=== PATIENT | male | born 1940 | race Caucasian/White ===

== ENCOUNTER 2017-01-03 10:41 | Emergency (ER) | payer MEDICARE, OTHER ==
[~2017-01-03] VITALS: Ht 182.9 cm; Wt 104.3 kg
[~2017-01-03 10:41] MED LIST: ASP81TEC PO; CHLO25TA14 PO; CITA-105 PO; HYDR-3456 PO; HYDR-3583 PO; LEVO500T69 PO; LORA0.5T PO; METR500T PO; NAPR-243 PO; NFPRILOC40 PO; OMEP20CA12 PO; OXYC-12 PO; POTA10CA43 PO; PRD10T PO; TRIA1TAB2 PO
--- NOTE | 2017-01-03 11:17 | ED Upper Extremity ---
General Stated Complaint: R SHOULDER PAIN - FALL Source: patient Exam Limitations: no limitations History of Present Illness Time seen by provider: 11:16 Initial Comments To ER with right shoulder pain after he fell landing directly on the right shoulder this morning at 6 a.m. Complaints of inability to abduct his arm at the shoulder. He is, however, able to move his shoulder. Denies hitting his head or neck pain. Denies any other pain or injury. History of rotator cuff repair bilaterally. Onset: just prior to arrival Severity: moderate (I) Pain/Injury Location: right shoulder Modifying Factors: Worse With Movement Allergies and Home Medications Allergies Coded Allergies: ibuprofen (Verified Allergy, Intermediate, HEART FLUTTERS, 05/26/07) Home Medications Hydrocodone/Acetaminophen 1 Each Tablet, 1-2 TAB PO Q4-6HR PRN for PAIN, #30 FOR PAIN Prescribed by: RHONDA LINN on 10/10/14 6966 Lorazepam 0.5 Mg Tablet, 0.5 MG PO Q8H PRN, (Reported) prn anxiety Tramadol HCl 50 Mg Tablet, 50 MG PO Q6H PRN for NAUSEA/VOMITING-1ST LINE, #20 Prescribed by: EDIS DUBON on 01/03/17 1158 Constitutional: see HPI EENTM: see HPI Respiratory: no symptoms reported Cardiovascular: no symptoms reported Genitourinary: no symptoms reported Musculoskeletal: see HPI Skin: no symptoms reported Psychiatric/Neurological: No Symptoms Reported Past Zjrguiz-Vlliya-Qnvikf Hx Patient Social History Recent Foreign Travel: No Contact w/Someone Who Travel: No Immunizations Up To Date Tetanus Booster (TDap): More than 5yrs Date of Pneumonia Vaccine: Mar 12, 2009 Date of Influenza Vaccine: Feb 13, 2014 Surgeries Surgeries: Appendectomy, Gallbladder, Joint Replacement, Orthopedic Cardiovascular Cardiac Disorders: Hypertension Reproductive System Hx Reproductive Disorders: No Sexually Transmitted Disease: No Psychosocial Behavioral Health Disorders: Anxiety, Depression Physical Exam Vital Signs Vital Sign - Last 12Hours 01/03/17 11:11 Temp 97.6 Pulse 76 Resp 18 B/P (MAP) 133/66 Pulse Ox 98 O2 Delivery Room Air Capillary Refill : General Appearance: WD/WN, no apparent distress HEENT: PERRL/EOMI, normal ENT inspection Neck: non-tender, full range of motion Respiratory: normal breath sounds, no respiratory distress, no accessory muscle use Gastrointestinal: normal bowel sounds, non tender, soft Shoulder: normal inspection, limited ROM, pain, No soft tissue tenderness, No swelling Elbow/Forearm: normal inspection, non-tender Wrist: Yes normal inspection, Yes non-tender Hand: normal inspection, non-tender Neurologic/Psychiatric: alert, normal mood/affect, oriented x 3 Skin: normal color, warm/dry Progress/Results/Core Measures Results/Orders My Orders Orders - EDIS DUBON APRN Shoulder, Right, 3 Views (01/03/17 11:15) Ct Extremity Upper Right Wo (01/03/17 11:27) Chest Pa/Lat (2 View) (01/03/17 11:27) Vital Signs/I&O Vital Sign - Last 12Hours 01/03/17 11:11 Temp 97.6 Pulse 76 Resp 18 B/P (MAP) 133/66 Pulse Ox 98 O2 Delivery Room Air Diagnostic Imaging Diagonstic Imaging: Xray Comments NAME: MATEUSMILLY Gonzales [facility] REC#: [id number] PT STATUS: REG ER : 1940 PHYSICIAN: EDIS DUBON APRN ADMIT DATE: 01/03/17/ER Draft Date of Exam:01/03/17 CHEST PA/LAT (2 VIEW) INDICATION: Right-sided pain 2 views of the chest shows cardiomegaly with normal vascularity. The lungs are clear. There is no effusion or pneumothorax. There are changes of several prior kyphoplasties in the thoracolumbar spine. No acute bony abnormality is seen. IMPRESSION: There is cardiomegaly with no failure. The chest is similar to a prior study from 10/10/2014. Dictated on workstation # [id number] Dict: 01/03/17 1138 Trans: 01/03/17 1144 [facility] [id number] Interpreted by: ARCADIO AGUIRRE MD Electronically signed by: NAME: MATEUSMILLY Janet [facility] REC#: [id number] PT STATUS: REG ER : 1940 PHYSICIAN: EDIS DUBON APRN ADMIT DATE: 01/03/17/ER Draft Date of Exam:01/03/17 CT EXTREMITY UPPER RIGHT WO PROCEDURE: CT right upper extremity without contrast. TECHNIQUE: Multiple contiguous axial images were obtained through the right upper extremity without the use of intravenous contrast. Sagittal and coronal reformations were then performed. INDICATION: Right shoulder pain. Fall. COMPARISON: Right shoulder radiographs 01/03/2017. FINDINGS: Mildly displaced fracture involving the base of the coracoid process. This appears to extend into the most superior aspect of the glenoid fossa. Moderate degenerative changes in the right glenohumeral and acromioclavicular joints. Suture anchor in the right humeral head. No other fractures are identified. The visualized soft tissues are unremarkable. IMPRESSION: Mildly displaced right scapular fracture through the base of the coracoid process. The fracture line appears to involve the most superior aspect of the glenoid fossa. No other acute CT findings in the right shoulder. Dictated on workstation # [id number] Dict: 01/03/17 1150 Trans: 01/03/17 1156 [facility] [id number] Interpreted by: BO WHEATLEY MD Electronically signed by: Departure Impression Impression: Primary Impression: Scapula fracture Disposition: 01 HOME, SELF-CARE Condition: Stable Departure-Patient Inst. Decision time for Depature: 11:56 Referrals: DA TRUONG MD (PCP/Family) Primary Care Physician SHANTANU CHACON JONATHAN MD IPSEN,PERI ALMAGUER,ZACKERY LAWS MD,SHEA ASCENCIO MD Patient Instructions: How to Use a Shoulder Sling Add. Discharge Instructions: 1. You have a nondisplaced fracture of your shoulder blade. He should wear a sling for the next 4-6 weeks and follow-up with orthopedics for further recommendations. I've listed local orthopedic surgeons for you, but he may use whoever he would like. These typically do not require surgery. Scripts Tramadol HCl (Ultram) 50 Mg Tablet 50 MG PO Q6H Y for NAUSEA/VOMITING-1ST LINE, #20 TAB Prov: EDIS DUBON APRN 01/03/17 Copy Copies To 1: SHEA GREENE MD, PETER J APRN Jan 03, 2017 11:17
--- NOTE | 2017-01-03 11:33 | Diagnostic Imaging Report ---
INDICATION: Fall, right shoulder pain 3 views of the right shoulder shows no fracture, dislocation or other acute bony abnormality. [place] screw is seen in the humeral head from prior surgery. IMPRESSION: No acute abnormality is seen. Dictated by: Dictated on workstation # [id number]
--- NOTE | 2017-01-03 11:44 | Diagnostic Imaging Report ---
INDICATION: Right-sided pain 2 views of the chest shows cardiomegaly with normal vascularity. The lungs are clear. There is no effusion or pneumothorax. There are changes of several prior kyphoplasties in the thoracolumbar spine. No acute bony abnormality is seen. IMPRESSION: There is cardiomegaly with no failure. The chest is similar to a prior study from 10/10/2014. Dictated by: Dictated on workstation # [id number]
--- NOTE | 2017-01-03 11:56 | Diagnostic Imaging Report ---
PROCEDURE: CT right upper extremity without contrast. TECHNIQUE: Multiple contiguous axial images were obtained through the right upper extremity without the use of intravenous contrast. Sagittal and coronal reformations were then performed. INDICATION: Right shoulder pain. Fall. COMPARISON: Right shoulder radiographs 01/03/2017. FINDINGS: Mildly displaced fracture involving the base of the coracoid process. This appears to extend into the most superior aspect of the glenoid fossa. Moderate degenerative changes in the right glenohumeral and acromioclavicular joints. Suture anchor in the right humeral head. No other fractures are identified. The visualized soft tissues are unremarkable. IMPRESSION: Mildly displaced right scapular fracture through the base of the coracoid process. The fracture line appears to involve the most superior aspect of the glenoid fossa. No other acute CT findings in the right shoulder. Dictated by: Dictated on workstation # [id number]
[2017-01-03] MEDS ORDERED: TRAM-42 PO (11:58)
[2017-01-03 12:28] VITALS: BP 133/66
== END 2017-01-03 12:29 | disposition home or self-care (01) ==
LOC: EDUNIT# 10:41 → ER 10:42
DX: S42.131A Displaced fracture of coracoid process, right shoulder, initial encounter for closed fracture (principal); I10 Essential (primary) hypertension; F41.9 Anxiety disorder, unspecified; F32.9 Major depressive disorder, single episode, unspecified; Z90.49 Acquired absence of other specified parts of digestive tract; W18.30XA Fall on same level, unspecified, initial encounter
CPT/HCPCS: 71020; 73030; 73200; 99282

== ENCOUNTER 2019-01-29 14:44 | Emergency (ER) | payer MEDICARE, OTHER | END 2019-01-29 16:02 | disposition home or self-care (01) | LOC: ER 14:44 ==

== ENCOUNTER → 2019-05-20 | Outpatient (CLI) | payer MEDICARE, OTHER ==
[~2019-05-20] MED LIST changes: +AZIT250T12 PO; +IBUP-1773 PO; +LOSA100T57 PO; +TRAM-42 PO; +VENL150C98 PO
== END ==
LOC: CARD 11:43
PROVIDERS: ATTEND Internal Medicine Cardiovascular Disease
DX: I08.0 Rheumatic disorders of both mitral and aortic valves (principal); I11.0 Hypertensive heart disease with heart failure; I50.9 Heart failure, unspecified; E66.9 Obesity, unspecified; R60.9 Edema, unspecified
CPT/HCPCS: 93306

== ENCOUNTER 2020-08-13 02:12 | Inpatient (IN) | payer MEDICARE ==
[~2020-08-13] VITALS: Ht 177 cm; Wt 100.5 kg
[2020-08-13] MEDS ORDERED: AMIODARONE (BOLUS) 150 MG/3 ML IV ONE (02:18)
[2020-08-13] MEDS ORDERED: AMIODARONE 450 MG/9 ML (CORDARONE) VIAL IV ONE (02:18)
[2020-08-13] MEDS ORDERED: NS (IVPB) 250 ML ONE (02:22)
[2020-08-13] MEDS ORDERED: AMIODARONE INJECTION 450 MG in D5W IV SOLUTION (EXCEL) 250 ML IV SCH (02:30)
[2020-08-13] MEDS ORDERED: AMIODARONE INJECTION 150 MG in D5W 100 ML IVPB 100 ML IV ONE (02:30)
[2020-08-13] MEDS ORDERED: NS IV 1000 ML 1,000 ML IV SCH ×2 (02:30→12:30)
[2020-08-13 02:35] LABS: BASOPHILS # (AUTO) 0.1 10^3/uL (0.0-0.1); BASOPHILS % (AUTO) 1 % (0-10); EOSINOPHILS # (AUTO) 0.1 10^3/uL (0.0-0.3); EOSINOPHILS % (AUTO) 1 % (0-10); HEMATOCRIT 39 % (40-54); HEMOGLOBIN 12.6 g/dL (13.3-17.7); LYMPHOCYTES # (AUTO) 1.5 10^3/uL (1.0-4.0); LYMPHOCYTES % (AUTO) 9 % (12-44); MEAN CORPUSCULAR HEMOGLOBIN 28 pg (25-34); MEAN CORPUSCULAR HGB CONC 32 g/dL (32-36); MEAN CORPUSCULAR VOLUME 89 fL (80-99); MEAN PLATELET VOLUME 11.7 fL (9.0-12.2); MONOCYTES # (AUTO) 1.3 10^3/uL (0.0-1.0); MONOCYTES % (AUTO) 8 % (0-12); NEUTROPHILS # (AUTO) 13.5 10^3/uL (1.8-7.8); NEUTROPHILS % (AUTO) 81 % (42-75); PLATELET COUNT 229 10^3/uL (130-400); WHITE BLOOD COUNT 16.6 10^3/uL (4.3-11.0)
[2020-08-13 02:41] LABS: INR 1.1 (0.8-1.4); PROTHROMBIN TIME PATIENT 14.4 SEC (12.2-14.7)
[2020-08-13 02:42] LABS: BILIRUBIN,URINE NEGATIVE (NEGATIVE); CLARITY,URINE CLEAR; COLOR,URINE YELLOW; GLUCOSE, URINE (UA) NEGATIVE (NEGATIVE); KETONES,URINE NEGATIVE (NEGATIVE); LEUKOCYTE ESTERASE ,URINE NEGATIVE (NEGATIVE); NITRITE,URINE NEGATIVE (NEGATIVE); PH,URINE 5.5 (5-9); PROTEIN,URINE 1+ (NEGATIVE)
--- NOTE | 2020-08-13 02:45 | ED General ---
General Chief Complaint: General Problems/Pain Stated Complaint: DIZZINESS / FALL Nursing Triage Note: brought in by [facility] c/o multiple falls, generalized weakness, near syncope. Nursing Sepsis Screen: No Definite Risk Source of Information: Patient, EMS, Old Records History of Present Illness Date Seen by Provider: Aug 13, 2020 Time Seen by Provider: 02:13 Initial Comments PT ARRIVES VIA EMS FROM HOME PT HAS BEEN DIZZY AND WEAK ALL DAY TODAY--SINCE THURSDAY MORNING 08/12/20 EVERY TIME HE STANDS UP, HE NEARLY PASSES OUT. PT STATES HE FEELS FINE LAYING DOWN PT HAS FALLEN TWICE TODAY BECAUSE OF THIS PT DENIES ACTUALLY PASSING OUT PT DENIES HITTING HIS HEAD AT ANY TIME PT REPORTEDLY FALLS AT LEAST ONCE A WEEK. PT FELL EARLIER TODAY IN THE BATHROOM AND EMS WAS CALLED. PT HAD THESE COMPLAINTS, AND COMPLAINED OF RIGHT SHOULDER PAIN PT REFUSED CARE AT THAT TIME PT CALLED EMS AGAIN THIS EVENING AFTER ANOTHER FALL IN THE HALLWAY HE HAS SOME BRUISING TO LEFT FOREARM AND SMALL SKIN TEARS TO LEFT FOREARM HE DENIES ANY OTHER PAIN OR INJURIES FROM THESE FALLS NO CHEST PAIN NO PALPITATIONS NO SHORTNESS OF BREATH NO NAUSEA/VOMITING OR DIARRHEA NO COUGH OR URI SYMPTOMS NO FEVER/SWEATS/CHILLS WAS INCONTINENT OF URINE EARLIER--STATES HE WAS TOO WEAK AND DIZZY TO MAKE IT TO THE BATHROOM IN TIME. NO HEADACHE NO VISION CHANGES NO PARESTHESIAS OR MOTOR DEFICITS NO NECK OR BACK PAIN PT COMPLAINS OF RIGHT SHOULDER PAIN WITH DEEP BREATHING HE ALSO COMPLAINS OF RLQ PAIN WITH DEEP BREATHING--STATES HE HAS A HERNIA IN THIS AREA. IT DOES NOT HURT HIM ANY OTHER TIME. STATES HE HAD A "GOOD BREAKFAST" THEN HAS NOT FELT LIKE EATING FOR THE REST OF THE DAY PT STATES IS CURRENTLY IN THE HOSPITAL FOR "SHINGLES AND A MILD HEART ATTACK" PT HAS HAD BOTH COVID-19 VACCINES PT DENIES ANY HISTORY OF CARDIAC PROBLEMS PCP: DR. TRUONG Allergies and Home Medications Allergies Coded Allergies: No Known Drug Allergies (Unverified , 01/29/19) Home Medications Azithromycin 250 Mg Tablet, 250 MG PO UD TAKE 2 TABLETS ON DAY ONE THEN TAKE 1 TABLET DAILY FOR FOUR MORE DAYS Prescribed by: YENNI MULLINS on 01/29/19 4179 Ibuprofen 600 Mg Tablet, 600 MG PO Q6H PRN for PAIN-MILD, (Reported) Losartan Potassium 100 Mg Tablet, 100 MG PO DAILY, (Reported) Patient Home Medication List Home Medication List Reviewed: Yes Review of Systems Review of Systems Constitutional: No chills, No diaphoresis; dizziness; No fever; weakness EENTM: no symptoms reported Respiratory: no symptoms reported; No cough, No short of breath Cardiovascular: no symptoms reported, see HPI; No chest pain Gastrointestinal: see HPI; No diarrhea; loss of appetite; No nausea, No vomit ing Genitourinary: see HPI Musculoskeletal: see HPI Skin: see HPI Psychiatric/Neurological: Denies Headache, Denies Numbness, Denies Paresthesia, Denies Seizure, Denies Tingling, Denies Weakness Past Luknrhf-Inxdfn-Yqgzey Hx Past Med/Social Hx: Reviewed and Corrections made Patient Social History Alcohol Use: Denies Use Drug of Choice: DENIES Smoking Status: Former Smoker Type Used: Cigarettes Former Smoker, Quit: Jan 31, 1985 Recent Infectious Disease Expo: No Recent Hopitalizations: No Immunizations Up To Date Tetanus Booster (TDap): More than 5yrs Date of Pneumonia Vaccine: Mar 12, 2009 Date of Influenza Vaccine: Feb 13, 2014 Seasonal Allergies Seasonal Allergies: No Past Medical History Surgeries: Yes (BILAT RCR, HAND SURG, L TKR, THORACENTESIS;COLONOSCOPIES/POLYPECTOMY) Appendectomy, Gallbladder, Joint Replacement, Orthopedic Respiratory: Yes Pneumonia Cardiac: Yes ( ) Chronic Edema/Swelling, High Cholesterol, Hypertension, Rheumatic Fever Neurological: No Reproductive Disorders: No Sexually Transmitted Disease: No Genitourinary: Yes ("KIDNEY PROBLEMS" ) Gastrointestinal: Yes Gastroesophageal Reflux, Polyps Musculoskeletal: Yes (ROTATOR CUFF REPAIR, LEFT TOTAL KNEE REPLACEMENT, HAND SURGERY) Arthritis Endocrine: Yes (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) Lupus HEENT: No Cancer: No Psychosocial: Yes Anxiety, Depression Integumentary: Yes (CUTANEOUS LUPUS, 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) Blood Disorders: No Family Medical History SOCIAL HISTORY: -ETOH--HISTORY OF USE/ABUSE -DRUGS-DENIES USE -SMOKED 1 PPD X 30 YEARS, QUIT SEVERAL YEARS AGO PAST SURGICAL HISTORY: -BILATERAL ROTATOR CUFF REPAIR -HAND SURGERY -LEFT TOTAL KNEE REPLACEMENT -LEFT THORACENTESIS 10/2012 FOR PLEURAL EFFUSION -APPENDECTOMY -CHOLECYSTECTOMY ( GANGRENOUS GALLBLADDER) -COLONOSCOPY WITH POLYPECTOMY 2013 -BILATERAL CATARACT SURGERY Physical Exam Vital Signs Vital Signs - First Documented 08/13/20 08/13/20 02:13 02:35 Temp 36.0 Pulse 92 Resp 24 B/P (MAP) 104/63 (77) Pulse Ox 91 O2 Delivery Room Air O2 Flow Rate 2.00 Capillary Refill : Less Than 3 Seconds Height, Weight, BMI Height: 6'0" Weight: 230lbs. oz. 104.071523ut; 29.00 BMI Method:Stated General Appearance: No Apparent Distress, WD/WN, Obese HEENT: PERRL/EOMI Neck: Full Range of Motion, Non Tender Respiratory: Decreased Breath Sounds (IN BASES), Other (MILDLY DYSPNEIC--PT STATES HE DOES NOT FEEL SHORT OF BREATH) Cardiovascular: No JVD, No Murmur, Other (INTERMITENT V-TACH, WITH REGULAR RHYTHM IN BETWEEN RUNS OF V-TACH) Gastrointestinal: Soft Extremity: Pedal Edema (+ 1 EDEMA OF RIGHT LEG/ANKLE/FOOT, NO SIGNIFICANT EDEMA TO LEFT LEG. ) Neurologic/Psychiatric: Alert, Oriented x3, No Motor/Sensory Deficits, Other (FLAT AFFECT. ) Skin: Normal Color, Warm/Dry, Ecchymosis (TO LEFT ARM WITH A FEW SUPERFICIAL SKIN TEARS) Progress/Results/Core Measures Suspected Sepsis Recent Fever Within 48 Hours: No Infection Criteria Present: None New/Unexplained Altered Menta: No Sepsis Screen: No Definite Risk SIRS Temperature: Pulse: 92 Respiratory Rate: 24 Laboratory Tests 08/13/20 02:15: White Blood Count 16.6H Blood Pressure 104 /63 Mean: 77 Laboratory Tests 08/13/20 02:15: Creatinine 1.53H, INR Comment 1.1, Platelet Count 229, Total Bilirubin 0.7 Results/Orders Lab Results Laboratory Tests Test 08/13/20 02:15 08/13/20 02:30 Range/Units White Blood Count 16.6 H 4.3-11.0 10^3/uL Red Blood Count 4.43 4.30-5.52 10^6/uL Hemoglobin 12.6 L 13.3-17.7 g/dL Hematocrit 39 L 40-54 % Mean Corpuscular Volume 89 80-99 fL Mean Corpuscular Hemoglobin 28 25-34 pg Mean Corpuscular Hemoglobin Concent 32 32-36 g/dL Red Cell Distribution Width 13.8 10.0-14.5 % Platelet Count 229 130-400 10^3/uL Mean Platelet Volume 11.7 9.0-12.2 fL Immature Granulocyte % (Auto) 1 % Neutrophils (%) (Auto) 81 H 42-75 % Lymphocytes (%) (Auto) 9 L 12-44 % Monocytes (%) (Auto) 8 0-12 % Eosinophils (%) (Auto) 1 0-10 % Basophils (%) (Auto) 1 0-10 % Neutrophils # (Auto) 13.5 H 1.8-7.8 10^3/uL Lymphocytes # (Auto) 1.5 1.0-4.0 10^3/uL Monocytes # (Auto) 1.3 H 0.0-1.0 10^3/uL Eosinophils # (Auto) 0.1 0.0-0.3 10^3/uL Basophils # (Auto) 0.1 0.0-0.1 10^3/uL Immature Granulocyte # (Auto) 0.1 0.0-0.1 10^3/uL Neutrophils % (Manual) 81 % Lymphocytes % (Manual) 11 % Monocytes % (Manual) 4 % Band Neutrophils 4 % Blood Morphology Comment NORMAL Prothrombin Time 14.4 12.2-14.7 SEC INR Comment 1.1 0.8-1.4 Activated Partial Thromboplast Time 33 24-35 SEC D-Dimer 2.57 H 0.00-0.49 UG/ML Sodium Level 139 135-145 MMOL/L Potassium Level 3.6 3.6-5.0 MMOL/L Chloride Level 102 98-107 MMOL/L Carbon Dioxide Level 19 L 21-32 MMOL/L Anion Gap 18 H 5-14 MMOL/L Blood Urea Nitrogen 16 7-18 MG/DL Creatinine 1.53 H 0.60-1.30 MG/DL Estimat Glomerular Filtration Rate 44 BUN/Creatinine Ratio 10 Glucose Level 215 H 70-105 MG/DL Calcium Level 9.2 8.5-10.1 MG/DL Corrected Calcium 9.6 8.5-10.1 MG/DL Magnesium Level 3.0 H 1.6-2.4 MG/DL Total Bilirubin 0.7 0.1-1.0 MG/DL Aspartate Amino Transf (AST/SGOT) 20 5-34 U/L Alanine Aminotransferase (ALT/SGPT) 23 0-55 U/L Alkaline Phosphatase 60 40-136 U/L Total Creatine Kinase 62 30-200 U/L Creatine Kinase MB 1.6 <6.6 NG/ML Myoglobin 160.3 H 10.0-92.0 NG/ML Troponin I 0.037 H <0.028 NG/ML B-Type Natriuretic Peptide 106.7 H <100.0 PG/ML Total Protein 6.8 6.4-8.2 GM/DL Albumin 3.5 3.2-4.5 GM/DL Procalcitonin 0.16 H <0.10 NG/ML Urine Color YELLOW Urine Clarity CLEAR Urine pH 5.5 5-9 Urine Specific [place] >=1.030 1.016-1.022 Urine Protein 1+ H NEGATIVE Urine Glucose (UA) NEGATIVE NEGATIVE Urine Ketones NEGATIVE NEGATIVE Urine Nitrite NEGATIVE NEGATIVE Urine Bilirubin NEGATIVE NEGATIVE Urine Urobilinogen 0.2 < = 1.0 MG/DL Urine Leukocyte Esterase NEGATIVE NEGATIVE Urine RBC (Auto) NEGATIVE NEGATIVE Urine RBC NONE /HPF Urine WBC NONE /HPF Urine Squamous Epithelial Cells RARE /HPF Urine Crystals NONE /LPF Urine Bacteria NEGATIVE /HPF Urine Casts NONE /LPF Urine Mucus NEGATIVE /LPF Urine Culture Indicated NO My Orders Orders - RHONDA LINN DO Ed Iv/Invasive Line Start (08/13/20 02:24) Ekg Tracing (08/13/20 02:24) Catheter(Urinary) Insert & Ass 03,15 (08/13/20 02:24) O2 (08/13/20 02:24) Monitor-Rhythm Ecg Trace Only (08/13/20 02:24) Ct Head Wo-R/O Stroke (08/13/20 02:24) Chest 1 View, Ap/Pa Only (08/13/20 02:24) BNP (08/13/20 02:24) Cbc With Automated Diff (08/13/20 02:24) Comprehensive Metabolic Panel (08/13/20 02:24) Creatine Kinase (08/13/20 02:24) Creatine Kinase Mb (08/13/20 02:24) Magnesium (08/13/20 02:24) Protime With Inr (08/13/20 02:24) Partial Thromboplastin Time (08/13/20 02:24) Ua Culture If Indicated (08/13/20 02:24) Myoglobin Serum (08/13/20 02:24) Troponin I (08/13/20 02:24) Ed Iv/Invasive Line Start (08/13/20 02:24) Ns Iv 1000 Ml (Sodium Chloride 0.9%) (08/13/20 02:30) Ekg Tracing (08/13/20 02:24) Ekg Tracing (08/13/20 02:24) Amiodarone Injection (Cordarone Injectio (08/13/20 02:30) Amiodarone Injection (Cordarone Injectio (08/13/20 02:30) Amiodarone For Bolus (Cordarone Bolus) (08/13/20 02:18) Amiodarone Injection (Cordarone Injectio (08/13/20 02:18) Ns (Ivpb) (Sodium Chloride 0.9%) (08/13/20 02:22) Manual Differential (08/13/20 02:15) Medications Given in ED Current Medications Medications Dose Ordered Sig/Gaby Route Start Time Stop Time Status Last Admin Dose Admin Amiodarone HCl 150 mg STK-MED ONCE IV 08/13/20 02:18 08/13/20 02:26 DC 08/13/20 02:37 150 MG Amiodarone HCl 150 mg/Dextrose 103 ml @ 600 mls/hr ONCE ONCE IV 08/13/20 02:30 08/13/20 02:40 DC 08/13/20 02:39 600 MLS/HR Vital Signs/I&O 08/13/20 08/13/20 08/13/20 02:13 02:35 02:37 Temp 36.0 Pulse 92 92 Resp 24 B/P (MAP) 104/63 (77) 104/63 Pulse Ox 91 93 O2 Delivery Room Air Nasal Cannula O2 Flow Rate 2.00 Capillary Refill : Less Than 3 Seconds Blood Pressure Mean: 77 Progress Note : Progress Note PT IN V-TACH ON ARRIVAL, PT IS UNAWARE OF IRREGULAR HEART BEAT AND STATES HE FEELS FINE LONG HE IS LAYING DOWN PT IS HAVING FREQUENT RUNS OF V-TACH, WITH NORMAL SINUS RHYTHM IN BETWEEN GIVEN AMIODARONE BOLUS AND STARTED ON AMIODARONE DRIP, WITH RESOLUTION OF V-TACH AFTER RECEIVING HEAD CT REPORT, GAVE PT DOSE OF LOVENOX WILL OBTAIN ULTRASOUND, ECHOCARDIOGRAM AND V/Q SCAN IN AM--GFR 44 AT THIS TIME, BELOW RECOMMENDED LEVEL FOR IV CONTRAST. O2 SATS 92-93% ON ROOM AIR, PLACED ON O2 AT 2L/NC AND O2 SATS UP TO 97% BP STABLE THROUGHOUT ER STAY PT HAD NO COMPLAINTS DURING ER STAY ECG Initial ECG Impression Date: Aug 13, 2020 Initial ECG Impression Time: 02:18 Initial ECG Rate: 128 Initial ECG Rhythm: V.Tach Initial ECG Comparisson: Changed EKG : EKG Time: 02:18 Rate: 118 Rhythm: V.Tach Comment EKG #3 AT 0220, RATE 101, SINUS ARRHYTHMIA Diagnostic Imaging Comments CXR--CHRONIC LUNG CHANGES, NO CHANGE FROM PREVIOUS, PENDING RADIOLOGIST REVIEW XRAYS RIGHT SHOULDER--NO ACUTE PROCESS, CHRONIC CHANGES, PENDING RADIOLOGIST REVIEW CT HEAD--NO ACUTE INFARCT, HEMORRHAGE OR EDEMA. PER RADIOLOGIST VIA PHONE AT [phone], AND VIA FAX AT [phone] Critical Care Note Critical Care Total Time (minutes) 30 Departure Communication (Admissions) 0220--SPOKE WITH DR. GARCIA, [employer]SEM[employer]. HE ADVISES AMIODARONE BOLUS AND DRIP. 032--SPOKE WITH DR. LANCASTER, ACCEPTS PT FOR ADMIT 033--SPOKE WITH E-ICU PHYSICIAN AND REPORT GIVEN. Impression Primary Impression: Ventricular tachycardia Additional Impressions: Elevated troponin Leg edema Renal insufficiency Hyperglycemia Frequent falls Disposition: ADMITTED INPATIENT Condition: Stable Admissions Decision to Admit Reason: Admit from ER (General) Decision to Admit/Date: Aug 13, 2020 Time/Decision to Admit Time: 03:30 Departure-Patient Inst. Referrals: DA TRUONG MD (PCP/Family) Primary Care Physician RHONDA LINN DO Aug 13, 2020 02:45
[2020-08-13 02:46] LABS: ALBUMIN 3.5 GM/DL (3.2-4.5); BILIRUBIN,TOTAL 0.7 MG/DL (0.1-1.0); CALCIUM 9.2 MG/DL (8.5-10.1); CREATININE SERUM 1.53 MG/DL (0.60-1.30); POTASSIUM 3.6 MMOL/L (3.6-5.0); TOTAL PROTEIN 6.8 GM/DL (6.4-8.2)
[2020-08-13 02:53] LABS: CREATINE KINASE MB 1.6 NG/ML (<6.6)
[2020-08-13 02:57] LABS: BACTERIA,URINE NEGATIVE /HPF; SQUAMOUS EPITHELIAL CELL,UR RARE /HPF
[2020-08-13 03:07] LABS: BAND NEUTROPHILS 4 %; LYMPHOCYTES % (MANUAL) 11 %; MONOCYTES % (MANUAL) 4 %; NEUTROPHILS % (MANUAL) 81 %; RBC MORPH NORMAL
[2020-08-13] MEDS ORDERED: ENOXAPARIN 100 MG/1 ML (LOVENOX) SYR SC ONE (04:00)
[2020-08-13 04:10] VITALS: BP 100/33
[2020-08-13] MEDS ORDERED: CATHETER FLUSH 10 ML SYR IV PRN (05:00)
[2020-08-13] MEDS ORDERED: LACTATED RINGERS 1,000 ML IV ONE (05:22)
--- NOTE | 2020-08-13 05:24 | Pulmonary Consultation ---
History of Present Illness History of Present Illness Date Seen by Provider: Aug 13, 2020 Time Seen by Provider: 05:19 Date of Admission Allergies and Home Medications Allergies Coded Allergies: No Known Drug Allergies (Unverified , 01/29/19) Home Medications Azithromycin 250 Mg Tablet, 250 MG PO UD TAKE 2 TABLETS ON DAY ONE THEN TAKE 1 TABLET DAILY FOR FOUR MORE DAYS Prescribed by: YENNI MULLINS on 01/29/19 1539 Ibuprofen 600 Mg Tablet, 600 MG PO Q6H PRN for PAIN-MILD, (Reported) Losartan Potassium 100 Mg Tablet, 100 MG PO DAILY, (Reported) Past Uqbmtym-Hlruoj-Bywdxj Hx Past Med/Social Hx: Reviewed and Corrections made Patient Social History Alcohol Use: Denies Use Drug of Choice: DENIES Smoking Status: Former Smoker Type Used: Cigarettes Former Smoker, Quit: Jan 31, 1985 Recent Infectious Disease Expo: No Recent Hopitalizations: No Have you traveled recently?: No Immunizations Up To Date Tetanus Booster (TDap): More than 5yrs Date of Pneumonia Vaccine: Mar 12, 2009 Date of Influenza Vaccine: Mar 11, 2020 Seasonal Allergies Seasonal Allergies: No Past Medical History Surgeries: Yes (BILAT RCR, HAND SURG, L TKR, THORACENTESIS;COLONOSCOPIES/POLYPECTOMY) Appendectomy, Gallbladder, Joint Replacement, Orthopedic Respiratory: Yes Pneumonia Cardiac: Yes (CHF) Chronic Edema/Swelling, High Cholesterol, Hypertension Neurological: No Reproductive Disorders: No Sexually Transmitted Disease: No Genitourinary: No Gastrointestinal: Yes Gastroesophageal Reflux, Polyps Musculoskeletal: Yes (ROTATOR CUFF REPAIR, LEFT TOTAL KNEE REPLACEMENT, HAND SURGERY) Arthritis Endocrine: Yes (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 oz. 104.262174ys; 29.04 BMI Method:Stated Exam Exam Vital Signs Date Time Temp Pulse Resp B/P (MAP) Pulse Ox O2 Delivery O2 Flow Rate FiO2 08/13/20 04:52 97 Nasal Cannula 2.00 08/13/20 04:41 36.4 80 18 107/66 (80) 97 Nasal Cannula 2.00 08/13/20 04:10 36.6 79 18 100/33 98 Nasal Cannula 2.00 08/13/20 02:37 92 104/63 08/13/20 02:35 93 Nasal Cannula 2.00 08/13/20 02:13 36.0 92 24 104/63 (77) 91 Room Air I & O 08/13/20 07:00 Intake Total 1103 ml Balance 1103 ml Height & Weight Height: 6'0" Weight: 230lbs. oz. 104.083905tn; 29.04 BMI Method:Stated General Appearance: No Apparent Distress, WD/WN, Obese HEENT: PERRL/EOMI Neck: Full Range of Motion, Non Tender Respiratory: Decreased Breath Sounds (IN BASES), Other (MILDLY DYSPNEIC--PT STATES HE DOES NOT FEEL SHORT OF BREATH) Cardiovascular: No JVD, No Murmur, Other (INTERMITENT V-TACH, WITH REGULAR RHYTHM IN BETWEEN RUNS OF V-TACH) Capillary Refill: Less Than 3 Seconds Extremity: Pedal Edema (+ 1 EDEMA OF RIGHT LEG/ANKLE/FOOT, NO SIGNIFICANT EDEMA TO LEFT LEG. ) Neurologic/Psychiatric: Alert, Oriented x3, No Motor/Sensory Deficits, Other (FLAT AFFECT. ) Results Lab Laboratory Tests 08/13/20 02:15 Assessment/Plan Assessment/Plan Vtach upon arrival -Ammio gtt -Cardiology following -Echo pending -Start Lr at 100ml/hr Leukocytosis -Check Ornelas cultures -Check PCT Afib -Lovenox S/p fall -Head CT negative Acute renal failure -Monitor PT IN V-TACH ON ARRIVAL, PT IS UNAWARE OF IRREGULAR HEART BEAT AND STATES HE FEELS FINE LONG HE IS LAYING DOWN PT IS HAVING FREQUENT RUNS OF V-TACH, WITH NORMAL SINUS RHYTHM IN BETWEEN SHELBI GABRIEL DO Aug 13, 2020 05:23
[2020-08-13] MEDS ORDERED: LACTATED RINGERS 1,000 ML IV SCH (05:30)
[2020-08-13] MEDS: CATHETER FLUSH 10 ML SYR IV SCH ×3 (05:30→23:09)
--- NOTE | 2020-08-13 07:33 | Diagnostic Imaging Report ---
PROCEDURE: CT head wo r/o stroke. TECHNIQUE: Multiple contiguous axial images were obtained through the brain without the use of intravenous contrast. Auto Exposure Controls were utilized during the CT exam to meet ALARA standards for radiation dose reduction. INDICATION: Dizziness and fall COMPARISON: 10/10/2014 Ventricles and sulci are diffusely prominent. There has been mild overall worsening of low-density throughout the cerebral white matter however no hemorrhage is identified and there is no evidence of geographic low density to indicate territorial infarct. There is atherosclerotic calcification within distal internal carotid and vertebral arteries. Calvarium is intact. Mucous retention cyst or polyps are present in the left maxillary sinus. IMPRESSION: Mild worsening of probable chronic microvascular ischemia however no acute intracranial abnormality is identified. Dictated by: Dictated on workstation # [id number]
--- NOTE | 2020-08-13 07:37 | Diagnostic Imaging Report ---
Indication: Fall and dizziness AP view of the chest is obtained with comparison made to study of 01/29/2019. There is suboptimal inspiration. Heart size and pulmonary vascularity are at the upper limits of normal. There does appear to be atelectasis and/or pneumonitis in the right base. No pneumothorax is seen. IMPRESSION: Borderline cardiomegaly with right basilar atelectasis and/or pneumonitis. There has been minimal interval change. Dictated by: Dictated on workstation # [id number]
--- NOTE | 2020-08-13 07:39 | Diagnostic Imaging Report ---
INDICATION: Right shoulder pain AP and oblique views of the right shoulder reveal previous surgical findings with anchor in the humeral head. No acute fracture or malalignment is seen. IMPRESSION: No evidence of acute abnormality. Dictated by: Dictated on workstation # [id number]
[2020-08-13] MEDS: AMIODARONE 450 MG/250 ML D5W EXCEL IV SCH ×2 (10:35)
[2020-08-13] MEDS ORDERED: LIDOCAINE 1% INJ 20 ML 20 ML VIAL ONE (10:45)
[2020-08-13] MEDS ORDERED: HEParin (CATH LAB) 2,000 ML IV ONE (10:45)
[2020-08-13] MEDS ORDERED: fentaNYL INJ 100 MCG/2 ML AMP ONE (11:29)
[2020-08-13] MEDS ORDERED: MIDAZOLAM 5 MG/5 ML (VERSED) VIAL ONE (11:29)
[2020-08-13] MEDS ORDERED: NS IV 1000 ML 1,000 ML ONE (11:54)
--- NOTE | 2020-08-13 12:08 | Consultation-Cardiology ---
HPI-Cardiology Cardiology Consultation Date of Consultation 08/13/20 Date of Admission Time Seen by Provider: 12:02 Indication: Ventricular tachycardia HPI 80 years old gentleman with no significant past history, came into the emergency room noted to have dizziness and lightheadedness, has been having multiple falls, was noted to have ventricular tachycardia. Denied any chest pain. No shortness of breath, started on amiodarone drip. On my evaluation was feeling better. Home Medications & Allergies Allergies: Coded Allergies: No Known Drug Allergies (Unverified , 01/29/19) Home Medication List Reviewed: Yes [id number] Hx Patient Social History Marital Status: Recreational Drug Use: No Drug of Choice: DENIES Smoking Status: Former Smoker Type Used: Cigarettes Recent Hopitalizations: No Have you traveled recently?: No Immunizations Up To Date Tetanus Booster (TDap): More than 5yrs Date of Pneumonia Vaccine: Mar 12, 2009 Date of Influenza Vaccine: Mar 11, 2020 Past Medical History Noncontributory Family Medical History Family Medical Hx Noncontributory Review of Systems-General Review of Systems Constitutional: No chills, No diaphoresis; dizziness; No fever; weakness EENTM: no symptoms reported Respiratory: no symptoms reported; No cough, No short of breath Cardiovascular: see HPI; No chest pain; other (Dizziness and near syncope) Gastrointestinal: see HPI; No diarrhea; loss of appetite; No nausea, No vomiting Genitourinary: see HPI Musculoskeletal: see HPI Skin: see HPI Psychiatric/Neurological: Denies Headache, Denies Numbness, Denies Paresthesia, Denies Seizure, Denies Tingling, Denies Weakness Reviewed Test Results Reviewed Test Results Lab Laboratory Tests Test 08/13/20 02:15 08/13/20 02:30 08/13/20 06:00 08/13/20 08:05 Range/Units White Blood Count 16.6 H 4.3-11.0 10^3/uL Red Blood Count 4.43 4.30-5.52 10^6/uL Hemoglobin 12.6 L 13.3-17.7 g/dL Hematocrit 39 L 40-54 % Mean Corpuscular Volume 89 80-99 fL Mean Corpuscular Hemoglobin 28 25-34 pg Mean Corpuscular Hemoglobin Concent 32 32-36 g/dL Red Cell Distribution Width 13.8 10.0-14.5 % Platelet Count 229 130-400 10^3/uL Mean Platelet Volume 11.7 9.0-12.2 fL Immature Granulocyte % (Auto) 1 % Neutrophils (%) (Auto) 81 H 42-75 % Lymphocytes (%) (Auto) 9 L 12-44 % Monocytes (%) (Auto) 8 0-12 % Eosinophils (%) (Auto) 1 0-10 % Basophils (%) (Auto) 1 0-10 % Neutrophils # (Auto) 13.5 H 1.8-7.8 10^3/uL Lymphocytes # (Auto) 1.5 1.0-4.0 10^3/uL Monocytes # (Auto) 1.3 H 0.0-1.0 10^3/uL Eosinophils # (Auto) 0.1 0.0-0.3 10^3/uL Basophils # (Auto) 0.1 0.0-0.1 10^3/uL Immature Granulocyte # (Auto) 0.1 0.0-0.1 10^3/uL Neutrophils % (Manual) 81 % Lymphocytes % (Manual) 11 % Monocytes % (Manual) 4 % Band Neutrophils 4 % Blood Morphology Comment NORMAL Prothrombin Time 14.4 12.2-14.7 SEC INR Comment 1.1 0.8-1.4 Activated Partial Thromboplast Time 33 24-35 SEC D-Dimer 2.57 H 0.00-0.49 UG/ML Sodium Level 139 135-145 MMOL/L Potassium Level 3.6 3.6-5.0 MMOL/L Chloride Level 102 98-107 MMOL/L Carbon Dioxide Level 19 L 21-32 MMOL/L Anion Gap 18 H 5-14 MMOL/L Blood Urea Nitrogen 16 7-18 MG/DL Creatinine 1.53 H 0.60-1.30 MG/DL Estimat Glomerular Filtration Rate 44 BUN/Creatinine Ratio 10 Glucose Level 215 H 70-105 MG/DL Calcium Level 9.2 8.5-10.1 MG/DL Corrected Calcium 9.6 8.5-10.1 MG/DL Magnesium Level 3.0 H 1.6-2.4 MG/DL Total Bilirubin 0.7 0.1-1.0 MG/DL Aspartate Amino Transf (AST/SGOT) 20 5-34 U/L Alanine Aminotransferase (ALT/SGPT) 23 0-55 U/L Alkaline Phosphatase 60 40-136 U/L Total Creatine Kinase 62 30-200 U/L Creatine Kinase MB 1.6 <6.6 NG/ML Myoglobin 160.3 H 10.0-92.0 NG/ML Troponin I 0.037 H <0.028 NG/ML B-Type Natriuretic Peptide 106.7 H <100.0 PG/ML Total Protein 6.8 6.4-8.2 GM/DL Albumin 3.5 3.2-4.5 GM/DL Procalcitonin 0.16 H <0.10 NG/ML Urine Color YELLOW Urine Clarity CLEAR Urine pH 5.5 5-9 Urine Specific Chavies >=1.030 1.016-1.022 Urine Protein 1+ H NEGATIVE Urine Glucose (UA) NEGATIVE NEGATIVE Urine Ketones NEGATIVE NEGATIVE Urine Nitrite NEGATIVE NEGATIVE Urine Bilirubin NEGATIVE NEGATIVE Urine Urobilinogen 0.2 < = 1.0 MG/DL Urine Leukocyte Esterase NEGATIVE NEGATIVE Urine RBC (Auto) NEGATIVE NEGATIVE Urine RBC NONE /HPF Urine WBC NONE /HPF Urine Squamous Epithelial Cells RARE /HPF Urine Crystals NONE /LPF Urine Bacteria NEGATIVE /HPF Urine Casts NONE /LPF Urine Mucus NEGATIVE /LPF Urine Culture Indicated NO Lactic Acid Level 2.09 *H 1.88 0.50-2.00 MMOL/L Test 08/13/20 11:35 Range/Units Glucometer 124 H 70-110 MG/DL Physical Exam Physical Exam Vital Signs Vital Signs - First Documented 08/13/20 08/13/20 02:13 02:35 Temp 36.0 Pulse 92 Resp 24 B/P (MAP) 104/63 (77) Pulse Ox 91 O2 Delivery Room Air O2 Flow Rate 2.00 Capillary Refill : Less Than 3 Seconds Height, Weight, BMI Height: 6'0" Weight: 230lbs. oz. 104.076586pq; 29.04 BMI Method:Stated General Appearance: No Apparent Distress, WD/WN, Obese Eyes: Bilateral Eye Normal Inspection, Bilateral Eye PERRL, Bilateral Eye EOMI HEENT: PERRL/EOMI Neck: Full Range of Motion, Non Tender Respiratory: Chest Non Tender, Lungs Clear, Decreased Breath Sounds (IN BASES), Other (MILDLY DYSPNEIC--PT STATES HE DOES NOT FEEL SHORT OF BREATH) Cardiovascular: Regular Rate, Rhythm, No JVD, No Murmur Gastrointestinal: Soft Back: Normal Inspection, No CVA Tenderness, No Vertebral Tenderness Extremity: Pedal Edema (+ 1 EDEMA OF RIGHT LEG/ANKLE/FOOT, NO SIGNIFICANT EDEMA TO LEFT LEG. ) Neurologic/Psychiatric: Alert, Oriented x3, No Motor/Sensory Deficits, Other (FLAT AFFECT. ) Skin: Normal Color, Warm/Dry, Ecchymosis (TO LEFT ARM WITH A FEW SUPERFICIAL SKIN TEARS) Lymphatic: No Adenopathy A/P-Cardiology Admission Diagnosis Wide-complex tachycardia Dizziness and lightheadedness Hypertension Assessment/Plan Wide-complex tachycardia, multiple episodes, frequent PVCs, symptomatic. Started on amiodarone drip. I am planning to proceed with left heart catheterization possible PTCA. Dizziness and lightheadedness, near syncope secondary to tachycardia. Feeling better at this time Hypertension, monitor blood pressure Echocardiogram showed normal LV size and function, EF 60%, moderate mitral regurgitation, mild tricuspid regurgitation. Left atrial dilatation 5.1 cm. TERESA HU MD Aug 13, 2020 12:07
--- NOTE | 2020-08-13 12:09 | Cardiac Procedure Note-CS/ASA ---
Pre-Procedure Note Pre-Op Procedure Note H&P Reviewed The H&P was reviewed, patient examined and no changes noted. Date H&P Reviewed: Aug 13, 2020 Time H&P Reviewed: 12:09 Conscious Sedation Pre-Proced Time 12:09 ASA Score 3 For ASA 3 and 4: Consider anesthesia and medical clearance. Also, for patients with a history of failed moderate sedation consider anesthesia. Airway Lungs Heart ASA score ASA 1: a normal healthy patient ASA 2: a patient with a mild systemic disease (mid diabetes, controlled hypertension, obesity x ASA 3: a patient with a severe systemic disease that limits activity (angina, COPD, prior Myocardial infarction) ASA 4: a patient with an incapacitating disease that is a constant threat to life (CHF, renal failure) ASA 5: a moribund patient not expected to survive 24 hrs. (ruptured aneurysm) ASA 6: a declared brain- patient whose organs are being harvested. For emergent operations, add the letter E after the classification Mallampati Classification Grade 3 Sedation Plan Analgesia, Amnesia, Plan communicated to team members, Discussed options with patient/fam, Discussed risks with patient/fam The patient is an appropriate candidate to undergo the planned procedure, sedation, and anesthesia. The patient immediately re-assessed prior to indication. TERESA HU MD Aug 13, 2020 12:09
--- NOTE | 2020-08-13 12:36 | Cardiac Cath Report ---
Cardiac Cath Report Physician (s)/Dermatology Teacher (s) Physician TERESA HU MD Pre-Procedure Diagnosis Pre-Procedure Diagnosis: Wide-complex tachycardia Post-Procedure Note Procedure Start Date: Aug 13, 2020 Name of Procedure: Coronary angiogram Aortic arch angiogram Findings/Procedure Note PROCEDURE NOTE: 80 years old gentleman admitted with dizziness, noted to have intermittent wide- complex tachycardia, symptomatic. I decided to proceed with cardiac catheterization. After explaining the procedure to the patient, all pros and cons were explained, all questions were answered. The patient signed the consent and then he was placed on the cardiac catheterization laboratory. Groin was prepped SL fashion local anesthesia was used. Sheath placed in the right femoral artery. Karen right and left catheter were used to access the coronary system. Pigtail was used, I was unable to cross over to the left ventricular cavity, I evaluated the pressure in the aorta rather than performed aortic arch angiogram At the end of the procedure the sheath was removed. Closure device was used FINDINGS: Hemodynamics LV no LV pressure available Aorta 91/52 mean of 56 ANATOMY: Left Main is free of obstructive disease Left Anterior Descending is heavily calcified artery, 50% stenosis at the distal LAD nonobstructive disease Left Circumflex is heavily calcified artery with mild to moderate disease nonobstructive disease Right Coronory Artery is calcified artery with mild to moderate disease nonobstructive disease Aorta evaluation done with aortic arch angiogram showing hypertensive changes, no dissection or aneurysm, normal origin of the innominate artery left carotid and left subclavian arteries CONCLUSION: 1. Heavily calcified arteries, mild to moderate disease nonobstructive disease 2. Hypertensive changes in the thoracic aorta, no dissection or aneurysm DISCUSSION AND RECOMMENDATION: Continue to maximize medical therapy. Patient is starting on oral anti coagulation Anesthesia Type: Conscious Sedation Estimated blood loss (mL): 25 ml Contrast Amount: 55 ml Total Radiation Dose: 764 mGy Post-Procedure Diagnosis Post-operative diagnosis: Wide-complex tachycardia Paroxysmal atrial fibrillation Hypertension Dizziness and near syncope TERESA HU MD Aug 13, 2020 12:35
[2020-08-13] MEDS: NS IV 1000 ML 1,000 ML IV SCH (12:38)
--- NOTE | 2020-08-13 12:38 | Diagnostic Imaging Report ---
PROCEDURE: US Venous Lower Ext Mykel. TECHNIQUE: Multiple real-time grayscale images were obtained over the lower extremities in various projections, bilaterally. Additional duplex Doppler and color Doppler images were also obtained. INDICATION: Lower extremity swelling. FINDINGS: There is no evidence of right or left large marjorie-DVT. Both lower extremity deep venous systems demonstrate normal compressibility with normal response to augmentation and Valsalva. No fluid collection or mass is detected. IMPRESSION: No evidence of right or left lower extremity DVT. Dictated by: Dictated on workstation # [id number]
[2020-08-13] MEDS ORDERED: PATIENT MAY USE OWN MEDS, ALL PO SCH (12:45)
--- NOTE | 2020-08-13 13:02 | History & Physical-Hospitalist ---
ELEONORA CEBALLOS MED STUDENT 08/13/20 1301: History of Present Illness HPI/Chief Complaint Mr. Lutz is an 80 year old man seen today due to ventricular tachycardia with elevated troponins. He reports having dizziness and several falls last night, the first occurring at 12:30 am, where he fell forward. He did not hit his head, only reports pain in his arms following this fall. He fell again twice around 1:20 am, but was caught each time and denies any injury with these. He describes feeling dizzy and having tunnel vision before falling, but never lost consciousness, and denies having any confusion. However, his daughter who was with him today reports he was confused for about a minute following each fall. Otherwise, his only complaint is of recent R shoulder pain he associates with strain getting out of bed and with going to [facility] to visit his , which is new but began prior to falls. He has chronic problems with that shoulder. Denies any fevers/chills, numbness, weakness, vision changes or other sensory changes, CP/SOB, palpitations, cough, abdominal pain, n/v, diarrhea, constipation, urinary retention, dysuria. Source: patient, family Exam Limitations: no limitations Date Seen 08/13/20 Time Seen by a Provider: 08:30 Attending Physician Becca Reyes MD PCP Alvaro Lebron MD Referring Physician Date of Admission Aug 13, 2020 at 03:30 Home Medications & Allergies Home Medications Reviewed patient Home Medication Reconciliation performed by pharmacy medication reconciliations electrocardiograph technician and/or nursing. Patients Allergies have been reviewed. Allergies Allergies Coded Allergies No Known Drug Allergies (Unverified01/29/19) Patient Social History Marrital Status: Tobacco Use?: No Smoking Status: Former Smoker (1 to 3 ppd for 30 years, quit 40 years ago) Pt stated abuse/neglect: No Immunizations Up To Date Influenza Vaccine Up-to-Date: Yes; Up-to-Date Date of Pneumonia Vaccine: Mar 12, 2009 Current Status Do you have an Advance Directi: No Communicates: Verbally Primary Language: Haitian Family Medical History Family Hx: SOCIAL HISTORY: -ETOH--HISTORY OF USE/ABUSE -DRUGS-DENIES USE -SMOKED 1 PPD X 30 YEARS, QUIT SEVERAL YEARS AGO PAST SURGICAL HISTORY: -BILATERAL ROTATOR CUFF REPAIR -HAND SURGERY -LEFT TOTAL KNEE REPLACEMENT -LEFT THORACENTESIS 10/2012 FOR PLEURAL EFFUSION -APPENDECTOMY -CHOLECYSTECTOMY ( GANGRENOUS GALLBLADDER) -COLONOSCOPY WITH POLYPECTOMY 2013 -BILATERAL CATARACT SURGERY Review of Systems Constitutional: No chills, No diaphoresis; dizziness; No fever, No weakness EENTM: No hearing loss, No blurred vision, No double vision, No vision loss Respiratory: No cough, No dyspnea on exertion, No short of breath Cardiovascular: No chest pain, No edema, No palpitations, No syncope (denies loss of consciousness) Gastrointestinal: No abdominal pain, No constipation, No diarrhea, No melena, No nausea, No vomiting Genitourinary: No dysuria, No frequency, No hematuria, No hesitancy Musculoskeletal: joint pain (R shoulder), muscle stiffness (R shoulder) Psychiatric/Neurological: Denies Headache, Denies Numbness, Denies Tingling, Denies Weakness Physical Exam Physical Exam Vital Signs Vital Signs - First Documented 08/13/20 08/13/20 02:13 02:35 Temp 36.0 Pulse 92 Resp 24 B/P (MAP) 104/63 (77) Pulse Ox 91 O2 Delivery Room Air O2 Flow Rate 2.00 Capillary Refill : Less Than 3 Seconds Height, Weight, BMI Height: 6'0" Weight: 230lbs. oz. 104.048282ur; 29.04 BMI Method:Stated General Appearance: No Apparent Distress, Obese Eyes: Bilateral Eye Normal Inspection, Bilateral Eye PERRL, Bilateral Eye EOMI HEENT: PERRL/EOMI; No Scleral Icterus (L), No Scleral Icterus (R) Neck: Normal Inspection, Non Tender, Supple Respiratory: Chest Non Tender, Lungs Clear, Normal Breath Sounds, No Accessory Muscle Use, No Respiratory Distress Cardiovascular: Regular Rate, Rhythm (very distant heart sounds), No Edema, No Murmur, Normal Peripheral Pulses Gastrointestinal: Normal Bowel Sounds, No Organomegaly, Non Tender, Soft Extremity: Normal Capillary Refill, Normal Inspection, Non Tender, No Calf Tenderness Neurologic/Psychiatric: Alert, Oriented x3, Normal Mood/Affect Skin: Normal Color, Warm/Dry, Ecchymosis (bilateral forearms) Results Results/Procedures Labs Laboratory Tests 08/13/20 02:15 Patient resulted labs reviewed. Assessment/Plan Assessment and Plan Ventricular tachycardia w/ positive troponins * Converted from vtach with amiodarone drip * Echocardiogram shows normal LV size and function, EF 60%, moderate mitral regurgitation, mild tricuspid regurgitation. Left atrial dilatation 5.1 cm. * Cardic catheterization, to evaluate for IL as cause of vtach, shows heavily calcified arteries, mild to moderate nonobstructive disease, as well as h ypertensive changes in the thoracic aorta, no dissection or aneurysm Dizziness/falls * Most likely due to Vtach * CT head negative for any acute intracranial abnormality * LE venous doppler negative or any thrombus * CXR shows borderline cardiomegaly with right basilar atelectasis and/or pneumonitis. 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 He was admitted to the ICU on amiodarone. He was seen by cardiology who is recommending a cardiac cath. Underlying rhythm revealed atrial fibrillation and he is on Eliquis for anticoagulation. Diagnosis/Problems Diagnosis/Problems (1) Ventricular tachycardia Status: Acute (2) Leg edema Status: Acute (3) Elevated troponin Status: Acute (4) Frequent falls Status: Acute (5) Renal insufficiency Status: Acute (6) Lupus Status: Chronic (7) Hypertension Status: Acute Supervisory-Addendum Brief Verification & Attestation Participated in pt care: history, MDM, physical Personally performed: exam, history, MDM, supervision of care Care discussed with: Medical Student Procedures: n/a Results interpretation: Verified all documentation Verification and Attestation of Medical Student E/M Service A medical student performed and documented this service in my presence. I reviewed and verified all information documented by the medical student and made modifications to such information, when appropriate. I personally performed the physical exam and medical decision making. Mandi Clemons, Aug 13, 2020,14:01 ELEONORA CEBALLOS MED STUDENT Aug 13, 2020 13:01 MANDI CLEMONS MD Aug 13, 2020 14:02
[2020-08-13] MEDS ORDERED: ENOXAPARIN 100 MG/1 ML (LOVENOX) SYR SC SCH (18:00)
[2020-08-13] MEDS: AMIODARONE 200 MG (CORDARONE) TAB PO SCH (21:21)
[2020-08-13] MEDS: APIXABAN 5 MG (ELIQUIS) TABLET PO SCH (21:21)
[2020-08-14] MEDS: NS IV 1000 ML 1,000 ML IV SCH ×3 (01:38→18:22)
[2020-08-14] MEDS: AMIODARONE 450 MG/250 ML D5W EXCEL IV SCH ×2 (02:39)
--- NOTE | 2020-08-14 03:04 | Pulmonary Progress Note ---
RAMONE CHRISTOPHER MED STUDENT 08/14/20 0304: Subjective Date Seen by a Provider: Aug 14, 2020 Time Seen by a Provider: 02:50 Subjective/Events-last exam Pt has no complaints. Was put on 2 L NC, but denies SOB. Not on home O2. Left heart cath yesterday by Dr. Frost showed hypertensive changes to the aorta and mild to moderate nonobstructive disease. Venous doppler yesterday showed no evidence of DVT. PCT elevated at 0.16. Creatinine improved at 1.11. Review of Systems General: No Chills, No Night Sweats, No Fatigue, No Malaise, No Appetite Pulmonary: No Dyspnea, No Cough, No Pleuritic Chest Pain, No Other Cardiovascular: No: Chest Pain, Palpitations, Orthopnea, Paroxysmal Noc. Dyspnea, Edema, Lt Headedness Sepsis Event Evaluation Height, Weight, BMI Height: 6'0" Weight: 230lbs. oz. 104.419066pe; 29.04 BMI Method:Stated Focused Exam Lactate Level 08/13/20 06:00: Lactic Acid Level 2.09*H 08/13/20 08:05: Lactic Acid Level 1.88 Exam Exam Vital Signs Date Time Temp Pulse Resp B/P (MAP) Pulse Ox O2 Delivery O2 Flow Rate FiO2 08/14/20 02:31 Nasal Cannula 2.00 08/14/20 00:00 90 21 121/66 (81) 90 Room Air 08/14/20 00:00 94 Room Air 08/14/20 00:00 36.7 08/13/20 23:30 83 17 129/72 (90) 90 Room Air 08/13/20 23:00 82 15 144/91 (102) 90 Room Air 08/13/20 22:00 91 110/64 (71) 93 Room Air 08/13/20 21:00 79 14 105/59 (77) 89 Room Air 08/13/20 20:30 80 31 108/59 (76) 89 Room Air 08/13/20 20:00 36.4 08/13/20 20:00 94 Room Air 08/13/20 20:00 93 25 94/68 (77) 90 Room Air 08/13/20 19:30 113 147/94 (124) Room Air 08/13/20 19:23 95 16 82/71 (78) 92 Room Air 08/13/20 19:00 121 08/13/20 18:00 86 25 139/84 (102) 90 Room Air 08/13/20 17:00 87 20 144/73 (96) 91 Room Air 08/13/20 16:15 37.2 08/13/20 16:12 94 Room Air 08/13/20 16:00 78 17 106/66 (79) 91 Room Air 08/13/20 15:00 79 21 142/82 (102) 95 Room Air 08/13/20 14:00 72 55 126/74 (91) 95 Room Air 08/13/20 13:00 71 62 119/76 (90) 96 Room Air 08/13/20 12:51 80 08/13/20 12:00 74 24 91 Room Air 08/13/20 11:45 95 Room Air 08/13/20 11:30 37.4 08/13/20 11:00 76 25 119/73 (88) 92 Room Air 08/13/20 10:00 73 26 129/71 (90) 92 Room Air 08/13/20 09:00 75 24 135/79 (97) 92 Room Air 08/13/20 08:00 80 15 117/87 (97) 94 Room Air 08/13/20 07:51 37.4 08/13/20 07:45 95 Room Air 08/13/20 07:00 78 14 119/77 (91) 92 Room Air 08/13/20 06:41 79 08/13/20 06:00 86 31 113/76 (88) 94 Room Air 08/13/20 05:42 Room Air 08/13/20 05:00 75 28 101/66 (78) 89 Nasal Cannula 2.00 08/13/20 04:52 97 Nasal Cannula 2.00 08/13/20 04:41 36.4 80 18 107/66 (80) 97 Nasal Cannula 2.00 08/13/20 04:22 90 08/13/20 04:10 36.6 79 18 100/33 98 Nasal Cannula 2.00 I & O 08/14/20 07:00 Intake Total 620 ml Output Total 775 ml Balance -155 ml Height & Weight Height: 6'0" Weight: 230lbs. oz. 104.001902ky; 29.04 BMI Method:Stated General Appearance: No Apparent Distress, Obese HEENT: PERRL/EOMI; No Scleral Icterus (L), No Scleral Icterus (R) Neck: Normal Inspection, Non Tender, Supple Respiratory: Chest Non Tender, Lungs Clear, Normal Breath Sounds, No Accessory Muscle Use, No Respiratory Distress Cardiovascular: Regular Rate, Rhythm (very distant heart sounds), No Edema, No Murmur, Normal Peripheral Pulses Capillary Refill: Less Than 3 Seconds Extremity: Normal Capillary Refill, Normal Inspection, No Calf Tenderness, No Pedal Edema Neurologic/Psychiatric: Alert, Oriented x3, Normal Mood/Affect Skin: Normal Color, Warm/Dry, Ecchymosis (bilateral forearms) Lymphatic: No Adenopathy Results Lab Laboratory Tests 08/13/20 02:15 Assessment/Plan Assessment/Plan Vtach upon arrival -[facility] gtt -Cardiology following -Echo yesterday showed EF 55-65%, grade 1 diastolic dysfunction, moderate mitral regurgitation, mild aortic regurgitation -negative BLE venous doppler -NS at 100ml/hr Leukocytosis -CXR shows right basilar atelectasis/pneumonitis -Check Ornelas cultures -PCT elevated Afib -Lovenox changed to Eliquis [address] Frost S/p fall -Head CT negative Acute renal failure -Creatinine improving -continue to monitor SHELBI GABRIEL DO 08/14/20 0437: Assessment/Plan Assessment/Plan Vtach upon arrival -[facility] gtt -Cardiology following -Echo yesterday showed EF 55-65%, grade 1 diastolic dysfunction, moderate mitral regurgitation, mild aortic regurgitation -negative BLE venous doppler -NS at 100ml/hr Leukocytosis- improving -Start Rocephin -CXR shows right basilar atelectasis/pneumonitis -Check Ornelas cultures -PCT elevated Afib -Eliquis S/p fall -Head CT negative Acute renal failure -Creatinine improving -continue to monitor RAMONE CHRISTOPHER MED STUDENT Aug 14, 2020 03:04 SHELBI GABRIEL DO Aug 14, 2020 04:37
[2020-08-14 03:23] LABS: BASOPHILS # (AUTO) 0.1 10^3/uL (0.0-0.1); BASOPHILS % (AUTO) 0 % (0-10); EOSINOPHILS # (AUTO) 0.1 10^3/uL (0.0-0.3); EOSINOPHILS % (AUTO) 1 % (0-10); HEMATOCRIT 31 % (40-54); LYMPHOCYTES # (AUTO) 1.1 10^3/uL (1.0-4.0); LYMPHOCYTES % (AUTO) 9 % (12-44); MEAN CORPUSCULAR HEMOGLOBIN 29 pg (25-34); MEAN CORPUSCULAR HGB CONC 33 g/dL (32-36); MEAN CORPUSCULAR VOLUME 90 fL (80-99); MEAN PLATELET VOLUME 12.2 fL (9.0-12.2); MONOCYTES # (AUTO) 1.4 10^3/uL (0.0-1.0); MONOCYTES % (AUTO) 11 % (0-12); NEUTROPHILS # (AUTO) 9.6 10^3/uL (1.8-7.8); NEUTROPHILS % (AUTO) 79 % (42-75); PLATELET COUNT 179 10^3/uL (130-400); WHITE BLOOD COUNT 12.2 10^3/uL (4.3-11.0)
[2020-08-14 03:38] LABS: ALBUMIN 3.3 GM/DL (3.2-4.5); CHLORIDE 103 MMOL/L (98-107); POTASSIUM 3.6 MMOL/L (3.6-5.0); SODIUM 136 MMOL/L (135-145)
[2020-08-14 03:39] LABS: CALCIUM 8.3 MG/DL (8.5-10.1)
[2020-08-14 03:40] LABS: GLUCOSE 129 MG/DL (70-105); TOTAL PROTEIN 6.2 GM/DL (6.4-8.2)
[2020-08-14 03:41] LABS: CARBON DIOXIDE 21 MMOL/L (21-32)
[2020-08-14 03:42] LABS: BILIRUBIN,TOTAL 0.9 MG/DL (0.1-1.0)
[2020-08-14 03:43] LABS: PHOSPHORUS 2.5 MG/DL (2.3-4.7)
[2020-08-14 03:44] LABS: ALKALINE PHOSPHATASE 40 U/L (40-136); CREATININE SERUM 1.11 MG/DL (0.60-1.30); GFR ESTIMATED > 60
[2020-08-14 03:45] LABS: BUN/CREATININE RATIO 14
[2020-08-14 03:46] LABS: MAGNESIUM 1.9 MG/DL (1.6-2.4)
[2020-08-14 03:47] LABS: ALANINE AMINOTRANSFERASE 18 U/L (0-55)
[2020-08-14] MEDS: cefTRIAXone FOR IV USE 1,000 MG in WATER (STERILE) FOR INJECTION 10 ML IV SCH (05:19)
[2020-08-14] MEDS: CATHETER FLUSH 10 ML SYR IV SCH ×3 (05:20→20:44)
[2020-08-14 06:12] LABS: TRIGLYCERIDES 84 MG/DL (<150); VLDL CHOLESTEROL 17 MG/DL (5-40)
[2020-08-14 06:17] LABS: CHOLESTEROL 100 MG/DL (< 200); HDL CHOLESTEROL 38 MG/DL (40-60)
[2020-08-14] MEDS ORDERED: POTASSIUM PHOSPHATE INJ 30 MM in NS (IVPB) 250 ML IV ONE (08:00)
--- NOTE | 2020-08-14 08:18 | Diagnostic Imaging Report ---
INDICATION: Ventricular tachycardia, elevated troponin. TECHNIQUE: Single view chest 3:55 AM. CORRELATION STUDY: 08/13/2020 FINDINGS: Heart size remains enlarged. Slightly more prominent. Vasculature is also increased with what appears to be pulmonary vascular congestion and perihilar edema. Mildly prominent interstitial markings. Left lung base largely obscured by the cardiac enlargement. IMPRESSION: 1. Cardiac enlargement along with pulmonary vascular congestion likely perihilar edema, adversely changed from prior. Dictated by: Dictated on workstation # [id number]
[2020-08-14] MEDS: APIXABAN 5 MG (ELIQUIS) TABLET PO SCH ×2 (08:39→20:42)
[2020-08-14] MEDS: DOCUSATE SODIUM 100 MG (COLACE) CAP PO SCH ×2 (08:39→20:42)
[2020-08-14] MEDS: AMIODARONE 200 MG (CORDARONE) TAB PO SCH ×2 (08:39→20:43)
--- NOTE | 2020-08-14 08:43 | Cardiology Progress Note ---
Subjective Date Seen by Provider: Aug 14, 2020 Time Seen by Provider: 08:41 Subjective/Events-last exam Patient was seen at bedside, laying down comfortably, denied any pain, feeling better Review of Systems General: No Chills, No Night Sweats; Fatigue, Malaise; No Appetite, No Other HEENT: No Head Aches, No Visual Changes, No Eye Pain, No Ear Pain, No Dysphasia, No Sinus Congestion, No Post Nasal Drip, No Sore Throat, No Other Pulmonary: No Dyspnea, No Cough, No Pleuritic Chest Pain, No Other Cardiovascular: Lt Headedness; No: Chest Pain, Palpitations, Orthopnea, Paroxysmal Noc. Dyspnea, Edema Focused Exam Lactate Level 08/13/20 06:00: Lactic Acid Level 2.09*H 08/13/20 08:05: Lactic Acid Level 1.88 Objective-Cardiology Exam Last Set of Vital Signs Vital Signs 08/14/20 08/14/20 08/14/20 08/14/20 05:00 06:00 07:45 08:38 Temp 36.5 Pulse 46 Resp 32 B/P (MAP) 155/98 (117) Pulse Ox 92 O2 Delivery Room Air O2 Flow Rate 2.00 Capillary Refill : Less Than 3 Seconds I&O Intake and Output 08/14/20 00:00 Intake Total 1723 ml Output Total 825 ml Balance 898 ml Intake Oral 370 ml IV Total 1353 ml Output Urine Total 825 ml # Bowel Movements 1 Daily Weight Change Unsure General: Alert, Oriented X3, Cooperative HEENT: Atraumatic, PERRLA Neck: Supple, No JVD, No Thyromegaly Lungs: Clear to Auscultation, Normal Air Movement Heart: Regular Rate, Normal S1, Normal S2, No Murmurs Abdomen: Normal Bowel Sounds, Soft, No Tenderness, No Hepatosplenomegaly, No Masses Extremities: No Clubbing, No Cyanosis, No Edema, Normal Pulses, No Tenderness/Swelling Skin: No Rashes, No Breakdown, No Significant Lesion Neuro: Normal Gait, Normal Speech, Strength at 5/5 X4 Ext, Normal Tone, Sensation Intact Psych/Mental Status: Mental Status NL, Mood NL Results Lab Laboratory Tests 08/14/20 02:58 A/P-Cardiology Admission Diagnosis Wide-complex tachycardia Dizziness and lightheadedness Hypertension Assessment/Plan Wide-complex tachycardia, multiple episodes, frequent PVCs, symptomatic. most probably paroxysmal atrial fibrillation with aberrant conduction, started on amiodarone, switching to oral amiodarone and will transfer to medical floor Mild elevation in troponin level, cardiac catheterization was carried out on August 13, 2020 showing heavily calcified coronary system with mild to moderate disease nonobstructive disease Dizziness and lightheadedness, near syncope secondary to tachycardia. Feeling better at this time Hypertension, monitor blood pressure Echocardiogram showed normal LV size and function, EF 60%, moderate mitral regurgitation, mild tricuspid regurgitation. Left atrial dilatation 5.1 cm. Generalized weakness, orthostatic dizziness and lightheadedness, unsteady gait, starting PT OT, family inquiring about acute rehab TERESA HU MD Aug 14, 2020 08:43
--- NOTE | 2020-08-14 11:06 | Physical Therapy Evaluation ---
PT Evaluation-General Medical Diagnosis Admission Date Aug 13, 2020 at 03:30 Medical Diagnosis: ventricular tachycardia/elevated troponin Onset Date: Aug 13, 2020 Therapy Diagnosis Therapy Diagnosis: generalized weakness/debility Height/Weight Height (Feet): 6 Height (Inches): 0 Weight (Pounds): 230 Precautions Precautions/Isolations: Fall Prevention, Standard Precautions Referral Physician: Margot Reason for Referral: Evaluation/Treatment Medical History Pertinent Medical History: HTN, Renal Insufficiency Current History EMS secondary to multiple falls secondary to dizziness and weakness Reviewed History: Yes Social History Home: Single Level Current Living Status: Spouse Entry Into Home: Level Entry Prior Prior Level of Function SCALE: Activities may be completed with or without assistive devices. 7-Uvmhlorxmq-tgficzm completes the activity by him/herself with no assistance from a helper. 5-Set-up or Clean-up Assistance-helper sets up or cleans up; patient completes activity. [place] assists only prior to or following the activity. 4-Supervision or Touching Assistance-helper provides verbal cues and/or touching/steadying and/or contact guard assistance as patient completes activity. Assistance may be provided throughout the activity or intermittently. 3-Partial/Moderate Assistance-helper does LESS THAN HALF the effort. [place] lifts, holds or supports trunk or limbs, but provides less than half the effort. 2-Substantial/Maximal Assistance-helper does MORE THAN HALF the effort. [place] lifts or holds trunk or limbs and provides more than half the effort. 3-Weulnkjwt-ftymuh does ALL the effort. Patient does none of the effort to complete the activity. Or, the assistance of 2 or more helpers is required for the patient to complete the activity. If activity was not attempted, code reason: 7-Patient Refused. 9-Not Applicable-not attempted and the patient did not perform the activity before the current illness, exacerbation or injury. 10-Not Attempted due to Environmental Limitations-(lack of equipment, weather restraints, etc.). 88-Not Attempted due to Medical Conditions or Safety Concerns. Bed Mobility: 5 Transfers (B,C,W/C): 5 Gait: 5 Stairs: 9 Indoor Mobility (Ambulation): Independent Stairs: Not Applicalbe Prior Devices Use: Walker PT Evaluation-Current Subjective Patient agrees to PT. Objective Patient Orientation: Person, Time, Situation Attachments: Bojor[place] Catheter, IV ROM/Strength ROM Lower Extremities bilateral LE WFL Strength Lower Extremities 3+/5 grossly bilateral LE all planes Integumentary/Posture Integumentary refer to nursing notes Bowel Incontinence: No Bladder Incontinence: No Posture slight kyphosis Neuromuscular (Tone, Coordination, Reflexes) diminished coordination secondary to weakness/deconditioned state Sensory Vision: Functional Hearing: Impaired Transfers Roll Left to Right (QC): 3 Lying to Sitting/Side of Bed(Q: 3 Sit to Stand (QC): 3 Chair/Epx-vv-Wxwwt Xfer(QC): 3 Toilet Transfer (QC): 3 Gait Does the Patient Walk?: Yes Mode of Locomotion: Walk Anticipated Mode of Locomotion: Walk Walk 10 feet (QC): 3 Walk 50 ft with 2 Turns(QC): 3 Walk 150 ft (QC): 88 Walking 10ft/uneven surface-QC: 88 Distance: 125' Gait Assistive Device: FWW Comments/Gait Description NBOS with shuffle gait sequence Balance Sitting Static: Fair Sitting Dynamic: Fair Standing Static: Fair Standing Dynamic: Fair Picking up an Object (QC): 88 Assessment/Needs 80 y.o. male, will benefit from skilled PT to address functional strength and mobility to improve current LOF to safely return to home at maximum LOF. Rehab Potential: Fair PT Gray Mixing Operator Goals Gray Mixing Operator Goals PT Gray Mixing Operator Goals Time Frame: Sep 01, 2020 Roll Left & Right (QC): 5 Sit to Lying (QC): 5 Lying-Sitting on Side/Bed(QC): 5 Sit to Stand (QC): 5 Chair/Wkp-qz-Adzkg Xfer(QC): 5 Toilet Transfer (QC): 5 Car Transfer (QC): 5 Does the Patient Walk: Yes Walk 10 feet (QC): 5 Walk 50ft with 2 Turns (QC): 5 Walk 150 ft (QC): 5 Walking 10ft on Uneven Surface: 5 1 Step (curb) (QC): 5 PT Plan Problem List Problem List: Activity Tolerance, Functional Strength, Safety, Balance, Gait, Transfer, Bed Mobility Treatment/Plan Treatment Plan: Continue Plan of Care Treatment Plan: Bed Mobility, Education, Functional Activity Sallie, Functional Strength, Gait, Safety, Therapeutic Exercise, Transfers Treatment Duration: Sep 01, 2020 Frequency: 6 times per week Estimated Hrs Per Day: .5 hour per day Patient and/or Family Agrees t: Yes Time/GCodes Time In: 1025 Time Out: 1037 Total Billed Treatment Time: 12 Total Billed Treatment 1 visit EVModC 12 min SABINA YU PT Aug 14, 2020 11:06
--- NOTE | 2020-08-14 12:51 | Progress Note - Hospitalist ---
ELEONORA CEBALLOS MED STUDENT 08/14/20 1251: Subjective HPI/CC On Admission Date Seen by Provider: Aug 14, 2020 Time Seen by Provider: 09:00 Mr. Ltuz is an 80 year old man seen today due to ventricular tachycardia with elevated troponins. He reports having dizziness and several falls last night, the first occurring at 12:30 am, where he fell forward. He did not hit his head, only reports pain in his arms following this fall. He fell again twice around 1:20 am, but was caught each time and denies any injury with these. He describes feeling dizzy and having tunnel vision before falling, but never lost consciousness, and denies having any confusion. However, his daughter who was with him today reports he was confused for about a minute following each fall. Otherwise, his only complaint is of recent R shoulder pain he associates with strain getting out of bed and with going to [facility] to visit his , which is new but began prior to falls. He has chronic problems with that shoulder. Denies any fevers/chills, numbness, weakness, vision changes or other sensory changes, CP/SOB, palpitations, cough, abdominal pain, n/v, diarrhea, constipation, urinary retention, dysuria. Subjective/Events-last exam Mr. Lutz reports feeling improved today, he has had no recurrence of his dizziness or syncope. He has no complaints when seen this morning. Denies having any fevers/chills, CP/SOB, cough, numbness/weakness, abdominal pain, n/v. Review of Systems General: No Chills, No Night Sweats, No Fatigue HEENT: No Head Aches, No Visual Changes Pulmonary: No Dyspnea, No Cough Cardiovascular: No: Chest Pain, Palpitations, Edema, Lt Headedness Gastrointestinal: No: Nausea, Vomiting, Abdominal Pain, Diarrhea, Constipation Genitourinary: No Dysuria, No Frequency, No Retention Neurological: No: Weakness, Numbness, Confusion Focused Exam Lactate Level 08/13/20 06:00: Lactic Acid Level 2.09*H 08/13/20 08:05: Lactic Acid Level 1.88 Objective Exam Vital Signs Vital Signs Date Time Temp Pulse Resp B/P (MAP) Pulse Ox O2 Delivery O2 Flow Rate FiO2 08/14/20 11:40 36.5 08/14/20 11:00 76 42 152/91 (111) 93 Room Air 08/14/20 08:00 2.00 Capillary Refill : Less Than 3 Seconds General Appearance: No Apparent Distress, Obese HEENT: PERRL/EOMI; No Pale Conjunctivae (L), No Pale Conjunctivae (R), No Scleral Icterus (L), No Scleral Icterus (R) Neck: Normal Inspection, Non Tender, Supple Respiratory: Lungs Clear, Normal Breath Sounds, No Accessory Muscle Use, No Respiratory Distress Cardiovascular: Regular Rate, Rhythm (very distant heart sounds), No Edema, No Murmur, Normal Peripheral Pulses Gastrointestinal: Normal Bowel Sounds, No Organomegaly, Non Tender, Soft Extremity: Normal Capillary Refill, Normal Inspection, Non Tender, No Calf Tenderness, No Pedal Edema Neurologic/Psychiatric: Alert, Oriented x3, Normal Mood/Affect Skin: Normal Color, Warm/Dry Results/Procedures Lab Laboratory Tests 08/14/20 02:58 Patient resulted labs reviewed. Assessment/Plan Assessment and Plan Assess & Plan/Chief Complaint Ventricular tachycardia w/ positive troponins * Converted from vtach with amiodarone drip, now on amiodarone 400 mg po bid * Cardic catheterization, to evaluate for [place] as cause of vtach, shows heavily calcified arteries, mild to moderate nonobstructive disease, as well as hypertensive changes in the thoracic aorta, no dissection or aneurysm * Echo yesterday showed EF 55-65%, grade 1 diastolic dysfunction, moderate mitral regurgitation, mild aortic regurgitation Atrial fibrillation * on eliquis 5 mg bid Dizziness/falls * Consult PT/OT * Most likely due to Vtach * CT head negative for any acute intracranial abnormality * LE venous doppler negative or any thrombus * CXR shows borderline cardiomegaly with right basilar atelectasis and/or pneumonitis. 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 No intervention done. Started on Rocephin by Dr Van due to leukocytosis. Pt and family requesting IRU eval to nurse. When I was at bedside patient and family visibly upset as they were discussing patient's current status which is apparently quite grave. Offered them time to continue their discussions and alerted the meals on wheels driver to check on them. Supervisory-Addendum Brief Verification & Attestation Participated in pt care: history, MDM, physical Personally performed: exam, history, MDM, supervision of care Care discussed with: Medical Student Procedures: n/a Results interpretation: Verified all documentation Verification and Attestation of Medical Student E/M Service A medical student performed and documented this service in my presence. I reviewed and verified all information documented by the medical student and made modifications to such information, when appropriate. I personally performed the physical exam and medical decision making. Mandi Clemons, Aug 14, 2020,13:58 ELEONORA CEBALLOS MED STUDENT Aug 14, 2020 12:51 MANDI CLEMONS MD Aug 14, 2020 14:15
--- NOTE | 2020-08-14 13:53 | Occupational Therapy Eval ---
OT Evaluation-General/PLF Medical Diagnosis Admission Date Aug 13, 2020 at 03:30 Medical Diagnosis: ventricular tachycardia/elevated troponin Onset Date: Aug 13, 2020 Therapy Diagnosis Therapy Diagnosis: Weakness, Decreased ADL skills Height/Weight Height (Inches): 0 Weight (Pounds): 230 Precautions Precautions/Isolations: Fall Prevention, Standard Precautions Weight Bear Status Weight Bearing Restriction: Weight Bearing/Tolerated Referral Physician: Margot Referral Reason: Activity Tolerance, Self Care, Evaluation/Treatment, Strengthening/ROM Medical History Pertinent Medical History: HTN, Renal Insufficiency Additional Medical History Bilateral RCR, Hand surgery, Left TKR, Bilateral cataract surgery Current History Daughter in room and reports that pt. has been having multiple falls. She states that his feet seem to get caught up underneath him. Reviewed History: Yes Social History Home: Single Level Current Living Status: Spouse Entry Into Home: Level Entry Steps Inside Home: 2 (With railings. Family planes to make these steps into ramp situation.) ADL-Prior Level of Function SCALE: Activities may be completed with or without assistive devices. 5-Btrikxumtj-ieqsdtn completes the activity by him/herself with no assistance from a helper. 5-Set-up or Clean-up Assistance-helper sets up or cleans up; patient completes activity. Lane assists only prior to or following the activity. 4-Supervision or Touching Assistance-helper provides verbal cues and/or touching/steadying and/or contact guard assistance as patient completes activity. Assistance may be provided throughout the activity or intermittently. 3-Partial/Moderate Assistance-helper does LESS THAN HALF the effort. Lane lifts, holds or supports trunk or limbs, but provides less than half the effort. 2-Substantial/Maximal Assistance-helper does MORE THAN HALF the effort. Lane lifts or holds trunk or limbs and provides more than half the effort. 0-Porgmfiio-hjnqxt does ALL the effort. Patient does none of the effort to comp lete the activity. Or, the assistance of 2 or more helpers is required for the patient to complete the activity. If activity was not attempted, code reason: 7-Patient Refused. 9-Not Applicable-not attempted and the patient did not perform the activity before the current illness, exacerbation or injury. 10-Not Attempted due to Environmental Limitations-(lack of equipment, weather restraints, etc.). 88-Not Attempted due to Medical Conditions or Safety Concerns. ADL PLOF Comments Pt. verbalizes that until recently, he was able to bathe/dress himself. He drives "sometimes." Pt's spouse is currently ill and in hospital, and daughter reports that she really was the caregiver for this pt. prior to her illness. Pt's daughter states that her and her sister have been actively taking care of their father at home recently due to falling, and visiting their mother in the hospital. Self Care: Unknown Functional Cognition: Unknown DME/Equipment: Bath Chair, Shower DME/Equipment Comments Pt. has a 4 wheeled walker, and lift chair. OT Current Status Subjective No pain reported at this time. OT asks about pt's right shoulder, but he states that he isn't having pain in it when he isn't moving it. Otherwise it is sore if he strains it. Appearance Pt. up in reclining chair. Daughter present in room. Mental Status/Objective Patient Orientation: Person Attachments: Bojorquez Catheter, IV Current Upper Extremity ROM Pt. is able to flex bilateral shoulders to approximately 60 degrees actively. Upper Extremity Strength 2+/5 proximally 3/5 distally ADL-Treatment Eating (QC): 5 (Per pt. and daughter) On/Off Footwear (QC): 2 Toileting Hygiene (QC): 1 (Pt. has catheter. Pt. also reports that he has been constipated and can't tell if he has to have a BM.) Other Treatments Pt. up in chair. Daughter in room and reports that her mother is also in hospital. Her mother would assist pt. as needed, and since she has been ill, pt. has been falling more frequently. Daughter reports that pt. has a walker and cane, but never takes his walker anywhere with him, and refuses half the time to use his cane as well. She states that he has been unstable on his feet. Pt. has lift chair in living room at home and has been using that for sit- stand. At time of evaluation, pt. required mod/max assist for sit-stand from chair. He is able to stand with min assist at first to gain his balance at walker, but then is able to stand with CGA. Pt. stands approximately 2 minutes. Sits back down and attempts to bend over and doff slipper socks. Pt. unable to do so. Pt. and daughter educated in purpose of OT goals, and daughter reports that she would like her father to gain strength before being discharged home. All needs are met in room, and pt's feet are elevated. Education OT Patient Education: Correct positioning, Modified ADL techniques, Progress toward Goal/Update tx plan, Purpose of tx/functional activities, Reviewed precautions, Rehab process, Transfer techniques Teaching Recipient: Patient Teaching Methods: Demonstration, Discussion Response to Teaching: Verbalize Understanding, Return Demonstration OT Short Term Goals Short Term Goals Time Frame: Aug 21, 2020 Eatin Oral hygiene: 4 Toileting hygiene: 3 Shower/bathe self: 3 Upper body dressin Lower body dressin Putting on/taking off footwear: 3 OT Usp Goals Bander And Cellophaner Machine Goals Time Frame: Sep 04, 2020 Eating (QC): 6 Oral Hygiene (QC): 5 Toileting Hygiene (QC): 5 Shower/Bathe Self (QC): 4 Upper Body Dressing (QC): 5 Lower Body Dressing (QC): 4 On/Off Footwear (QC): 5 Additional Goals: 1-Demonstrate ADL Tasks, 2-Verbalize Understanding, 3- ImproveStrength/Sallie 1=Demonstrate adherence to instructed precautions during ADL tasks. 2=Patient will verbalize/demonstrate understanding of assistive devices/modifications for ADL. 3=Patient will improve strength/tolerance for activity to enable patient to perform ADL's. OT Education/Plan Problem List/Assessment Assessment: Decreased Activ Tolerance, Decreased UE Strength, Dependent Transfers, Impaired Funct Balance, Impaired I ADL's, Impaired Self-Care Skills, Restricted Funct UE ROM Discharge Recommendations Plan/Recommendations: Continue POC Therapy Discharge Recommendati: Post Acute OT Comment Equipment needs and discharge location to be determined. Treatment Plan/Plan of Care Treatment,Training & Education: Yes Patient would benefit from OT for education, treatment and training to promote independence in ADL's, mobility, safety and/or upper extremity function for ADL's. Plan of Care: ADL Retraining, Functional Mobility, UE Funct Exercise/Act Treatment Duration: Aug 28, 2020 Frequency: 5 times per week Estimated Hrs Per Day: .5 hour per day Agreement: Yes Rehab Potential: Fair Time/GCodes Start Time: 09:30 Stop Time: 10:00 Total Time Billed (hr/min): 30 Billed Treatment Time 1, EVH x 15minutes, FA x 15minutes TASH PASCUAL OT Aug 14, 2020 13:52
[2020-08-14] MEDS ORDERED: BUME0.5T5 PO (15:14)
[2020-08-14] MEDS ORDERED: HYDR200T46 PO (15:14)
[2020-08-14] MEDS ORDERED: ACET-2267 PO (15:14)
[2020-08-14] MEDS ORDERED: TMSL.4C PO (15:14)
[2020-08-14] MEDS ORDERED: LOSA50TA63 PO (15:14)
[2020-08-14] MEDS ORDERED: LATA2.5D19 OU (15:14)
[2020-08-14] MEDS ORDERED: TAMSULOSIN 0.4 MG (FLOMAX) CAP PO SCH (21:00)
[2020-08-14] MEDS ORDERED: LATANOPROST 0.005% (XALATAN) OPHTH SOLN 2.5 ML OU SCH (21:00)
[2020-08-15] MEDS ORDERED: ACETAMINOPHEN 325 MG TABLET ONE (00:33)
[2020-08-15] MEDS: ACETAMINOPHEN 325 MG TABLET PO PRN ×2 (00:50→08:05)
[2020-08-15 03:33] LABS: BASOPHILS # (AUTO) 0.1 10^3/uL (0.0-0.1); BASOPHILS % (AUTO) 1 % (0-10); EOSINOPHILS # (AUTO) 0.2 10^3/uL (0.0-0.3); EOSINOPHILS % (AUTO) 2 % (0-10); HEMATOCRIT 29 % (40-54); HEMOGLOBIN 9.4 g/dL (13.3-17.7); LYMPHOCYTES # (AUTO) 1.2 10^3/uL (1.0-4.0); LYMPHOCYTES % (AUTO) 12 % (12-44); MEAN CORPUSCULAR HEMOGLOBIN 29 pg (25-34); MEAN CORPUSCULAR HGB CONC 32 g/dL (32-36); MEAN CORPUSCULAR VOLUME 91 fL (80-99); MONOCYTES # (AUTO) 1.2 10^3/uL (0.0-1.0); MONOCYTES % (AUTO) 11 % (0-12); NEUTROPHILS # (AUTO) 7.7 10^3/uL (1.8-7.8); NEUTROPHILS % (AUTO) 75 % (42-75); PLATELET COUNT 171 10^3/uL (130-400); WHITE BLOOD COUNT 10.2 10^3/uL (4.3-11.0)
[2020-08-15 03:47] LABS: CHLORIDE 105 MMOL/L (98-107); POTASSIUM 3.7 MMOL/L (3.6-5.0); SODIUM 139 MMOL/L (135-145)
[2020-08-15 03:49] LABS: CALCIUM 7.9 MG/DL (8.5-10.1); GLUCOSE 107 MG/DL (70-105)
[2020-08-15 03:51] LABS: CARBON DIOXIDE 22 MMOL/L (21-32)
[2020-08-15 03:53] LABS: GFR ESTIMATED > 60; PHOSPHORUS 2.6 MG/DL (2.3-4.7)
[2020-08-15 03:54] LABS: BUN/CREATININE RATIO 18
[2020-08-15] MEDS: NS IV 1000 ML 1,000 ML IV SCH (04:13)
--- NOTE | 2020-08-15 04:22 | Pulmonary Progress Note ---
Subjective Time Seen by a Provider: 04:21 Subjective/Events-last exam Pt is doing better. Sepsis Event Evaluation Height, Weight, BMI Height: '0" Weight: 230lbs. oz. 104.639004cd; 29.04 BMI Method:Stated Focused Exam Lactate Level 08/13/20 06:00: Lactic Acid Level 2.09*H 08/13/20 08:05: Lactic Acid Level 1.88 Exam Exam Vital Signs Date Time Temp Pulse Resp B/P (MAP) Pulse Ox O2 Delivery O2 Flow Rate FiO2 08/15/20 01:00 73 08/15/20 00:00 87 20 150/75 (100) 93 Room Air 08/14/20 23:59 95 Room Air 08/14/20 21:00 83 20 139/95 (110) 95 Room Air 08/14/20 20:11 37.1 80 22 156/89 (111) 90 Room Air 08/14/20 20:00 95 Room Air 08/14/20 19:00 86 08/14/20 16:04 95 Room Air 08/14/20 15:51 37.2 08/14/20 14:00 75 22 151/91 (111) 93 Room Air 08/14/20 13:00 81 135/79 (97) 95 Room Air 08/14/20 12:32 75 08/14/20 12:00 83 24 160/102 (121) 92 Room Air 08/14/20 11:40 36.5 08/14/20 11:28 91 Room Air 08/14/20 11:00 76 42 152/91 (111) 93 Room Air 08/14/20 10:00 68 30 137/76 (96) 93 Room Air 08/14/20 09:00 66 36 134/68 (90) 88 Room Air 08/14/20 08:54 2 Nasal Cannula 08/14/20 08:38 92 Room Air 08/14/20 08:15 92 Room Air 08/14/20 08:00 71 33 141/84 (103) Nasal Cannula 2.00 08/14/20 07:45 36.5 08/14/20 07:00 61 27 143/72 (95) Nasal Cannula 2.00 08/14/20 06:25 65 08/14/20 06:00 46 155/98 (117) 93 Nasal Cannula 2.00 08/14/20 05:00 70 32 123/71 (91) 96 Nasal Cannula 2.00 08/14/20 04:33 37.2 08/14/20 04:30 94 Room Air I & O 08/15/20 07:00 Intake Total 1300 ml Output Total 925 ml Balance 375 ml Height & Weight Height: '0" Weight: 230lbs. oz. 104.660276xh; 29.04 BMI Method:Stated General Appearance: No Apparent Distress, Obese HEENT: PERRL/EOMI; No Pale Conjunctivae (L), No Pale Conjunctivae (R), No Scleral Icterus (L), No Scleral Icterus (R) Neck: Normal Inspection, Non Tender, Supple Respiratory: Lungs Clear, Normal Breath Sounds, No Accessory Muscle Use, No Respiratory Distress Cardiovascular: Regular Rate, Rhythm (very distant heart sounds), No Edema, No Murmur, Normal Peripheral Pulses Capillary Refill: Less Than 3 Seconds Extremity: Normal Capillary Refill, Normal Inspection, Non Tender, No Calf Tenderness, No Pedal Edema Neurologic/Psychiatric: Alert, Oriented x3, Normal Mood/Affect Skin: Normal Color, Warm/Dry Lymphatic: No Adenopathy Results Lab Laboratory Tests 08/14/20 02:58 08/15/20 03:08 Assessment/Plan Assessment/Plan Vtach upon arrival -[facility] -- off -Cardiology following -Echo yesterday showed EF 55-65%, grade 1 diastolic dysfunction, moderate mitral regurgitation, mild aortic regurgitation -negative BLE venous doppler Pulmonary edema -give Lasix x 1 -NS at 100ml/hr -- D/c Leukocytosis -CXR shows right basilar atelectasis/pneumonitis -Check Ornelas cultures -PCT elevated -Continue Rocephin Afib -Lovenox changed to Eliquis [address] Frost S/p fall -Head CT negative Acute renal failure -Creatinine improving -continue to monitor SHELBI GABRIEL DO Aug 15, 2020 04:22
[2020-08-15] MEDS ORDERED: FUROSEMIDE 40 MG/4 ML INJ (LASIX) IVP ONE (04:30)
[2020-08-15] MEDS ORDERED: IBUPROFEN TABLET 200 MG TAB PO PRN (04:30)
[2020-08-15] MEDS ORDERED: cefTRIAXone 1,000 MG IV (ROCEPHIN) VIAL ONE (04:45)
[2020-08-15] MEDS ORDERED: WATER (STERILE) FOR INJECTION 10 ML ONE (04:46)
[2020-08-15] MEDS: CATHETER FLUSH 10 ML SYR IV SCH (05:02)
[2020-08-15] MEDS: cefTRIAXone FOR IV USE 1,000 MG in WATER (STERILE) FOR INJECTION 10 ML IV SCH (05:02)
[2020-08-15] MEDS ORDERED: VENlafaxine XR 75 MG (EFFEXOR XR) CAP PO SCH (07:00)
--- NOTE | 2020-08-15 07:41 | Diagnostic Imaging Report ---
INDICATION: Right knee pain and swelling after fall. Time of exam: 6:22 AM Two views of the right knee demonstrate medial and patellofemoral compartmental degenerative change with joint space narrowing and marginal spurring. Lateral compartments maintained but there does appear to be some chondrocalcinosis of the lateral compartment. No fracture or dislocation is seen but there does appear to be a moderate sized joint effusion. IMPRESSION: Degenerative change and moderate joint effusion. Dictated by: Dictated on workstation # [id number]
[2020-08-15] MEDS ORDERED: KCL 20 MEQ TAB (K-DUR) PO ONE (08:00)
[2020-08-15] MEDS: DOCUSATE SODIUM 100 MG (COLACE) CAP PO SCH (08:05)
[2020-08-15] MEDS: APIXABAN 5 MG (ELIQUIS) TABLET PO SCH (08:06)
[2020-08-15] MEDS: AMIODARONE 200 MG (CORDARONE) TAB PO SCH (08:06)
--- NOTE | 2020-08-15 08:23 | Diagnostic Imaging Report ---
Indication: Tachycardia, elevated troponin Compared with study one day prior. Enlargement of the cardiac silhouette redemonstrated. Vascular distention and perihilar infiltrates or edema redemonstrated. Body habitus and portable technique limit detail. No obvious change from priors. Impression: There is no substantial change in enlargement of the heart, vascular congestion and probable perihilar edema versus infiltrate asymmetric greater left. Dictated by: Dictated on workstation # [id number]
--- NOTE | 2020-08-15 08:49 | Cardiology Progress Note ---
Subjective Date Seen by Provider: Aug 15, 2020 Time Seen by Provider: 08:47 Subjective/Events-last exam Patient sitting up in chair, denies any chest pain or dyspnea. Denies any further dizziness Review of Systems General: No Chills, No Night Sweats; Fatigue, Malaise; No Appetite, No Other HEENT: No Head Aches, No Visual Changes, No Eye Pain, No Ear Pain, No Dysphasi a, No Sinus Congestion, No Post Nasal Drip, No Sore Throat, No Other Pulmonary: No Dyspnea, No Cough, No Pleuritic Chest Pain, No Other Cardiovascular: No: Chest Pain, Palpitations, Orthopnea, Paroxysmal Noc. Dyspnea, Edema, Lt Headedness, Other Focused Exam Lactate Level 08/13/20 06:00: Lactic Acid Level 2.09*H 08/13/20 08:05: Lactic Acid Level 1.88 Objective-Cardiology Exam Last Set of Vital Signs Vital Signs 08/14/20 08/15/20 08/15/20 08:00 07:34 08:16 Temp 37.2 Pulse 78 Resp 20 B/P (MAP) 137/83 (101) Pulse Ox 95 O2 Delivery Room Air O2 Flow Rate 2.00 Capillary Refill : Less Than 3 Seconds I&O Intake and Output 08/15/20 00:00 Intake Total 1350 ml Output Total 1300 ml Balance 50 ml Intake Oral 1090 ml IV Total 260 ml Output Urine Total 1300 ml General: Alert, Oriented X3, Cooperative HEENT: Atraumatic, PERRLA Neck: Supple, No JVD, No Thyromegaly Lungs: Clear to Auscultation, Normal Air Movement Heart: Regular Rate, Normal S1, Normal S2, No Murmurs Abdomen: Normal Bowel Sounds, Soft, No Tenderness, No Hepatosplenomegaly, No Masses Extremities: No Clubbing, No Cyanosis, No Edema, Normal Pulses, No Tenderness/Swelling Skin: No Rashes, No Breakdown, No Significant Lesion Neuro: Normal Gait, Normal Speech, Strength at 5/5 X4 Ext, Normal Tone, Sensation Intact Psych/Mental Status: Mental Status NL, Mood NL Results Lab Laboratory Tests 08/15/20 03:08 A/P-Cardiology Admission Diagnosis Wide-complex tachycardia Dizziness and lightheadedness Hypertension Assessment/Plan Wide-complex tachycardia, multiple episodes, frequent PVCs, symptomatic. most probably paroxysmal atrial fibrillation with aberrant conduction, started on amiodarone, Eliquis. Telemetry showing SR with PVCs, continue to monitor Mild elevation in troponin level, cardiac catheterization was carried out on August 13, 2020 showing heavily calcified coronary system with mild to moderate disease nonobstructive disease Dizziness and lightheadedness, near syncope secondary to tachycardia. Feeling better at this time Hypertension, controlled, continue to monitor blood pressure Echocardiogram showed normal LV size and function, EF 60%, moderate mitral regurgitation, mild tricuspid regurgitation. Left atrial dilatation 5.1 cm. Generalized weakness, orthostatic dizziness and lightheadedness, unsteady gait, starting PT OT, probable transfer to rehab today Patient was seen and evaluated with Petra, examination performed, management plan was discussed, agree with the current scribed note, I made few changes to the note using Italic font Patient was comfortable, no new changes Okay for transfer to telemetry PETRA GOMEZ Aug 15, 2020 08:49 TERESA HU MD Aug 15, 2020 16:12
[2020-08-15] MEDS ORDERED: BUMETANIDE 1 MG (BUMEX) TAB PO SCH (09:00)
[2020-08-15] MEDS ORDERED: NON-FORMULARY MEDICATION 1 EA EA (Bumetanide 0.5 MG) PO SCH (09:00)
[2020-08-15] MEDS ORDERED: NON-FORMULARY MEDICATION 1 EA EA (Venlafaxine HCl (Venlafaxine HCl ER) 300 MG) PO SCH (09:00)
--- NOTE | 2020-08-15 10:29 | Physician Query Clarification ---
Physician Query-General Query to Physician: The medical record reflects the following clinical evidence: Clinical Indicators: CXR shows right basilar atelectasis/pneumonitis, procalcitonin elevated, WBC 16.6 Risk Factor(s): Advanced age, Pulmonary edema, Atelectasis Treatment: 1 g Ceftriaxone Daily, Daily Chest Xray, Pulmonary Consult 1. Pneumonia, Present on admission in the setting of pulmonary edema and atelectasis being treated with Ceftriaxone 2. Other explanation of clinical findings 3. Unable to determine (no explanation for clinical findings) Please clarify and document your clinical opinion in the progress notes and discharge summary including the definitive and/or presumptive diagnosis, (suspected or probable), related to the above clinical findings. Please include clinical findings supporting your diagnosis. Anika Williamson [phone] [email or web address] PHYSICIAN RESPONSE: Based on the clinical findings in the record, please respond to the query above on this document as an addendum. Physician Response: Physician Response 2. Patient just had atelectasis. If you have questions please contact: Basket Weaver: Ext: Thank you for your time and cooperation. Clinical Bellman/Basket Weaver This is a permanent part of the medical record ANIKA WILLIAMSON Aug 15, 2020 10:29 MANDI GUPTA MD Aug 15, 2020 15:20
--- NOTE | 2020-08-15 11:11 | Physician Query Clarification ---
Physician Query-General Query to Physician: The medical record reflects the following clinical scenario: The patient, in the setting of History/Risk factors Advance age, [place] Clinical Findings: Admission Cr 1.53 improved to 1.00, Treatment: 1L NS Fluid bolus, Daily lab monitoring, I and O Question: Do you agree with the impression of Acute Kidney Injury per Dr. Mary Van? If you agree, please document in Progress Notes or Discharge Summary. 1. Yes; will document Acute Kidney Injury Present on admission in the Progress Notes 2. No; will continue current documentation in the Progress Notes 3. Other; will document explanation of clinical findings 4. Clinically undetermined; no explanation for clinical findings Please clarify and document your clinical opinion in the Progress Notes and Discharge Summary including the definitive and/or presumptive diagnosis, (suspected or probable), related to the above clinical findings. Please include clinical findings supporting your diagnosis. In responding to this query, please exercise your independent professional judgment. The purpose of this communication is to more accurately reflect the complexity of your patients condition. The fact that a question is asked does not imply that any particular answer is desired or expected. Please remember a lack of response to the above will prompt a phone page by CDI/coding staff Thank you for timely response to this clarification. Anika Hoskins [phone] PHYSICIAN RESPONSE: Based on the clinical findings in the record, please respond to the query above on this document as an addendum. Physician Response: Physician Response 2 If you have questions please contact: Monogram And Letter Paster: Ext: Thank you for your time and cooperation. Clinical Environmental Technician/Monogram And Letter Paster This is a permanent part of the medical record ANIKA HOSKINS Aug 15, 2020 11:11 MANDI GUPTA MD Aug 15, 2020 15:22
--- NOTE | 2020-08-15 11:25 | Discharge Summary ---
ELEONORA CEBALLOS MED STUDENT 08/15/20 1125: Diagnosis/Chief Complaint Date of Admission Aug 13, 2020 at 03:30 Date of Discharge Discharge Date: Aug 15, 2020 Admission Diagnosis V-tach Primary Care Alvaro Lebron MD Discharge Diagnosis (1) Ventricular tachycardia Status: Acute (2) Leg edema Status: Acute (3) Elevated troponin Status: Acute (4) Frequent falls Status: Acute (5) Renal insufficiency Status: Acute (6) Lupus Status: Chronic (7) Hypertension Status: Acute Discharge Summary Discharge Physical Exam Allergies: Coded Allergies: No Known Drug Allergies (Unverified , 01/29/19) Vitals & I&Os Vital Signs Date Time Temp Pulse Resp B/P (MAP) Pulse Ox O2 Delivery O2 Flow Rate FiO2 08/15/20 08:16 95 Room Air 08/15/20 07:34 37.2 78 20 137/83 (101) 08/14/20 08:00 2.00 General Appearance: No Apparent Distress, Obese HEENT: PERRL/EOMI; No Pale Conjunctivae (L), No Pale Conjunctivae (R), No Scleral Icterus (L), No Scleral Icterus (R) Respiratory: Chest Non Tender, Lungs Clear, Normal Breath Sounds, No Accessory Muscle Use, No Respiratory Distress Cardiovascular: No Edema, No Murmur, Normal Peripheral Pulses, Irregularly Irregular Gastrointestinal: Normal Bowel Sounds, No Organomegaly, Non Tender, Soft Extremity: Normal Capillary Refill, Normal Range of Motion, Non Tender, No Calf Tenderness, No Pedal Edema Skin: Normal Color, Warm/Dry Neurologic/Psychiatric: Alert, Oriented x3, Normal Mood/Affect Hospital Course Mr. Lutz is an 80 year old man admitted on 08/13 due to ventricular tachycardia with elevated troponins. In the print line operator of 08/13 he had several episodes of dizziness and falls, and was brought to [facility] ED where he was found to be in ventricular tachycardia. He was given an amiodarone bolus and started on an amiodarone drip, with resolution of v-tach. He had a CT head which was negative for any acute intracranial abnormality and a LE venous doppler negative for any thrombus. Left heart cath also done on 08/13 which showed hypertensive changes to the aorta and mild to moderate nonobstructive disease. On 08/14 he was again note dto have tachycardia, cardiology identified as paroxysmal atrial fibrillation w ith aberrant conduction, and his amiodarone was switched to PO. He was also started on rocephin due to leukocytosis. On 08/15 his CXR was indicative of pulmonary edema, so his IV fluids were stopped and he was placed on lasix. He has had no recurrence of v-tach or dizziness/falls since his admission, and will be discharged to inpatient rehab today. Labs (last 24 hrs) Laboratory Tests 08/15/20 03:08: White Blood Count 10.2, Red Blood Count 3.22L, Hemoglobin 9.4L, Hematocrit 29L, Mean Corpuscular Volume 91, Mean Corpuscular Hemoglobin 29, Mean Corpuscular Hemoglobin Concent 32, Red Cell Distribution Width 14.3, Platelet Count 171, Mean Platelet Volume 12.0, Immature Granulocyte % (Auto) 0, Neutrophils (%) (Auto) 75, Lymphocytes (%) (Auto) 12, Monocytes (%) (Auto) 11, Eosinophils (%) (Auto) 2, Basophils (%) (Auto) 1, Neutrophils # (Auto) 7.7, Lymphocytes # (Auto) 1.2, Monocytes # (Auto) 1.2H, Eosinophils # (Auto) 0.2, Basophils # (Auto) 0.1, Immature Granulocyte # (Auto) 0.0, Sodium Level 139, Potassium Level 3.7, Chloride Level 105, Carbon Dioxide Level 22, Anion Gap 12, Blood Urea Nitrogen 18, Creatinine 1.00, Estimat Glomerular Filtration Rate > 60, BUN/Creatinine Ratio 18, Glucose Level 107H, Calcium Level 7.9L, Phosphorus Level 2.6, Magnes ium Level 2.0 Microbiology 08/13/20 Blood Culture - Preliminary, Resulted No growth 08/13/20 MRSA Screen - Final, Complete MRSA not isolated Patient resulted labs reviewed. Discharge Home Medications: Active Scripts Active Reported Tylenol Extra Strength (Acetaminophen) 500 Mg Tablet 500-1,000 Mg PO Q8H PRN Xalatan (Latanoprost) 2.5 Ml Drops 1 Drop OU HS Bumetanide 0.5 Mg Tablet 0.5 Mg PO DAILY Hydroxychloroquine Sulfate 200 Mg Tablet 200 Mg PO DAILY Flomax (Tamsulosin HCl) 0.4 Mg Cap 0.4 Mg PO HS Losartan Potassium 50 Mg Tablet 50 Mg PO DAILY Venlafaxine HCl ER (Venlafaxine HCl) 150 Mg Cap.er.24h 300 Mg PO DAILY TAKES 2 (150MG) CAPS Instructions to patient/family Please see electronic discharge instructions given to patient. MANDI CLEMONS MD 08/17/20 1327: Discharge Summary Procedures/Consulations Cardiology- Dr Margot Munoz- Dr Van Discharge Physical Exam Allergies: Coded Allergies: No Known Drug Allergies (Unverified , 01/29/19) Discussion & Recommendations Discharge Planning: >30 minutes discharge planning Supervisory-Addendum Brief Verification & Attestation Participated in pt care: history, MDM, physical Personally performed: exam, history, MDM, supervision of care Care discussed with: Medical Student Procedures: n/a Results interpretation: Verified all documentation Verification and Attestation of Medical Student E/M Service A medical student performed and documented this service in my presence. I reviewed and verified all information documented by the medical student and made modifications to such information, when appropriate. I personally performed the physical exam and medical decision making. Mandi Clemons, Aug 17, 2020,13:27 ELEONORA CEBALLOS MED STUDENT Aug 15, 2020 11:25 MANDI CLEMONS MD Aug 17, 2020 13:27
--- NOTE | 2020-08-15 11:59 | Consultation - Ortho ---
Consult - Ortho Subjective Date of Exam 08/15/20 Chief Complaint Right knee pain and swelling HPI/Events since last exam Mr. Lutz is an 80-year-old white male has been having problems with his right knee for years. He has had multiple injections in the past by L[facility] Morales at Dr. Morrison's office. He thinks last injections were 6 to 7 months ago. He was told if the injections did not help that they may try what sounds like viscosupplementation injections. He does not think he has ever had those type of injections.He states he falls frequently and that is probably why his knee is bothering him now. He states yesterday he walked pretty good but today his knee is bothering him more. He has had a left total knee arthroplasty by Dr. Alvarez in [place] approximately 15 years ago. He states the Dr. Morrison has done surgery on both of his shouldersIn the past Medical, Surgical History Reviewed and no additions or changes Social History Reviewed and no additions or changes Family History Reviewed and no additions or changes Review of Systems Reviewed and no additions or changes Allergies: Coded Allergies: No Known Drug Allergies (Unverified , 01/29/19) Home Meds Reported Medications Acetaminophen (Tylenol Extra Strength) 500 Mg Tablet, 500-1000 MG PO Q8H PRN for PAIN-MILD (1-4), TAB 08/14/20 Latanoprost (Xalatan) 2.5 Ml Drops, 1 DROP OU HS, DROPS 08/14/20 Bumetanide (Bumetanide) 0.5 Mg Tablet, 0.5 MG PO DAILY, TAB 08/14/20 Hydroxychloroquine Sulfate (Hydroxychloroquine Sulfate) 200 Mg Tablet, 200 MG PO DAILY, TAB 08/14/20 Tamsulosin HCl (Flomax) 0.4 Mg Cap, 0.4 MG PO HS, CAP 08/14/20 Losartan Potassium (Losartan Potassium) 50 Mg Tablet, 50 MG PO DAILY, TAB 08/14/20 Venlafaxine HCl (Venlafaxine HCl ER) 150 Mg Cap.er.24h, 300 MG PO DAILY, CAP TAKES 2 (150MG) CAPS 01/29/19 Discontinued Reported Medications Ibuprofen (Ibuprofen) 600 Mg Tablet, 600 MG PO Q6H PRN for PAIN-MILD, TAB 01/29/19 Losartan Potassium (Losartan Potassium) 100 Mg Tablet, 100 MG PO DAILY, TAB 01/29/19 Discontinued Scripts Azithromycin (Azithromycin) 250 Mg Tablet, 250 MG PO UD, #6 TAB TAKE 2 TABLETS ON DAY ONE THEN TAKE 1 TABLET DAILY FOR FOUR MORE DAYS Prov:YENNI FLOYD MD 01/29/19 Objective Exam Constitutional: [] HEENT: [] Neck: [] Cardiovascular: [] Respiratory: [] Gastrointestinal: [] Genitourinary: [] Skin: [] Back/Spine: [] Extremities: [Right lower extremityno pain with range of motion of the right hip. Negative straight leg raise. He lacks about 5 degrees of full extension the right knee and I can flex him up to about 75 degrees with increasing pain. He has medial and lateral joint line pain as well as patellofemoral pain. No instability on varus or valgus stress. Fabiano's is negative. Anterior and posterior drawer is negative at 70. Unable to perform Bienvenido's or pivot shift. No calf tenderness and negative Homans. No pain with range of motion of the ankle. No skin changes are noted.] Neurologic: [] Psychiatric: [] Hematologic/lymphatic/immunologic: [] Vital Signs Vital Signs Date Time Temp Pulse Resp B/P (MAP) Pulse Ox O2 Delivery O2 Flow Rate FiO2 08/15/20 08:16 95 Room Air 08/15/20 07:34 37.2 78 20 137/83 (101) 95 Room Air 08/15/20 06:21 80 08/15/20 04:00 80 17 139/99 (112) 94 Room Air 08/15/20 01:00 73 08/15/20 00:00 87 20 150/75 (100) 93 Room Air 08/14/20 23:59 95 Room Air 08/14/20 21:00 83 20 139/95 (110) 95 Room Air 08/14/20 20:11 37.1 80 22 156/89 (111) 90 Room Air 08/14/20 20:00 95 Room Air 08/14/20 19:00 86 08/14/20 16:04 95 Room Air 08/14/20 15:51 37.2 08/14/20 14:00 75 22 151/91 (111) 93 Room Air 08/14/20 13:00 81 135/79 (97) 95 Room Air 08/14/20 12:32 75 08/14/20 12:00 83 24 160/102 (121) 92 Room Air I & O 08/15/20 07:00 Intake Total 1400 ml Output Total 1425 ml Balance -25 ml Lab Results Laboratory Tests 08/15/20 03:08: White Blood Count 10.2, Red Blood Count 3.22L, Hemoglobin 9.4L, Hematocrit 29L, Mean Corpuscular Volume 91, Mean Corpuscular Hemoglobin 29, Mean Corpuscular Hemoglobin Concent 32, Red Cell Distribution Width 14.3, Platelet Count 171, Mean Platelet Volume 12.0, Immature Granulocyte % (Auto) 0, Neutrophils (%) (Auto) 75, Lymphocytes (%) (Auto) 12, Monocytes (%) (Auto) 11, Eosinophils (%) (Auto) 2, Basophils (%) (Auto) 1, Neutrophils # (Auto) 7.7, Lymphocytes # (Auto) 1.2, Monocytes # (Auto) 1.2H, Eosinophils # (Auto) 0.2, Basophils # (Auto) 0.1, Immature Granulocyte # (Auto) 0.0, Sodium Level 139, Potassium Level 3.7, Chloride Level 105, Carbon Dioxide Level 22, Anion Gap 12, Blood Urea Nitrogen 18, Creatinine 1.00, Estimat Glomerular Filtration Rate > 60, BUN/Creatinine Ratio 18, Glucose Level 107H, Calcium Level 7.9L, Phosphorus Level 2.6, Magnesium Level 2.0 Microbiology 08/13/20 Blood Culture - Preliminary, Resulted No growth 08/13/20 MRSA Screen - Final, Complete MRSA not isolated Imaging X-rays from 08/15 shows significant joint space narrowing medially with femoral and tibial spurring. The lateral compartment is fairly well-maintained with chondrocalcinosis and femoral and tibial spurring. These are nonweightbearing views. Patellofemoral joint on the lateral view shows significant spurring. No patellofemoral views were obtained. No evidence of fracture. Assessment and Plan Assessment Pain and swelling right knee secondary to osteoarthritis Problem List Osteoarthritis right knee Plan The above was discussed with the patient.He has a longstanding history of osteoarthritis of the right knee. He has had a previous total knee on the left. He thinks his last injection was done by Lb Morales 6 to 7 months ago.I told him I could reinject his knee but considering he is being treated for atelectasis/Pneumonitis with Rocephin, I would probably hold off for now until may be next week to let him fully recover from this.I explained to him that cortisone injections can decrease the body's ability toFight off infections. If he is doing well next week he can go ahead and have a knee injection. He is fine with that.In the meantime continue Ice. He can ambulate with a walker weightbearing as tolerated. Final Diagonsis Osteoarthritis right knee Level of the visit: Level 3 MILEY JOHNSON MD Aug 15, 2020 11:59
[2020-08-15] MEDS ORDERED: HYDROXYCHLOROQUINE 200 MG (PLAQUENIL) TAB PO SCH (12:00)
--- NOTE | 2020-08-17 08:56 | Physician Query Clarification ---
PQ-CHF Specificity Admission Date: Aug 13, 2020 at 03:30 Discharge Date: Aug 15, 2020 at 11:00 Dr. Frost, The medical record reflects the following clinical scenario: History/Risk Factors: V Tach, PAF, HTN w/CHF Clinical Findings: BNP 106.7, Procalcitonin 0.16, EF 55-65 grade 1 diastolic dysfunction Treatment: Bumex Question: Can you further specify the acuity &/or type of CHF per the clinical indicators above? Please document a response in the Progress Notes or Discharge Summary. 1. Acuity: Acute, Chronic or Acute on Chronic 2. Type: Systolic, Diastolic or Systolic & Diastolic 3. Unspecified: CHF cannot be further specified regarding type or acuity 4. Other, with explanation of clinical findings 5. Clinically undetermined, no explanation for clinical findings PHYSICIAN RESPONSE Acuity: Acute Type: Diastolic Please remember a lack of response to the above will prompt a phone page by CDI/Coding staff. In responding to this query, please exercise your independent professional judgment. The purpose of this communication is to more accurately reflect the complexity of your patients condition. The fact that a question is asked does not imply that any particular answer is desired or expected. Thank you for your timely response to this clarification. Requestors name: [email or web address] THIS PHYSICIAN QUERY FORM IS A PERMANENT PART OF THE MEDICAL RECORD KASSIDY PEREIRA Aug 17, 2020 08:56 TERESA FROST MD Aug 17, 2020 15:46
--- NOTE | 2020-08-17 08:59 | Physician Query Clarification ---
PQ-Further Specificity Admission/Discharge Admission Date: Aug 13, 2020 at 03:30 Discharge Date: Aug 15, 2020 at 11:00 Dr. Frost, The medical record reflects the following clinical scenario: History/Risk Factors: V Tach, elevated troponin, PAF, CAD, HTN w/CHF Clinical Findings: Troponin 0.037 Treatment: Aminodarone Question: Can you further specify the elevated troponin per the clinical indicators above? Please document a response in the Progress Notes or Discharge Summary. 1. TN type 2 2. elevated troponin not further specified 3. Other, with explanation of the clinical findings. 4. Clinically undetermined, no explanation for the clinical findings. PHYSICIAN RESPONSE Can you specify per above: 1 Please remember a lack of response to the above will prompt a phone page by CDI/Coding staff. In responding to this query, please exercise your independent professional judgment. The purpose of this communication is to more accurately reflect the complexity of your patients condition. The fact that a question is asked does not imply that any particular answer is desired or expected. Thank you for your timely response to this clarification. Requestors name: [email or web address] THIS PHYSICIAN QUERY FORM IS A PERMANENT PART OF THE MEDICAL RECORD KASSIDY PEREIRA Aug 17, 2020 08:59 TERESA FROST MD Aug 17, 2020 15:47
== END 2020-08-15 11:00 | DRG 280 ==
LOC: EDUNIT# 02:12 → ER 02:14 → ICU 03:30 → CSD 08-14 17:26
PROVIDERS: ADMIT Internal Medicine; ATTEND Internal Medicine
PROC: B2111ZZ Fluoroscopy of Multiple Coronary Arteries using Low Osmolar Contrast (ICD-10-PCS; principal; 2020-08-13)
PROC: B3101ZZ Fluoroscopy of Thoracic Aorta using Low Osmolar Contrast (ICD-10-PCS; 2020-08-13)
DX: I47.2 Ventricular tachycardia (principal); I50.31 Acute diastolic (congestive) heart failure; I21.A1 Myocardial infarction type 2; J98.11 Atelectasis; I48.0 Paroxysmal atrial fibrillation; I25.10 Atherosclerotic heart disease of native coronary artery without angina pectoris; Z91.81 History of falling; N28.9 Disorder of kidney and ureter, unspecified; I11.0 Hypertensive heart disease with heart failure; R73.9 Hyperglycemia, unspecified; K21.9 Gastro-esophageal reflux disease without esophagitis; E78.00 Pure hypercholesterolemia, unspecified; I49.3 Ventricular premature depolarization; I08.1 Rheumatic disorders of both mitral and tricuspid valves; M17.11 Unilateral primary osteoarthritis, right knee; L93.0 Discoid lupus erythematosus; F41.9 Anxiety disorder, unspecified; F32.9 Major depressive disorder, single episode, unspecified; M25.511 Pain in right shoulder; H40.9 Unspecified glaucoma; Z87.01 Personal history of pneumonia (recurrent); Z87.891 Personal history of nicotine dependence; Z96.652 Presence of left artificial knee joint; Z79.2 Long term (current) use of antibiotics
CPT/HCPCS: 36221; 36415; 51702; 70450; 71045; 73030; 73560; 80048; 80053; 80061; 81000; 82550; 82553; 82962; 83605; 83735; 83874; 83880; 84100; 84145; 84484; 85007; 85025; 85027; 85379; 85610; 85730; 87040; 87081; 93005; 93041; 93306; 93454; 93970; 96361; 96365; 96366; 96372

== ENCOUNTER 2020-08-15 10:45 | Inpatient (IN) | payer MEDICARE ==
[~2020-08-15] VITALS: Ht 177 cm; Wt 106.8 kg
[~2020-08-15 10:45] MED LIST changes: +ACET-2267 PO; +ACETAMINOPHEN 325 MG TABLET PO PRN; +ALPRAZolam 0.25 MG (XANAX) TAB PO PRN; +BISACODYL 10 MG SUPP (DULCOLAX) PR PRN; +BUME0.5T5 PO; +CALCIUM CARBONATE 500 MG (TUMS) TAB.CHEW PO PRN; +DOCUSATE SODIUM 100 MG (COLACE) CAP PO PRN; +FLEET ENEMA ADULT 1 EA BTL PR PRN; +HYDR200T46 PO; +LACTULOSE SYRUP 10GM/15ML (ENULOSE) 30ML UDC PO PRN; +LATA2.5D19 OU; +LOPERAMIDE 2 MG (IMODIUM) TABLET PO PRN; +LOSA50TA63 PO; +ONDANSETRON 4 MG (ZOFRAN) ORAL DISSOLVE TAB PO PRN; +TMSL.4C PO; +diphenhydrAMINE 25 MG TAB (BENADRYL) PO PRN; +guaiFENesin/CODEINE (ROBITUSSIN AC) 10ML UDC PO PRN
[2020-08-15] MEDS: SENNA W/DOCUSATE (SENOKOT S) TABLET PO SCH ×2 (11:52→20:13)
[2020-08-15] MEDS: DOCUSATE SODIUM 100 MG (COLACE) CAP PO SCH ×3 (11:52→20:42)
[2020-08-15] MEDS: polyethylene glycoL POWDER 17 GM (MIRALAX) PACK PO SCH ×2 (11:52→20:13)
--- NOTE | 2020-08-15 12:01 | Physical Therapy Evaluation ---
PT Evaluation-General Medical Diagnosis Admission Date Aug 15, 2020 at 10:45 Medical Diagnosis: Ventricular Tachycardia Onset Date: Aug 13, 2020 Therapy Diagnosis Therapy Diagnosis: Debility, weakness Height/Weight Height (Inches): 0 Weight (Pounds): 230 Precautions Precautions/Isolations: Fall Prevention, Standard Precautions Referral Physician: Yari Self DO Reason for Referral: Evaluation/Treatment Medical History Pertinent Medical History: HTN, Renal Insufficiency Reviewed History: Yes Social History Home: Single Level Current Living Status: Significant Other Entry Into Home: Level Entry PT Steps Inside Home: 2 (with railing) Prior Prior Level of Function SCALE: Activities may be completed with or without assistive devices. 5-Ctedgdxtxi-hspmjhv completes the activity by him/herself with no assistance from a helper. 5-Set-up or Clean-up Assistance-helper sets up or cleans up; patient completes activity. [place] assists only prior to or following the activity. 4-Supervision or Touching Assistance-helper provides verbal cues and/or touching/steadying and/or contact guard assistance as patient completes activity. Assistance may be provided throughout the activity or intermittently. 3-Partial/Moderate Assistance-helper does LESS THAN HALF the effort. [place] lifts, holds or supports trunk or limbs, but provides less than half the effort. 2-Substantial/Maximal Assistance-helper does MORE THAN HALF the effort. [place] lifts or holds trunk or limbs and provides more than half the effort. 3-Fajfjdxzp-phyuqg does ALL the effort. Patient does none of the effort to complete the activity. Or, the assistance of 2 or more helpers is required for the patient to complete the activity. If activity was not attempted, code reason: 7-Patient Refused. 9-Not Applicable-not attempted and the patient did not perform the activity before the current illness, exacerbation or injury. 10-Not Attempted due to Environmental Limitations-(lack of equipment, weather restraints, etc.). 88-Not Attempted due to Medical Conditions or Safety Concerns. Bed Mobility: 6 Transfers (B,C,W/C): 6 Gait: 6 Stairs: 6 Indoor Mobility (Ambulation): Independent Stairs: Independent Prior Devices Use: None Patient was independent with ambulation before, but has hx of several falls. Patient lives with spouse who is primary caregiver. Daughter reports patient has 2 stairs within the home that patient navigates and puts 100% of body weight t hrough UE's when descending, a major concern for her daughter. Patient has 4WW and cane at home, but refuses to use any assistive device consistently. Bathroom is w/c accessible. PT Evaluation-Current Subjective Patient seated upright in chair pre tx. Patient reports 4/10 pain in knee, that increases to 6/10 when bearing weight. Patient consents to tx . Pt/Family Goals Return home with PLOF Objective Patient Orientation: Person, Place, Time, Normal For Age ROM/Strength ROM Lower Extremities WFL Strength Lower Extremities L LE: (Hip flexion 4-/5) WNL otherwise, R LE: (hip/knee not tested secondary to booker complaints, DF WNL) Integumentary/Posture Posture moderate kyphosis Sensory Vision: Functional Hearing: Functional Sensation Right Lower Extremit: Intact Sensation Left Lower Extremity: Intact Transfers Roll Left & Right (QC): 3 (mod) Sit to Lying (QC): 3 (min) Lying to Sitting/Side of Bed(Q: 3 (min) Sit to Stand (QC): 3 (mod) Chair/Xwp-tk-Ghmjt Xfer(QC): 3 (mod) Toilet Transfer (QC): 3 (mod) Car Transfer (QC): 3 (mod) Mod assist with most activity secondary to subjective reports of 4-6/10 R knee pain. Patient needs cues for hand placement and safety during transfers, often will not turn completely to sit or "plops" down when sitting. Gait Does the Patient Walk?: Yes Mode of Locomotion: Walk Walk 10 feet (QC): 88 Walk 50 ft with 2 Turns(QC): 88 Walk 150 ft (QC): 88 Walking 10ft/uneven surface-QC: 88 Distance: 5' Gait Assistive Device: FWW Comments/Gait Description Patient demonstrates antalgic gait pattern, uses small step lengths, and requires Mod Assist. Patient reports 6/10 pain in R knee when he bears weight. Wheelchair Training Does the Pt Use a Wheelchair?: Yes Distance: 50' Wheel 50 ft with 2 turns (QC): 4 Wheel 150 ft (QC): 88 Type of Wheelchair: Manual CGA. Patient needed some assistance with turning w/c. Was able to maneuver chair at a very slow pace using UE's. Stairs 1 Step (curb) (QC): 88 4 Steps (QC): 88 12 Steps (QC): 88 Balance Sitting Static: Good Sitting Dynamic: Good Standing Static: Poor Standing Dynamic: Poor Picking up an Object (QC): 88 Treatment Co-treated with OT for 25 minutes due to patient decreased balance, fall risk, knee pain, and decreased overall functional mobility. PT focused on transfers, and functional bed mobility, while OT focused on w/c manipulation with UE's and energy conservation. After OT co-treated, patient performed seated and supine ther ex, including ankle pumps, quad sets, hip raises, LAQs, and heel slides on bilateral LE's as tolerated seconary to R knee pain complaints, 15 reps each. Assessment/Needs Patient will benefit from interventions to improve functional endurance, transfer techniques, and gait training with assistive device to promote optimal patient safety with return home. Rehab Potential: Fair PT Short Term Goals Short Term Goals Time Frame: Aug 22, 2020 Roll Left & Right: 4 (SBA) Sit to lyin (SBA) Lying to sitting on side of be: 4 (SBA) Sit to stand: 4 (SBA) Chair/vyf-ej-ymzld transfer: 4 (SBA) Toilet transfer: 4 (SBA) Car transfer: 4 (SBA) Walk 10 feet: 4 (CGA) Walk 50 feet with two turns: 4 (CGA) Walk 150 feet: 4 (CGA) Walking 10ft on uneven surface: 3 (min) 1 step (curb): 3 (min) Does pt use a wc or scooter: Yes Wheel 50ft w/2 turns: 4 (SBA) Wheel 150 feet: 4 (SBA) Type: Manual PT Field Applications Specialist Goals Field Applications Specialist Goals PT Field Applications Specialist Goals Time Frame: Sep 05, 2020 Roll Left & Right (QC): 5 Sit to Lying (QC): 5 Lying-Sitting on Side/Bed(QC): 5 Sit to Stand (QC): 5 Chair/Nwe-ai-Tpnzx Xfer(QC): 5 Toilet Transfer (QC): 5 Car Transfer (QC): 5 Does the Patient Walk: Yes Walk 10 feet (QC): 5 Walk 50ft with 2 Turns (QC): 5 Walk 150 ft (QC): 5 Walking 10ft on Uneven Surface: 5 1 Step (curb) (QC): 5 4 Steps (QC): 5 12 Steps (QC): 9 Picking up an Object (QC): 5 Does the Pt use WC or Scooter?: No Wheel 50 feet with 2 turns (QC: 5 Type: Manual Wheel 150 feet: 5 Type: Manual PT Plan Problem List Problem List: Activity Tolerance, Functional Strength, Safety, Balance, Gait, Transfer, Bed Mobility, ROM Treatment/Plan Treatment Plan: Continue Plan of Care Treatment Plan: Bed Mobility, Education, Functional Activity Sallie, Functional Strength, Group Therapy, Gait, Safety, Therapeutic Exercise, Transfers Treatment Duration: Sep 05, 2020 Frequency: At least 5 of 7 days/Wk (IRF) Estimated Hrs Per Day: 1.5 hours per day Patient and/or Family Agrees t: Yes Safety Risks/Education Patient Education: Gait Training, Transfer Techniques, Correct Positioning, W/C Management, Safety Issues Teaching Recipient: Patient Teaching Methods: Demonstration, Discussion Response to Teaching: Verbalize Understanding, Return Demonstration Discharge Recommendations Plan Plan to improve patient functional strength and endurance by improving bed mobility, gait, transfers to promote optimal safety for patient with return home. Time/GCodes Time In: 1045 Time Out: 1200 Total Billed Treatment Time: 65 Total Billed Treatment 1 visit: EVM: 10' EX x1: 20' FA x2: 35' PT eval from [id number], OT eval from [id number], co-treat from [id number], PT tx from [id number] JIMENEZ HOBSON PT Aug 15, 2020 12:01
[2020-08-15 12:06] VITALS: BP 142/67
[2020-08-15] MEDS ORDERED: cefTRIAXone FOR IV USE 1,000 MG in WATER (STERILE) FOR INJECTION 10 ML IV SCH (12:15)
[2020-08-15] MEDS ORDERED: PATIENT MAY USE OWN MEDS, ALL PO SCH (12:15)
[2020-08-15] MEDS ORDERED: ACETAMINOPHEN 325 MG TABLET PO PRN (12:15)
--- NOTE | 2020-08-15 12:17 | PM&R Post Admission Assessment ---
PM&R HP Date of Visit: Aug 15, 2020 Time of Visit: 12:20 History of Present Illness CC: Recovery from cardiac dysfunction with multiple recent falls HPI: This is an 80yoWM clinic Pt of Dr. Lebron who presented to inpatient rehab in need of strengthening after he was admitted for what was assumed to be a v entricular tachycardia episode with elevated troponin but upon more close assessment by cardiology, he was found to have AFIB. He was placed on Eliquis and is in need of strengthening with PT and OT. His is in the hospital in ICU because of pneumonia. He reports right knee pain and has had multiple falls at home, and Dr. oDe will come by and see him. Knee X-rays have been o btained. He has had knee injections before. He will finish up on his antibiotic and his WBC is much improved from 10 to 12. Med-surg summary: CC: Dizzy with frequent falls and h/o HTN, hypercholesterolemia, discoid lupus, degenerative joint disease and rheumatic fever Mr. Lutz is an 80yoWM clinic pt of Dr. Lebron with a history of HTN, hypercholesterolemia, degenerative joint disease, and discoid lupus who presented to [facility] ED via EMS on 08/13/20 after about 24 hours of dizziness causing multiple falls. He was found to be in VTach at a rate of 118 and given an Amiodarone bolus and drip which resolved rhythm. Due to his fall, the R shoulder was x-rayed with no acute abnormalities and a head CT was done which was negative. He had a mildly elevated troponin (0.037), creatinine of 1.53, and b/l leg edema which warranted b/l venous doppler U/S demonstrating no evidence of DVT. He was admitted for a cardiology workup which consisted of an echo (normal EF at 60%, L atrial dilatation, moderate mitral regurgitation and mild tricuspid regurgitation) and a heart cath that showed heavily calcified arteries but no significant obstruction. Following workup cardiology believes Mr. Lutz suffers from wide-complex tachycardia with frequent and symptomatic PVCs and an underlying paroxysmal atrial fibrillation with aberrant conduction. He is stable and will be maintained on Amiodarone and Eliquis. During his stay he also received 1g of ceftriaxone [leukocytosis (16.6) and CXR showing R basilar atelectasis/pneumonitis], as well as a dose of Lasix after subsequent imaging showed pulmonary edema. Patient has a history of left total knee replacement and regular right knee injections, so Dr. Doe was consulted regarding R knee pain and plans to do steroid injection next week after pneumonitis is resolved. Patient will have close follow-up and be transferred to rehab today (08/15/20) with the goal of overall strengthening and balance improvement. He is familiar with [facility] rehab as he recently visited his who was a patient there. Unfortunately, she was transferred to [facility] ICU after complications arose and this is where she currently remains with guarded prognosis. Patient's family is closely involved and supportive, frequently at bedside for both parents. JAVAD GONZALEZ MED STUDENT Aug 15, 2020 12:23 Past Tyvyysi-Ylaoqa-Uabcaw Hx Past Med/Social Hx: Reviewed Nursing Past Med/Soc Hx, Reviewed and Corrections made Patient Social History Marrital Status: Employed/Student: retired Alcohol Use: Denies Use Recreational Drug Use: No Drug of Choice: DENIES Smoking Status: Unknown if Ever Smoked Former Smoker, Quit: Jan 31, 1985 Type Used: Cigarettes Recent Hopitalizations: No Immunizations Up To Date Tetanus Booster (TDap): More than 5yrs Date of Pneumonia Vaccine: Mar 12, 2009 Date of Influenza Vaccine: Feb 09, 2020 Seasonal Allergies Seasonal Allergies: No Past Medical History Surgeries: Appendectomy, Gallbladder, Joint Replacement, Orthopedic Cardiac: Atrial Fibrillation (08/14/20), Chronic Edema/Swelling, High Cholesterol, Hypertension, Rheumatic Fever Reproductive: No Sexually Transmitted Disease: No Genitourinary: Benign Prostatic Hyperpl, Bladder Infection, Renal Failure Gastrointestinal: Gastroesophageal Reflux, Polyps Musculoskeletal: Arthritis Endocrine: Lupus Psychosocial: Anxiety, Depression History of Blood Disorders: No Family History SOCIAL HISTORY: -ETOH--HISTORY OF USE/ABUSE -DRUGS-DENIES USE -SMOKED 1 PPD X 30 YEARS, QUIT SEVERAL YEARS AGO PAST SURGICAL HISTORY: -BILATERAL ROTATOR CUFF REPAIR -HAND SURGERY -LEFT TOTAL KNEE REPLACEMENT -LEFT THORACENTESIS 10/2012 FOR PLEURAL EFFUSION -APPENDECTOMY -CHOLECYSTECTOMY ( GANGRENOUS GALLBLADDER) -COLONOSCOPY WITH POLYPECTOMY 2013 -BILATERAL CATARACT SURGERY Prior Level of Function Bed Mobility: 6 Transfers: 6 Gait: 6 Stairs: 6 Indoor Mobility (Ambulation): Independent Stairs: Independent Prior Devices Use: None PM&R Allergy/Meds/Data Review Allergies Coded Allergies: No Known Drug Allergies (Unverified , 01/29/19) Home Medications Scheduled Bumetanide (Bumetanide), 0.5 MG PO DAILY, (Reported) Hydroxychloroquine Sulfate (Hydroxychloroquine Sulfate), 200 MG PO DAILY, (Reported) Latanoprost (Xalatan), 1 DROP OU HS, (Reported) Losartan Potassium (Losartan Potassium), 50 MG PO DAILY, (Reported) Tamsulosin HCl (Flomax), 0.4 MG PO HS, (Reported) Venlafaxine HCl (Venlafaxine HCl ER), 300 MG PO DAILY, (Reported) Scheduled PRN Acetaminophen (Tylenol Extra Strength), 500-1,000 MG PO Q8H PRN for PAIN-MILD (1-4), (Reported) Discontinued Medications Azithromycin (Azithromycin), 250 MG PO UD Discontinued Reason: Duplicate Order Ibuprofen (Ibuprofen), 600 MG PO Q6H PRN for PAIN-MILD, (Reported) Discontinued Reason: No Longer Taking Losartan Potassium (Losartan Potassium), 100 MG PO DAILY, (Reported) Discontinued Reason: No Longer Taking Current Medications Current Medications REVIEWED Review of Systems Constitutional: see HPI, malaise, weakness EENTM: no symptoms reported Respiratory: dyspnea on exertion Cardiovascular: no symptoms reported Gastrointestinal: no symptoms reported Genitourinary: no symptoms reported Skin: no symptoms reported Psychiatric/Neurological: No Symptoms Reported All Other Systems Reviewed Negative Unless Noted: Yes Physical Exam Physical Exam Vital Signs Vital Signs - First Documented 08/15/20 12:06 Temp 36.2 Pulse 79 Resp 18 B/P (MAP) 142/67 (92) Pulse Ox 91 O2 Delivery Room Air Capillary Refill : Height, Weight, BMI Height: '0" Weight: 230lbs. oz. [id number]; 29.04 BMI Method:Stated General Appearance: No Apparent Distress, WD/WN, Chronically ill, Obese Eyes: Bilateral Eye Normal Inspection, Bilateral Eye PERRL HEENT: PERRL/EOMI, Normal ENT Inspection, Pharynx Normal Neck: Full Range of Motion, Normal Inspection, Non Tender, Supple, Carotid Bruit Respiratory: Chest Non Tender, Lungs Clear, No Accessory Muscle Use, No Respiratory Distress, Decreased Breath Sounds Cardiovascular: Regular Rate, Rhythm, No Edema, No Gallop, No JVD, No Murmur, Normal Peripheral Pulses Gastrointestinal: Normal Bowel Sounds, No Organomegaly, No Pulsatile Mass, Non Tender, Soft Back: Normal Inspection, No CVA Tenderness, No Vertebral Tenderness Extremity: Normal Capillary Refill, Normal Inspection, Normal Range of Motion, Non Tender, No Calf Tenderness, No Pedal Edema Neurologic/Psychiatric: Alert, Oriented x3, Abnormal Gait, Depressed Affect, Motor Weakness (generalized) Skin: Normal Color, Warm/Dry Lymphatic: No Adenopathy PM&R Medical Assessment & Plan REHAB/MEDICAL ASSESSMENT AND PLAN: REHAB IMPAIRMENT GROUP: Debility ETIOLOGIC DIAGNOSIS: Debility The comorbidities that impact the patients function and/or functional outcome by: Advanced age, new onset AF, Urinary retention, angst over 's critical illness REHAB PLAN: The patient is being admitted to our comprehensive inpatient rehabilitation facility and can tolerate the intensity of service consisting of at least: 180 minutes of therapy a day, 5 out of 7 days a week Rehab treatment will consist of: PT OT will focus on regaining function and ambulation and independence of ADL's and fall risk prevention The patient/family has a good understanding of our discharge process and will benefit from an interdisciplinary inpatient rehabilitation program. The patient has potential to make improvement and is in need of at least two of the following multidisciplinary therapies including but not limited to physical, occupational, speech, and prosthetics and orthotics. Additionally the patient will need services from respiratory, nutritional services, wound care, psychology, etc. (Customize this to each patient). Given the patients complex condition and risk of further medical complications, rehabilitation services cannot be safely or effectively provided at a lower level of care such as a long-term facility. BARRIERS TO DISCHARGE: Advanced age ESTIMATED LOS: 10 days DISPOSITION: Home RELEVANT CHANGES SINCE PREADMISSION SCREENING: I have compared the patients medical and functional status at the time of the preadmission screening and there are: no changes PROGNOSIS: Good REHABILITATION GOALS: 1. PT OT will focus on regaining function and ambulation and independence of ADL's and fall risk prevention All the above goals were reviewed with the patient and he/she is in agreement. By signing this document, I acknowledge that I have personally performed a full physical examination on this patient within 24 hours of admission to this inpatient rehabilitation facility and have determined the patient to be able to tolerate the above course of treatment at an intensive level for a reasonable period of time. I will be completing a detailed individualized Plan of Care for this patient by day #4 of the patients stay based upon the Preadmission Screen, the Post-Admission Evaluation, and the therapy evaluations. Admission Dx/Comorbidities: (1) Ventricular arrhythmia ICD Codes: I49.9 - Cardiac arrhythmia, unspecified (2) Pneumonitis ICD Codes: J18.9 - Pneumonia, unspecified organism (3) Knee pain, right ICD Codes: M25.561 - Pain in right knee (4) Atrial fibrillation ICD Codes: I48.91 - Unspecified atrial fibrillation (5) Falls frequently ICD Codes: R29.6 - Repeated falls (6) Urinary retention ICD Codes: R33.9 - Retention of urine, unspecified (7) Lupus Status: Chronic ICD Codes: M32.9 - Systemic lupus erythematosus, unspecified (8) Hypertension Status: Acute ICD Codes: I10 - Essential (primary) hypertension (9) Leg edema Status: Acute ICD Codes: R60.0 - Localized edema (10) Renal insufficiency Status: Acute ICD Codes: N28.9 - Disorder of kidney and ureter, unspecified Assessment/Plan Assessment and Plan Assess & Plan/Chief Complaint Assessment: Ventricular arrhythmia A fib new onset OAC new HTN Lupus Obesity Urinary retention since dc DC Pneumonitis CRI Plan: Monitor closely Cardiology appreciated Monitor creat Urinary retention management ELDA LUNA DO Aug 15, 2020 12:17
--- NOTE | 2020-08-15 12:23 | Progress Note ---
JAVAD GONZALEZ MED STUDENT 08/15/20 1223: Progress Note CC: Dizzy with frequent falls and h/o HTN, hypercholesterolemia, discoid lupus, degenerative joint disease and rheumatic fever Mr. Lutz is an 80yoWM clinic pt of Dr. Lebron with a history of HTN, hypercholesterolemia, degenerative joint disease, and discoid lupus who presented to [facility] ED via EMS on 08/13/20 after about 24 hours of dizziness causing multiple falls. He was found to be in VTach at a rate of 118 and given an Amiodarone bolus and drip which resolved rhythm. Due to his fall, the R shoulder was x-rayed with no acute abnormalities and a head CT was done which was negative. He had a mildly elevated troponin (0.037), creatinine of 1.53, and b/l leg edema which warranted b/l venous doppler U/S demonstrating no evidence of DVT. He was admitted for a cardiology workup which consisted of an echo (normal EF at 60%, L atrial dilatation, moderate mitral regurgitation and mild tricuspid regurgitation) and a heart cath that showed heavily calcified arteries but no significant obstruction. Following workup cardiology believes Mr. Lutz suffers from wide-complex tachycardia with frequent and symptomatic PVCs and an underlying paroxysmal atrial fibrillation with aberrant conduction. He is stable and will be maintained on Amiodarone and Eliquis. During his stay he also received 1g of ceftriaxone [leukocytosis (16.6) and CXR showing R basilar atelectasis/pneumonitis], as well as a dose of Lasix after subsequent imaging showed pulmonary edema. Patient has a history of left total knee replacement and regular right knee injections, so Dr. Doe was consulted regarding R knee pain and plans to do steroid injection next week after pneumonitis is resolved. Patient will have close follow-up and be transferred to rehab today (08/15/20) with the goal of overall strengthening and balance improvement. He is familiar with [facility] rehab as he recently visited his who was a patient there. Unfortunately, she was transferred to [facility] ICU after complications arose and this is where she currently remains with guarded prognosis. Patient's family is closely involved and supportive, frequently at bedside for both parents. YARI LUNA DO 08/15/202006: Supervisory-Addendum Brief Verification & Attestation Participated in pt care: history, MDM, physical Personally performed: exam, history, MDM, supervision of care Care discussed with: Medical Student Procedures: n/a Results interpretation: Verified all documentation Verification and Attestation of Medical Student E/M Service A medical student performed and documented this service in my presence. I reviewed and verified all information documented by the medical student and made modifications to such information, when appropriate. I personally performed the physical exam and medical decision making. Yari Luna, Aug 15, 2020,20:07 JAVAD GONZALEZ MED STUDENT Aug 15, 2020 12:23 YARI LUNA DO Aug 15, 2020 20:07
[2020-08-15] MEDS: CATHETER FLUSH 10 ML SYR IV SCH ×2 (14:18→20:36)
--- NOTE | 2020-08-15 14:24 | Occupational Therapy Eval ---
OT Evaluation-General/PLF Medical Diagnosis Admission Date Aug 15, 2020 at 10:45 Medical Diagnosis: Ventricular Tachycardia Onset Date: Aug 13, 2020 Therapy Diagnosis Therapy Diagnosis: Debility Height/Weight Height (Inches): 0 Weight (Pounds): 230 Precautions Precautions/Isolations: Fall Prevention, Standard Precautions Weight Bear Status Weight Bearing Restriction: Weight Bearing/Tolerated Referral Physician: Dr. Self Referral Reason: Activity Tolerance, Self Care, Evaluation/Treatment, Strengthening/ROM Medical History Pertinent Medical History: HTN, Renal Insufficiency Additional Medical History Bilateral Cataract surgery, Bilateral carpal tunnel surgery, bilateral rotator cuff repair. Current History Pt. has been having multiple falls recently. Daughter reports that his legs seem to "get caught up underneath him." Reviewed History: Yes Social History Home: Single Level Current Living Status: Spouse Entry Into Home: Level Entry Steps Inside Home: 2 (with railing) ADL-Prior Level of Function SCALE: Activities may be completed with or without assistive devices. 7-Wzbihwjrrb-jdhgjxc completes the activity by him/herself with no assistance from a helper. 5-Set-up or Clean-up Assistance-helper sets up or cleans up; patient completes activity. [place] assists only prior to or following the activity. 4-Supervision or Touching Assistance-helper provides verbal cues and/or touching/steadying and/or contact guard assistance as patient completes activity. Assistance may be provided throughout the activity or intermittently. 3-Partial/Moderate Assistance-helper does LESS THAN HALF the effort. [place] lifts, holds or supports trunk or limbs, but provides less than half the effort. 2-Substantial/Maximal Assistance-helper does MORE THAN HALF the effort. [place] lifts or holds trunk or limbs and provides more than half the effort. 1-Ooyaytepz-gihfdf does ALL the effort. Patient does none of the effort to complete the activity. Or, the assistance of 2 or more helpers is required for the patient to complete the activity. If activity was not attempted, code reason: 7-Patient Refused. 9-Not Applicable-not attempted and the patient did not perform the activity before the current illness, exacerbation or injury. 10-Not Attempted due to Environmental Limitations-(lack of equipment, weather restraints, etc.). 88-Not Attempted due to Medical Conditions or Safety Concerns. ADL PLOF Comments Pt. and daughter report pt. was independent with bathing/dressing, but did not often use his walker or cane in the home. Pt's spouse was more of a caregiver to him, assisting him as needed, but she is currently in the hospital as well. Pt. has been having multiple falls at home. Self Care: Unknown Functional Cognition: Independent DME/Equipment: Bath Chair, Shower DME/Equipment Comments Pt. has lift chair, walker, cane OT Current Status Subjective Daughter verbalizes that pt's right shoulder has been hurting, but pt. states that it does not. Pt. does report that his right knee has been sore. He has been using ice this date and pain meds as needed. Mental Status/Objective Patient Orientation: Person, Place Attachments: IV Current Hand Dominance: Right Upper Extremity ROM Pt. is able to flex right shoulder to approximately 90 degrees, but indicates that it is functional. He has increased difficulty flexing left shoulder, and states that he has had difficulty since his rotator cuff surgery. ADL-Treatment Eating (QC): 4 (Per pt.) Oral Hygiene (QC): 7 ("I will do it tomorrow.") Shower/Bathe Self (QC): 2 (Overall, pt. requires max assist to shower. He requires assistance with rear tanisha area, bilateral LE, and under left arm.) Upper Body Dressing (QC): 3 (Min assist) Lower Body Dressing (QC): 3 (Mod assist. Pt. is max for donning brief and pants over feet up to thighs. Therapy assists with standing, and pt. is able to assist donning over hips. Therapy dons over hips the rest of the way.) On/Off Footwear (QC): 2 Toileting Hygiene (QC): 7 Other Treatments Pt. seen at two times this date, for Co-treatment as needed from PT due to poor endurance and activity tolerance. OT focused on UE assessment, hand placement on walker, and ADL skills while PT focused on LE strength, mobility, transfers. Pt. practiced getting into/out of bed with mod assist for sit-supine, and SBA for supine-sit. Depending on height of surface pt. is standing from, he requires min assist to max assist. Pt. transferred to shower chair and taken to shower room. Attempts to assist self but is unable to bend over to feet, and demonstrates overall poor activity tolerance at times. Went to therapy gym after shower and stood at parallel bar with min assist, and able to stand holding bar approximately 5 minutes. Pt. educated on OT roles, AE needs and training, and therapy goals overall. Pt. verbalizes understanding. Pt. back in chair at end of last session. Please see end of note for designated times. Education OT Patient Education: Correct positioning, Modified ADL techniques, Progress toward Goal/Update tx plan, Purpose of tx/functional activities, Reviewed precautions, Rehab process, Transfer techniques Teaching Recipient: Patient Teaching Methods: Demonstration, Discussion Response to Teaching: Verbalize Understanding, Return Demonstration OT Short Term Goals Short Term Goals Time Frame: Aug 22, 2020 Eatin Oral hygiene: 4 Toileting hygiene: 3 Shower/bathe self: 3 Upper body dressin Lower body dressin Putting on/taking off footwear: 3 (With AE) OT Mcc Goals Erp Implementation Consultant Goals Time Frame: Sep 05, 2020 Eating (QC): 6 Oral Hygiene (QC): 6 Toileting Hygiene (QC): 6 Shower/Bathe Self (QC): 4 Upper Body Dressing (QC): 6 Lower Body Dressing (QC): 4 On/Off Footwear (QC): 4 Additional Goals: 1-Demonstrate ADL Tasks, 2-Verbalize Understanding, 3- ImproveStrength/Sallie 1=Demonstrate adherence to instructed precautions during ADL tasks. 2=Patient will verbalize/demonstrate understanding of assistive devices/modifications for ADL. 3=Patient will improve strength/tolerance for activity to enable patient to perform ADL's. OT Education/Plan Problem List/Assessment Assessment: Decreased Activ Tolerance, Decreased UE Strength, Dependent Transfers, Impaired Bed Mobility, Impaired Funct Balance, Impaired I ADL's, Impaired Self-Care Skills, Restricted Funct UE ROM Discharge Recommendations Plan/Recommendations: Continue POC Therapy Discharge Recommendati: Post Acute OT Equpiment Recommendations-D/C: Hip Kit Treatment Plan/Plan of Care Treatment,Training & Education: Yes Patient would benefit from OT for education, treatment and training to promote independence in ADL's, mobility, safety and/or upper extremity function for ADL's. Plan of Care: ADL Retraining, Functional Mobility, Group Exercise/Act as Ind, UE Funct Exercise/Act Treatment Duration: Sep 05, 2020 Frequency: At least 5 of 7 days/Wk (IRF) Estimated Hrs Per Day: 1.5 hours per day Agreement: Yes Rehab Potential: Good Time/GCodes Start Time: 10:45 Stop Time: 13:55 Total Time Billed (hr/min): 90 Billed Treatment Time 8764-6381 PT eval, no charge [id number] OT eval, 1, EVH x 10minutes [id number] FA x 25minutes-Cotreatment with PT [id number] 1, ADL x 40minutes, FA x 15minutes (Co-treat with PT from [id number]) Please see above note for designated roles. TASH PASCUAL OT Aug 15, 2020 14:24
--- NOTE | 2020-08-15 14:52 | Physical Therapy Daily Note ---
PT Daily Note-Current Subjective Pt sitting in recliner and about to transfer with OT upon arrival. Pt agrees to PT/OT co-treat. Mental Status Patient Orientation: Person, Place Attachments: IV Transfers SCALE: Activities may be completed with or without assistive devices. 9-Lgujocjpdz-hrdzjvm completes the activity by him/herself with no assistance from a helper. 5-Set-up or Clean-up Assistance-helper sets up or cleans up; patient completes activity. [place] assists only prior to or following the activity. 4-Supervision or Touching Assistance-helper provides verbal cues and/or touching/steadying and/or contact guard assistance as patient completes activity. Assistance may be provided throughout the activity or intermittently. 3-Partial/Moderate Assistance-helper does LESS THAN HALF the effort. [place] lifts, holds or supports trunk or limbs, but provides less than half the effort. 2-Substantial/Maximal Assistance-helper does MORE THAN HALF the effort. [place] lifts or holds trunk or limbs and provides more than half the effort. 6-Wfrjhhtfm-hfzdrp does ALL the effort. Patient does none of the effort to complete the activity. Or, the assistance of 2 or more helpers is required for the patient to complete the activity. If activity was not attempted, code reason: 7-Patient Refused. 9-Not Applicable-not attempted and the patient did not perform the activity before the current illness, exacerbation or injury. 10-Not Attempted due to Environmental Limitations-(lack of equipment, weather restraints, etc.). 88-Not Attempted due to Medical Conditions or Safety Concerns. Sit to Stand (QC): 3 Weight Bearing Full Weight Bearing Full Weight Bearing Gait Training Does the Patient Walk?: No and Walking Goal IS indicated Treatments Pt. seen at two times this date, for Co-treatment as needed from PT due to poor endurance and activity tolerance. OT focused on UE assessment, hand placement on walker, and ADL skills while PT focused on LE strength, mobility, transfers. Pt. transferred to shower chair and taken to shower room. Attempts to assist self but is unable to bend over to feet, and demonstrates overall poor activity tolerance at times. PT departs but OT continues tx. Assessment Current Status: Fair Progress PT Shelter Goals Shelter Goals Roll Left & Right (QC): 5 Sit to Lying (QC): 5 Lying-Sitting on Side/Bed(QC): 5 Sit to Stand (QC): 5 Chair/Fmj-zh-Vseey Xfer(QC): 5 Toilet Transfer (QC): 5 Car Transfer (QC): 5 Does the Patient Walk: Yes Walk 10 feet (QC): 5 Walk 50ft with 2 Turns (QC): 5 Walk 150 ft (QC): 5 Walking 10ft on Uneven Surface: 5 1 Step (curb) (QC): 5 4 Steps (QC): 5 12 Steps (QC): 9 Picking up an Object (QC): 5 Does the Pt use WC or Scooter?: No Wheel 50 feet with 2 turns (QC: 5 Type: Manual Wheel 150 feet: 5 Type: Manual PT Plan Problem List Problem List: Activity Tolerance, Functional Strength, Transfer Treatment/Plan Treatment Plan: Continue Plan of Care Treatment Duration: Sep 05, 2020 Frequency: At least 5 of 7 days/Wk (IRF) Estimated Hrs Per Day: 1.5 hours per day Safety Risks/Education Patient Education: Transfer Techniques, Safety Issues Teaching Recipient: Patient Teaching Methods: Discussion Response to Teaching: Verbalize Understanding Time/GCodes Time In: 1305 Time Out: 1335 Total Billed Treatment Time: 30 Total Billed Treatment 1, FA x2 (30m) GISELLE FLANAGAN FUNERAL DIRECTOR Aug 15, 2020 14:52
[2020-08-15 17:02] VITALS: BP 139/65
[2020-08-15] MEDS: AMIODARONE 200 MG (CORDARONE) TAB PO SCH (20:35)
[2020-08-15] MEDS: TAMSULOSIN 0.4 MG (FLOMAX) CAP PO SCH (20:35)
[2020-08-15] MEDS: APIXABAN 5 MG (ELIQUIS) TABLET PO SCH (20:35)
[2020-08-15] MEDS: LATANOPROST 0.005% (XALATAN) OPHTH SOLN 2.5 ML OU SCH (20:36)
[2020-08-16] MEDS: CATHETER FLUSH 10 ML SYR IV SCH ×3 (04:09→20:31)
[2020-08-16 04:34] LABS: BASOPHILS % (AUTO) 1 % (0-10); EOSINOPHILS # (AUTO) 0.3 10^3/uL (0.0-0.3); EOSINOPHILS % (AUTO) 3 % (0-10); HEMATOCRIT 28 % (40-54); HEMOGLOBIN 8.9 g/dL (13.3-17.7); LYMPHOCYTES # (AUTO) 0.9 10^3/uL (1.0-4.0); LYMPHOCYTES % (AUTO) 10 % (12-44); MEAN CORPUSCULAR HEMOGLOBIN 29 pg (25-34); MEAN CORPUSCULAR HGB CONC 32 g/dL (32-36); MEAN CORPUSCULAR VOLUME 92 fL (80-99); MEAN PLATELET VOLUME 12.3 fL (9.0-12.2); MONOCYTES % (AUTO) 12 % (0-12); NEUTROPHILS % (AUTO) 74 % (42-75); PLATELET COUNT 145 10^3/uL (130-400); WHITE BLOOD COUNT 8.2 10^3/uL (4.3-11.0)
[2020-08-16 04:48] LABS: ALBUMIN 3.2 GM/DL (3.2-4.5); CHLORIDE 106 MMOL/L (98-107); POTASSIUM 3.9 MMOL/L (3.6-5.0); SODIUM 137 MMOL/L (135-145)
[2020-08-16 04:50] LABS: GLUCOSE 88 MG/DL (70-105); TOTAL PROTEIN 6.1 GM/DL (6.4-8.2)
[2020-08-16 04:51] LABS: CARBON DIOXIDE 19 MMOL/L (21-32)
[2020-08-16 04:54] LABS: ALKALINE PHOSPHATASE 46 U/L (40-136); CREATININE SERUM 0.93 MG/DL (0.60-1.30); GFR ESTIMATED > 60
[2020-08-16 04:55] LABS: BUN/CREATININE RATIO 19
[2020-08-16 04:57] LABS: ALANINE AMINOTRANSFERASE 18 U/L (0-55)
[2020-08-16] MEDS ORDERED: cefTRIAXone FOR IV USE 1,000 MG in WATER (STERILE) FOR INJECTION 10 ML IV SCH (05:00)
[2020-08-16 05:01] VITALS: BP 155/69
[2020-08-16] MEDS: VENlafaxine XR 75 MG (EFFEXOR XR) CAP PO SCH (06:06)
--- NOTE | 2020-08-16 08:09 | Cardiology Progress Note ---
Subjective Date Seen by Provider: Aug 16, 2020 Time Seen by Provider: 08:09 Subjective/Events-last exam No new complaints, denies any chest pain or dyspnea. Review of Systems General: No Chills, No Night Sweats, No Fatigue, No Malaise, No Appetite, No Other HEENT: No Head Aches, No Visual Changes, No Eye Pain, No Ear Pain, No Dysphasia, No Sinus Congestion, No Post Nasal Drip, No Sore Throat, No Other Pulmonary: No Dyspnea, No Cough, No Pleuritic Chest Pain, No Other Cardiovascular: No: Chest Pain, Palpitations, Orthopnea, Paroxysmal Noc. Dyspnea, Edema, Lt Headedness, Other Objective-Cardiology Exam Last Set of Vital Signs Vital Signs 08/16/20 08/16/20 08/16/20 05:01 08:59 09:11 Temp 37.0 Pulse 89 Resp 20 B/P (MAP) 127/65 (85) Pulse Ox 91 O2 Delivery Room Air Capillary Refill : I&O Intake and Output 08/16/20 00:00 Intake Total 500 ml Balance 500 ml Intake Oral 500 ml # Voids 1 Daily Weight Change No General: Alert, Oriented X3, Cooperative HEENT: Atraumatic, PERRLA Neck: Supple, No JVD, No Thyromegaly Lungs: Clear to Auscultation, Normal Air Movement Heart: Regular Rate, Normal S1, Normal S2, No Murmurs Abdomen: Normal Bowel Sounds, Soft, No Tenderness, No Hepatosplenomegaly, No Masses Extremities: No Clubbing, No Cyanosis, No Edema, Normal Pulses, No Tenderness/Swelling Neuro: Normal Speech, Cranial Nerves 3-12 NL Psych/Mental Status: Mental Status NL, Mood NL Results Lab Laboratory Tests 08/16/20 04:05 A/P-Cardiology Admission Diagnosis Wide-complex tachycardia PAF HTN Dizziness Assessment/Plan Wide-complex tachycardia, multiple episodes, frequent PVCs, symptomatic. most probably paroxysmal atrial fibrillation with aberrant conduction, started on amiodarone, Eliquis. Telemetry showing SR with PVCs, continue to monitor Mild elevation in troponin level, cardiac catheterization was carried out on August 13, 2020 showing heavily calcified coronary system with mild to moderate disease nonobstructive disease Dizziness and lightheadedness, near syncope secondary to tachycardia. Feeling better at this time Hypertension, mildly elevated, continue to monitor blood pressure Echocardiogram showed normal LV size and function, EF 60%, moderate mitral regurgitation, mild tricuspid regurgitation. Left atrial dilatation 5.1 cm. Generalized weakness, orthostatic dizziness and lightheadedness, unsteady gait, starting PT OT, probable transfer to rehab today Patient was seen and evaluated with Petra, examination performed, management plan was discussed, agree with the current scribed note, I made few changes to the note using Italic font Patient was seen at bedside, feeling better, better energy No palpitation, no dizziness Continue to monitor on telemetry and continue current medication Supervisory-Addendum Brief Supervisory Addendum Participated in pt care: history, MDM, physical Personally performed: exam, history, MDM Care discussed with: PETRA BOLES Aug 16, 2020 8:09 am TERESA HU MD Aug 16, 2020 12:27 pm
--- NOTE | 2020-08-16 08:58 | Physical Therapy Daily Note ---
PT Daily Note-Current Subjective Patient seated upright in chair pre tx. Patient reports knee pain was less severe today, but did not rate pain. Patient consented to treatment. Appearance Patient seated upright in chair post tx, with call button within reach and tray table next to him. Mental Status Patient Orientation: Person, Place, Time, Normal For Age Telemetry Transfers SCALE: Activities may be completed with or without assistive devices. 9-Votharhlrf-mvxmixw completes the activity by him/herself with no assistance from a helper. 5-Set-up or Clean-up Assistance-helper sets up or cleans up; patient completes activity. [place] assists only prior to or following the activity. 4-Supervision or Touching Assistance-helper provides verbal cues and/or touching/steadying and/or contact guard assistance as patient completes activity. Assistance may be provided throughout the activity or intermittently. 3-Partial/Moderate Assistance-helper does LESS THAN HALF the effort. [place] lifts, holds or supports trunk or limbs, but provides less than half the effort. 2-Substantial/Maximal Assistance-helper does MORE THAN HALF the effort. [place] lifts or holds trunk or limbs and provides more than half the effort. 1-Vdpvgtjig-zgzser does ALL the effort. Patient does none of the effort to complete the activity. Or, the assistance of 2 or more helpers is required for the patient to complete the activity. If activity was not attempted, code reason: 7-Patient Refused. 9-Not Applicable-not attempted and the patient did not perform the activity before the current illness, exacerbation or injury. 10-Not Attempted due to Environmental Limitations-(lack of equipment, weather restraints, etc.). 88-Not Attempted due to Medical Conditions or Safety Concerns. Sit to Stand (QC): 3 (min) Chair/Qel-my-Xklfq Xfer(QC): 3 (min) Patient takes 2-3 attempts to stand before sit <-> stand transfer is completed. Weight Bearing Full Weight Bearing Full Weight Bearing Gait Training Does the Patient Walk?: Yes Distance: 100' x2 Walk 10 feet (QC): 4 Walk 50 ft with 2 Turns(QC): 4 Gait Persons Needed: 1 Gait Assistive Device: FWW CGA. Patient demonstrates mild festinating gait with turns, requires increased cueing to turn body all the way around before attempting to sit. Patient has tendency to ambulate with walker out away from body, increasing a flexed posture. Cueing to keep the walker close to body helped increase upright posturing with ambulation. Exercises Seated Therapy Exercises: Ankle pumps, Long arc quads, Hip flexion, Hip abd/add (small ball, RTB) Seated Reps: 15 (2 sets of each) No pain complaints reported in R knee with ther ex today. NuStep Minutes: 15 NuStep Workload: 4 Treatments LE strengthening, ROM, gait training, transfers Assessment Current Status: Fair Progress Patient tolerated ther ex much better today, and was able to ambulate farther without needing rest break. PT Short Term Goals Short Term Goals Time Frame: Aug 22, 2020 Roll Left & Right: 4 (SBA) Sit to lyin (SBA) Lying to sitting on side of be: 4 (SBA) Sit to stand: 4 (SBA) Chair/llf-mk-kamax transfer: 4 (SBA) Toilet transfer: 4 (SBA) Car transfer: 4 (SBA) Walk 10 feet: 4 (CGA) Walk 50 feet with two turns: 4 (CGA) Walk 150 feet: 4 (CGA) Walking 10ft on uneven surface: 3 (min) 1 step (curb): 3 (min) Does pt use a wc or scooter: Yes Wheel 50ft w/2 turns: 4 (SBA) Wheel 150 feet: 4 (SBA) Type: Manual PT Gelatin Dynamite Packing Operator Goals Gelatin Dynamite Packing Operator Goals PT Gelatin Dynamite Packing Operator Goals Time Frame: Sep 05, 2020 Roll Left & Right (QC): 5 Sit to Lying (QC): 5 Lying-Sitting on Side/Bed(QC): 5 Sit to Stand (QC): 5 Chair/Fmo-lx-Fjieo Xfer(QC): 5 Toilet Transfer (QC): 5 Car Transfer (QC): 5 Does the Patient Walk: Yes Walk 10 feet (QC): 5 Walk 50ft with 2 Turns (QC): 5 Walk 150 ft (QC): 5 Walking 10ft on Uneven Surface: 5 1 Step (curb) (QC): 5 4 Steps (QC): 5 12 Steps (QC): 9 Picking up an Object (QC): 5 Does the Pt use WC or Scooter?: No Wheel 50 feet with 2 turns (QC: 5 Type: Manual Wheel 150 feet: 5 Type: Manual PT Plan Problem List Problem List: Activity Tolerance, Functional Strength, Safety, Balance, Gait, Transfer, Bed Mobility, ROM Treatment/Plan Treatment Plan: Continue Plan of Care Treatment Plan: Bed Mobility, Education, Functional Activity Sallie, Functional Strength, Group Therapy, Gait, Safety, Therapeutic Exercise, Transfers Treatment Duration: Sep 05, 2020 Frequency: At least 5 of 7 days/Wk (IRF) Estimated Hrs Per Day: 1.5 hours per day Patient and/or Family Agrees t: Yes Safety Risks/Education Patient Education: Gait Training, Transfer Techniques, Correct Positioning, W/C Management, Safety Issues Teaching Recipient: Patient Teaching Methods: Demonstration, Discussion Response to Teaching: Verbalize Understanding, Return Demonstration, Reinforcement Needed Time/GCodes Time In: 0800 Time Out: 0900 Total Billed Treatment Time: 60 Total Billed Treatment 1 visit: FA x2: 30' EX x2: 30' JIMENEZ HOBSON PT Aug 16, 2020 08:58
[2020-08-16 08:59] VITALS: BP 127/65
[2020-08-16] MEDS: BUMETANIDE 1 MG (BUMEX) TAB PO SCH (09:00)
[2020-08-16] MEDS: APIXABAN 5 MG (ELIQUIS) TABLET PO SCH ×2 (09:00→20:29)
[2020-08-16] MEDS: AMIODARONE 200 MG (CORDARONE) TAB PO SCH ×2 (09:00→20:30)
[2020-08-16] MEDS: polyethylene glycoL POWDER 17 GM (MIRALAX) PACK PO SCH ×2 (09:16→19:19)
[2020-08-16] MEDS: DOCUSATE SODIUM 100 MG (COLACE) CAP PO SCH ×3 (09:16→19:18)
[2020-08-16] MEDS: SENNA W/DOCUSATE (SENOKOT S) TABLET PO SCH ×2 (09:16→19:19)
--- NOTE | 2020-08-16 11:55 | Physical Therapy Daily Note ---
PT Daily Note-Current Subjective Patient was seated upright in chair pre tx. Patient reported mild, unrated pain in R knee, and noted he would be willing to participate in exercise in room but was "too tired for a walk." Appearance Patient seated on toilet post tx. Nurse in room with patient upon PT departure. Mental Status Patient Orientation: Person, Place, Time, Normal For Age Telemetry Transfers SCALE: Activities may be completed with or without assistive devices. 7-Ecpfbixxef-rzbzoys completes the activity by him/herself with no assistance from a helper. 5-Set-up or Clean-up Assistance-helper sets up or cleans up; patient completes activity. [place] assists only prior to or following the activity. 4-Supervision or Touching Assistance-helper provides verbal cues and/or touching/steadying and/or contact guard assistance as patient completes activity. Assistance may be provided throughout the activity or intermittently. 3-Partial/Moderate Assistance-helper does LESS THAN HALF the effort. [place] lifts, holds or supports trunk or limbs, but provides less than half the effort. 2-Substantial/Maximal Assistance-helper does MORE THAN HALF the effort. [place] lifts or holds trunk or limbs and provides more than half the effort. 4-Czgfrkder-yjqhnf does ALL the effort. Patient does none of the effort to complete the activity. Or, the assistance of 2 or more helpers is required for the patient to complete the activity. If activity was not attempted, code reason: 7-Patient Refused. 9-Not Applicable-not attempted and the patient did not perform the activity before the current illness, exacerbation or injury. 10-Not Attempted due to Environmental Limitations-(lack of equipment, weather restraints, etc.). 88-Not Attempted due to Medical Conditions or Safety Concerns. Sit to Stand (QC): 3 Toilet Transfer (QC): 3 min; patient requires cues for completing turns with toileting, patient continues to "plop" when descending to sit Weight Bearing Full Weight Bearing Full Weight Bearing Gait Training Does the Patient Walk?: Yes Distance: 8' Gait Assistive Device: FWW CGA Exercises Supine Ex: Ankle pumps, Quad Set, Heel Slides Supine Reps: 15 Seated Therapy Exercises: Ankle pumps, Long arc quads, Hip flexion, Hip abd/add, Glut set Seated Reps: 15 Treatments LE strengthening, transfers Assessment Current Status: Fair Progress Patient demonstrates less assistance needed with sit <-> stand, but continues to rely on verbal cues for smooth transfers. PT Short Term Goals Short Term Goals Time Frame: Aug 22, 2020 Roll Left & Right: 4 (SBA) Sit to lyin (SBA) Lying to sitting on side of be: 4 (SBA) Sit to stand: 4 (SBA) Chair/wjm-hw-bgiui transfer: 4 (SBA) Toilet transfer: 4 (SBA) Car transfer: 4 (SBA) Walk 10 feet: 4 (CGA) Walk 50 feet with two turns: 4 (CGA) Walk 150 feet: 4 (CGA) Walking 10ft on uneven surface: 3 (min) 1 step (curb): 3 (min) Does pt use a wc or scooter: Yes Wheel 50ft w/2 turns: 4 (SBA) Wheel 150 feet: 4 (SBA) Type: Manual PT Intermediate Goals Senior Security Engineer Goals PT Intermediate Goals Time Frame: Sep 05, 2020 Roll Left & Right (QC): 5 Sit to Lying (QC): 5 Lying-Sitting on Side/Bed(QC): 5 Sit to Stand (QC): 5 Chair/Uii-mo-Nvnnu Xfer(QC): 5 Toilet Transfer (QC): 5 Car Transfer (QC): 5 Does the Patient Walk: Yes Walk 10 feet (QC): 5 Walk 50ft with 2 Turns (QC): 5 Walk 150 ft (QC): 5 Walking 10ft on Uneven Surface: 5 1 Step (curb) (QC): 5 4 Steps (QC): 5 12 Steps (QC): 9 Picking up an Object (QC): 5 Does the Pt use WC or Scooter?: No Wheel 50 feet with 2 turns (QC: 5 Type: Manual Wheel 150 feet: 5 Type: Manual PT Plan Problem List Problem List: Activity Tolerance, Functional Strength, Safety, Balance, Gait, Transfer, Bed Mobility, ROM Treatment/Plan Treatment Plan: Continue Plan of Care Treatment Plan: Bed Mobility, Education, Functional Activity Sallie, Functional Strength, Group Therapy, Gait, Safety, Therapeutic Exercise, Transfers Treatment Duration: Sep 05, 2020 Frequency: At least 5 of 7 days/Wk (IRF) Estimated Hrs Per Day: 1.5 hours per day Patient and/or Family Agrees t: Yes Safety Risks/Education Patient Education: Gait Training, Transfer Techniques, Correct Positioning, Safety Issues Teaching Recipient: Patient Teaching Methods: Demonstration, Discussion Response to Teaching: Verbalize Understanding, Return Demonstration, Reinforcement Needed Time/GCodes Time In: 1130 Time Out: 1145 Total Billed Treatment Time: 15 Total Billed Treatment 1 visit: EX: 15' JIMENEZ HOBSON PT Aug 16, 2020 11:55
--- NOTE | 2020-08-16 11:58 | Individualized Plan of Care ---
Individualized Plan of Care Rehab Nursing IPOC Order Admission Date Aug 15, 2020 at 10:45 Current Orders Orders Admission Order(Inpt,Obs,Sdc) (08/15/20 05:11) Vital Signs: Per Unit Policy ( 08,16,00 (08/15/20 05:11) Network Management Specialist-Inpt Rehab Con (08/15/20 05:11) Rehab Nursing Orders-Ipoc (08/15/20 05:11) Physical Therapy Rehab Orders (08/15/20 05:11) Occupational Therapy Rehab Ord (08/15/20 05:11) Speech Therapy Rehab Orders (08/15/20 05:11) Cbc With Automated Diff (08/16/20 06:00) Comprehensive Metabolic Panel (08/16/20 06:00) Intake & Output 06,14,22 (08/15/20 05:11) Precautions (Aru) (08/15/20 05:11) Rehab-Intensity Of Therapy (08/15/20 05:11) Initiate Admission Nursing Pro .admission (08/15/20 05:11) Acetaminophen Tablet/Caplet (Tylenol T (08/15/20 05:15) Alprazolam Tablet (Xanax Tablet) (08/15/20 05:15) Calcium Carbonate Chew Tablet (Antacid C (08/15/20 05:15) Diphenhydramine Tablet (Benadryl Tablet) (08/15/20 05:15) Docusate Sodium Capsule (Colace Capsule) (08/15/20 09:00) Docusate Sodium Capsule (Colace Capsule) (08/15/20 05:15) Bisacodyl Suppository (Dulcolax Supposit (08/15/20 05:15) Lactulose Oral Solution (Enulose Oral So (08/15/20 05:15) Na Phos/Na Biphos Enema (Fleet Enema Javier (08/15/20 05:15) Guaifenesin/Codeine Syrup (Robitussin Ac (08/15/20 05:15) Loperamide Tablet (Imodium Tablet) (08/15/20 05:15) Melatonin Tablet (Melatonin Tablet) (08/15/20 05:15) Polyethylene Glycol Powder Pkt (Miralax (08/15/20 09:00) Ondansetron Oral Dissolve Tab (Zofran (08/15/20 05:15) Senna S Tablet (Senokot S Tablet) (08/15/20 09:00) Initiate Admission Nursing Pro .admission (08/15/20 05:11) Admission Arrival Bed Request (08/15/20 11:23) Code/Resuscitation (08/15/20 12:15) Telemetry (08/15/20 12:15) Cho 60g/M 1snack (16-2000 Clifford) (08/15/20 Lunch) Acetaminophen Tablet/Caplet (Tylenol T (08/15/20 12:15) Amiodarone Tablet (Cordarone Tablet) (08/15/20 21:00) Apixaban Tablet (Eliquis Tablet) (08/15/20 21:00) Bumetanide Tablet (Bumex Tablet) (08/16/20 09:00) Docusate Sodium Capsule (Colace Capsule) (08/15/20 21:00) Hydroxychloroquine Sulfate (Plaquenil) (08/16/20 12:00) Ibuprofen Tablet (Motrin Tablet) (08/15/20 12:15) Latanoprost 0.005% Ophth Soln (Xalatan 0 (08/15/20 21:00) Patient May Use Own Meds, All (Patient M (08/15/20 12:15) Ceftriaxone For Iv Use (Rocephin For I (08/15/20 12:15) Sodium Chloride Flush (Catheter Flush Sy (08/15/20 14:00) Tamsulosin Capsule (Flomax Capsule) (08/15/20 21:00) Venlafaxine Xr Capsule (Effexor Xr Capsu (08/16/20 07:00) Consult Orthopedic Surgery (08/15/20 12:15) Telemetry Nursing Assessment ( (08/15/20 12:15) Consult Cardiology (08/15/20 12:15) Ceftriaxone For Iv Use (Rocephin For I (08/16/20 05:00) Patient Visit (08/15/20 ) Functional Activities, Ea 15 (08/15/20 ) Patient Visit (08/15/20 ) Pt Eval Moderate Complexity (08/15/20 ) Exercise Therap, Ea 15 Min (08/15/20 ) Functional Activities, Ea 15 (08/15/20 ) Iron Test (Fe) (08/16/20 12:26) Mirtazapine Tablet (Remeron Tablet) (08/16/20 21:00) Patient Visit (08/16/20 ) Functional Activities, Ea 15 (08/16/20 ) Exercise Therap, Ea 15 Min (08/16/20 ) Patient Visit (08/16/20 ) Exercise Therap, Ea 15 Min (08/16/20 ) Patient Visit (08/16/20 ) Speech Sound Lang Comp (08/16/20 ) Treat. Speech/Lang/Voice (08/16/20 ) Olanzapine Tablet (Zyprexa Tablet) (08/16/20 18:15) Haloperidol Injection (Haldol Injectio (08/16/20 18:15) Ziprasidone Injection (Geodon Injection) (08/16/20 18:15) Lorazepam Injection (Ativan Injection) (08/16/20 18:15) Catheter(Urinary) Insert & Ass 03,15 (08/16/20 18:30) Catheter(Urinary) Care .0300, 1500 (08/16/20 18:30) Ceftriaxone For Iv Use (Rocephin For I (08/17/20 06:30) Cbc With Automated Diff (08/17/20 05:03) Comprehensive Metabolic Panel (08/17/20 05:03) Lactic Acid Analyzer (08/17/20 05:03) Procalcitonin (Pct) (08/17/20 05:03) Olanzapine Tablet (Zyprexa Tablet) (08/17/20 21:00) Rehab Nursing Orders: Ongoing Assess. of Cognitive Status, Ongoing Assess. of Function Status, Bladder Management, Bladder Scan, Bladder Training, Bowel Management, Bowel Training, Disease Management & Educaiton, DVT Prophylaxis, Fall Prevention, Fluid/Electrolyte/Nutrition Mgmt, Infection Prevention, Medication Management & Education, Management of Risks & Complications, Management of Skin Intergrity, Nutrition Management, Pain Management, Patient/Family Support, Safety Management Intensity of Therapy to be met Patient to be seen: Min.3h per day/5 of 7d PT IPOC Problem List: Activity Tolerance, Functional Strength, Safety, Balance, Gait, Transfer, Bed Mobility, ROM Treatment Plan: Continue Plan of Care Bed Mobility, Education, Functional Activity Sallie, Functional Strength, Group Therapy, Gait, Safety, Therapeutic Exercise, Transfers Treatment Duration: Sep 05, 2020 Frequency: At least 5 of 7 days/Wk (IRF) Estimated Hrs Per Day: 1.5 hours per day OT IPOC Problems: Decreased Activ Tolerance, Decreased UE Strength, Dependent Transfers, Impaired Bed Mobility, Impaired Funct Balance, Impaired I ADL's, Impaired Self-Care Skills, Restricted Funct UE ROM OT Treatment, Training and Edu: Yes Plan of Care: ADL Retraining, Functional Mobility, Group Exercise/Act as Ind, UE Funct Exercise/Act Treatment Duration: Sep 05, 2020 Frequency: At least 5 of 7 days/Wk (IRF) Estimated Hrs Per Day: 1.[address] IPOC Speech Therapy Treatment Plan: Continue Plan of Care Treatment Duration: Aug 16, 2020 Frequency: 3 times per week Estimated Hrs Per Day: Other Network Management Specialist/Case Mgmt Network Management Specialist/Case Managemen: Discharge Planning Dietitian/Protective Services Officer Dietitian/Protective Services Officer to monitor nutritional status and make changes and/or recommendations as needed and work with speech pathology on dietary upgrades as the occur. Physician IPOC Medical Issues being managed closely and that require the 24 hour availability of a physician: Recent cardiac dysfunction and volume overload and new dx of dementia with increased confusion will require close monitoring for decompensation Medical Issues: Bowel/Bladder Function, DVT Prophylaxis, Falls Precautions, Fluid/Electrolyte/Nutrition Balance, Infection Protection, Pain Management Brief Synthesis of Preadmission Screen, Post-Admission Evaluation, and Therapy Evaluations: PT OT ST will focus on regaining independence in ADL's and ambulation along with fall risk prevention Medical Prognosis: Guarded Anticipated Length of Stay: 10 days ELDA LUNA DO Aug 16, 2020 11:58
--- NOTE | 2020-08-16 11:58 | PM&R Progress Note ---
Subjective HPI/CC On Admission Date Seen by Provider: Aug 16, 2020 Time Seen by Provider: 11:00 Subjective/Events-last exam 08/16/20: Patient doing well Hgb 8.9 Iron level pending Urinary frequency noted No retention noted Remeron started for insomnia Had confusion at 1800 so started antipsychotics and placed dc SLUMS 17 Without his to compensate for him, since she is admitted acute, it is clear how declined he really is Review of Systems General: Fatigue, Malaise Genitourinary: Frequency Neurological: Weakness, Confusion Objective Exam Vital Signs Vital Signs Date Time Temp Pulse Resp B/P (MAP) Pulse Ox O2 Delivery O2 Flow Rate FiO2 08/17/20 01:00 80 08/16/20 21:01 Room Air 08/16/20 17:08 37.4 18 127/58 (81) 93 Capillary Refill : General Appearance: No Apparent Distress, WD/WN, Chronically ill, Obese HEENT: PERRL/EOMI, Normal ENT Inspection, Pharynx Normal Neck: Full Range of Motion, Normal Inspection, Non Tender, Supple, Carotid Bruit Respiratory: Chest Non Tender, Lungs Clear, No Accessory Muscle Use, No Respiratory Distress, Decreased Breath Sounds Cardiovascular: Regular Rate, Rhythm, No Edema, No Gallop, No JVD, No Murmur, Normal Peripheral Pulses Gastrointestinal: Normal Bowel Sounds, No Organomegaly, No Pulsatile Mass, Non Tender, Soft Back: Normal Inspection, No CVA Tenderness, No Vertebral Tenderness Extremity: Normal Capillary Refill, Normal Inspection, Normal Range of Motion, Non Tender, No Calf Tenderness, No Pedal Edema Neurologic/Psychiatric: Alert, Oriented x3, Abnormal Gait, Depressed Affect, Motor Weakness (generalized) Skin: Normal Color, Warm/Dry Lymphatic: No Adenopathy Results/Procedures Lab Patient resulted labs reviewed. FIM Transfers Therapy Code Descriptions/Definitions Functional [place] Measure: 0=Not Assessed/NA 4=Minimal Assistance 1=Total Assistance 5=Supervision or Setup 2=Maximal Assistance 6=Modified [place] 3=Moderate Assistance 7=Complete IndependenceSCALE: Activities may be completed with or without assistive devices. 2-Ywfyotzqhv-thchdwa completes the activity by him/herself with no assistance from a helper. 5-Set-up or Clean-up Assistance-helper sets up or cleans up; patient completes activity. [place] assists only prior to or following the activity. 4-Supervision or Touching Assistance-helper provides verbal cues and/or touching/steadying and/or contact guard assistance as patient completes activity. Assistance may be provided throughout the activity or intermittently. 3-Partial/Moderate Assistance-helper does LESS THAN HALF the effort. [place] lifts, holds or supports trunk or limbs, but provides less than half the effort. 2-Substantial/Maximal Assistance-helper does MORE THAN HALF the effort. [place] lifts or holds trunk or limbs and provides more than half the effort. 7-Zjgfafscw-cnkppa does ALL the effort. Patient does none of the effort to complete the activity. Or, the assistance of 2 or more helpers is required for the patient to complete the activity. If activity was not attempted, code reason: 7-Patient Refused. 9-Not Applicable-not attempted and the patient did not perform the activity before the current illness, exacerbation or injury. 10-Not Attempted due to Environmental Limitations-(lack of equipment, weather restraints, etc.). 88-Not Attempted due to Medical Conditions or Safety Concerns. Roll Left to Right (QC): 3 (mod) Sit to Lying (QC): 3 (min) Sit to Stand (QC): 3 Chair/Ohn-pa-Qopjc Xfer(QC): 3 (min) Car Transfer (QC): 3 (mod) Gait Training Does the Patient Walk?: Yes Distance: 8' Walk 10 feet (QC): 4 Walk 50 ft with 2 Turns(QC): 4 Walk 150 ft (QC): 88 Walking 10ft/uneven surface-QC: 88 Gait Persons Needed: 1 Gait Assistive Device: FWW Wheelchair Training Does the Pt Use a Wheelchair?: Yes Distance: 50' Wheel 50 ft with 2 turns (QC): 4 Wheel 150 ft (QC): 88 Type of Wheelchair: Manual Stair Training 1 Step (curb) (QC): 88 4 Steps (QC): 88 12 Steps (QC): 88 Balance Picking up an Object (QC): 88 ADL-Treatment Eating (QC): 4 (Per pt.) Oral Hygiene (QC): 7 ("I will do it tomorrow.") Shower/Bathe Self (QC): 2 (Overall, pt. requires max assist to shower. He r equires assistance with rear tanisha area, bilateral LE, and under left arm.) Upper Body Dressing (QC): 3 (Min assist) Lower Body Dressing (QC): 3 (Mod assist. Pt. is max for donning brief and pants over feet up to thighs. Therapy assists with standing, and pt. is able to assist donning over hips. Therapy dons over hips the rest of the way.) On/Off Footwear (QC): 2 Toileting Hygiene (QC): 7 Assessment/Plan Assessment and Plan Assess & Plan/Chief Complaint Assessment: Ventricular arrhythmia A fib new onset OAC new HTN Lupus Obesity Urinary retention since dc DC Pneumonitis CRI Dementia SLUMS Plan: Monitor closely Cardiology appreciated Monitor creat Urinary retention management 08/16/20: Dc cath Monitor closely Anti-psychotics (1) Ventricular arrhythmia (2) Pneumonitis (3) Knee pain, right (4) Atrial fibrillation (5) Falls frequently (6) Urinary retention (7) Lupus Status: Chronic (8) Hypertension Status: Acute (9) Leg edema Status: Acute (10) Renal insufficiency Status: Acute ELDA LUNA DO Aug 16, 2020 11:58
--- NOTE | 2020-08-16 12:03 | Occupational Ther Daily Note ---
OT Current Status-Daily Note Subjective No pain reported. Appearance Pt. up in chair. He is asleep but wakes up easily. Mental Status/Objective Patient Orientation: Person, Place ADL-Treatment Therapy Code Descriptions/Definitions Functional [place] Measure: 0=Not Assessed/NA 4=Minimal Assistance 1=Total Assistance 5=Supervision or Setup 2=Maximal Assistance 6=Modified [place] 3=Moderate Assistance 7=Complete IndependenceSCALE: Activities may be completed with or without assistive devices. 6-Vdlgyfzwfw-cmjszhy completes the activity by him/herself with no assistance from a helper. 5-Set-up or Clean-up Assistance-helper sets up or cleans up; patient completes activity. [place] assists only prior to or following the activity. 4-Supervision or Touching Assistance-helper provides verbal cues and/or t ouching/steadying and/or contact guard assistance as patient completes activity. Assistance may be provided throughout the activity or intermittently. 3-Partial/Moderate Assistance-helper does LESS THAN HALF the effort. [place] lifts, holds or supports trunk or limbs, but provides less than half the effort. 2-Substantial/Maximal Assistance-helper does MORE THAN HALF the effort. [place] lifts or holds trunk or limbs and provides more than half the effort. 6-Zghrwngre-jwbymt does ALL the effort. Patient does none of the effort to complete the activity. Or, the assistance of 2 or more helpers is required for the patient to complete the activity. If activity was not attempted, code reason: 7-Patient Refused. 9-Not Applicable-not attempted and the patient did not perform the activity before the current illness, exacerbation or injury. 10-Not Attempted due to Environmental Limitations-(lack of equipment, weather restraints, etc.). 88-Not Attempted due to Medical Conditions or Safety Concerns. Oral Hygiene (QC): 7 (Pt. declines brushing teeth or putting dentures in this date.) Lower Body Dressing (QC): 3 (Mod assist. Pt. able to doff brief and shorts over hips while standing, and off feet while sitting with min assist. Requires assistance to don fresh ones over feet. Once he stands, he can don them with min assist to don in back.) On/Off Footwear: 2 Toileting Hygiene (QC): 3 (Pt. is incontinent of urine in shorts. He is aware, and is able to assist with clean up and changing his clothing.) Other Treatment Pt. requests to see spouse in ICU. This is confirmed with both his nurse, and his spouse's nurse. Pt. verbalizes that he was incontinent in shorts prior to transfer. Pt. is able to stand with walker with min assist, and assist in changing/cleaning self. After this task, pt. is taken to ICU. He is able to assist with wheelchair propulsion in small increments. Pt. is able to see spouse and conversate for approximately 10 minutes, with encouragement that she is looking and feeling better. This seemed very therapeutic to self for pt. Pt. brought back to rehab unit via wheelchair, and dons 1 lb. wrist weights. Pt. completes UE task with reaching/alternating hands for overall increased gross motor strength in UE. Tolerated well. Pt. taken back to room and transfers to reclining chair with min assist. All needs met. Education OT Patient Education: Correct positioning, Exercise program, Modified ADL techniques, Progress toward Goal/Update tx plan, Purpose of tx/functional activities, Reviewed precautions, Rehab process, Transfer techniques Teaching Recipient: Patient, Family Teaching Methods: Demonstration, Discussion Response to Teaching: Verbalize Understanding, Return Demonstration, Reinforcement Needed OT Short Term Goals Short Term Goals Time Frame: Aug 22, 2020 Eatin Oral hygiene: 4 Toileting hygiene: 3 Shower/bathe self: 3 Upper body dressin Lower body dressin Putting on/taking off footwear: 3 (With AE) OT Half-Way Goals Half-Way Goals Time Frame: Sep 05, 2020 Eating (QC): 6 Oral Hygiene (QC): 6 Toileting Hygiene (QC): 6 Shower/Bathe Self (QC): 4 Upper Body Dressing (QC): 6 Lower Body Dressing (QC): 4 On/Off Footwear (QC): 4 Additional Goals: 1-Demonstrate ADL Tasks, 2-Verbalize Understanding, 3- ImproveStrength/Sallie 1=Demonstrate adherence to instructed precautions during ADL tasks. 2=Patient will verbalize/demonstrate understanding of assistive devices/modifications for ADL. 3=Patient will improve strength/tolerance for activity to enable patient to perform ADL's. OT Education/Plan Problem List/Assessment Assessment: Decreased Activ Tolerance, Decreased UE Strength, Dependent Transfers, Impaired I ADL's, Impaired Self-Care Skills Discharge Recommendations Plan/Recommendations: Continue POC Therapy Discharge Recommendati: Post Acute OT Equpiment Recommendations-D/C: Hip Kit Treatment Plan/Plan of Care Treatment,Training & Education: Yes Patient would benefit from OT for education, treatment and training to promote independence in ADL's, mobility, safety and/or upper extremity function for ADL's. Plan of Care: ADL Retraining, Functional Mobility, Group Exercise/Act as Ind, UE Funct Exercise/Act Treatment Duration: Sep 05, 2020 Frequency: At least 5 of 7 days/Wk (IRF) Estimated Hrs Per Day: 1.5 hours per day Agreement: Yes Rehab Potential: Fair Time/GCodes Start Time: 10:00 Stop Time: 11:00 Total Time Billed (hr/min): 60 Billed Treatment Time 1, ADL x 15minutes, FA x 45minutes TASH PASCUAL OT Aug 16, 2020 12:03
[2020-08-16] MEDS: HYDROXYCHLOROQUINE 200 MG (PLAQUENIL) TAB PO SCH (13:18)
--- NOTE | 2020-08-16 13:50 | ST Cognitive Linguistic Eval ---
Speech Evaluation-General Medical Diagnosis Ventricular Tachycardia Onset Date: Aug 13, 2020 Therapy Diagnosis Therapy Diagnosis: Cognitive communication Precautions Precautions: Fall Precautions/Isolations: Standard Precautions Referral Referring Physician: Dr. Self Medical History Pertinent Medical History: HTN, Renal Insufficiency Reviewed History: Yes Social History Current Living Status: Spouse Speech PLF-Current Status Prior Level of Function Pt. lives in the home with his spouse where he was independent for most of his daily needs. Subjective Pt. was pleasant and cooperative with the cognitive assessment. Language Eval: Auditory Comprehends Simple Yes/No Ques: Functional Indent/Objects Multiple [place]: Functional Ident/Pics in Multiple [place]ne[place]: Functional Follows 1-Step Commands: Mild Follows Complex Directions: Moderate Follows General Conversations: Mild Language Eval: Verbal Language Completes Spontaneous Greeting: Functional Produces Auto, Serial Info: Functional Imitates Simple Words/Phrases: Functional Word Finding: Functional Requests Basic Needs: Functional States Basic Personal Info: Mild Expresses Complex Ideas: Mild Objective Cognitive Domain Attention: WNL Memory: Moderate Problem Solving: Mild Executive Functions: Mild Visuospatial Skills: Mild Composite Severity Rating: Moderate Objective Formal/Standardized Tests [facility] Status ([facility]) Results 17/30, moderate dementia range of function Oral Motor/Speech Production Pt presents with 75-80% intelligibility due to mildly slurred and fast speech. Impression Pt is a pleasant 80 y/o man who was admitted to ARU following fall with injury. Pt states he has had previous falls. Pt was given the SLUMS with a score of 17/30 obtained. This score is within the moderate dementia range of function. Pt's range of function indicates the need for ST skilled services. ST will focus on safety and cognitive improvement so that he can return home safer. Speech Patient Assess Expression of Ideas/Wants: Frequently (2) Understanding Verbal Content: Usually Understands (3) Brief Interview-Mental Status: Yes Repetition of Three Words: Three (3) Temporal Orientation: Year: Correct (3) Temporal Orientation: Month: Accurate within 5 days(2) Temporal Orientation: Day: Correct (1) Recall : Wear to say "Sock": Yes, no cue required (2) Recall : Color: Yes, no cue required (2) Recall : Bed: Yes, no cue required (2) Memory/Recall Ability: Current season, That he or she is in a hsp/hsp unit Speech Short Term Goals Short Term Goals Short Term Goals Pt will complete memory tasks related to daily needs at 80% or greater with minimal cues. Pt will complete safety awareness tasks related to daily needs at 80% or greater with minimal cues. Pt will complete problem solving tasks related to daily needs at 80% or greater with minimal cues. Speech Rotor Balancer Goals Correction Goals Pt will improve cognitive communication abilities so that he can complete daily tasks with minimal assist. Speech-Plan Patient/Family Goals Patient/Family Goals: Pt plans to return home where he lives with his with good family support nearby. Treatment Plan Speech Therapy Treatment Plan: Continue Plan of Care Treatment Duration: Aug 31, 2020 Frequency: 4 times per week (Pt will recieve skilled ST 4-5 times per week) Estimated Hrs Per Day: .5 hour per day Rehab Potential: Fair Barriers to Learning: Cognitive deficits, age, and medical status. Pt/Family Agrees to Plan: Yes Safety Risks/Education Teaching Recipient: Patient Teaching Methods: Discussion Response to Teaching: Verbalize Understanding Education Topics Provided: Safety and communication Time Speech Therapy Time In: 11:00 Speech Therapy Time Out: 11:30 Total Billed Time: 30 Billed Treatment Time 1, JIGNA DAI B[facility] ST Aug 16, 2020 13:50
--- NOTE | 2020-08-16 14:37 | Occupational Ther Daily Note ---
OT Current Status-Daily Note Subjective No pain reported. Appearance Pt. up in chair. Agrees to work with OT. Mental Status/Objective Patient Orientation: Person, Place ADL-Treatment Therapy Code Descriptions/Definitions Functional [place] Measure: 0=Not Assessed/NA 4=Minimal Assistance 1=Total Assistance 5=Supervision or Setup 2=Maximal Assistance 6=Modified [place] 3=Moderate Assistance 7=Complete IndependenceSCALE: Activities may be completed with or without assistive devices. 5-Nkmrdvyntq-uqwqpht completes the activity by him/herself with no assistance from a helper. 5-Set-up or Clean-up Assistance-helper sets up or cleans up; patient completes activity. [place] assists only prior to or following the activity. 4-Supervision or Touching Assistance-helper provides verbal cues and/or touching/steadying and/or contact guard assistance as patient completes activity. Assistance may be provided throughout the activity or intermittently. 3-Partial/Moderate Assistance-helper does LESS THAN HALF the effort. [place] lifts, holds or supports trunk or limbs, but provides less than half the effort. 2-Substantial/Maximal Assistance-helper does MORE THAN HALF the effort. [place] lifts or holds trunk or limbs and provides more than half the effort. 5-Aikslyice-ivxcpt does ALL the effort. Patient does none of the effort to complete the activity. Or, the assistance of 2 or more helpers is required for the patient to complete the activity. If activity was not attempted, code reason: 7-Patient Refused. 9-Not Applicable-not attempted and the patient did not perform the activity before the current illness, exacerbation or injury. 10-Not Attempted due to Environmental Limitations-(lack of equipment, weather restraints, etc.). 88-Not Attempted due to Medical Conditions or Safety Concerns. On/Off Footwear: 3 (With AE. Please see note.) Other Treatment Pt. seen in room. OT brought in adaptive equipment for LE dressing. Pt. educated on dressing stick, sock aide, and manufacturing engineering technician. Pt. shown how to doff slipper socks with dressing stick, retrieve socks with manufacturing engineering technician, and don socks with sock aide. Pt. is able to doff slipper socks with min assist and cues. He is able to retrieve socks with cues. OT assists pt. to put socks onto socks aide, and to put sock aide on floor. Pt. is able to put feet into sock aide, but requires max assist and cues to pull them on correctly. Pt. had difficulty pulling in correct position. All needs met up in chair. Education OT Patient Education: Correct positioning, Modified ADL techniques, Progress toward Goal/Update tx plan, Purpose of tx/functional activities, Reviewed precautions, Rehab process Teaching Recipient: Patient Teaching Methods: Demonstration, Discussion Response to Teaching: Verbalize Understanding, Return Demonstration, Reinforcement Needed OT Short Term Goals Short Term Goals Time Frame: Aug 22, 2020 Eatin Oral hygiene: 4 Toileting hygiene: 3 Shower/bathe self: 3 Upper body dressin Lower body dressin Putting on/taking off footwear: 3 (With AE) OT Warehouse Puller Goals Longterm Goals Time Frame: Sep 05, 2020 Eating (QC): 6 Oral Hygiene (QC): 6 Toileting Hygiene (QC): 6 Shower/Bathe Self (QC): 4 Upper Body Dressing (QC): 6 Lower Body Dressing (QC): 4 On/Off Footwear (QC): 4 Additional Goals: 1-Demonstrate ADL Tasks, 2-Verbalize Understanding, 3- ImproveStrength/Sallie 1=Demonstrate adherence to instructed precautions during ADL tasks. 2=Patient will verbalize/demonstrate understanding of assistive devices/modifications for ADL. 3=Patient will improve strength/tolerance for activity to enable patient to perform ADL's. OT Education/Plan Problem List/Assessment Assessment: Decreased Activ Tolerance, Impaired I ADL's, Impaired Self-Care Skills Discharge Recommendations Plan/Recommendations: Continue POC Therapy Discharge Recommendati: Post Acute OT Treatment Plan/Plan of Care Treatment,Training & Education: Yes Patient would benefit from OT for education, treatment and training to promote independence in ADL's, mobility, safety and/or upper extremity function for AD L's. Plan of Care: ADL Retraining, Functional Mobility, Group Exercise/Act as Ind, UE Funct Exercise/Act Treatment Duration: Sep 05, 2020 Frequency: At least 5 of 7 days/Wk (IRF) Estimated Hrs Per Day: 1.5 hours per day Agreement: Yes Rehab Potential: Fair Time/GCodes Start Time: 13:00 Stop Time: 13:15 Total Time Billed (hr/min): 15 Billed Treatment Time 1, ADL TASH PASCUAL OT Aug 16, 2020 14:37
[2020-08-16 17:08] VITALS: BP 127/58
[2020-08-16] MEDS ORDERED: LORazepam INJ 2 MG/ML (ATIVAN) VIAL IVP PRN (18:15)
[2020-08-16] MEDS ORDERED: ZIPRASIDONE 20 MG INJ (GEODON) VIAL IM PRN (18:15)
[2020-08-16] MEDS ORDERED: OLANZapine 5 MG (ZyPREXA) TAB PO SCH (18:15)
[2020-08-16] MEDS ORDERED: HALOPERIDOL 5 MG/ML (HALDOL) VIAL IM PRN (18:15)
[2020-08-16] MEDS: TAMSULOSIN 0.4 MG (FLOMAX) CAP PO SCH (20:29)
[2020-08-16] MEDS: MIRTAZAPINE 15 MG (REMERON) TAB PO SCH (20:30)
[2020-08-16] MEDS: LATANOPROST 0.005% (XALATAN) OPHTH SOLN 2.5 ML OU SCH (20:32)
[2020-08-16] MEDS: IBUPROFEN TABLET 200 MG TAB PO PRN (23:15)
[2020-08-17] MEDS: cefTRIAXone FOR IV USE 1,000 MG in WATER (STERILE) FOR INJECTION 10 ML IV SCH (05:35)
[2020-08-17] MEDS: CATHETER FLUSH 10 ML SYR IV SCH ×3 (05:35→21:38)
[2020-08-17 05:54] VITALS: BP 154/68
[2020-08-17] MEDS: VENlafaxine XR 75 MG (EFFEXOR XR) CAP PO SCH (06:06)
[2020-08-17 06:12] LABS: BASOPHILS % (AUTO) 1 % (0-10); EOSINOPHILS # (AUTO) 0.3 10^3/uL (0.0-0.3); EOSINOPHILS % (AUTO) 4 % (0-10); HEMATOCRIT 28 % (40-54); HEMOGLOBIN 8.7 g/dL (13.3-17.7); LYMPHOCYTES # (AUTO) 0.9 10^3/uL (1.0-4.0); LYMPHOCYTES % (AUTO) 12 % (12-44); MEAN CORPUSCULAR HEMOGLOBIN 29 pg (25-34); MEAN CORPUSCULAR HGB CONC 31 g/dL (32-36); MEAN CORPUSCULAR VOLUME 91 fL (80-99); MONOCYTES # (AUTO) 0.8 10^3/uL (0.0-1.0); MONOCYTES % (AUTO) 11 % (0-12); NEUTROPHILS # (AUTO) 4.9 10^3/uL (1.8-7.8); NEUTROPHILS % (AUTO) 71 % (42-75); PLATELET COUNT 175 10^3/uL (130-400); WHITE BLOOD COUNT 6.9 10^3/uL (4.3-11.0)
[2020-08-17 06:30] LABS: ALBUMIN 3.1 GM/DL (3.2-4.5); CHLORIDE 105 MMOL/L (98-107); POTASSIUM 3.4 MMOL/L (3.6-5.0); SODIUM 136 MMOL/L (135-145)
[2020-08-17 06:33] LABS: GLUCOSE 91 MG/DL (70-105)
[2020-08-17 06:34] LABS: CARBON DIOXIDE 21 MMOL/L (21-32)
[2020-08-17 06:35] LABS: BILIRUBIN,TOTAL 0.8 MG/DL (0.1-1.0)
[2020-08-17 06:36] LABS: ALKALINE PHOSPHATASE 46 U/L (40-136)
[2020-08-17 06:37] LABS: CREATININE SERUM 1.02 MG/DL (0.60-1.30); GFR ESTIMATED > 60
[2020-08-17 06:38] LABS: BUN/CREATININE RATIO 17
[2020-08-17 06:39] LABS: ALANINE AMINOTRANSFERASE 19 U/L (0-55)
[2020-08-17] MEDS: DOCUSATE SODIUM 100 MG (COLACE) CAP PO SCH ×2 (09:00→20:55)
[2020-08-17] MEDS: SENNA W/DOCUSATE (SENOKOT S) TABLET PO SCH ×2 (09:00→20:55)
[2020-08-17] MEDS: polyethylene glycoL POWDER 17 GM (MIRALAX) PACK PO SCH ×2 (09:00→20:55)
[2020-08-17 10:00] VITALS: BP 148/68
[2020-08-17] MEDS: APIXABAN 5 MG (ELIQUIS) TABLET PO SCH ×2 (10:02→20:47)
[2020-08-17] MEDS: AMIODARONE 200 MG (CORDARONE) TAB PO SCH ×2 (10:03→20:46)
[2020-08-17] MEDS: BUMETANIDE 1 MG (BUMEX) TAB PO SCH (10:03)
--- NOTE | 2020-08-17 10:34 | Occupational Ther Daily Note ---
OT Current Status-Daily Note Subjective Pt asleep this am. Nursing states was given sleep medication. OT moves time from [id number], pt drowsy through session, though agrees to tx. Pt completes ADLs in bed/ ther ex in bed during first 30 min session. OT/ PT co-treat [id number] to work towards safe/ higher level tasks. OT addresses UE/ problem solving/ ADL tasks while PT addresses gait/ambulation/ transfers. Pt becomes more alert through session. Mental Status/Objective Patient Orientation: Person, Place, Situation ADL-Treatment Therapy Code Descriptions/Definitions Functional [place] Measure: 0=Not Assessed/NA 4=Minimal Assistance 1=Total Assistance 5=Supervision or Setup 2=Maximal Assistance 6=Modified [place] 3=Moderate Assistance 7=Complete IndependenceSCALE: Activities may be completed with or without assistive devices. 3-Yeifkawxje-rakszhn completes the activity by him/herself with no assistance from a helper. 5-Set-up or Clean-up Assistance-helper sets up or cleans up; patient completes activity. [place] assists only prior to or following the activity. 4-Supervision or Touching Assistance-helper provides verbal cues and/or touching/steadying and/or contact guard assistance as patient completes activity. Assistance may be provided throughout the activity or intermittently. 3-Partial/Moderate Assistance-helper does LESS THAN HALF the effort. [place] lifts, holds or supports trunk or limbs, but provides less than half the effort. 2-Substantial/Maximal Assistance-helper does MORE THAN HALF the effort. [place] lifts or holds trunk or limbs and provides more than half the effort. 1-Bihcgubhp-bmpqxu does ALL the effort. Patient does none of the effort to complete the activity. Or, the assistance of 2 or more helpers is required for the patient to complete the activity. If activity was not attempted, code reason: 7-Patient Refused. 9-Not Applicable-not attempted and the patient did not perform the activity before the current illness, exacerbation or injury. 10-Not Attempted due to Environmental Limitations-(lack of equipment, weather restraints, etc.). 88-Not Attempted due to Medical Conditions or Safety Concerns. Eating (QC): 3 (min A due to decreased alertness and SBA during this task.) Oral Hygiene (QC): 7 Bathing Location: L Arm, R Arm, L Upper Leg, R Upper Leg, Chest, Abdomen, Perineal Area Shower/Bathe Self (QC): 3 (mod A for bottom/ LE and back care. Sponge bath, EOB. Requires CGA to min A for righting to center (leans to L) during session.) Upper Body Dressing (QC): 3 (min A doffing, mod A donning with increased time (pt able to thread, requires assist overhead and pulling over abdomen/ back once over shoulders.) Lower Body Dressing (QC): 2 (max A- threaded BLE with max A, pt able to mold puller knees and mold puller hips with mod A and CGA in stance.) On/Off Footwear: 1 (States did not compelte at home.) Toileting Hygiene (QC): 3 (mod A (bottom care) and pt completes tanisha care in stance with CGA.) Other Treatment [id number]: Pt completes face hygiene with s/u, denies oral care, completes drink with min A for support to face. Pt completes 10 reps of the following for UE strengthening/ stretching in bed: shoulder flexion (~90*), abduction, elbow flexion and sponge squeezes with red therapy sponge. Pt requires cues for attn due to decreased alertness and eyes drooping. Pt is educated on co-treat later for extra support, agrees to sponge bath. Left in bed with all needs met, call light in reach. [id number]: OT/ PT co-treat. Pt completes bed mob with increased time and mod A to EOB. pt completes sponge bath/ dressing EOB as outlined. Pt edcuated on use of AE, though states he has not been using. Sit to stand with increasing IND/ safety through session (min A to SBA) to walker level. Completes stance with cues for upright posture, tends to lean forward and corrects with cues. Pt completes standing balance task with OT/ PT with CGA throughout, no LOB. Decreased LUE shoulder flexion/ ext rotation due to prior damage, increased reaching with RUE. Pt ambulates back to room with w/c to follow. Pt remains in w/c for eating purposes. Pt in room with daughter present end of session. Education OT Patient Education: Correct positioning, Exercise program, Home exercise program, Progress toward Goal/Update tx plan, Purpose of tx/functional activities, Transfer techniques, Use of adapted equipment Teaching Recipient: Patient Teaching Methods: Demonstration, Discussion Response to Teaching: Verbalize Understanding, Return Demonstration OT Short Term Goals Short Term Goals Time Frame: Aug 22, 2020 Eatin Oral hygiene: 4 Toileting hygiene: 3 Shower/bathe self: 3 Upper body dressin Lower body dressin Putting on/taking off footwear: 3 (With AE) OT Jail Goals Jail Goals Time Frame: Sep 05, 2020 Eating (QC): 6 Oral Hygiene (QC): 6 Toileting Hygiene (QC): 6 Shower/Bathe Self (QC): 4 Upper Body Dressing (QC): 6 Lower Body Dressing (QC): 4 On/Off Footwear (QC): 4 Additional Goals: 1-Demonstrate ADL Tasks, 2-Verbalize Understanding, 3- ImproveStrength/Sallie 1=Demonstrate adherence to instructed precautions during ADL tasks. 2=Patient will verbalize/demonstrate understanding of assistive devices/modifications for ADL. 3=Patient will improve strength/tolerance for activity to enable patient to perform ADL's. OT Education/Plan Problem List/Assessment Assessment: Decreased Activ Tolerance, Decreased UE Strength, Dependent Transfers, Impaired Cognition, Impaired Funct Balance, Impaired I ADL's, Impaired Self-Care Skills Discharge Recommendations Plan/Recommendations: Continue POC Therapy Discharge Recommendati: Home & Family, Post Acute OT Treatment Plan/Plan of Care Treatment,Training & Education: Yes Patient would benefit from OT for education, treatment and training to promote independence in ADL's, mobility, safety and/or upper extremity function for ADL's. Plan of Care: ADL Retraining, Functional Mobility, Group Exercise/Act as Ind, UE Funct Exercise/Act Treatment Duration: Sep 05, 2020 Frequency: At least 5 of 7 days/Wk (IRF) Estimated Hrs Per Day: 1.5 hours per day Agreement: Yes Rehab Potential: Fair Time/GCodes Start Time: 10:00 (1100) Stop Time: 10:30 (1200) Total Time Billed (hr/min): 90 Billed Treatment Time [id number]: 1, ADL, EX (30) [id number]: 1, ADL 2, EX 2 (60): OT/ PT co-treat [id number] to work towards safe/ higher level tasks. OT addresses UE/ problem solving/ ADL tasks while PT addresses gait/ambulation/ transfers Total: 90 DION SORIANO OTR Aug 17, 2020 10:34
--- NOTE | 2020-08-17 11:59 | Physical Therapy Daily Note ---
PT Daily Note-Current Subjective Patient reports no pain pre tx, is very tired secondary from taking medication the previous night to help him sleep. Patient consented to therapy. Mental Status Patient Orientation: Person, Confused, Place Attachments: [place] Catheter Transfers SCALE: Activities may be completed with or without assistive devices. 4-Lyzvkwrcmg-trugatm completes the activity by him/herself with no assistance from a helper. 5-Set-up or Clean-up Assistance-helper sets up or cleans up; patient completes activity. [place] assists only prior to or following the activity. 4-Supervision or Touching Assistance-helper provides verbal cues and/or touching/steadying and/or contact guard assistance as patient completes activity. Assistance may be provided throughout the activity or intermittently. 3-Partial/Moderate Assistance-helper does LESS THAN HALF the effort. [place] lif ts, holds or supports trunk or limbs, but provides less than half the effort. 2-Substantial/Maximal Assistance-helper does MORE THAN HALF the effort. [place] lifts or holds trunk or limbs and provides more than half the effort. 0-Dqundqjby-rdwlmk does ALL the effort. Patient does none of the effort to complete the activity. Or, the assistance of 2 or more helpers is required for the patient to complete the activity. If activity was not attempted, code reason: 7-Patient Refused. 9-Not Applicable-not attempted and the patient did not perform the activity before the current illness, exacerbation or injury. 10-Not Attempted due to Environmental Limitations-(lack of equipment, weather restraints, etc.). 88-Not Attempted due to Medical Conditions or Safety Concerns. Roll Left & Right (QC): 3 Sit to Lying (QC): 3 Lying to Sitting/Side of Bed(Q: 3 Sit to Stand (QC): 4 Chair/Wls-lz-Lpcgx Xfer(QC): 4 Johnathan Weight Bearing Full Weight Bearing Full Weight Bearing Gait Training Does the Patient Walk?: Yes Distance: 100' x2 Walk 10 feet (QC): 3 Walk 50 ft with 2 Turns(QC): 3 Gait Assistive Device: FWW Min assist to CGA with gait. Patient requires min assistance occassionally with gait as he starts to "melt". Cues to stand up straight and keep the walker close to his body helps patient maintain control, and although his pace slows he requires less assistance with a more upright posturing. Neuromuscular Balance activities that targeted standing static balance with UE reaching for objects to initiate typical functional mobility with ADLs Treatments Co treated with OT today due to patients fall risk with moderate sleepiness, decreased functional mobility, and impaired functional endurance. PT focused on transfers while OT directed ADLs, PT also worked on static and dynamic sitting and standing balance, and gait training, while OT improved UE reach, coordination, and energy conservation with balance challenging activities. Assessment Current Status: Fair Progress Patient demonstrated considerable improvement in sit <-> stand transfer. Patient required only CGA with sit <-> stand, and was able to make a smooth transition without needing instructional cues to push up from chair. Furthermore, patient did not demonstrate any "plopping" with descent, and was able to maintain good control through entire motion. PT Short Term Goals Short Term Goals Time Frame: Aug 22, 2020 Roll Left & Right: 4 (SBA) Sit to lyin (SBA) Lying to sitting on side of be: 4 (SBA) Sit to stand: 4 (SBA) Chair/vnu-zq-aszyo transfer: 4 (SBA) Toilet transfer: 4 (SBA) Car transfer: 4 (SBA) Walk 10 feet: 4 (CGA) Walk 50 feet with two turns: 4 (CGA) Walk 150 feet: 4 (CGA) Walking 10ft on uneven surface: 3 (min) 1 step (curb): 3 (min) Does pt use a wc or scooter: Yes Wheel 50ft w/2 turns: 4 (SBA) Wheel 150 feet: 4 (SBA) Type: Manual PT Snf Goals Shoe Treer Goals PT Shoe Treer Goals Time Frame: Sep 05, 2020 Roll Left & Right (QC): 5 Sit to Lying (QC): 5 Lying-Sitting on Side/Bed(QC): 5 Sit to Stand (QC): 5 Chair/Jxi-yp-Updxr Xfer(QC): 5 Toilet Transfer (QC): 5 Car Transfer (QC): 5 Does the Patient Walk: Yes Walk 10 feet (QC): 5 Walk 50ft with 2 Turns (QC): 5 Walk 150 ft (QC): 5 Walking 10ft on Uneven Surface: 5 1 Step (curb) (QC): 5 4 Steps (QC): 5 12 Steps (QC): 9 Picking up an Object (QC): 5 Does the Pt use WC or Scooter?: No Wheel 50 feet with 2 turns (QC: 5 Type: Manual Wheel 150 feet: 5 Type: Manual PT Plan Problem List Problem List: Activity Tolerance, Functional Strength, Safety, Balance, Gait, Transfer, Bed Mobility, ROM Treatment/Plan Treatment Plan: Continue Plan of Care Treatment Plan: Bed Mobility, Education, Functional Activity Sallie, Functional Strength, Group Therapy, Gait, Safety, Therapeutic Exercise, Transfers Treatment Duration: Sep 05, 2020 Frequency: At least 5 of 7 days/Wk (IRF) Estimated Hrs Per Day: 1.5 hours per day Patient and/or Family Agrees t: Yes Safety Risks/Education Patient Education: Gait Training, Transfer Techniques, Correct Positioning, W/C Management, Safety Issues Teaching Recipient: Patient Teaching Methods: Demonstration, Discussion Response to Teaching: Verbalize Understanding, Return Demonstration, Reinforcement Needed Time/GCodes Time In: 1100 Time Out: 1200 Total Billed Treatment Time: 60 Total Billed Treatment 1 visit: FA x3: 45' EX: 15' JIMENEZ HOBSON PT Aug 17, 2020 11:59
--- NOTE | 2020-08-17 12:04 | Cardiology Progress Note ---
Subjective Date Seen by Provider: Aug 17, 2020 Time Seen by Provider: 12:03 Subjective/Events-last exam Patient was seen during physical therapy session, feeling well. No new complaint Review of Systems General: No Chills, No Night Sweats; Fatigue, Malaise; No Appetite, No Other HEENT: No Head Aches, No Visual Changes, No Eye Pain, No Ear Pain, No Dysphasia, No Sinus Congestion, No Post Nasal Drip, No Sore Throat, No Other Pulmonary: No Dyspnea, No Cough, No Pleuritic Chest Pain, No Other Cardiovascular: No: Chest Pain, Palpitations, Orthopnea, Paroxysmal Noc. Dyspnea, Edema, Lt Headedness, Other Focused Exam Lactate Level 08/17/20 05:39: Lactic Acid Level 0.77 Objective-Cardiology Exam Last Set of Vital Signs Vital Signs 08/17/20 08/17/20 05:54 10:00 Temp 36.4 Pulse 52 Resp 18 B/P (MAP) 148/68 (94) Pulse Ox 93 O2 Delivery Room Air Capillary Refill : I&O Intake and Output 08/17/20 00:00 Intake Total 1550 ml Balance 1550 ml Intake Oral 1550 ml # Voids 7 # Urine Diapers 7 # Bowel Movements 1 General: Alert, Oriented X3, Cooperative HEENT: Atraumatic, PERRLA Neck: Supple, No JVD, No Thyromegaly Lungs: Clear to Auscultation, Normal Air Movement Heart: Regular Rate, Normal S1, Normal S2, No Murmurs Abdomen: Normal Bowel Sounds, Soft, No Tenderness, No Hepatosplenomegaly, No Masses Extremities: No Clubbing, No Cyanosis, No Edema, Normal Pulses, No Ten derness/Swelling Neuro: Normal Speech, Cranial Nerves 3-12 NL Psych/Mental Status: Mental Status NL, Mood NL Results Lab Laboratory Tests 08/17/20 05:39 A/P-Cardiology Admission Diagnosis Wide-complex tachycardia PAF HTN Dizziness Assessment/Plan Status post wide-complex tachycardia, multiple episodes, frequent PVCs, symptomatic. most probably paroxysmal atrial fibrillation with aberrant conduction, started on amiodarone, Eliquis. Telemetry showing SR with PVCs, continue to monitor Mild elevation in troponin level, cardiac catheterization was carried out on August 13, 2020 showing heavily calcified coronary system with mild to moderate disease nonobstructive disease Dizziness and lightheadedness, near syncope secondary to tachycardia. Feeling better at this time Hypertension, mildly elevated, continue to monitor blood pressure Echocardiogram showed normal LV size and function, EF 60%, moderate mitral regurgitation, mild tricuspid regurgitation. Left atrial dilatation 5.1 cm. Generalized weakness, orthostatic dizziness and lightheadedness, unsteady gait, receiving physical and occupational therapy TERESA HU MD Aug 17, 2020 12:04 pm
[2020-08-17] MEDS: HYDROXYCHLOROQUINE 200 MG (PLAQUENIL) TAB PO SCH (12:16)
--- NOTE | 2020-08-17 12:17 | PM&R Progress Note ---
Subjective HPI/CC On Admission Date Seen by Provider: Aug 17, 2020 Time Seen by Provider: 12:15 Subjective/Events-last exam 08/17/20: Patient became confused at midnight Xanax 0.25mg caused a bit of oversedation Patient converted to NSR on Tely HR 50's SLUMS 17 terminal upstairs 08/16/20: Patient doing well Hgb 8.9 Iron level pending Urinary frequency noted No retention noted Remeron started for insomnia Had confusion at 1800 so started antipsychotics and placed dc SLUMS 17 Without his to compensate for him, since she is admitted acute, it is clear how declined he really is Review of Systems General: Fatigue, Malaise Neurological: Weakness Focused Exam Lactate Level 08/17/20 05:39: Lactic Acid Level 0.77 Objective Exam Vital Signs Vital Signs Date Time Temp Pulse Resp B/P (MAP) Pulse Ox O2 Delivery O2 Flow Rate FiO2 08/18/20 05:59 36.4 76 18 122/65 (84) 92 Room Air Capillary Refill : General Appearance: No Apparent Distress, WD/WN, Chronically ill, Obese HEENT: PERRL/EOMI, Normal ENT Inspection, Pharynx Normal Neck: Full Range of Motion, Normal Inspection, Non Tender, Supple, Carotid Bruit Respiratory: Chest Non Tender, Lungs Clear, No Accessory Muscle Use, No Respiratory Distress, Decreased Breath Sounds Cardiovascular: Regular Rate, Rhythm, No Edema, No Gallop, No JVD, No Murmur, Normal Peripheral Pulses Gastrointestinal: Normal Bowel Sounds, No Organomegaly, No Pulsatile Mass, Non Tender, Soft Back: Normal Inspection, No CVA Tenderness, No Vertebral Tenderness Extremity: Normal Capillary Refill, Normal Inspection, Normal Range of Motion, Non Tender, No Calf Tenderness, No Pedal Edema Neurologic/Psychiatric: Alert, Oriented x3, Abnormal Gait, Depressed Affect, Motor Weakness (generalized) Skin: Normal Color, Warm/Dry Lymphatic: No Adenopathy Results/Procedures Lab Patient resulted labs reviewed. FIM Transfers Therapy Code Descriptions/Definitions Functional [place] Measure: 0=Not Assessed/NA 4=Minimal Assistance 1=Total Assistance 5=Supervision or Setup 2=Maximal Assistance 6=Modified [place] 3=Moderate Assistance 7=Complete IndependenceSCALE: Activities may be completed with or without assistive devices. 4-Wrygohcxpp-fhlcfvl completes the activity by him/herself with no assistance from a helper. 5-Set-up or Clean-up Assistance-helper sets up or cleans up; patient completes activity. [place] assists only prior to or following the activity. 4-Supervision or Touching Assistance-helper provides verbal cues and/or touching/steadying and/or contact guard assistance as patient completes ac tivity. Assistance may be provided throughout the activity or intermittently. 3-Partial/Moderate Assistance-helper does LESS THAN HALF the effort. [place] lifts, holds or supports trunk or limbs, but provides less than half the effort. 2-Substantial/Maximal Assistance-helper does MORE THAN HALF the effort. [place] lifts or holds trunk or limbs and provides more than half the effort. 7-Ouweyybul-rujyxu does ALL the effort. Patient does none of the effort to complete the activity. Or, the assistance of 2 or more helpers is required for the patient to complete the activity. If activity was not attempted, code reason: 7-Patient Refused. 9-Not Applicable-not attempted and the patient did not perform the activity before the current illness, exacerbation or injury. 10-Not Attempted due to Environmental Limitations-(lack of equipment, weather restraints, etc.). 88-Not Attempted due to Medical Conditions or Safety Concerns. Roll Left to Right (QC): 4 Sit to Lying (QC): 4 Sit to Stand (QC): 4 Chair/Afp-du-Yuttg Xfer(QC): 4 Car Transfer (QC): 3 (mod) Gait Training Does the Patient Walk?: Yes Distance: 100' x2 Walk 10 feet (QC): 3 Walk 50 ft with 2 Turns(QC): 3 Walk 150 ft (QC): 88 Walking 10ft/uneven surface-QC: 88 Gait Persons Needed: 1 Gait Assistive Device: FWW Wheelchair Training Does the Pt Use a Wheelchair?: Yes Distance: 50' Wheel 50 ft with 2 turns (QC): 4 Wheel 150 ft (QC): 88 Type of Wheelchair: Manual Stair Training 1 Step (curb) (QC): 88 4 Steps (QC): 88 12 Steps (QC): 88 Balance Picking up an Object (QC): 88 ADL-Treatment Eating (QC): 3 (min A due to decreased alertness and SBA during this task.) Oral Hygiene (QC): 7 (Pt. declines brushing teeth or putting dentures in this d ate.) Shower/Bathe Self (QC): 2 (Overall, pt. requires max assist to shower. He requires assistance with rear tanisha area, bilateral LE, and under left arm.) Upper Body Dressing (QC): 3 (Min assist) Lower Body Dressing (QC): 3 (Mod assist. Pt. able to doff brief and shorts over hips while standing, and off feet while sitting with min assist. Requires assistance to don fresh ones over feet. Once he stands, he can don them with min assist to don in back.) On/Off Footwear (QC): 3 (With AE. Please see note.) Toileting Hygiene (QC): 3 (Pt. is incontinent of urine in shorts. He is aware, and is able to assist with clean up and changing his clothing.) Assessment/Plan Assessment and Plan Assess & Plan/Chief Complaint Assessment: Ventricular arrhythmia A fib new onset OAC new HTN Lupus Obesity Urinary retention since dc DC Pneumonitis CRI Dementia SLUMS Plan: Monitor closely Cardiology appreciated Monitor creat Urinary retention management 08/16/20: Dc cath Monitor closely Anti-psychotics 08/17/20: Monitor closely Cardiology appreciated (1) Ventricular arrhythmia (2) Pneumonitis (3) Knee pain, right (4) Atrial fibrillation (5) Falls frequently (6) Urinary retention (7) Lupus Status: Chronic (8) Hypertension Status: Acute (9) Leg edema Status: Acute (10) Renal insufficiency Status: Acute ELDA LUNA DO Aug 17, 2020 12:16
--- NOTE | 2020-08-17 13:16 | Physical Therapy Daily Note ---
PT Daily Note-Current Subjective Patient is in his 's room on the 4th floor, she is having medical issues and he is visiting her, he is ready to go back to his own room. Patient has no complaints of pain, is upset understandably. Appearance Patient in recliner post tx with nurse call, phone, tray, family in room, chair alarm on. Mental Status Patient Orientation: Person, Confused, Place Attachments: [place] Catheter Transfers SCALE: Activities may be completed with or without assistive devices. 2-Untfwkrdkr-ueyruqy completes the activity by him/herself with no assistance from a helper. 5-Set-up or Clean-up Assistance-helper sets up or cleans up; patient completes activity. [place] assists only prior to or following the activity. 4-Supervision or Touching Assistance-helper provides verbal cues and/or touching/steadying and/or contact guard assistance as patient completes activity. Assistance may be provided throughout the activity or intermittently. 3-Partial/Moderate Assistance-helper does LESS THAN HALF the effort. [place] lifts, holds or supports trunk or limbs, but provides less than half the effort. 2-Substantial/Maximal Assistance-helper does MORE THAN HALF the effort. [place] lifts or holds trunk or limbs and provides more than half the effort. 8-Wibsapzgb-fxauoa does ALL the effort. Patient does none of the effort to complete the activity. Or, the assistance of 2 or more helpers is required for the patient to complete the activity. If activity was not attempted, code reason: 7-Patient Refused. 9-Not Applicable-not attempted and the patient did not perform the activity before the current illness, exacerbation or injury. 10-Not Attempted due to Environmental Limitations-(lack of equipment, weather restraints, etc.). 88-Not Attempted due to Medical Conditions or Safety Concerns. Sit to Stand (QC): 4 Chair/Xaw-za-Rjwzl Xfer(QC): 4 cues to turn completely before sitting, cues for hand placement and proper positioning Weight Bearing Full Weight Bearing Full Weight Bearing Gait Training Distance: 5' Gait Persons Needed: 1 Gait Assistive Device: FWW CGA, slow, antalgic, ambulates a few feet from his WC to recliner Wheelchair Training attempted to have patient propel WC back to his room but he is very upset about his and declines Treatments transfers, ambulation Assessment Current Status: Fair Progress improving sit to stand and compliance with safety cues PT Short Term Goals Short Term Goals Time Frame: Aug 22, 2020 Roll Left & Right: 4 (SBA) Sit to lyin (SBA) Lying to sitting on side of be: 4 (SBA) Sit to stand: 4 (SBA) Chair/yhc-he-hmjzj transfer: 4 (SBA) Toilet transfer: 4 (SBA) Car transfer: 4 (SBA) Walk 10 feet: 4 (CGA) Walk 50 feet with two turns: 4 (CGA) Walk 150 feet: 4 (CGA) Walking 10ft on uneven surface: 3 (min) 1 step (curb): 3 (min) Does pt use a wc or scooter: Yes Wheel 50ft w/2 turns: 4 (SBA) Wheel 150 feet: 4 (SBA) Type: Manual PT Senior Living Goals Senior Living Goals PT Senior Living Goals Time Frame: Sep 05, 2020 Roll Left & Right (QC): 5 Sit to Lying (QC): 5 Lying-Sitting on Side/Bed(QC): 5 Sit to Stand (QC): 5 Chair/Foq-ef-Hgpii Xfer(QC): 5 Toilet Transfer (QC): 5 Car Transfer (QC): 5 Does the Patient Walk: Yes Walk 10 feet (QC): 5 Walk 50ft with 2 Turns (QC): 5 Walk 150 ft (QC): 5 Walking 10ft on Uneven Surface: 5 1 Step (curb) (QC): 5 4 Steps (QC): 5 12 Steps (QC): 9 Picking up an Object (QC): 5 Does the Pt use WC or Scooter?: No Wheel 50 feet with 2 turns (QC: 5 Type: Manual Wheel 150 feet: 5 Type: Manual PT Plan Problem List Problem List: Activity Tolerance, Functional Strength, Safety, Balance, Gait, Transfer, Bed Mobility, ROM Treatment/Plan Treatment Plan: Continue Plan of Care Treatment Plan: Bed Mobility, Education, Functional Activity Sallie, Functional Strength, Group Therapy, Gait, Safety, Therapeutic Exercise, Transfers Treatment Duration: Sep 05, 2020 Frequency: At least 5 of 7 days/Wk (IRF) Estimated Hrs Per Day: 1.5 hours per day Patient and/or Family Agrees t: Yes Safety Risks/Education Patient Education: Gait Training, Transfer Techniques, Correct Positioning, Safety Issues Teaching Recipient: Patient Teaching Methods: Demonstration, Discussion Response to Teaching: Reinforcement Needed Time/GCodes Time In: 1245 Time Out: 1300 Total Billed Treatment Time: 15 Total Billed Treatment 1 visit FA JIMENEZ VALE PT Aug 17, 2020 13:16
--- NOTE | 2020-08-17 13:58 | Speech Therapy Daily Note ---
Speech Daily Progress Note Subjective Date Seen by Provider: Aug 17, 2020 Time Seen by Provider: 00:30 Pt. was pleasant and alert, eating his lunch. Pt needed his dentures to chew his food. Objective Pt's swallowing was of concern to medical staff. Pt is currently on a regular consistency diet which was observed with intake at the noon meal. Pt required upper dentures to safely intake meal. No s/s of aspiration noted. Pt was able to follow directions and questions about his intake at 100%. Assessment Assessment Current Status: Good Progress Treatment Plan Continue Plan of Care Speech Short Term Goals Short Term Goals Short Term Goals Pt will complete memory tasks related to daily needs at 80% or greater with minimal cues. Pt will complete safety awareness tasks related to daily needs at 80% or greater with minimal cues. Pt will complete problem solving tasks related to daily needs at 80% or greater with minimal cues. Speech Penitentiary Goals Senior Housekeeper Goals Pt will improve cognitive communication abilities so that he can complete daily tasks with minimal assist. Speech-Plan Patient/Family Goals Patient/Family Goals: Pt plans to return home. Treatment Plan Speech Therapy Treatment Plan: Continue Plan of Care Treatment Duration: Aug 16, 2020 Frequency: 4 times per week (Patient will receive skilled ST 4-5x per week) Estimated Hrs Per Day: .5 hour per day Rehab Potential: Fair Barriers to Learning: Decreased cognition, age Pt/Family Agrees to Plan: Yes Safety Risks/Education Teaching Recipient: Patient, Family Teaching Methods: Demonstration, Discussion Response to Teaching: Verbalize Understanding, Return Demonstration Education Topics Provided: Swallowing safety and compensatory cognitive communication strategies. Time Speech Therapy Time In: 12:00 Speech Therapy Time Out: 12:30 Total Billed Time: 30 Billed Treatment Time 1SADE SLTS No WHORTON, BETHANIA ST Aug 17, 2020 13:58
[2020-08-17] MEDS ORDERED: PHENAZOPYRIDINE 100 MG (PYRIDIUM) TABLET PO SCH (14:00)
[2020-08-17] MEDS: PHENAZOPYRIDINE 100 MG (PYRIDIUM) TABLET PO SCH ×2 (14:31→18:06)
--- NOTE | 2020-08-17 17:15 | CONSULTATION REPORT ---
DATE OF SERVICE: 08/17/2020 ATTENDING PHYSICIAN: Dr. Self. SUMMARY: An 80-year-old white man that I have seen before in the past, but not for the past 5 years or so who has been admitted to the inpatient rehab unit because of multiple recent falls. He had a catheter put in, this was removed. He was voiding well, but had frequency and urgency. So, the catheter was reinserted again yesterday. The patient denies voiding symptoms at home. There is a question that he was on Flomax or no, not inpatient though. I reviewed his history and physical. IMPRESSION: Urinary retention, BPH and/or neurogenic bladder, resolved, cystitis secondary to catheter, indwelling. PLAN: Start him or restart him on the Flomax 0.4 mg daily. We will go ahead and take the catheter out and start him on Pyridium 200 mg t.i.d. on a scheduled basis and manage accordingly. Job ID: [id number] DocumentID: [id number] Dictated Date: 08/17/2020 13:48:05 Leather Case Finisher Date: 08/17/2020 17:14:01 Dictated By: ALIDA NEWBY MD
[2020-08-17] MEDS: TAMSULOSIN 0.4 MG (FLOMAX) CAP PO SCH (18:06)
[2020-08-17 18:52] VITALS: BP 163/71
[2020-08-17 20:30] VITALS: BP 132/63
[2020-08-17] MEDS: OLANZapine 2.5 MG (ZyPREXA) TAB PO SCH (20:46)
[2020-08-17] MEDS: MIRTAZAPINE 15 MG (REMERON) TAB PO SCH (20:47)
[2020-08-17] MEDS ORDERED: OLANZapine 5 MG (ZyPREXA) TAB PO SCH (21:00)
[2020-08-17] MEDS: LATANOPROST 0.005% (XALATAN) OPHTH SOLN 2.5 ML OU SCH (21:37)
[2020-08-18] MEDS: CATHETER FLUSH 10 ML SYR IV SCH ×3 (05:41→21:50)
[2020-08-18] MEDS: cefTRIAXone FOR IV USE 1,000 MG in WATER (STERILE) FOR INJECTION 10 ML IV SCH (05:42)
[2020-08-18 05:59] VITALS: BP 122/65
[2020-08-18] MEDS: VENlafaxine XR 75 MG (EFFEXOR XR) CAP PO SCH (06:54)
--- NOTE | 2020-08-18 10:28 | Cardiology Progress Note ---
Subjective Date Seen by Provider: Aug 18, 2020 Time Seen by Provider: 10:27 Subjective/Events-last exam Patient is laying down in bed, no new complaint, feeling better Review of Systems General: No Chills, No Night Sweats; Fatigue; No Malaise, No Appetite, No Other HEENT: No Head Aches, No Visual Changes, No Eye Pain, No Ear Pain, No Dysphasia, No Sinus Congestion, No Post Nasal Drip, No Sore Throat, No Other Pulmonary: No Dyspnea, No Cough, No Pleuritic Chest Pain, No Other Cardiovascular: Edema; No: Chest Pain, Palpitations, Orthopnea, Paroxysmal Noc. Dyspnea, Lt Headedness, Other Focused Exam Lactate Level 08/17/20 05:39: Lactic Acid Level 0.77 Objective-Cardiology Exam Last Set of Vital Signs Vital Signs 08/18/20 08/18/20 05:59 07:00 Temp 36.4 Pulse 74 Resp 18 B/P (MAP) 122/65 (84) Pulse Ox 92 O2 Delivery Room Air Capillary Refill : I&O Intake and Output 08/18/20 00:00 Intake Total 800 ml Output Total 1200 ml Balance -400 ml Intake Oral 800 ml Output Urine Total 1200 ml General: Alert, Oriented X3, Cooperative HEENT: Atraumatic, PERRLA Neck: Supple, No JVD, No Thyromegaly Lungs: Clear to Auscultation, Normal Air Movement Heart: Regular Rate, Normal S1, Normal S2, No Murmurs Abdomen: Normal Bowel Sounds, Soft, No Tenderness, No Hepatosplenomegaly, No Masses Extremities: No Clubbing, No Cyanosis, No Edema, Normal Pulses, No Tenderness/Swelling Neuro: Normal Speech, Cranial Nerves 3-12 NL Psych/Mental Status: Mental Status NL, Mood NL A/P-Cardiology Admission Diagnosis Wide-complex tachycardia PAF HTN Dizziness Assessment/Plan Status post wide-complex tachycardia, multiple episodes, frequent PVCs, symptomatic. most probably paroxysmal atrial fibrillation with aberrant conduction, started on amiodarone, Eliquis. Telemetry showing SR with PVCs, continue to monitor Mild elevation in troponin level, cardiac catheterization was carried out on August 13, 2020 showing heavily calcified coronary system with mild to moderate disease nonobstructive disease Dizziness and lightheadedness, near syncope secondary to tachycardia. Feeling better at this time Hypertension, mildly elevated, continue to monitor blood pressure Echocardiogram showed normal LV size and function, EF 60%, moderate mitral regurgitation, mild tricuspid regurgitation. Left atrial dilatation 5.1 cm. Generalized weakness, orthostatic dizziness and lightheadedness, unsteady gait, receiving physical and occupational therapy Urinary tract infection, improving, managed by primary care team TERESA HU MD Aug 18, 2020 10:28
[2020-08-18] MEDS: polyethylene glycoL POWDER 17 GM (MIRALAX) PACK PO SCH ×2 (11:04→21:00)
[2020-08-18] MEDS: SENNA W/DOCUSATE (SENOKOT S) TABLET PO SCH ×2 (11:04→21:30)
[2020-08-18] MEDS: DOCUSATE SODIUM 100 MG (COLACE) CAP PO SCH ×2 (11:04→21:30)
--- NOTE | 2020-08-18 11:56 | Occ Therapy Progress Note ---
Therapy Progress Note 11:30 Pt off floor to be with who is actively passing away. CHRISTEN BROOKS OT Aug 18, 2020 11:56
[2020-08-18 12:10] VITALS: BP 138/69
[2020-08-18] MEDS: APIXABAN 5 MG (ELIQUIS) TABLET PO SCH ×2 (12:14→21:48)
[2020-08-18] MEDS: PHENAZOPYRIDINE 100 MG (PYRIDIUM) TABLET PO SCH ×3 (12:14→18:33)
[2020-08-18] MEDS: BUMETANIDE 1 MG (BUMEX) TAB PO SCH (12:15)
[2020-08-18] MEDS: AMIODARONE 200 MG (CORDARONE) TAB PO SCH ×2 (12:15→21:48)
--- NOTE | 2020-08-18 12:17 | Physical Therapy Daily Note ---
PT Daily Note-Current Subjective Pt with daughter, returning to unit after visiting while she actively passed. Pt visibly upset about passing. Appearance Following session, pt in chair with call light and phone within reach, chair alarm on. Lunch tray in front of him, eating. Daughter present in the room. Mental Status Patient Orientation: Person, Confused Transfers SCALE: Activities may be completed with or without assistive devices. 5-Rfnhpfyqwb-kqaqlcd completes the activity by him/herself with no assistance from a helper. 5-Set-up or Clean-up Assistance-helper sets up or cleans up; patient completes activity. [place] assists only prior to or following the activity. 4-Supervision or Touching Assistance-helper provides verbal cues and/or touching /steadying and/or contact guard assistance as patient completes activity. Assistance may be provided throughout the activity or intermittently. 3-Partial/Moderate Assistance-helper does LESS THAN HALF the effort. [place] lifts, holds or supports trunk or limbs, but provides less than half the effort. 2-Substantial/Maximal Assistance-helper does MORE THAN HALF the effort. [place] lifts or holds trunk or limbs and provides more than half the effort. 1-Ojmhrjhnq-vbicbh does ALL the effort. Patient does none of the effort to complete the activity. Or, the assistance of 2 or more helpers is required for the patient to complete the activity. If activity was not attempted, code reason: 7-Patient Refused. 9-Not Applicable-not attempted and the patient did not perform the activity before the current illness, exacerbation or injury. 10-Not Attempted due to Environmental Limitations-(lack of equipment, weather restraints, etc.). 88-Not Attempted due to Medical Conditions or Safety Concerns. Sit to Stand (QC): 3 Chair/Zna-gi-Nqdyz Xfer(QC): 4 Pt requring cues for sequencing to transfer towards the (L) to go from [facility] to chair. Pt wants to sit before lining up correctly in chair. Weight Bearing Full Weight Bearing Full Weight Bearing Treatments Pt transferred from [facility] to chair following visit to 4th floor to be with as she actively passed. Pt then repositioned in chair for comfort. Pt reports he feels as if there is a bone spur on (R) heel, so sock doffed and this PT checked heel, noticeable blister on posterior (R) heel, RN notified. Lunch tray de livered, and assisted pt to get tray ready to eat. Pt declines further assistance or PT session, would like to complete lunch and be with family. Assessment Current Status: Fair Progress Treatment limited this date, due to passing of pts this same date. Will continue to progress pt as able. PT Short Term Goals Short Term Goals Time Frame: Aug 22, 2020 Roll Left & Right: 4 (SBA) Sit to lyin (SBA) Lying to sitting on side of be: 4 (SBA) Sit to stand: 4 (SBA) Chair/ocv-fx-yraof transfer: 4 (SBA) Toilet transfer: 4 (SBA) Car transfer: 4 (SBA) Walk 10 feet: 4 (CGA) Walk 50 feet with two turns: 4 (CGA) Walk 150 feet: 4 (CGA) Walking 10ft on uneven surface: 3 (min) 1 step (curb): 3 (min) Does pt use a wc or scooter: Yes Wheel 50ft w/2 turns: 4 (SBA) Wheel 150 feet: 4 (SBA) Type: Manual PT Operations Administrative Assistant Goals Operations Administrative Assistant Goals PT Prison Goals Time Frame: Sep 05, 2020 Roll Left & Right (QC): 5 Sit to Lying (QC): 5 Lying-Sitting on Side/Bed(QC): 5 Sit to Stand (QC): 5 Chair/Xnw-zs-Cjjyb Xfer(QC): 5 Toilet Transfer (QC): 5 Car Transfer (QC): 5 Does the Patient Walk: Yes Walk 10 feet (QC): 5 Walk 50ft with 2 Turns (QC): 5 Walk 150 ft (QC): 5 Walking 10ft on Uneven Surface: 5 1 Step (curb) (QC): 5 4 Steps (QC): 5 12 Steps (QC): 9 Picking up an Object (QC): 5 Does the Pt use WC or Scooter?: No Wheel 50 feet with 2 turns (QC: 5 Type: Manual Wheel 150 feet: 5 Type: Manual PT Plan Problem List Problem List: Activity Tolerance, Functional Strength, Safety, Balance, Gait, Transfer, Bed Mobility, ROM Treatment/Plan Treatment Plan: Continue Plan of Care Treatment Plan: Bed Mobility, Education, Functional Activity Sallie, Functional Strength, Group Therapy, Gait, Safety, Therapeutic Exercise, Transfers Treatment Duration: Sep 05, 2020 Frequency: At least 5 of 7 days/Wk (IRF) Estimated Hrs Per Day: 1.5 hours per day Patient and/or Family Agrees t: Yes Time/GCodes Time In: 1157 Time Out: 1208 Total Billed Treatment Time: 11 Total Billed Treatment 1 visit FA (10') SHANNAN MOORE PT Aug 18, 2020 12:17
[2020-08-18] MEDS: HYDROXYCHLOROQUINE 200 MG (PLAQUENIL) TAB PO SCH (12:23)
[2020-08-18] MEDS: IBUPROFEN TABLET 200 MG TAB PO PRN (13:19)
--- NOTE | 2020-08-18 13:34 | PM&R Progress Note ---
Subjective HPI/CC On Admission Date Seen by Provider: Aug 18, 2020 Time Seen by Provider: 13:40 Subjective/Events-last exam 08/18/20: Patient back and forth between his 's room upstairs since she is dying Slept well last night NSR on Tely Catheter DC Dr De Paz consulted Venofer will be given due to iron def 08/17/20: Patient became confused at midnight Xanax 0.25mg caused a bit of oversedation Patient converted to NSR on Tely HR 50's SLUMS 17 terminal upstairs 08/16/20: Patient doing well Hgb 8.9 Iron level pending Urinary frequency noted No retention noted Remeron started for insomnia Had confusion at 1800 so started antipsychotics and placed dc SLUMS 17 Without his to compensate for him, since she is admitted acute, it is clear how declined he really is Review of Systems General: Fatigue, Malaise Neurological: Weakness, Confusion Focused Exam Lactate Level 08/17/20 05:39: Lactic Acid Level 0.77 Objective Exam Vital Signs Vital Signs Date Time Temp Pulse Resp B/P (MAP) Pulse Ox O2 Delivery O2 Flow Rate FiO2 08/18/20 12:33 77 08/18/20 12:10 22 138/69 (92) 93 Room Air 08/18/20 05:59 36.4 Capillary Refill : General Appearance: No Apparent Distress, WD/WN, Chronically ill, Obese HEENT: PERRL/EOMI, Normal ENT Inspection, Pharynx Normal Neck: Full Range of Motion, Normal Inspection, Non Tender, Supple, Carotid Bruit Respiratory: Chest Non Tender, Lungs Clear, No Accessory Muscle Use, No Respiratory Distress, Decreased Breath Sounds Cardiovascular: Regular Rate, Rhythm, No Edema, No Gallop, No JVD, No Murmur, Normal Peripheral Pulses Gastrointestinal: Normal Bowel Sounds, No Organomegaly, No Pulsatile Mass, Non Tender, Soft Back: Normal Inspection, No CVA Tenderness, No Vertebral Tenderness Extremity: Normal Capillary Refill, Normal Inspection, Normal Range of Motion, Non Tender, No Calf Tenderness, No Pedal Edema Neurologic/Psychiatric: Alert, Oriented x3, Abnormal Gait, Depressed Affect, Motor Weakness (generalized) Skin: Normal Color, Warm/Dry Lymphatic: No Adenopathy Results/Procedures Lab Patient resulted labs reviewed. FIM Transfers Therapy Code Descriptions/Definitions Functional [place] Measure: 0=Not Assessed/NA 4=Minimal Assistance 1=Total Assistance 5=Supervision or Setup 2=Maximal Assistance 6=Modified [place] 3=Moderate Assistance 7=Complete IndependenceSCALE: Activities may be completed with or without assistive devices. 6-Rbqcuxpsaw-wvzriih completes the activity by him/herself with no assistance from a helper. 5-Set-up or Clean-up Assistance-helper sets up or cleans up; patient completes activity. [place] assists only prior to or following the activity. 4-Supervision or Touching Assistance-helper provides verbal cues and/or touching/steadying and/or contact guard assistance as patient completes activity . Assistance may be provided throughout the activity or intermittently. 3-Partial/Moderate Assistance-helper does LESS THAN HALF the effort. [place] lifts, holds or supports trunk or limbs, but provides less than half the effort. 2-Substantial/Maximal Assistance-helper does MORE THAN HALF the effort. [place] lifts or holds trunk or limbs and provides more than half the effort. 6-Tridmvyjr-gbtfcl does ALL the effort. Patient does none of the effort to complete the activity. Or, the assistance of 2 or more helpers is required for the patient to complete the activity. If activity was not attempted, code reason: 7-Patient Refused. 9-Not Applicable-not attempted and the patient did not perform the activity before the current illness, exacerbation or injury. 10-Not Attempted due to Environmental Limitations-(lack of equipment, weather restraints, etc.). 88-Not Attempted due to Medical Conditions or Safety Concerns. Roll Left to Right (QC): 3 Sit to Lying (QC): 3 Sit to Stand (QC): 3 Chair/Bgx-xu-Sxoez Xfer(QC): 4 Car Transfer (QC): 3 (mod) Gait Training Does the Patient Walk?: Yes Distance: 5' Walk 10 feet (QC): 3 Walk 50 ft with 2 Turns(QC): 3 Walk 150 ft (QC): 88 Walking 10ft/uneven surface-QC: 88 Gait Persons Needed: 1 Gait Assistive Device: FWW Wheelchair Training Does the Pt Use a Wheelchair?: Yes Distance: 50' Wheel 50 ft with 2 turns (QC): 4 Wheel 150 ft (QC): 88 Type of Wheelchair: Manual Stair Training 1 Step (curb) (QC): 88 4 Steps (QC): 88 12 Steps (QC): 88 Balance Picking up an Object (QC): 88 ADL-Treatment Eating (QC): 3 (min A due to decreased alertness and SBA during this task.) Oral Hygiene (QC): 7 Bathing Location: L Arm, R Arm, L Upper Leg, R Upper Leg, Chest, Abdomen, Perineal Area Shower/Bathe Self (QC): 3 (mod A for bottom/ LE and back care. Sponge bath, EOB. Requires CGA to min A for righting to center (leans to L) during session.) Upper Body Dressing (QC): 3 (min A doffing, mod A donning with increased time (pt able to thread, requires assist overhead and pulling over abdomen/ back once over shoulders.) Lower Body Dressing (QC): 2 (max A- threaded BLE with max A, pt able to ice puller knees and ice puller hips with mod A and CGA in stance.) On/Off Footwear (QC): 1 (States did not compelte at home.) Toileting Hygiene (QC): 3 (mod A (bottom care) and pt completes tanisha care in stance with CGA.) Assessment/Plan Assessment and Plan Assess & Plan/Chief Complaint Assessment: Ventricular arrhythmia A fib new onset OAC new HTN Lupus Obesity Urinary retention since dc DC Pneumonitis CRI Dementia SLUMS 17 Anemia iron def Plan: Monitor closely Cardiology appreciated Monitor creat Urinary retention management 08/16/20: Dc cath Monitor closely Anti-psychotics 08/17/20: Monitor closely Cardiology appreciated 08/18/20: Venofer iron infusion Support through 's dying process (1) Ventricular arrhythmia (2) Pneumonitis (3) Knee pain, right (4) Atrial fibrillation (5) Falls frequently (6) Urinary retention (7) Lupus Status: Chronic (8) Hypertension Status: Acute (9) Leg edema Status: Acute (10) Renal insufficiency Status: Acute ELDA LUNA DO Aug 18, 2020 13:34
[2020-08-18] MEDS: IRON SUCROSE 200 MG/10 ML (VENOFER) VIAL IV SCH (17:53)
[2020-08-18] MEDS: TAMSULOSIN 0.4 MG (FLOMAX) CAP PO SCH (17:53)
[2020-08-18 18:00] VITALS: BP 111/56
[2020-08-18 21:30] VITALS: BP 140/67
[2020-08-18] MEDS: MIRTAZAPINE 15 MG (REMERON) TAB PO SCH (21:48)
[2020-08-18] MEDS: OLANZapine 2.5 MG (ZyPREXA) TAB PO SCH (21:48)
[2020-08-18] MEDS: LATANOPROST 0.005% (XALATAN) OPHTH SOLN 2.5 ML OU SCH (21:49)
[2020-08-19] MEDS: CATHETER FLUSH 10 ML SYR IV SCH ×3 (05:45→22:14)
[2020-08-19] MEDS: cefTRIAXone FOR IV USE 1,000 MG in WATER (STERILE) FOR INJECTION 10 ML IV SCH (05:46)
[2020-08-19 06:17] VITALS: BP 121/60
[2020-08-19] MEDS: VENlafaxine XR 75 MG (EFFEXOR XR) CAP PO SCH (06:38)
--- NOTE | 2020-08-19 07:05 | PM&R Progress Note ---
Subjective HPI/CC On Admission Date Seen by Provider: Aug 19, 2020 Time Seen by Provider: 12:30 Subjective/Events-last exam 08/19/20: Patient doing well since last evening Tely reveals AF now Dr De Paz changed pyridium to prn Incontinence last night Ate bfast Venofer yesterday 08/18/20: Patient back and forth between his 's room upstairs since she is dying Slept well last night NSR on Tely Catheter DC Dr De Paz consulted Venofer will be given due to iron def 08/17/20: Patient became confused at midnight Xanax 0.25mg caused a bit of oversedation Patient converted to NSR on Tely HR 50's SLUMS 17 terminal upstairs 08/16/20: Patient doing well Hgb 8.9 Iron level pending Urinary frequency noted No retention noted Remeron started for insomnia Had confusion at 1800 so started antipsychotics and placed dc SLUMS 17 Without his to compensate for him, since she is admitted acute, it is clear how declined he really is Review of Systems General: Fatigue Genitourinary: Incontinence Neurological: Weakness, Confusion Focused Exam Lactate Level 08/17/20 05:39: Lactic Acid Level 0.77 Objective Exam Vital Signs Vital Signs Date Time Temp Pulse Resp B/P (MAP) Pulse Ox O2 Delivery O2 Flow Rate FiO2 08/19/20 18:29 36.8 73 22 146/71 (96) 96 Room Air Capillary Refill : General Appearance: No Apparent Distress, WD/WN, Chronically ill, Obese HEENT: PERRL/EOMI, Normal ENT Inspection, Pharynx Normal Neck: Full Range of Motion, Normal Inspection, Non Tender, Supple, Carotid Bruit Respiratory: Chest Non Tender, Lungs Clear, No Accessory Muscle Use, No Respiratory Distress, Decreased Breath Sounds Cardiovascular: Regular Rate, Rhythm, No Edema, No Gallop, No JVD, No Murmur, Normal Peripheral Pulses Gastrointestinal: Normal Bowel Sounds, No Organomegaly, No Pulsatile Mass, Non Tender, Soft Back: Normal Inspection, No CVA Tenderness, No Vertebral Tenderness Extremity: Normal Capillary Refill, Normal Inspection, Normal Range of Motion, Non Tender, No Calf Tenderness, No Pedal Edema Neurologic/Psychiatric: Alert, Oriented x3, Abnormal Gait, Depressed Affect, Motor Weakness (generalized) Skin: Normal Color, Warm/Dry Lymphatic: No Adenopathy Results/Procedures Lab Patient resulted labs reviewed. FIM Transfers Therapy Code Descriptions/Definitions Functional [place] Measure: 0=Not Assessed/NA 4=Minimal Assistance 1=Total Assistance 5=Supervision or Setup 2=Maximal Assistance 6=Modified [place] 3=Moderate Assistance 7=Complete IndependenceSCALE: Activities may be completed with or without assistive devices. 8-Nxxiksdlae-svnugvw completes the activity by him/herself with no assistance from a helper. 5-Set-up or Clean-up Assistance-helper sets up or cleans up; patient completes activity. [place] assists only prior to or following the activity. 4-Supervision or Touching Assistance-helper provides verbal cues and/or touching/steadying and/or contact guard assistance as patient completes activity. Assistance may be provided throughout the activity or intermittently. 3-Partial/Moderate Assistance-helper does LESS THAN HALF the effort. [place] lifts, holds or supports trunk or limbs, but provides less than half the effort. 2-Substantial/Maximal Assistance-helper does MORE THAN HALF the effort. [place] lifts or holds trunk or limbs and provides more than half the effort. 2-[place]-rglxaq does ALL the effort. Patient does none of the effort to complete the activity. Or, the assistance of 2 or more helpers is required for the patient to complete the activity. If activity was not attempted, code reason: 7-Patient Refused. 9-Not Applicable-not attempted and the patient did not perform the activity before the current illness, exacerbation or injury. 10-Not Attempted due to Environmental Limitations-(lack of equipment, weather restraints, etc.). 88-Not Attempted due to Medical Conditions or Safety Concerns. Roll Left to Right (QC): 3 Sit to Lying (QC): 3 Sit to Stand (QC): 3 Chair/Gyb-cv-Ntzll Xfer(QC): 4 Car Transfer (QC): 3 (mod) Gait Training Does the Patient Walk?: Yes Distance: 5' Walk 10 feet (QC): 3 Walk 50 ft with 2 Turns(QC): 3 Walk 150 ft (QC): 88 Walking 10ft/uneven surface-QC: 88 Gait Persons Needed: 1 Gait Assistive Device: FWW Wheelchair Training Does the Pt Use a Wheelchair?: Yes Distance: 50' Wheel 50 ft with 2 turns (QC): 4 Wheel 150 ft (QC): 88 Type of Wheelchair: Manual Stair Training 1 Step (curb) (QC): 88 4 Steps (QC): 88 12 Steps (QC): 88 Balance Picking up an Object (QC): 88 ADL-Treatment Eating (QC): 3 (min A due to decreased alertness and SBA during this task.) Oral Hygiene (QC): 7 Bathing Location: L Arm, R Arm, L Upper Leg, R Upper Leg, Chest, Abdomen, Perineal Area Shower/Bathe Self (QC): 3 (mod A for bottom/ LE and back care. Sponge bath, EOB. Requires CGA to min A for righting to center (leans to L) during session.) Upper Body Dressing (QC): 3 (min A doffing, mod A donning with increased time (pt able to thread, requires assist overhead and pulling over abdomen/ back once over shoulders.) Lower Body Dressing (QC): 2 (max A- threaded BLE with max A, pt able to harness puller knees and harness puller hips with mod A and CGA in stance.) On/Off Footwear (QC): 1 (States did not compelte at home.) Toileting Hygiene (QC): 3 (mod A (bottom care) and pt completes tanisha care in stance with CGA.) Assessment/Plan Assessment and Plan Assess & Plan/Chief Complaint Assessment: Ventricular arrhythmia A fib new onset OAC new HTN Lupus Obesity Urinary retention since dc DC Pneumonitis CRI Dementia SLUMS 17 Sundowning Anemia iron def Plan: Monitor closely Cardiology appreciated Monitor creat Urinary retention management 08/16/20: Dc cath Monitor closely Anti-psychotics 08/17/20: Monitor closely Cardiology appreciated 08/18/20: Venofer iron infusion Support through 's dying process 08/19/20: Monitor incontinence AF on Tely (1) Ventricular arrhythmia (2) Pneumonitis (3) Knee pain, right (4) Atrial fibrillation (5) Falls frequently (6) Urinary retention (7) Lupus Status: Chronic (8) Hypertension Status: Acute (9) Leg edema Status: Acute (10) Renal insufficiency Status: Acute ELDA LUNA DO Aug 19, 2020 07:05
--- NOTE | 2020-08-19 10:05 | Progress Note - Urology ---
Progress Note-Urology Progress Notes/Assess & Plan Progress/Assessment & Plan VOIDING WELL NO DYSURIA OR PAIN. PLAN 1. KEEP ON FLOMAX 2. CHANGE PYRIDIUM TO PRN 3. WHEN DISCHARGE MAY FOLLOW UP WITH ME IF WISHES SO Final Diagnosis RETENTION ALIDA NEWBY MD Aug 19, 2020 10:05
[2020-08-19] MEDS: AMIODARONE 200 MG (CORDARONE) TAB PO SCH ×2 (10:41→22:16)
[2020-08-19] MEDS: BUMETANIDE 1 MG (BUMEX) TAB PO SCH (10:42)
[2020-08-19] MEDS: APIXABAN 5 MG (ELIQUIS) TABLET PO SCH ×2 (10:42→22:15)
[2020-08-19] MEDS: IBUPROFEN TABLET 200 MG TAB PO PRN ×2 (10:43→18:30)
[2020-08-19] MEDS: DICLOFENAC 1% GEL 100 GM (VOLTAREN) TUBE TOP PRN (10:44)
[2020-08-19] MEDS: HYDROXYCHLOROQUINE 200 MG (PLAQUENIL) TAB PO SCH (11:28)
--- NOTE | 2020-08-19 12:00 | Cardiology Progress Note ---
Subjective Date Seen by Provider: Aug 19, 2020 Time Seen by Provider: 12:00 Subjective/Events-last exam Patient is sitting comfortably in bed. No new complaint. No chest pain Review of Systems General: No Chills, No Night Sweats, No Fatigue, No Malaise, No Appetite, No Ot her HEENT: No Head Aches, No Visual Changes, No Eye Pain, No Ear Pain, No Dysphasia, No Sinus Congestion, No Post Nasal Drip, No Sore Throat, No Other Pulmonary: No Dyspnea, No Cough, No Pleuritic Chest Pain, No Other Cardiovascular: No: Chest Pain, Palpitations, Orthopnea, Paroxysmal Noc. Dyspnea, Edema, Lt Headedness, Other Focused Exam Lactate Level 08/17/20 05:39: Lactic Acid Level 0.77 Objective-Cardiology Exam Last Set of Vital Signs Vital Signs 08/19/20 08/19/20 06:17 07:00 Temp 37.1 Pulse 69 Resp 18 B/P (MAP) 121/60 (80) Pulse Ox 91 O2 Delivery Room Air Capillary Refill : I&O Intake and Output 08/19/20 00:00 Intake Total 1440 ml Output Total 1200 ml Balance 240 ml Intake Oral 1440 ml Output Urine Total 1200 ml # Voids 5 General: Alert, Oriented X3, Cooperative HEENT: Atraumatic, PERRLA Neck: Supple, No JVD, No Thyromegaly Lungs: Clear to Auscultation, Normal Air Movement Heart: Regular Rate, Normal S1, Normal S2, No Murmurs Abdomen: Normal Bowel Sounds, Soft, No Tenderness, No Hepatosplenomegaly, No Masses Extremities: No Clubbing, No Cyanosis, No Edema, Normal Pulses, No Tenderness/Swelling Neuro: Normal Speech, Cranial Nerves 3-12 NL Psych/Mental Status: Mental Status NL, Mood NL A/P-Cardiology Admission Diagnosis Wide-complex tachycardia PAF HTN Dizziness Assessment/Plan Status post wide-complex tachycardia, multiple episodes, frequent PVCs, symptomatic. most probably paroxysmal atrial fibrillation with aberrant conduction, started on amiodarone, Eliquis. Telemetry showing SR with PVCs, continue to monitor Mild elevation in troponin level, cardiac catheterization was carried out on August 13, 2020 showing heavily calcified coronary system with mild to moderate disease nonobstructive disease Dizziness and lightheadedness, near syncope secondary to tachycardia. Feeling better at this time Hypertension, mildly elevated, continue to monitor blood pressure Echocardiogram showed normal LV size and function, EF 60%, moderate mitral regurgitation, mild tricuspid regurgitation. Left atrial dilatation 5.1 cm. Generalized weakness, orthostatic dizziness and lightheadedness, unsteady gait, receiving physical and occupational therapy Urinary tract infection, improving, managed by primary care team TERESA HU MD Aug 19, 2020 12:00
[2020-08-19] MEDS: DOCUSATE SODIUM 100 MG (COLACE) CAP PO SCH ×2 (12:45→22:17)
[2020-08-19] MEDS: PHENAZOPYRIDINE 100 MG (PYRIDIUM) TABLET PO SCH ×2 (12:45→17:52)
[2020-08-19] MEDS: polyethylene glycoL POWDER 17 GM (MIRALAX) PACK PO SCH ×2 (12:45→22:17)
[2020-08-19] MEDS: SENNA W/DOCUSATE (SENOKOT S) TABLET PO SCH ×2 (12:46→22:17)
[2020-08-19 17:01] VITALS: BP 117/59
[2020-08-19] MEDS: TAMSULOSIN 0.4 MG (FLOMAX) CAP PO SCH (17:08)
[2020-08-19] MEDS ORDERED: PHENAZOPYRIDINE 100 MG (PYRIDIUM) TABLET PO PRN (18:00)
[2020-08-19 18:29] VITALS: BP 146/71
[2020-08-19 21:30] VITALS: BP 123/58
[2020-08-19] MEDS: LATANOPROST 0.005% (XALATAN) OPHTH SOLN 2.5 ML OU SCH (22:15)
[2020-08-19] MEDS: OLANZapine 2.5 MG (ZyPREXA) TAB PO SCH (22:15)
[2020-08-19] MEDS: MIRTAZAPINE 15 MG (REMERON) TAB PO SCH (22:16)
[2020-08-20 05:53] VITALS: BP 117/56
[2020-08-20] MEDS: VENlafaxine XR 75 MG (EFFEXOR XR) CAP PO SCH (06:03)
[2020-08-20] MEDS: CATHETER FLUSH 10 ML SYR IV SCH ×3 (06:03→22:40)
[2020-08-20] MEDS: DICLOFENAC 1% GEL 100 GM (VOLTAREN) TUBE TOP PRN ×2 (08:26→20:55)
--- NOTE | 2020-08-20 08:32 | Cardiology Progress Note ---
Subjective Date Seen by Provider: Aug 20, 2020 Time Seen by Provider: 08:31 Subjective/Events-last exam Patient sitting up in bed, no new complaints. Denies any chest pain or dyspnea Review of Systems General: No Chills, No Night Sweats, No Fatigue, No Malaise, No Appetite, No Other HEENT: No Head Aches, No Visual Changes, No Eye Pain, No Ear Pain, No Dysphasia, No Sinus Congestion, No Post Nasal Drip, No Sore Throat, No Other Pulmonary: No Dyspnea, No Cough, No Pleuritic Chest Pain, No Other Cardiovascular: No: Chest Pain, Palpitations, Orthopnea, Paroxysmal Noc. Dyspnea, Edema, Lt Headedness, Other Objective-Cardiology Exam Last Set of Vital Signs Vital Signs 08/20/20 08/20/20 08/20/20 05:53 08:36 13:09 Temp 36.5 Pulse 70 Resp 17 B/P (MAP) 117/56 (76) Pulse Ox 92 O2 Delivery Room Air Capillary Refill : I&O Intake and Output 08/20/20 00:00 Intake Total 1545 ml Balance 1545 ml Intake Oral 1545 ml # Voids 6 # Urine Diapers 4 # Bowel Movements 1 General: Alert, Oriented X3, Cooperative HEENT: Atraumatic, PERRLA Neck: Supple, No JVD, No Thyromegaly Lungs: Clear to Auscultation, Normal Air Movement Heart: Regular Rate, Normal S1, Normal S2, No Murmurs Abdomen: Normal Bowel Sounds, Soft, No Tenderness, No Hepatosplenomegaly, No Masses Extremities: No Clubbing, No Cyanosis, No Edema, Normal Pulses, No Tenderness/Swelling Neuro: Normal Speech, Cranial Nerves 3-12 NL Psych/Mental Status: Mental Status NL, Mood NL A/P-Cardiology Admission Diagnosis Wide-complex tachycardia PAF HTN Dizziness Assessment/Plan Status post wide-complex tachycardia, multiple episodes, frequent PVCs, symptomatic. most probably paroxysmal atrial fibrillation with aberrant conduction, started on amiodarone, Eliquis. Continue to monitor. 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 Feeling better at this time Hypertension, controlled, continue to monitor blood pressure Echocardiogram showed normal LV size and function, EF 60%, moderate mitral regurgitation, mild tricuspid regurgitation. Left atrial dilatation 5.1 cm. Generalized weakness, orthostatic dizziness and lightheadedness, unsteady gait, receiving physical and occupational therapy Urinary tract infection, improving, managed by primary care team Patient was seen and evaluated with Petra, examination performed, management plan was discussed, agree with the current scribed note, I made few changes to the note using Italic font Supervisory-Addendum Brief Supervisory Addendum Participated in pt care: history, MDM, physical Personally performed: exam, history, MDM Care discussed with: TANYA Notes: Patient was seen at bedside, sitting comfortably, denied any chest pain. No palpitation. Pressure stable. Continue to monitor, monitor for arrhythmia. PETRA GOMEZ Aug 20, 2020 08:32 TERESA HU MD Aug 20, 2020 14:39
[2020-08-20] MEDS: APIXABAN 5 MG (ELIQUIS) TABLET PO SCH ×2 (08:35→20:54)
[2020-08-20] MEDS: IRON SUCROSE 200 MG/10 ML (VENOFER) VIAL IV SCH (08:35)
[2020-08-20] MEDS: DOCUSATE SODIUM 100 MG (COLACE) CAP PO SCH ×2 (08:35→20:54)
[2020-08-20] MEDS: AMIODARONE 200 MG (CORDARONE) TAB PO SCH ×2 (08:36→20:54)
[2020-08-20] MEDS: IBUPROFEN TABLET 200 MG TAB PO PRN (08:36)
[2020-08-20] MEDS: BUMETANIDE 1 MG (BUMEX) TAB PO SCH (08:37)
[2020-08-20] MEDS: SENNA W/DOCUSATE (SENOKOT S) TABLET PO SCH ×2 (08:37→21:00)
[2020-08-20] MEDS: polyethylene glycoL POWDER 17 GM (MIRALAX) PACK PO SCH ×2 (08:41→21:00)
--- NOTE | 2020-08-20 09:25 | Progress Note - Ortho ---
Progress Note Subjective Date of Exam 08/20/20 Chief Complaint Right knee pain/osteoarthritis HPI/Events since last exam Since I last saw Mr. Lutz on 08/15, he states his knee is doing better. We held off on an injection due to antibiotic treatment for pneumonitis and atelectasis. I asked him today if he wanted an injection he states his knee is feeling pretty good and he is going to wait Review of Systems Unchanged Allergies: Coded Allergies: No Known Drug Allergies (Unverified , 01/29/19) Home Meds Reported Medications Acetaminophen (Tylenol Extra Strength) 500 Mg Tablet, 500-1000 MG PO Q8H PRN for PAIN-MILD (1-4), TAB 08/14/20 Latanoprost (Xalatan) 2.5 Ml Drops, 1 DROP OU HS, DROPS 08/14/20 Bumetanide (Bumetanide) 0.5 Mg Tablet, 0.5 MG PO DAILY, TAB 08/14/20 Hydroxychloroquine Sulfate (Hydroxychloroquine Sulfate) 200 Mg Tablet, 200 MG PO DAILY, TAB 08/14/20 Tamsulosin HCl (Flomax) 0.4 Mg Cap, 0.4 MG PO HS, CAP 08/14/20 Losartan Potassium (Losartan Potassium) 50 Mg Tablet, 50 MG PO DAILY, TAB 08/14/20 Venlafaxine HCl (Venlafaxine HCl ER) 150 Mg Cap.er.24h, 300 MG PO DAILY, CAP TAKES 2 (150MG) CAPS 01/29/19 Discontinued Reported Medications Ibuprofen (Ibuprofen) 600 Mg Tablet, 600 MG PO Q6H PRN for PAIN-MILD, TAB 01/29/19 Losartan Potassium (Losartan Potassium) 100 Mg Tablet, 100 MG PO DAILY, TAB 01/29/19 Discontinued Scripts Azithromycin (Azithromycin) 250 Mg Tablet, 250 MG PO UD, #6 TAB TAKE 2 TABLETS ON DAY ONE THEN TAKE 1 TABLET DAILY FOR FOUR MORE DAYS Prov:YENNI FLOYD MD 01/29/19 Objective Exam Constitutional: [] HEENT: [] Neck: [] Cardiovascular: [] Respiratory: [] Gastrointestinal: [] Genitourinary: [] Skin: [] Back/Spine: [] Extremities: [Right kneeminimal swelling, joint line pain. No skin changes] Neurologic: [] Psychiatric: [] Hematologic/lymphatic/immunologic: [] Vital Signs Vital Signs Date Time Temp Pulse Resp B/P (MAP) Pulse Ox O2 Delivery O2 Flow Rate FiO2 08/20/20 06:45 57 08/20/20 05:53 36.5 56 17 117/56 (76) 92 Room Air 08/20/20 01:00 56 08/19/20 21:30 64 123/58 (79) 08/19/20 20:30 96 Room Air 08/19/20 19:00 69 08/19/20 18:29 36.8 73 22 146/71 (96) 96 Room Air 08/19/20 17:01 36.6 64 16 117/59 (78) 91 Room Air 08/19/20 12:49 74 I & O 08/20/20 07:00 Intake Total 1645 ml Balance 1645 ml Assessment and Plan Assessment Less pain right knee Problem List Unchanged Plan Given the patient states his knee is much better and he is get a hold off on an injection at this time. If his knee becomes more painful or swollen again then proceed with injection as needed Final Diagonsis Osteoarthritis right knee Level of the visit: Level 3 MILEY JOHNSON MD Aug 20, 2020 09:25
--- NOTE | 2020-08-20 10:18 | PM&R Progress Note ---
Subjective HPI/CC On Admission Date Seen by Provider: Aug 20, 2020 Time Seen by Provider: 10:30 Subjective/Events-last exam 08/20/20: Pt doing pretty well Dr. Doe evaluated him today Hgb 8.7 Potassium 3.4 He fell last night in the bathroom and daughters were aware of that He may very well require a usp for 24/7 supervision 08/19/20: Patient doing well since last evening Tely reveals AF now Dr De Paz changed pyridium to prn Incontinence last night Ate bfast Venofer yesterday 08/18/20: Patient back and forth between his 's room upstairs since she is dying Slept well last night NSR on Tely Catheter DC Dr De Paz consulted Venofer will be given due to iron def 08/17/20: Patient became confused at midnight Xanax 0.25mg caused a bit of oversedation Patient converted to NSR on Tely HR 50's SLUMS 17 terminal upstairs 08/16/20: Patient doing well Hgb 8.9 Iron level pending Urinary frequency noted No retention noted Remeron started for insomnia Had confusion at 1800 so started antipsychotics and placed dc SLUMS 17 Without his to compensate for him, since she is admitted acute, it is clear how declined he really is Review of Systems General: Fatigue, Malaise Neurological: Weakness Objective Exam Vital Signs Vital Signs Date Time Temp Pulse Resp B/P (MAP) Pulse Ox O2 Delivery O2 Flow Rate FiO2 08/20/20 19:00 64 08/20/20 16:00 36.5 20 143/63 (89) 92 Room Air Capillary Refill : General Appearance: No Apparent Distress, WD/WN, Chronically ill, Obese HEENT: PERRL/EOMI, Normal ENT Inspection, Pharynx Normal Neck: Full Range of Motion, Normal Inspection, Non Tender, Supple, Carotid Brui t Respiratory: Chest Non Tender, Lungs Clear, No Accessory Muscle Use, No Respiratory Distress, Decreased Breath Sounds Cardiovascular: Regular Rate, Rhythm, No Edema, No Gallop, No JVD, No Murmur, Normal Peripheral Pulses Gastrointestinal: Normal Bowel Sounds, No Organomegaly, No Pulsatile Mass, Non Tender, Soft Back: Normal Inspection, No CVA Tenderness, No Vertebral Tenderness Extremity: Normal Capillary Refill, Normal Inspection, Normal Range of Motion, Non Tender, No Calf Tenderness, No Pedal Edema Neurologic/Psychiatric: Alert, Oriented x3, Abnormal Gait, Depressed Affect, Motor Weakness (generalized) Skin: Normal Color, Warm/Dry Lymphatic: No Adenopathy Results/Procedures Lab Patient resulted labs reviewed. FIM Transfers Therapy Code Descriptions/Definitions Functional [place] Measure: 0=Not Assessed/NA 4=Minimal Assistance 1=Total Assistance 5=Supervision or Setup 2=Maximal Assistance 6=Modified [place] 3=Moderate Assistance 7=Complete IndependenceSCALE: Activities may be completed with or without assistive devices. 2-Cwuepofvaw-nrbsxpi completes the activity by him/herself with no assistance from a helper. 5-Set-up or Clean-up Assistance-helper sets up or cleans up; patient completes activity. [place] assists only prior to or following the activity. 4-Supervision or Touching Assistance-helper provides verbal cues and/or touching/steadying and/or contact guard assistance as patient completes activity. Assistance may be provided throughout the activity or intermittently. 3-Partial/Moderate Assistance-helper does LESS THAN HALF the effort. [place] lifts, holds or supports trunk or limbs, but provides less than half the effort. 2-Substantial/Maximal Assistance-helper does MORE THAN HALF the effort. [place] lifts or holds trunk or limbs and provides more than half the effort. 8-Uyrfcwocn-ykqqbp does ALL the effort. Patient does none of the effort to complete the activity. Or, the assistance of 2 or more helpers is required for the patient to complete the activity. If activity was not attempted, code reason: 7-Patient Refused. 9-Not Applicable-not attempted and the patient did not perform the activity before the current illness, exacerbation or injury. 10-Not Attempted due to Environmental Limitations-(lack of equipment, weather restraints, etc.). 88-Not Attempted due to Medical Conditions or Safety Concerns. Roll Left to Right (QC): 3 Sit to Lying (QC): 3 Sit to Stand (QC): 3 Chair/Wis-sr-Ayviy Xfer(QC): 4 Car Transfer (QC): 3 (mod) Gait Training Does the Patient Walk?: Yes Distance: 5' Walk 10 feet (QC): 3 Walk 50 ft with 2 Turns(QC): 3 Walk 150 ft (QC): 88 Walking 10ft/uneven surface-QC: 88 Gait Persons Needed: 1 Gait Assistive Device: FWW Wheelchair Training Does the Pt Use a Wheelchair?: Yes Distance: 50' Wheel 50 ft with 2 turns (QC): 4 Wheel 150 ft (QC): 88 Type of Wheelchair: Manual Stair Training 1 Step (curb) (QC): 88 4 Steps (QC): 88 12 Steps (QC): 88 Balance Picking up an Object (QC): 88 ADL-Treatment Eating (QC): 3 (min A due to decreased alertness and SBA during this task.) Oral Hygiene (QC): 7 Bathing Location: L Arm, R Arm, L Upper Leg, R Upper Leg, Chest, Abdomen, Perineal Area Shower/Bathe Self (QC): 3 (mod A for bottom/ LE and back care. Sponge bath, EOB. Requires CGA to min A for righting to center (leans to L) during session.) Upper Body Dressing (QC): 3 (min A doffing, mod A donning with increased time (pt able to thread, requires assist overhead and pulling over abdomen/ back once over shoulders.) Lower Body Dressing (QC): 2 (max A- threaded BLE with max A, pt able to last puller knees and last puller hips with mod A and CGA in stance.) On/Off Footwear (QC): 1 (States did not compelte at home.) Toileting Hygiene (QC): 3 (mod A (bottom care) and pt completes tanisha care in stance with CGA.) Assessment/Plan Assessment and Plan Assess & Plan/Chief Complaint Assessment: Ventricular arrhythmia A fib new onset OAC new HTN Lupus Obesity Urinary retention since dc DC Pneumonitis CRI Dementia SLUMS 17 owning Anemia iron def Plan: Monitor closely Cardiology appreciated Monitor creat Urinary retention management 08/16/20: Dc cath Monitor closely Anti-psychotics 08/17/20: Monitor closely Cardiology appreciated 08/18/20: Venofer iron infusion Support through 's dying process 08/19/20: Monitor incontinence AF on Tely 08/20/20: Monitor closely Venofer (1) Ventricular arrhythmia (2) Pneumonitis (3) Knee pain, right (4) Atrial fibrillation (5) Falls frequently (6) Urinary retention (7) Lupus Status: Chronic (8) Hypertension Status: Acute (9) Leg edema Status: Acute (10) Renal insufficiency Status: Acute LUNA,ELDA DO Aug 20, 2020 10:18
--- NOTE | 2020-08-20 11:24 | Speech Therapy Daily Note ---
Speech Daily Progress Note Subjective Date Seen by Provider: Aug 20, 2020 Time Seen by Provider: 00:30 Pt was pleasant and alert. Pt agreed to ST. Pt seemed slightly confused, could not recall the date his . Objective Pt described functional ADL scenarios at 100% without cueing. Assessment Assessment Current Status: Fair Progress Treatment Plan Continue Plan of Care Speech Short Term Goals Short Term Goals Short Term Goals Pt will complete memory tasks related to daily needs at 80% or greater with minimal cues. Pt will complete safety awareness tasks related to daily needs at 80% or greater with minimal cues. Pt will complete problem solving tasks related to daily needs at 80% or greater with minimal cues. Speech Clerk Entry Level Goals Clerk Entry Level Goals Pt will improve cognitive communication abilities so that he can complete daily tasks with minimal assist. Speech-Plan Patient/Family Goals Patient/Family Goals: Pt plans to return home where his family will be close by to assist him. Treatment Plan Speech Therapy Treatment Plan: Continue Plan of Care Treatment Duration: Aug 16, 2020 Frequency: 4 times per week (Patient will receive skilled ST 4-5x per week) Estimated Hrs Per Day: .5 hour per day Rehab Potential: Fair Barriers to Learning: Decresed cognition. Pt/Family Agrees to Plan: Yes Safety Risks/Education Teaching Recipient: Patient Teaching Methods: Demonstration, Discussion Response to Teaching: Verbalize Understanding Education Topics Provided: Safety of ADLs and compensatory cognitive strategies. Time Speech Therapy Time In: 10:00 Speech Therapy Time Out: 10:30 Total Billed Time: 30 Billed Treatment Time 1, SUSANA Mccann Aug 20, 2020 11:24
[2020-08-20] MEDS: HYDROXYCHLOROQUINE 200 MG (PLAQUENIL) TAB PO SCH (11:25)
--- NOTE | 2020-08-20 11:36 | Occupational Ther Daily Note ---
OT Current Status-Daily Note Subjective No pain reported. Pt. verbalizes that his knee is feeling, "pretty good." Mental Status/Objective Patient Orientation: Person, Place ADL-Treatment Therapy Code Descriptions/Definitions Functional [place] Measure: 0=Not Assessed/NA 4=Minimal Assistance 1=Total Assistance 5=Supervision or Setup 2=Maximal Assistance 6=Modified [place] 3=Moderate Assistance 7=Complete IndependenceSCALE: Activities may be completed with or without assistive devices. 7-Ojbhgesezb-syeocrg completes the activity by him/herself with no assistance from a helper. 5-Set-up or Clean-up Assistance-helper sets up or cleans up; patient completes activity. [place] assists only prior to or following the activity. 4-Supervision or Touching Assistance-helper provides verbal cues and/or touching/steadying and/or contact guard assistance as patient completes activity. Assistance may be provided throughout the activity or intermittently. 3-Partial/Moderate Assistance-helper does LESS THAN HALF the effort. [place] lifts, holds or supports trunk or limbs, but provides less than half the effort. 2-Substantial/Maximal Assistance-helper does MORE THAN HALF the effort. [place] lifts or holds trunk or limbs and provides more than half the effort. 7-Mqdnyfste-snkiho does ALL the effort. Patient does none of the effort to c omplete the activity. Or, the assistance of 2 or more helpers is required for the patient to complete the activity. If activity was not attempted, code reason: 7-Patient Refused. 9-Not Applicable-not attempted and the patient did not perform the activity before the current illness, exacerbation or injury. 10-Not Attempted due to Environmental Limitations-(lack of equipment, weather restraints, etc.). 88-Not Attempted due to Medical Conditions or Safety Concerns. Oral Hygiene (QC): 3 (Min assist sitting at sink to brush dentures, and place in mouth effectively.) Shower/Bathe Self (QC): 3 (Mod assist overall in shower.) Upper Body Dressing (QC): 3 (Min assist) Lower Body Dressing (QC): 2 (Pt. requires max assist to don brief and shorts.) On/Off Footwear: 2 Other Treatment Pt. agrees to work with OT. Pt. completes shower/dressing in bathroom. Transferred to wheelchair via walker with min assist. Pt. completed grooming tasks seated at wheelchair. After this, pt. is taken to therapy gym to complete fine motor strengthening tasks with fine motor pinch activity. Tolerated this well. Pt. taken back to room. Transferred to lift chair with min assist and walker. All needs met. Education OT Patient Education: Correct positioning, Exercise program, Modified ADL techniques, Progress toward Goal/Update tx plan, Purpose of tx/functional activities, Reviewed precautions, Rehab process, Transfer techniques Teaching Recipient: Patient Teaching Methods: Demonstration, Discussion Response to Teaching: Verbalize Understanding, Return Demonstration, Reinforcement Needed OT Short Term Goals Short Term Goals Time Frame: Aug 22, 2020 Eatin Oral hygiene: 4 Toileting hygiene: 3 Shower/bathe self: 3 Upper body dressin Lower body dressin Putting on/taking off footwear: 3 (With AE) OT Urogynecology Physician Goals Urogynecology Physician Goals Time Frame: Sep 05, 2020 Eating (QC): 6 Oral Hygiene (QC): 6 Toileting Hygiene (QC): 6 Shower/Bathe Self (QC): 4 Upper Body Dressing (QC): 6 Lower Body Dressing (QC): 4 On/Off Footwear (QC): 4 Additional Goals: 1-Demonstrate ADL Tasks, 2-Verbalize Understanding, 3- ImproveStrength/Sallie 1=Demonstrate adherence to instructed precautions during ADL tasks. 2=Patient will verbalize/demonstrate understanding of assistive devices/modifications for ADL. 3=Patient will improve strength/tolerance for activity to enable patient to perform ADL's. OT Education/Plan Problem List/Assessment Assessment: Decreased Activ Tolerance, Decreased UE Strength, Dependent T ransfers, Impaired I ADL's, Impaired Self-Care Skills Discharge Recommendations Plan/Recommendations: Continue POC Therapy Discharge Recommendati: Post Acute OT Treatment Plan/Plan of Care Treatment,Training & Education: Yes Patient would benefit from OT for education, treatment and training to promote independence in ADL's, mobility, safety and/or upper extremity function for ADL's. Plan of Care: ADL Retraining, Functional Mobility, Group Exercise/Act as Ind, UE Funct Exercise/Act Treatment Duration: Sep 05, 2020 Frequency: At least 5 of 7 days/Wk (IRF) Estimated Hrs Per Day: 1.5 hours per day Agreement: Yes Rehab Potential: Fair Time/GCodes Start Time: 09:00 Stop Time: 10:00 Total Time Billed (hr/min): 60 Billed Treatment Time 1, ADL x 45minutes, FA x 15minutes TASH PASCUAL OT Aug 20, 2020 11:36
--- NOTE | 2020-08-20 12:07 | Physical Therapy Daily Note ---
PT Daily Note-Current Subjective Pt. agrees to Rx. States he has no step into his house and inside has steps in to a family room but doesnt have to go there. Pt. shares that he has had multiple falls in the past 3-4 yrs and feels vulnerable on his feet for gait. Pt explains his right knee issues and that the pain in this knee keeps him more sedentary Pain Location: No Pain Reported Mental Status Patient Orientation: Person, Place, [place] Attachments: Other-See Comments (mask while out of room) Transfers SCALE: Activities may be completed with or without assistive devices. 7-Lxlsinhmgk-tjukdxo completes the activity by him/herself with no assistance from a helper. 5-Set-up or Clean-up Assistance-helper sets up or cleans up; patient completes activity. [place] assists only prior to or following the activity. 4-Supervision or Touching Assistance-helper provides verbal cues and/or touching/steadying and/or contact guard assistance as patient completes activity. Assistance may be provided throughout the activity or intermittently. 3-Partial/Moderate Assistance-helper does LESS THAN HALF the effort. [place] lifts, holds or supports trunk or limbs, but provides less than half the effort. 2-Substantial/Maximal Assistance-helper does MORE THAN HALF the effort. [place] lifts or holds trunk or limbs and provides more than half the effort. 0-Wiiyuhmdg-gococy does ALL the effort. Patient does none of the effort to complete the activity. Or, the assistance of 2 or more helpers is required for the patient to complete the activity. If activity was not attempted, code reason: 7-Patient Refused. 9-Not Applicable-not attempted and the patient did not perform the activity before the current illness, exacerbation or injury. 10-Not Attempted due to Environmental Limitations-(lack of equipment, weather restraints, etc.). 88-Not Attempted due to Medical Conditions or Safety Concerns. Roll Left & Right (QC): 5 Sit to Lying (QC): 5 Lying to Sitting/Side of Bed(Q: 5 Sit to Stand (QC): 4 Chair/Hjw-km-Qlgpu Xfer(QC): 4 sit to stand using lift chair as well as raised seat surface in w/c (with cushions) pt was able to stand 4 trials CGA, 2 trails min assist as pt was retropulsive upon stance. with skilled verbal instruction pt. brought his wt shift forward and stood with better stability Weight Bearing Full Weight Bearing Full Weight Bearing Gait Training Does the Patient Walk?: Yes Walk 10 feet (QC): 4 Walk 50 ft with 2 Turns(QC): 4 Gait Persons Needed: 1 Gait Assistive Device: FWW pt. with CGA ambulated 150ft, 50 ft , 25 ft, w/c behind pt. turns posing more challenge, unable to wears shoes for ambulation as dressings on right heel and edema impede the fit Wheelchair Training Does the Pt Use a Wheelchair?: Yes Wheel 50 ft with 2 turns (QC): 3 Type of Wheelchair: Manual pt. needed skilled verbal instruction for all w/c mob ie braking, locating wheel wrungs and turning and straight ways mobility propulsion Exercises Supine Ex: Bridging, Ankle pumps, Quad Set, Glut sets, Heel Slides, Scooting, Straight leg raise, Hip abd/add Supine Reps: 15 Seated Therapy Exercises: Ankle pumps, Sit to stand, Long arc quads, Hip flexion Seated Reps: 15 NuStep Minutes: 8 NuStep Workload: 3 Assessment Current Status: Good Progress pt. had formerly been cared for at home by his spouse who this past weekend, pt. did not mention this and seems somewhat unaware, although this CDA TEACHER is informed that he was present and knows she passed PT Short Term Goals Short Term Goals Time Frame: Aug 22, 2020 Roll Left & Right: 4 (SBA) Sit to lyin (SBA) Lying to sitting on side of be: 4 (SBA) Sit to stand: 4 (SBA) Chair/qum-vi-aeczl transfer: 4 (SBA) Toilet transfer: 4 (SBA) Car transfer: 4 (SBA) Walk 10 feet: 4 (CGA) Walk 50 feet with two turns: 4 (CGA) Walk 150 feet: 4 (CGA) Walking 10ft on uneven surface: 3 (min) 1 step (curb): 3 (min) Does pt use a wc or scooter: Yes Wheel 50ft w/2 turns: 4 (SBA) Wheel 150 feet: 4 (SBA) Type: Manual PT Recruit Instructor Goals Recruit Instructor Goals PT Prison Goals Time Frame: Sep 05, 2020 Roll Left & Right (QC): 5 Sit to Lying (QC): 5 Lying-Sitting on Side/Bed(QC): 5 Sit to Stand (QC): 5 Chair/Vea-vr-Unzwp Xfer(QC): 5 Toilet Transfer (QC): 5 Car Transfer (QC): 5 Does the Patient Walk: Yes Walk 10 feet (QC): 5 Walk 50ft with 2 Turns (QC): 5 Walk 150 ft (QC): 5 Walking 10ft on Uneven Surface: 5 1 Step (curb) (QC): 5 4 Steps (QC): 5 12 Steps (QC): 9 Picking up an Object (QC): 5 Does the Pt use WC or Scooter?: No Wheel 50 feet with 2 turns (QC: 5 Type: Manual Wheel 150 feet: 5 Type: Manual PT Plan Treatment/Plan Treatment Plan: Continue Plan of Care Treatment Plan: Bed Mobility, Education, Functional Activity Sallie, Functional Strength, Group Therapy, Gait, Safety, Therapeutic Exercise, Transfers Treatment Duration: Sep 05, 2020 Frequency: At least 5 of 7 days/Wk (IRF) Estimated Hrs Per Day: 1.5 hours per day Patient and/or Family Agrees t: Yes Safety Risks/Education Patient Education: Gait Training, Transfer Techniques, Correct Positioning, W/C Management, Disease Process, Safety Issues Teaching Recipient: Patient Teaching Methods: Demonstration, Discussion Response to Teaching: Verbalize Understanding, Return Demonstration, Reinforcement Needed Time/GCodes Time In: 1100 Time Out: 1200 Total Billed Treatment Time: 60 Total Billed Treatment 1,FA20m,GT15m,EX15m,w/c 10m WALTER PEREZ PTA Aug 20, 2020 12:07
--- NOTE | 2020-08-20 12:44 | Occupational Ther Daily Note ---
OT Current Status-Daily Note Subjective No pain reported. Appearance Pt. up in chair. Has just received tray. Mental Status/Objective Patient Orientation: Person, Place ADL-Treatment Therapy Code Descriptions/Definitions Functional [place] Measure: 0=Not Assessed/NA 4=Minimal Assistance 1=Total Assistance 5=Supervision or Setup 2=Maximal Assistance 6=Modified [place] 3=Moderate Assistance 7=Complete IndependenceSCALE: Activities may be completed with or without assistive devices. 8-Zqhhekhebc-hkfyipv completes the activity by him/herself with no assistance from a helper. 5-Set-up or Clean-up Assistance-helper sets up or cleans up; patient completes activity. [place] assists only prior to or following the activity. 4-Supervision or Touching Assistance-helper provides verbal cues and/or touching/steadying and/or contact guard assistance as patient completes activity. Assistance may be provided throughout the activity or intermittently. 3-Partial/Moderate Assistance-helper does LESS THAN HALF the effort. [place] lifts, holds or supports trunk or limbs, but provides less than half the effort. 2-Substantial/Maximal Assistance-helper does MORE THAN HALF the effort. [place] lifts or holds trunk or limbs and provides more than half the effort. 5-Osgcmnijd-vyazsk does ALL the effort. Patient does none of the effort to complete the activity. Or, the assistance of 2 or more helpers is required for the patient to complete the activity. If activity was not attempted, code reason: 7-Patient Refused. 9-Not Applicable-not attempted and the patient did not perform the activity before the current illness, exacerbation or injury. 10-Not Attempted due to Environmental Limitations-(lack of equipment, weather restraints, etc.). 88-Not Attempted due to Medical Conditions or Safety Concerns. Eating (QC): 6 Other Treatment Pt. up in chair. Required assistance to open water bottle, but able to open diet coke can, and to pour can. Pt. able to set up rest of his food. OT and pt. talked about equipment needs for home. Pt. verbalizes that he has a new walk in shower with seat in it, that was installed recently. He has his walker. Pt. has attempted multiple times to use adaptive equipment for dressing needs, but still has difficulty with this. Will wait to recommend this depending on how pt. does going forward. Pt. was still eating lunch when OT left room. All needs were met for pt. Education OT Patient Education: Correct positioning, Modified ADL techniques, Progress toward Goal/Update tx plan, Purpose of tx/functional activities, Reviewed precautions, Rehab process, Transfer techniques Teaching Recipient: Patient Teaching Methods: Demonstration, Discussion Response to Teaching: Verbalize Understanding, Return Demonstration OT Short Term Goals Short Term Goals Time Frame: Aug 22, 2020 Eatin Oral hygiene: 4 Toileting hygiene: 3 Shower/bathe self: 3 Upper body dressin Lower body dressin Putting on/taking off footwear: 3 (With AE) OT Ankle Patch Molder Goals Ankle Patch Molder Goals Time Frame: Sep 05, 2020 Eating (QC): 6 Oral Hygiene (QC): 6 Toileting Hygiene (QC): 6 Shower/Bathe Self (QC): 4 Upper Body Dressing (QC): 6 Lower Body Dressing (QC): 4 On/Off Footwear (QC): 4 Additional Goals: 1-Demonstrate ADL Tasks, 2-Verbalize Understanding, 3- ImproveStrength/Sallie 1=Demonstrate adherence to instructed precautions during ADL tasks. 2=Patient will verbalize/demonstrate understanding of assistive dev ices/modifications for ADL. 3=Patient will improve strength/tolerance for activity to enable patient to perform ADL's. OT Education/Plan Problem List/Assessment Assessment: Decreased Activ Tolerance, Impaired I ADL's, Impaired Self-Care Skills Discharge Recommendations Plan/Recommendations: Continue POC Therapy Discharge Recommendati: Post Acute OT Treatment Plan/Plan of Care Treatment,Training & Education: Yes Patient would benefit from OT for education, treatment and training to promote independence in ADL's, mobility, safety and/or upper extremity function for ADL's. Plan of Care: ADL Retraining, Functional Mobility, Group Exercise/Act as Ind, UE Funct Exercise/Act Treatment Duration: Sep 05, 2020 Frequency: At least 5 of 7 days/Wk (IRF) Estimated Hrs Per Day: 1.5 hours per day Agreement: Yes Rehab Potential: Fair Time/GCodes Start Time: 12:00 Stop Time: 12:15 Total Time Billed (hr/min): 15 Billed Treatment Time 1, ADL TASH PASCUAL OT Aug 20, 2020 12:44
--- NOTE | 2020-08-20 13:32 | Physical Therapy Daily Note ---
PT Daily Note-Current Subjective Pt. states he feels he is doing so much better than he has for quite some time. Pt. does state he is not a fan of learning to use w/c as it is awkward. Pt. does admit he has had numerous falls historically. Pt. states previous to this when he fell he would have his bring him a chair that he would crawl to and use to get back up Pain Location: No Pain Reported Mental Status Patient Orientation: [place] Transfers SCALE: Activities may be completed with or without assistive devices. 2-Tqqmwpmtzn-tbyrkvp completes the activity by him/herself with no assistance from a helper. 5-Set-up or Clean-up Assistance-helper sets up or cleans up; patient completes activity. [place] assists only prior to or following the activity. 4-Supervision or Touching Assistance-helper provides verbal cues and/or touching/steadying and/or contact guard assistance as patient completes activity. Assistance may be provided throughout the activity or intermittently. 3-Partial/Moderate Assistance-helper does LESS THAN HALF the effort. [place] lifts, holds or supports trunk or limbs, but provides less than half the effort. 2-Substantial/Maximal Assistance-helper does MORE THAN HALF the effort. [place] lifts or holds trunk or limbs and provides more than half the effort. 6-Dsjdpaagu-dfykkv does ALL the effort. Patient does none of the effort to complete the activity. Or, the assistance of 2 or more helpers is required for the patient to complete the activity. If activity was not attempted, code reason: 7-Patient Refused. 9-Not Applicable-not attempted and the patient did not perform the activity be fore the current illness, exacerbation or injury. 10-Not Attempted due to Environmental Limitations-(lack of equipment, weather restraints, etc.). 88-Not Attempted due to Medical Conditions or Safety Concerns. Sit to Stand (QC): 5 Chair/Aif-xm-Pgmxl Xfer(QC): 4 Toilet Transfer (QC): 4 (using bathroom rail) emphasis on SPTs chair to chair at 90degree angles with FWW CGA and good outcomes 5 trials Weight Bearing Full Weight Bearing Full Weight Bearing Gait Training 30ftx2 FWW CGA small steps no LOB, toe out alignment Wheelchair Training Does the Pt Use a Wheelchair?: Yes Wheel 50 ft with 2 turns (QC): 3 Type of Wheelchair: Manual pt. was given skilled instruction in braking and turns and retro, pt with awkward approach to all struggles with turns and management of w/c Exercises Seated Therapy Exercises: Sit to stand Seated Reps: 9 Assessment Current Status: Good Progress pt. at risk for falls with gait but resists w/c mob training PT Short Term Goals Short Term Goals Time Frame: Aug 22, 2020 Roll Left & Right: 4 (SBA) Sit to lyin (SBA) Lying to sitting on side of be: 4 (SBA) Sit to stand: 4 (SBA) Chair/wcr-oh-xstca transfer: 4 (SBA) Toilet transfer: 4 (SBA) Car transfer: 4 (SBA) Walk 10 feet: 4 (CGA) Walk 50 feet with two turns: 4 (CGA) Walk 150 feet: 4 (CGA) Walking 10ft on uneven surface: 3 (min) 1 step (curb): 3 (min) Does pt use a wc or scooter: Yes Wheel 50ft w/2 turns: 4 (SBA) Wheel 150 feet: 4 (SBA) Type: Manual PT Rigger Third Goals Rigger Third Goals PT Shelter Goals Time Frame: Sep 05, 2020 Roll Left & Right (QC): 5 Sit to Lying (QC): 5 Lying-Sitting on Side/Bed(QC): 5 Sit to Stand (QC): 5 Chair/Bxc-go-Nqovg Xfer(QC): 5 Toilet Transfer (QC): 5 Car Transfer (QC): 5 Does the Patient Walk: Yes Walk 10 feet (QC): 5 Walk 50ft with 2 Turns (QC): 5 Walk 150 ft (QC): 5 Walking 10ft on Uneven Surface: 5 1 Step (curb) (QC): 5 4 Steps (QC): 5 12 Steps (QC): 9 Picking up an Object (QC): 5 Does the Pt use WC or Scooter?: No Wheel 50 feet with 2 turns (QC: 5 Type: Manual Wheel 150 feet: 5 Type: Manual PT Plan Treatment/Plan Treatment Plan: Continue Plan of Care Treatment Plan: Bed Mobility, Education, Functional Activity Sallie, Functional Strength, Group Therapy, Gait, Safety, Therapeutic Exercise, Transfers Treatment Duration: Sep 05, 2020 Frequency: At least 5 of 7 days/Wk (IRF) Estimated Hrs Per Day: 1.5 hours per day Patient and/or Family Agrees t: Yes Safety Risks/Education Patient Education: Gait Training, Transfer Techniques, Reviewed Use of Ice, W/C Management, Safety Issues Teaching Recipient: Patient Teaching Methods: Demonstration, Discussion Response to Teaching: Verbalize Understanding, Return Demonstration, Reinforcement Needed Time/GCodes Time In: 1300 Time Out: 1330 Total Billed Treatment Time: 30 Total Billed Treatment 1,WC15m,FA15m WALTER PEREZ FRONT END UI DEVELOPER Aug 20, 2020 13:32
[2020-08-20 16:00] VITALS: BP 143/63
[2020-08-20] MEDS: TAMSULOSIN 0.4 MG (FLOMAX) CAP PO SCH (17:12)
[2020-08-20] MEDS: MIRTAZAPINE 15 MG (REMERON) TAB PO SCH (20:54)
[2020-08-20] MEDS: OLANZapine 2.5 MG (ZyPREXA) TAB PO SCH (20:54)
[2020-08-20] MEDS: LATANOPROST 0.005% (XALATAN) OPHTH SOLN 2.5 ML OU SCH (20:54)
[2020-08-20 21:00] VITALS: BP 137/68
--- NOTE | 2020-08-21 05:29 | PM&R Progress Note ---
Subjective HPI/CC On Admission Date Seen by Provider: Aug 21, 2020 Time Seen by Provider: 08:15 Subjective/Events-last exam 08/21/20: Pt doing pretty well Family training in order to bring him to the of his this week Overall doing pretty well 08/20/20: Pt doing pretty well Dr. Doe evaluated him today Hgb 8.7 Potassium 3.4 He fell last night in the bathroom and daughters were aware of that He may very well require a shelter for 24/7 supervision 08/19/20: Patient doing well since last evening Tely reveals AF now Dr De Paz changed pyridium to prn Incontinence last night Ate bfast Venofer yesterday 08/18/20: Patient back and forth between his 's room upstairs since she is dying Slept well last night NSR on Tely Catheter DC Dr De Paz consulted Venofer will be given due to iron def 08/17/20: Patient became confused at midnight Xanax 0.25mg caused a bit of oversedation Patient converted to NSR on Tely HR 50's SLUMS 17 terminal upstairs 08/16/20: Patient doing well Hgb 8.9 Iron level pending Urinary frequency noted No retention noted Remeron started for insomnia Had confusion at 1800 so started antipsychotics and placed dc SLUMS 17 Without his to compensate for him, since she is admitted acute, it is clear how declined he really is Review of Systems General: Fatigue, Malaise Neurological: Weakness, Confusion Objective Exam Vital Signs Vital Signs Date Time Temp Pulse Resp B/P (MAP) Pulse Ox O2 Delivery O2 Flow Rate FiO2 08/22/20 01:00 68 08/21/20 20:15 Room Air 08/21/20 16:18 36.3 20 132/62 (85) 93 Capillary Refill : General Appearance: No Apparent Distress, WD/WN, Chronically ill, Obese HEENT: PERRL/EOMI, Normal ENT Inspection, Pharynx Normal Neck: Full Range of Motion, Normal Inspection, Non Tender, Supple, Carotid Bruit Respiratory: Chest Non Tender, Lungs Clear, No Accessory Muscle Use, No Respiratory Distress, Decreased Breath Sounds Cardiovascular: Regular Rate, Rhythm, No Edema, No Gallop, No JVD, No Murmur, Normal Peripheral Pulses Gastrointestinal: Normal Bowel Sounds, No Organomegaly, No Pulsatile Mass, Non Tender, Soft Back: Normal Inspection, No CVA Tenderness, No Vertebral Tenderness Extremity: Normal Capillary Refill, Normal Inspection, Normal Range of Motion, Non Tender, No Calf Tenderness, No Pedal Edema Neurologic/Psychiatric: Alert, Oriented x3, Abnormal Gait, Depressed Affect, Motor Weakness (generalized) Skin: Normal Color, Warm/Dry Lymphatic: No Adenopathy Results/Procedures Lab Patient resulted labs reviewed. FIM Transfers Therapy Code Descriptions/Definitions Functional [place] Measure: 0=Not Assessed/NA 4=Minimal Assistance 1=Total Assistance 5=Supervision or Setup 2=Maximal Assistance 6=Modified [place] 3=Moderate Assistance 7=Complete IndependenceSCALE: Activities may be completed with or without assistive devices. 9-Zojnezzbvu-nkoorpf completes the activity by him/herself with no assistance from a helper. 5-Set-up or Clean-up Assistance-helper sets up or cleans up; patient completes activity. [place] assists only prior to or following the activity. 4-Supervision or Touching Assistance-helper provides verbal cues and/or touching/steadying and/or contact guard assistance as patient completes activity. Assistance may be provided throughout the activity or intermittently. 3-Partial/Moderate Assistance-helper does LESS THAN HALF the effort. [place] lifts, holds or supports trunk or limbs, but provides less than half the effort. 2-Substantial/Maximal Assistance-helper does MORE THAN HALF the effort. [place] lifts or holds trunk or limbs and provides more than half the effort. 6-Olxpuebyf-prfbyt does ALL the effort. Patient does none of the effort to complete the activity. Or, the assistance of 2 or more helpers is required for the patient to complete the activity. If activity was not attempted, code reason: 7-Patient Refused. 9-Not Applicable-not attempted and the patient did not perform the activity before the current illness, exacerbation or injury. 10-Not Attempted due to Environmental Limitations-(lack of equipment, weather restraints, etc.). 88-Not Attempted due to Medical Conditions or Safety Concerns. Roll Left to Right (QC): 5 Sit to Lying (QC): 5 Sit to Stand (QC): 5 Chair/Brf-cd-Zfbex Xfer(QC): 4 Car Transfer (QC): 3 (mod) Gait Training Does the Patient Walk?: Yes Distance: 5' Walk 10 feet (QC): 4 Walk 50 ft with 2 Turns(QC): 4 Walk 150 ft (QC): 88 Walking 10ft/uneven surface-QC: 88 Gait Persons Needed: 1 Gait Assistive Device: FWW Wheelchair Training Does the Pt Use a Wheelchair?: Yes Distance: 50' Wheel 50 ft with 2 turns (QC): 3 Wheel 150 ft (QC): 88 Type of Wheelchair: Manual Stair Training 1 Step (curb) (QC): 88 4 Steps (QC): 88 12 Steps (QC): 88 Balance Picking up an Object (QC): 88 ADL-Treatment Eating (QC): 6 Oral Hygiene (QC): 3 (Min assist sitting at sink to brush dentures, and place in mouth effectively.) Bathing Location: L Arm, R Arm, L Upper Leg, R Upper Leg, Chest, Abdomen, Perineal Area Shower/Bathe Self (QC): 3 (Mod assist overall in shower.) Upper Body Dressing (QC): 3 (Min assist) Lower Body Dressing (QC): 2 (Pt. requires max assist to don brief and shorts.) On/Off Footwear (QC): 2 Toileting Hygiene (QC): 3 (mod A (bottom care) and pt completes tanisha care in stance with CGA.) Assessment/Plan Assessment and Plan Assess & Plan/Chief Complaint Assessment: Ventricular arrhythmia A fib new onset OAC new HTN Lupus Obesity Urinary retention since dc DC Pneumonitis CRI Dementia SLUMS 17 Sundowning Anemia iron def Plan: Monitor closely Cardiology appreciated Monitor creat Urinary retention management 08/16/20: Dc cath Monitor closely Anti-psychotics 08/17/20: Monitor closely Cardiology appreciated 08/18/20: Venofer iron infusion Support through 's dying process 08/19/20: Monitor incontinence AF on Tely 08/20/20: Monitor closely Venofer 08/21/20: Venofer Tely Monitor closely (1) Ventricular arrhythmia (2) Pneumonitis (3) Knee pain, right (4) Atrial fibrillation (5) Falls frequently (6) Urinary retention (7) Lupus Status: Chronic (8) Hypertension Status: Acute (9) Leg edema Status: Acute (10) Renal insufficiency Status: Acute ELDA LUNA DO Aug 21, 2020 05:29
[2020-08-21 06:00] VITALS: BP 121/60
[2020-08-21] MEDS: VENlafaxine XR 75 MG (EFFEXOR XR) CAP PO SCH (06:07)
[2020-08-21] MEDS: CATHETER FLUSH 10 ML SYR IV SCH ×3 (06:07→20:22)
[2020-08-21] MEDS: AMIODARONE 200 MG (CORDARONE) TAB PO SCH ×2 (08:20→20:21)
[2020-08-21] MEDS: DOCUSATE SODIUM 100 MG (COLACE) CAP PO SCH ×2 (08:20→20:22)
[2020-08-21] MEDS: BUMETANIDE 1 MG (BUMEX) TAB PO SCH (08:21)
[2020-08-21] MEDS: APIXABAN 5 MG (ELIQUIS) TABLET PO SCH ×2 (08:21→20:21)
[2020-08-21] MEDS: polyethylene glycoL POWDER 17 GM (MIRALAX) PACK PO SCH ×2 (08:24→19:31)
[2020-08-21] MEDS: SENNA W/DOCUSATE (SENOKOT S) TABLET PO SCH ×2 (08:24→19:31)
[2020-08-21 08:25] VITALS: BP 123/60
--- NOTE | 2020-08-21 09:07 | Speech Therapy Daily Note ---
Speech Daily Progress Note Subjective Date Seen by Provider: Aug 21, 2020 Time Seen by Provider: 00:30 Pt was alert and pleasant. Pt agreed to ST. Pt was finishing breakfast. Objective Pt completed problem solving tasks related to daily needs at 80% or greater with no cues. Assessment Assessment Current Status: Fair Progress Treatment Plan Continue Plan of Care Speech Short Term Goals Short Term Goals Short Term Goals Pt will complete memory tasks related to daily needs at 80% or greater with minimal cues. Pt will complete safety awareness tasks related to daily needs at 80% or greater with minimal cues. Pt will complete problem solving tasks related to daily needs at 80% or greater with minimal cues. Speech Group Home Goals Preservative Filler Machine Operator Goals Pt will improve cognitive communication abilities so that he can complete daily tasks with minimal assist. Speech-Plan Patient/Family Goals Patient/Family Goals: Pt plans to return home where his daughters will aid in his ADLs and care needs. Treatment Plan Speech Therapy Treatment Plan: Continue Plan of Care Treatment Duration: Aug 24, 2020 Frequency: 4 times per week (Patient will receive skilled ST 4-5x per week) Estimated Hrs Per Day: .5 hour per day Rehab Potential: Fair Barriers to Learning: Patient's recent decline in medical status, age Pt/Family Agrees to Plan: Yes Safety Risks/Education Teaching Recipient: Patient Teaching Methods: Demonstration, Discussion Response to Teaching: Verbalize Understanding Education Topics Provided: Safety and communication. Time Speech Therapy Time In: 08:30 Speech Therapy Time Out: 09:00 Total Billed Time: 30 Billed Treatment Time 1, SUSANA Mccann Aug 21, 2020 09:07
--- NOTE | 2020-08-21 09:21 | Cardiology Progress Note ---
Subjective Date Seen by Provider: Aug 21, 2020 Time Seen by Provider: 08:00 Subjective/Events-last exam Patient is sitting up in chair, no new complaints. Denies any chest pain or dyspnea. Review of Systems General: No Chills, No Night Sweats; Fatigue, Malaise; No Appetite, No Other HEENT: No Head Aches, No Visual Changes, No Eye Pain, No Ear Pain, No Dysphasia, No Sinus Congestion, No Post Nasal Drip, No Sore Throat, No Other Pulmonary: No Dyspnea, No Cough, No Pleuritic Chest Pain, No Other Cardiovascular: Edema; No: Chest Pain, Palpitations, Orthopnea, Paroxysmal Noc. Dyspnea, Lt Headedness, Other Objective-Cardiology Exam Last Set of Vital Signs Vital Signs 08/21/20 08/21/20 08/21/20 06:00 08:25 09:31 Temp 37.2 Pulse 75 Resp 17 B/P (MAP) 123/60 (81) Pulse Ox 90 O2 Delivery Room Air Capillary Refill : I&O Intake and Output 08/21/20 00:00 Intake Total 1680 ml Balance 1680 ml Intake Oral 1680 ml # Voids 9 # Urine Diapers 1 # Bowel Movements 1 General: Alert, Oriented X3, Cooperative HEENT: Atraumatic, PERRLA Neck: Supple, No JVD, No Thyromegaly Lungs: Clear to Auscultation, Normal Air Movement Heart: Regular Rate, Normal S1, Normal S2, No Murmurs Abdomen: Normal Bowel Sounds, Soft, No Tenderness, No Hepatosplenomegaly, No Masses Extremities: No Clubbing, No Cyanosis, No Edema, Normal Pulses, No Tenderness/Swelling Neuro: Normal Speech, Cranial Nerves 3-12 NL Psych/Mental Status: Mental Status NL, Mood NL A/P-Cardiology Admission Diagnosis Wide-complex tachycardia PAF HTN Dizziness Assessment/Plan Status post wide-complex tachycardia, multiple episodes, frequent PVCs, symptomatic. most probably paroxysmal atrial fibrillation with aberrant conduction, started on amiodarone, Eliquis. Continue to monitor. 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 Feeling better at this time Hypertension, controlled, continue to monitor blood pressure Echocardiogram showed normal LV size and function, EF 60%, moderate mitral regurgitation, mild tricuspid regurgitation. Left atrial dilatation 5.1 cm. Generalized weakness, orthostatic dizziness and lightheadedness, unsteady gait, receiving physical and occupational therapy Urinary tract infection, improving, managed by primary care team Patient was seen and evaluated with Petra, examination performed, management plan was discussed, agree with the current scribed note, I made few changes to the note using Italic font Patient was seen at bedside, sitting comfortably, no new complaint. Continue on current medication, no changes are recommended. Supervisory-Addendum Brief Supervisory Addendum Participated in pt care: history, MDM, physical Personally performed: exam, history, MDM Care discussed with: PETRA BOLES Aug 21, 2020 09:21 TERESA HU MD Aug 21, 2020 13:09
--- NOTE | 2020-08-21 10:57 | Physical Therapy Daily Note ---
PT Daily Note-Current Subjective Patient reports no pain pre tx, seated upright in chair. Noted his R knee was feeling "pretty good" today. Consented to family training visit for and visitation services. Appearance Patient seated upright in reclining chair post tx, with call button within reach, and tray table beside him. Patient and family stated they had no further questions, but were encouraged to let therapy know if they have any further question/concerns. Mental Status Patient Orientation: Person, Confused, Place, Time, Mumbles, Normal For Age telemetry Transfers SCALE: Activities may be completed with or without assistive devices. 9-Lwqjakkevz-uexscti completes the activity by him/herself with no assistance from a helper. 5-Set-up or Clean-up Assistance-helper sets up or cleans up; patient completes activity. [place] assists only prior to or following the activity. 4-Supervision or Touching Assistance-helper provides verbal cues and/or touching/steadying and/or contact guard assistance as patient completes activity. Assistance may be provided throughout the activity or intermittently. 3-Partial/Moderate Assistance-helper does LESS THAN HALF the effort. [place] lifts, holds or supports trunk or limbs, but provides less than half the effort. 2-Substantial/Maximal Assistance-helper does MORE THAN HALF the effort. [place] lifts or holds trunk or limbs and provides more than half the effort. 9-Nqmgdfxdj-jzuikq does ALL the effort. Patient does none of the effort to complete the activity. Or, the assistance of 2 or more helpers is required for the patient to complete the activity. If activity was not attempted, code reason: 7-Patient Refused. 9-Not Applicable-not attempted and the patient did not perform the activity before the current illness, exacerbation or injury. 10-Not Attempted due to Environmental Limitations-(lack of equipment, weather restraints, etc.). 88-Not Attempted due to Medical Conditions or Safety Concerns. Sit to Stand (QC): 4 Chair/Rhu-xy-Gjdkf Xfer(QC): 4 Toilet Transfer (QC): 4 Car Transfer (QC): 3 (Patient needs assistance with legs with getting in/out of vehicle.) CGA. Patient needs cueing to move continue to turn walker and hips before beginning the descent to chair/toilet process. This information was given to family. Weight Bearing Full Weight Bearing Full Weight Bearing Gait Training Does the Patient Walk?: Yes Distance: 100' x2 Walk 10 feet (QC): 4 Walk 50 ft with 2 Turns(QC): 4 Gait Assistive Device: FWW Patient requires cueing to keep walker close to body, and to stand up tall. Family was instructed in giving regular cueing to decrease likelihood of falls with ambulation. Wheelchair Training Does the Pt Use a Wheelchair?: Yes Instructed patient family on how to maneuvering w/c, and the importance of pl acing locks on wheelchair before moving. Stair Training Stair Training: Handrails/: 1 handrail, uses walker #of Steps: 1 1 Step (curb) (QC): 4 (CGA) Instructed family and patient to ascend step with L foot going up first, and to descend with R foot going down first. Patient required cueing but did not re quire assistance with step navigation. Neuromuscular Worked on patient sitting and standing dynamic and static balance with ball toss in sitting and standing position, and ball kicks in sitting position. Patient has tendency toward L body lean, so cued patient to try to maintained centered position while seated. Treatments Co-treated with OT secondary to patient decreased functional mobility, difficulty with transfers, and overall family education required for safety with patients 's in the coming days. PT focused on transfer techniques and positioning, OT focused on ADLs and balance outside of [place] with UE reaching. Assessment Current Status: Fair Progress Patient will benefit from continued interventions focusing on strengthening, functional mobility, and transfer techniques for safe return home and safe mobility at upcoming and visitation services. PT Short Term Goals Short Term Goals Time Frame: Aug 22, 2020 Roll Left & Right: 4 (SBA) Sit to lyin (SBA) Lying to sitting on side of be: 4 (SBA) Sit to stand: 4 (SBA) Chair/gew-mr-imqfp transfer: 4 (SBA) Toilet transfer: 4 (SBA) Car transfer: 4 (SBA) Walk 10 feet: 4 (CGA) Walk 50 feet with two turns: 4 (CGA) Walk 150 feet: 4 (CGA) Walking 10ft on uneven surface: 3 (min) 1 step (curb): 3 (min) Does pt use a wc or scooter: Yes Wheel 50ft w/2 turns: 4 (SBA) Wheel 150 feet: 4 (SBA) Type: Manual PT Care Home Goals Care Home Goals PT Care Home Goals Time Frame: Sep 05, 2020 Roll Left & Right (QC): 5 Sit to Lying (QC): 5 Lying-Sitting on Side/Bed(QC): 5 Sit to Stand (QC): 5 Chair/Lio-yg-Mzptp Xfer(QC): 5 Toilet Transfer (QC): 5 Car Transfer (QC): 5 Does the Patient Walk: Yes Walk 10 feet (QC): 5 Walk 50ft with 2 Turns (QC): 5 Walk 150 ft (QC): 5 Walking 10ft on Uneven Surface: 5 1 Step (curb) (QC): 5 4 Steps (QC): 5 12 Steps (QC): 9 Picking up an Object (QC): 5 Does the Pt use WC or Scooter?: No Wheel 50 feet with 2 turns (QC: 5 Type: Manual Wheel 150 feet: 5 Type: Manual PT Plan Problem List Problem List: Activity Tolerance, Functional Strength, Safety, Balance, Gait, Transfer, Bed Mobility, ROM Treatment/Plan Treatment Plan: Continue Plan of Care Treatment Plan: Bed Mobility, Education, Functional Activity Sallie, Functional Strength, Group Therapy, Gait, Safety, Therapeutic Exercise, Transfers Treatment Duration: Sep 05, 2020 Frequency: At least 5 of 7 days/Wk (IRF) Estimated Hrs Per Day: 1.5 hours per day Patient and/or Family Agrees t: Yes Safety Risks/Education Patient Education: Gait Training, Transfer Techniques, Steps, Correct Positioning, W/C Management, Instructions to Caregiver, Safety Issues Teaching Recipient: Patient, Family Teaching Methods: Demonstration, Discussion Response to Teaching: Verbalize Understanding, Return Demonstration Family educated with demonstration with patient and verbal education Time/GCodes Time In: 1000 Time Out: 1100 Total Billed Treatment Time: 60 Total Billed Treatment 1 visit: FA x3: 45' EX: 15' JIMENEZ HOBSON PT Aug 21, 2020 10:57
[2020-08-21] MEDS: HYDROXYCHLOROQUINE 200 MG (PLAQUENIL) TAB PO SCH (12:17)
--- NOTE | 2020-08-21 13:14 | Occupational Ther Daily Note ---
OT Current Status-Daily Note Subjective No pain reported. Mental Status/Objective Patient Orientation: Person, Place ADL-Treatment Therapy Code Descriptions/Definitions Functional [place] Measure: 0=Not Assessed/NA 4=Minimal Assistance 1=Total Assistance 5=Supervision or Setup 2=Maximal Assistance 6=Modified [place] 3=Moderate Assistance 7=Complete IndependenceSCALE: Activities may be completed with or without assistive devices. 0-Zluvntames-mkyajnw completes the activity by him/herself with no assistance from a helper. 5-Set-up or Clean-up Assistance-helper sets up or cleans up; patient completes activity. [place] assists only prior to or following the activity. 4-Supervision or Touching Assistance-helper provides verbal cues and/or touching/steadying and/or contact guard assistance as patient completes activity. Assistance may be provided throughout the activity or intermittently. 3-Partial/Moderate Assistance-helper does LESS THAN HALF the effort. [place] lifts, holds or supports trunk or limbs, but provides less than half the effort. 2-Substantial/Maximal Assistance-helper does MORE THAN HALF the effort. [place] lifts or holds trunk or limbs and provides more than half the effort. 0-Pblogoatn-zjyhhz does ALL the effort. Patient does none of the effort to complete the activity. Or, the assistance of 2 or more helpers is required for the patient to complete the activity. If activity was not attempted, code reason: 7-Patient Refused. 9-Not Applicable-not attempted and the patient did not perform the activity before the current illness, exacerbation or injury. 10-Not Attempted due to Environmental Limitations-(lack of equipment, weather restraints, etc.). 88-Not Attempted due to Medical Conditions or Safety Concerns. Eating (QC): 6 Upper Body Dressing (QC): 3 (Min assist) Lower Body Dressing (QC): 2 On/Off Footwear: 2 Toilet Transfer (QC): 3 (Min assist for toilet transfer to educate family.) Other Treatment Pt. seen this date for family training and partial co-treatment with PT due to low endurance/need of skilled instruction x 2. OT assisted pt. first with dressing task before family arrived. When family arrived, PT/OT worked together. OT educated family about goals for home, equipment needed, and assisted with transfers. PT assisted with transfers as well and educated family in correct technique for safe and functional transfers at home. Pt. to leave this week for spouse's . Pt. practiced step with min/mod x 2 for safety, as family has a step to get into home. Pt. practiced car transfer with assist needed to get bilateral LE safely into car. Practiced getting onto/off of toilet for toileting task. Required min/mod assist for this. Family is educated about pt's current status. Family will have grandson present during the day of . He is a nurse and can assist with toileting. Family ed ucated about incontinence, and best techniques overall to assist him. Pt. stood and worked on standing balance dynamically in gym with PT assist while OT practiced ball toss/catch with him. Pt. tolerated well with needing to hold walker several times for safety. Pt. taken back to room via wheelchair, and then transferred to reclining chair with mod assist. All needs met. Family verbalizes understanding of pt's needs. Education OT Patient Education: Correct positioning, Modified ADL techniques, Progress toward Goal/Update tx plan, Purpose of tx/functional activities, Reviewed precautions, Rehab process, Transfer techniques Teaching Recipient: Patient, Family Teaching Methods: Demonstration, Discussion Response to Teaching: Verbalize Understanding, Return Demonstration, Reinforcement Needed OT Short Term Goals Short Term Goals Time Frame: Aug 22, 2020 Eatin Oral hygiene: 4 Toileting hygiene: 3 Shower/bathe self: 3 Upper body dressin Lower body dressin Putting on/taking off footwear: 3 (With AE) OT Nursing Home Goals Lieutenant Shift Supervisor Goals Time Frame: Sep 05, 2020 Eating (QC): 6 Oral Hygiene (QC): 6 Toileting Hygiene (QC): 6 Shower/Bathe Self (QC): 4 Upper Body Dressing (QC): 6 Lower Body Dressing (QC): 4 On/Off Footwear (QC): 4 Additional Goals: 1-Demonstrate ADL Tasks, 2-Verbalize Understanding, 3- ImproveStrength/Sallie 1=Demonstrate adherence to instructed precautions during ADL tasks. 2=Patient will verbalize/demonstrate understanding of assistive devices/modifications for ADL. 3=Patient will improve strength/tolerance for activity to enable patient to perform ADL's. OT Education/Plan Problem List/Assessment Assessment: Decreased Activ Tolerance, Decreased UE Strength, Dependent Transfers, Impaired Funct Balance, Impaired I ADL's, Impaired Self-Care Skills, Restricted Funct UE ROM Discharge Recommendations Plan/Recommendations: Continue POC Therapy Discharge Recommendati: Post Acute OT Treatment Plan/Plan of Care Treatment,Training & Education: Yes Patient would benefit from OT for education, treatment and training to promote independence in ADL's, mobility, safety and/or upper extremity function for ADL's. Plan of Care: ADL Retraining, Functional Mobility, Group Exercise/Act as Ind, UE Funct Exercise/Act Treatment Duration: Sep 05, 2020 Frequency: At least 5 of 7 days/Wk (IRF) Estimated Hrs Per Day: 1.5 hours per day Agreement: Yes Rehab Potential: Fair Time/GCodes Start Time: 09:45 Stop Time: 11:00 Total Time Billed (hr/min): 75 Billed Treatment Time 0152-5463 1, ADL x 15minutes [id number] FA x 60minutes- Co-treatment with PT. Please see above note for designated roles. TASH PASCUAL OT Aug 21, 2020 13:14
--- NOTE | 2020-08-21 15:04 | Physical Therapy Daily Note ---
PT Daily Note-Current Subjective Patient was asleep, supine post tx. Patient consented to PT, agreed to bed exercises/mobility. Appearance Patient supine in bed, eyes closed. Tray table nearby and call button within reach. Mental Status Patient Orientation: Person, Confused, Place telemetry Transfers SCALE: Activities may be completed with or without assistive devices. 4-Mlfxenjmcg-wnyrhpx completes the activity by him/herself with no assistance from a helper. 5-Set-up or Clean-up Assistance-helper sets up or cleans up; patient completes activity. [place] assists only prior to or following the activity. 4-Supervision or Touching Assistance-helper provides verbal cues and/or touching/steadying and/or contact guard assistance as patient completes activity. Assistance may be provided throughout the activity or intermittently. 3-Partial/Moderate Assistance-helper does LESS THAN HALF the effort. [place] lifts, holds or supports trunk or limbs, but provides less than half the effort. 2-Substantial/Maximal Assistance-helper does MORE THAN HALF the effort. [place] lifts or holds trunk or limbs and provides more than half the effort. 2-Nreabpxwj-gfyabg does ALL the effort. Patient does none of the effort to complete the activity. Or, the assistance of 2 or more helpers is required for the patient to complete the activity. If activity was not attempted, code reason: 7-Patient Refused. 9-Not Applicable-not attempted and the patient did not perform the activity before the current illness, exacerbation or injury. 10-Not Attempted due to Environmental Limitations-(lack of equipment, weather restraints, etc.). 88-Not Attempted due to Medical Conditions or Safety Concerns. Roll Left & Right (QC): 6 Weight Bearing Full Weight Bearing Full Weight Bearing Exercises Supine Ex: Ankle pumps, Quad Set, Glut sets, Heel Slides, Short Arc Quads (blue bolster), Straight leg raise, Hip abd/add (mini ball) Supine Reps: 20 Treatments LE strengthening, ROM, bed mobility Assessment Current Status: Fair Progress Patient was very tired with exercises, but was able to complete all reps. Patient did not complain of knee pain with exercises. PT Short Term Goals Short Term Goals Time Frame: Aug 22, 2020 Roll Left & Right: 4 (SBA) Sit to lyin (SBA) Lying to sitting on side of be: 4 (SBA) Sit to stand: 4 (SBA) Chair/rgn-zt-jboag transfer: 4 (SBA) Toilet transfer: 4 (SBA) Car transfer: 4 (SBA) Walk 10 feet: 4 (CGA) Walk 50 feet with two turns: 4 (CGA) Walk 150 feet: 4 (CGA) Walking 10ft on uneven surface: 3 (min) 1 step (curb): 3 (min) Does pt use a wc or scooter: Yes Wheel 50ft w/2 turns: 4 (SBA) Wheel 150 feet: 4 (SBA) Type: Manual PT Rda Goals Correction Goals PT Rda Goals Time Frame: Sep 05, 2020 Roll Left & Right (QC): 5 Sit to Lying (QC): 5 Lying-Sitting on Side/Bed(QC): 5 Sit to Stand (QC): 5 Chair/Fah-za-Gvrxw Xfer(QC): 5 Toilet Transfer (QC): 5 Car Transfer (QC): 5 Does the Patient Walk: Yes Walk 10 feet (QC): 5 Walk 50ft with 2 Turns (QC): 5 Walk 150 ft (QC): 5 Walking 10ft on Uneven Surface: 5 1 Step (curb) (QC): 5 4 Steps (QC): 5 12 Steps (QC): 9 Picking up an Object (QC): 5 Does the Pt use WC or Scooter?: No Wheel 50 feet with 2 turns (QC: 5 Type: Manual Wheel 150 feet: 5 Type: Manual PT Plan Problem List Problem List: Activity Tolerance, Functional Strength, Safety, Balance, Gait, Transfer, Bed Mobility, ROM Treatment/Plan Treatment Plan: Continue Plan of Care Treatment Plan: Bed Mobility, Education, Functional Activity Sallie, Functional Strength, Group Therapy, Gait, Safety, Therapeutic Exercise, Transfers Treatment Duration: Sep 05, 2020 Frequency: At least 5 of 7 days/Wk (IRF) Estimated Hrs Per Day: 1.5 hours per day Patient and/or Family Agrees t: Yes Time/GCodes Time In: 1400 Time Out: 1415 Total Billed Treatment Time: 15 Total Billed Treatment 1 visit: EX: 15' SABINA YU PT Aug 21, 2020 15:04
[2020-08-21 16:18] VITALS: BP 132/62
[2020-08-21] MEDS: TAMSULOSIN 0.4 MG (FLOMAX) CAP PO SCH (16:37)
[2020-08-21] MEDS: OLANZapine 2.5 MG (ZyPREXA) TAB PO SCH (20:21)
[2020-08-21] MEDS: MIRTAZAPINE 15 MG (REMERON) TAB PO SCH (20:21)
[2020-08-21] MEDS: LATANOPROST 0.005% (XALATAN) OPHTH SOLN 2.5 ML OU SCH (21:30)
[2020-08-22 05:58] VITALS: BP 145/67
[2020-08-22] MEDS: CATHETER FLUSH 10 ML SYR IV SCH ×3 (06:15→20:58)
[2020-08-22] MEDS: VENlafaxine XR 75 MG (EFFEXOR XR) CAP PO SCH (06:17)
[2020-08-22 08:00] VITALS: BP 132/69
--- NOTE | 2020-08-22 08:29 | Cardiology Progress Note ---
Subjective Date Seen by Provider: Aug 22, 2020 Time Seen by Provider: 08:28 Subjective/Events-last exam Sitting up in chair, no new complaints, denies any chest pain or dyspnea. Review of Systems General: No Chills, No Night Sweats, No Fatigue, No Malaise, No Appetite, No O ther HEENT: No Head Aches, No Visual Changes, No Eye Pain, No Ear Pain, No Dysphasia, No Sinus Congestion, No Post Nasal Drip, No Sore Throat, No Other Pulmonary: No Dyspnea, No Cough, No Pleuritic Chest Pain, No Other Cardiovascular: No: Chest Pain, Palpitations, Orthopnea, Paroxysmal Noc. Dyspnea, Edema, Lt Headedness, Other Objective-Cardiology Exam Last Set of Vital Signs Vital Signs 08/22/20 08/22/20 08/22/20 08/22/20 05:58 08:00 09:00 12:28 Temp 36.6 Pulse 75 Resp 17 B/P (MAP) 132/69 (90) Pulse Ox 90 O2 Delivery Room Air Capillary Refill : I&O Intake and Output 08/22/20 00:00 Intake Total 1110 ml Balance 1110 ml Intake Oral 1110 ml # Voids 5 # Urine Diapers 2 General: Alert, Oriented X3, Cooperative HEENT: Atraumatic, PERRLA Neck: Supple, No JVD, No Thyromegaly Lungs: Clear to Auscultation, Normal Air Movement Heart: Regular Rate, Normal S1, Normal S2, No Murmurs Abdomen: Normal Bowel Sounds, Soft, No Tenderness, No Hepatosplenomegaly, No Masses Extremities: No Clubbing, No Cyanosis, No Edema, Normal Pulses, No Tenderness/Swelling Neuro: Normal Speech, Cranial Nerves 3-12 NL Psych/Mental Status: Mental Status NL, Mood NL A/P-Cardiology Admission Diagnosis Wide-complex tachycardia PAF HTN Dizziness Assessment/Plan Status post wide-complex tachycardia, multiple episodes, frequent PVCs, symptomatic. most probably paroxysmal atrial fibrillation with aberrant conduction, maintained on amiodarone, Eliquis. Continue to monitor. 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 Feeling better at this time Hypertension, controlled, continue to monitor blood pressure Echocardiogram showed normal LV size and function, EF 60%, moderate mitral regurgitation, mild tricuspid regurgitation. Left atrial dilatation 5.1 cm. Generalized weakness, orthostatic dizziness and lightheadedness, unsteady gait, receiving physical and occupational therapy Urinary tract infection, improved, managed by primary care team Patient was seen and evaluated with Petra, examination performed, management plan was discussed, agree with the current scribed note, I made few changes to the note using Italic font Patient was seen and evaluated with Petra, has been doing better Still having fatigue Blood pressure is controlled Continue with physical therapy PETRA GOMEZ Aug 22, 2020 8:29 am TERESA HU MD Aug 22, 2020 4:41 pm
[2020-08-22] MEDS: IRON SUCROSE 200 MG/10 ML (VENOFER) VIAL IV SCH (08:32)
[2020-08-22] MEDS: SENNA W/DOCUSATE (SENOKOT S) TABLET PO SCH ×2 (08:33→20:55)
[2020-08-22] MEDS: AMIODARONE 200 MG (CORDARONE) TAB PO SCH ×2 (08:33→20:54)
[2020-08-22] MEDS: BUMETANIDE 1 MG (BUMEX) TAB PO SCH (08:33)
[2020-08-22] MEDS: APIXABAN 5 MG (ELIQUIS) TABLET PO SCH ×2 (08:33→20:57)
[2020-08-22] MEDS: polyethylene glycoL POWDER 17 GM (MIRALAX) PACK PO SCH ×2 (08:44→21:00)
[2020-08-22] MEDS: DOCUSATE SODIUM 100 MG (COLACE) CAP PO SCH ×2 (08:44→20:54)
--- NOTE | 2020-08-22 09:01 | PM&R Progress Note ---
Subjective HPI/CC On Admission Date Seen by Provider: Aug 22, 2020 Time Seen by Provider: 09:15 Subjective/Events-last exam 08/22/20: Pt doing a lot better Having a visitation today at five Transfers are okay with the wheelchair Bowels moved on the 08/20 IV iron infusions maintained Overall getting stronger 08/21/20: Pt doing pretty well Family training in order to bring him to the of his this week Overall doing pretty well 08/20/20: Pt doing pretty well Dr. Doe evaluated him today Hgb 8.7 Potassium 3.4 He fell last night in the bathroom and daughters were aware of that He may very well require a detention for 01/12 supervision 08/19/20: Patient doing well since last evening Tely reveals AF now Dr De Paz changed pyridium to prn Incontinence last night Ate bfast Venofer yesterday 08/18/20: Patient back and forth between his 's room upstairs since she is dying Slept well last night NSR on Tely Catheter DC Dr De Paz consulted Venofer will be given due to iron def 08/17/20: Patient became confused at midnight Xanax 0.25mg caused a bit of oversedation Patient converted to NSR on Tely HR 50's SLUMS 17 terminal upstairs 08/16/20: Patient doing well Hgb 8.9 Iron level pending Urinary frequency noted No retention noted Remeron started for insomnia Had confusion at 1800 so started antipsychotics and placed dc SLUMS 17 Without his to compensate for him, since she is admitted acute, it is clear how declined he really is Review of Systems General: Fatigue, Malaise Neurological: Weakness, Confusion Objective Exam Vital Signs Vital Signs Date Time Temp Pulse Resp B/P (MAP) Pulse Ox O2 Delivery O2 Flow Rate FiO2 08/23/20 01:00 64 08/22/20 20:00 94 Room Air 08/22/20 19:59 36.8 18 158/69 (98) Capillary Refill : General Appearance: No Apparent Distress, WD/WN, Chronically ill, Obese HEENT: PERRL/EOMI, Normal ENT Inspection, Pharynx Normal Neck: Full Range of Motion, Normal Inspection, Non Tender, Supple, Carotid Bruit Respiratory: Chest Non Tender, Lungs Clear, No Accessory Muscle Use, No Respiratory Distress, Decreased Breath Sounds Cardiovascular: Regular Rate, Rhythm, No Edema, No Gallop, No JVD, No Murmur, Normal Peripheral Pulses Gastrointestinal: Normal Bowel Sounds, No Organomegaly, No Pulsatile Mass, Non Tender, Soft Back: Normal Inspection, No CVA Tenderness, No Vertebral Tenderness Extremity: Normal Capillary Refill, Normal Inspection, Normal Range of Motion, Non Tender, No Calf Tenderness, No Pedal Edema Neurologic/Psychiatric: Alert, Oriented x3, Abnormal Gait, Depressed Affect, Motor Weakness (generalized) Skin: Normal Color, Warm/Dry Lymphatic: No Adenopathy Results/Procedures Lab Patient resulted labs reviewed. FIM Transfers Therapy Code Descriptions/Definitions Functional [place] Measure: 0=Not Assessed/NA 4=Minimal Assistance 1=Total Assistance 5=Supervision or Setup 2=Maximal Assistance 6=Modified [place] 3=Moderate Assistance 7=Complete IndependenceSCALE: Activities may be completed with or without assistive devices. 0-Umnkvrwagc-rvxyyci completes the activity by him/herself with no assistance from a helper. 5-Set-up or Clean-up Assistance-helper sets up or cleans up; patient completes activity. [place] assists only prior to or following the activity. 4-Supervision or Touching Assistance-helper provides verbal cues and/or touching/steadying and/or contact guard assistance as patient completes activity. Assistance may be provided throughout the activity or intermittently. 3-Partial/Moderate Assistance-helper does LESS THAN HALF the effort. [place] lifts, holds or supports trunk or limbs, but provides less than half the effort. 2-Substantial/Maximal Assistance-helper does MORE THAN HALF the effort. [place] lifts or holds trunk or limbs and provides more than half the effort. 3-Fpephrdbd-vbkguu does ALL the effort. Patient does none of the effort to complete the activity. Or, the assistance of 2 or more helpers is required for the patient to complete the activity. If activity was not attempted, code reason: 7-Patient Refused. 9-Not Applicable-not attempted and the patient did not perform the activity before the current illness, exacerbation or injury. 10-Not Attempted due to Environmental Limitations-(lack of equipment, weather restraints, etc.). 88-Not Attempted due to Medical Conditions or Safety Concerns. Roll Left to Right (QC): 6 Sit to Lying (QC): 5 Sit to Stand (QC): 4 Chair/Wtm-rn-Yhlry Xfer(QC): 4 Car Transfer (QC): 3 (Patient needs assistance with legs with getting in/out of vehicle.) Gait Training Does the Patient Walk?: Yes Distance: 100' x2 Walk 10 feet (QC): 4 Walk 50 ft with 2 Turns(QC): 4 Walk 150 ft (QC): 88 Walking 10ft/uneven surface-QC: 88 Gait Persons Needed: 1 Gait Assistive Device: FWW Wheelchair Training Does the Pt Use a Wheelchair?: Yes Distance: 50' Wheel 50 ft with 2 turns (QC): 3 Wheel 150 ft (QC): 88 Type of Wheelchair: Manual Stair Training Stair Training: Handrails/: 1 handrail, uses walker #of Steps: 1 1 Step (curb) (QC): 4 (CGA) 4 Steps (QC): 88 12 Steps (QC): 88 Balance Picking up an Object (QC): 88 ADL-Treatment Eating (QC): 6 Oral Hygiene (QC): 3 (Min assist sitting at sink to brush dentures, and place in mouth effectively.) Bathing Location: L Arm, R Arm, L Upper Leg, R Upper Leg, Chest, Abdomen, Perineal Area Shower/Bathe Self (QC): 3 (Mod assist overall in shower.) Upper Body Dressing (QC): 3 (Min assist) Lower Body Dressing (QC): 2 On/Off Footwear (QC): 2 Toileting Hygiene (QC): 3 (mod A (bottom care) and pt completes tanisha care in stance with CGA.) Toilet Transfer (QC): 3 (Min assist for toilet transfer to educate family.) Assessment/Plan Assessment and Plan Assess & Plan/Chief Complaint Assessment: Ventricular arrhythmia A fib new onset OAC new HTN Lupus Obesity Urinary retention since dc DC Pneumonitis CRI Dementia SLUMS 17 Sundowning Anemia iron def Plan: Monitor closely Cardiology appreciated Monitor creat Urinary retention management 08/16/20: Dc cath Monitor closely Anti-psychotics 08/17/20: Monitor closely Cardiology appreciated 08/18/20: Venofer iron infusion Support through 's dying process 08/19/20: Monitor incontinence AF on Tely 08/20/20: Monitor closely Venofer 08/21/20: Venofer Tely Monitor closely 08/22/20: Monitor BP and HR Fall risk (1) Ventricular arrhythmia (2) Pneumonitis (3) Knee pain, right (4) Atrial fibrillation (5) Falls frequently (6) Urinary retention (7) Lupus Status: Chronic (8) Hypertension Status: Acute (9) Leg edema Status: Acute (10) Renal insufficiency Status: Acute ELDA LUNA DO Aug 22, 2020 09:01
--- NOTE | 2020-08-22 10:40 | Speech Therapy Daily Note ---
Speech Daily Progress Note Subjective Date Seen by Provider: Aug 22, 2020 Time Seen by Provider: 00:30 Pt was alert and pleasant. Pt agreed to ST services. Objective Pt completed categorical naming tasks at 70% with minimal cues. Assessment Assessment Current Status: Fair Progress Treatment Plan Continue Plan of Care Speech Short Term Goals Short Term Goals Short Term Goals Pt will complete memory tasks related to daily needs at 80% or greater with minimal cues. Pt will complete safety awareness tasks related to daily needs at 80% or greater with minimal cues. Pt will complete problem solving tasks related to daily needs at 80% or greater with minimal cues. Speech Director Consumer Goals Usp Goals Pt will improve cognitive communication abilities so that he can complete daily tasks with minimal assist. Speech-Plan Patient/Family Goals Patient/Family Goals: Pt plans to return home where his children will be close by to assist in care and ADL's. Treatment Plan Speech Therapy Treatment Plan: Continue Plan of Care Treatment Duration: Aug 24, 2020 Frequency: 4 times per week (Patient will receive skilled ST 4-5x per week) Estimated Hrs Per Day: .5 hour per day Rehab Potential: Fair Barriers to Learning: Decreased cognitive function. Pt/Family Agrees to Plan: Yes Safety Risks/Education Teaching Recipient: Patient, Family Teaching Methods: Demonstration, Discussion Response to Teaching: Verbalize Understanding, Return Demonstration Education Topics Provided: Safety and cognitive communication strategies. Time Speech Therapy Time In: 09:15 Speech Therapy Time Out: 09:45 Total Billed Time: 30 Billed Treatment Time 1, SUSANA Mccann Aug 22, 2020 10:40
--- NOTE | 2020-08-22 11:45 | Occupational Ther Daily Note ---
OT Current Status-Daily Note Subjective No pain reported. Appearance Pt. up in chair. Daughter present. Pt. agrees to work with OT. Mental Status/Objective Patient Orientation: Person, Place ADL-Treatment Therapy Code Descriptions/Definitions Functional [place] Measure: 0=Not Assessed/NA 4=Minimal Assistance 1=Total Assistance 5=Supervision or Setup 2=Maximal Assistance 6=Modified [place] 3=Moderate Assistance 7=Complete IndependenceSCALE: Activities may be completed with or without assistive devices. 8-Uvkhvefeut-mlfvvtz completes the activity by him/herself with no assistance from a helper. 5-Set-up or Clean-up Assistance-helper sets up or cleans up; patient completes activity. [place] assists only prior to or following the activity. 4-Supervision or Touching Assistance-helper provides verbal cues and/or touching/steadying and/or contact guard assistance as patient completes activity. Assistance may be provided throughout the activity or intermittently. 3-Partial/Moderate Assistance-helper does LESS THAN HALF the effort. [place] lifts, holds or supports trunk or limbs, but provides less than half the effort. 2-Substantial/Maximal Assistance-helper does MORE THAN HALF the effort. [place] lifts or holds trunk or limbs and provides more than half the effort. 9-Tklzudvex-yttbpt does ALL the effort. Patient does none of the effort to complete the activity. Or, the assistance of 2 or more helpers is required for the patient to complete the activity. If activity was not attempted, code reason: 7-Patient Refused. 9-Not Applicable-not attempted and the patient did not perform the activity before the current illness, exacerbation or injury. 10-Not Attempted due to Environmental Limitations-(lack of equipment, weather restraints, etc.). 88-Not Attempted due to Medical Conditions or Safety Concerns. Eating (QC): 6 Oral Hygiene (QC): 3 (Min assist for dentures.) Shower/Bathe Self (QC): 3 (Mod assist overall.) Upper Body Dressing (QC): 3 (Min assist) Lower Body Dressing (QC): 2 On/Off Footwear: 2 Toileting Hygiene (QC): 2 Toilet Transfer (QC): 3 (Min assist) Other Treatment Pt. transferred to wheelchair from shower chair with min assist. He sat at sink in wheelchair to shave. Pt. able to shave most of face. OT went over the rest for pt. Pt. up in chair at end of session. Tolerated treatment well. Education OT Patient Education: Correct positioning, Modified ADL techniques, Progress toward Goal/Update tx plan, Purpose of tx/functional activities, Reviewed precautions, Rehab process, Transfer techniques Teaching Recipient: Patient Teaching Methods: Demonstration, Discussion Response to Teaching: Verbalize Understanding, Return Demonstration, Reinforcement Needed OT Short Term Goals Short Term Goals Time Frame: Aug 22, 2020 Eatin Oral hygiene: 4 Toileting hygiene: 3 Shower/bathe self: 3 Upper body dressin Lower body dressin Putting on/taking off footwear: 3 (With AE) OT Nursing Home Goals Moon[place] Goals Time Frame: Sep 05, 2020 Eating (QC): 6 Oral Hygiene (QC): 6 Toileting Hygiene (QC): 6 Shower/Bathe Self (QC): 4 Upper Body Dressing (QC): 6 Lower Body Dressing (QC): 4 On/Off Footwear (QC): 4 Additional Goals: 1-Demonstrate ADL Tasks, 2-Verbalize Understanding, 3- ImproveStrength/Sallie 1=Demonstrate adherence to instructed precautions during ADL tasks. 2=Patient will verbalize/demonstrate understanding of assistive devices/modifications for ADL. 3=Patient will improve strength/tolerance for activity to enable patient to perform ADL's. OT Education/Plan Problem List/Assessment Assessment: Decreased Activ Tolerance, Impaired Funct Balance, Impaired I ADL's, Impaired Self-Care Skills Discharge Recommendations Plan/Recommendations: Continue POC Therapy Discharge Recommendati: Home & Family, Post Acute OT Treatment Plan/Plan of Care Treatment,Training & Education: Yes Patient would benefit from OT for education, treatment and training to promote independence in ADL's, mobility, safety and/or upper extremity function for ADL's. Plan of Care: ADL Retraining, Functional Mobility, Group Exercise/Act as Ind, UE Funct Exercise/Act Treatment Duration: Sep 05, 2020 Frequency: At least 5 of 7 days/Wk (IRF) Estimated Hrs Per Day: 1.5 hours per day Agreement: Yes Rehab Potential: Fair Time/GCodes Start Time: 10:00 Stop Time: 11:00 Total Time Billed (hr/min): 60 Billed Treatment Time 1, ADL x 4 TASH PASCUAL OT Aug 22, 2020 11:45
--- NOTE | 2020-08-22 12:12 | Physical Therapy Daily Note ---
PT Daily Note-Current Subjective Reports his R knee wants to give out whenever he gets tired. Daughter asked if possible for pt to stay longer on ARU. Pt agrees to PT. Pain Location: Right Location Body Site: Knee Comment: Some minor knee pain but does not rate Mental Status Patient Orientation: Person, Place, Time, Situation Attachments: Other-See Comments (mask while out of room) Transfers SCALE: Activities may be completed with or without assistive devices. 6-Hymwunvntt-eewcdah completes the activity by him/herself with no assistance from a helper. 5-Set-up or Clean-up Assistance-helper sets up or cleans up; patient completes activity. [place] assists only prior to or following the activity. 4-Supervision or Touching Assistance-helper provides verbal cues and/or touching/steadying and/or contact guard assistance as patient completes activity. Assistance may be provided throughout the activity or intermittently. 3-Partial/Moderate Assistance-helper does LESS THAN HALF the effort. [place] lifts, holds or supports trunk or limbs, but provides less than half the effort. 2-Substantial/Maximal Assistance-helper does MORE THAN HALF the effort. [place] lifts or holds trunk or limbs and provides more than half the effort. 3-Bbuxugfzm-drykcm does ALL the effort. Patient does none of the effort to complete the activity. Or, the assistance of 2 or more helpers is required for the patient to complete the activity. If activity was not attempted, code reason: 7-Patient Refused. 9-Not Applicable-not attempted and the patient did not perform the activity before the current illness, exacerbation or injury. 10-Not Attempted due to Environmental Limitations-(lack of equipment, weather restraints, etc.). 88-Not Attempted due to Medical Conditions or Safety Concerns. Sit to Stand (QC): 3 Toilet Transfer (QC): 3 Weight Bearing Full Weight Bearing Full Weight Bearing Gait Training Does the Patient Walk?: Yes Distance: 75' Walk 10 feet (QC): 4 Walk 50 ft with 2 Turns(QC): 3 Gait Assistive Device: FWW Pt needs skilled verbal cues about staying within FWW while turning. Wheelchair Training Does the Pt Use a Wheelchair?: Yes Wheel 50 ft with 2 turns (QC): 4 Type of Wheelchair: Manual Exercises Seated Therapy Exercises: Ankle pumps, Sit to stand, Long arc quads, Hip flexion, Hamstring Curls, Hip abd/add Seated Reps: 12 NuStep Minutes: 12 NuStep Workload: 5 Treatments Pt in recliner upon arrival TF to WC. Wheels himself to therapy gym TF to nustep. Nustep for 12 min then peforms 2 sit <-> stands. Amb 75' back to room TF to recliner. Performs seated exs TF sit<->stand amb to BR. Toilet TF. Then amb back to recliner for lunch. Assessment Current Status: Good Progress Pt needs V/C about pushing off chair performing sit<->stand TF. Required Johnathan for toilet TF and sit<->stand transfers. Educated daughter and pt about written HEP. Written HEP for supine and seated exs. Pt in recliner call light near by, call light in hand and eating lunch. PT Short Term Goals Short Term Goals Time Frame: Aug 22, 2020 Roll Left & Right: 4 (SBA) Sit to lyin (SBA) Lying to sitting on side of be: 4 (SBA) Sit to stand: 4 (SBA) Chair/cxj-dp-wiqxr transfer: 4 (SBA) Toilet transfer: 4 (SBA) Car transfer: 4 (SBA) Walk 10 feet: 4 (CGA) Walk 50 feet with two turns: 4 (CGA) Walk 150 feet: 4 (CGA) Walking 10ft on uneven surface: 3 (min) 1 step (curb): 3 (min) Does pt use a wc or scooter: Yes Wheel 50ft w/2 turns: 4 (SBA) Wheel 150 feet: 4 (SBA) Type: Manual PT Nursing Home Goals Nursing Home Goals PT Nursing Home Goals Time Frame: Sep 05, 2020 Roll Left & Right (QC): 5 Sit to Lying (QC): 5 Lying-Sitting on Side/Bed(QC): 5 Sit to Stand (QC): 5 Chair/Cby-kw-Lumgw Xfer(QC): 5 Toilet Transfer (QC): 5 Car Transfer (QC): 5 Does the Patient Walk: Yes Walk 10 feet (QC): 5 Walk 50ft with 2 Turns (QC): 5 Walk 150 ft (QC): 5 Walking 10ft on Uneven Surface: 5 1 Step (curb) (QC): 5 4 Steps (QC): 5 12 Steps (QC): 9 Picking up an Object (QC): 5 Does the Pt use WC or Scooter?: No Wheel 50 feet with 2 turns (QC: 5 Type: Manual Wheel 150 feet: 5 Type: Manual PT Plan Problem List Problem List: Activity Tolerance, Functional Strength, Safety, Balance Treatment/Plan Treatment Plan: Continue Plan of Care Treatment Plan: Bed Mobility, Education, Functional Activity Sallie, Functional Strength, Group Therapy, Gait, Safety, Therapeutic Exercise, Transfers Treatment Duration: Sep 05, 2020 Frequency: At least 5 of 7 days/Wk (IRF) Estimated Hrs Per Day: 1.5 hours per day Patient and/or Family Agrees t: Yes Safety Risks/Education Patient Education: Gait Training, Transfer Techniques, Issued Written HEP, Correct Positioning, Safety Issues Teaching Recipient: Patient, Family Teaching Methods: Demonstration, Discussion Response to Teaching: Verbalize Understanding, Return Demonstration Time/GCodes Time In: 1100 Time Out: 1200 Total Billed Treatment Time: 60 Total Billed Treatment 1, FA (15m), GT (15m) & EX x2 (30m) GISELLE FLANAGAN PROCESS TECH Aug 22, 2020 12:12
[2020-08-22] MEDS: HYDROXYCHLOROQUINE 200 MG (PLAQUENIL) TAB PO SCH (12:34)
--- NOTE | 2020-08-22 14:25 | Physical Therapy Daily Note ---
PT Daily Note-Current Subjective Pt justed finished visiting w/ social work upon arrival, pt agrees to PT. Pain Location: No Pain Reported Mental Status Patient Orientation: Person, Place, Time, Situation Attachments: Other-See Comments (mask while out of room) Transfers SCALE: Activities may be completed with or without assistive devices. 2-Xwzjvaywqu-lecxawd completes the activity by him/herself with no assistance from a helper. 5-Set-up or Clean-up Assistance-helper sets up or cleans up; patient completes activity. [place] assists only prior to or following the activity. 4-Supervision or Touching Assistance-helper provides verbal cues and/or touching/steadying and/or contact guard assistance as patient completes activity. Assistance may be provided throughout the activity or intermittently. 3-Partial/Moderate Assistance-helper does LESS THAN HALF the effort. [place] lifts, holds or supports trunk or limbs, but provides less than half the effort. 2-Substantial/Maximal Assistance-helper does MORE THAN HALF the effort. [place] lifts or holds trunk or limbs and provides more than half the effort. 8-Qdxpouqce-jfeqxu does ALL the effort. Patient does none of the effort to complete the activity. Or, the assistance of 2 or more helpers is required for the patient to complete the activity. If activity was not attempted, code reason: 7-Patient Refused. 9-Not Applicable-not attempted and the patient did not perform the activity before the current illness, exacerbation or injury. 10-Not Attempted due to Environmental Limitations-(lack of equipment, weather restraints, etc.). 88-Not Attempted due to Medical Conditions or Safety Concerns. Sit to Stand (QC): 3 Weight Bearing Full Weight Bearing Full Weight Bearing Gait Training Does the Patient Walk?: Yes Distance: 225' Walk 10 feet (QC): 4 Walk 50 ft with 2 Turns(QC): 4 Walk 150 ft (QC): 3 Gait Assistive Device: FWW Treatments TF from recliner and amb in hallway left w/ OT at end of Rx. Assessment As pt fatigues pts SOBIA narrows. Pt needs V/C to stay within FWW and not release FWW before sitting. PT Short Term Goals Short Term Goals Time Frame: Aug 22, 2020 Roll Left & Right: 4 (SBA) Sit to lyin (SBA) Lying to sitting on side of be: 4 (SBA) Sit to stand: 4 (SBA) Chair/kjs-ux-qhped transfer: 4 (SBA) Toilet transfer: 4 (SBA) Car transfer: 4 (SBA) Walk 10 feet: 4 (CGA) Walk 50 feet with two turns: 4 (CGA) Walk 150 feet: 4 (CGA) Walking 10ft on uneven surface: 3 (min) 1 step (curb): 3 (min) Does pt use a wc or scooter: Yes Wheel 50ft w/2 turns: 4 (SBA) Wheel 150 feet: 4 (SBA) Type: Manual PT Halfway Goals Oncologist Goals PT Halfway Goals Time Frame: Sep 05, 2020 Roll Left & Right (QC): 5 Sit to Lying (QC): 5 Lying-Sitting on Side/Bed(QC): 5 Sit to Stand (QC): 5 Chair/Wym-fd-Uqlxb Xfer(QC): 5 Toilet Transfer (QC): 5 Car Transfer (QC): 5 Does the Patient Walk: Yes Walk 10 feet (QC): 5 Walk 50ft with 2 Turns (QC): 5 Walk 150 ft (QC): 5 Walking 10ft on Uneven Surface: 5 1 Step (curb) (QC): 5 4 Steps (QC): 5 12 Steps (QC): 9 Picking up an Object (QC): 5 Does the Pt use WC or Scooter?: No Wheel 50 feet with 2 turns (QC: 5 Type: Manual Wheel 150 feet: 5 Type: Manual PT Plan Problem List Problem List: Activity Tolerance, Safety, Gait Treatment/Plan Treatment Plan: Continue Plan of Care Treatment Plan: Bed Mobility, Education, Functional Activity Sallie, Functional Strength, Group Therapy, Gait, Safety, Therapeutic Exercise, Transfers Treatment Duration: Sep 05, 2020 Frequency: At least 5 of 7 days/Wk (IRF) Estimated Hrs Per Day: 1.5 hours per day Patient and/or Family Agrees t: Yes Safety Risks/Education Patient Education: Gait Training, Correct Positioning, Safety Issues Teaching Recipient: Patient Teaching Methods: Demonstration, Discussion Response to Teaching: Verbalize Understanding, Return Demonstration Time/GCodes Time In: 1400 Time Out: 1415 Total Billed Treatment Time: 15 Total Billed Treatment 1, GT GISELLE FLANAGAN FAX MACHINE REPAIRER Aug 22, 2020 14:25
--- NOTE | 2020-08-22 15:07 | Occupational Ther Daily Note ---
OT Current Status-Daily Note Subjective No pain reported. Appearance Pt. up ambulating with PT. Agrees to sit to rest, and then participate in OT session. Mental Status/Objective Patient Orientation: Person, Place ADL-Treatment Therapy Code Descriptions/Definitions Functional [place] Measure: 0=Not Assessed/NA 4=Minimal Assistance 1=Total Assistance 5=Supervision or Setup 2=Maximal Assistance 6=Modified [place] 3=Moderate Assistance 7=Complete IndependenceSCALE: Activities may be completed with or without assistive devices. 9-Wybwpgwixz-gcqqfoj completes the activity by him/herself with no assistance from a helper. 5-Set-up or Clean-up Assistance-helper sets up or cleans up; patient completes activity. [place] assists only prior to or following the activity. 4-Supervision or Touching Assistance-helper provides verbal cues and/or touching/steadying and/or contact guard assistance as patient completes activity. Assistance may be provided throughout the activity or intermittently. 3-Partial/Moderate Assistance-helper does LESS THAN HALF the effort. [place] lifts, holds or supports trunk or limbs, but provides less than half the effort. 2-Substantial/Maximal Assistance-helper does MORE THAN HALF the effort. [place] lifts or holds trunk or limbs and provides more than half the effort. 8-Ccesvhncs-npfisw does ALL the effort. Patient does none of the effort to complete the activity. Or, the assistance of 2 or more helpers is required for the patient to complete the activity. If activity was not attempted, code reason: 7-Patient Refused. 9-Not Applicable-not attempted and the patient did not perform the activity before the current illness, exacerbation or injury. 10-Not Attempted due to Environmental Limitations-(lack of equipment, weather restraints, etc.). 88-Not Attempted due to Medical Conditions or Safety Concerns. Toilet Transfer (QC): 3 (Min assist) Other Treatment Pt. issued red theraband for UE strengthening. Completed 3 bilateral UE exercises x 10 reps each, in all planes to increase overall strength. Pt. requires rest breaks in between each exercise. Pt. stood with min assist from chair, and ambulated into bathroom. Transferred to toilet with min assist. All needs met. Pt. to pull call light. Education OT Patient Education: Correct positioning, Exercise program, Modified ADL techniques, Progress toward Goal/Update tx plan, Purpose of tx/functional activities, Reviewed precautions, Rehab process, Transfer techniques Teaching Recipient: Patient Teaching Methods: Demonstration, Discussion Response to Teaching: Verbalize Understanding, Return Demonstration, Reinforcement Needed OT Short Term Goals Short Term Goals Time Frame: Aug 22, 2020 Eatin Oral hygiene: 4 Toileting hygiene: 3 Shower/bathe self: 3 Upper body dressin Lower body dressin Putting on/taking off footwear: 3 (With AE) OT Mcfp Goals Mcfp Goals Time Frame: Sep 05, 2020 Eating (QC): 6 Oral Hygiene (QC): 6 Toileting Hygiene (QC): 6 Shower/Bathe Self (QC): 4 Upper Body Dressing (QC): 6 Lower Body Dressing (QC): 4 On/Off Footwear (QC): 4 Additional Goals: 1-Demonstrate ADL Tasks, 2-Verbalize Understanding, 3- ImproveStrength/Sallie 1=Demonstrate adherence to instructed precautions during ADL tasks. 2=Patient will verbalize/demonstrate understanding of assistive devices/modifications for ADL. 3=Patient will improve strength/tolerance for activity to enable patient to perform ADL's. OT Education/Plan Problem List/Assessment Assessment: Decreased Activ Tolerance, Decreased UE Strength, Impaired Funct Balance, Impaired I ADL's, Impaired Self-Care Skills Discharge Recommendations Plan/Recommendations: Continue POC Therapy Discharge Recommendati: 24 Hour Supervision, Home & Family, Post Acute OT Treatment Plan/Plan of Care Treatment,Training & Education: Yes Patient would benefit from OT for education, treatment and training to promote independence in ADL's, mobility, safety and/or upper extremity function for ADL's. Plan of Care: ADL Retraining, Functional Mobility, Group Exercise/Act as Ind, UE Funct Exercise/Act Treatment Duration: Sep 05, 2020 Frequency: At least 5 of 7 days/Wk (IRF) Estimated Hrs Per Day: 1.5 hours per day Agreement: Yes Rehab Potential: Fair Time/GCodes Start Time: 14:15 Stop Time: 14:30 Total Time Billed (hr/min): 15 Billed Treatment Time 1, Ex TASH PASCUAL OT Aug 22, 2020 15:07
[2020-08-22] MEDS: IBUPROFEN TABLET 200 MG TAB PO PRN (16:50)
[2020-08-22 19:59] VITALS: BP 158/69
[2020-08-22] MEDS: MIRTAZAPINE 15 MG (REMERON) TAB PO SCH (20:55)
[2020-08-22] MEDS: TAMSULOSIN 0.4 MG (FLOMAX) CAP PO SCH (20:56)
[2020-08-22] MEDS: OLANZapine 2.5 MG (ZyPREXA) TAB PO SCH (20:56)
[2020-08-22] MEDS: LATANOPROST 0.005% (XALATAN) OPHTH SOLN 2.5 ML OU SCH (20:58)
[2020-08-23] MEDS: VENlafaxine XR 75 MG (EFFEXOR XR) CAP PO SCH (06:23)
[2020-08-23] MEDS: CATHETER FLUSH 10 ML SYR IV SCH ×3 (06:23→21:04)
[2020-08-23 08:00] VITALS: BP 134/90
--- NOTE | 2020-08-23 08:24 | Cardiology Progress Note ---
Subjective Date Seen by Provider: Aug 23, 2020 Time Seen by Provider: 08:23 Subjective/Events-last exam Patient is sitting up in chair, no new complaints. Denies any chest pain or palpitations. Objective-Cardiology Exam Last Set of Vital Signs Vital Signs 08/23/20 08:00 Temp 36.6 Pulse 84 Resp 20 B/P (MAP) 134/90 (105) Pulse Ox 94 O2 Delivery Room Air Capillary Refill : I&O Intake and Output 08/23/20 00:00 Intake Total 1000 ml Balance 1000 ml Intake Oral 1000 ml # Voids 11 # Bowel Movements 1 General: Alert, Oriented X3, Cooperative HEENT: Atraumatic, PERRLA Neck: Supple, No JVD, No Thyromegaly Lungs: Clear to Auscultation, Normal Air Movement Heart: Regular Rate, Normal S1, Normal S2, No Murmurs Abdomen: Normal Bowel Sounds, Soft, No Tenderness, No Hepatosplenomegaly, No Masses Extremities: No Clubbing, No Cyanosis, No Edema, Normal Pulses, No Tenderness/Swelling Neuro: Normal Speech, Cranial Nerves 3-12 NL Psych/Mental Status: Mental Status NL, Mood NL A/P-Cardiology Admission Diagnosis Wide-complex tachycardia PAF HTN Dizziness Assessment/Plan Status post wide-complex tachycardia, multiple episodes, frequent PVCs, symptomatic. most probably paroxysmal atrial fibrillation with aberrant conduction, maintained on amiodarone, Eliquis. Continue to monitor. 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 Feeling better at this time Hypertension, controlled, continue to monitor blood pressure Echocardiogram showed normal LV size and function, EF 60%, moderate mitral regurgitation, mild tricuspid regurgitation. Left atrial dilatation 5.1 cm. Generalized weakness, orthostatic dizziness and lightheadedness, unsteady gait, receiving physical and occupational therapy Urinary tract infection, improved, managed by primary care team Patient was seen and evaluated with Petra, examination performed, management plan was discussed, agree with the current scribed note, I made few changes to the note using Italic font Patient was seen and evaluated, feeling better today, going to his 's today Heart rate is controlled, continue to monitor Monitor blood pressure and lipids Continue with rehab PETRA GOMEZ Aug 23, 2020 08:23 TERESA HU MD Aug 23, 2020 09:07
[2020-08-23] MEDS: DOCUSATE SODIUM 100 MG (COLACE) CAP PO SCH ×2 (09:19→21:03)
[2020-08-23] MEDS: BUMETANIDE 1 MG (BUMEX) TAB PO SCH (09:19)
[2020-08-23] MEDS: AMIODARONE 200 MG (CORDARONE) TAB PO SCH ×2 (09:20→21:03)
[2020-08-23] MEDS: SENNA W/DOCUSATE (SENOKOT S) TABLET PO SCH ×2 (09:20→21:03)
[2020-08-23] MEDS: APIXABAN 5 MG (ELIQUIS) TABLET PO SCH ×2 (09:20→21:03)
--- NOTE | 2020-08-23 09:24 | Occupational Ther Daily Note ---
OT Current Status-Daily Note Subjective No pain reported. Appearance Pt. up in chair. Agreeable to therapy. Mental Status/Objective Patient Orientation: Person, Place, Time, Situation ADL-Treatment Therapy Code Descriptions/Definitions Functional [place] Measure: 0=Not Assessed/NA 4=Minimal Assistance 1=Total Assistance 5=Supervision or Setup 2=Maximal Assistance 6=Modified [place] 3=Moderate Assistance 7=Complete IndependenceSCALE: Activities may be completed with or without assistive devices. 2-Rellyxuyhc-vkulwqt completes the activity by him/herself with no assistance from a helper. 5-Set-up or Clean-up Assistance-helper sets up or cleans up; patient completes activity. [place] assists only prior to or following the activity. 4-Supervision or Touching Assistance-helper provides verbal cues and/or touching/steadying and/or contact guard assistance as patient completes activity. Assistance may be provided throughout the activity or intermittently. 3-Partial/Moderate Assistance-helper does LESS THAN HALF the effort. [place] lifts, holds or supports trunk or limbs, but provides less than half the effort. 2-Substantial/Maximal Assistance-helper does MORE THAN HALF the effort. [place] lifts or holds trunk or limbs and provides more than half the effort. 8-Hitovgpxt-dlhmnb does ALL the effort. Patient does none of the effort to complete the activity. Or, the assistance of 2 or more helpers is required for the patient to complete the activity. If activity was not attempted, code reason: 7-Patient Refused. 9-Not Applicable-not attempted and the patient did not perform the activity before the current illness, exacerbation or injury. 10-Not Attempted due to Environmental Limitations-(lack of equipment, weather restraints, etc.). 88-Not Attempted due to Medical Conditions or Safety Concerns. Eating (QC): 6 Oral Hygiene (QC): 4 (CGA in stance at sink to brush teeth.) Shower/Bathe Self (QC): 7 (Pt. showered yesterday, and so declines to shower today.) Upper Body Dressing (QC): 2 (Pt. requires max assist overall to don button up shirt. He has difficulty getting over his shoulders on his own, and then buttoning his buttons. Pt. max assist to don tie.) Lower Body Dressing (QC): 2 (Max assist overall to don pants. Pt. attempts to don them over feet, but is unable to clear foot in them. Requires max assist to don them over hips, and assist to fasten them.) On/Off Footwear: 2 (Pt. attempts first without sock aide to don socks, and then with sock aide. He is unable to do either without max assist.) Pt. is going to spouse's this date. He required co-treatment of PT/OT due to low endurance/overall strength. OT focused on ADL skills while PT facilitated multiple sit-stands with walker, ambulation into bathroom, and transfers from surface to surface. Pt. able to stand from lift chair and higher surfaces with min assist. Pt. dressed in chair, and then ambulated to bathroom to stand at sink and brush teeth and hair. Required CGA at sink. Ambulated back to lift chair in room. All needs are met for pt. Family to be to facility soon to take him to . Pt. will be gone from [address] for rest of day. Education OT Patient Education: Correct positioning, Modified ADL techniques, Progress toward Goal/Update tx plan, Purpose of tx/functional activities, Reviewed precautions, Rehab process, Transfer techniques, Use of adapted equipment Teaching Recipient: Patient Teaching Methods: Demonstration, Discussion Response to Teaching: Verbalize Understanding, Return Demonstration OT Short Term Goals Short Term Goals Time Frame: Aug 22, 2020 Eatin Oral hygiene: 4 Toileting hygiene: 3 Shower/bathe self: 3 Upper body dressin Lower body dressin Putting on/taking off footwear: 3 (With AE) OT Custodial Goals Custodial Goals Time Frame: Sep 05, 2020 Eating (QC): 6 Oral Hygiene (QC): 6 Toileting Hygiene (QC): 6 Shower/Bathe Self (QC): 4 Upper Body Dressing (QC): 6 Lower Body Dressing (QC): 4 On/Off Footwear (QC): 4 Additional Goals: 1-Demonstrate ADL Tasks, 2-Verbalize Understanding, 3- ImproveStrength/Sallie 1=Demonstrate adherence to instructed precautions during ADL tasks. 2=Patient will verbalize/demonstrate understanding of assistive devices/modifications for ADL. 3=Patient will improve strength/tolerance for activity to enable patient to perform ADL's. OT Education/Plan Problem List/Assessment Assessment: Decreased Activ Tolerance, Impaired Funct Balance, Impaired I AD L's, Impaired Self-Care Skills Discharge Recommendations Plan/Recommendations: Continue POC Treatment Plan/Plan of Care Patient would benefit from OT for education, treatment and training to promote i ndependence in ADL's, mobility, safety and/or upper extremity function for ADL's. Plan of Care: ADL Retraining, Functional Mobility, Group Exercise/Act as Ind, UE Funct Exercise/Act Treatment Duration: Sep 05, 2020 Frequency: At least 5 of 7 days/Wk (IRF) Estimated Hrs Per Day: 1.5 hours per day Agreement: Yes Rehab Potential: Fair Time/GCodes Start Time: 08:10 Stop Time: 09:10 Total Time Billed (hr/min): 60 Billed Treatment Time 1, ADL x 4 Co-treatment with PT from [id number]. Please see above note for designated roles. TASH PASCUAL OT Aug 23, 2020 09:24
--- NOTE | 2020-08-23 09:24 | Physical Therapy Daily Note ---
PT Daily Note-Current Subjective Pt agrees to PT-OT co-treat in room pt. is going to spouse's this date. Pain Location: No Pain Reported Mental Status Patient Orientation: Person, Place, Time, Situation Transfers SCALE: Activities may be completed with or without assistive devices. 1-Jguhykjhsb-bazvlnq completes the activity by him/herself with no assistance from a helper. 5-Set-up or Clean-up Assistance-helper sets up or cleans up; patient completes activity. Muse assists only prior to or following the activity. 4-Supervision or Touching Assistance-helper provides verbal cues and/or touching/steadying and/or contact guard assistance as patient completes activity. Assistance may be provided throughout the activity or intermittently. 3-Partial/Moderate Assistance-helper does LESS THAN HALF the effort. Muse lifts, holds or supports trunk or limbs, but provides less than half the effort. 2-Substantial/Maximal Assistance-helper does MORE THAN HALF the effort. Muse l ifts or holds trunk or limbs and provides more than half the effort. 8-Bgzukylek-plyksx does ALL the effort. Patient does none of the effort to complete the activity. Or, the assistance of 2 or more helpers is required for the patient to complete the activity. If activity was not attempted, code reason: 7-Patient Refused. 9-Not Applicable-not attempted and the patient did not perform the activity before the current illness, exacerbation or injury. 10-Not Attempted due to Environmental Limitations-(lack of equipment, weather restraints, etc.). 88-Not Attempted due to Medical Conditions or Safety Concerns. Sit to Stand (QC): 4 Weight Bearing Full Weight Bearing Full Weight Bearing Gait Training Does the Patient Walk?: Yes Distance: 20' Walk 10 feet (QC): 4 Gait Assistive Device: FWW Exercises Seated Therapy Exercises: Sit to stand Seated Reps: 4 Treatments Pt is finishing breakfast upon arrival and once pt finishes breakfast pt dressed in chair, and then amb to BR to stand at sink and brush teeth and hair. Pt. able to stand from lift chair and higher surfaces with min assist. Required CGA at sink. Ambulated back to lift chair in room. Assessment Current Status: Good Progress Pt requires Johnathan to help w/ sit-stand TF. Pt needed skilled verbal cues to remind him push off chair while standing and to reach back for chair when sitting back down. Pt was able to amb from recliner to BR and then stand at sink to brush teeth. Pt knees buckled slightly and INSURANCE POLICY ISSUE CLERK helped pt correct himself. He required co-treatment of PT/OT due to low endurance/overall strength. OT focused on ADL skills while PT facilitated multiple sit-stands with walker, ambulation into bathroom, and transfers from surface to surface. All needs are met for pt. Family to be to facility soon to take him to . Pt. will be gone from [facility] for rest of day PT Short Term Goals Short Term Goals Time Frame: Aug 22, 2020 Roll Left & Right: 4 (SBA) Sit to lyin (SBA) Lying to sitting on side of be: 4 (SBA) Sit to stand: 4 (SBA) Chair/nej-id-vdfxq transfer: 4 (SBA) Toilet transfer: 4 (SBA) Car transfer: 4 (SBA) Walk 10 feet: 4 (CGA) Walk 50 feet with two turns: 4 (CGA) Walk 150 feet: 4 (CGA) Walking 10ft on uneven surface: 3 (min) 1 step (curb): 3 (min) Does pt use a wc or scooter: Yes Wheel 50ft w/2 turns: 4 (SBA) Wheel 150 feet: 4 (SBA) Type: Manual PT Alf Goals Alf Goals PT Alf Goals Time Frame: Sep 05, 2020 Roll Left & Right (QC): 5 Sit to Lying (QC): 5 Lying-Sitting on Side/Bed(QC): 5 Sit to Stand (QC): 5 Chair/Vby-lt-Nitiu Xfer(QC): 5 Toilet Transfer (QC): 5 Car Transfer (QC): 5 Does the Patient Walk: Yes Walk 10 feet (QC): 5 Walk 50ft with 2 Turns (QC): 5 Walk 150 ft (QC): 5 Walking 10ft on Uneven Surface: 5 1 Step (curb) (QC): 5 4 Steps (QC): 5 12 Steps (QC): 9 Picking up an Object (QC): 5 Does the Pt use WC or Scooter?: No Wheel 50 feet with 2 turns (QC: 5 Type: Manual Wheel 150 feet: 5 Type: Manual PT Plan Problem List Problem List: Activity Tolerance, Balance, Transfer Treatment/Plan Treatment Plan: Continue Plan of Care Treatment Plan: Bed Mobility, Education, Functional Activity Sallie, Functional Strength, Group Therapy, Gait, Safety, Therapeutic Exercise, Transfers Treatment Duration: Sep 05, 2020 Frequency: At least 5 of 7 days/Wk (IRF) Estimated Hrs Per Day: 1.5 hours per day Patient and/or Family Agrees t: Yes Safety Risks/Education Patient Education: Transfer Techniques, Correct Positioning, Safety Issues Teaching Recipient: Patient Teaching Methods: Demonstration, Discussion Response to Teaching: Verbalize Understanding, Return Demonstration Time/GCodes Time In: 815 Time Out: 915 Total Billed Treatment Time: 60 Total Billed Treatment 1, FA x 3 (50m), GT (10m) GISELLE FLANAGAN INSURANCE POLICY ISSUE CLERK Aug 23, 2020 09:24
[2020-08-23] MEDS: polyethylene glycoL POWDER 17 GM (MIRALAX) PACK PO SCH ×2 (09:25→21:07)
--- NOTE | 2020-08-23 10:07 | Speech Therapy Daily Note ---
Speech Daily Progress Note Subjective Date Seen by Provider: Aug 23, 2020 Time Seen by Provider: 00:30 Pt was alert and pleasant, sitting in his recliner. Patient agreed to ST services. Pt recalled fond memories of his late and was looking forward to being with family at her today. Objective Pt completed safety awareness tasks related to daily needs at 90% with no cues. Assessment Assessment Current Status: Good Progress Treatment Plan Continue Plan of Care Speech Short Term Goals Short Term Goals Short Term Goals Pt will complete memory tasks related to daily needs at 80% or greater with minimal cues. Pt will complete safety awareness tasks related to daily needs at 80% or greater with minimal cues. Pt will complete problem solving tasks related to daily needs at 80% or greater with minimal cues. Speech Chcf Goals Chcf Goals Pt will improve cognitive communication abilities so that he can complete daily tasks with minimal assist. Speech-Plan Patient/Family Goals Patient/Family Goals: Pt plans to return home where he will recieve family care and home health services. Treatment Plan Speech Therapy Treatment Plan: Continue Plan of Care Treatment Duration: Aug 28, 2020 Frequency: 4 times per week (Patient will receive skilled ST 4-5x per week) Estimated Hrs Per Day: .5 hour per day Rehab Potential: Fair Barriers to Learning: Decreased cognition due to age Pt/Family Agrees to Plan: Yes Safety Risks/Education Teaching Recipient: Patient Teaching Methods: Demonstration, Discussion Response to Teaching: Verbalize Understanding, Return Demonstration Education Topics Provided: Safety and communication Time Speech Therapy Time In: 09:30 Speech Therapy Time Out: 10:00 Total Billed Time: 30 Billed Treatment Time 1, SUSANA Mccann Aug 23, 2020 10:07
[2020-08-23] MEDS: IBUPROFEN TABLET 200 MG TAB PO PRN (10:13)
--- NOTE | 2020-08-23 12:08 | PM&R Progress Note ---
Subjective HPI/CC On Admission Date Seen by Provider: Aug 23, 2020 Time Seen by Provider: 10:30 Subjective/Events-last exam 08/23/20: Went to a of his Doing well Ambulating well with one person Bowels moved yesterday 08/22/20: Pt doing a lot better Having a visitation today at five Transfers are okay with the wheelchair Bowels moved on the 08/20 IV iron infusions maintained Overall getting stronger 08/21/20: Pt doing pretty well Family training in order to bring him to the of his this week Overall doing pretty well 08/20/20: Pt doing pretty well Dr. Doe evaluated him today Hgb 8.7 Potassium 3.4 He fell last night in the bathroom and daughters were aware of that He may very well require a penitentiary for 01/12 supervision 08/19/20: Patient doing well since last evening Tely reveals AF now Dr De Paz changed pyridium to prn Incontinence last night Ate bfast Venofer yesterday 08/18/20: Patient back and forth between his 's room upstairs since she is dying Slept well last night NSR on Tely Catheter DC Dr De Paz consulted Venofer will be given due to iron def 08/17/20: Patient became confused at midnight Xanax 0.25mg caused a bit of oversedation Patient converted to NSR on Tely HR 50's SLUMS 17 terminal upstairs 08/16/20: Patient doing well Hgb 8.9 Iron level pending Urinary frequency noted No retention noted Remeron started for insomnia Had confusion at 1800 so started antipsychotics and placed dc SLUMS 17 Without his to compensate for him, since she is admitted acute, it is clear how declined he really is Review of Systems General: Fatigue, Malaise Neurological: Weakness Objective Exam Vital Signs Vital Signs Date Time Temp Pulse Resp B/P (MAP) Pulse Ox O2 Delivery O2 Flow Rate FiO2 08/23/20 20:00 36.2 68 20 143/64 (90) 94 Room Air Capillary Refill : General Appearance: No Apparent Distress, WD/WN, Chronically ill, Obese HEENT: PERRL/EOMI, Normal ENT Inspection, Pharynx Normal Neck: Full Range of Motion, Normal Inspection, Non Tender, Supple, Carotid Bruit Respiratory: Chest Non Tender, Lungs Clear, No Accessory Muscle Use, No Respira tory Distress, Decreased Breath Sounds Cardiovascular: Regular Rate, Rhythm, No Edema, No Gallop, No JVD, No Murmur, Normal Peripheral Pulses Gastrointestinal: Normal Bowel Sounds, No Organomegaly, No Pulsatile Mass, Non Tender, Soft Back: Normal Inspection, No CVA Tenderness, No Vertebral Tenderness Extremity: Normal Capillary Refill, Normal Inspection, Normal Range of Motion, Non Tender, No Calf Tenderness, No Pedal Edema Neurologic/Psychiatric: Alert, Oriented x3, Abnormal Gait, Depressed Affect, Motor Weakness (generalized) Skin: Normal Color, Warm/Dry Lymphatic: No Adenopathy Results/Procedures Lab Patient resulted labs reviewed. FIM Transfers Therapy Code Descriptions/Definitions Functional Coy Measure: 0=Not Assessed/NA 4=Minimal Assistance 1=Total Assistance 5=Supervision or Setup 2=Maximal Assistance 6=Modified Coy 3=Moderate Assistance 7=Complete IndependenceSCALE: Activities may be completed with or without assistive devices. 4-Scpixvmfrg-wclubff completes the activity by him/herself with no assistance from a helper. 5-Set-up or Clean-up Assistance-helper sets up or cleans up; patient completes activity. [place] assists only prior to or following the activity. 4-Supervision or Touching Assistance-helper provides verbal cues and/or touching/steadying and/or contact guard assistance as patient completes activity. Assistance may be provided throughout the activity or intermittently. 3-Partial/Moderate Assistance-helper does LESS THAN HALF the effort. [place] lifts, holds or supports trunk or limbs, but provides less than half the effort. 2-Substantial/Maximal Assistance-helper does MORE THAN HALF the effort. [place] lifts or holds trunk or limbs and provides more than half the effort. 8-Okjlygkir-nydnbt does ALL the effort. Patient does none of the effort to complete the activity. Or, the assistance of 2 or more helpers is required for the patient to complete the activity. If activity was not attempted, code reason: 7-Patient Refused. 9-Not Applicable-not attempted and the patient did not perform the activity before the current illness, exacerbation or injury. 10-Not Attempted due to Environmental Limitations-(lack of equipment, weather restraints, etc.). 88-Not Attempted due to Medical Conditions or Safety Concerns. Roll Left to Right (QC): 6 Sit to Lying (QC): 5 Sit to Stand (QC): 3 Chair/Qkz-jj-Qkjdu Xfer(QC): 4 Car Transfer (QC): 3 (Patient needs assistance with legs with getting in/out of vehicle.) Gait Training Does the Patient Walk?: Yes Distance: 20' Walk 10 feet (QC): 4 Walk 50 ft with 2 Turns(QC): 4 Walk 150 ft (QC): 3 Walking 10ft/uneven surface-QC: 88 Gait Persons Needed: 1 Gait Assistive Device: FWW Wheelchair Training Does the Pt Use a Wheelchair?: Yes Distance: 50' Wheel 50 ft with 2 turns (QC): 4 Wheel 150 ft (QC): 88 Type of Wheelchair: Manual Stair Training Stair Training: Handrails/: 1 handrail, uses walker #of Steps: 1 1 Step (curb) (QC): 4 (CGA) 4 Steps (QC): 88 12 Steps (QC): 88 Balance Picking up an Object (QC): 88 ADL-Treatment Eating (QC): 6 Oral Hygiene (QC): 4 (CGA in stance at sink to brush teeth.) Bathing Location: L Arm, R Arm, L Upper Leg, R Upper Leg, Chest, Abdomen, Perineal Area Shower/Bathe Self (QC): 7 (Pt. showered yesterday, and so declines to shower today.) Upper Body Dressing (QC): 2 (Pt. requires max assist overall to don button up shirt. He has difficulty getting over his shoulders on his own, and then buttoning his buttons. Pt. max assist to don tie.) Lower Body Dressing (QC): 2 (Max assist overall to don pants. Pt. attempts to don them over feet, but is unable to clear foot in them. Requires max assist to don them over hips, and assist to fasten them.) On/Off Footwear (QC): 2 (Pt. attempts first without sock aide to don socks, and then with sock aide. He is unable to do either without max assist.) Toileting Hygiene (QC): 2 Toilet Transfer (QC): 3 (Min assist) Assessment/Plan Assessment and Plan Assess & Plan/Chief Complaint Assessment: Ventricular arrhythmia A fib new onset OAC new HTN Lupus Obesity Urinary retention since dc DC Pneumonitis CRI Dementia SLUMS 17 Sundowning Anemia iron def Plan: Monitor closely Cardiology appreciated Monitor creat Urinary retention management 08/16/20: Dc cath Monitor closely Anti-psychotics 08/17/20: Monitor closely Cardiology appreciated 08/18/20: Venofer iron infusion Support through 's dying process 08/19/20: Monitor incontinence AF on Tely 08/20/20: Monitor closely Venofer 08/21/20: Venofer Tely Monitor closely 08/22/20: Monitor BP and HR Fall risk 08/23/20: Monitor BP Telemetry (1) Ventricular arrhythmia (2) Pneumonitis (3) Knee pain, right (4) Atrial fibrillation (5) Falls frequently (6) Urinary retention (7) Lupus Status: Chronic (8) Hypertension Status: Acute (9) Leg edema Status: Acute (10) Renal insufficiency Status: Acute ELDA LUNA DO Aug 23, 2020 12:08
[2020-08-23 15:05] VITALS: BP 140/64
[2020-08-23] MEDS: HYDROXYCHLOROQUINE 200 MG (PLAQUENIL) TAB PO SCH (15:38)
[2020-08-23] MEDS: TAMSULOSIN 0.4 MG (FLOMAX) CAP PO SCH (18:42)
[2020-08-23 20:00] VITALS: BP 143/64
[2020-08-23] MEDS: OLANZapine 2.5 MG (ZyPREXA) TAB PO SCH (21:03)
[2020-08-23] MEDS: MIRTAZAPINE 15 MG (REMERON) TAB PO SCH (21:04)
[2020-08-23] MEDS: LATANOPROST 0.005% (XALATAN) OPHTH SOLN 2.5 ML OU SCH (21:05)
[2020-08-24] MEDS: CATHETER FLUSH 10 ML SYR IV SCH ×3 (06:20→21:40)
[2020-08-24] MEDS: VENlafaxine XR 75 MG (EFFEXOR XR) CAP PO SCH (06:20)
[2020-08-24 08:00] VITALS: BP 118/66
[2020-08-24] MEDS: AMIODARONE 200 MG (CORDARONE) TAB PO SCH ×2 (09:29→21:39)
[2020-08-24] MEDS: BUMETANIDE 1 MG (BUMEX) TAB PO SCH (09:29)
[2020-08-24] MEDS: DOCUSATE SODIUM 100 MG (COLACE) CAP PO SCH ×2 (09:29→21:50)
[2020-08-24] MEDS: SENNA W/DOCUSATE (SENOKOT S) TABLET PO SCH ×2 (09:29→21:50)
[2020-08-24] MEDS: APIXABAN 5 MG (ELIQUIS) TABLET PO SCH ×2 (09:29→21:39)
[2020-08-24] MEDS: IRON SUCROSE 200 MG/10 ML (VENOFER) VIAL IV SCH (09:31)
[2020-08-24] MEDS: polyethylene glycoL POWDER 17 GM (MIRALAX) PACK PO SCH ×2 (09:31→20:04)
--- NOTE | 2020-08-24 10:32 | Physical Therapy Daily Note ---
PT Daily Note-Current Subjective Pt. up in recliner agrees to Rx. Pt. speaks of his he recently lost and is reminiscing today very mournful. Pt. states his back hurts aileen when he tries to lay flat or stand straight. Pain Numeric Pain Scale: 5-Moderate Pain Location: Medial Location Body Site: Back Pain Description: Ache Mental Status Patient Orientation: Normal For Age Attachments: Other-See Comments (mask) Transfers SCALE: Activities may be completed with or without assistive devices. 0-Xlikvsmrau-wkcvaej completes the activity by him/herself with no assistance from a helper. 5-Set-up or Clean-up Assistance-helper sets up or cleans up; patient completes activity. [place] assists only prior to or following the activity. 4-Supervision or Touching Assistance-helper provides verbal cues and/or touching/steadying and/or contact guard assistance as patient completes activity. Assistance may be provided throughout the activity or intermittently. 3-Partial/Moderate Assistance-helper does LESS THAN HALF the effort. [place] lifts, holds or supports trunk or limbs, but provides less than half the effort. 2-Substantial/Maximal Assistance-helper does MORE THAN HALF the effort. [place] lifts or holds trunk or limbs and provides more than half the effort. 0-Tncwjixsa-lmhxlo does ALL the effort. Patient does none of the effort to complete the activity. Or, the assistance of 2 or more helpers is required for the patient to complete the activity. If activity was not attempted, code reason: 7-Patient Refused. 9-Not Applicable-not attempted and the patient did not perform the activity before the current illness, exacerbation or injury. 10-Not Attempted due to Environmental Limitations-(lack of equipment, weather restraints, etc.). 88-Not Attempted due to Medical Conditions or Safety Concerns. Roll Left & Right (QC): 4 Sit to Lying (QC): 5 Lying to Sitting/Side of Bed(Q: 5 Sit to Stand (QC): 5 Chair/Sce-jh-Lqokt Xfer(QC): 5 Toilet Transfer (QC): 5 Weight Bearing Full Weight Bearing Full Weight Bearing Gait Training Does the Patient Walk?: Yes Walk 10 feet (QC): 4 Walk 50 ft with 2 Turns(QC): 4 Walk 150 ft (QC): 4 Gait Persons Needed: 1 Gait Assistive Device: FWW pt. with position far from FWW and leans heavily on FWW and occas kicks it with his foot, pt. cued to stay up in FWW in safer position, he is able to but not comfortably at first. Exercises Supine Ex: Bridging, Ankle pumps, Quad Set, Rolling, Heel Slides, Short Arc Quads, Straight leg raise, Hip abd/add Supine Reps: 12 Seated Therapy Exercises: Ankle pumps, Sit to stand, Long arc quads, Hip flexion, Hip abd/add Seated Reps: 12 Standing: Hip Abduction, Heel/toe raises, Marching Standing Reps: 15 NuStep Minutes: 10 NuStep Workload: 3 Assessment Current Status: Good Progress pt. has had frequent falls but resists w/c training . Gait requires some assist and pt. states he wants to return to his home but is not sure of the plan just yet. PT Short Term Goals Short Term Goals Time Frame: Aug 22, 2020 Roll Left & Right: 4 (SBA) Sit to lyin (SBA) Lying to sitting on side of be: 4 (SBA) Sit to stand: 4 (SBA) Chair/wat-tk-vhkfn transfer: 4 (SBA) Toilet transfer: 4 (SBA) Car transfer: 4 (SBA) Walk 10 feet: 4 (CGA) Walk 50 feet with two turns: 4 (CGA) Walk 150 feet: 4 (CGA) Walking 10ft on uneven surface: 3 (min) 1 step (curb): 3 (min) Does pt use a wc or scooter: Yes Wheel 50ft w/2 turns: 4 (SBA) Wheel 150 feet: 4 (SBA) Type: Manual PT Dinkey Locomotive Operator Goals Dinkey Locomotive Operator Goals PT Usp Goals Time Frame: Sep 05, 2020 Roll Left & Right (QC): 5 Sit to Lying (QC): 5 Lying-Sitting on Side/Bed(QC): 5 Sit to Stand (QC): 5 Chair/Ldv-rp-Igfre Xfer(QC): 5 Toilet Transfer (QC): 5 Car Transfer (QC): 5 Does the Patient Walk: Yes Walk 10 feet (QC): 5 Walk 50ft with 2 Turns (QC): 5 Walk 150 ft (QC): 5 Walking 10ft on Uneven Surface: 5 1 Step (curb) (QC): 5 4 Steps (QC): 5 12 Steps (QC): 9 Picking up an Object (QC): 5 Does the Pt use WC or Scooter?: No Wheel 50 feet with 2 turns (QC: 5 Type: Manual Wheel 150 feet: 5 Type: Manual PT Plan Treatment/Plan Treatment Plan: Continue Plan of Care Treatment Plan: Bed Mobility, Education, Functional Activity Sallie, Functional Strength, Group Therapy, Gait, Safety, Therapeutic Exercise, Transfers Treatment Duration: Sep 05, 2020 Frequency: At least 5 of 7 days/Wk (IRF) Estimated Hrs Per Day: 1.5 hours per day Patient and/or Family Agrees t: Yes Safety Risks/Education Patient Education: Gait Training, Transfer Techniques, Correct Positioning, Disease Process, Safety Issues Teaching Recipient: Patient Teaching Methods: Demonstration, Discussion Response to Teaching: Verbalize Understanding, Return Demonstration, Reinforcement Needed Time/GCodes Time In: 915 Time Out: 1030 Total Billed Treatment Time: 75 Total Billed Treatment 1,EX30m,GT25m,FA20m WALTER PEREZ PTA Aug 24, 2020 10:32
--- NOTE | 2020-08-24 10:42 | Occupational Ther Daily Note ---
OT Current Status-Daily Note Subjective Pt AxO, denies pain, agrees to tx. Pt speaks about family intermittently through session. Pt agrees to showering. Mental Status/Objective Patient Orientation: Person, Place, Situation Attachments: Telemetry ADL-Treatment Therapy Code Descriptions/Definitions Functional [place] Measure: 0=Not Assessed/NA 4=Minimal Assistance 1=Total Assistance 5=Supervision or Setup 2=Maximal Assistance 6=Modified [place] 3=Moderate Assistance 7=Complete IndependenceSCALE: Activities may be completed with or without assistive devices. 6-Xiaubzjxew-yzulpsu completes the activity by him/herself with no assistance from a helper. 5-Set-up or Clean-up Assistance-helper sets up or cleans up; patient completes activity. [place] assists only prior to or following the activity. 4-Supervision or Touching Assistance-helper provides verbal cues and/or touching/steadying and/or contact guard assistance as patient completes activity. Assistance may be provided throughout the activity or intermittently. 3-Partial/Moderate Assistance-helper does LESS THAN HALF the effort. [place] lifts, holds or supports trunk or limbs, but provides less than half the effort. 2-Substantial/Maximal Assistance-helper does MORE THAN HALF the effort. [place] lifts or holds trunk or limbs and provides more than half the effort. 2-Cgafhftxu-fhzopk does ALL the effort. Patient does none of the effort to complete the activity. Or, the assistance of 2 or more helpers is required for the patient to complete the activity. If activity was not attempted, code reason: 7-Patient Refused. 9-Not Applicable-not attempted and the patient did not perform the activity before the current illness, exacerbation or injury. 10-Not Attempted due to Environmental Limitations-(lack of equipment, weather restraints, etc.). 88-Not Attempted due to Medical Conditions or Safety Concerns. Eating (QC): 6 Oral Hygiene (QC): 7 Bathing Location: L Arm, R Arm, L Upper Leg, R Upper Leg, Chest, Abdomen, Perineal Area Shower/Bathe Self (QC): 3 (min A (bottom care only) pt denies washing feet.) Upper Body Dressing (QC): 3 (mod A adjusting garment in front/ back, decreased shoulder flexion/ strength.) Lower Body Dressing (QC): 3 (mid A- pt able to thread undergarments with min A, requires min A for adjustment on toes of the pants as well. pt able to stand and complete hike with CGA. ) On/Off Footwear: 3 (pt able to place foot in shoe, however, requires assist for heel adjustment) Toileting Hygiene (QC): 2 (max A bottom care in shower) Toilet Transfer (QC): 4 (CGA) Other Treatment Pt completes electric razor in chair; pt ambulates from recliner to w/c with CGA. Pt doffs clothing on sc, completes showering and dressing on sc/ on toilet as outlined. Post tx, pt ambulates to w/c and pushes self to gym with increased time. Completion of UE reaching/ crossing midline task at heightened surface while in sit. Pt requires increased time for this task and demonstrates decreased ROM LUE<RUE. Pt requires rest break post LUE activity. Pt completes 4 rounds of 12" arm arc task with rest breaks between, pushes self back to room with UE/ LE use. During RBs, pt and OT discuss pt's d/c situation- pt plans to d/c to apartment (~20 feet from daughter's "back door"), with grandlew. 2 bedroom, believes walk in shower. Grandson and daughter work timers inspector during the day, pt must be able to complete BADLs prior to d/c. Sit to stand min A and ambulates CGA to recliner. States need for toilet. CGA from raised chair and CGA to toilet. Pt left on toilet with PT to enter immediately post OT. PT is educated on pt's position. Education OT Patient Education: Correct positioning, Exercise program, Home exercise program, Modified ADL techniques, Purpose of tx/functional activities, Safety issues, Transfer techniques Teaching Recipient: Patient Teaching Methods: Demonstration, Discussion Response to Teaching: Verbalize Understanding, Return Demonstration OT Short Term Goals Short Term Goals Time Frame: Aug 22, 2020 Eatin Oral hygiene: 4 Toileting hygiene: 3 Shower/bathe self: 3 Upper body dressin Lower body dressin Putting on/taking off footwear: 3 (With AE) OT Skilled Nursing Goals Skilled Nursing Goals Time Frame: Sep 05, 2020 Eating (QC): 6 Oral Hygiene (QC): 6 Toileting Hygiene (QC): 6 Shower/Bathe Self (QC): 4 Upper Body Dressing (QC): 6 Lower Body Dressing (QC): 4 On/Off Footwear (QC): 4 Additional Goals: 1-Demonstrate ADL Tasks, 2-Verbalize Understanding, 3- ImproveStrength/Sallie 1=Demonstrate adherence to instructed precautions during ADL tasks. 2=Patient will verbalize/demonstrate understanding of assistive devices/modifications for ADL. 3=Patient will improve strength/tolerance for activity to enable patient to perform ADL's. OT Education/Plan Problem List/Assessment Assessment: Decreased Activ Tolerance, Decreased UE Strength, Dependent Transfers, Impaired Funct Balance, Impaired I ADL's, Impaired Self-Care Skills, Restricted Funct UE ROM Discharge Recommendations Plan/Recommendations: Continue POC Therapy Discharge Recommendati: Scheduled Assistance, Home & Family, Post Acute OT Treatment Plan/Plan of Care Treatment,Training & Education: Yes Patient would benefit from OT for education, treatment and training to promote independence in ADL's, mobility, safety and/or upper extremity function for ADL's. Plan of Care: ADL Retraining, Functional Mobility, Group Exercise/Act as Ind, UE Funct Exercise/Act Treatment Duration: Sep 05, 2020 Frequency: At least 5 of 7 days/Wk (IRF) Estimated Hrs Per Day: 1.5 hours per day Agreement: Yes Rehab Potential: Fair Time/GCodes Start Time: 08:00 Stop Time: 09:15 Total Time Billed (hr/min): 75 Billed Treatment Time 1, ADL 3 (45), EX 2 (30)= 75 DION SORIANO OTR Aug 24, 2020 10:42
--- NOTE | 2020-08-24 10:44 | PM&R Progress Note ---
Subjective HPI/CC On Admission Date Seen by Provider: Aug 24, 2020 Time Seen by Provider: 10:45 Subjective/Events-last exam 08/24/20: Doing well Spirits doing well since the of his yesterday Venofer infusion today BM ok 08/23/20: Went to a of his Doing well Ambulating well with one person Bowels moved yesterday 08/22/20: Pt doing a lot better Having a visitation today at five Transfers are okay with the wheelchair Bowels moved on the 08/20 IV iron infusions maintained Overall getting stronger 08/21/20: Pt doing pretty well Family training in order to bring him to the of his this week Overall doing pretty well 08/20/20: Pt doing pretty well Dr. Doe evaluated him today Hgb 8.7 Potassium 3.4 He fell last night in the bathroom and daughters were aware of that He may very well require a jail for 24/7 supervision 08/19/20: Patient doing well since last evening Tely reveals AF now Dr De Paz changed pyridium to prn Incontinence last night Ate bfast Venofer yesterday 08/18/20: Patient back and forth between his 's room upstairs since she is dying Slept well last night NSR on Tely Catheter DC Dr De Paz consulted Venofer will be given due to iron def 08/17/20: Patient became confused at midnight Xanax 0.25mg caused a bit of oversedation Patient converted to NSR on Tely HR 50's SLUMS 17 terminal upstairs 08/16/20: Patient doing well Hgb 8.9 Iron level pending Urinary frequency noted No retention noted Remeron started for insomnia Had confusion at 1800 so started antipsychotics and placed dc SLUMS 17 Without his to compensate for him, since she is admitted acute, it is clear how declined he really is Review of Systems General: Fatigue, Malaise Pulmonary: Dyspnea Neurological: Weakness, Incoordination Objective Exam Vital Signs Vital Signs Date Time Temp Pulse Resp B/P (MAP) Pulse Ox O2 Delivery O2 Flow Rate FiO2 08/25/20 09:19 Room Air 08/25/20 07:30 36.3 60 18 126/59 (81) 90 Capillary Refill : General Appearance: No Apparent Distress, WD/WN, Chronically ill, Obese HEENT: PERRL/EOMI, Normal ENT Inspection, Pharynx Normal Neck: Full Range of Motion, Normal Inspection, Non Tender, Supple, Carotid Bruit Respiratory: Chest Non Tender, Lungs Clear, No Accessory Muscle Use, No Respiratory Distress, Decreased Breath Sounds Cardiovascular: Regular Rate, Rhythm, No Edema, No Gallop, No JVD, No Murmur, Normal Peripheral Pulses Gastrointestinal: Normal Bowel Sounds, No Organomegaly, No Pulsatile Mass, Non Tender, Soft Back: Normal Inspection, No CVA Tenderness, No Vertebral Tenderness Extremity: Normal Capillary Refill, Normal Inspection, Normal Range of Motion, Non Tender, No Calf Tenderness, No Pedal Edema Neurologic/Psychiatric: Alert, Oriented x3, Abnormal Gait, Depressed Affect, Motor Weakness (generalized) Skin: Normal Color, Warm/Dry Lymphatic: No Adenopathy Results/Procedures Lab Patient resulted labs reviewed. FIM Transfers Therapy Code Descriptions/Definitions Functional [place] Measure: 0=Not Assessed/NA 4=Minimal Assistance 1=Total Assistance 5=Supervision or Setup 2=Maximal Assistance 6=Modified [place] 3=Moderate Assistance 7=Complete IndependenceSCALE: Activities may be completed with or without assistive devices. 0-Abmconcuxw-vvazsuq completes the activity by him/herself with no assistance from a helper. 5-Set-up or Clean-up Assistance-helper sets up or cleans up; patient completes activity. [place] assists only prior to or following the activity. 4-Supervision or Touching Assistance-helper provides verbal cues and/or juan alexia/steadying and/or contact guard assistance as patient completes activity. Assistance may be provided throughout the activity or intermittently. 3-Partial/Moderate Assistance-helper does LESS THAN HALF the effort. [place] lifts, holds or supports trunk or limbs, but provides less than half the effort. 2-Substantial/Maximal Assistance-helper does MORE THAN HALF the effort. [place] lifts or holds trunk or limbs and provides more than half the effort. 3-Bumnhgpjw-eikfga does ALL the effort. Patient does none of the effort to complete the activity. Or, the assistance of 2 or more helpers is required for the patient to complete the activity. If activity was not attempted, code reason: 7-Patient Refused. 9-Not Applicable-not attempted and the patient did not perform the activity before the current illness, exacerbation or injury. 10-Not Attempted due to Environmental Limitations-(lack of equipment, weather restraints, etc.). 88-Not Attempted due to Medical Conditions or Safety Concerns. Roll Left to Right (QC): 4 Sit to Lying (QC): 5 Sit to Stand (QC): 5 Chair/Ouh-ko-Kqbhh Xfer(QC): 5 Car Transfer (QC): 3 (Patient needs assistance with legs with getting in/out of vehicle.) Gait Training Does the Patient Walk?: Yes Distance: 20' Walk 10 feet (QC): 4 Walk 50 ft with 2 Turns(QC): 4 Walk 150 ft (QC): 4 Walking 10ft/uneven surface-QC: 88 Gait Persons Needed: 1 Gait Assistive Device: FWW Wheelchair Training Does the Pt Use a Wheelchair?: Yes Distance: 50' Wheel 50 ft with 2 turns (QC): 4 Wheel 150 ft (QC): 88 Type of Wheelchair: Manual Stair Training Stair Training: Handrails/: 1 handrail, uses walker #of Steps: 1 1 Step (curb) (QC): 4 (CGA) 4 Steps (QC): 88 12 Steps (QC): 88 Balance Picking up an Object (QC): 88 ADL-Treatment Eating (QC): 6 Oral Hygiene (QC): 7 Bathing Location: L Arm, R Arm, L Upper Leg, R Upper Leg, Chest, Abdomen, Perineal Area Shower/Bathe Self (QC): 3 (min A (bottom care only) pt denies washing feet.) Upper Body Dressing (QC): 3 (mod A adjusting garment in front/ back, decreased shoulder flexion/ strength.) Lower Body Dressing (QC): 2 (Max assist overall to don pants. Pt. attempts to don them over feet, but is unable to clear foot in them. Requires max assist to don them over hips, and assist to fasten them.) On/Off Footwear (QC): 2 (Pt. attempts first without sock aide to don socks, and then with sock aide. He is unable to do either without max assist.) Toileting Hygiene (QC): 2 Toilet Transfer (QC): 3 (Min assist) Assessment/Plan Assessment and Plan Assess & Plan/Chief Complaint Assessment: Ventricular arrhythmia A fib new onset OAC new HTN Lupus Obesity Urinary retention since dc DC Pneumonitis CRI Dementia SLUMS 17 Sundowning Anemia iron def Plan: Monitor closely Cardiology appreciated Monitor creat Urinary retention management 08/16/20: Dc cath Monitor closely Anti-psychotics 08/17/20: Monitor closely Cardiology appreciated 08/18/20: Venofer iron infusion Support through 's dying process 08/19/20: Monitor incontinence AF on Tely 08/20/20: Monitor closely Venofer 08/21/20: Venofer Tely Monitor closely 08/22/20: Monitor BP and HR Fall risk 08/23/20: Monitor BP Telemetry 08/24/20: Monitor Tely Improved status Son will live with patient at DC (1) Ventricular arrhythmia (2) Pneumonitis (3) Knee pain, right (4) Atrial fibrillation (5) Falls frequently (6) Urinary retention (7) Lupus Status: Chronic (8) Hypertension Status: Acute (9) Leg edema Status: Acute (10) Renal insufficiency Status: Acute ELDA LUNA DO Aug 24, 2020 10:44
--- NOTE | 2020-08-24 13:26 | Speech Therapy Daily Note ---
Speech Daily Progress Note Subjective Date Seen by Provider: Aug 24, 2020 Time Seen by Provider: 00:30 Pt was asleep in the recliner. Pt agreed to ST services upon waking up. Pt was alert and talkative. Objective Pt completed memory tasks related to daily needs at 80% with minimal cues. Assessment Assessment Current Status: Good Progress Treatment Plan Continue Plan of Care Speech Short Term Goals Short Term Goals Short Term Goals Pt will complete memory tasks related to daily needs at 80% or greater with minimal cues. Pt will complete safety awareness tasks related to daily needs at 80% or greater with minimal cues. Pt will complete problem solving tasks related to daily needs at 80% or greater with minimal cues. Speech Leather Scrubber Goals Leather Scrubber Goals Pt will improve cognitive communication abilities so that he can complete daily tasks with minimal assist. Speech-Plan Patient/Family Goals Patient/Family Goals: Pt mentioned receiving PT services upon d/c from [facility]. Treatment Plan Speech Therapy Treatment Plan: Continue Plan of Care Treatment Duration: Aug 29, 2020 Frequency: 4 times per week (Patient will receive skilled ST 4-5x per week) Estimated Hrs Per Day: .5 hour per day Rehab Potential: Fair Barriers to Learning: Decreased memory due to age. Pt/Family Agrees to Plan: Yes Safety Risks/Education Teaching Recipient: Patient Teaching Methods: Demonstration, Discussion Response to Teaching: Verbalize Understanding, Return Demonstration Education Topics Provided: Safety and compensatory memory strategies Time Speech Therapy Time In: 12:45 Speech Therapy Time Out: 13:15 Total Billed Time: 30 Billed Treatment Time 1, SUSANA Mccann Aug 24, 2020 13:26
[2020-08-24] MEDS: HYDROXYCHLOROQUINE 200 MG (PLAQUENIL) TAB PO SCH (13:27)
[2020-08-24] MEDS: TAMSULOSIN 0.4 MG (FLOMAX) CAP PO SCH (18:48)
[2020-08-24 20:00] VITALS: BP 137/69
[2020-08-24] MEDS: MIRTAZAPINE 15 MG (REMERON) TAB PO SCH (21:39)
[2020-08-24] MEDS: LATANOPROST 0.005% (XALATAN) OPHTH SOLN 2.5 ML OU SCH (21:39)
[2020-08-24] MEDS: IBUPROFEN TABLET 200 MG TAB PO PRN (21:40)
[2020-08-24] MEDS: OLANZapine 2.5 MG (ZyPREXA) TAB PO SCH (21:40)
[2020-08-25] MEDS: VENlafaxine XR 75 MG (EFFEXOR XR) CAP PO SCH (06:01)
[2020-08-25] MEDS: CATHETER FLUSH 10 ML SYR IV SCH ×3 (06:02→21:34)
[2020-08-25 07:30] VITALS: BP 126/59
[2020-08-25] MEDS: APIXABAN 5 MG (ELIQUIS) TABLET PO SCH ×2 (08:18→21:33)
[2020-08-25] MEDS: SENNA W/DOCUSATE (SENOKOT S) TABLET PO SCH ×2 (08:18→21:33)
[2020-08-25] MEDS: AMIODARONE 200 MG (CORDARONE) TAB PO SCH ×2 (08:18→21:33)
[2020-08-25] MEDS: BUMETANIDE 1 MG (BUMEX) TAB PO SCH (08:18)
[2020-08-25] MEDS: DOCUSATE SODIUM 100 MG (COLACE) CAP PO SCH ×2 (08:18→21:33)
[2020-08-25] MEDS: polyethylene glycoL POWDER 17 GM (MIRALAX) PACK PO SCH ×2 (08:19→19:37)
--- NOTE | 2020-08-25 11:05 | Physical Therapy Daily Note ---
PT Daily Note-Current Subjective Pt is in the chair and agreeable to treatment. Mental Status Patient Orientation: Person, Place, Time, Situation Attachments: Oxygen Transfers SCALE: Activities may be completed with or without assistive devices. 2-Vvmoibkide-eysqjnq completes the activity by him/herself with no assistance from a helper. 5-Set-up or Clean-up Assistance-helper sets up or cleans up; patient completes activity. [place] assists only prior to or following the activity. 4-Supervision or Touching Assistance-helper provides verbal cues and/or touching/steadying and/or contact guard assistance as patient completes activity. Assistance may be provided throughout the activity or intermittently. 3-Partial/Moderate Assistance-helper does LESS THAN HALF the effort. [place] lifts, holds or supports trunk or limbs, but provides less than half the effort. 2-Substantial/Maximal Assistance-helper does MORE THAN HALF the effort. [place] lifts or holds trunk or limbs and provides more than half the effort. 3-Vcxktferi-mygmgj does ALL the effort. Patient does none of the effort to complete the activity. Or, the assistance of 2 or more helpers is required for the patient to complete the activity. If activity was not attempted, code reason: 7-Patient Refused. 9-Not Applicable-not attempted and the patient did not perform the activity before the current illness, exacerbation or injury. 10-Not Attempted due to Environmental Limitations-(lack of equipment, weather restraints, etc.). 88-Not Attempted due to Medical Conditions or Safety Concerns. Sit to Stand (QC): 4 Weight Bearing Full Weight Bearing Full Weight Bearing Gait Training Does the Patient Walk?: Yes Distance: 100ft Walk 10 feet (QC): 5 Walk 50 ft with 2 Turns(QC): 5 Gait Persons Needed: 1 Gait Assistive Device: FWW Exercises Seated Therapy Exercises: LE Protocol Seated Reps: 15 Assessment Current Status: Good Progress No issues with treatment. Ready to progress as tolerated. PT Short Term Goals Short Term Goals Time Frame: Aug 22, 2020 Roll Left & Right: 4 (SBA) Sit to lyin (SBA) Lying to sitting on side of be: 4 (SBA) Sit to stand: 4 (SBA) Chair/odv-to-nkslh transfer: 4 (SBA) Toilet transfer: 4 (SBA) Car transfer: 4 (SBA) Walk 10 feet: 4 (CGA) Walk 50 feet with two turns: 4 (CGA) Walk 150 feet: 4 (CGA) Walking 10ft on uneven surface: 3 (min) 1 step (curb): 3 (min) Does pt use a wc or scooter: Yes Wheel 50ft w/2 turns: 4 (SBA) Wheel 150 feet: 4 (SBA) Type: Manual PT Value Analyst Goals Value Analyst Goals PT Value Analyst Goals Time Frame: Sep 05, 2020 Roll Left & Right (QC): 5 Sit to Lying (QC): 5 Lying-Sitting on Side/Bed(QC): 5 Sit to Stand (QC): 5 Chair/Qfp-av-Vvjlx Xfer(QC): 5 Toilet Transfer (QC): 5 Car Transfer (QC): 5 Does the Patient Walk: Yes Walk 10 feet (QC): 5 Walk 50ft with 2 Turns (QC): 5 Walk 150 ft (QC): 5 Walking 10ft on Uneven Surface: 5 1 Step (curb) (QC): 5 4 Steps (QC): 5 12 Steps (QC): 9 Picking up an Object (QC): 5 Does the Pt use WC or Scooter?: No Wheel 50 feet with 2 turns (QC: 5 Type: Manual Wheel 150 feet: 5 Type: Manual PT Plan Treatment/Plan Treatment Plan: Continue Plan of Care Treatment Plan: Bed Mobility, Education, Functional Activity Sallie, Functional Strength, Group Therapy, Gait, Safety, Therapeutic Exercise, Transfers Treatment Duration: Sep 05, 2020 Frequency: At least 5 of 7 days/Wk (IRF) Estimated Hrs Per Day: 1.5 hours per day Patient and/or Family Agrees t: Yes Time/GCodes Time In: 919 Time Out: 932 Total Billed Treatment Time: 13 Total Billed Treatment 1, gt 13 LEIGH ANN RODRIGUEZ PT Aug 25, 2020 11:05
[2020-08-25] MEDS: HYDROXYCHLOROQUINE 200 MG (PLAQUENIL) TAB PO SCH (12:08)
--- NOTE | 2020-08-25 12:47 | PM&R Progress Note ---
Subjective HPI/CC On Admission Date Seen by Provider: Aug 25, 2020 Time Seen by Provider: 13:00 Subjective/Events-last exam 08/25/20: Patient doing well JERED's and SERENA wraps placed for edema No dyspnea 08/24/20: Doing well Spirits doing well since the of his yesterday Venofer infusion today BM ok 08/23/20: Went to a of his Doing well Ambulating well with one person Bowels moved yesterday 08/22/20: Pt doing a lot better Having a visitation today at five Transfers are okay with the wheelchair Bowels moved on the 08/20 IV iron infusions maintained Overall getting stronger 08/21/20: Pt doing pretty well Family training in order to bring him to the of his this week Overall doing pretty well 08/20/20: Pt doing pretty well Dr. Doe evaluated him today Hgb 8.7 Potassium 3.4 He fell last night in the bathroom and daughters were aware of that He may very well require a [facility] for 01/12 supervision 08/19/20: Patient doing well since last evening Tely reveals AF now Dr De Paz changed pyridium to prn Incontinence last night Ate bfast Venofer yesterday 08/18/20: Patient back and forth between his 's room upstairs since she is dying Slept well last night NSR on Tely Catheter DC Dr De Paz consulted Venofer will be given due to iron def 08/17/20: Patient became confused at midnight Xanax 0.25mg caused a bit of oversedation Patient converted to NSR on Tely HR 50's SLUMS 17 terminal upstairs 08/16/20: Patient doing well Hgb 8.9 Iron level pending Urinary frequency noted No retention noted Remeron started for insomnia Had confusion at 1800 so started antipsychotics and placed dc SLUMS 17 Without his to compensate for him, since she is admitted acute, it is clear how declined he really is Review of Systems General: Fatigue Cardiovascular: Edema Objective Exam Vital Signs Vital Signs Date Time Temp Pulse Resp B/P (MAP) Pulse Ox O2 Delivery O2 Flow Rate FiO2 08/26/20 01:00 81 08/25/20 20:00 Room Air 08/25/20 19:52 37.4 20 150/65 (93) 93 Capillary Refill : General Appearance: No Apparent Distress, WD/WN, Chronically ill, Obese HEENT: PERRL/EOMI, Normal ENT Inspection, Pharynx Normal Neck: Full Range of Motion, Normal Inspection, Non Tender, Supple, Carotid Bruit Respiratory: Chest Non Tender, Lungs Clear, No Accessory Muscle Use, No Respiratory Distress, Decreased Breath Sounds Cardiovascular: Regular Rate, Rhythm, No Edema, No Gallop, No JVD, No Murmur, Normal Peripheral Pulses Gastrointestinal: Normal Bowel Sounds, No Organomegaly, No Pulsatile Mass, Non Tender, Soft Back: Normal Inspection, No CVA Tenderness, No Vertebral Tenderness Extremity: Normal Capillary Refill, Normal Inspection, Normal Range of Motion, Non Tender, No Calf Tenderness, No Pedal Edema Neurologic/Psychiatric: Alert, Oriented x3, Abnormal Gait, Depressed Affect, Motor Weakness (generalized) Skin: Normal Color, Warm/Dry Lymphatic: No Adenopathy Results/Procedures Lab Patient resulted labs reviewed. FIM Transfers Therapy Code Descriptions/Definitions Functional [place] Measure: 0=Not Assessed/NA 4=Minimal Assistance 1=Total Assistance 5=Supervision or Setup 2=Maximal Assistance 6=Modified [place] 3=Moderate Assistance 7=Complete IndependenceSCALE: Activities may be completed with or without assistive devices. 0-Otxjulrbij-vwfuvpq completes the activity by him/herself with no assistance from a helper. 5-Set-up or Clean-up Assistance-helper sets up or cleans up; patient completes activity. [place] assists only prior to or following the activity. 4-Supervision or Touching Assistance-helper provides verbal cues and/or touching/steadying and/or contact guard assistance as patient completes activity. Assistance may be provided throughout the activity or intermittently. 3-Partial/Moderate Assistance-helper does LESS THAN HALF the effort. [place] lifts, holds or supports trunk or limbs, but provides less than half the effort. 2-Substantial/Maximal Assistance-helper does MORE THAN HALF the effort. [place] lifts or holds trunk or limbs and provides more than half the effort. 8-Ldkdhbixb-nhpzgv does ALL the effort. Patient does none of the effort to complete the activity. Or, the assistance of 2 or more helpers is required for the patient to complete the activity. If activity was not attempted, code reason: 7-Patient Refused. 9-Not Applicable-not attempted and the patient did not perform the activity before the current illness, exacerbation or injury. 10-Not Attempted due to Environmental Limitations-(lack of equipment, weather restraints, etc.). 88-Not Attempted due to Medical Conditions or Safety Concerns. Roll Left to Right (QC): 4 Sit to Lying (QC): 5 Sit to Stand (QC): 4 Chair/Iqo-qj-Vwfvj Xfer(QC): 5 Car Transfer (QC): 3 (Patient needs assistance with legs with getting in/out of vehicle.) Gait Training Does the Patient Walk?: Yes Distance: 100ft Walk 10 feet (QC): 5 Walk 50 ft with 2 Turns(QC): 5 Walk 150 ft (QC): 4 Walking 10ft/uneven surface-QC: 88 Gait Persons Needed: 1 Gait Assistive Device: FWW Wheelchair Training Does the Pt Use a Wheelchair?: Yes Distance: 50' Wheel 50 ft with 2 turns (QC): 4 Wheel 150 ft (QC): 88 Type of Wheelchair: Manual Stair Training Stair Training: Handrails/: 1 handrail, uses walker #of Steps: 1 1 Step (curb) (QC): 4 (CGA) 4 Steps (QC): 88 12 Steps (QC): 88 Balance Picking up an Object (QC): 88 ADL-Treatment Eating (QC): 6 Oral Hygiene (QC): 7 Bathing Location: L Arm, R Arm, L Upper Leg, R Upper Leg, Chest, Abdomen, Perineal Area Shower/Bathe Self (QC): 3 (min A (bottom care only) pt denies washing feet.) Upper Body Dressing (QC): 3 (mod A adjusting garment in front/ back, decreased shoulder flexion/ strength.) Lower Body Dressing (QC): 3 (mid A- pt able to thread undergarments with min A, requires min A for adjustment on toes of the pants as well. pt able to stand and complete hike with CGA. ) On/Off Footwear (QC): 3 (pt able to place foot in shoe, however, requires assist for heel adjustment) Toileting Hygiene (QC): 2 (max A bottom care in shower) Toilet Transfer (QC): 4 (CGA) Assessment/Plan Assessment and Plan Assess & Plan/Chief Complaint Assessment: Ventricular arrhythmia A fib new onset OAC new HTN Lupus Obesity Urinary retention since dc DC Pneumonitis CRI Dementia SLUMS 17 Sundowning Anemia iron def Plan: Monitor closely Cardiology appreciated Monitor creat Urinary retention management 08/16/20: Dc cath Monitor closely Anti-psychotics 08/17/20: Monitor closely Cardiology appreciated 08/18/20: Venofer iron infusion Support through 's dying process 08/19/20: Monitor incontinence AF on Tely 08/20/20: Monitor closely Venofer 08/21/20: Venofer Tely Monitor closely 08/22/20: Monitor BP and HR Fall risk 08/23/20: Monitor BP Telemetry 08/24/20: Monitor Tely Improved status Son will live with patient at DC 08/25/20: Monitor edema JERED/SERENA wraps Monitor tely (1) Ventricular arrhythmia (2) Pneumonitis (3) Knee pain, right (4) Atrial fibrillation (5) Falls frequently (6) Urinary retention (7) Lupus Status: Chronic (8) Hypertension Status: Acute (9) Leg edema Status: Acute (10) Renal insufficiency Status: Acute ELDA LUNA DO Aug 25, 2020 12:47
[2020-08-25] MEDS: TAMSULOSIN 0.4 MG (FLOMAX) CAP PO SCH (17:00)
[2020-08-25 19:52] VITALS: BP 150/65
[2020-08-25] MEDS: OLANZapine 2.5 MG (ZyPREXA) TAB PO SCH (21:33)
[2020-08-25] MEDS: MIRTAZAPINE 15 MG (REMERON) TAB PO SCH (21:34)
[2020-08-25] MEDS: LATANOPROST 0.005% (XALATAN) OPHTH SOLN 2.5 ML OU SCH (21:35)
[2020-08-26] MEDS: MELATONIN 3 MG TABLET PO PRN ×2 (02:12→21:05)
[2020-08-26] MEDS: VENlafaxine XR 75 MG (EFFEXOR XR) CAP PO SCH (06:32)
[2020-08-26] MEDS: CATHETER FLUSH 10 ML SYR IV SCH ×3 (06:32→21:06)
[2020-08-26 07:15] VITALS: BP 123/68
[2020-08-26] MEDS: DOCUSATE SODIUM 100 MG (COLACE) CAP PO SCH ×2 (08:37→21:06)
[2020-08-26] MEDS: polyethylene glycoL POWDER 17 GM (MIRALAX) PACK PO SCH ×2 (08:37→21:06)
[2020-08-26] MEDS: APIXABAN 5 MG (ELIQUIS) TABLET PO SCH ×2 (08:37→21:06)
[2020-08-26] MEDS: IRON SUCROSE 200 MG/10 ML (VENOFER) VIAL IV SCH (08:37)
[2020-08-26] MEDS: BUMETANIDE 1 MG (BUMEX) TAB PO SCH (08:37)
[2020-08-26] MEDS: AMIODARONE 200 MG (CORDARONE) TAB PO SCH ×2 (08:37→21:05)
[2020-08-26] MEDS: SENNA W/DOCUSATE (SENOKOT S) TABLET PO SCH ×2 (08:37→21:06)
--- NOTE | 2020-08-26 11:51 | PM&R Progress Note ---
Subjective HPI/CC On Admission Date Seen by Provider: Aug 26, 2020 Time Seen by Provider: 12:00 Subjective/Events-last exam 08/26/20: Patient doing well Dizziness is still an issues he reports Patient appears very chronically ill Reassured patient and daughter Checked meds and labs 08/25/20: Patient doing well JERED's and SERENA wraps placed for edema No dyspnea 08/24/20: Doing well Spirits doing well since the of his yesterday Venofer infusion today BM ok 08/23/20: Went to a of his Doing well Ambulating well with one person Bowels moved yesterday 08/22/20: Pt doing a lot better Having a visitation today at five Transfers are okay with the wheelchair Bowels moved on the 08/20 IV iron infusions maintained Overall getting stronger 08/21/20: Pt doing pretty well Family training in order to bring him to the of his this week Overall doing pretty well 08/20/20: Pt doing pretty well Dr. Doe evaluated him today Hgb 8.7 Potassium 3.4 He fell last night in the bathroom and daughters were aware of that He may very well require a residential for 24/ supervision 08/19/20: Patient doing well since last evening Tely reveals AF now Dr De Paz changed pyridium to prn Incontinence last night Ate bfast Venofer yesterday 08/18/20: Patient back and forth between his 's room upstairs since she is dying Slept well last night NSR on Tely Catheter DC Dr De Paz consulted Venofer will be given due to iron def 08/17/20: Patient became confused at midnight Xanax 0.25mg caused a bit of oversedation Patient converted to NSR on Tely HR 50's SLUMS 17 terminal upstairs 08/16/20: Patient doing well Hgb 8.9 Iron level pending Urinary frequency noted No retention noted Remeron started for insomnia Had confusion at 1800 so started antipsychotics and placed dc SLUMS 17 Without his to compensate for him, since she is admitted acute, it is clear how declined he really is Review of Systems General: Fatigue, Malaise Pulmonary: Dyspnea Neurological: Weakness Objective Exam Vital Signs Vital Signs Date Time Temp Pulse Resp B/P (MAP) Pulse Ox O2 Delivery O2 Flow Rate FiO2 08/26/20 19:23 37.2 68 20 145/68 (93) 93 Room Air Capillary Refill : General Appearance: No Apparent Distress, WD/WN, Chronically ill, Obese HEENT: PERRL/EOMI, Normal ENT Inspection, Pharynx Normal Neck: Full Range of Motion, Normal Inspection, Non Tender, Supple, Carotid Bruit Respiratory: Chest Non Tender, Lungs Clear, No Accessory Muscle Use, No Re spiratory Distress, Decreased Breath Sounds Cardiovascular: Regular Rate, Rhythm, No Edema, No Gallop, No JVD, No Murmur, Normal Peripheral Pulses Gastrointestinal: Normal Bowel Sounds, No Organomegaly, No Pulsatile Mass, Non Tender, Soft Back: Normal Inspection, No CVA Tenderness, No Vertebral Tenderness Extremity: Normal Capillary Refill, Normal Inspection, Normal Range of Motion, Non Tender, No Calf Tenderness, No Pedal Edema Neurologic/Psychiatric: Alert, Oriented x3, Abnormal Gait, Depressed Affect, Motor Weakness (generalized) Skin: Normal Color, Warm/Dry Lymphatic: No Adenopathy Results/Procedures Lab Patient resulted labs reviewed. FIM Transfers Therapy Code Descriptions/Definitions Functional [place] Measure: 0=Not Assessed/NA 4=Minimal Assistance 1=Total Assistance 5=Supervision or Setup 2=Maximal Assistance 6=Modified [place] 3=Moderate Assistance 7=Complete IndependenceSCALE: Activities may be completed with or without assistive devices. 0-Mummzigyje-oczaslw completes the activity by him/herself with no assistance from a helper. 5-Set-up or Clean-up Assistance-helper sets up or cleans up; patient completes activity. [place] assists only prior to or following the activity. 4-Supervision or Touching Assistance-helper provides verbal cues and/or touching/steadying and/or contact guard assistance as patient completes activity. Assistance may be provided throughout the activity or intermittently. 3-Partial/Moderate Assistance-helper does LESS THAN HALF the effort. [place] lifts, holds or supports trunk or limbs, but provides less than half the effort. 2-Substantial/Maximal Assistance-helper does MORE THAN HALF the effort. [place] lifts or holds trunk or limbs and provides more than half the effort. 6-Bshatkigl-vbtinq does ALL the effort. Patient does none of the effort to complete the activity. Or, the assistance of 2 or more helpers is required for the patient to complete the activity. If activity was not attempted, code reason: 7-Patient Refused. 9-Not Applicable-not attempted and the patient did not perform the activity before the current illness, exacerbation or injury. 10-Not Attempted due to Environmental Limitations-(lack of equipment, weather restraints, etc.). 88-Not Attempted due to Medical Conditions or Safety Concerns. Roll Left to Right (QC): 4 Sit to Lying (QC): 5 Sit to Stand (QC): 4 Chair/Gpy-ac-Ydmxp Xfer(QC): 5 Car Transfer (QC): 3 (Patient needs assistance with legs with getting in/out of vehicle.) Gait Training Does the Patient Walk?: Yes Distance: 100ft Walk 10 feet (QC): 5 Walk 50 ft with 2 Turns(QC): 5 Walk 150 ft (QC): 4 Walking 10ft/uneven surface-QC: 88 Gait Persons Needed: 1 Gait Assistive Device: FWW Wheelchair Training Does the Pt Use a Wheelchair?: Yes Distance: 50' Wheel 50 ft with 2 turns (QC): 4 Wheel 150 ft (QC): 88 Type of Wheelchair: Manual Stair Training Stair Training: Handrails/: 1 handrail, uses walker #of Steps: 1 1 Step (curb) (QC): 4 (CGA) 4 Steps (QC): 88 12 Steps (QC): 88 Balance Picking up an Object (QC): 88 ADL-Treatment Eating (QC): 6 Oral Hygiene (QC): 7 Bathing Location: L Arm, R Arm, L Upper Leg, R Upper Leg, Chest, Abdomen, Perineal Area Shower/Bathe Self (QC): 3 (min A (bottom care only) pt denies washing feet.) Upper Body Dressing (QC): 3 (mod A adjusting garment in front/ back, decreased shoulder flexion/ strength.) Lower Body Dressing (QC): 3 (mid A- pt able to thread undergarments with min A, requires min A for adjustment on toes of the pants as well. pt able to stand and complete hike with CGA. ) On/Off Footwear (QC): 3 (pt able to place foot in shoe, however, requires assist for heel adjustment) Toileting Hygiene (QC): 2 (max A bottom care in shower) Toilet Transfer (QC): 4 (CGA) Assessment/Plan Assessment and Plan Assess & Plan/Chief Complaint Assessment: Ventricular arrhythmia A fib new onset OAC new HTN Lupus Obesity Urinary retention since dc DC Pneumonitis CRI Dementia SLUMS 17 Sundowning Anemia iron def Plan: Monitor closely Cardiology appreciated Monitor creat Urinary retention management 08/16/20: Dc cath Monitor closely Anti-psychotics 08/17/20: Monitor closely Cardiology appreciated 08/18/20: Venofer iron infusion Support through 's dying process 08/19/20: Monitor incontinence AF on Tely 08/20/20: Monitor closely Venofer 08/21/20: Venofer Tely Monitor closely 08/22/20: Monitor BP and HR Fall risk 08/23/20: Monitor BP Telemetry 08/24/20: Monitor Tely Improved status Son will live with patient at DC 08/25/20: Monitor edema JERED/SERENA wraps Monitor tely 08/26/20: Labs in am DC this week No pain reported (1) Ventricular arrhythmia (2) Pneumonitis (3) Knee pain, right (4) Atrial fibrillation (5) Falls frequently (6) Urinary retention (7) Lupus Status: Chronic (8) Hypertension Status: Acute (9) Leg edema Status: Acute (10) Renal insufficiency Status: Acute ELDA LUNA DO Aug 26, 2020 11:51
[2020-08-26] MEDS: HYDROXYCHLOROQUINE 200 MG (PLAQUENIL) TAB PO SCH (12:37)
[2020-08-26] MEDS: TAMSULOSIN 0.4 MG (FLOMAX) CAP PO SCH (17:17)
[2020-08-26 19:23] VITALS: BP 145/68
[2020-08-26] MEDS: LATANOPROST 0.005% (XALATAN) OPHTH SOLN 2.5 ML OU SCH (21:05)
[2020-08-26] MEDS: IBUPROFEN TABLET 200 MG TAB PO PRN (21:05)
[2020-08-26] MEDS: OLANZapine 2.5 MG (ZyPREXA) TAB PO SCH (21:05)
[2020-08-26] MEDS: MIRTAZAPINE 15 MG (REMERON) TAB PO SCH (21:06)
[2020-08-27 05:34] LABS: BASOPHILS # (AUTO) 0.1 10^3/uL (0.0-0.1); BASOPHILS % (AUTO) 1 % (0-10); EOSINOPHILS # (AUTO) 0.4 10^3/uL (0.0-0.3); EOSINOPHILS % (AUTO) 6 % (0-10); HEMATOCRIT 32 % (40-54); HEMOGLOBIN 9.9 g/dL (13.3-17.7); LYMPHOCYTES % (AUTO) 13 % (12-44); MEAN CORPUSCULAR HEMOGLOBIN 29 pg (25-34); MEAN CORPUSCULAR HGB CONC 31 g/dL (32-36); MEAN CORPUSCULAR VOLUME 94 fL (80-99); MEAN PLATELET VOLUME 10.8 fL (9.0-12.2); MONOCYTES # (AUTO) 0.9 10^3/uL (0.0-1.0); MONOCYTES % (AUTO) 13 % (0-12); NEUTROPHILS % (AUTO) 67 % (42-75); PLATELET COUNT 219 10^3/uL (130-400); WHITE BLOOD COUNT 7.5 10^3/uL (4.3-11.0)
[2020-08-27 05:45] LABS: ALBUMIN 2.9 GM/DL (3.2-4.5); CHLORIDE 101 MMOL/L (98-107); SODIUM 138 MMOL/L (135-145)
[2020-08-27 05:47] LABS: CALCIUM 8.2 MG/DL (8.5-10.1)
[2020-08-27 05:48] LABS: GLUCOSE 97 MG/DL (70-105); TOTAL PROTEIN 6.3 GM/DL (6.4-8.2)
[2020-08-27 05:49] LABS: CARBON DIOXIDE 27 MMOL/L (21-32)
[2020-08-27 05:50] LABS: BILIRUBIN,TOTAL 0.8 MG/DL (0.1-1.0)
[2020-08-27 05:51] LABS: ALKALINE PHOSPHATASE 51 U/L (40-136); CREATININE SERUM 1.12 MG/DL (0.60-1.30); GFR ESTIMATED > 60
[2020-08-27 05:52] LABS: BUN/CREATININE RATIO 13
[2020-08-27 05:54] LABS: ALANINE AMINOTRANSFERASE 17 U/L (0-55)
[2020-08-27] MEDS: VENlafaxine XR 75 MG (EFFEXOR XR) CAP PO SCH (06:28)
[2020-08-27] MEDS: KCL 20 MEQ TAB (K-DUR) PO SCH (06:28)
[2020-08-27] MEDS: CATHETER FLUSH 10 ML SYR IV SCH ×3 (06:29→22:46)
[2020-08-27] MEDS: DOCUSATE SODIUM 100 MG (COLACE) CAP PO SCH ×2 (07:53→20:43)
[2020-08-27] MEDS: SENNA W/DOCUSATE (SENOKOT S) TABLET PO SCH ×2 (07:53→20:43)
[2020-08-27] MEDS: AMIODARONE 200 MG (CORDARONE) TAB PO SCH ×2 (07:53→20:39)
[2020-08-27] MEDS: BUMETANIDE 1 MG (BUMEX) TAB PO SCH (07:53)
[2020-08-27] MEDS: APIXABAN 5 MG (ELIQUIS) TABLET PO SCH ×2 (07:53→20:39)
[2020-08-27 08:00] VITALS: BP 131/60
--- NOTE | 2020-08-27 08:33 | PM&R Progress Note ---
Subjective HPI/CC On Admission Date Seen by Provider: Aug 27, 2020 Time Seen by Provider: 08:45 Subjective/Events-last exam 08/27/20: Pt doing a lot better DC Thursday to a group home to get house ready for son to live with him Bowels moved yesterday Hgb 9.9 Will DC telemetry 08/26/20: Patient doing well Dizziness is still an issues he reports Patient appears very chronically ill Reassured patient and daughter Checked meds and labs 08/25/20: Patient doing well JERED's and SERENA wraps placed for edema No dyspnea 08/24/20: Doing well Spirits doing well since the of his yesterday Venofer infusion today BM ok 08/23/20: Went to a of his Doing well Ambulating well with one person Bowels moved yesterday 08/22/20: Pt doing a lot better Having a visitation today at five Transfers are okay with the wheelchair Bowels moved on the 08/20 IV iron infusions maintained Overall getting stronger 08/21/20: Pt doing pretty well Family training in order to bring him to the of his this week Overall doing pretty well 08/20/20: Pt doing pretty well Dr. Doe evaluated him today Hgb 8.7 Potassium 3.4 He fell last night in the bathroom and daughters were aware of that He may very well require a group home for 24/ supervision 08/19/20: Patient doing well since last evening Tely reveals AF now Dr De Paz changed pyridium to prn Incontinence last night Ate bfast Venofer yesterday 08/18/20: Patient back and forth between his 's room upstairs since she is dying Slept well last night NSR on Tely Catheter DC Dr De Paz consulted Venofer will be given due to iron def 08/17/20: Patient became confused at midnight Xanax 0.25mg caused a bit of oversedation Patient converted to NSR on Tely HR 50's SLUMS 17 terminal upstairs 08/16/20: Patient doing well Hgb 8.9 Iron level pending Urinary frequency noted No retention noted Remeron started for insomnia Had confusion at 1800 so started antipsychotics and placed dc SLUMS 17 Without his to compensate for him, since she is admitted acute, it is clear how declined he really is Review of Systems General: Fatigue Neurological: Weakness Objective Exam Vital Signs Vital Signs Date Time Temp Pulse Resp B/P (MAP) Pulse Ox O2 Delivery O2 Flow Rate FiO2 08/27/20 20:40 Room Air 08/27/20 20:35 37.4 78 20 144/64 (90) 92 Capillary Refill : General Appearance: No Apparent Distress, WD/WN, Chronically ill, Obese HEENT: PERRL/EOMI, Normal ENT Inspection, Pharynx Normal Neck: Full Range of Motion, Normal Inspection, Non Tender, Supple, Carotid Bruit Respiratory: Chest Non Tender, Lungs Clear, No Accessory Muscle Use, No Respiratory Distress, Decreased Breath Sounds Cardiovascular: Regular Rate, Rhythm, No Edema, No Gallop, No JVD, No Murmur, Normal Peripheral Pulses Gastrointestinal: Normal Bowel Sounds, No Organomegaly, No Pulsatile Mass, Non Tender, Soft Back: Normal Inspection, No CVA Tenderness, No Vertebral Tenderness Extremity: Normal Capillary Refill, Normal Inspection, Normal Range of Motion, Non Tender, No Calf Tenderness, No Pedal Edema Neurologic/Psychiatric: Alert, Oriented x3, Abnormal Gait, Depressed Affect, Motor Weakness (generalized) Skin: Normal Color, Warm/Dry Lymphatic: No Adenopathy Results/Procedures Lab Laboratory Tests 08/27/20 05:20 Patient resulted labs reviewed. FIM Transfers Therapy Code Descriptions/Definitions Functional [place] Measure: 0=Not Assessed/NA 4=Minimal Assistance 1=Total Assistance 5=Supervision or Setup 2=Maximal Assistance 6=Modified [place] 3=Moderate Assistance 7=Complete IndependenceSCALE: Activities may be completed with or without assistive devices. 0-Gbookybbyo-exdhrtj completes the activity by him/herself with no assistance from a helper. 5-Set-up or Clean-up Assistance-helper sets up or cleans up; patient completes activity. [place] assists only prior to or following the activity. 4-Supervision or Touching Assistance-helper provides verbal cues and/or touching/steadying and/or contact guard assistance as patient completes activity. Assistance may be provided throughout the activity or intermittently. 3-Partial/Moderate Assistance-helper does LESS THAN HALF the effort. [place] lifts, holds or supports trunk or limbs, but provides less than half the effort. 2-Substantial/Maximal Assistance-helper does MORE THAN HALF the effort. [place] lifts or holds trunk or limbs and provides more than half the effort. 0-Altzdaxqw-movlsi does ALL the effort. Patient does none of the effort to complete the activity. Or, the assistance of 2 or more helpers is required for the patient to complete the activity. If activity was not attempted, code reason: 7-Patient Refused. 9-Not Applicable-not attempted and the patient did not perform the activity before the current illness, exacerbation or injury. 10-Not Attempted due to Environmental Limitations-(lack of equipment, weather restraints, etc.). 88-Not Attempted due to Medical Conditions or Safety Concerns. Roll Left to Right (QC): 4 Sit to Lying (QC): 5 Sit to Stand (QC): 4 Chair/Kku-lo-Rckhy Xfer(QC): 5 Car Transfer (QC): 3 (Patient needs assistance with legs with getting in/out of vehicle.) Gait Training Does the Patient Walk?: Yes Distance: 100ft Walk 10 feet (QC): 5 Walk 50 ft with 2 Turns(QC): 5 Walk 150 ft (QC): 4 Walking 10ft/uneven surface-QC: 88 Gait Persons Needed: 1 Gait Assistive Device: FWW Wheelchair Training Does the Pt Use a Wheelchair?: Yes Distance: 50' Wheel 50 ft with 2 turns (QC): 4 Wheel 150 ft (QC): 88 Type of Wheelchair: Manual Stair Training Stair Training: Handrails/: 1 handrail, uses walker #of Steps: 1 1 Step (curb) (QC): 4 (CGA) 4 Steps (QC): 88 12 Steps (QC): 88 Balance Picking up an Object (QC): 88 ADL-Treatment Eating (QC): 6 Oral Hygiene (QC): 7 Bathing Location: L Arm, R Arm, L Upper Leg, R Upper Leg, Chest, Abdomen, Perineal Area Shower/Bathe Self (QC): 3 (min A (bottom care only) pt denies washing feet.) Upper Body Dressing (QC): 3 (mod A adjusting garment in front/ back, decreased shoulder flexion/ strength.) Lower Body Dressing (QC): 3 (mid A- pt able to thread undergarments with min A, requires min A for adjustment on toes of the pants as well. pt able to stand and complete hike with CGA. ) On/Off Footwear (QC): 3 (pt able to place foot in shoe, however, requires assist for heel adjustment) Toileting Hygiene (QC): 2 (max A bottom care in shower) Toilet Transfer (QC): 4 (CGA) Assessment/Plan Assessment and Plan Assess & Plan/Chief Complaint Assessment: Ventricular arrhythmia A fib new onset OAC new HTN Lupus Obesity Urinary retention since dc DC Pneumonitis CRI Dementia SLUMS 17 Sundowning Anemia iron def Plan: Monitor closely Cardiology appreciated Monitor creat Urinary retention management 08/16/20: Dc cath Monitor closely Anti-psychotics 08/17/20: Monitor closely Cardiology appreciated 08/18/20: Venofer iron infusion Support through 's dying process 08/19/20: Monitor incontinence AF on Tely 08/20/20: Monitor closely Venofer 08/21/20: Venofer Tely Monitor closely 08/22/20: Monitor BP and HR Fall risk 08/23/20: Monitor BP Telemetry 08/24/20: Monitor Tely Improved status Son will live with patient at DC 08/25/20: Monitor edema JERED/SERENA wraps Monitor tely 08/26/20: Labs in am DC this week No pain reported 08/27/20: Labs good DC tely (1) Ventricular arrhythmia (2) Pneumonitis (3) Knee pain, right (4) Atrial fibrillation (5) Falls frequently (6) Urinary retention (7) Lupus Status: Chronic (8) Hypertension Status: Acute (9) Leg edema Status: Acute (10) Renal insufficiency Status: Acute ELDA LUNA DO Aug 27, 2020 08:32
[2020-08-27] MEDS: polyethylene glycoL POWDER 17 GM (MIRALAX) PACK PO SCH ×2 (09:38→20:43)
--- NOTE | 2020-08-27 09:59 | Physical Therapy Daily Note ---
PT Daily Note-Current Subjective Pt reports he likes doing the nustep and that he feels like he is getting stronger. Pt states he would like to use the bathroom by himself standing but he feels leery about it. Pt reports on the last step of the stairs he felt hesitant when leaning forward and reaching for FWW because he was worried he may lose balance. ASSEMBLER FOR P[employer] OVER MACHINE explained to him that this is the safest way to step down from the last step. Pt agrees to PT. Pt. states he will be going to live with children and there will not be any steps there Pain Location: No Pain Reported Mental Status Patient Orientation: Person, Place, Time, Situation, Normal For Age Attachments: Other-See Comments (mask while out of room) Transfers SCALE: Activities may be completed with or without assistive devices. 8-Ecrchhldsn-vpkgxeg completes the activity by him/herself with no assistance from a helper. 5-Set-up or Clean-up Assistance-helper sets up or cleans up; patient completes activity. [place] assists only prior to or following the activity. 4-Supervision or Touching Assistance-helper provides verbal cues and/or touching/steadying and/or contact guard assistance as patient completes activity. Assistance may be provided throughout the activity or intermittently. 3-Partial/Moderate Assistance-helper does LESS THAN HALF the effort. Joaquin lifts, holds or supports trunk or limbs, but provides less than half the effort. 2-Substantial/Maximal Assistance-helper does MORE THAN HALF the effort. Joaquin lifts or holds trunk or limbs and provides more than half the effort. 9-Rkytqmfhf-aunkwx does ALL the effort. Patient does none of the effort to complete the activity. Or, the assistance of 2 or more helpers is required for the patient to complete the activity. If activity was not attempted, code reason: 7-Patient Refused. 9-Not Applicable-not attempted and the patient did not perform the activity before the current illness, exacerbation or injury. 10-Not Attempted due to Environmental Limitations-(lack of equipment, weather restraints, etc.). 88-Not Attempted due to Medical Conditions or Safety Concerns. Sit to Stand (QC): 5 Toilet Transfer (QC): 5 Weight Bearing Full Weight Bearing Full Weight Bearing Gait Training Does the Patient Walk?: Yes Distance: 85ftx2 Walk 10 feet (QC): 5 Walk 50 ft with 2 Turns(QC): 4 Gait Persons Needed: 1 Gait Assistive Device: FWW flexed over FWW, heavy wt bearing on FWW Stair Training Stair Training: Handrails/: 2 handrails #of Steps: 4 1 Step (curb) (QC): 5 4 Steps (QC): 4 Stairs: Pattern: Reciprocal Pt asc stairs reciprocally and desc stairs step to with instruction throughout for safety and sequence Exercises Seated Therapy Exercises: Ankle pumps, Sit to stand, Long arc quads, Hip flexion, Hamstring Curls Seated Reps: 15 NuStep Minutes: 15 NuStep Workload: 7 Treatments Pt TF to BR upon arrival w/ assistance from nursing pt had slight LOB but used handrail to right himself. Pt amb from room to therapy gym. Pt performed seated exs in therapy gym and then asc and desc stairs then TF to nustep. Pt requested workload to be moved to 7 from 6 at three minutes. Pt needed rest break and drink of water after doing nustep. After rest break pt amb back to room and ASSEMBLER FOR [employer]ACHINE performs MMT. Pt in recliner and call light in hand and all needs met. Assessment Current Status: Good Progress Pt increased time and load on nustep but towards the end of the 15m on the nustep pt seemed to fatigue and was utilizing UE to compensate. Performed MMT on pt BLE hip flexors, knee ext, and dorsiflexion and pt graded 4+ to4/5 on all. Pt had a slight LOB on toilet TF and used handrail to help regain balance. Pt responded well to Rx as strength and endurance continue to improve. Pt still requires skilled verbal cues about staying within FWW when turning and to reach back and back legs all the way to chair before sitting. PT Short Term Goals Short Term Goals Time Frame: Aug 22, 2020 Roll Left & Right: 4 (SBA) Sit to lyin (SBA) Lying to sitting on side of be: 4 (SBA) Sit to stand: 4 (SBA) Chair/ycx-rf-qyduj transfer: 4 (SBA) Toilet transfer: 4 (SBA) Car transfer: 4 (SBA) Walk 10 feet: 4 (CGA) Walk 50 feet with two turns: 4 (CGA) Walk 150 feet: 4 (CGA) Walking 10ft on uneven surface: 3 (min) 1 step (curb): 3 (min) Does pt use a wc or scooter: Yes Wheel 50ft w/2 turns: 4 (SBA) Wheel 150 feet: 4 (SBA) Type: Manual PT Athletics Director Goals Athletics Director Goals PT Athletics Director Goals Time Frame: Sep 05, 2020 Roll Left & Right (QC): 5 Sit to Lying (QC): 5 Lying-Sitting on Side/Bed(QC): 5 Sit to Stand (QC): 5 Chair/Xju-lz-Pdaow Xfer(QC): 5 Toilet Transfer (QC): 5 Car Transfer (QC): 5 Does the Patient Walk: Yes Walk 10 feet (QC): 5 Walk 50ft with 2 Turns (QC): 5 Walk 150 ft (QC): 5 Walking 10ft on Uneven Surface: 5 1 Step (curb) (QC): 5 4 Steps (QC): 5 12 Steps (QC): 9 Picking up an Object (QC): 5 Does the Pt use WC or Scooter?: No Wheel 50 feet with 2 turns (QC: 5 Type: Manual Wheel 150 feet: 5 Type: Manual PT Plan Problem List Problem List: Activity Tolerance, Balance, Transfer Treatment/Plan Treatment Plan: Continue Plan of Care Treatment Plan: Bed Mobility, Education, Functional Activity Sallie, Functional Strength, Group Therapy, Gait, Safety, Therapeutic Exercise, Transfers Treatment Duration: Sep 05, 2020 Frequency: At least 5 of 7 days/Wk (IRF) Estimated Hrs Per Day: 1.5 hours per day Patient and/or Family Agrees t: Yes Safety Risks/Education Patient Education: Gait Training, Transfer Techniques, Correct Positioning, Safety Issues Teaching Recipient: Patient Teaching Methods: Demonstration, Discussion Response to Teaching: Verbalize Understanding, Return Demonstration Time/GCodes Time In: 900 Time Out: 1000 Total Billed Treatment Time: 60 Total Billed Treatment 1, FA 15m, EX x 3 45m WALTER PEREZ ASSEMBLER FOR [employer] OVER [employer]ACHINE Aug 27, 2020 09:59
--- NOTE | 2020-08-27 11:37 | Speech Therapy Daily Note ---
Speech Daily Progress Note Subjective Date Seen by Provider: Aug 27, 2020 Time Seen by Provider: 00:30 Pt was alert and pleasant. Pt was watching current events on TV. Objective Pt completed problem solving tasks related to daily needs at 100% with no cues. Assessment Assessment Current Status: Good Progress Treatment Plan Discontinue ST, Goals Met Speech Short Term Goals Short Term Goals Short Term Goals Pt will complete memory tasks related to daily needs at 80% or greater with minimal cues. Pt will complete safety awareness tasks related to daily needs at 80% or greater with minimal cues. Pt will complete problem solving tasks related to daily needs at 80% or greater with minimal cues. Speech Mcc Goals Medical Oncologist Goals Pt will improve cognitive communication abilities so that he can complete daily tasks with minimal assist. Speech-Plan Patient/Family Goals Patient/Family Goals: Patient will be returning to his home with strong family support. Treatment Plan Speech Therapy Treatment Plan: Discontinue ST, Goals Met Treatment Duration: Aug 29, 2020 Frequency: 4 times per week (Patient will receive skilled ST 4-5x per week) Estimated Hrs Per Day: .5 hour per day Rehab Potential: Fair Barriers to Learning: Medical status and age. Pt/Family Agrees to Plan: Yes Safety Risks/Education Teaching Recipient: Patient Teaching Methods: Demonstration, Discussion Response to Teaching: Verbalize Understanding Education Topics Provided: Safety and compensatory memory strategies Time Speech Therapy Time In: 11:30 Speech Therapy Time Out: 12:00 Total Billed Time: 30 Billed Treatment Time 1, SLTS No QUALITY CODES: EXPRESSION OF IDEAS/WANTS: 4 UNDERSTANDING VERBAL CONTENT: 4 BRIEF INTERVIEW MENTAL STATUS: YES REPETITION OF 3 WORDS: 3 TEMPORAL ORIENTATION: YEAR: CORRECT, MONTH: CORRECT: DAY: CORRECT RECALL: SOCK: YES WITH CUE, COLOR: YES WITH CUE, BED: YES WITH CUE MEMORY/RECALL ABILITY: SEASON, LOCATION OF ROOM, THAT HE IS IN THE [facility]OS[facility] Aug 27, 2020 11:37
--- NOTE | 2020-08-27 11:48 | Occupational Ther Daily Note ---
OT Current Status-Daily Note Subjective No pain reported. Pt. is tearful about spouse's recent passing. Mental Status/Objective Patient Orientation: Person, Place ADL-Treatment Therapy Code Descriptions/Definitions Functional [place] Measure: 0=Not Assessed/NA 4=Minimal Assistance 1=Total Assistance 5=Supervision or Setup 2=Maximal Assistance 6=Modified [place] 3=Moderate Assistance 7=Complete IndependenceSCALE: Activities may be completed with or without assistive devices. 6-Jzethfvxon-egneuqy completes the activity by him/herself with no assistance from a helper. 5-Set-up or Clean-up Assistance-helper sets up or cleans up; patient completes activity. [place] assists only prior to or following the activity. 4-Supervision or Touching Assistance-helper provides verbal cues and/or touching/steadying and/or contact guard assistance as patient completes activity. Assistance may be provided throughout the activity or intermittently. 3-Partial/Moderate Assistance-helper does LESS THAN HALF the effort. [place] lifts, holds or supports trunk or limbs, but provides less than half the effort. 2-Substantial/Maximal Assistance-helper does MORE THAN HALF the effort. [place] lifts or holds trunk or limbs and provides more than half the effort. 6-Wclbclckg-qwklzn does ALL the effort. Patient does none of the effort to complete the activity. Or, the assistance of 2 or more helpers is required for the patient to complete the activity. If activity was not attempted, code reason: 7-Patient Refused. 9-Not Applicable-not attempted and the patient did not perform the activity before the current illness, exacerbation or injury. 10-Not Attempted due to Environmental Limitations-(lack of equipment, weather restraints, etc.). 88-Not Attempted due to Medical Conditions or Safety Concerns. Eating (QC): 6 Upper Body Dressing (QC): 4 (SBA) Lower Body Dressing (QC): 2 On/Off Footwear: 2 Toileting Hygiene (QC): 3 (Min assist in stance to don shorts over hips.) Toilet Transfer (QC): 3 (Min assist) Education OT Patient Education: Correct positioning, Modified ADL techniques, Progress toward Goal/Update tx plan, Purpose of tx/functional activities, Reviewed precautions, Rehab process, Transfer techniques Teaching Recipient: Patient Teaching Methods: Demonstration, Discussion Response to Teaching: Verbalize Understanding, Return Demonstration, Reinforcement Needed OT Short Term Goals Short Term Goals Time Frame: Aug 22, 2020 Eatin Oral hygiene: 4 Toileting hygiene: 3 Shower/bathe self: 3 Upper body dressin Lower body dressin Putting on/taking off footwear: 3 (With AE) OT General Merchandise Manager Goals Fdc Goals Time Frame: Sep 05, 2020 Eating (QC): 6 Oral Hygiene (QC): 6 Toileting Hygiene (QC): 6 Shower/Bathe Self (QC): 4 Upper Body Dressing (QC): 6 Lower Body Dressing (QC): 4 On/Off Footwear (QC): 4 Additional Goals: 1-Demonstrate ADL Tasks, 2-Verbalize Understanding, 3- ImproveStrength/Sallie 1=Demonstrate adherence to instructed precautions during ADL tasks. 2=Patient will verbalize/demonstrate understanding of assistive devices/modifications for ADL. 3=Patient will improve strength/tolerance for activity to enable patient to perform ADL's. OT Education/Plan Problem List/Assessment Assessment: Decreased Activ Tolerance, Impaired I ADL's, Impaired Self-Care Skills Discharge Recommendations Plan/Recommendations: Continue POC Treatment Plan/Plan of Care Treatment,Training & Education: Yes Patient would benefit from OT for education, treatment and training to promote independence in ADL's, mobility, safety and/or upper extremity function for ADL's. Plan of Care: ADL Retraining, Functional Mobility, Group Exercise/Act as Ind, UE Funct Exercise/Act Treatment Duration: Sep 05, 2020 Frequency: At least 5 of 7 days/Wk (IRF) Estimated Hrs Per Day: 1.5 hours per day Agreement: Yes Rehab Potential: Fair Time/GCodes Start Time: 10:30 Stop Time: 11:30 Total Time Billed (hr/min): 60 Billed Treatment Time 1, ADL x 4 TASH PASCUAL OT Aug 27, 2020 11:48
[2020-08-27] MEDS: HYDROXYCHLOROQUINE 200 MG (PLAQUENIL) TAB PO SCH (11:51)
--- NOTE | 2020-08-27 14:28 | Occupational Ther Daily Note ---
OT Current Status-Daily Note Subjective No pain reported. Appearance Pt. up in chair. Agrees to work with OT. Mental Status/Objective Patient Orientation: Person, Place, Time, Situation ADL-Treatment Therapy Code Descriptions/Definitions Functional [place] Measure: 0=Not Assessed/NA 4=Minimal Assistance 1=Total Assistance 5=Supervision or Setup 2=Maximal Assistance 6=Modified [place] 3=Moderate Assistance 7=Complete IndependenceSCALE: Activities may be completed with or without assistive devices. 0-Pxbuwvyxyp-dpnzzbv completes the activity by him/herself with no assistance from a helper. 5-Set-up or Clean-up Assistance-helper sets up or cleans up; patient completes activity. [place] assists only prior to or following the activity. 4-Supervision or Touching Assistance-helper provides verbal cues and/or touching/steadying and/or contact guard assistance as patient completes activity. Assistance may be provided throughout the activity or intermittently. 3-Partial/Moderate Assistance-helper does LESS THAN HALF the effort. [place] lifts, holds or supports trunk or limbs, but provides less than half the effort. 2-Substantial/Maximal Assistance-helper does MORE THAN HALF the effort. [place] lifts or holds trunk or limbs and provides more than half the effort. 6-Senhjqnvj-upxljx does ALL the effort. Patient does none of the effort to complete the activity. Or, the assistance of 2 or more helpers is required for the patient to complete the activity. If activity was not attempted, code reason: 7-Patient Refused. 9-Not Applicable-not attempted and the patient did not perform the activity before the current illness, exacerbation or injury. 10-Not Attempted due to Environmental Limitations-(lack of equipment, weather restraints, etc.). 88-Not Attempted due to Medical Conditions or Safety Concerns. Other Treatment Pt. agrees to complete bilateral UE exercises. Pt. completes 20 bilateral hand squeezes with pink therapy sponge. He then completes 3 bilateral UE exercises with red theraband x 15 reps each in all planes for continued strengthening. Pt. encouraged to do exercises within his available range. Tolerated well. All needs met up in chair. Education OT Patient Education: Correct positioning, Exercise program, Progress toward Goal/Update tx plan, Purpose of tx/functional activities, Reviewed precautions, Rehab process Teaching Recipient: Patient Teaching Methods: Demonstration, Discussion Response to Teaching: Verbalize Understanding, Return Demonstration OT Short Term Goals Short Term Goals Time Frame: Aug 22, 2020 Eatin Oral hygiene: 4 Toileting hygiene: 3 Shower/bathe self: 3 Upper body dressin Lower body dressin Putting on/taking off footwear: 3 (With AE) OT Care Home Goals Care Home Goals Time Frame: Sep 05, 2020 Eating (QC): 6 Oral Hygiene (QC): 6 Toileting Hygiene (QC): 6 Shower/Bathe Self (QC): 4 Upper Body Dressing (QC): 6 Lower Body Dressing (QC): 4 On/Off Footwear (QC): 4 Additional Goals: 1-Demonstrate ADL Tasks, 2-Verbalize Understanding, 3- ImproveStrength/Sallie 1=Demonstrate adherence to instructed precautions during ADL tasks. 2=Patient will verbalize/demonstrate understanding of assistive devices/modifications for ADL. 3=Patient will improve strength/tolerance for activity to enable patient to perform ADL's. OT Education/Plan Problem List/Assessment Assessment: Decreased Activ Tolerance Discharge Recommendations Plan/Recommendations: Continue POC Treatment Plan/Plan of Care Treatment,Training & Education: Yes Patient would benefit from OT for education, treatment and training to promote independence in ADL's, mobility, safety and/or upper extremity function for ADL's. Plan of Care: ADL Retraining, Functional Mobility, Group Exercise/Act as Ind, UE Funct Exercise/Act Treatment Duration: Sep 05, 2020 Frequency: At least 5 of 7 days/Wk (IRF) Estimated Hrs Per Day: 1.5 hours per day Agreement: Yes Rehab Potential: Fair Time/GCodes Start Time: 13:00 Stop Time: 13:15 Total Time Billed (hr/min): 15 Billed Treatment Time 1, Ex TASH PASCUAL OT Aug 27, 2020 14:28
--- NOTE | 2020-08-27 14:49 | Physical Therapy Daily Note ---
PT Daily Note-Current Subjective Pt. asks to walk to bathroom , requires SBA, to sit but mod assist for sit to stand from std height toilet Pain Location: No Pain Reported Mental Status Patient Orientation: Normal For Age Attachments: Other-See Comments Transfers SCALE: Activities may be completed with or without assistive devices. 1-Xlflsdvbns-fggoqah completes the activity by him/herself with no assistance from a helper. 5-Set-up or Clean-up Assistance-helper sets up or cleans up; patient completes activity. [place] assists only prior to or following the activity. 4-Supervision or Touching Assistance-helper provides verbal cues and/or touching/steadying and/or contact guard assistance as patient completes act ivity. Assistance may be provided throughout the activity or intermittently. 3-Partial/Moderate Assistance-helper does LESS THAN HALF the effort. [place] lifts, holds or supports trunk or limbs, but provides less than half the effort. 2-Substantial/Maximal Assistance-helper does MORE THAN HALF the effort. [place] lifts or holds trunk or limbs and provides more than half the effort. 1-Tagnwklxp-nlxcpi does ALL the effort. Patient does none of the effort to complete the activity. Or, the assistance of 2 or more helpers is required for the patient to complete the activity. If activity was not attempted, code reason: 7-Patient Refused. 9-Not Applicable-not attempted and the patient did not perform the activity before the current illness, exacerbation or injury. 10-Not Attempted due to Environmental Limitations-(lack of equipment, weather restraints, etc.). 88-Not Attempted due to Medical Conditions or Safety Concerns. sit to stand min to mod, Weight Bearing Full Weight Bearing Full Weight Bearing Gait Training Does the Patient Walk?: Yes Gait Assistive Device: FWW 20ft x 2 small space CGA requiring some instruction for his position in FWW as pt tends to stay far away from FWW and turn with feet ending up outside FWW Exercises Seated Therapy Exercises: Ankle pumps, Sit to stand, Long arc quads, Hip flexion Seated Reps: 10 Treatments pts SERENA wraps were rewrapped bilat for better , smoother coverage Assessment Current Status: Good Progress shows progress in all phases of functional activity PT Short Term Goals Short Term Goals Time Frame: Aug 22, 2020 Roll Left & Right: 4 (SBA) Sit to lyin (SBA) Lying to sitting on side of be: 4 (SBA) Sit to stand: 4 (SBA) Chair/hzf-bi-ewjta transfer: 4 (SBA) Toilet transfer: 4 (SBA) Car transfer: 4 (SBA) Walk 10 feet: 4 (CGA) Walk 50 feet with two turns: 4 (CGA) Walk 150 feet: 4 (CGA) Walking 10ft on uneven surface: 3 (min) 1 step (curb): 3 (min) Does pt use a wc or scooter: Yes Wheel 50ft w/2 turns: 4 (SBA) Wheel 150 feet: 4 (SBA) Type: Manual PT Branch Examiner Goals Group Home Goals PT Group Home Goals Time Frame: Sep 05, 2020 Roll Left & Right (QC): 5 Sit to Lying (QC): 5 Lying-Sitting on Side/Bed(QC): 5 Sit to Stand (QC): 5 Chair/Qsa-al-Nqgjs Xfer(QC): 5 Toilet Transfer (QC): 5 Car Transfer (QC): 5 Does the Patient Walk: Yes Walk 10 feet (QC): 5 Walk 50ft with 2 Turns (QC): 5 Walk 150 ft (QC): 5 Walking 10ft on Uneven Surface: 5 1 Step (curb) (QC): 5 4 Steps (QC): 5 12 Steps (QC): 9 Picking up an Object (QC): 5 Does the Pt use WC or Scooter?: No Wheel 50 feet with 2 turns (QC: 5 Type: Manual Wheel 150 feet: 5 Type: Manual PT Plan Treatment/Plan Treatment Plan: Continue Plan of Care Treatment Plan: Bed Mobility, Education, Functional Activity Sallie, Functional Strength, Group Therapy, Gait, Safety, Therapeutic Exercise, Transfers Treatment Duration: Sep 05, 2020 Frequency: At least 5 of 7 days/Wk (IRF) Estimated Hrs Per Day: 1.5 hours per day Patient and/or Family Agrees t: Yes Safety Risks/Education Patient Education: Gait Training, Transfer Techniques, Correct Positioning, Disease Process, Safety Issues Teaching Recipient: Patient Teaching Methods: Demonstration, Discussion Response to Teaching: Verbalize Understanding, Return Demonstration, Reinf orcement Needed Time/GCodes Time In: 1350 Time Out: 1410 Total Billed Treatment Time: 20 Total Billed Treatment 1,FA20m WALTER PEREZ SUPERVISOR ELECTRIC MOTOR TESTING Aug 27, 2020 14:49
[2020-08-27] MEDS: TAMSULOSIN 0.4 MG (FLOMAX) CAP PO SCH (17:28)
[2020-08-27 20:35] VITALS: BP 144/64
[2020-08-27] MEDS: OLANZapine 2.5 MG (ZyPREXA) TAB PO SCH (20:38)
[2020-08-27] MEDS: LATANOPROST 0.005% (XALATAN) OPHTH SOLN 2.5 ML OU SCH (20:38)
[2020-08-27] MEDS: IBUPROFEN TABLET 200 MG TAB PO PRN (20:39)
[2020-08-27] MEDS: MIRTAZAPINE 15 MG (REMERON) TAB PO SCH (20:39)
[2020-08-28] MEDS: VENlafaxine XR 75 MG (EFFEXOR XR) CAP PO SCH (06:57)
[2020-08-28] MEDS: KCL 20 MEQ TAB (K-DUR) PO SCH (06:57)
[2020-08-28] MEDS: CATHETER FLUSH 10 ML SYR IV SCH ×3 (06:57→22:17)
[2020-08-28 08:00] VITALS: BP 146/65
--- NOTE | 2020-08-28 08:53 | PM&R Progress Note ---
Subjective HPI/CC On Admission Date Seen by Provider: Aug 28, 2020 Time Seen by Provider: 09:00 Subjective/Events-last exam 08/28/20: Pt doing really well DC planned for tomorrow to [facility] No issues reported 08/27/20: Pt doing a lot better DC Thursday to a snf to get house ready for son to live with him Bowels moved yesterday Hgb 9.9 Will DC telemetry 08/26/20: Patient doing well Dizziness is still an issues he reports Patient appears very chronically ill Reassured patient and daughter Checked meds and labs 08/25/20: Patient doing well JERED's and SERENA wraps placed for edema No dyspnea 08/24/20: Doing well Spirits doing well since the of his yesterday Venofer infusion today BM ok 08/23/20: Went to a of his Doing well Ambulating well with one person Bowels moved yesterday 08/22/20: Pt doing a lot better Having a visitation today at five Transfers are okay with the wheelchair Bowels moved on the 08/20 IV iron infusions maintained Overall getting stronger 08/21/20: Pt doing pretty well Family training in order to bring him to the of his this week Overall doing pretty well 08/20/20: Pt doing pretty well Dr. Doe evaluated him today Hgb 8.7 Potassium 3.4 He fell last night in the bathroom and daughters were aware of that He may very well require a snf for 24/7 supervision 08/19/20: Patient doing well since last evening Tely reveals AF now Dr De Paz changed pyridium to prn Incontinence last night Ate bfast Venofer yesterday 08/18/20: Patient back and forth between his 's room upstairs since she is dying Slept well last night NSR on Tely Catheter DC Dr De Paz consulted Venofer will be given due to iron def 08/17/20: Patient became confused at midnight Xanax 0.25mg caused a bit of oversedation Patient converted to NSR on Tely HR 50's SLUMS 17 terminal upstairs 08/16/20: Patient doing well Hgb 8.9 Iron level pending Urinary frequency noted No retention noted Remeron started for insomnia Had confusion at 1800 so started antipsychotics and placed dc SLUMS 17 Without his to compensate for him, since she is admitted acute, it is clear how declined he really is Review of Systems General: Fatigue Objective Exam Vital Signs Vital Signs Date Time Temp Pulse Resp B/P (MAP) Pulse Ox O2 Delivery O2 Flow Rate FiO2 08/28/20 21:00 Room Air 08/28/20 20:00 36.8 71 16 144/82 (102) 94 Capillary Refill : General Appearance: No Apparent Distress, WD/WN, Chronically ill, Obese HEENT: PERRL/EOMI, Normal ENT Inspection, Pharynx Normal Neck: Full Range of Motion, Normal Inspection, Non Tender, Supple, Carotid Bruit Respiratory: Chest Non Tender, Lungs Clear, No Accessory Muscle Use, No Respiratory Distress, Decreased Breath Sounds Cardiovascular: Regular Rate, Rhythm, No Edema, No Gallop, No JVD, No Murmur, Normal Peripheral Pulses Gastrointestinal: Normal Bowel Sounds, No Organomegaly, No Pulsatile Mass, Non Tender, Soft Back: Normal Inspection, No CVA Tenderness, No Vertebral Tenderness Extremity: Normal Capillary Refill, Normal Inspection, Normal Range of Motion, Non Tender, No Calf Tenderness, No Pedal Edema Neurologic/Psychiatric: Alert, Oriented x3, Abnormal Gait, Depressed Affect, Motor Weakness (generalized) Skin: Normal Color, Warm/Dry Lymphatic: No Adenopathy Results/Procedures Lab Patient resulted labs reviewed. FIM Transfers Therapy Code Descriptions/Definitions Functional [place] Measure: 0=Not Assessed/NA 4=Minimal Assistance 1=Total Assistance 5=Supervision or Setup 2=Maximal Assistance 6=Modified [place] 3=Moderate Assistance 7=Complete IndependenceSCALE: Activities may be completed with or without assistive devices. 0-Gnorjnckok-mfbzlsd completes the activity by him/herself with no assistance from a helper. 5-Set-up or Clean-up Assistance-helper sets up or cleans up; patient completes activity. [place] assists only prior to or following the activity. 4-Supervision or Touching Assistance-helper provides verbal cues and/or touc fausto/steadying and/or contact guard assistance as patient completes activity. Assistance may be provided throughout the activity or intermittently. 3-Partial/Moderate Assistance-helper does LESS THAN HALF the effort. [place] lifts, holds or supports trunk or limbs, but provides less than half the effort. 2-Substantial/Maximal Assistance-helper does MORE THAN HALF the effort. [place] lifts or holds trunk or limbs and provides more than half the effort. 6-Xggmnzlvu-tlzanh does ALL the effort. Patient does none of the effort to complete the activity. Or, the assistance of 2 or more helpers is required for the patient to complete the activity. If activity was not attempted, code reason: 7-Patient Refused. 9-Not Applicable-not attempted and the patient did not perform the activity before the current illness, exacerbation or injury. 10-Not Attempted due to Environmental Limitations-(lack of equipment, weather restraints, etc.). 88-Not Attempted due to Medical Conditions or Safety Concerns. Roll Left to Right (QC): 4 Sit to Lying (QC): 5 Sit to Stand (QC): 5 Chair/Bll-uc-Syejf Xfer(QC): 5 Car Transfer (QC): 3 (Patient needs assistance with legs with getting in/out of vehicle.) Gait Training Does the Patient Walk?: Yes Distance: 85ftx2 Walk 10 feet (QC): 5 Walk 50 ft with 2 Turns(QC): 4 Walk 150 ft (QC): 4 Walking 10ft/uneven surface-QC: 88 Gait Persons Needed: 1 Gait Assistive Device: FWW Wheelchair Training Does the Pt Use a Wheelchair?: Yes Distance: 50' Wheel 50 ft with 2 turns (QC): 4 Wheel 150 ft (QC): 88 Type of Wheelchair: Manual Stair Training Stair Training: Handrails/: 2 handrails #of Steps: 4 1 Step (curb) (QC): 5 4 Steps (QC): 4 12 Steps (QC): 88 Stairs: Pattern: Reciprocal Balance Picking up an Object (QC): 88 ADL-Treatment Eating (QC): 6 Oral Hygiene (QC): 7 Bathing Location: L Arm, R Arm, L Upper Leg, R Upper Leg, Chest, Abdomen, P erineal Area Shower/Bathe Self (QC): 3 (min A (bottom care only) pt denies washing feet.) Upper Body Dressing (QC): 4 (SBA) Lower Body Dressing (QC): 2 On/Off Footwear (QC): 2 Toileting Hygiene (QC): 3 (Min assist in stance to don shorts over hips.) Toilet Transfer (QC): 3 (Min assist) Assessment/Plan Assessment and Plan Assess & Plan/Chief Complaint Assessment: Ventricular arrhythmia A fib new onset OAC new HTN Lupus Obesity Urinary retention since dc DC Pneumonitis CRI Dementia SLUMS 17 Sundowning Anemia iron def Plan: Monitor closely Cardiology appreciated Monitor creat Urinary retention management 08/16/20: Cd cath Monitor closely Anti-psychotics 08/17/20: Monitor closely Cardiology appreciated 08/18/20: Venofer iron infusion Support through 's dying process 08/19/20: Monitor incontinence AF on Tely 08/20/20: Monitor closely Venofer 08/21/20: Venofer Tely Monitor closely 08/22/20: Monitor BP and HR Fall risk 08/23/20: Monitor BP Telemetry 08/24/20: Monitor Tely Improved status Son will live with patient at DC 08/25/20: Monitor edema JERED/SERENA wraps Monitor tely 08/26/20: Labs in am DC this week No pain reported 08/27/20: Labs good DC tely 08/28/20: DC tomorrow to [facility] (1) Ventricular arrhythmia (2) Pneumonitis (3) Knee pain, right (4) Atrial fibrillation (5) Falls frequently (6) Urinary retention (7) Lupus Status: Chronic (8) Hypertension Status: Acute (9) Leg edema Status: Acute (10) Renal insufficiency Status: Acute ELDA LUNA DO Aug 28, 2020 08:53
--- NOTE | 2020-08-28 09:11 | Speech Therapy Daily Note ---
Speech Daily Progress Note Subjective Date Seen by Provider: Aug 28, 2020 Time Seen by Provider: 00:30 Pt was alert and pleasant. Pt reminisced about his life and his marriage. Pt reports being sad and a little lost without his around. Objective Pt completed long and short term memory tasks at 100% with no cueing. Assessment Assessment Current Status: Good Progress Treatment Plan Discontinue ST, Goals Met Speech Short Term Goals Short Term Goals Short Term Goals Pt will complete memory tasks related to daily needs at 80% or greater with minimal cues. Pt will complete safety awareness tasks related to daily needs at 80% or greater with minimal cues. Pt will complete problem solving tasks related to daily needs at 80% or greater with minimal cues. Speech Nuclear Spectroscopist Goals Nuclear Spectroscopist Goals Pt will improve cognitive communication abilities so that he can complete daily tasks with minimal assist. Speech-Plan Patient/Family Goals Patient/Family Goals: Pt plans to go to a fpc facility upon d/c from ARU where he will work on regaining his balance. Treatment Plan Speech Therapy Treatment Plan: Discontinue ST, Goals Met Treatment Duration: Aug 29, 2020 Frequency: 4 times per week (Patient will receive skilled ST 4-5x per week) Estimated Hrs Per Day: .5 hour per day Rehab Potential: Fair Barriers to Learning: Medical status and age. Pt/Family Agrees to Plan: Yes Safety Risks/Education Teaching Recipient: Patient Teaching Methods: Discussion Response to Teaching: Verbalize Understanding Education Topics Provided: Safety and cognitive tasks Time Speech Therapy Time In: 08:30 Speech Therapy Time Out: 09:00 Total Billed Time: 30 Billed Treatment Time 1, SLSUSANA Moncada Aug 28, 2020 09:11
--- NOTE | 2020-08-28 09:22 | Therapy Team Discharge Summary ---
Therapy Discharge Summary Discharge Recommendations Date of Discharge Occupational Therapy Decreased Activ Tolerance Speech-Language Pathology Pt was admitted to the ARU due to falls and debility. Pt received services for safety and cognitive communication tasks. Pt has made significant progress from baseline in all areas listed. During ARU placement, pt's . Pt has reported that this has taken an emotional strain on him. Pt is discharging to a long-term facility for a while to reportedly regain his balance and will then move closer to one of his daughters. PT Sanitation Director Goals Longterm Goals PT Longterm Goals Time Frame: Sep 05, 2020 Roll Left to Right (QC): 5 Sit to Lying (QC): 5 Lying-Sitting on Side/Bed(QC): 5 Sit to Stand (QC): 5 Chair/Xdq-lz-Xhjcy Xfer(QC): 5 Car Transfer (QC): 5 Does the Patient Walk: Yes Walk 10 feet (QC): 5 Walk 10ft-Uneven Surface(QC): 5 Walk 50ft with 2 Turns (QC): 5 Walk 150 ft (QC): 5 Does the Pt use WC or Scooter?: No Wheel 50 feet with 2 turns (QC: 5 1 Step (curb) (QC): 5 4 Steps (QC): 5 12 Steps (QC): 9 Picking up an Object (QC): 5 OT Longterm Goals Sanitation Director Goals Time Frame: Sep 05, 2020 Eating (FIM): 6 Eating (QC): 6 Oral Hygiene (QC): 6 Shower/Bathe Self (QC): 4 Upper Body Dressing (QC): 6 Lower Body Dressing (QC): 4 On/Off Footwear (QC): 4 Toileting(FIM): 6 Toileting Hygiene (QC): 6 Toilet/Commode Transfer (QC): 5 Additional Goals: 1-Demonstrate ADL Tasks, 2-Verbalize Understanding, 3- ImproveStrength/Sallie 1=Demonstrate adherence to instructed precautions during ADL tasks. 2=Patient will verbalize/demonstrate understanding of assistive devices/mo difications for ADL. 3=Patient will improve strength/tolerance for activity to enable patient to perform ADL's. Speech Sanitation Director Goals Sanitation Director Goals Pt will improve cognitive communication abilities so that he can complete daily tasks with minimal assist. SUSANA CAN Aug 28, 2020 09:22
[2020-08-28] MEDS: IRON SUCROSE 200 MG/10 ML (VENOFER) VIAL IV SCH (09:37)
[2020-08-28] MEDS: AMIODARONE 200 MG (CORDARONE) TAB PO SCH ×2 (09:38→20:46)
[2020-08-28] MEDS: DOCUSATE SODIUM 100 MG (COLACE) CAP PO SCH ×2 (09:38→20:46)
[2020-08-28] MEDS: SENNA W/DOCUSATE (SENOKOT S) TABLET PO SCH ×2 (09:38→21:00)
[2020-08-28] MEDS: BUMETANIDE 1 MG (BUMEX) TAB PO SCH (09:38)
[2020-08-28] MEDS: polyethylene glycoL POWDER 17 GM (MIRALAX) PACK PO SCH ×2 (09:39→21:00)
[2020-08-28] MEDS: APIXABAN 5 MG (ELIQUIS) TABLET PO SCH ×2 (09:39→20:45)
--- NOTE | 2020-08-28 09:44 | Physical Therapy Daily Note ---
PT Daily Note-Current Subjective Pt states he feels good today and that today was a good workout denies being SOB. Pt agrees to PT. Pain Location: No Pain Reported Mental Status Patient Orientation: Person, Place, Time, Situation Attachments: Other-See Comments (mask while out of room) Transfers SCALE: Activities may be completed with or without assistive devices. 8-Lrijrrxybb-xptduug completes the activity by him/herself with no assistance from a helper. 5-Set-up or Clean-up Assistance-helper sets up or cleans up; patient completes activity. [place] assists only prior to or following the activity. 4-Supervision or Touching Assistance-helper provides verbal cues and/or touching/steadying and/or contact guard assistance as patient completes activity. Assistance may be provided throughout the activity or intermittently. 3-Partial/Moderate Assistance-helper does LESS THAN HALF the effort. [place] lifts, holds or supports trunk or limbs, but provides less than half the effort. 2-Substantial/Maximal Assistance-helper does MORE THAN HALF the effort. [place] lifts or holds trunk or limbs and provides more than half the effort. 5-Xauddqlzh-ymaskk does ALL the effort. Patient does none of the effort to complete the activity. Or, the assistance of 2 or more helpers is required for the patient to complete the activity. If activity was not attempted, code reason: 7-Patient Refused. 9-Not Applicable-not attempted and the patient did not perform the activity before the current illness, exacerbation or injury. 10-Not Attempted due to Environmental Limitations-(lack of equipment, weather restraints, etc.). 88-Not Attempted due to Medical Conditions or Safety Concerns. Roll Left & Right (QC): 5 Sit to Lying (QC): 5 Lying to Sitting/Side of Bed(Q: 5 Sit to Stand (QC): 5 Chair/Ezt-uh-Ctaey Xfer(QC): 5 Toilet Transfer (QC): 5 (pt uses rails to assist) Car Transfer (QC): 5 Pt uses bedrails to assist w/ bed mobility Weight Bearing Full Weight Bearing Full Weight Bearing Gait Training Does the Patient Walk?: Yes Distance: 275' x 2 Walk 10 feet (QC): 5 Walk 50 ft with 2 Turns(QC): 5 Walk 150 ft (QC): 5 Walking 10ft/uneven surface-QC: 5 Gait Persons Needed: 1 Gait Assistive Device: FWW Stair Training Stair Training: Handrails/: 2 handrails #of Steps: 4 1 Step (curb) (QC): 5 4 Steps (QC): 5 Stairs: Pattern: Reciprocal Exercises Seated Therapy Exercises: Ankle pumps, Long arc quads Seated Reps: 12 Treatments Pt in recliner upon arrival and PT assists pt to BR. Then pt performs bed mobility in room. Pt amb to therapy gym and performs QC's of stairs, uneven surface, and curb. Then pt amb down doherty to windows and needs a rest break. After rest break pt picks object up from floor w/ grabber and amb back to room. TF to recliner and performs seated exs and then therapy departs call light in hand all needs met. Assessment Current Status: Good Progress Pt performed well w/ all QC's After picking up object from floor pt amb w/ shortened step length possibly due to tightness but loosened up after time. Pt amb 275' x 2 which is the farthest he has walked and did not demonstrate SOB today for the first time. When pt is fatigued or in a hurry he doesn't want to b ack B legs back to chair so LEATHER TANNER provided cues about not being in a hurry. Pt balance has improved as he was able to stand w/o assist of FWW and pull pants up independently. PT Short Term Goals Short Term Goals Time Frame: Aug 22, 2020 Roll Left & Right: 4 (SBA) Sit to lyin (SBA) Lying to sitting on side of be: 4 (SBA) Sit to stand: 4 (SBA) Chair/cqz-uo-qdkdl transfer: 4 (SBA) Toilet transfer: 4 (SBA) Car transfer: 4 (SBA) Walk 10 feet: 4 (CGA) Walk 50 feet with two turns: 4 (CGA) Walk 150 feet: 4 (CGA) Walking 10ft on uneven surface: 3 (min) 1 step (curb): 3 (min) Does pt use a wc or scooter: Yes Wheel 50ft w/2 turns: 4 (SBA) Wheel 150 feet: 4 (SBA) Type: Manual PT Mine Deputy Goals Mine Deputy Goals PT Senior Care Goals Time Frame: Sep 05, 2020 Roll Left & Right (QC): 5 Sit to Lying (QC): 5 Lying-Sitting on Side/Bed(QC): 5 Sit to Stand (QC): 5 Chair/Aas-ko-Wazvu Xfer(QC): 5 Toilet Transfer (QC): 5 Car Transfer (QC): 5 Does the Patient Walk: Yes Walk 10 feet (QC): 5 Walk 50ft with 2 Turns (QC): 5 Walk 150 ft (QC): 5 Walking 10ft on Uneven Surface: 5 1 Step (curb) (QC): 5 4 Steps (QC): 5 12 Steps (QC): 9 Picking up an Object (QC): 5 Does the Pt use WC or Scooter?: No Wheel 50 feet with 2 turns (QC: 5 Type: Manual Wheel 150 feet: 5 Type: Manual PT Plan Problem List Problem List: Activity Tolerance, Balance Treatment/Plan Treatment Plan: Continue Plan of Care Treatment Plan: Bed Mobility, Education, Functional Activity Sallie, Functional Strength, Group Therapy, Gait, Safety, Therapeutic Exercise, Transfers Treatment Duration: Sep 05, 2020 Frequency: At least 5 of 7 days/Wk (IRF) Estimated Hrs Per Day: 1.5 hours per day Patient and/or Family Agrees t: Yes Safety Risks/Education Patient Education: Transfer Techniques Teaching Recipient: Patient Teaching Methods: Demonstration, Discussion Response to Teaching: Verbalize Understanding, Return Demonstration Time/GCodes Time In: 900 Time Out: 945 Total Billed Treatment Time: 45 Total Billed Treatment 1, FA x 2 (35m), GT (10m) GISELLE FLANAGAN LEATHER TANNER Aug 28, 2020 09:44
--- NOTE | 2020-08-28 12:02 | Progress Note - Cardiology ---
Cardiology SOAP Progress Note Subjective: Sitting up in recliner at the bedside No c/o CP, SOB or palpitations Feels wraps help LE swelling Objective: I&O/Vital Signs 08/28/20 08/28/20 08:00 09:00 Temp 35.6 Pulse 60 Resp 20 B/P (MAP) 146/65 (92) Pulse Ox 93 O2 Delivery Room Air Room Air 08/28/20 00:00 Intake Total 720 ml Balance 720 ml Weight (Pounds): 230 Weight (Calculated Kilograms): [id number] Constitutional: AAO x 3, well-developed, well-nourished Respiratory: No accessory muscle use, No respiratory distress; chest expansion is symmetric, chest is bilaterally symmetric, other (good air entry) Cardiovascular: regular rate-rhythm; No JVD; S1 and S2 Gastrointestional: No tender; soft, round, audible bowel sounds Extremities: other (mod bilat LE swelling) Neurologic/Psychiatric: grossly intact (moves all extremities) Skin: No rash on exposed areas, No ulcerations on exposed areas Results/Procedures: Labs Laboratory Tests 08/27/20 05:20 A/P: Assessment: Status post wide-complex tachycardia, multiple episodes, frequent PVCs, symptomatic. most probably paroxysmal atrial fibrillation with aberrant conduction, maintained on amiodarone, Eliquis Mild elevation in troponin level, cardiac catheterization was carried out on August 13, [address] Frost showing heavily calcified coronary system with mild to moderate disease nonobstructive disease Dizziness and lightheadedness, near syncope secondary to tachycardia - no further c/o Hypertension, controlled Echocardiogram by Dr. Frost showed normal LV size and function, EF 60%, moderate mitral regurgitation, mild tricuspid regurgitation. Left atrial dilatation 5.1 cm. Generalized weakness, orthostatic dizziness and lightheadedness, unsteady gait, receiving physical and occupational therapy Urinary tract infection, improved, managed by primary care team Plan: Continue current regimen Monitor lab F/U as out pt with Dr. Frost Possible d/c to [facility] tomorrow IVY RODRIGUEZ Aug 28, 2020 12:02
[2020-08-28] MEDS: HYDROXYCHLOROQUINE 200 MG (PLAQUENIL) TAB PO SCH (12:21)
--- NOTE | 2020-08-28 13:29 | Occupational Ther Daily Note ---
OT Current Status-Daily Note Subjective No pain reported. Appearance Pt. up in chair. Agrees to work with OT. Mental Status/Objective Patient Orientation: Person, Place, Time, Situation ADL-Treatment Therapy Code Descriptions/Definitions Functional [place] Measure: 0=Not Assessed/NA 4=Minimal Assistance 1=Total Assistance 5=Supervision or Setup 2=Maximal Assistance 6=Modified [place] 3=Moderate Assistance 7=Complete IndependenceSCALE: Activities may be completed with or without assistive devices. 1-Njyqqegvrt-ofcqhah completes the activity by him/herself with no assistance from a helper. 5-Set-up or Clean-up Assistance-helper sets up or cleans up; patient completes activity. [place] assists only prior to or following the activity. 4-Supervision or Touching Assistance-helper provides verbal cues and/or touching/steadying and/or contact guard assistance as patient completes activity. Assistance may be provided throughout the activity or intermittently. 3-Partial/Moderate Assistance-helper does LESS THAN HALF the effort. [place] lifts, holds or supports trunk or limbs, but provides less than half the effort. 2-Substantial/Maximal Assistance-helper does MORE THAN HALF the effort. [place] lifts or holds trunk or limbs and provides more than half the effort. 2-Cekzaseiu-tmfinb does ALL the effort. Patient does none of the effort to complete the activity. Or, the assistance of 2 or more helpers is required for the patient to complete the activity. If activity was not attempted, code reason: 7-Patient Refused. 9-Not Applicable-not attempted and the patient did not perform the activity before the current illness, exacerbation or injury. 10-Not Attempted due to Environmental Limitations-(lack of equipment, weather restraints, etc.). 88-Not Attempted due to Medical Conditions or Safety Concerns. Eating (QC): 6 Oral Hygiene (QC): 5 (Set up seated at sink to brush dentures and apply in mouth.) Shower/Bathe Self (QC): 4 (CGA in stance. Pt. was issued LH sponge. Able to bathe and dry LE.) Upper Body Dressing (QC): 5 (Set up) Lower Body Dressing (QC): 3 (Mod assist overall with AE. Pt. did better job overall applying brief and pants with dressing stick and global expansion sales director, but still required assistance. Pt. also requires assistance to don slip on shoes due to heel protective bandage on heel.) On/Off Footwear: 3 Toileting Hygiene (QC): 4 Toilet Transfer (QC): 4 Other Treatment After ADLs in shower, pt. agrees to ambulate to therapy gym. Pt. tolerates 13 minutes on arm bike at min resistance, with several brief rest breaks for continued overall strength. Ambulated back to room with walker, with cues needed to keep walker close. All needs met up in chair. Education OT Patient Education: Correct positioning, Exercise program, Modified ADL techniques, Progress toward Goal/Update tx plan, Purpose of tx/functional activities, Reviewed precautions, Rehab process, Transfer techniques Teaching Recipient: Patient Teaching Methods: Demonstration, Discussion Response to Teaching: Verbalize Understanding, Return Demonstration OT Short Term Goals Short Term Goals Time Frame: Aug 22, 2020 Eatin Oral hygiene: 4 Toileting hygiene: 3 Shower/bathe self: 3 Upper body dressin Lower body dressin Putting on/taking off footwear: 3 (With AE) OT Technical Assoc Goals Technical Assoc Goals Time Frame: Sep 05, 2020 Eating (QC): 6 Oral Hygiene (QC): 6 Toileting Hygiene (QC): 6 Shower/Bathe Self (QC): 4 Upper Body Dressing (QC): 6 Lower Body Dressing (QC): 4 On/Off Footwear (QC): 4 Additional Goals: 1-Demonstrate ADL Tasks, 2-Verbalize Understanding, 3- ImproveStrength/Sallie 1=Demonstrate adherence to instructed precautions during ADL tasks. 2=Patient will verbalize/demonstrate understanding of assistive devices/modifications for ADL. 3=Patient will improve strength/tolerance for activity to enable patient to perform ADL's. OT Education/Plan Problem List/Assessment Assessment: Decreased Activ Tolerance, Impaired I ADL's, Impaired Self-Care Skills Discharge Recommendations Plan/Recommendations: Continue POC Therapy Discharge Recommendati: Post Acute OT Equpiment Recommendations-D/C: Hip Kit Treatment Plan/Plan of Care Treatment,Training & Education: Yes Patient would benefit from OT for education, treatment and training to promote independence in ADL's, mobility, safety and/or upper extremity function for ADL's. Plan of Care: ADL Retraining, Functional Mobility, Group Exercise/Act as Ind, UE Funct Exercise/Act Treatment Duration: Sep 05, 2020 Frequency: At least 5 of 7 days/Wk (IRF) Estimated Hrs Per Day: 1.5 hours per day Agreement: Yes Rehab Potential: Fair Time/GCodes Start Time: 10:00 Stop Time: 11:15 Total Time Billed (hr/min): 75 Billed Treatment Time 1, ADL x 45minutes, Ex x 15minutes, FA x 15minutes TASH PASCUAL OT Aug 28, 2020 13:29
[2020-08-28] MEDS ORDERED: APIX5TAB PO (13:52)
[2020-08-28] MEDS ORDERED: AMIO200T6 PO (13:52)
--- NOTE | 2020-08-28 14:03 | Physical Therapy Daily Note ---
PT Daily Note-Current Subjective Pt sitting in recliner upon arrival. Pt agrees to PT. Pt declines needing to use BR. Pain Location: No Pain Reported Mental Status Patient Orientation: Person, Place, Time, Situation Transfers SCALE: Activities may be completed with or without assistive devices. 0-Gytfcznqsf-snoiosz completes the activity by him/herself with no assistance from a helper. 5-Set-up or Clean-up Assistance-helper sets up or cleans up; patient completes activity. [place] assists only prior to or following the activity. 4-Supervision or Touching Assistance-helper provides verbal cues and/or touch ing/steadying and/or contact guard assistance as patient completes activity. Assistance may be provided throughout the activity or intermittently. 3-Partial/Moderate Assistance-helper does LESS THAN HALF the effort. [place] lifts, holds or supports trunk or limbs, but provides less than half the effort. 2-Substantial/Maximal Assistance-helper does MORE THAN HALF the effort. [place] lifts or holds trunk or limbs and provides more than half the effort. 9-Bevinbqfm-uwedkd does ALL the effort. Patient does none of the effort to complete the activity. Or, the assistance of 2 or more helpers is required for the patient to complete the activity. If activity was not attempted, code reason: 7-Patient Refused. 9-Not Applicable-not attempted and the patient did not perform the activity before the current illness, exacerbation or injury. 10-Not Attempted due to Environmental Limitations-(lack of equipment, weather restraints, etc.). 88-Not Attempted due to Medical Conditions or Safety Concerns. Sit to Stand (QC): 5 Weight Bearing Full Weight Bearing Full Weight Bearing Gait Training Does the Patient Walk?: Yes Distance: 500' Walk 10 feet (QC): 5 Walk 50 ft with 2 Turns(QC): 5 Walk 150 ft (QC): 5 Gait Persons Needed: 1 Gait Assistive Device: FWW RB after ~250'. Wheelchair Training Does the Pt Use a Wheelchair?: No Exercises Seated Therapy Exercises: Ankle pumps, Long arc quads, Hip flexion, Glut set Seated Reps: 15 Treatments TF to keo, declines need for BR and amb. in hallway. Pt completes Seated EX then amb. in hallway. RB after ~250' then amb. back towards room. Pt again declines BR and returns to recliner to rest. INFECTIOUS DISEASES PHYSICIAN also reviews Supine Ex & issues written HEP for Supine & Seated Ex. Pt resting in recliner at end of tx with all needs met, call light in hand. Assessment Current Status: Good Progress Pt has improved with strength, activity tolerance and balance. PT Short Term Goals Short Term Goals Time Frame: Aug 22, 2020 Roll Left & Right: 4 (SBA) Sit to lyin (SBA) Lying to sitting on side of be: 4 (SBA) Sit to stand: 4 (SBA) Chair/lkh-kn-ibdyq transfer: 4 (SBA) Toilet transfer: 4 (SBA) Car transfer: 4 (SBA) Walk 10 feet: 4 (CGA) Walk 50 feet with two turns: 4 (CGA) Walk 150 feet: 4 (CGA) Walking 10ft on uneven surface: 3 (min) 1 step (curb): 3 (min) Does pt use a wc or scooter: Yes Wheel 50ft w/2 turns: 4 (SBA) Wheel 150 feet: 4 (SBA) Type: Manual PT Intermediate Goals Intermediate Goals PT Vice President For Instruction Goals Time Frame: Sep 05, 2020 Roll Left & Right (QC): 5 Sit to Lying (QC): 5 Lying-Sitting on Side/Bed(QC): 5 Sit to Stand (QC): 5 Chair/Rwu-km-Cvmhh Xfer(QC): 5 Toilet Transfer (QC): 5 Car Transfer (QC): 5 Does the Patient Walk: Yes Walk 10 feet (QC): 5 Walk 50ft with 2 Turns (QC): 5 Walk 150 ft (QC): 5 Walking 10ft on Uneven Surface: 5 1 Step (curb) (QC): 5 4 Steps (QC): 5 12 Steps (QC): 9 Picking up an Object (QC): 5 Does the Pt use WC or Scooter?: No Wheel 50 feet with 2 turns (QC: 5 Type: Manual Wheel 150 feet: 5 Type: Manual PT Plan Treatment/Plan Treatment Plan: Continue Plan of Care Treatment Plan: Bed Mobility, Education, Functional Activity Sallie, Functional Strength, Group Therapy, Gait, Safety, Therapeutic Exercise, Transfers Treatment Duration: Sep 05, 2020 Frequency: At least 5 of 7 days/Wk (IRF) Estimated Hrs Per Day: 1.5 hours per day Patient and/or Family Agrees t: Yes Safety Risks/Education Patient Education: Gait Training, Correct Positioning Teaching Recipient: Patient Teaching Methods: Demonstration, Discussion Response to Teaching: Verbalize Understanding, Return Demonstration Time/GCodes Time In: 1330 Time Out: 1400 Total Billed Treatment Time: 30 Total Billed Treatment 1, GT (15m) & EX (15m) GISELLE FLANAGAN INFECTIOUS DISEASES PHYSICIAN Aug 28, 2020 14:03
--- NOTE | 2020-08-28 18:06 | Progress Note - Cardiology ---
Cardiology SOAP Progress Note Subjective: Gen malaise and weakness No cp or palp or syncope Mod exertional shortness of breath No n/v/d Objective: I&O/Vital Signs 08/28/20 08/28/20 08:00 09:00 Temp 35.6 Pulse 60 Resp 20 B/P (MAP) 146/65 (92) Pulse Ox 93 O2 Delivery Room Air Room Air 08/28/20 00:00 Intake Total 720 ml Balance 720 ml Weight (Pounds): 230 Weight (Calculated Kilograms): [id number] Constitutional: AAO x 3, well-developed, well-nourished Respiratory: No accessory muscle use, No respiratory distress; chest expansion is symmetric, chest is bilaterally symmetric, other (good air entry) Cardiovascular: regular rate-rhythm; No JVD; S1 and S2 Gastrointestional: No tender; soft, round, audible bowel sounds Extremities: other (mod bilat LE swelling) Neurologic/Psychiatric: grossly intact (moves all extremities) Skin: No rash on exposed areas, No ulcerations on exposed areas A/P: Assessment: Status post wide-complex tachycardia, multiple episodes, frequent PVCs, symptomatic. most probably paroxysmal atrial fibrillation with aberrant conduction, maintained on amiodarone, Eliquis Mild elevation in troponin level, cardiac catheterization was carried out on August 13, [address] Frost showing heavily calcified coronary system with mild to moderate disease nonobstructive disease Dizziness and lightheadedness, near syncope secondary to tachycardia - no further c/o Hypertension, controlled Echocardiogram by Dr. Frost showed normal LV size and function, EF 60%, moderate mitral regurgitation, mild tricuspid regurgitation. Left atrial dilatation 5.1 cm. Generalized weakness, orthostatic dizziness and lightheadedness, unsteady gait, receiving physical and occupational therapy Urinary tract infection, improved, managed by primary care team Plan: Continue current regimen Monitor lab F/U as outpt with Dr. Frost Possible d/c to [facility] tomorrow ANDRY CASTRO MD FACP [facility] Aug 28, 2020 18:06
[2020-08-28] MEDS: TAMSULOSIN 0.4 MG (FLOMAX) CAP PO SCH (18:19)
[2020-08-28 20:00] VITALS: BP 144/82
[2020-08-28] MEDS ORDERED: POTA20TA8 PO (20:36)
[2020-08-28] MEDS ORDERED: DICL100G18 TOP (20:36)
[2020-08-28] MEDS ORDERED: MIRT-47 PO (20:36)
--- NOTE | 2020-08-28 20:37 | Discharge Inst-Skilled Nursing ---
Discharge Inst-Skilled NF Reconcile Patient Problems Problems Reviewed?: Yes Patient Instructions Patient Problems: AF Debility Goal: Return to independence Consult/Follow Up/Orders Follow Up Appt.: Dr Washington as scheduled Dr Lebron as scheduled Skilled NF Admit to: Via [facility] Certification ([facility]) I certify that [facility] services are required to be given on an inpatient basis because of the above named patient's need for group home care on a con tinuing basis for the conditions(s) for which he/she was receiving inpatient hospital services prior to his/her transfer to the [facility]. [facility] Facility Order: Nursing Services, Product Line Manager-Evaluate & Treat, Physical Therapy-Evaluate & Treat, Speech Language-Evaluate & Treat Oxygen Delivery Method: Room Air Discharge Diet: No Restrictions Resuscitation Status: Full Code New & Resume Previous Orders New Medications: Amiodarone HCl (Amiodarone HCl) 200 Mg Tablet 200 MG PO BID, #60 TAB 1 Refill Apixaban (Eliquis) 5 Mg Tablet 5 MG PO BID, #60 TAB 1 Refill Diclofenac Sodium (Voltaren) 100 Gm Gel..gram. 0 GM TOP QID PRN for PAIN-MODERATE (5-7) for 30 Days, TUBE Mirtazapine (Mirtazapine) 15 Mg Tab.rapdis 7.5 MG PO HS for 30 Days, TAB Potassium Chloride (Klor-Con M20) 20 Meq Tab.er.prt 20 MEQ PO DAILY@0700 for 30 Days Continued Medications: Acetaminophen (Tylenol Extra Strength) 500 Mg Tablet 500-1000 MG PO Q8H PRN for PAIN-MILD (1-4), TAB Bumetanide (Bumetanide) 0.5 Mg Tablet 0.5 MG PO DAILY, TAB Hydroxychloroquine Sulfate (Hydroxychloroquine Sulfate) 200 Mg Tablet 200 MG PO DAILY, TAB Latanoprost (Xalatan) 2.5 Ml Drops 1 DROP OU HS, DROPS Tamsulosin HCl (Flomax) 0.4 Mg Cap 0.4 MG PO HS, CAP Venlafaxine HCl (Venlafaxine HCl ER) 150 Mg Cap.er.24h 300 MG PO DAILY, CAP TAKES 2 (150MG) CAPS Discontinued Medications: Losartan Potassium (Losartan Potassium) 50 Mg Tablet 50 MG PO DAILY, TAB Yari Self Aug 28, 2020 20:37 YARI SELF DO Aug 28, 2020 20:37
[2020-08-28] MEDS: LATANOPROST 0.005% (XALATAN) OPHTH SOLN 2.5 ML OU SCH (20:45)
[2020-08-28] MEDS: MIRTAZAPINE 15 MG (REMERON) TAB PO SCH (20:46)
[2020-08-28] MEDS: MELATONIN 3 MG TABLET PO PRN (20:46)
[2020-08-28] MEDS: OLANZapine 2.5 MG (ZyPREXA) TAB PO SCH (20:46)
[2020-08-28] MEDS: IBUPROFEN TABLET 200 MG TAB PO PRN (20:46)
[2020-08-29] MEDS: KCL 20 MEQ TAB (K-DUR) PO SCH (06:04)
[2020-08-29] MEDS: CATHETER FLUSH 10 ML SYR IV SCH (06:04)
[2020-08-29] MEDS: VENlafaxine XR 75 MG (EFFEXOR XR) CAP PO SCH (06:04)
--- NOTE | 2020-08-29 06:06 | Discharge Summary ---
Diagnosis/Chief Complaint Date of Admission Aug 15, 2020 at 10:45 Date of Discharge Discharge Date: Aug 29, 2020 Discharge Diagnosis Assessment: Ventricular arrhythmia A fib new onset OAC new HTN Lupus Obesity Urinary retention since dc DC Pneumonitis CRI Dementia SLUMS 17 Sundown[place] Anemia iron def Plan: Monitor closely Cardiology appreciated Monitor creat Urinary retention management 08/16/20: Dc cath Monitor closely Anti-psychotics 08/17/20: Monitor closely Cardiology appreciated 08/18/20: Venofer iron infusion Support through 's dying process 08/19/20: Monitor incontinence AF on Tely 08/20/20: Monitor closely Venofer 08/21/20: Venofer Tely Monitor closely 08/22/20: Monitor BP and HR Fall risk 08/23/20: Monitor BP Telemetry 08/24/20: Monitor Tely Improved status Son will live with patient at DC 08/25/20: Monitor edema JERED/SERENA wraps Monitor tely 08/26/20: Labs in am DC this week No pain reported 08/27/20: Labs good DC tely 08/28/20: DC tomorrow to [facility] (1) Ventricular arrhythmia (2) Pneumonitis (3) Knee pain, right (4) Atrial fibrillation (5) Falls frequently (6) Urinary retention (7) Lupus Status: Chronic (8) Hypertension Status: Acute (9) Leg edema Status: Acute (10) Renal insufficiency Status: Acute Discharge Summary Discharge Physical Examination Allergies: Coded Allergies: No Known Drug Allergies (Unverified , 01/29/19) Vitals & I&Os Vital Signs Date Time Temp Pulse Resp B/P (MAP) Pulse Ox O2 Delivery O2 Flow Rate FiO2 08/29/20 12:19 35.9 65 18 132/60 93 Room Air General Appearance: Alert, Oriented X3, Cooperative Respiratory: Clear to Auscultation Cardiovascular: Regular Rate Neuro: Normal Gait, Normal Speech, Strength at 5/5 X4 Ext Psych/Mental Status: Mental Status NL Hospital Course Was the Problem List Reviewed?: Yes Hospital course: Pt had a lengthy hospital course for 15 days after he was admitted for CHF with new onset AFIB dysfunction. Pt was able to participate in all therapy, his during the time of admission to inpatient rehab so he did go to her . Overall Pt was able to optimize his independence but needed a short stay at [facility] at discharge before his son was able to move into his house and he will remain living with the Pt. Slums score was 17 and he does have significant chronic illness and with advanced age, poor prognosis was n oted. Labs (last 24 hrs) Laboratory Tests 08/16/20 04:05: White Blood Count 8.2, Red Blood Count 3.05L, Hemoglobin 8.9L, Hematocrit 28L, Mean Corpuscular Volume 92, Mean Corpuscular Hemoglobin 29, Mean Corpuscular Hemoglobin Concent 32, Red Cell Distribution Width 14.2, Platelet Count 145, Mean Platelet Volume 12.3H, Immature Granulocyte % (Auto) 1, Neutrophils (%) (Auto) 74, Lymphocytes (%) (Auto) 10L, Monocytes (%) (Auto) 12, Eosinophils (%) (Auto) 3, Basophils (%) (Auto) 1, Neutrophils # (Auto) 6.0, Lymphocytes # (Auto) 0.9L, Monocytes # (Auto) 1.0, Eosinophils # (Auto) 0.3, Basophils # (Auto) 0.0, Immature Granulocyte # (Auto) 0.1, Sodium Level 137, Potassium Level 3.9, Chloride Level 106, Carbon Dioxide Level 19L, Anion Gap 12, Blood Urea Nitrogen 18, Creatinine 0.93, Estimat Glomerular Filtration Rate > 60, BUN/Creatinine Ratio 19, Glucose Level 88, Calcium Level 8.0L, Corrected Calcium 8.6, Iron Level 29L, Total Bilirubin 1.0, Aspartate Amino Transf (AST/SGOT) 21, Alanine Aminotransferase (ALT/SGPT) 18, Alkaline Phosphatase 46, Total Protein 6.1L, Albumin 3.2 08/17/20 05:39: White Blood Count 6.9, Red Blood Count 3.05L, Hemoglobin 8.7L, Hematocrit 28L, Mean Corpuscular Volume 91, Mean Corpuscular Hemoglobin 29, Mean Corpuscular Hemoglobin Concent 31L, Red Cell Distribution Width 14.3, Platelet Count 175, Mean Platelet Volume 12.0, Immature Granulocyte % (Auto) 1, Neutrophils (%) (Auto) 71, Lymphocytes (%) (Auto) 12, Monocytes (%) (Auto) 11, Eosinophils (%) (Auto) 4, Basophils (%) (Auto) 1, Neutrophils # (Auto) 4.9, Lymphocytes # (Auto) 0.9L, Monocytes # (Auto) 0.8, Eosinophils # (Auto) 0.3, Basophils # (Auto) 0.0, Immature Granulocyte # (Auto) 0.0, Sodium Level 136, Potassium Level 3.4L, Chloride Level 105, Carbon Dioxide Level 21, Anion Gap 10, Blood Urea Nitrogen 17, Creatinine 1.02, Estimat Glomerular Filtration Rate > 60, BUN/Creatinine Ratio 17, Glucose Level 91, Calcium Level 8.0L, Corrected Calcium 8.7, Total Bilirubin 0.8, Aspartate Amino Transf (AST/SGOT) 25, Alanine Aminotransferase (ALT/SGPT) 19, Alkaline Phosphatase 46, Total Protein 6.0L, Albumin 3.1L, Lactic Acid Level 0.77, Procalcitonin 0.16H 08/27/20 05:20: White Blood Count 7.5, Red Blood Count 3.40L, Hemoglobin 9.9L, Hematocrit 32L, Mean Corpuscular Volume 94, Mean Corpuscular Hemoglobin 29, Mean Corpuscular Hemoglobin Concent 31L, Red Cell Distribution Width 15.0H, Platelet Count 219, Mean Platelet Volume 10.8, Immature Granulocyte % (Auto) 1, Neutrophils (%) (Auto) 67, Lymphocytes (%) (Auto) 13, Monocytes (%) (Auto) 13H, Eosinophils (%) (Auto) 6, Basophils (%) (Auto) 1, Neutrophils # (Auto) 5.0, Lymphocytes # (Auto) 1.0, Monocytes # (Auto) 0.9, Eosinophils # (Auto) 0.4H, Basophils # (Auto) 0.1, Immature Granulocyte # (Auto) 0.1, Sodium Level 138, Potassium Level 3.0L, Chloride Level 101, Carbon Dioxide Level 27, Anion Gap 10, Blood Urea Nitrogen 14, Creatinine 1.12, Estimat Glomerular Filtration Rate > 60, BUN/Creatinine Ratio 13, Glucose Level 97, Calcium Level 8.2L, Corrected Calcium 9.1, Total Bilirubin 0.8, Aspartate Amino Transf (AST/SGOT) 24, Alanine Aminotransferase (ALT/SGPT) 17, Alkaline Phosphatase 51, Total Protein 6.3L, Albumin 2.9L Pending Labs Laboratory Tests 08/16/20 04:05: White Blood Count 8.2, Red Blood Count 3.05, Hemoglobin 8.9, Hematocrit 28, Mean Corpuscular Volume 92, Mean Corpuscular Hemoglobin 29, Mean Corpuscular Hemoglobin Concent 32, Red Cell Distribution Width 14.2, Platelet Count 145, Mean Platelet Volume 12.3, Immature Granulocyte % (Auto) 1, Neutrophils (%) (Auto) 74, Lymphocytes (%) (Auto) 10, Monocytes (%) (Auto) 12, Eosinophils (%) (Auto) 3, Basophils (%) (Auto) 1, Neutrophils # (Auto) 6.0, Lymphocytes # (Auto) 0.9, Monocytes # (Auto) 1.0, Eosinophils # (Auto) 0.3, Basophils # (Auto) 0.0, Immature Granulocyte # (Auto) 0.1, Sodium Level 137, Potassium Level 3.9, Chloride Level 106, Carbon Dioxide Level 19, Anion Gap 12, Blood Urea Nitrogen 18, Creatinine 0.93, Estimat Glomerular Filtration Rate > 60, BUN/Creatinine Ra mary 19, Glucose Level 88, Calcium Level 8.0, Corrected Calcium 8.6, Iron Level 29, Total Bilirubin 1.0, Aspartate Amino Transf (AST/SGOT) 21, Alanine Aminotransferase (ALT/SGPT) 18, Alkaline Phosphatase 46, Total Protein 6.1, Albumin 3.2 08/17/20 05:39: White Blood Count 6.9, Red Blood Count 3.05, Hemoglobin 8.7, Hematocrit 28, Mean Corpuscular Volume 91, Mean Corpuscular Hemoglobin 29, Mean Corpuscular Hemoglobin Concent 31, Red Cell Distribution Width 14.3, Platelet Count 175, Mean Platelet Volume 12.0, Immature Granulocyte % (Auto) 1, Neutrophils (%) (Auto) 71, Lymphocytes (%) (Auto) 12, Monocytes (%) (Auto) 11, Eosinophils (%) (Auto) 4, Basophils (%) (Auto) 1, Neutrophils # (Auto) 4.9, Lymphocytes # (Auto) 0.9, Monocytes # (Auto) 0.8, Eosinophils # (Auto) 0.3, Basophils # (Auto) 0.0, Immature Granulocyte # (Auto) 0.0, Sodium Level 136, Potassium Level 3.4, Chl oride Level 105, Carbon Dioxide Level 21, Anion Gap 10, Blood Urea Nitrogen 17, Creatinine 1.02, Estimat Glomerular Filtration Rate > 60, BUN/Creatinine Ratio 17, Glucose Level 91, Calcium Level 8.0, Corrected Calcium 8.7, Total Bilirubin 0.8, Aspartate Amino Transf (AST/SGOT) 25, Alanine Aminotransferase (ALT/SGPT) 19, Alkaline Phosphatase 46, Total Protein 6.0, Albumin 3.1, Lactic Acid Level 0.77, Procalcitonin 0.16 08/27/20 05:20: White Blood Count 7.5, Red Blood Count 3.40, Hemoglobin 9.9, Hematocrit 32, Mean Corpuscular Volume 94, Mean Corpuscular Hemoglobin 29, Mean Corpuscular Hemoglobin Concent 31, Red Cell Distribution Width 15.0, Platelet Count 219, Mean Platelet Volume 10.8, Immature Granulocyte % (Auto) 1, Neutrophils (%) (Au to) 67, Lymphocytes (%) (Auto) 13, Monocytes (%) (Auto) 13, Eosinophils (%) (Auto) 6, Basophils (%) (Auto) 1, Neutrophils # (Auto) 5.0, Lymphocytes # (Auto) 1.0, Monocytes # (Auto) 0.9, Eosinophils # (Auto) 0.4, Basophils # (Auto) 0.1, Immature Granulocyte # (Auto) 0.1, Sodium Level 138, Potassium Level 3.0, Chloride Level 101, Carbon Dioxide Level 27, Anion Gap 10, Blood Urea Nitrogen 14, Creatinine 1.12, Estimat Glomerular Filtration Rate > 60, BUN/Creatinine Ratio 13, Glucose Level 97, Calcium Level 8.2, Corrected Calcium 9.1, Total Bilirubin 0.8, Aspartate Amino Transf (AST/SGOT) 24, Alanine Aminotransferase (ALT/SGPT) 17, Alkaline Phosphatase 51, Total Protein 6.3, Albumin 2.9 Discharge Home Medications: Active Scripts Active Klor-Con M20 (Potassium Chloride) 20 Meq Tab.er.prt 20 Meq PO DAILY@0700 30 Days Mirtazapine 15 Mg Tab.rapdis 7.5 Mg PO HS 30 Days Voltaren (Diclofenac Sodium) 100 Gm Gel..gram. 0 Gm TOP QID PRN 30 Days Amiodarone HCl 200 Mg Tablet 200 Mg PO BID Eliquis (Apixaban) 5 Mg Tablet 5 Mg PO BID Reported Tylenol Extra Strength (Acetaminophen) 500 Mg Tablet 500-1,000 Mg PO Q8H PRN Xalatan (Latanoprost) 2.5 Ml Drops 1 Drop OU HS Bumetanide 0.5 Mg Tablet 0.5 Mg PO DAILY Hydroxychloroquine Sulfate 200 Mg Tablet 200 Mg PO DAILY Flomax (Tamsulosin HCl) 0.4 Mg Cap 0.4 Mg PO HS Venlafaxine HCl ER (Venlafaxine HCl) 150 Mg Cap.er.24h 300 Mg PO DAILY TAKES 2 (150MG) CAPS Instructions to patient/family Please see electronic discharge instructions given to patient. Diagnosis/Problems Diagnosis/Problems (1) Ventricular arrhythmia (2) Pneumonitis (3) Knee pain, right (4) Atrial fibrillation (5) Falls frequently (6) Urinary retention (7) Lupus Status: Chronic (8) Hypertension Status: Acute (9) Leg edema Status: Acute (10) Renal insufficiency Status: Acute ELDA LUNA DO Aug 29, 2020 06:05
[2020-08-29 08:00] VITALS: BP 132/60
[2020-08-29] MEDS: AMIODARONE 200 MG (CORDARONE) TAB PO SCH (09:39)
[2020-08-29] MEDS: SENNA W/DOCUSATE (SENOKOT S) TABLET PO SCH (09:39)
[2020-08-29] MEDS: APIXABAN 5 MG (ELIQUIS) TABLET PO SCH (09:48)
[2020-08-29] MEDS: BUMETANIDE 1 MG (BUMEX) TAB PO SCH (09:48)
[2020-08-29] MEDS: DOCUSATE SODIUM 100 MG (COLACE) CAP PO SCH (09:48)
[2020-08-29] MEDS: polyethylene glycoL POWDER 17 GM (MIRALAX) PACK PO SCH (09:49)
--- NOTE | 2020-08-29 09:53 | Therapy Team Discharge Summary ---
Therapy Discharge Summary Discharge Recommendations Date of Discharge Physical Therapy Patient was admitted to rehab with Ventricular Tachycardia and debility. Upon evaluation patient performed bed mobility with mod assist, supine <-> sit min assist, sit <-> stand mod assist, transfers mod assist, car transfer mod assist, ambulated 5' with a rolling walker with mod assist, and could propel a manual WC 50' with SBA. Patient has been performing bed mobility and transfer training, balance and endurance training, functional strengthening, stair training, gait training, and education. Patient has made good progress and has met all of his mcfp goals. Now, patient performs bed mobility and transfers with setup, car transfer with setup, ambulates 275' with a rolling walker with setup (including 50' with at least 2 turns of 90 degrees and 10' over an uneven surface), and can go up and down 4 steps using 2 handrails with setup. Patient is discharging from this facility today and will be discharged from PT at this time. Occupational Therapy Decreased Activ Tolerance, Impaired I ADL's, Impaired Self-Care Skills PT Inspector Balance Wheel Motion Goals Inspector Balance Wheel Motion Goals PT Inspector Balance Wheel Motion Goals Time Frame: Sep 05, 2020 Roll Left to Right (QC): 5 Sit to Lying (QC): 5 Lying-Sitting on Side/Bed(QC): 5 Sit to Stand (QC): 5 Chair/Tbl-tc-Tbvtd Xfer(QC): 5 Car Transfer (QC): 5 Does the Patient Walk: Yes Walk 10 feet (QC): 5 Walk 10ft-Uneven Surface(QC): 5 Walk 50ft with 2 Turns (QC): 5 Walk 150 ft (QC): 5 Does the Pt use WC or Scooter?: No Wheel 50 feet with 2 turns (QC: 5 1 Step (curb) (QC): 5 4 Steps (QC): 5 12 Steps (QC): 9 Picking up an Object (QC): 5 OT Inspector Balance Wheel Motion Goals Senior Care Goals Time Frame: Sep 05, 2020 Eating (FIM): 6 Eating (QC): 6 Oral Hygiene (QC): 6 Shower/Bathe Self (QC): 4 Upper Body Dressing (QC): 6 Lower Body Dressing (QC): 4 On/Off Footwear (QC): 4 Toileting(FIM): 6 Toileting Hygiene (QC): 6 Toilet/Commode Transfer (QC): 5 Additional Goals: 1-Demonstrate ADL Tasks, 2-Verbalize Understanding, 3-ImproveStrength/Sallie 1=Demonstrate adherence to instructed precautions during ADL tasks. 2=Patient will verbalize/demonstrate understanding of assistive devices/modifications for ADL. 3=Patient will improve strength/tolerance for activity to enable patient to perf orm ADL's. Speech Senior Care Goals Senior Care Goals Pt will improve cognitive communication abilities so that he can complete daily tasks with minimal assist. JIMENEZ HOBSON PT Aug 29, 2020 09:53
--- NOTE | 2020-08-29 11:11 | Therapy Team Discharge Summary ---
Therapy Discharge Summary Discharge Recommendations Date of Discharge 08-29-20 Therapy D/C Recommendations: 24 hr Supervision Occupational Therapy Pt. has been seen by Occupational therapy to increase overall strength and independence with daily skills. Pt. has made great progress in area of end urance and activity tolerance. Requires assistance for balance and LE ADL skills. Pt. to discharge to SNF for continued strengthening, and then home with family support. Recommend hip kit. Decreased Activ Tolerance, Decreased UE Strength, Dependent Transfers, Impaired Funct Balance, Impaired I ADL's, Impaired Self-Care Skills PT Fdc Goals General Manager Land Department Goals PT Fdc Goals Time Frame: Sep 05, 2020 Roll Left to Right (QC): 5 Sit to Lying (QC): 5 Lying-Sitting on Side/Bed(QC): 5 Sit to Stand (QC): 5 Chair/Ojr-et-Jjtwp Xfer(QC): 5 Car Transfer (QC): 5 Does the Patient Walk: Yes Walk 10 feet (QC): 5 Walk 10ft-Uneven Surface(QC): 5 Walk 50ft with 2 Turns (QC): 5 Walk 150 ft (QC): 5 Does the Pt use WC or Scooter?: No Wheel 50 feet with 2 turns (QC: 5 1 Step (curb) (QC): 5 4 Steps (QC): 5 12 Steps (QC): 9 Picking up an Object (QC): 5 OT General Manager Land Department Goals General Manager Land Department Goals Time Frame: Sep 05, 2020 Eating (FIM): 6 (met) Eating (QC): 6 (met) Oral Hygiene (QC): 6 (not met) Shower/Bathe Self (QC): 4 (not met) Upper Body Dressing (QC): 6 (not met) Lower Body Dressing (QC): 4 (not met) On/Off Footwear (QC): 4 (not met) Toileting(FIM): 6 (not met) Toileting Hygiene (QC): 6 (not met) Toilet/Commode Transfer (QC): 5 (not met) Additional Goals: 1-Demonstrate ADL Tasks, 2-Verbalize Understanding, 3- ImproveStrength/Sallie 1=Demonstrate adherence to instructed precautions during ADL tasks. 2=Patient will verbalize/demonstrate understanding of assistive devices/ modifications for ADL. 3=Patient will improve strength/tolerance for activity to enable patient to perform ADL's. Speech General Manager Land Department Goals General Manager Land Department Goals Pt will improve cognitive communication abilities so that he can complete daily tasks with minimal assist. TASH PASCUAL OT Aug 29, 2020 11:11
[2020-08-29 12:19] VITALS: BP 132/60
== END 2020-08-29 11:35 | DRG 308 ==
PROVIDERS: ADMIT Internal Medicine; ATTEND Internal Medicine
DX: R00.0 Tachycardia, unspecified (principal); J18.9 Pneumonia, unspecified organism; T83.511A Infection and inflammatory reaction due to indwelling urethral catheter, initial encounter; I49.3 Ventricular premature depolarization; I48.0 Paroxysmal atrial fibrillation; N30.90 Cystitis, unspecified without hematuria; Z91.81 History of falling; M17.11 Unilateral primary osteoarthritis, right knee; I12.9 Hypertensive chronic kidney disease with stage 1 through stage 4 chronic kidney disease, or unspecified chronic kidney disease; N18.9 Chronic kidney disease, unspecified; E78.00 Pure hypercholesterolemia, unspecified; L93.0 Discoid lupus erythematosus; I08.1 Rheumatic disorders of both mitral and tricuspid valves; N40.1 Benign prostatic hyperplasia with lower urinary tract symptoms; N39.498 Other specified urinary incontinence; R33.8 Other retention of urine; K21.9 Gastro-esophageal reflux disease without esophagitis; E66.9 Obesity, unspecified; Z68.34 Body mass index [BMI] 34.0-34.9, adult; G47.00 Insomnia, unspecified; R41.0 Disorientation, unspecified; R42 Dizziness and giddiness; R26.81 Unsteadiness on feet; F41.9 Anxiety disorder, unspecified; F32.9 Major depressive disorder, single episode, unspecified; Z87.891 Personal history of nicotine dependence; Z79.01 Long term (current) use of anticoagulants; Z96.652 Presence of left artificial knee joint
CPT/HCPCS: 36410; 36415; 76937; 80053; 83540; 83605; 84145; 85025

== ENCOUNTER 2020-09-01 19:22 | Emergency (ER) | payer MEDICARE ==
[~2020-09-01] VITALS: Ht 182.9 cm; Wt 104.3 kg
[~2020-09-01 19:22] MED LIST changes: -ACETAMINOPHEN 325 MG TABLET PO PRN; -ALPRAZolam 0.25 MG (XANAX) TAB PO PRN; +AMIO200T6 PO; +APIX5TAB PO; -BISACODYL 10 MG SUPP (DULCOLAX) PR PRN; -CALCIUM CARBONATE 500 MG (TUMS) TAB.CHEW PO PRN; +DICL100G18 TOP; -DOCUSATE SODIUM 100 MG (COLACE) CAP PO PRN; -FLEET ENEMA ADULT 1 EA BTL PR PRN; -LACTULOSE SYRUP 10GM/15ML (ENULOSE) 30ML UDC PO PRN; -LOPERAMIDE 2 MG (IMODIUM) TABLET PO PRN; +MIRT-47 PO; -ONDANSETRON 4 MG (ZOFRAN) ORAL DISSOLVE TAB PO PRN; +POTA20TA8 PO; -diphenhydrAMINE 25 MG TAB (BENADRYL) PO PRN; -guaiFENesin/CODEINE (ROBITUSSIN AC) 10ML UDC PO PRN
--- NOTE | 2020-09-01 20:11 | ED Lower Extremity ---
General Chief Complaint: Lower Extremity Stated Complaint: R LEG SWELLING/REDNESS Source: patient Exam Limitations: no limitations History of Present Illness Date Seen by Provider: Sep 01, 2020 Time Seen by Provider: 19:50 Initial Comments This is a well-appearing 80-year-old male presents to the ER with complaints of right leg swelling, redness that started earlier today. He was recently hospitalized for cardiac dysrhythmia and was released 3 days ago to rehab at [facility]. Daughter states that she visited today and noticed that he had splotch red areas on his leg, that seem to have progressively worsened throughout the day. He is currently denying any pain. He was sent over to evaluate for possible DVT. However he is noted to be taking Eliquis twice daily for his A. fib since August 13. Allergies and Home Medications Allergies Coded Allergies: No Known Drug Allergies (Unverified , 01/29/19) Home Medications Acetaminophen 500 Mg Tablet, 500-1,000 MG PO Q8H PRN for PAIN-MILD (1-4), (Reported) Amiodarone HCl 200 Mg Tablet, 200 MG PO BID Prescribed by: IVY RODRIGUEZ on 08/28/201351 Apixaban 5 Mg Tablet, 5 MG PO BID Prescribed by: IVY RODRIGUEZ on 08/28/201351 Bumetanide 0.5 Mg Tablet, 0.5 MG PO DAILY, (Reported) Diclofenac Sodium 100 Gm Gel..gram., 0 GM TOP QID PRN for PAIN-MODERATE (5-7) Prescribed by: ELDA LUNA on 08/28/202035 Doxycycline Hyclate 100 Mg Tablet, 100 MG PO BID Prescribed by: NARAYAN GARBER on 09/01/202103 Hydroxychloroquine Sulfate 200 Mg Tablet, 200 MG PO DAILY, (Reported) Latanoprost 2.5 Ml Drops, 1 DROP OU HS, (Reported) Mirtazapine 15 Mg Tab.rapdis, 7.5 MG PO HS Prescribed by: ELDA LUNA on 08/28/202035 Potassium Chloride 20 Meq Tab.er.prt, 20 MEQ PO DAILY@0700 Prescribed by: ELDA LUNA on 08/28/202035 Tamsulosin HCl 0.4 Mg Cap, 0.4 MG PO HS, (Reported) Venlafaxine HCl 150 Mg Cap.er.24h, 300 MG PO DAILY, (Reported) TAKES 2 (150MG) CAPS Patient Home Medication List Home Medication List Reviewed: Yes Review of Systems Constitutional: no symptoms reported EENTM: no symptoms reported Respiratory: no symptoms reported Cardiovascular: no symptoms reported Gastrointestinal: no symptoms reported Genitourinary: no symptoms reported Past Wsgvtwb-Qglwkn-Qjwppc Hx Patient Social History Drug of Choice: DENIES Type Used: Cigarettes Former Smoker, Quit: Jan 31, 1985 Recent Hopitalizations: No Immunizations Up To Date Tetanus Booster (TDap): More than 5yrs Date of Pneumonia Vaccine: Mar 12, 2009 Date of Influenza Vaccine: Feb 09, 2020 Seasonal Allergies Seasonal Allergies: No Past Medical History Surgeries: Yes (BILAT RCR, HAND SURG, L TKR, THORACENTESIS;C OLONOSCOPIES/POLYPECTOMY) Appendectomy, Gallbladder, Joint Replacement, Orthopedic Respiratory: Yes Pneumonia Cardiac: Yes ( ) Atrial Fibrillation, Chronic Edema/Swelling, High Cholesterol, Hypertension, Rheumatic Fever Neurological: No Reproductive Disorders: No Sexually Transmitted Disease: No Genitourinary: Yes ("KIDNEY PROBLEMS" ) Benign Prostatic Hyperpl, Bladder Infection, Renal Failure Gastrointestinal: Yes Gastroesophageal Reflux, Polyps Musculoskeletal: Yes (ROTATOR CUFF REPAIR, LEFT TOTAL KNEE REPLACEMENT, HAND SURGERY) Arthritis Endocrine: Yes (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) Lupus HEENT: No Cancer: No Psychosocial: Yes Anxiety, Depression Integumentary: Yes (CUTANEOUS LUPUS, 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) Blood Disorders: No Family Medical History SOCIAL HISTORY: -ETOH--HISTORY OF USE/ABUSE -DRUGS-DENIES USE -SMOKED 1 PPD X 30 YEARS, QUIT SEVERAL YEARS AGO PAST SURGICAL HISTORY: -BILATERAL ROTATOR CUFF REPAIR -HAND SURGERY -LEFT TOTAL KNEE REPLACEMENT -LEFT THORACENTESIS 10/2012 FOR PLEURAL EFFUSION -APPENDECTOMY -CHOLECYSTECTOMY ( GANGRENOUS GALLBLADDER) -COLONOSCOPY WITH POLYPECTOMY 2013 -BILATERAL CATARACT SURGERY Physical Exam Vital Signs Vital Signs - First Documented 09/01/20 19:45 Temp 36.8 Pulse 79 Resp 20 B/P (MAP) 154/100 (118) Pulse Ox 96 O2 Delivery Room Air Capillary Refill : Height, Weight, BMI Height: '0" Weight: 230lbs. oz. [id number]; 31.91 BMI Method:Stated General Appearance: WD/WN, no apparent distress HEENT: PERRL/EOMI, normal ENT inspection Neck: full range of motion, normal inspection Cardiovascular: no murmur, irregularly irregular Respiratory: lungs clear, normal breath sounds, no respiratory distress Gastrointestinal: normal bowel sounds, non tender, soft Back: normal inspection, no vertebral tenderness Legs: right leg soft tissue tenderness, right leg swelling, right leg other (erythema. ) Feet: right foot other (2cm healing stage 2 ulcer ) Neurologic/Tendon: normal sensation, normal motor functions, normal tendon functions, responds to pain Neurologic/Psychiatric: no motor/sensory deficits, alert, normal mood/affect, oriented x 3 Skin: normal color, warm/dry Progress/Results/Core Measures Results/Orders Lab Results Laboratory Tests Test 09/01/20 20:00 Range/Units White Blood Count 8.5 4.3-11.0 10^3/uL Red Blood Count 4.21 L 4.30-5.52 10^6/uL Hemoglobin 11.8 L 13.3-17.7 g/dL Hematocrit 39 L 40-54 % Mean Corpuscular Volume 92 80-99 fL Mean Corpuscular Hemoglobin 28 25-34 pg Mean Corpuscular Hemoglobin Concent 30 L 32-36 g/dL Red Cell Distribution Width 14.6 H 10.0-14.5 % Platelet Count 314 130-400 10^3/uL Mean Platelet Volume 10.8 9.0-12.2 fL Immature Granulocyte % (Auto) 1 % Neutrophils (%) (Auto) 72 42-75 % Lymphocytes (%) (Auto) 11 L 12-44 % Monocytes (%) (Auto) 10 0-12 % Eosinophils (%) (Auto) 6 0-10 % Basophils (%) (Auto) 1 0-10 % Neutrophils # (Auto) 6.1 1.8-7.8 10^3/uL Lymphocytes # (Auto) 0.9 L 1.0-4.0 10^3/uL Monocytes # (Auto) 0.9 0.0-1.0 10^3/uL Eosinophils # (Auto) 0.5 H 0.0-0.3 10^3/uL Basophils # (Auto) 0.1 0.0-0.1 10^3/uL Immature Granulocyte # (Auto) 0.1 0.0-0.1 10^3/uL D-Dimer 3.90 H 0.00-0.49 UG/ML Sodium Level 135 135-145 MMOL/L Potassium Level 4.1 3.6-5.0 MMOL/L Chloride Level 98 98-107 MMOL/L Carbon Dioxide Level 28 21-32 MMOL/L Anion Gap 9 5-14 MMOL/L Blood Urea Nitrogen 13 7-18 MG/DL Creatinine 1.43 H 0.60-1.30 MG/DL Estimat Glomerular Filtration Rate 48 BUN/Creatinine Ratio 9 Glucose Level 138 H 70-105 MG/DL Calcium Level 8.9 8.5-10.1 MG/DL Corrected Calcium 9.3 8.5-10.1 MG/DL Total Bilirubin 0.7 0.1-1.0 MG/DL Aspartate Amino Transf (AST/SGOT) 41 H 5-34 U/L Alanine Aminotransferase (ALT/SGPT) 27 0-55 U/L Alkaline Phosphatase 84 40-136 U/L Total Protein 8.3 H 6.4-8.2 GM/DL Albumin 3.5 3.2-4.5 GM/DL My Orders Orders - NARAYAN GARBER [employer] Cbc With Automated Diff (09/01/20 20:08) Comprehensive Metabolic Panel (09/01/20 20:08) Fibrin Degradation Products (09/01/20 20:25) Doxycycline Hyclate Tablet (Vibramycin T (09/01/20 21:00) Medications Given in ED Current Medications Medications Dose Ordered Sig/Gaby Route Start Time Stop Time Status Last Admin Dose Admin Doxycycline Hyclate 100 mg ONCE ONCE PO 09/01/20 21:00 09/01/20 21:02 DC 09/01/20 21:08 100 MG Vital Signs/I&O 09/01/20 09/01/20 19:45 21:45 Temp 36.8 36.8 Pulse 79 82 Resp 20 20 B/P (MAP) 154/100 (118) 151/70 (118) Pulse Ox 96 97 O2 Delivery Room Air Room Air Progress Progress Note : Progress Note Pt. examined and in no acute distress. He has noted stage 2 ulcer on his right heel. Erythema and swelling start distally and extend proximally consistent with cellulitis. He was recently placed on Eliquis 5mg BID for Afib on 08/13/20. Will check basic labs and Ddimer. No US available tonight. Labs reviewed. Ddimer elevated >3, will order outpatient US of RLE on [place]. He is currently anticoagulated with Eliquis. Will start Doxycycline 100mg tonight and Rx 100mg PO BID x 7 days. Area of erythema demarcated by RN. group home to monitor. Reviewed discharge plan and patient and daughter are agreeable with plan. No concerns voiced. Departure Impression Primary Impression: Cellulitis Disposition: [facility] Condition: Stable Departure-Patient Inst. Decision time for Depature: 21:01 Referrals: DA TRUONG MD (PCP/Family) Primary Care Physician Patient Instructions: Cellulitis (Skin Infection), Adult (DC) Add. Discharge Instructions: Plan: [facility] 2. Return on Thursday for ultrasound of right lower extremity. Call hospital to schedule time. 3. Take Doxycycline 100mg by mouth twice a day as directed. 4. Monitor for increased redness and swelling while taking antibiotics. Follow up with PCP or return of redness persist. 5. May take Tylenol as needed for pain per package. 6. Drink plenty of fluids, keep lower extremity elevated. All discharge instructions reviewed with patient and/or family. Voiced understanding. Scripts Doxycycline Hyclate (Doxycycline Hyclate) 100 Mg Tablet 100 MG PO BID for 7 Days, #14 TAB 0 Refills Prov: NARAYAN GARBER [employer] 09/01/20 NARAYAN GARBER [employer] Sep 01, 2020 20:10
[2020-09-01 20:23] LABS: BASOPHILS # (AUTO) 0.1 10^3/uL (0.0-0.1); BASOPHILS % (AUTO) 1 % (0-10); EOSINOPHILS # (AUTO) 0.5 10^3/uL (0.0-0.3); EOSINOPHILS % (AUTO) 6 % (0-10); HEMATOCRIT 39 % (40-54); HEMOGLOBIN 11.8 g/dL (13.3-17.7); LYMPHOCYTES # (AUTO) 0.9 10^3/uL (1.0-4.0); LYMPHOCYTES % (AUTO) 11 % (12-44); MEAN CORPUSCULAR HEMOGLOBIN 28 pg (25-34); MEAN CORPUSCULAR HGB CONC 30 g/dL (32-36); MEAN CORPUSCULAR VOLUME 92 fL (80-99); MEAN PLATELET VOLUME 10.8 fL (9.0-12.2); MONOCYTES # (AUTO) 0.9 10^3/uL (0.0-1.0); MONOCYTES % (AUTO) 10 % (0-12); NEUTROPHILS # (AUTO) 6.1 10^3/uL (1.8-7.8); NEUTROPHILS % (AUTO) 72 % (42-75); PLATELET COUNT 314 10^3/uL (130-400); WHITE BLOOD COUNT 8.5 10^3/uL (4.3-11.0)
[2020-09-01 20:53] LABS: ALBUMIN 3.5 GM/DL (3.2-4.5); BILIRUBIN,TOTAL 0.7 MG/DL (0.1-1.0); CALCIUM 8.9 MG/DL (8.5-10.1); CREATININE SERUM 1.43 MG/DL (0.60-1.30); POTASSIUM 4.1 MMOL/L (3.6-5.0); TOTAL PROTEIN 8.3 GM/DL (6.4-8.2)
[2020-09-01] MEDS ORDERED: DOXYCYCLINE 100 MG (VIBRAMYCIN) TABLET PO ONE (21:00)
[2020-09-01] MEDS ORDERED: DOXY100T2 PO (21:04)
[2020-09-01 21:45] VITALS: BP 151/70
== END 2020-09-01 22:30 ==
LOC: EDUNIT# 19:22 → ER 19:24
DX: L03.115 Cellulitis of right lower limb (principal); I48.91 Unspecified atrial fibrillation; F41.9 Anxiety disorder, unspecified; F32.9 Major depressive disorder, single episode, unspecified; N40.0 Benign prostatic hyperplasia without lower urinary tract symptoms; I10 Essential (primary) hypertension; Z87.891 Personal history of nicotine dependence; Z79.01 Long term (current) use of anticoagulants
CPT/HCPCS: 36415; 80053; 85025; 85379

== ENCOUNTER 2020-10-13 11:59 | Emergency (ER) | payer MEDICARE, OTHER ==
[~2020-10-13] VITALS: Ht 182.8 cm; Wt 104.5 kg
[~2020-10-13 11:59] MED LIST changes: +DOXY100T2 PO
--- NOTE | 2020-10-13 12:25 | ED Hip Pain/Injury ---
General Chief Complaint: Trauma-Non Activation Stated Complaint: FALL/R HIP PAIN Source: patient Exam Limitations: no limitations History of Present Illness Date Seen by Provider: Oct 13, 2020 Time Seen by Provider: 12:24 Initial Comments To ER with right buttock pain after a fall 2 days ago. He has been ambulatory with a walker but with persistent pain. Timing/Duration: other (2 days) Severity: moderate Method of Injury: fell Associated Symptoms: denies symptoms Allergies and Home Medications Allergies Coded Allergies: No Known Drug Allergies (Unverified , 01/29/19) Home Medications Acetaminophen 500 Mg Tablet, 500-1,000 MG PO Q8H PRN for PAIN-MILD (1-4), (Reported) Amiodarone HCl 200 Mg Tablet, 200 MG PO BID Prescribed by: IVY RODRIGUEZ on 08/28/201351 Apixaban 5 Mg Tablet, 5 MG PO BID Prescribed by: IVY RODRIGUEZ on 08/28/201351 Bumetanide 0.5 Mg Tablet, 0.5 MG PO DAILY, (Reported) Diclofenac Sodium 100 Gm Gel..gram., 0 GM TOP QID PRN for PAIN-MODERATE (5-7) Prescribed by: ELDA LUNA on 08/28/202035 Doxycycline Hyclate 100 Mg Tablet, 100 MG PO BID Prescribed by: NARAYAN GARBER on 09/01/202103 Hydroxychloroquine Sulfate 200 Mg Tablet, 200 MG PO DAILY, (Reported) Latanoprost 2.5 Ml Drops, 1 DROP OU HS, (Reported) Mirtazapine 15 Mg Tab.rapdis, 7.5 MG PO HS Prescribed by: ELDA LUNA on 08/28/202035 Potassium Chloride 20 Meq Tab.er.prt, 20 MEQ PO DAILY@0700 Prescribed by: ELDA LUNA on 08/28/202035 Tamsulosin HCl 0.4 Mg Cap, 0.4 MG PO HS, (Reported) Venlafaxine HCl 150 Mg Cap.er.24h, 300 MG PO DAILY, (Reported) TAKES 2 (150MG) CAPS Patient Home Medication List Home Medication List Reviewed: Yes Review of Systems Constitutional: see HPI EENTM: see HPI Respiratory: no symptoms reported Cardiovascular: no symptoms reported Genitourinary: no symptoms reported Musculoskeletal: see HPI Skin: no symptoms reported Past Isapnaw-Dkapbl-Zxlgqh Hx Patient Social History Drug of Choice: DENIES Type Used: Cigarettes Former Smoker, Quit: Jan 31, 1985 Recent Hopitalizations: No Immunizations Up To Date Tetanus Booster (TDap): More than 5yrs Date of Pneumonia Vaccine: Mar 12, 2009 Date of Influenza Vaccine: Feb 09, 2020 Seasonal Allergies Seasonal Allergies: No Past Medical History Surgeries: Yes (BILAT RCR, HAND SURG, L TKR, THORACE NTESIS;COLONOSCOPIES/POLYPECTOMY) Appendectomy, Gallbladder, Joint Replacement, Orthopedic Respiratory: Yes Pneumonia Cardiac: Yes ( ) Atrial Fibrillation, Chronic Edema/Swelling, High Cholesterol, Hypertension, Rheumatic Fever Neurological: No Reproductive Disorders: No Sexually Transmitted Disease: No Genitourinary: Yes ("KIDNEY PROBLEMS" ) Benign Prostatic Hyperpl, Bladder Infection, Renal Failure Gastrointestinal: Yes Gastroesophageal Reflux, Polyps Musculoskeletal: Yes (ROTATOR CUFF REPAIR, LEFT TOTAL KNEE REPLACEMENT, HAND SURGERY) Arthritis Endocrine: Yes (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) Lupus HEENT: No Cancer: No Psychosocial: Yes Anxiety, Depression Integumentary: Yes (CUTANEOUS LUPUS, 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) Blood Disorders: No Family Medical History SOCIAL HISTORY: -ETOH--HISTORY OF USE/ABUSE -DRUGS-DENIES USE -SMOKED 1 PPD X 30 YEARS, QUIT SEVERAL YEARS AGO PAST SURGICAL HISTORY: -BILATERAL ROTATOR CUFF REPAIR -HAND SURGERY -LEFT TOTAL KNEE REPLACEMENT -LEFT THORACENTESIS 10/2012 FOR PLEURAL EFFUSION -APPENDECTOMY -CHOLECYSTECTOMY ( GANGRENOUS GALLBLADDER) -COLONOSCOPY WITH POLYPECTOMY 2013 -BILATERAL CATARACT SURGERY Physical Exam Vital Signs Vital Signs - First Documented 10/13/20 12:17 Temp 35.9 Pulse 36 Resp 18 B/P (MAP) 151/85 (107) Pulse Ox 94 O2 Delivery Room Air Capillary Refill : Height, Weight, BMI Height: '0" Weight: 230lbs. oz. 104.362692by; 31.00 BMI Method:Stated General Appearance: No Apparent Distress, WD/WN HEENT: PERRL/EOMI Neck: Full Range of Motion, Normal Inspection Respiratory: No Accessory Muscle Use, No Respiratory Distress Gastrointestinal: Normal Bowel Sounds, Non Tender, Soft Extremity: Normal Capillary Refill, Normal Inspection, Other (There is palpable hematoma over the ischium/right buttock. There is no pain over the anterior hip or lateral hip. I offered him pain medication but he states he does not need any.) Neurologic/Psychiatric: Alert, Oriented x3 Skin: Normal Color, Warm/Dry Progress/Results/Core Measures Results/Orders My Orders Orders - EDIS DUBON APRN Pelvis With Right Hip 2-3views (10/13/20 12:21) Vital Signs/I&O 10/13/20 12:17 Temp 35.9 Pulse 36 Resp 18 B/P (MAP) 151/85 (107) Pulse Ox 94 O2 Delivery Room Air Departure Communication (Admissions) Discussed with family that there could be a nonvisualized nondisplaced fracture of the inferior pubic ramus but that it would not exchange mechanic so there is no value in getting a CT. Impression Primary Impression: Ischial contusion Disposition: HOME, SELF-CARE Condition: Stable Departure-Patient Inst. Decision time for Depature: 13:00 Referrals: DA TRUONG MD (PCP/Family) Primary Care Physician Patient Instructions: Contusion (DC) Add. Discharge Instructions: 1. Return to ER for any concerns. Follow-up with your doctor next week. All discharge instructions reviewed with patient and/or family. Voiced understan sandee. EDIS DUBON APRN Oct 13, 2020 12:25
--- NOTE | 2020-10-13 12:46 | Diagnostic Imaging Report ---
INDICATION: Fall with right hip pain. COMPARISON: None. DISCUSSION: AP view of the pelvis and oblique view of the right hip were obtained. Mild degenerative disease is noted within the bilateral hip joints. No displaced fracture or dislocation. Alignment is anatomic. Soft tissues are unremarkable. IMPRESSION: 1. Negative right hip. Dictated by: Dictated on workstation # [id number]
[2020-10-13 13:02] VITALS: BP 149/76
== END 2020-10-13 13:02 | disposition home or self-care (01) ==
LOC: EDUNIT# 11:59 → ER 12:01
DX: S30.0XXA Contusion of lower back and pelvis, initial encounter (principal); I10 Essential (primary) hypertension; I48.91 Unspecified atrial fibrillation; N40.0 Benign prostatic hyperplasia without lower urinary tract symptoms; F41.9 Anxiety disorder, unspecified; F32.9 Major depressive disorder, single episode, unspecified; Z87.891 Personal history of nicotine dependence; Z79.01 Long term (current) use of anticoagulants; Z79.899 Other long term (current) drug therapy; W19.XXXA Unspecified fall, initial encounter

== ENCOUNTER 2021-10-03 14:26 | Outpatient (RCR) | payer MEDICARE, OTHER ==
[~2021-10-03 14:26] MED LIST changes: -AMIO200T6 PO; +AMIO200T65 PO; +POTA-169 PO; -POTA20TA8 PO
== END 2021-10-08 | disposition home or self-care (01) ==
PROVIDERS: ATTEND Internal Medicine
DX: M48.061 Spinal stenosis, lumbar region without neurogenic claudication (principal); W19.XXXA Unspecified fall, initial encounter

== ENCOUNTER → 2021-10-15 | Outpatient (CLI) | payer MEDICARE, OTHER ==
--- NOTE | 2021-10-15 14:40 | Diagnostic Imaging Report ---
Indication: Weakness. Time of Exam: 2:29 PM Comparison is made with prior chest from 01/29/2019. The heart is enlarged. Lungs appear clear. No infiltrate or failure is detected. No effusion or pneumothorax is seen. There are kyphoplasty changes at multiple levels lower thoracic and lumbar spine. IMPRESSION: Cardiomegaly. No acute cardiopulmonary process is detected. Dictated by: Dictated on workstation # [id number]
== END ==
LOC: RAD 14:08
PROVIDERS: ATTEND Physician Assistant
DX: I51.7 Cardiomegaly (principal); I50.9 Heart failure, unspecified
CPT/HCPCS: 71046

== ENCOUNTER 2021-11-05 15:07 | Outpatient (RCR) | payer MEDICARE, OTHER | END 2021-11-07 | disposition home or self-care (01) | PROVIDERS: ATTEND Internal Medicine | DX: M48.061 Spinal stenosis, lumbar region without neurogenic claudication (principal) ==

== ENCOUNTER 2021-11-18 13:45 | Outpatient (RCR) | payer MEDICARE, OTHER ==
[2021-11-20] MEDS ORDERED: AMIO200T65 PO (15:48)
[2021-11-20] MEDS ORDERED: APIX5TAB PO (15:48)
[2021-11-20] MEDS ORDERED: DOCU100C37 PO (15:48)
[2021-11-20] MEDS ORDERED: MIRT7.5T8 PO (15:48)
[2021-11-20] MEDS ORDERED: POTA-169 PO (15:48)
[2021-11-20] MEDS ORDERED: PSYL0.4C2 PO (15:48)
[2021-12-04] MEDS ORDERED: LISI20TA26 PO (07:31)
== END 2021-12-08 | disposition home or self-care (01) ==
PROVIDERS: ATTEND Internal Medicine
DX: M48.061 Spinal stenosis, lumbar region without neurogenic claudication (principal); R53.81 Other malaise

== ENCOUNTER 2021-11-19 17:28 | Inpatient (IN) | payer MEDICARE, OTHER ==
[~2021-11-19] VITALS: Ht 182.9 cm; Wt 101.1 kg
[2021-11-19 18:10] LABS: ALBUMIN 3.5 GM/DL (3.2-4.5); BASOPHILS # (AUTO) 0.1 10^3/uL (0.0-0.1); BASOPHILS % (AUTO) 1 % (0-10); CHLORIDE 104 MMOL/L (98-107); EOSINOPHILS # (AUTO) 0.4 10^3/uL (0.0-0.3); EOSINOPHILS % (AUTO) 3 % (0-10); HEMATOCRIT 38 % (40-54); HEMOGLOBIN 11.7 g/dL (13.3-17.7); LYMPHOCYTES # (AUTO) 1.6 10^3/uL (1.0-4.0); LYMPHOCYTES % (AUTO) 10 % (12-44); MEAN CORPUSCULAR HEMOGLOBIN 28 pg (25-34); MEAN CORPUSCULAR HGB CONC 31 g/dL (32-36); MEAN CORPUSCULAR VOLUME 92 fL (80-99); MEAN PLATELET VOLUME 12.8 fL (9.0-12.2); MONOCYTES # (AUTO) 1.1 10^3/uL (0.0-1.0); MONOCYTES % (AUTO) 7 % (0-12); NEUTROPHILS # (AUTO) 12.6 10^3/uL (1.8-7.8); NEUTROPHILS % (AUTO) 80 % (42-75); PLATELET COUNT 207 10^3/uL (130-400); POTASSIUM 4.1 MMOL/L (3.6-5.0); SODIUM 136 MMOL/L (135-145); WHITE BLOOD COUNT 15.8 10^3/uL (4.3-11.0)
[2021-11-19 18:11] LABS: CALCIUM 8.6 MG/DL (8.5-10.1)
[2021-11-19 18:12] LABS: GLUCOSE 179 MG/DL (70-105); TOTAL PROTEIN 6.6 GM/DL (6.4-8.2)
[2021-11-19 18:13] LABS: CARBON DIOXIDE 22 MMOL/L (21-32)
[2021-11-19 18:14] LABS: BILIRUBIN,TOTAL 0.6 MG/DL (0.1-1.0)
[2021-11-19 18:16] LABS: ALKALINE PHOSPHATASE 64 U/L (40-136); CREATININE SERUM 1.18 MG/DL (0.60-1.30); FIBRIN DEGRADATION PRODUCTS 0.82 UG/ML (0.00-0.49); GFR ESTIMATED 62; INR 1.3 (0.8-1.4); PROTHROMBIN TIME PATIENT 16.6 SEC (12.2-14.7)
[2021-11-19 18:17] LABS: BUN/CREATININE RATIO 13
[2021-11-19 18:19] LABS: ALANINE AMINOTRANSFERASE 14 U/L (0-55)
[2021-11-19 18:20] LABS: CREATINE KINASE 51 U/L (30-200)
[2021-11-19 18:27] LABS: CREATINE KINASE MB 1.5 NG/ML (<6.6)
--- NOTE | 2021-11-19 18:38 | ED General ---
General Chief Complaint: Dizziness/Syncope Stated Complaint: SYNCOPE,FALL Nursing Triage Note: PT ARRIVE VIA [facility] EMS FROM HOME. PT STATED THAT HE FELL EARLIER THAT DAY AND THEN FELL AGAIN. EMS STATED THAT WHEN THEY TRIED TO GET HIM UP HE HAD SYNCOPAL EPISODE. PT A/O ON ARRIVAL. BED RAILS UP AND CALL LIGHT IN PLACE. Source of Information: Patient (POOR HISTORIAN AND HARD OF HEARING) History of Present Illness Date Seen by Provider: Nov 19, 2021 Time Seen by Provider: 18:57 Initial Comments PT ARRIVES VIA EMS FROM HOME PT HAS HAD DIZZZINESS AND A FEW "FALLS" TODAY, EMS WITNESSED A BRIEF SYNCOPAL EPISODE WHEN THEY WERE TRYING TO GET HIM UP C/O RIGHT "HIP" PAIN, BUT POINTS TO RIGHT MID AND LOWER ABDOMEN AND RIGHT FLANK AREA OF PAIN PT UNAWARE THAT HE PASSED OUT DENIES HEAD PAIN DENIES NECK OR BACK PAIN NO NAUSEA/VOMITING PT IS ON ELIQUIS FOR ATRIAL FIBRILLATION ON ARRIVAL, O2 SATS 88%-90% ON ROOM AIR, AND BP 80'S/60'S PT HAS HAD COVID-19 VACCINE X 3--LAST ONE > 6 MONTHS AGO PCP: DR. TRUONG Allergies and Home Medications Allergies Coded Allergies: No Known Drug Allergies (Unverified , 01/29/19) Patient Home Medication List Acetaminophen (Tylenol Extra Strength) 500 Mg Tablet, 500-1,000 MG PO Q8H PRN for PAIN-MILD (1-4), (Reported) Entered as Reported by: TIFFANIE ALATORRE on 08/14/20 151 Amiodarone HCl (Amiodarone HCl) 200 Mg Tablet, 200 MG PO BID Prescribed by: IVY RODRIGUEZ on 08/28/20 135 Apixaban (Eliquis) 5 Mg Tablet, 5 MG PO BID Prescribed by: IVY RODRIGUEZ on 08/28/20 1352 Bumetanide (Bumetanide) 0.5 Mg Tablet, 0.5 MG PO DAILY, (Reported) Entered as Reported by: TIFFANIE ALATORRE on 08/14/20 151 Diclofenac Sodium (Voltaren) 100 Gm Gel..gram., 0 GM TOP QID PRN for PAIN- MODERATE (5-7) Prescribed by: ELDA LUNA on 08/28/202035 Doxycycline Hyclate (Doxycycline Hyclate) 100 Mg Tablet, 100 MG PO BID Prescribed by: NARAYAN GARBER on 09/01/202103 Hydroxychloroquine Sulfate (Hydroxychloroquine Sulfate) 200 Mg Tablet, 200 MG PO DAILY, (Reported) Entered as Reported by: TIFFANIE ALATORRE on 08/14/201513 Latanoprost (Xalatan) 2.5 Ml Drops, 1 DROP OU HS, (Reported) Entered as Reported by: TIFFANIE ALATORRE on 08/14/201513 Mirtazapine (Mirtazapine) 15 Mg Tab.rapdis, 7.5 MG PO HS Prescribed by: ELDA LUNA on 08/28/202035 Potassium Chloride (Klor-Con M20) 20 Meq Tab.er.prt, 20 MEQ PO DAILY@0700 Prescribed by: ELDA LUNA on 08/28/202035 Tamsulosin HCl (Flomax) 0.4 Mg Cap, 0.4 MG PO HS, (Reported) Entered as Reported by: TIFFANIE ALATORRE on 08/14/201513 Venlafaxine HCl (Venlafaxine HCl ER) 150 Mg Cap.er.24h, 300 MG PO DAILY, (Reported) Entered as Reported by: RAMIRO GARRISON on 01/29/19 150 Review of Systems Review of Systems Constitutional: dizziness, malaise, weakness EENTM: no symptoms reported Respiratory: see HPI; No cough, No short of breath Cardiovascular: No chest pain Gastrointestinal: see HPI, abdominal pain; No nausea, No vomiting Genitourinary: no symptoms reported Musculoskeletal: see HPI Skin: no symptoms reported Psychiatric/Neurological: See HPI; Denies Headache Hematologic/Lymphatic: See HPI Past Xpisrjm-Qflyri-Lqqhzt Hx Patient Social History Tobacco Use?: No Tobacco type used: Cigarettes Smoking Status: Former Smoker Substance use?: No Alcohol Use?: No Pt feels they are or have been: No Immunizations Up To Date Tetanus Booster (TDap): More than 5yrs Influenza Vaccine Up-to-Date: Yes; Up-to-Date Seasonal Allergies Seasonal Allergies: No Past Medical History Surgeries: Yes (BILAT RCR, HAND SURG, L TKR, THORACENTESIS;COLONOSCOPIES/POLYPECTOMY) Appendectomy, Gallbladder, Joint Replacement, Orthopedic Respiratory: Yes Pneumonia Cardiac: Yes Atrial Fibrillation, Chronic Edema/Swelling, High Cholesterol, Hypertension, Rheumatic Fever Neurological: No Reproductive Disorders: No Sexually Transmitted Disease: No Genitourinary: Yes ("KIDNEY PROBLEMS" ) Benign Prostatic Hyperpl, Bladder Infection, Renal Failure Gastrointestinal: Yes Gastroesophageal Reflux, Polyps Musculoskeletal: Yes (ROTATOR CUFF REPAIR, LEFT TOTAL KNEE REPLACEMENT, HAND SURGERY) Arthritis Endocrine: Yes (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) Lupus HEENT: No Cancer: No Psychosocial: Yes Anxiety, Depression Integumentary: Yes (CUTANEOUS LUPUS, 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) Blood Disorders: No Family Medical History SOCIAL HISTORY: -ETOH--HISTORY OF USE/ABUSE -DRUGS-DENIES USE -SMOKED 1 PPD X 30 YEARS, QUIT SEVERAL YEARS AGO PAST SURGICAL HISTORY: -BILATERAL ROTATOR CUFF REPAIR -HAND SURGERY -LEFT TOTAL KNEE REPLACEMENT -LEFT THORACENTESIS 10/2012 FOR PLEURAL EFFUSION -APPENDECTOMY -CHOLECYSTECTOMY ( GANGRENOUS GALLBLADDER) -COLONOSCOPY WITH POLYPECTOMY 2013 -BILATERAL CATARACT SURGERY Physical Exam Vital Signs Vital Signs - First Documented 11/19/21 11/19/21 17:30 18:20 Temp 36.1 Pulse 80 Resp 23 B/P (MAP) 120/76 (91) Pulse Ox 94 O2 Delivery Room Air O2 Flow Rate 2.00 Capillary Refill : Less Than 3 Seconds Height, Weight, BMI Height: '0" Weight: 230lbs. oz. 104.764707lq; 32.00 BMI Method:Stated General Appearance: No Apparent Distress, WD/WN, Other (LETHARGIC, HARD OF HEARING) HEENT: PERRL/EOMI, Other (NO EXTERNAL EVIDENCE OF TRAUMA TO HEAD) Neck: Normal Inspection Respiratory: Normal Breath Sounds (BUT DIMINISHED IN BASES BILATERALLY), No Accessory Muscle Use, No Respiratory Distress Cardiovascular: No JVD, Systolic Murmur (2/6 MURMUR), Irregularly Irregular Gastrointestinal: Soft, Tenderness (DIFFUSE RIGHT MID AND LOWER ABDOMEN AND RIGHT FLANK TENDERNESS. NO EXTERNAL EVIDENCE OF TRAUMA) Back: CVA Tenderness (R) Extremity: No Pedal Edema, Other (DIFFUSE RIGHT HIP AND RIGHT ILIAC CREST TENDERNESS. ) Neurologic/Psychiatric: Alert, Oriented x3, No Motor/Sensory Deficits, finishing department supervisor II- XII Norm as Tested, Other (FLAT AFFECT. SOMEWHAT LETHARGIC. ) Skin: Cool, Pallor Focused Exam Lactate Level 11/19/21 18:15: Lactic Acid Level 1.57 Lactic Acid Level Laboratory Tests Test 7/12/22 18:15 Lactic Acid Level 1.57 MMOL/L (0.50-2.00) Progress/Results/Core Measures Suspected Sepsis SIRS Temperature: Pulse: 80 Respiratory Rate: 23 Laboratory Tests 11/19/21 17:40: White Blood Count 15.8H Blood Pressure 120 /76 Mean: 91 11/19/21 18:15: Lactic Acid Level 1.57 Laboratory Tests 11/19/21 17:40: Creatinine 1.18, INR Comment 1.3, Platelet Count 207, Total Bilirubin 0.6 Results/Orders Lab Results Laboratory Tests Test 11/19/21 17:40 11/19/21 18:15 11/19/21 18:49 Range/Units White Blood Count 15.8 H 4.3-11.0 10^3/uL Red Blood Count 4.16 L 4.30-5.52 10^6/uL Hemoglobin 11.7 L 13.3-17.7 g/dL Hematocrit 38 L 40-54 % Mean Corpuscular Volume 92 80-99 fL Mean Corpuscular Hemoglobin 28 25-34 pg Mean Corpuscular Hemoglobin Concent 31 L 32-36 g/dL Red Cell Distribution Width 14.6 H 10.0-14.5 % Platelet Count 207 130-400 10^3/uL Mean Platelet Volume 12.8 H 9.0-12.2 fL Immature Granulocyte % (Auto) 0 % Neutrophils (%) (Auto) 80 H 42-75 % Lymphocytes (%) (Auto) 10 L 12-44 % Monocytes (%) (Auto) 7 0-12 % Eosinophils (%) (Auto) 3 0-10 % Basophils (%) (Auto) 1 0-10 % Neutrophils # (Auto) 12.6 H 1.8-7.8 10^3/uL Lymphocytes # (Auto) 1.6 1.0-4.0 10^3/uL Monocytes # (Auto) 1.1 H 0.0-1.0 10^3/uL Eosinophils # (Auto) 0.4 H 0.0-0.3 10^3/uL Basophils # (Auto) 0.1 0.0-0.1 10^3/uL Immature Granulocyte # (Auto) 0.1 0.0-0.1 10^3/uL Neutrophils % (Manual) 81 % Lymphocytes % (Manual) 11 % Monocytes % (Manual) 6 % Eosinophils % (Manual) 2 % Blood Morphology Comment NORMAL Erythrocyte Sedimentation Rate 43 H 0-30 MM/HR Prothrombin Time 16.6 H 12.2-14.7 SEC INR Comment 1.3 0.8-1.4 Activated Partial Thromboplast Time 36 H 24-35 SEC D-Dimer 0.82 H 0.00-0.49 UG/ML Sodium Level 136 135-145 MMOL/L Potassium Level 4.1 3.6-5.0 MMOL/L Chloride Level 104 98-107 MMOL/L Carbon Dioxide Level 22 21-32 MMOL/L Anion Gap 10 5-14 MMOL/L Blood Urea Nitrogen 15 7-18 MG/DL Creatinine 1.18 0.60-1.30 MG/DL Estimat Glomerular Filtration Rate 62 BUN/Creatinine Ratio 13 Glucose Level 179 H 70-105 MG/DL Calcium Level 8.6 8.5-10.1 MG/DL Corrected Calcium 9.0 8.5-10.1 MG/DL Magnesium Level 2.0 1.6-2.4 MG/DL Total Bilirubin 0.6 0.1-1.0 MG/DL Aspartate Amino Transf (AST/SGOT) 20 5-34 U/L Alanine Aminotransferase (ALT/SGPT) 14 0-55 U/L Alkaline Phosphatase 64 40-136 U/L Total Creatine Kinase 51 30-200 U/L Creatine Kinase MB 1.5 <6.6 NG/ML Myoglobin 122.2 H 10.0-92.0 NG/ML Troponin I < 0.028 <0.028 NG/ML C-Reactive Protein High Sensitivity 0.58 H 0.00-0.50 MG/DL B-Type Natriuretic Peptide 143.5 H <100.0 PG/ML Total Protein 6.6 6.4-8.2 GM/DL Albumin 3.5 3.2-4.5 GM/DL Procalcitonin 0.06 <0.10 NG/ML Free Thyroxine 0.63 L 0.70-1.48 NG/DL TSH [place] Testing 24.14 H 0.35-4.94 UIU/ML Lactic Acid Level 1.57 0.50-2.00 MMOL/L Influenza Type A (RT-PCR) Not Detected Not Detecte Influenza Type B (RT-PCR) Not Detected Not Detecte SARS-CoV-2 RNA (RT-PCR) Detected H Not Detecte Blood Gas Puncture Site RIGHT RADIAL Blood Gas Patient Temperature 36.1 Arterial Blood pH 7.42 7.37-7.43 Arterial Blood Partial Pressure CO2 35 35-45 MMHG Arterial Blood Partial Pressure O2 70 L 79-93 MMHG Arterial Blood HCO3 23 23-27 MMOL/L Arterial Blood Total CO2 23.8 21.0-31.0 MMOL/L Arterial Blood Oxygen Saturation 96 94-100 % Arterial Blood Base Excess -1.3 -2.5-2.5 MMOL/L Cristhian Test YES-POS Blood Gas Ventilator Setting NO Blood Gas Inspired Oxygen 2L My Orders Orders - RHONDA LINN DO Ed Iv/Invasive Line Start (11/19/21 17:57) O2 (11/19/21 17:57) Monitor-Rhythm Ecg Trace Only (11/19/21 17:57) Bnp Hale (11/19/21 17:57) Cbc With Automated Diff (11/19/21 17:57) Comprehensive Metabolic Panel (11/19/21 17:57) Creatine Kinase (11/19/21 17:57) Creatine Kinase Mb (11/19/21 17:57) Hs C Reactive Protein (11/19/21 17:57) Fibrin Degradation Products (11/19/21 17:57) Lactic Acid Analyzer (11/19/21 17:57) Magnesium (11/19/21 17:57) Procalcitonin (Pct) (11/19/21 17:57) Protime With Inr (11/19/21 17:57) Partial Thromboplastin Time (11/19/21 17:57) Thyroid Analyzer (11/19/21 17:57) Ua Culture If Indicated (11/19/21 17:57) Erythrocyte Sedimentation Rate (11/19/21 17:57) Myoglobin Serum (11/19/21 17:57) Troponin I Hale (11/19/21 17:57) Chest 1 View, Ap/Pa Only (11/19/21 17:57) Ct Head Wo-R/O Stroke (11/19/21 17:57) Covid 19 Inhouse Test (11/19/21 17:57) Influenza A And B By Pcr (11/19/21 17:57) Isolation Central Supply Req (11/19/21 17:57) Arterial Blood Gas (11/19/21 18:12) Manual Differential (11/19/21 17:40) Ct Cervical Spine Wo (11/19/21 18:31) Ct Thoracic/Lumbar Spine Wo (11/19/21 18:31) Ed Iv/Invasive Line Start (11/19/21 18:31) Ns Iv 1000 Ml (Sodium Chloride 0.9%) (11/19/21 18:45) Cefepime Injection (Maxipime Injection) (11/19/21 18:45) Free T4 (Free Thyroxine) (11/19/21 17:40) Ct Judie Chest/Noang Abd-Pelv W (11/19/21 19:09) Iohexol Injection (Omnipaque 350 Mg/Ml 1 (11/19/21 19:30) Ns (Ivpb) (Sodium Chloride 0.9% Ivpb Bag (11/19/21 19:30) Pelvis (11/19/21 18:15) Medications Given in ED Current Medications Medications Dose Ordered Sig/Gaby Route Start Time Stop Time Status Last Admin Dose Admin Cefepime HCl 1000 mg/Sodium Chloride 50 ml @ 100 mls/hr ONCE ONCE IV 11/19/21 18:45 11/19/21 19:14 DC 11/19/21 18:55 100 MLS/HR Iohexol 100 ml ONCE ONCE IV 11/19/21 19:30 11/19/21 19:31 DC 11/19/21 20:29 100 ML Sodium Chloride 100 ml ONCE ONCE IV 11/19/21 19:30 11/19/21 19:31 DC 11/19/21 20:29 70 ML Vital Signs/I&O 11/19/21 11/19/21 17:30 18:20 Temp 36.1 Pulse 80 Resp 23 B/P (MAP) 120/76 (91) Pulse Ox 94 O2 Delivery Room Air Nasal Cannula O2 Flow Rate 2.00 Capillary Refill : Less Than 3 Seconds Blood Pressure Mean: 91 Departure Communication (Admissions) 2053--SPOKE WITH DR. RAMIREZ, TRAUMA SURGEON, ADMIT TO MEDICINE AND HE WILL SEE PT IN CONSULT. Impression Primary Impression: COVID-19 virus infection Additional Impressions: Sepsis Syncope Hypotension CHRONIC ATRIAL FIBRILLATION ON ELIQUIS Lupus Acute respiratory failure with hypoxia Disposition: ADMITTED INPATIENT Condition: Stable Admissions Decision to Admit Reason: Admit from ER (Trauma) Decision to Admit/Date: Nov 19, 2021 Time/Decision to Admit Time: 20:55 Departure-Patient Inst. Referrals: DA TRUONG MD (PCP) Primary Care Physician RHONDA LINN DO Nov 19, 2021 18:38
[2021-11-19 18:40] LABS: TSH (THYROID ANALYZER) 24.14 UIU/ML (0.35-4.94)
[2021-11-19 18:41] LABS: EOSINOPHILS % (MANUAL) 2 %; ERYTHROCYTE SEDIMENTATION RATE 43 MM/HR (0-30); LYMPHOCYTES % (MANUAL) 11 %; MONOCYTES % (MANUAL) 6 %; NEUTROPHILS % (MANUAL) 81 %; RBC MORPH NORMAL
[2021-11-19] MEDS ORDERED: NS IV 1000 ML 1,000 ML IV SCH (18:45)
[2021-11-19] MEDS ORDERED: CEFEPIME INJECTION 1,000 MG in NS (IVPB) 50 ML IV ONE (18:45)
[2021-11-19 19:15] LABS: FREE T4 (FREE THYROXINE) 0.63 NG/DL (0.70-1.48)
[2021-11-19 19:21] LABS: ABG BASE EXCESS -1.3 MMOL/L (-2.5-2.5); ABG OXYGEN SATURATION 96 % (94-100); ABG PCO2 35 MMHG (35-45); ABG PH 7.42 (7.37-7.43); ABG PO2 70 MMHG (79-93); ABG TCO2 23.8 MMOL/L (21.0-31.0); ALLENS TEST YES-POS; INSPIRED O2 2L; PATIENT TEMP 36.1; VENTILATOR NO
[2021-11-19] MEDS ORDERED: IOHEXOL 350 MG/ML 100 ML (OMNIPAQUE 350) VIAL IV ONE (19:30)
[2021-11-19] MEDS ORDERED: NS 100 ML (IVPB) BAG IV ONE (19:30)
--- NOTE | 2021-11-19 20:34 | Diagnostic Imaging Report ---
EXAMINATION: CT head without contrast. TECHNIQUE: Multiple contiguous axial images were obtained through the brain without the use of intravenous contrast. All CT scans use one or more of the following dose optimizing techniques: automated exposure control, MA and/or KvP adjustment based on patient size and exam type or iterative reconstruction. HISTORY: Fall. Syncopal episode. COMPARISON: 08/13/2020. FINDINGS: No large acute territorial ischemia, mass, or hemorrhage. No midline shift or mass effect. Decreased attenuation is seen in the periventricular and subcortical white matter. The ventricles and cortical sulci are prominent. The basilar cisterns are patent and unremarkable. The orbits are normal. Retained secretions are seen in the left maxillary sinus. Mastoid air cells are clear. No soft tissue abnormality is seen. No osseus lesions or fractures are seen. IMPRESSION: 1. No large acute territorial ischemia, mass, or hemorrhage. 2. Chronic microvascular disease. 3. Generalized parenchymal volume loss. Dictated by: Dictated on workstation # [id number]
--- NOTE | 2021-11-19 20:35 | Diagnostic Imaging Report ---
EXAMINATION: Chest 1 view HISTORY: Syncopal episode. False. COMPARISON: 10/15/2021. FINDINGS: There is cardiomegaly with central pulmonary vascular congestion and likely interstitial edema. No large pleural effusion or pneumothorax. IMPRESSION: 1. Cardiomegaly with central pulmonary vascular congestion and likely interstitial edema. Dictated by: Dictated on workstation # [id number]
--- NOTE | 2021-11-19 20:36 | Diagnostic Imaging Report ---
PROCEDURE: CT cervical spine without contrast. TECHNIQUE: Multiple contiguous axial images were obtained through the cervical spine without the use of intravenous contrast. Sagittal and coronal reformations were then performed. Auto Exposure Controls were utilized during the CT exam to meet ALARA standards for radiation dose reduction. INDICATION: Fall. Neck pain. COMPARISON: None. FINDINGS: No acute fracture or dislocation is seen in the cervical spine. The craniocervical junction is intact. There is straightening of the cervical spine. No suspicious focal osseous lesions. No evidence of acute spinal canal stenosis. The soft tissues of the neck are unremarkable. IMPRESSION: No acute fracture or dislocation in the cervical spine. Dictated by: Dictated on workstation # [id number]
--- NOTE | 2021-11-19 20:39 | Diagnostic Imaging Report ---
PROCEDURE: CT thoracic and lumbar spine without contrast. TECHNIQUE: Multiple contiguous axial images were obtained through the thoracic and lumbar spine without the use of intravenous contrast. Sagittal and coronal reformations were then performed. All CT scans use one or more of the following dose optimizing techniques: automated exposure control, MA and/or KvP adjustment based on a patient size and exam type, or iterative reconstruction. INDICATION: Fall. Mid and lower back pain. COMPARISON: 10/10/2014. FINDINGS: No acute fracture or dislocation is seen in the thoracic and lumbar spine. Prior kyphoplasty changes are seen at T11, T12, and L3. There is grade 2 anterolisthesis of L5 on S1. Right convexity curvature of the thoracic spine is seen. No suspicious focal osseous lesions. No evidence of acute spinal canal stenosis. Dependent opacities are seen in the lungs. The paraspinal soft tissues are unremarkable. IMPRESSION: 1. No acute fracture or dislocation in the thoracic and lumbar spine. 2. Prior kyphoplasty changes at T11, T12, and L3. 3. Grade 2 anterolisthesis of L5 on S1. Dictated by: Dictated on workstation # [id number]
--- NOTE | 2021-11-19 20:47 | Diagnostic Imaging Report ---
INDICATION: Syncopal episode. Fall. COVID positive. Torso bruising. CTA chest, abdomen and pelvis Thin axial sections through the chest, abdomen and pelvis are obtained following intravenous contrast bolus. Multiplanar MIP images were reconstructed and reviewed. All CT scans use one or more of the following dose optimizing techniques: automated exposure control, MA and/or KvP adjustment based on patient size and exam type or iterative reconstruction. COMPARISON: 10/10/2014.. CTA chest: No evidence of pulmonary emboli to the subsegmental pulmonary arteries. The heart size is mildly prominent. No pericardial effusion is present. There is no mediastinal, hilar, or axillary lymphadenopathy. The lung windows demonstrate no pulmonary nodules or masses. There are no focal areas of consolidation. A small amount of dependent opacities are seen in the lung bases. No pneumothoraces are present. No central endobronchial obstructing lesions are identified. There are no pleural effusions. CT abdomen and pelvis: Hypoattenuating lesion is seen in the dome of the liver measuring 5.2 x 4.5 cm with scattered areas of internal enhancement. The liver has a nodular contour. The gallbladder is surgically absent. The portal vein is patent. The spleen, pancreas, adrenal glands, and kidneys have a normal appearance. There is no pathologically enlarged mesenteric or retroperitoneal adenopathy. The bowel loops are nondilated. There is no free fluid or free air. Prominent hematoma is seen along the lateral aspect of the lower right chest and along the right hemiabdomen. Hematoma with active bleeding is seen measuring approximately 17.1 x 3.7 cm and 10.7 cm craniocaudal. Ureters and bladder are grossly normal. There is no free air, loculated collection, or adenopathy in the pelvis. No evidence of pelvic fracture. IMPRESSION: 1. Large soft tissue hematoma with active bleeding involving the lateral aspect of the right hemiabdomen and lower right chest. 2. No evidence of pulmonary emboli. 3. Nonspecific lesion in the dome of the liver measuring 5.2 x 4.5 cm with internal enhancement. Recommend follow-up with outpatient liver protocol CT or MRI to further evaluate given the possible cirrhotic morphology of the liver. 4. Mild cardiomegaly. Dictated by: Dictated on workstation # [id number]
--- NOTE | 2021-11-19 20:50 | Diagnostic Imaging Report ---
CLINICAL HISTORY: Fall. Right hip pain. COMPARISON: 10/13/2020. TECHNIQUE: Single AP view of the pelvis was obtained. FINDINGS: There is no acute fracture or dislocation of the pelvis and bilateral hips. Alignment is anatomic. The imaged joint spaces are preserved. IMPRESSION: 1. No acute fracture or dislocation in the pelvis and bilateral hips. Dictated by: Dictated on workstation # [id number]
[2021-11-19] MEDS ORDERED: HUMAN PROTHROMBIN COMPLX(PCC) 500 UNIT (KCENTRA) IV ONE (21:30)
[2021-11-19] MEDS ORDERED: fentaNYL INJ 100 MCG/2 ML AMP IVP ONE (21:45)
[2021-11-19] MEDS: NS IV 1000 ML 1,000 ML IV SCH (22:41)
[2021-11-20 00:30] VITALS: BP 120/76
[2021-11-20] MEDS ORDERED: fentaNYL INJ 100 MCG/2 ML AMP IV PRN (00:30)
[2021-11-20] MEDS ORDERED: ONDANSETRON 4 MG/2 ML (SDV) Z0FRAN IV PRN (00:30)
[2021-11-20] MEDS ORDERED: ACETAMINOPHEN 500 MG TAB (TYLENOL) PO PRN (00:30)
[2021-11-20] MEDS ORDERED: EPINEPHrine 1 MG INJECTION 4 MG in NS (IVPB) 248 ML IV SCH (01:00)
[2021-11-20] MEDS ORDERED: RT-ALBUTEROL SULF 2.5 MG/3 ML PRE-MIX VIAL IH PRN (01:15)
[2021-11-20] MEDS: NOREPINEPHRINE 8 MG/250 ML 250 ML IV SCH ×3 (01:54→19:51)
[2021-11-20] MEDS: VASOPRESSIN INJECTION 20 UNIT in NS (IVPB) 100 ML IV SCH ×3 (01:54→19:51)
--- NOTE | 2021-11-20 02:08 | Tele-ICU Progress Note ---
Progress Note 81M presented with dizziness, syncope with several falls prior to admission. CT with hematoma with active bleeding in the upper abd/low chest region. COVID +. Currently HD stable. - hematoma: with active bleed noted on CT. Repeat H&H ordered and pending. Hopefully wll self tamponade. Initial Hg 11. - coagulopathy: secondary to ekiquis/afib. Given Kcentra in ED in setting of active bleed. - falls: no injury on imaging. Trauma consulted for AM. - COVID: SpO2 99% on 2L. - sepsis: will send blood cultures, UA ordered. Empiric abx initiated. Focused Exam Lactate Level 11/19/21 18:15: Lactic Acid Level 1.57 Height, Weight, BMI Height: '0" Weight: 230lbs. oz. 104.575637jb; 32.52 BMI Method:Stated GISELLE ALBARRAN MD Nov 20, 2021 02:08
[2021-11-20 02:29] LABS: BASOPHILS % (AUTO) 0 % (0-10); EOSINOPHILS % (AUTO) 0 % (0-10); HEMATOCRIT 33 % (40-54); HEMOGLOBIN 10.1 g/dL (13.3-17.7); LYMPHOCYTES # (AUTO) 0.7 10^3/uL (1.0-4.0); LYMPHOCYTES % (AUTO) 5 % (12-44); MEAN CORPUSCULAR HEMOGLOBIN 29 pg (25-34); MEAN CORPUSCULAR HGB CONC 30 g/dL (32-36); MEAN CORPUSCULAR VOLUME 95 fL (80-99); MEAN PLATELET VOLUME 12.5 fL (9.0-12.2); MONOCYTES # (AUTO) 0.8 10^3/uL (0.0-1.0); MONOCYTES % (AUTO) 6 % (0-12); NEUTROPHILS # (AUTO) 11.5 10^3/uL (1.8-7.8); NEUTROPHILS % (AUTO) 88 % (42-75); PLATELET COUNT 186 10^3/uL (130-400)
[2021-11-20 02:50] LABS: ALBUMIN 3.3 GM/DL (3.2-4.5); BILIRUBIN,TOTAL 0.6 MG/DL (0.1-1.0); CALCIUM 8.3 MG/DL (8.5-10.1); CREATININE SERUM 1.27 MG/DL (0.60-1.30); PHOSPHORUS 3.9 MG/DL (2.3-4.7); POTASSIUM 4.9 MMOL/L (3.6-5.0); TOTAL PROTEIN 6.1 GM/DL (6.4-8.2)
[2021-11-20] MEDS: CEFEPIME INJECTION 1,000 MG in NS (IVPB) 50 ML IV SCH ×4 (02:54→21:28)
[2021-11-20] MEDS: NS IV 1000 ML 1,000 ML IV SCH ×6 (02:56→22:16)
--- NOTE | 2021-11-20 07:20 | Diagnostic Imaging Report ---
INDICATION: COVID 19 positive. Time of Exam: 6:18 AM Correlation is made with prior chest one day earlier. Heart is enlarged. There may be some infiltrate in left base obscuring left hemidiaphragm. Right lung appears clear. No significant effusion or pneumothorax is seen. IMPRESSION: Stable chest. There is cardiomegaly and questionable infiltrate in the left base. Dictated by: Dictated on workstation # [id number]
[2021-11-20 09:03] LABS: HEMATOCRIT 32 % (40-54); MEAN CORPUSCULAR HEMOGLOBIN 29 pg (25-34); MEAN CORPUSCULAR HGB CONC 31 g/dL (32-36); MEAN CORPUSCULAR VOLUME 92 fL (80-99); PLATELET COUNT 178 10^3/uL (130-400)
--- NOTE | 2021-11-20 10:13 | Tele-ICU Progress Note ---
Subjective Date Seen by a Provider: Nov 20, 2021 Time Seen by a Provider: 10:12 Subjective/Events-last exam (Tele-ICU Physician , Progress Note ) Available chart/ vitals / labs / Images reviewed Video assessment done using teleICU camera, rest of exam as per RN Discussed with RN , EXAM PER RN Events overnight : Afebrile FiO2 - 2l I/O = Drips: 125 ns Pressors: , hemodynamically stable Consultants: Sx Hospital course: (11/20) 81/M admitted for sepsis pneumonia and s/p fall at home, syncopal episode. A/P Hematoma upper abdomen with active bleed noted on CT on face of AC - follow H&H ,. Initial Hg 11 - sx consulted Coagulopathy on Eliquis for afib. -Given Kcentra in ED A fib - sinus now, rate controlled , resume AC when ok with Sx S/p falls -no injury on imaging. Trauma consulted COVID: SpO2 99% on 2L - CTA chest - no PE , no classic Covid lung finding - no need for steroids or antivirals Suspected sepsis: -pending blood cultures, UA ordered. Empiric abx initiated - follow Will decrease/stop IVF if ok to take PO Anxiety/ delirium VTE Prophylaxis: scde Stress Ulcer Prophylaxis: na Plans in collaboration with bedside consultants and IM MDs. Discussed with RN t reach out if any questions or concerns A total of 25 minutes of critical care time was devoted to this patient today, required to treat and/or prevent further deterioration of critical care condition ( as above) . Sepsis Event Evaluation Height, Weight, BMI Height: '0" Weight: 230lbs. oz. 104.666371wb; 32.52 BMI Method:Stated Focused Exam Lactate Level 11/19/21 18:15: Lactic Acid Level 1.57 Exam Exam Patient acknowledged, consented, and participated in this virtual visit which was conducted using real time audio/video Vital Signs Date Time Temp Pulse Resp B/P (MAP) Pulse Ox O2 Delivery O2 Flow Rate FiO2 11/20/21 10:00 70 25 133/72 95 Nasal Cannula 2.00 11/20/21 09:00 63 25 119/68 97 Nasal Cannula 2.00 11/20/21 08:00 66 15 120/70 96 Nasal Cannula 2.00 11/20/21 08:00 36.0 11/20/21 07:00 68 15 126/73 97 Nasal Cannula 2.00 11/20/21 07:00 66 11/20/21 06:00 67 15 116/70 97 Nasal Cannula 2.00 11/20/21 05:00 82 25 150/81 94 Nasal Cannula 2.00 11/20/21 04:00 36.4 11/20/21 04:00 70 20 107/69 94 Nasal Cannula 2.00 11/20/21 04:00 Nasal Cannula 2.00 11/20/21 03:00 76 30 117/73 96 Nasal Cannula 2.00 11/20/21 02:14 71 26 112/65 98 Nasal Cannula 2.00 11/20/21 02:00 74 11/20/21 01:27 36.1 11/20/21 01:06 74 24 97/64 98 Nasal Cannula 2.00 11/20/21 00:50 Nasal Cannula 2.00 11/20/21 00:30 36.1 80 94 28 11/20/21 00:13 80 11/20/21 00:12 75 21 118/76 97 Nasal Cannula 2.00 11/20/21 00:00 36.2 11/19/21 23:42 36.1 78 20 96/58 97 Nasal Cannula 2.00 11/19/21 18:20 Nasal Cannula 2.00 11/19/21 17:30 36.1 80 23 120/76 (91) 94 Room Air I & O 11/20/21 07:00 Intake Total 1070 ml Output Total 400 ml Balance 670 ml Height & Weight Height: '0" Weight: 230lbs. oz. 104.342561jn; 32.52 BMI Method:Stated General Appearance: No Apparent Distress, WD/WN, Other (LETHARGIC, HARD OF HEARING) HEENT: PERRL/EOMI, Other (NO EXTERNAL EVIDENCE OF TRAUMA TO HEAD) Neck: Normal Inspection Respiratory: Normal Breath Sounds (BUT DIMINISHED IN BASES BILATERALLY), No Accessory Muscle Use, No Respiratory Distress Cardiovascular: No JVD, Systolic Murmur (2/6 MURMUR), Irregularly Irregular Capillary Refill: Less Than 3 Seconds Extremity: No Pedal Edema, Other (DIFFUSE RIGHT HIP AND RIGHT ILIAC CREST TENDERNESS. ) Neurologic/Psychiatric: Alert, Oriented x3, No Motor/Sensory Deficits, brand development manager II- XII Norm as Tested, Other (FLAT AFFECT. SOMEWHAT LETHARGIC. ) Skin: Cool, Pallor Results Lab Laboratory Tests 11/19/21 17:40 11/20/21 02:04 11/20/21 08:10 Assessment/Plan Assessment/Plan 1 ANDRÉS GUZMÁN MD Nov 20, 2021 10:13
[2021-11-20 10:46] LABS: BILIRUBIN,URINE NEGATIVE (NEGATIVE); CLARITY,URINE CLEAR; COLOR,URINE YELLOW; GLUCOSE, URINE (UA) NEGATIVE (NEGATIVE); KETONES,URINE NEGATIVE (NEGATIVE); LEUKOCYTE ESTERASE ,URINE NEGATIVE (NEGATIVE); NITRITE,URINE NEGATIVE (NEGATIVE); PH,URINE 5.5 (5-9); PROTEIN,URINE 1+ (NEGATIVE)
[2021-11-20 11:01] LABS: BACTERIA,URINE NEGATIVE /HPF
--- NOTE | 2021-11-20 12:03 | Consultation - Surgery ---
MYA BAKER 11/20/21 1203: History of Present Illness History of Present Illness Patient Consulted On(sangeeta/time) 11/20/21 12:03 Date Seen by Provider: Nov 20, 2021 Time Seen by Provider: 07:01 Reason for Visit: Abdominal bleeding History of Present Illness Mr. Lutz is an 81 year old male with a past medical history of atrial fibrillation for which he takes apixaban who presented to the ED after a fall. General surgery was consulted for a hematoma seen on CT with active bleeding. Patient reports he was doing PT exercises that consisted of standing up and sitting down when he lost his balance and fell on his right hip. He does not think he lost consciousness. He reports pain in his RUQ around midaxillary- midclavicular line. He says the pain is a sharp pain with movement but it does not hurt him at rest. Rest makes it better; movement makes it worse. He denies radiation of the pain. He says it is a 10/10 when it is hurting him. Patient is COVID positive. Allergies and Home Medications Allergies Coded Allergies: No Known Drug Allergies (Unverified , 01/29/19) Patient Home Medication List Amiodarone HCl (Amiodarone HCl) 200 Mg Tablet, 100 MG PO DAILY, (Reported) Entered as Reported by: TIFFANIE ALATORRE on 11/20/211547 Last Action: Reviewed Apixaban (Eliquis) 5 Mg Tablet, 5 MG PO BID, (Reported) Entered as Reported by: TIFFANIE ALATORRE on 11/20/211547 Last Action: Reviewed Bumetanide (Bumetanide) 0.5 Mg Tablet, 0.5 MG PO DAILY, (Reported) Entered as Reported by: TIFFANIE ALATORRE on 08/14/201513 Last Action: Reviewed Docusate Sodium (Docusate Sodium) 100 Mg Capsule, 100 MG PO DAILY, (Reported) Entered as Reported by: TIFFANIE ALATORRE on 11/20/211547 Last Action: Reviewed Hydroxychloroquine Sulfate (Hydroxychloroquine Sulfate) 200 Mg Tablet, 200 MG PO DAILY, (Reported) Entered as Reported by: TIFFANIE ALATORRE on 08/14/201513 Last Action: Reviewed Mirtazapine (Mirtazapine) 7.5 Mg Tablet, 7.5 MG PO HS, (Reported) Entered as Reported by: TIFFANIE ALATORRE on 11/20/211547 Last Action: Reviewed Potassium Chloride (Klor-Con M20) 20 Meq Tab.er.prt, 20 MEQ PO DAILY, (Reported) Entered as Reported by: TIFFANIE ALATORRE on 11/20/211547 Last Action: Reviewed Psyllium Husk (Metamucil) 0.4 Gram Capsule, 0.4 GM PO BID, (Reported) Entered as Reported by: TIFFANIE ALATORRE on 11/20/211547 Last Action: Reviewed Tamsulosin HCl (Flomax) 0.4 Mg Cap, 0.4 MG PO 1800, (Reported) Entered as Reported by: TIFFANIE ALATORRE on 08/14/201513 Last Action: Reviewed Venlafaxine HCl (Venlafaxine HCl ER) 150 Mg Cap.er.24h, 150 MG PO DAILY, (Reported) Entered as Reported by: RAMIRO GARRISON on 01/29/19 150 Last Action: Reviewed Discontinued Medications Acetaminophen (Tylenol Extra Strength) 500 Mg Tablet, 500-1,000 MG PO Q8H PRN for PAIN-MILD (1-4), (Reported) Discontinued Reason: Duplicate Order Entered as Reported by: TIFFANIE ALATORRE on 08/14/201513 Last Action: Discontinued Amiodarone HCl (Amiodarone HCl) 200 Mg Tablet, 200 MG PO BID Discontinued Reason: Duplicate Order Prescribed by: IVY RODRIGUEZ on 08/28/20 135 Last Action: Discontinued Apixaban (Eliquis) 5 Mg Tablet, 5 MG PO BID Discontinued Reason: Duplicate Order Prescribed by: IVY RODRIGUEZ on 08/28/20 135 Last Action: Discontinued Diclofenac Sodium (Voltaren) 100 Gm Gel..gram., 0 GM TOP QID PRN for PAIN- MODERATE (5-7) Discontinued Reason: No Longer Taking Prescribed by: ELDA LUNA on 08/28/202035 Last Action: Discontinued Doxycycline Hyclate (Doxycycline Hyclate) 100 Mg Tablet, 100 MG PO BID Discontinued Reason: Duplicate Order Prescribed by: NARAYAN GARBER on 09/01/202103 Last Action: Discontinued Latanoprost (Xalatan) 2.5 Ml Drops, 1 DROP OU HS, (Reported) Discontinued Reason: No Longer Taking Entered as Reported by: TIFFANIE ALATORRE on 08/14/20 1514 Last Action: Discontinued Mirtazapine (Mirtazapine) 15 Mg Tab.rapdis, 7.5 MG PO HS Discontinued Reason: Duplicate Order Prescribed by: ELDA LUNA on 08/28/202035 Last Action: Discontinued Potassium Chloride (Klor-Con M20) 20 Meq Tab.er.prt, 20 MEQ PO DAILY@0700 Discontinued Reason: Duplicate Order Prescribed by: ELDA LUNA on 08/28/202035 Last Action: Discontinued Past Dmxhmfp-Mdkipy-Ajzpir Hx Patient Social History Drug of Choice: DENIES Smoking Status: Former Smoker (Smoked 1 PPD for "40 mary lou" years. Reports he quick 30-40 years ago.) Former Smoker, Quit: Jan 31, 1985 Type Used: Cigarettes Recent Hopitalizations: No Alcohol Use?: No Have you traveled recently?: No Immunizations Up To Date Tetanus Booster (TDap): More than 5yrs Date of Pneumonia Vaccine: Mar 12, 2009 Date of Influenza Vaccine: Feb 09, 2020 Seasonal Allergies Seasonal Allergies: No Surgeries History of Surgeries: Yes (BILAT RCR, HAND SURG, L TKR, THORACENTESIS;COLONOSCOPIES/POLYPECTOMY) Surgeries: Appendectomy, Gallbladder, Joint Replacement, Orthopedic Respiratory History of Respiratory Disorde: Yes Respiratory Disorders: Pneumonia Cardiovascular History of Cardiac Disorders: Yes Cardiac Disorders: Atrial Fibrillation, Chronic Edema/Swelling, High Cholesterol, Hypertension, Rheumatic Fever Neurological History of Neurological Disord: No Reproductive System Hx Reproductive Disorders: No Sexually Transmitted Disease: No Genitourinary History of Genitourinary Disor: Yes ("KIDNEY PROBLEMS" ) Genitourinary Disorders: Benign Prostatic Hyperpl, Bladder Infection, Renal Failure Gastrointestinal History of Gastrointestinal Di: Yes Gastrointestinal Disorders: Gastroesophageal Reflux, Polyps Musculoskeletal History of Musculoskeletal Dis: Yes (ROTATOR CUFF REPAIR, LEFT TOTAL KNEE REPLACEMENT, HAND SURGERY) Musculoskeletal Disorders: Arthritis Endocrine History of Endocrine Disorders: Yes (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) Endocrine Disorders: Lupus HEENT History of HEENT Disorders: No Cancer History of Cancer: No Psychosocial History of Psychiatric Problem: Yes Behavioral Health Disorders: Anxiety, Depression Integumentary History of Skin or Integumenta: Yes (CUTANEOUS LUPUS, 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) Blood Transfusions History of Blood Disorders: No Family Medical History Significant Family History: Diabetes (Sister) Review of Systems-General Constitutional: No dizziness, No fever EENTM: No blurred vision, No double vision Respiratory: No cough, No dyspnea on exertion Cardiovascular: No chest pain Gastrointestinal: abdominal pain; No nausea, No vomiting Musculoskeletal: joint swelling, muscle pain Physical Exam-General Problems Physical Exam Vital Signs Vital Signs - First Documented 11/19/21 11/19/21 11/20/21 17:30 18:20 00:30 Temp 36.1 Pulse 80 Resp 23 B/P (MAP) 120/76 (91) Pulse Ox 94 O2 Delivery Room Air O2 Flow Rate 2.00 FiO2 28 Capillary Refill : Less Than 3 Seconds General Appearance: WD/WN, no apparent distress HEENT: PERRL/EOMI; No scleral icterus (R), No scleral icterus (L) Neck: non-tender, supple Respiratory: chest non-tender, lungs clear, no respiratory distress, no accessory muscle use Cardiovascular: normal peripheral pulses, regular rate, rhythm Peripheral Pulses: 2+ Radial Pulses (R), 2+ Radial Pulses (L) Gastrointestinal: normal bowel sounds, no pulsatile mass, distended (Distension in RUQ in midclavicular-midaxillary line. Firm.) Extremities: non-tender, no pedal edema Neurologic/Psychiatric: no motor/sensory deficits, alert, normal mood/affect Skin: normal color, warm/dry Data Review Labs Laboratory Tests 11/19/21 17:40: White Blood Count 15.8H, Red Blood Count 4.16L, Hemoglobin 11.7L, Hematocrit 38L , Mean Corpuscular Volume 92, Mean Corpuscular Hemoglobin 28, Mean Corpuscular Hemoglobin Concent 31L, Red Cell Distribution Width 14.6H, Platelet Count 207, Mean Platelet Volume 12.8H, Immature Granulocyte % (Auto) 0, Neutrophils (%) (Auto) 80H, Lymphocytes (%) (Auto) 10L, Monocytes (%) (Auto) 7, Eosinophils (%) (Auto) 3, Basophils (%) (Auto) 1, Neutrophils # (Auto) 12.6H, Lymphocytes # (Auto) 1.6, Monocytes # (Auto) 1.1H, Eosinophils # (Auto) 0.4H, Basophils # (Auto) 0.1, Immature Granulocyte # (Auto) 0.1, Neutrophils % (Manual) 81, Lymphocytes % (Manual) 11, Monocytes % (Manual) 6, Eosinophils % (Manual) 2, Blood Morphology Comment NORMAL, Erythrocyte Sedimentation Rate 43H, Prothrombin Time 16.6H, INR Comment 1.3, Activated Partial Thromboplast Time 36H, D-Dimer 0.82H, Sodium Level 136, Potassium Level 4.1, Chloride Level 104, Carbon Dioxide Level 22, Anion Gap 10, Blood Urea Nitrogen 15, Creatinine 1.18, Estimat Glomerular Filtration Rate 62, BUN/Creatinine Ratio 13, Glucose Level 179H, Calcium Level 8.6, Corrected Calcium 9.0, Magnesium Level 2.0, Total Bilirubin 0.6, Aspartate Amino Transf (AST/SGOT) 20, Alanine Aminotransferase (ALT/SGPT) 14, Alkaline Phosphatase 64, Total Creatine Kinase 51, Creatine Kinase MB 1.5, Myoglobin 122.2H, Troponin I < 0.028, C-Reactive Protein High Sensitivity 0.58H, B-Type Natriuretic Peptide 143.5H, Total Protein 6.6, Albumin 3.5, Procalcitonin 0.06, Free Thyroxine 0.63L, TSH [facility] Testing 24.14H 11/19/21 18:15: Lactic Acid Level 1.57, Influenza Type A (RT-PCR) Not Detected, Influenza Type B (RT-PCR) Not Detected, SARS-CoV-2 RNA (RT-PCR) DetectedH 11/19/21 18:49: Blood Gas Puncture Site RIGHT RADIAL, Blood Gas Patient Temperature 36.1, Arterial Blood pH 7.42, Arterial Blood Partial Pressure CO2 35, Arterial Blood Partial Pressure O2 70L, Arterial Blood HCO3 23, Arterial Blood Total CO2 23.8, Arterial Blood Oxygen Saturation 96, Arterial Blood Base Excess -1.3, Cristhian Test YES-POS, Blood Gas Ventilator Setting NO, Blood Gas Inspired Oxygen 2L 11/20/21 02:04: White Blood Count 13.0H, Red Blood Count 3.51L, Hemoglobin 10.1L, Hematocrit 33L , Mean Corpuscular Volume 95, Mean Corpuscular Hemoglobin 29, Mean Corpuscular Hemoglobin Concent 30L, Red Cell Distribution Width 14.7H, Platelet Count 186, Mean Platelet Volume 12.5H, Immature Granulocyte % (Auto) 1, Neutrophils (%) (Auto) 88H, Lymphocytes (%) (Auto) 5L, Monocytes (%) (Auto) 6, Eosinophils (%) (Auto) 0, Basophils (%) (Auto) 0, Neutrophils # (Auto) 11.5H, Lymphocytes # (Auto) 0.7L, Monocytes # (Auto) 0.8, Eosinophils # (Auto) 0.0, Basophils # (Auto) 0.0, Immature Granulocyte # (Auto) 0.1, Sodium Level 137, Potassium Level 4.9, Chloride Level 107, Carbon Dioxide Level 18L, Anion Gap 12, Blood Urea Nitrogen 17, Creatinine 1.27, Estimat Glomerular Filtration Rate 57, BUN/Creatinine Ratio 13, Glucose Level 135H, Calcium Level 8.3L, Corrected Calcium 8.9, Magnesium Level 2.0, Total Bilirubin 0.6, Aspartate Amino Transf (AST/SGOT) 19, Alanine Aminotransferase (ALT/SGPT) 18, Alkaline Phosphatase 58, Total Protein 6.1L, Albumin 3.3, Phosphorus Level 3.9 11/20/21 08:10: White Blood Count 10.0, Red Blood Count 3.46L, Hemoglobin 10.0L, Hematocrit 32L, Mean Corpuscular Volume 92, Mean Corpuscular Hemoglobin 29, Mean Corpuscular Hemoglobin Concent 31L, Red Cell Distribution Width 14.8H, Platelet Count 178, Mean Platelet Volume 13.0H Radiology Date of Exam:11/19/21 CT JOAQU[facility]N CHEST/NOANG ABD-PELV W INDICATION: Syncopal episode. Fall. COVID positive. Torso bruising. CTA chest, abdomen and pelvis Thin axial sections through the chest, abdomen and pelvis are obtained following intravenous contrast bolus. Multiplanar MIP images were reconstructed and reviewed. All CT scans use one or more of the following dose optimizing techniques: automated exposure control, MA and/or KvP adjustment based on patient size and exam type or iterative reconstruction. COMPARISON: 10/10/2014.. CTA chest: No evidence of pulmonary emboli to the subsegmental pulmonary arteries. The heart size is mildly prominent. No pericardial effusion is present. There is no mediastinal, hilar, or axillary lymphadenopathy. The lung windows demonstrate no pulmonary nodules or masses. There are no focal areas of consolidation. A small amount of dependent opacities are seen in the lung bases. No pneumothoraces are present. No central endobronchial obstructing lesions are identified. There are no pleural effusions. CT abdomen and pelvis: Hypoattenuating lesion is seen in the dome of the liver measuring 5.2 x 4.5 cm with scattered areas of internal enhancement. The liver has a nodular contour. The gallbladder is surgically absent. The portal vein is patent. The spleen, pancreas, adrenal glands, and kidneys have a normal appearance. There is no pathologically enlarged mesenteric or retroperitoneal adenopathy. The bowel loops are nondilated. There is no free fluid or free air. Prominent hematoma is seen along the lateral aspect of the lower right chest and along the right hemiabdomen. Hematoma with active bleeding is seen measuring approximately 17.1 x 3.7 cm and 10.7 cm craniocaudal. Ureters and bladder are grossly normal. There is no free air, loculated collection, or adenopathy in the pelvis. No evidence of pelvic fracture. IMPRESSION: 1. Large soft tissue hematoma with active bleeding involving the lateral aspect of the right hemiabdomen and lower right chest. 2. No evidence of pulmonary emboli. 3. Nonspecific lesion in the dome of the liver measuring 5.2 x 4.5 cm with internal enhancement. Recommend follow-up with outpatient liver protocol CT or MRI to further evaluate given the possible cirrhotic morphology of the liver. 4. Mild cardiomegaly. Assessment/Plan Assessment/Plan Assessment/Plan Possible syncopal episode Dizziness Fall Hematoma with active bleeding measures 17 x 4 x 10 on imaging Hgb steady at 10 Atrial fibrillation maintained on apixaban Plan: Patient in ICU Maintain neuro checks as needed Continue cefepime Monitor Hgb and monitor for signs of active bleeding Hold anticoagulation Plan to move to SARA RAMIREZ 11/20/211925: History of Present Illness History of Present Illness History of Present Illness Patient is a 81-year-old male who has been having some syncopal episodes. He was working on some physical therapy exercises and sitting in chair when he started to fall over slightly and struck his right flank on a TV stand. Patient did not have any loss of consciousness was having some slight right flank pain due to the striking on the TV stand. He continued to do some activities but then started to get a little bit of a blackout he states. He states that he then had EMS take him to the emergency department for further evaluation. Patient with moderate to severe right flank pain area. Movement makes the area worse. Nothing really makes it better except for resting. splitting machine tender to touch. Patient is on Eliquis and this is for atrial fibrillation. Patient also positive for COVID. All of his imaging would right abdominal/flank hematoma with some active extravasation, liver lesion, CTs of the spine and cervical spine no acute traumatic injury at this time. CT of the head without any intracranial bleed or acute abnormality. Chest x-ray no acute abnormality and pelvis x-ray no fracture or dislocation. Allergies and Home Medications Allergies Coded Allergies: No Known Drug Allergies (Unverified , 01/29/19) Patient Home Medication List Home Medication List Reviewed: Yes Amiodarone HCl (Amiodarone HCl) 200 Mg Tablet, 100 MG PO DAILY, (Reported) Entered as Reported by: TIFFANIE ALATORRE on 11/20/211547 Last Action: Reviewed Apixaban (Eliquis) 5 Mg Tablet, 5 MG PO BID, (Reported) Entered as Reported by: TIFFANIE ALATORRE on 11/20/211547 Last Action: Reviewed Bumetanide (Bumetanide) 0.5 Mg Tablet, 0.5 MG PO DAILY, (Reported) Entered as Reported by: TIFFANIE ALATORRE on 08/14/201513 Last Action: Reviewed Docusate Sodium (Docusate Sodium) 100 Mg Capsule, 100 MG PO DAILY, (Reported) Entered as Reported by: TIFFANIE ALATORRE on 11/20/211547 Last Action: Reviewed Hydroxychloroquine Sulfate (Hydroxychloroquine Sulfate) 200 Mg Tablet, 200 MG PO DAILY, (Reported) Entered as Reported by: TIFFANIE ALATORRE on 08/14/201513 Last Action: Reviewed Mirtazapine (Mirtazapine) 7.5 Mg Tablet, 7.5 MG PO HS, (Reported) Entered as Reported by: TIFFANIE ALATORRE on 11/20/211547 Last Action: Reviewed Potassium Chloride (Klor-Con M20) 20 Meq Tab.er.prt, 20 MEQ PO DAILY, (Reported) Entered as Reported by: TIFFANIE ALATORRE on 11/20/211547 Last Action: Reviewed Psyllium Husk (Metamucil) 0.4 Gram Capsule, 0.4 GM PO BID, (Reported) Entered as Reported by: TIFFANIE ALATORRE on 11/20/211547 Last Action: Reviewed Tamsulosin HCl (Flomax) 0.4 Mg Cap, 0.4 MG PO 1800, (Reported) Entered as Reported by: TIFFANIE ALATORRE on 08/14/201513 Last Action: Reviewed Venlafaxine HCl (Venlafaxine HCl ER) 150 Mg Cap.er.24h, 150 MG PO DAILY, (Reported) Entered as Reported by: RAMIRO GARRISON on 01/29/19 150 Last Action: Reviewed Discontinued Medications Acetaminophen (Tylenol Extra Strength) 500 Mg Tablet, 500-1,000 MG PO Q8H PRN for PAIN-MILD (1-4), (Reported) Discontinued Reason: Duplicate Order Entered as Reported by: TIFFANIE ALATORRE on 08/14/201513 Last Action: Discontinued Amiodarone HCl (Amiodarone HCl) 200 Mg Tablet, 200 MG PO BID Discontinued Reason: Duplicate Order Prescribed by: IVY RODRIGUEZ on 08/28/201351 Last Action: Discontinued Apixaban (Eliquis) 5 Mg Tablet, 5 MG PO BID Discontinued Reason: Duplicate Order Prescribed by: IVY RODRIGUEZ on 08/28/201351 Last Action: Discontinued Diclofenac Sodium (Voltaren) 100 Gm Gel..gram., 0 GM TOP QID PRN for PAIN- MODERATE (5-7) Discontinued Reason: No Longer Taking Prescribed by: ELDA LUNA on 08/28/202035 Last Action: Discontinued Doxycycline Hyclate (Doxycycline Hyclate) 100 Mg Tablet, 100 MG PO BID Discontinued Reason: Duplicate Order Prescribed by: NARAYAN GARBER on 09/01/202103 Last Action: Discontinued Latanoprost (Xalatan) 2.5 Ml Drops, 1 DROP OU HS, (Reported) Discontinued Reason: No Longer Taking Entered as Reported by: TIFFANIE ALATORRE on 08/14/201513 Last Action: Discontinued Mirtazapine (Mirtazapine) 15 Mg Tab.rapdis, 7.5 MG PO HS Discontinued Reason: Duplicate Order Prescribed by: ELDA LUNA on 08/28/202035 Last Action: Discontinued Potassium Chloride (Klor-Con M20) 20 Meq Tab.er.prt, 20 MEQ PO DAILY@0700 Discontinued Reason: Duplicate Order Prescribed by: ELDA LUNA on 08/28/202035 Last Action: Discontinued Past Wkczbjn-Opuxes-Xprylo Hx Patient Social History Smoking Status: Former Smoker (Smoked 1 PPD for "40 mary lou" years. Reports he quick 30-40 years ago.) Reviewed Nursing Assessment Reviewed/Agree w Nursing PMH: Yes Family Medical History Significant Family History: Diabetes (Sister) Review of Systems-General Constitutional: No dizziness, No fever EENTM: No blurred vision, No double vision Respiratory: No cough, No dyspnea on exertion Cardiovascular: No chest pain; syncope Gastrointestinal: abdominal pain; No nausea, No vomiting Genitourinary: No decreased output, No discharge Musculoskeletal: joint swelling, muscle pain Skin: No change in color, No change in hair/nails Psychiatric/Neurological: Denies Anxiety, Denies Depressed, Denies Emotional Problems All Other Systems Reviewed Negative Unless Noted: Yes (Negative excepted noted.) Physical Exam-General Problems Physical Exam General Appearance: WD/WN, no apparent distress HEENT: PERRL/EOMI, normal ENT inspection Neck: non-tender, supple Respiratory: chest non-tender, no respiratory distress, no accessory muscle use Cardiovascular: normal peripheral pulses, regular rate, rhythm, no JVD Gastrointestinal: soft, other (Hematoma right side of abdomen/flank with notable bruising, tender to touch) Rectal: deferred Back: no CVA tenderness, no vertebral tenderness Extremities: non-tender, no pedal edema Neurologic/Psychiatric: no motor/sensory deficits, alert, normal mood/affect Skin: normal color, warm/dry (Except hematoma with purplish color) Lymphatic: no adenopathy Assessment/Plan Assessment/Plan Assessment/Plan Possible syncopal episode Dizziness Fall Hematoma of abdominal wall with active bleeding measures 17 x 4 x 10 on imaging Hgb steady at 10 With reveresal of anticoagulation and in abdominal wall should stop on its own. Atrial fibrillation would hold apixaban, was given Kcentra to reverse in ER. Patient in ICU Neurochecks Continue cefepime Monitor Hgb and monitor for signs of active bleeding Hold anticoagulation Follow hgb Plan to move to 4 Supervisory-Addendum Brief Verification & Attestation Participated in pt care: history, MDM, physical Personally performed: exam, history, MDM, supervision of care Care discussed with: Medical Student Procedures: n/a Results interpretation: Verified all documentation Verification and Attestation of Medical Student E/M Service A medical student performed and documented this service in my presence. I reviewed and verified all information documented by the medical student and made modifications to such information, when appropriate. I personally performed the physical exam and medical decision making. Sara Ramirez, Nov 20, 2021,19:55 MYA BAKER Nov 20, 2021 12:03 SARA RAMIREZ DO Nov 20, 2021 19:26
--- NOTE | 2021-11-20 12:13 | Occupational Therapy Eval ---
OT Evaluation-General/PLF Medical Diagnosis Admission Date Nov 19, 2021 at 21:15 Medical Diagnosis: Sepsis, pnemonia Onset Date: Nov 19, 2021 Therapy Diagnosis Therapy Diagnosis: reduced adl status Height/Weight Height (Inches): 0 Weight (Pounds): 230 Precautions Precautions/Isolations: Airborne Isolation (Covid 19), Contact Isolation, Fall Prevention, Pressure Ulcer Referral Referral Reason: Evaluation/Treatment Medical History Pertinent Medical History: HTN, Renal Insufficiency Additional Medical History COVID 19 Current History Pt arrived to ER after multiple falls, syncopal episode and c/o dizziness. Tested positive for COVID 19. Per patient, he lives alone in a single story home. His daughter lives in an apartment right behind his house. He reports being indep with adls and his daughter performs all IADLs. He was using a walker at baseline but only walks short distances within the home. Reviewed History: Yes Social History Home: Single Level Current Living Status: Alone Entry Into Home: Stairs With Railing Steps Into Home: 1 ADL-Prior Level of Function SCALE: Activities may be completed with or without assistive devices. 4-Abgzuaidgk-lwgwemn completes the activity by him/herself with no assistance from a helper. 5-Set-up or Clean-up Assistance-helper sets up or cleans up; patient completes activity. [place] assists only prior to or following the activity. 4-Supervision or Touching Assistance-helper provides verbal cues and/or touching/steadying and/or contact guard assistance as patient completes activity. Assistance may be provided throughout the activity or intermittently. 3-Partial/Moderate Assistance-helper does LESS THAN HALF the effort. [place] li fts, holds or supports trunk or limbs, but provides less than half the effort. 2-Substantial/Maximal Assistance-helper does MORE THAN HALF the effort. [place] lifts or holds trunk or limbs and provides more than half the effort. 9-Topsfzaic-nnoolv does ALL the effort. Patient does none of the effort to complete the activity. Or, the assistance of 2 or more helpers is required for the patient to complete the activity. If activity was not attempted, code reason: 7-Patient Refused. 9-Not Applicable-not attempted and the patient did not perform the activity before the current illness, exacerbation or injury. 10-Not Attempted due to Environmental Limitations-(lack of equipment, weather restraints, etc.). 88-Not Attempted due to Medical Conditions or Safety Concerns. Self Care: Independent Functional Cognition: Needed Some Help DME/Equipment: Bath Chair, Grab Bars, Shower DME/Equipment Comments lift chair Drive Self: No OT Current Status Subjective Pt reports that he attempted to stand with nursing assist but was unable to. Appearance Pt returned to supine in bed, all needs within reach. Mental Status/Objective Patient Orientation: Person, Place Attachments: IV, Oxygen (3L), Telemetry Current Hand Dominance: Right Upper Extremity ROM Bilateral shoulder: ~160 degrees AROM Bilateral Elbow: WNL Upper Extremity Strength L shoulder: 4/5 R shoulder: 3+/5 Bilateral Elbow: WFL Bilateral territory development manager: Fair ADL-Treatment On/Off Footwear (QC): 1 (Pt reports he does not wear socks, only slip on shoes) Supine>sit: mod a to elevate torso. Cues for sequencing and squaring hips. Pt declines attempt to demonstrate ability to don/doff socks as he reports he already knows he will be unable to perform (he does not wear socks at home, only slip on shoes). Sit<>stand x2. On first standing bout, pt requires mod a for initial lifting. Improves to min a on 2nd bout. Fair standing balance, requires BUE support to maintain balance. At this time, pt likely will require assist for standing functional tasks such as clothing management. He was able to take 3-4 steps forward and back x2 and then 2 side steps towards HOB with min a. While standing, oxygen fluctuates from 88-92%. Improves quickly to 96% once sitting. Pt fatigues quickly. Assist needed to return to supine. Education OT Patient Education: Correct positioning, Purpose of tx/functional activities, Reviewed precautions, Safety issues, Transfer techniques Teaching Recipient: Patient Teaching Methods: Discussion Response to Teaching: Verbalize Understanding, Reinforcement Needed OT Veneer Clipper Helper Goals Mcc Goals Time Frame: Dec 04, 2021 Eating (QC): 5 Oral Hygiene (QC): 5 Toileting Hygiene (QC): 4 Shower/Bathe Self (QC): 4 Upper Body Dressing (QC): 4 Lower Body Dressing (QC): 4 1=Demonstrate adherence to instructed precautions during ADL tasks. 2=Patient will verbalize/demonstrate understanding of assistive devices/modifications for ADL. 3=Patient will improve strength/tolerance for activity to enable patient to perform ADL's. OT Education/Plan Problem List/Assessment Assessment: Decreased Activ Tolerance, Decreased Safety Aware, Decreased UE Strength, Impaired Bed Mobility, Impaired Cognition, Impaired Funct Balance, Impaired Self-Care Skills, Restricted Funct UE ROM Discharge Recommendations Plan/Recommendations: Continue POC Therapy Discharge Recommendati: Post Acute OT Treatment Plan/Plan of Care Treatment,Training & Education: Yes Patient would benefit from OT for education, treatment and training to promote independence in ADL's, mobility, safety and/or upper extremity function for ADL's. Plan of Care: ADL Retraining, Cognitive Retraining, Functional Mobility, Group Exercise/Act as Ind, UE Funct Exercise/Act Treatment Duration: Dec 04, 2021 Frequency: 3 times per week (3-5x/week) Estimated Hrs Per Day: .25 hour per day Agreement: Yes Rehab Potential: Fair Time/GCodes Start Time: 11:21 Stop Time: 11:46 Total Time Billed (hr/min): 25 Billed Treatment Time 1 visit EVM (10 min) FA (15 min) Rose Ochoa OT Nov 20, 2021 12:13
--- NOTE | 2021-11-20 13:07 | Physical Therapy Evaluation ---
PT Evaluation-General Medical Diagnosis Admission Date Nov 19, 2021 at 21:15 Medical Diagnosis: Sepsis, pnemonia Onset Date: Nov 19, 2021 Therapy Diagnosis Therapy Diagnosis: weakness; falls Height/Weight Height (Inches): 0 Weight (Pounds): 230 Precautions Precautions/Isolations: Airborne Isolation (Covid 19), Contact Isolation, Fall Prevention, Pressure Ulcer Referral Physician: Becca Reyes Reason for Referral: Evaluation/Treatment Medical History Pertinent Medical History: HTN, Renal Insufficiency Additional Medical History left TKA; Right knee pain Current History Several days of progressive weakness; syncopal episode with fall while walking in the house Reviewed History: Yes Social History Home: Single Level Current Living Status: Alone Entry Into Home: Stairs With Railing PT Steps Into Home: 1 Prior Prior Level of Function SCALE: Activities may be completed with or without assistive devices. 7-Pkyolbswqt-aaaoqlf completes the activity by him/herself with no assistance from a helper. 5-Set-up or Clean-up Assistance-helper sets up or cleans up; patient completes activity. [place] assists only prior to or following the activity. 4-Supervision or Touching Assistance-helper provides verbal cues and/or touching/steadying and/or contact guard assistance as patient completes activity. Assistance may be provided throughout the activity or intermittently. 3-Partial/Moderate Assistance-helper does LESS THAN HALF the effort. [place] lifts, holds or supports trunk or limbs, but provides less than half the effort. 2-Substantial/Maximal Assistance-helper does MORE THAN HALF the effort. [place] lifts or holds trunk or limbs and provides more than half the effort. 9-Xhsaxjptd-nivepc does ALL the effort. Patient does none of the effort to complete the activity. Or, the assistance of 2 or more helpers is required for the patient to complete the activity. If activity was not attempted, code reason: 7-Patient Refused. 9-Not Applicable-not attempted and the patient did not perform the activity before the current illness, exacerbation or injury. 10-Not Attempted due to Environmental Limitations-(lack of equipment, weather restraints, etc.). 88-Not Attempted due to Medical Conditions or Safety Concerns. Bed Mobility: 6 Transfers (B,C,W/C): 6 Gait: 6 Indoor Mobility (Ambulation): Independent Prior Devices Use: Walker Pt was (I) in the home but admits he has low strength and endurance. PT Evaluation-Current Subjective Pt indicates he can tell he is getting weaker. Objective Patient Orientation: Person, Place, Time, Situation Attachments: Oxygen, IV ROM/Strength ROM Lower Extremities Knees 0-100 degrees Strength Lower Extremities Gross 4-/5 Sensory Vision: Functional Hearing: Functional Hand Dominance: Right Sensation Right Upper Extremit: Intact Transfers Roll Left to Right (QC): 3 Sit to Lying (QC): 3 Lying to Sitting/Side of Bed(Q: 3 Sit to Stand (QC): 4 Chair/Nra-zi-Lkrpr Xfer(QC): 4 Gait Does the Patient Walk?: Yes Mode of Locomotion: Walk Anticipated Mode of Locomotion: Walk Walk 10 feet (QC): 4 Gait Assistive Device: FWW Comments/Gait Description Pt able to take 4 steps forward and backward x 3 rounds using FWW. Not able to move about the room due to lines. Pt was steady on his feet with no LOB. Balance Sitting Static: Good Sitting Dynamic: Good Standing Static: Fair Standing Dynamic: Fair Assessment/Needs Pt is showing generalized disuse weakness. he will benefit from PT to improve strength and functional mobility for d/c to home. Rehab Potential: Fair PT [facility] Goals Granite Countertop Installer Goals PT Granite Countertop Installer Goals Time Frame: Nov 27, 2021 Roll Left & Right (QC): 6 Sit to Lying (QC): 6 Lying-Sitting on Side/Bed(QC): 6 Sit to Stand (QC): 6 Chair/Tiy-fr-Mzenc Xfer(QC): 5 Toilet Transfer (QC): 4 Car Transfer (QC): 4 Does the Patient Walk: Yes Walk 10 feet (QC): 4 Walk 50ft with 2 Turns (QC): 4 PT Plan Problem List Problem List: Activity Tolerance, Functional Strength, Balance, Gait Treatment/Plan Treatment Plan: Continue Plan of Care Treatment Plan: Bed Mobility, Functional Strength, Gait, Therapeutic Exercise, Transfers Treatment Duration: Nov 27, 2021 Frequency: 6 times per week Estimated Hrs Per Day: .25 hour per day Patient and/or Family Agrees t: Yes Discharge Recommendations Therapy Discharge Recommendati: Post Acute PT, Post Acute ST, Post Acute OT Barriers to Progress multiple co-morbidities Target Placement post acute therapy Time/GCodes Time In: 1125 Time Out: 1200 Total Billed Treatment Time: 25 Total Billed Treatment visit, sylvainal high complexity 25 min MICA HILARIO PT Nov 20, 2021 13:07
[2021-11-20] MEDS ORDERED: DOCU100C37 PO (15:48)
[2021-11-20] MEDS ORDERED: APIX5TAB PO (15:48)
[2021-11-20] MEDS ORDERED: POTA-169 PO (15:48)
[2021-11-20] MEDS ORDERED: AMIO200T65 PO (15:48)
[2021-11-20] MEDS ORDERED: MIRT7.5T8 PO (15:48)
[2021-11-20] MEDS ORDERED: PSYL0.4C2 PO (15:48)
--- NOTE | 2021-11-20 21:20 | History & Physical-Hospitalist ---
History of Present Illness HPI/Chief Complaint Rad Lutz is an 81 year old male with PMH HTN, HLD, AFib, BPH, cutaneous lupus, who presented after a fall. EMS was called and transported him to the hospital. He had right sided abdominal pain. He had some dizziness before the fall. He denies fevers and chills. He denies shortness of breath and cough. He denies sore throat and runny nose. He denies chest pain. He denies nausea and vomiting. Source: patient Exam Limitations: no limitations Date Seen 11/20/21 Time Seen by a Provider: 10:40 Attending Physician Alvaro Lebron MD PCP Admitting Physician: Alvaro Lebron MD Attending Physician: Alvaro Lebron MD Referring Physician Date of Admission Nov 19, 2021 at 21:15 Home Medications & Allergies Home Medications Reviewed patient Home Medication Reconciliation performed by pharmacy medication reconciliations test technician and/or nursing. Patients Allergies have been reviewed. Allergies Allergies Coded Allergies No Known Drug Allergies (Unverified01/29/19) Past Xzfsmcp-Xdofza-Nuzkiw Hx Patient Social History Tobacco Use?: No Tobacco type used: Cigarettes Smoking Status: Former Smoker (Smoked 1 PPD for "40 mary lou" years. Reports he quick 30-40 years ago.) Use of E-Cig and/or Vaping dev: No Substance use?: No Alcohol Use?: No Pt feels they are or have been: No Immunizations Up To Date Date of Influenza Vaccine: Feb 09, 2020 Date of Pneumonia Vaccine: Mar 12, 2009 Seasonal Allergies Seasonal Allergies: No Current Status Advance Directives: No Communicates: Verbally Primary Language: [place] Preferred Spoken Language: [place] Is interpretation needed?: No Implanted or Applied Medical D: None Past Medical History Surgeries: Appendectomy, Gallbladder, Joint Replacement, Orthopedic Pneumonia Atrial Fibrillation, Chronic Edema/Swelling, High Cholesterol, Hypertension, Rheumatic Fever Sexually Transmitted Disease: No Benign Prostatic Hyperpl, Bladder Infection, Renal Failure Gastroesophageal Reflux, Polyps Arthritis Lupus Anxiety, Depression Blood Disorders: No Family Medical History Diabetes (Sister) SOCIAL HISTORY: -ETOH--HISTORY OF USE/ABUSE -DRUGS-DENIES USE -SMOKED 1 PPD X 30 YEARS, QUIT SEVERAL YEARS AGO PAST SURGICAL HISTORY: -BILATERAL ROTATOR CUFF REPAIR -HAND SURGERY -LEFT TOTAL KNEE REPLACEMENT -LEFT THORACENTESIS 10/2012 FOR PLEURAL EFFUSION -APPENDECTOMY -CHOLECYSTECTOMY ( GANGRENOUS GALLBLADDER) -COLONOSCOPY WITH POLYPECTOMY 2013 -BILATERAL CATARACT SURGERY Review of Systems Constitutional: dizziness EENTM: no symptoms reported Respiratory: no symptoms reported Cardiovascular: no symptoms reported Gastrointestinal: no symptoms reported Genitourinary: no symptoms reported Physical Exam Physical Exam Vital Signs Vital Signs - First Documented 11/19/21 11/19/21 11/20/21 17:30 18:20 00:30 Temp 36.1 Pulse 80 Resp 23 B/P (MAP) 120/76 (91) Pulse Ox 94 O2 Delivery Room Air O2 Flow Rate 2.00 FiO2 28 Capillary Refill : Less Than 3 Seconds Height, Weight, BMI Height: '0" Weight: 230lbs. oz. 104.129422yd; 32.52 BMI Method:Stated General Appearance: No Apparent Distress, WD/WN HEENT: PERRL/EOMI, Pharynx Normal Neck: Normal Inspection, Supple Respiratory: Lungs Clear, No Respiratory Distress Cardiovascular: Regular Rate, Rhythm, No Murmur Gastrointestinal: Normal Bowel Sounds, Soft, Tenderness, Other (right abdominal wall hematoma) Extremity: Normal Inspection, No Pedal Edema Neurologic/Psychiatric: Alert, Normal Mood/Affect Skin: Warm/Dry, Ecchymosis (right abdomen) Results Results/Procedures Labs Laboratory Tests 11/19/21 17:40 11/20/21 02:04 11/20/21 08:10 Patient resulted labs reviewed. Imaging: Reviewed Imaging Report Assessment/Plan Admission Diagnosis Abdominal wall hematoma Admission Status: Inpatient Order (span 2 midnights) Reason for Inpatient Admission: IV antibiotics Assessment and Plan Abdominal wall hematoma Ground level fall Imaging revealed hematoma s/p Kcentra Hold Xarelto Hgb slightly decreased Surgery consulted PT/OT Swing bed evaluation COVID-19 No treatment indicated at this time No supplemental oxygen required Sepsis Possible pneumonia SIRS+ with leukocytosis and tachypnea CXR with possible infiltrate Procal negative Started on Cefepime Repeat procal tomorrow AFib Hold Eliquis Continue amiodarone BPH 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
[2021-11-21] MEDS: CEFEPIME INJECTION 1,000 MG in NS (IVPB) 50 ML IV SCH ×4 (02:06→21:16)
[2021-11-21] MEDS: NS IV 1000 ML 1,000 ML IV SCH ×3 (06:04→21:16)
[2021-11-21 06:06] LABS: BASOPHILS # (AUTO) 0.1 10^3/uL (0.0-0.1); BASOPHILS % (AUTO) 1 % (0-10); EOSINOPHILS # (AUTO) 0.2 10^3/uL (0.0-0.3); EOSINOPHILS % (AUTO) 3 % (0-10); HEMATOCRIT 27 % (40-54); HEMOGLOBIN 8.3 g/dL (13.3-17.7); LYMPHOCYTES # (AUTO) 1.4 10^3/uL (1.0-4.0); LYMPHOCYTES % (AUTO) 14 % (12-44); MEAN CORPUSCULAR HEMOGLOBIN 29 pg (25-34); MEAN CORPUSCULAR HGB CONC 31 g/dL (32-36); MEAN CORPUSCULAR VOLUME 92 fL (80-99); MEAN PLATELET VOLUME 12.7 fL (9.0-12.2); MONOCYTES # (AUTO) 1.2 10^3/uL (0.0-1.0); MONOCYTES % (AUTO) 12 % (0-12); NEUTROPHILS # (AUTO) 6.9 10^3/uL (1.8-7.8); NEUTROPHILS % (AUTO) 70 % (42-75); PLATELET COUNT 169 10^3/uL (130-400); WHITE BLOOD COUNT 9.8 10^3/uL (4.3-11.0)
[2021-11-21 06:17] LABS: ALBUMIN 3.3 GM/DL (3.2-4.5); POTASSIUM 3.6 MMOL/L (3.6-5.0)
[2021-11-21 06:20] LABS: TOTAL PROTEIN 5.9 GM/DL (6.4-8.2)
[2021-11-21 06:21] LABS: BILIRUBIN,TOTAL 0.7 MG/DL (0.1-1.0)
[2021-11-21 06:23] LABS: CREATININE SERUM 1.08 MG/DL (0.60-1.30); PHOSPHORUS 2.2 MG/DL (2.3-4.7)
[2021-11-21] MEDS: MAGNESIUM 1 GM/100 ML IVPB 100 ML IV SCH (06:49)
[2021-11-21] MEDS: POTASSIUM CL 10MEQ/50ML IVPB 50 ML IV SCH (06:50)
[2021-11-21] MEDS: KCL 20 MEQ TAB (K-DUR) PO SCH (06:51)
--- NOTE | 2021-11-21 07:28 | Progress Note - Surgery ---
MYA BAKER Joleen 11/21/21 0728: Subjective Date Seen by a Provider: Nov 21, 2021 Time Seen by a Provider: 07:02 Subjective/Events-last exam Mr. Lutz is being followed for an abdominal hematoma s/p a possible syncopal episode. This morning he reports minor pain in his abdomen only upon palpation. Nursing reports that early in the morning he was confused with oxygen saturations of around 87%. He was placed on 2L via nasal canula and when I spoke with him he was alert and oriented. He says his breathing is okay with his oxygen. He has no other concerns or questions this morning. His Hgb decreased from 10.0 to 8.3. No new imaging. Patient denies dizziness or syncopal symptoms. Review of Systems General: No Chills, No Fatigue HEENT: No Head Aches, No Visual Changes Pulmonary: No Dyspnea, No Cough Cardiovascular: No: Chest Pain, Palpitations Gastrointestinal: Abdominal Pain; No: Nausea, Vomiting Neurological: No: Weakness, Confusion Focused Exam Lactate Level 11/19/21 18:15: Lactic Acid Level 1.57 Objective Exam Vital Signs Date Time Temp Pulse Resp B/P (MAP) Pulse Ox O2 Delivery O2 Flow Rate FiO2 11/21/21 03:47 37.3 63 13 118/61 92 Room Air 11/21/21 01:00 62 11/20/21 23:54 37.3 74 20 158/71 92 Room Air 11/20/21 20:28 37.5 72 20 155/73 93 Room Air 11/20/21 20:00 Room Air 11/20/21 19:00 61 11/20/21 16:13 37.2 61 147/74 95 Room Air 11/20/21 13:00 63 11/20/21 12:00 64 25 124/73 96 Nasal Cannula 2.00 11/20/21 12:00 36.6 11/20/21 11:40 Nasal Cannula 2.00 11/20/21 11:00 80 15 149/72 96 Nasal Cannula 2.00 11/20/21 10:00 70 25 133/72 95 Nasal Cannula 2.00 11/20/21 09:00 63 25 119/68 97 Nasal Cannula 2.00 11/20/21 08:50 Nasal Cannula 2.00 11/20/21 08:00 66 15 120/70 96 Nasal Cannula 2.00 11/20/21 08:00 36.0 I & O 11/21/21 07:00 Intake Total 3030 ml Output Total 1125 ml Balance 1905 ml Capillary Refill : Less Than 3 Seconds General Appearance: No Apparent Distress, WD/WN HEENT: Pharynx Normal, Moist Mucous Membranes Neck: Non Tender, Supple Respiratory: Chest Non Tender, Lungs Clear, No Accessory Muscle Use, No Respiratory Distress Cardiovascular: No Murmur, Irregularly Irregular Peripheral Pulses: 2+ Radial Pulses (R), 2+ Radial Pulses (L) Gastrointestinal: soft, other (Hematoma right side of abdomen/flank, tender to touch) Extremity: Normal Inspection, No Pedal Edema Neurologic/Psychiatric: Alert, No Motor/Sensory Deficits, Normal Mood/Affect Skin: Normal Color, Warm/Dry Results Lab Laboratory Tests 11/20/21 08:10: White Blood Count 10.0, Red Blood Count 3.46L, Hemoglobin 10.0L, Hematocrit 32L, Mean Corpuscular Volume 92, Mean Corpuscular Hemoglobin 29, Mean Corpuscular Hemoglobin Concent 31L, Red Cell Distribution Width 14.8H, Platelet Count 178, Mean Platelet Volume 13.0H 11/21/21 05:48: White Blood Count 9.8, Red Blood Count 2.91L, Hemoglobin 8.3L, Hematocrit 27L, Mean Corpuscular Volume 92, Mean Corpuscular Hemoglobin 29, Mean Corpuscular Hemoglobin Concent 31L, Red Cell Distribution Width 15.1H, Platelet Count 169, Mean Platelet Volume 12.7H, Immature Granulocyte % (Auto) 0, Neutrophils (%) (Auto) 70, Lymphocytes (%) (Auto) 14, Monocytes (%) (Auto) 12, Eosinophils (%) (Auto) 3, Basophils (%) (Auto) 1, Neutrophils # (Auto) 6.9, Lymphocytes # (Auto) 1.4, Monocytes # (Auto) 1.2H, Eosinophils # (Auto) 0.2, Basophils # (Auto) 0.1, Immature Granulocyte # (Auto) 0.0, Sodium Level 138, Potassium Level 3.6, Chlori de Level 107, Carbon Dioxide Level 22, Anion Gap 9, Blood Urea Nitrogen 15, Creatinine 1.08, Estimat Glomerular Filtration Rate 69, BUN/Creatinine Ratio 14, Glucose Level 101, Calcium Level 8.0L, Corrected Calcium 8.6, Phosphorus Level 2.2L, Magnesium Level 2.0, Total Bilirubin 0.7, Aspartate Amino Transf (AST/SGOT) 21, Alanine Aminotransferase (ALT/SGPT) 14, Alkaline Phosphatase 50, Total Protein 5.9L, Albumin 3.3 Microbiology 11/19/21 Blood Culture - Preliminary, Resulted No growth Assessment/Plan Assessment/Plan Assessment/Plan Possible syncopal episode Dizziness Fall Hematoma of abdominal wall with active bleeding Measures 17 x 4 x 10 on imaging Hgb decreased from 10.0 to 8.3 overnight Atrial fibrillation Given Kcentra to reverse in ER Covid Elevated BNP Elevated Myogolbin Plan: Patient moved from ICU to 4 Continue cefepime Monitor Hgb and monitor for signs of active bleeding Continue to hold anticoagulation Medicine following for Covid treatment and possible pneumonia Continue supplemental oxygen Consider repeat imaging to assess for expansion of hematoma. The decrease in hgb could indicate a possible continuation of bleeding. SARA TOMLIN DO 11/21/21 2210: Subjective Subjective/Events-last exam Patient feeling bit better today. He is alert and oriented. Patient states the right side pain has slightly improved. He did have a drop of hemoglobin to 8.3 from 10. Vital signs are stable slightly hypertensive no new complaints. No breathing difficulties he states at this time. Had a slight drop in oxygen saturation but improved with oxygen per nasal cannula. Objective Exam General Appearance: No Apparent Distress, WD/WN HEENT: PERRL/EOMI, Normal ENT Inspection Neck: Full Range of Motion, Non Tender, Supple Respiratory: Chest Non Tender, No Accessory Muscle Use, No Respiratory Distress Cardiovascular: No JVD, Irregularly Irregular Gastrointestinal: soft, other (Hematoma right side of abdomen/flank, tender to touch slightly increased ecchymosis) Extremity: Normal Inspection, Non Tender Neurologic/Psychiatric: Alert, No Motor/Sensory Deficits, Normal Mood/Affect Skin: Normal Color, Warm/Dry Lymphatic: No Adenopathy Assessment/Plan Assessment/Plan Assessment/Plan Possible syncopal episode Dizziness Fall Hematoma of abdominal wall with active bleeding Measures 17 x 4 x 10 on imaging Hgb decreased from 10.0 to 8.3 overnight Atrial fibrillation Given Kcentra to reverse in anticoagulation in ER Covid Elevated BNP Elevated Myogolbin Plan: Patient moved from ICU to 4 Continue cefepime Monitor Hgb and monitor for signs of active bleeding Continue to hold anticoagulation Medicine following for Covid treatment and possible pneumonia Continue supplemental oxygen Follow hgb and transfuse as needed. Reveral of anticoagulation and confined space of abdominal wall should cause tamponade stopping the bleeding. Supervisory-Addendum Brief Verification & Attestation Participated in pt care: history, MDM, physical Personally performed: exam, history, MDM, supervision of care Care discussed with: Medical Student Procedures: n/a Results interpretation: Verified all documentation Verification and Attestation of Medical Student E/M Service A medical student performed and documented this service in my presence. I reviewed and verified all information documented by the medical student and made modifications to such information, when appropriate. I personally performed the physical exam and medical decision making. Sara Tomlin, Nov 21, 2021,22:13 MYA BAKER Nov 21, 2021 07:28 SARA TOMLIN DO Nov 21, 2021 22:10
--- NOTE | 2021-11-21 07:56 | Tele-ICU Progress Note ---
Subjective Date Seen by a Provider: Nov 21, 2021 Time Seen by a Provider: 07:00 Subjective/Events-last exam This virtual visit was conducted using real time audio/video. Thank you for asking us to see this patient for respiratory insufficiency due to atelectasis, possible undiagnosed COPD Recent events: Desat overnight during sleep to 87%. placed on O2 2 LPM. No record of snoring, apneas. Former smoker w 30 pack years. Ambulating w PT. PE: VSS. O2 sat 94% on 2 LPM NC. HEENT: No obvious masses, adenopathy or JVD. Chest: clear to auscultation. CV: Irreg. S1 S2 No murmur or added sounds. Abd: Non-tender. Bowel sounds Y. : Unremarkable. Bojorquez N. FINISHING LAB TECHNICIAN/psychiatric: Grossly intact. No obvious focal findings. Extremities: No edema. Capillary refill < 3 seconds. Skin: unremarkable. Results: Decreased Hb 8.3. B.42/35/70 on 2 LPM. CXR: Possible atelectasis/infiltrate L base. Possible hyperinflation R lung.. Available chart/ vitals / labs / images reviewed. Video assessment done using teleICU camera, rest of exam as per RN. A/P: Respiratory insufficiency: Continue present management with prn O2, albuterol, Consider full PFTs when recovered from hematoma to assess if COPD present. Monitor for increasing oxygenation needs and/or need for intubation. Critical Care: critically ill patient. Cont.holding Eliquis, monitoring CBC, per surgery.. Continue SCDs, effexor, amiodarone. Discussed with MARTY Huang. Asked RN to reach out to eICU if any questions or concerns later. Time spent with patient/coordination of care with other health professionals (mins): 35 Sepsis Event Evaluation Height, Weight, BMI Height: '0" Weight: 230lbs. oz. 104.301740mb; 30.19 BMI Method:Stated Focused Exam Lactate Level 11/19/21 18:15: Lactic Acid Level 1.57 Exam Exam Patient acknowledged, consented, and participated in this virtual visit which was conducted using real time audio/video Vital Signs Date Time Temp Pulse Resp B/P (MAP) Pulse Ox O2 Delivery O2 Flow Rate FiO2 11/21/21 03:47 37.3 63 13 118/61 92 Room Air 11/21/21 01:00 62 11/20/21 23:54 37.3 74 20 158/71 92 Room Air 11/20/21 20:28 37.5 72 20 155/73 93 Room Air 11/20/21 20:00 Room Air 11/20/21 19:00 61 11/20/21 16:13 37.2 61 147/74 95 Room Air 11/20/21 13:00 63 11/20/21 12:00 64 25 124/73 96 Nasal Cannula 2.00 11/20/21 12:00 36.6 11/20/21 11:40 Nasal Cannula 2.00 11/20/21 11:00 80 15 149/72 96 Nasal Cannula 2.00 11/20/21 10:00 70 25 133/72 95 Nasal Cannula 2.00 11/20/21 09:00 63 25 119/68 97 Nasal Cannula 2.00 11/20/21 08:50 Nasal Cannula 2.00 11/20/21 08:00 66 15 120/70 96 Nasal Cannula 2.00 11/20/21 08:00 36.0 I & O 11/21/21 07:00 Intake Total 3030 ml Output Total 1125 ml Balance 1905 ml Height & Weight Height: '0" Weight: 230lbs. oz. 104.220096bi; 30.19 BMI Method:Stated General Appearance: No Apparent Distress, WD/WN HEENT: Pharynx Normal, Moist Mucous Membranes Neck: Non Tender, Supple Respiratory: Chest Non Tender, Lungs Clear, No Accessory Muscle Use, No Respiratory Distress Cardiovascular: No Murmur, Irregularly Irregular Capillary Refill: Less Than 3 Seconds Peripheral Pulses: 2+ Radial Pulses (R), 2+ Radial Pulses (L) Gastrointestinal: soft, other (Hematoma right side of abdomen/flank, tender to touch) Extremity: Normal Inspection, No Pedal Edema Neurologic/Psychiatric: Alert, No Motor/Sensory Deficits, Normal Mood/Affect Skin: Normal Color, Warm/Dry Results Lab Laboratory Tests 11/19/21 17:40 11/20/21 02:04 11/20/21 08:10 11/21/21 05:48 Assessment/Plan Assessment/Plan See free text. Critical Care: Critically Ill Patient JADEN MAURICIO MD Nov 21, 2021 07:56
[2021-11-21 08:56] VITALS: BP 169/71
[2021-11-21] MEDS ORDERED: KCL 20 MEQ TAB (K-DUR) PO ONE (09:00)
[2021-11-21] MEDS: VENlafaxine XR 75 MG (EFFEXOR XR) CAP PO SCH (09:24)
[2021-11-21] MEDS: AMIODARONE 200 MG (CORDARONE) TAB PO SCH (09:25)
[2021-11-21] MEDS: HYDROXYCHLOROQUINE 200 MG (PLAQUENIL) TAB PO SCH (09:25)
--- NOTE | 2021-11-21 10:54 | Physical Therapy Daily Note ---
PT Daily Note-Current Subjective Patient agrees to OOB activity Mental Status Patient Orientation: Confused Attachments: IV Transfers SCALE: Activities may be completed with or without assistive devices. 1-Ypvgscipsh-abzjdbz completes the activity by him/herself with no assistance from a helper. 5-Set-up or Clean-up Assistance-helper sets up or cleans up; patient completes activity. [place] assists only prior to or following the activity. 4-Supervision or Touching Assistance-helper provides verbal cues and/or touching/steadying and/or contact guard assistance as patient completes activity. Assistance may be provided throughout the activity or intermittently. 3-Partial/Moderate Assistance-helper does LESS THAN HALF the effort. [place] lifts, holds or supports trunk or limbs, but provides less than half the effort. 2-Substantial/Maximal Assistance-helper does MORE THAN HALF the effort. [place] lifts or holds trunk or limbs and provides more than half the effort. 7-Ighgnqzwv-mtzrtq does ALL the effort. Patient does none of the effort to complete the activity. Or, the assistance of 2 or more helpers is required for the patient to complete the activity. If activity was not attempted, code reason: 7-Patient Refused. 9-Not Applicable-not attempted and the patient did not perform the activity before the current illness, exacerbation or injury. 10-Not Attempted due to Environmental Limitations-(lack of equipment, weather restraints, etc.). 88-Not Attempted due to Medical Conditions or Safety Concerns. Lying to Sitting/Side of Bed(Q: 3 Sit to Stand (QC): 3 Chair/Qfn-sm-Sudzn Xfer(QC): 3 Gait Training Distance: 75' Walk 10 feet (QC): 3 Walk 50 ft with 2 Turns(QC): 3 Gait Assistive Device: FWW shuffle gait sequence with NBOS/extended UE's with FWW use. Exercises Seated Therapy Exercises: Ankle pumps, Long arc quads, Hip flexion Seated Reps: 12 Assessment Patient up in recliner with needs met and call light in hand with instruction to press red button to call for assistance. Patient voices understanding and nursing notified. PT Usp Goals Roof Panel Hanger Goals PT Roof Panel Hanger Goals Time Frame: Nov 27, 2021 Roll Left & Right (QC): 6 Sit to Lying (QC): 6 Lying-Sitting on Side/Bed(QC): 6 Sit to Stand (QC): 6 Chair/Tpt-jn-Sxpbd Xfer(QC): 5 Toilet Transfer (QC): 4 Car Transfer (QC): 4 Does the Patient Walk: Yes Walk 10 feet (QC): 4 Walk 50ft with 2 Turns (QC): 4 PT Plan Treatment/Plan Treatment Plan: Continue Plan of Care Treatment Plan: Bed Mobility, Functional Strength, Gait, Therapeutic Exercise, Transfers Treatment Duration: Nov 27, 2021 Frequency: 6 times per week Estimated Hrs Per Day: .25 hour per day Patient and/or Family Agrees t: Yes Time/GCodes Time In: 1030 Time Out: 1041 Total Billed Treatment Time: 11 Total Billed Treatment 1 visit FA 11 min SABINA YU PT Nov 21, 2021 10:54
[2021-11-21 12:48] VITALS: BP 148/60
--- NOTE | 2021-11-21 13:51 | Occupational Ther Daily Note ---
OT Current Status-Daily Note Subjective Pt denies pain, agreeable to treatment. Appearance Pt left supine in bed, all needs within reach at therapy departure Mental Status/Objective Patient Orientation: Person, Place Attachments: IV, Oxygen ADL-Treatment Therapy Code Descriptions/Definitions Functional [place] Measure: 0=Not Assessed/NA 4=Minimal Assistance 1=Total Assistance 5=Supervision or Setup 2=Maximal Assistance 6=Modified [place] 3=Moderate Assistance 7=Complete IndependenceSCALE: Activities may be completed with or without assistive devices. 1-Bfyiejkhhr-sawruwd completes the activity by him/herself with no assistance from a helper. 5-Set-up or Clean-up Assistance-helper sets up or cleans up; patient completes activity. [place] assists only prior to or following the activity. 4-Supervision or Touching Assistance-helper provides verbal cues and/or touching/steadying and/or contact guard assistance as patient completes activity. Assistance may be provided throughout the activity or intermittently. 3-Partial/Moderate Assistance-helper does LESS THAN HALF the effort. [place] lifts, holds or supports trunk or limbs, but provides less than half the effort. 2-Substantial/Maximal Assistance-helper does MORE THAN HALF the effort. [place] lifts or holds trunk or limbs and provides more than half the effort. 7-Wbuoomxmw-ygazow does ALL the effort. Patient does none of the effort to complete the activity. Or, the assistance of 2 or more helpers is required for the patient to complete the activity. If activity was not attempted, code reason: 7-Patient Refused. 9-Not Applicable-not attempted and the patient did not perform the activity before the current illness, exacerbation or injury. 10-Not Attempted due to Environmental Limitations-(lack of equipment, weather restraints, etc.). 88-Not Attempted due to Medical Conditions or Safety Concerns. Other Treatment Pt supine in bed at therapy arrival. Agreeable to UE exercises with focus on improving strength, ROM, and endurance needed for functional tasks. Pt with history of bilateral rotator cuff injuries, yet still able to complete ~160 degrees of shoulder flexion. Shoulder exercises modified to 90 degrees, zero resistance. Pt often requests assist with Left shoulder, despite being able to perform. All other joints performed to full range. 1x10 all planes. Education OT Patient Education: Correct positioning, Exercise program, Modified ADL techniques, Safety issues Teaching Recipient: Patient Teaching Methods: Demonstration, Discussion Response to Teaching: Verbalize Understanding, Return Demonstration, Reinforcement Needed OT Agent Broker Goals Agent Broker Goals Time Frame: Dec 04, 2021 Eating (QC): 5 Oral Hygiene (QC): 5 Toileting Hygiene (QC): 4 Shower/Bathe Self (QC): 4 Upper Body Dressing (QC): 4 Lower Body Dressing (QC): 4 1=Demonstrate adherence to instructed precautions during ADL tasks. 2=Patient will verbalize/demonstrate understanding of assistive devices/modifications for ADL. 3=Patient will improve strength/tolerance for activity to enable patient to perform ADL's. OT Education/Plan Problem List/Assessment Assessment: Decreased Activ Tolerance, Decreased Safety Aware, Decreased UE Strength, Impaired Cognition, Impaired Funct Balance, Impaired Self-Care Skills, Restricted Funct UE ROM Discharge Recommendations Plan/Recommendations: Continue POC Treatment Plan/Plan of Care Treatment,Training & Education: Yes Patient would benefit from OT for education, treatment and training to promote independence in ADL's, mobility, safety and/or upper extremity function for ADL's. Plan of Care: ADL Retraining, Cognitive Retraining, Functional Mobility, Group Exercise/Act as Ind, UE Funct Exercise/Act Treatment Duration: Dec 04, 2021 Frequency: 3 times per week (3-5x/week) Estimated Hrs Per Day: .25 hour per day Agreement: Yes Rehab Potential: Fair Time/GCodes Start Time: 13:16 Stop Time: 13:28 Total Time Billed (hr/min): 12 Billed Treatment Time 1 visit EX Rose Ochoa OT Nov 21, 2021 13:51
[2021-11-21 16:21] VITALS: BP 174/83
--- NOTE | 2021-11-21 16:29 | Progress Note - Hospitalist ---
Subjective HPI/CC On Admission Date Seen by Provider: Nov 21, 2021 Time Seen by Provider: 10:55 Rad Lutz is an 81 year old male with PMH HTN, HLD, AFib, BPH, cutaneous lupus, who presented after a fall. EMS was called and transported him to the hospital. He had right sided abdominal pain. He had some dizziness before the fall. He denies fevers and chills. He denies shortness of breath and cough. He denies sore throat and runny nose. He denies chest pain. He denies nausea and vomiting. Subjective/Events-last exam He is feeling better. He is in his chair. He just walked with therapy. He denies shortness of breath. He has no other complaints. Focused Exam Lactate Level 11/19/21 18:15: Lactic Acid Level 1.57 Objective Exam Vital Signs Vital Signs Date Time Temp Pulse Resp B/P (MAP) Pulse Ox O2 Delivery O2 Flow Rate FiO2 11/21/21 16:21 37.2 68 20 174/83 (113) 95 Room Air 11/21/21 12:48 11/20/21 00:30 28 Capillary Refill : Less Than 3 Seconds General Appearance: No Apparent Distress, Obese Respiratory: Lungs Clear, No Respiratory Distress Cardiovascular: Regular Rate, Rhythm, No Murmur Gastrointestinal: Normal Bowel Sounds, Soft, Other (right abdominal wall hematoma) Extremity: Normal Inspection, No Pedal Edema Neurologic/Psychiatric: Alert, Normal Mood/Affect Skin: Ecchymosis (abdomen) Results/Procedures Lab Laboratory Tests 11/21/21 05:48 Patient resulted labs reviewed. 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
[2021-11-21] MEDS ORDERED: TAMSULOSIN 0.4 MG (FLOMAX) CAP PO SCH (18:00)
[2021-11-21 20:25] VITALS: BP 175/75
[2021-11-21] MEDS ORDERED: MIRTAZAPINE 15 MG (REMERON) TAB PO SCH (21:00)
[2021-11-21 23:43] VITALS: BP 169/79
[2021-11-22] MEDS: CEFEPIME INJECTION 1,000 MG in NS (IVPB) 50 ML IV SCH ×2 (02:58→09:07)
[2021-11-22 04:00] VITALS: BP 152/74
[2021-11-22 05:47] LABS: BASOPHILS # (AUTO) 0.1 10^3/uL (0.0-0.1); BASOPHILS % (AUTO) 1 % (0-10); EOSINOPHILS # (AUTO) 0.3 10^3/uL (0.0-0.3); EOSINOPHILS % (AUTO) 3 % (0-10); HEMATOCRIT 24 % (40-54); HEMOGLOBIN 7.5 g/dL (13.3-17.7); LYMPHOCYTES # (AUTO) 0.7 10^3/uL (1.0-4.0); LYMPHOCYTES % (AUTO) 9 % (12-44); MEAN CORPUSCULAR HEMOGLOBIN 29 pg (25-34); MEAN CORPUSCULAR HGB CONC 31 g/dL (32-36); MEAN CORPUSCULAR VOLUME 92 fL (80-99); MEAN PLATELET VOLUME 12.3 fL (9.0-12.2); MONOCYTES # (AUTO) 0.8 10^3/uL (0.0-1.0); MONOCYTES % (AUTO) 10 % (0-12); NEUTROPHILS # (AUTO) 5.9 10^3/uL (1.8-7.8); NEUTROPHILS % (AUTO) 76 % (42-75); PLATELET COUNT 146 10^3/uL (130-400); WHITE BLOOD COUNT 7.8 10^3/uL (4.3-11.0)
[2021-11-22 06:01] LABS: ALBUMIN 3.2 GM/DL (3.2-4.5); POTASSIUM 3.6 MMOL/L (3.6-5.0)
[2021-11-22 06:04] LABS: TOTAL PROTEIN 5.8 GM/DL (6.4-8.2)
[2021-11-22 06:05] LABS: BILIRUBIN,TOTAL 0.8 MG/DL (0.1-1.0)
[2021-11-22 06:07] LABS: CREATININE SERUM 0.87 MG/DL (0.60-1.30); PHOSPHORUS 1.6 MG/DL (2.3-4.7)
[2021-11-22] MEDS: KCL 20 MEQ TAB (K-DUR) PO SCH (06:11)
[2021-11-22] MEDS: MAGNESIUM 1 GM/100 ML IVPB 100 ML IV SCH (06:11)
[2021-11-22] MEDS: POTASSIUM CL 10MEQ/50ML IVPB 50 ML IV SCH (06:11)
[2021-11-22] MEDS ORDERED: KCL 20 MEQ TAB (K-DUR) PO ONE (06:15)
[2021-11-22] MEDS: NS IV 1000 ML 1,000 ML IV SCH (06:28)
--- NOTE | 2021-11-22 08:00 | Progress Note - Surgery ---
MYA BAKER Joleen 11/22/21 0759: Subjective Date Seen by a Provider: Nov 22, 2021 Time Seen by a Provider: 07:14 Subjective/Events-last exam Mr. Lutz is being followed for an abdominal hematoma s/p a possible syncopal episode. This morning he reports his breathing is doing well; he is not on any supplemental oxygen. He denies and abdominal or flank pain at rest, he says there is slight tenderness with deep palpation. His Hgb has continued to decrease to 7.5. His main concern this morning is when he will be able to go home. Review of Systems General: No Chills, No Fatigue HEENT: No Head Aches, No Visual Changes Pulmonary: No Dyspnea, No Cough Cardiovascular: No: Chest Pain, Palpitations Gastrointestinal: Abdominal Pain (Upon deep palpation); No: Nausea, Vomiting Focused Exam Lactate Level 11/19/21 18:15: Lactic Acid Level 1.57 Objective Exam Vital Signs Date Time Temp Pulse Resp B/P (MAP) Pulse Ox O2 Delivery O2 Flow Rate FiO2 11/22/21 07:00 74 11/22/21 04:00 37.2 70 18 152/74 (100) 93 Room Air 11/22/21 01:00 72 11/21/21 23:43 37.4 70 18 169/79 (109) 95 Room Air 11/21/21 20:25 37.1 63 20 175/75 (108) 96 Room Air 11/21/21 20:00 Nasal Cannula 2.00 11/21/21 19:00 77 11/21/21 16:21 37.2 68 20 174/83 (113) 95 Room Air 11/21/21 13:00 61 11/21/21 12:48 36.5 67 19 148/60 (89) 95 Room Air 11/21/21 08:56 37.0 65 20 169/71 (103) 96 Nasal Cannula 2.00 11/21/21 08:14 Nasal Cannula 2.00 I & O 11/22/21 07:00 Intake Total 2525 ml Output Total 700 ml Balance 1825 ml Capillary Refill : Less Than 3 Seconds General Appearance: No Apparent Distress, WD/WN HEENT: PERRL/EOMI, Moist Mucous Membranes Neck: Non Tender, Supple Respiratory: Chest Non Tender, Lungs Clear, Normal Breath Sounds, No Accessory Muscle Use, No Respiratory Distress Cardiovascular: No Edema, Normal Peripheral Pulses, Irregularly Irregular Peripheral Pulses: 2+ Radial Pulses (R), 2+ Radial Pulses (L) Gastrointestinal: soft, other (Hematoma right side of abdomen/flank, tender to touch slightly. Ecchymoses increased in size today.) Extremity: Non Tender, No Calf Tenderness Neurologic/Psychiatric: Alert, No Motor/Sensory Deficits, Normal Mood/Affect Skin: Warm/Dry, Ecchymosis Lymphatic: No Adenopathy Results Lab Laboratory Tests 11/22/21 05:20: White Blood Count 7.8, Red Blood Count 2.62L, Hemoglobin 7.5L, Hematocrit 24L, Mean Corpuscular Volume 92, Mean Corpuscular Hemoglobin 29, Mean Corpuscular Hemoglobin Concent 31L, Red Cell Distribution Width 15.3H, Platelet Count 146, Mean Platelet Volume 12.3H, Immature Granulocyte % (Auto) 1, Neutrophils (%) (Auto) 76H, Lymphocytes (%) (Auto) 9L, Monocytes (%) (Auto) 10, Eosinophils (%) (Auto) 3, Basophils (%) (Auto) 1, Neutrophils # (Auto) 5.9, Lymphocytes # (Auto) 0.7L, Monocytes # (Auto) 0.8, Eosinophils # (Auto) 0.3, Basophils # (Auto) 0.1, Immature Granulocyte # (Auto) 0.1, Sodium Level 139, Potassium Level 3.6, Chloride Level 108H, Carbon Dioxide Level 21, Anion Gap 10, Blood Urea Nitrogen 11, Creatinine 0.87, Estimat Glomerular Filtration Rate 87, BUN/Creatinine Ratio 13, Glucose Level 81, Calcium Level 8.0L, Corrected Calcium 8.6, Phosphorus Level 1.6L, Magnesium Level 2.0, Total Bilirubin 0.8, Aspartate Amino Transf (AST/SGOT) 25, Alanine Aminotransferase (ALT/SGPT) 15, Alkaline Phosphatase 48, Total Protein 5.8L, Albumin 3.2 Microbiology 11/20/21 MRSA Screen - Final, Complete MRSA not isolated 11/19/21 Blood Culture - Preliminary, Resulted No growth Assessment/Plan Assessment/Plan Assessment/Plan Possible syncopal episode Dizziness Fall Hematoma of abdominal wall with active bleeding Measures 17 x 4 x 10 on imaging Hgb decreased from 10.0 to 7. overnight Atrial fibrillation Given PCC to reverse in anticoagulation in ER Covid Elevated BNP Elevated Myogolbin Plan: Continue cefepime Continue to hold anticoagulation Medicine following for Covid treatment and possible pneumonia. Clear lungs. Continue supplemental oxygen as needed Follow Hgb and transfuse as needed. Reveral of anticoagulation and confined space of abdominal wall should cause tamponade stopping the bleeding. Hgb continuing to trend down, transfuse if Hgb < 7.5. SARA TOMLIN DO 11/22/21 1553: Subjective Subjective/Events-last exam Feeling better. Wanting to go home. Hgb slight drop to 7.5. Tolerating diet. Pain controlled. Denies n/v fever sweats chills shortness of breath or chest pain. Objective Exam General Appearance: No Apparent Distress, WD/WN HEENT: PERRL/EOMI, Normal ENT Inspection Neck: Non Tender, Supple Respiratory: Chest Non Tender, No Accessory Muscle Use, No Respiratory Distress Cardiovascular: No Edema, Normal Peripheral Pulses, Irregularly Irregular Gastrointestinal: soft, other (Hematoma right side of abdomen/flank, tender to touch slightly. Ecchymoses increased in size ) Extremity: Non Tender, No Calf Tenderness Neurologic/Psychiatric: Alert, No Motor/Sensory Deficits, Normal Mood/Affect Skin: Warm/Dry, Ecchymosis Lymphatic: No Adenopathy Assessment/Plan Assessment/Plan Assessment/Plan Possible syncopal episode Dizziness Fall Hematoma of abdominal wall with active bleeding Measures 17 x 4 x 10 on imaging Hgb decreased from 8.3 to 7.5 overnight Atrial fibrillation Given PCC to reverse in anticoagulation in ER Covid Elevated BNP Elevated Myogolbin Feeling better. Follow hgb, if stabilized can dc home from surgical standpoint, otherwise supportive measures. Supervisory-Addendum Brief Verification & Attestation Participated in pt care: history, MDM, physical Personally performed: exam, history, MDM, supervision of care Care discussed with: Medical Student Procedures: n/a Results interpretation: Verified all documentation Verification and Attestation of Medical Student E/M Service A medical student performed and documented this service in my presence. I revie wed and verified all information documented by the medical student and made modifications to such information, when appropriate. I personally performed the physical exam and medical decision making. Sara Tomlin, Nov 22, 2021,15:53 MYA BAKER Nov 22, 2021 07:59 SARA TOMLIN DO Nov 22, 2021 15:53
[2021-11-22 08:16] VITALS: BP 153/70
[2021-11-22] MEDS: VENlafaxine XR 75 MG (EFFEXOR XR) CAP PO SCH (09:06)
[2021-11-22] MEDS: HYDROXYCHLOROQUINE 200 MG (PLAQUENIL) TAB PO SCH (09:06)
[2021-11-22] MEDS: AMIODARONE 200 MG (CORDARONE) TAB PO SCH (09:06)
--- NOTE | 2021-11-22 09:40 | Physical Therapy Daily Note ---
PT Daily Note-Current Subjective Patient agrees to PT. Transfers SCALE: Activities may be completed with or without assistive devices. 3-Hhraopavbq-bdttbbu completes the activity by him/herself with no assistance from a helper. 5-Set-up or Clean-up Assistance-helper sets up or cleans up; patient completes activity. [place] assists only prior to or following the activity. 4-Supervision or Touching Assistance-helper provides verbal cues and/or touching/steadying and/or contact guard assistance as patient completes activity. Assistance may be provided throughout the activity or intermittently. 3-Partial/Moderate Assistance-helper does LESS THAN HALF the effort. [place] lifts, holds or supports trunk or limbs, but provides less than half the effort. 2-Substantial/Maximal Assistance-helper does MORE THAN HALF the effort. [place] lifts or holds trunk or limbs and provides more than half the effort. 8-Yttubgzld-ayfzag does ALL the effort. Patient does none of the effort to complete the activity. Or, the assistance of 2 or more helpers is required for the patient to complete the activity. If activity was not attempted, code reason: 7-Patient Refused. 9-Not Applicable-not attempted and the patient did not perform the activity before the current illness, exacerbation or injury. 10-Not Attempted due to Environmental Limitations-(lack of equipment, weather restraints, etc.). 88-Not Attempted due to Medical Conditions or Safety Concerns. Lying to Sitting/Side of Bed(Q: 3 Sit to Stand (QC): 4 Chair/Emk-pd-Ymcvq Xfer(QC): 3 Gait Training Distance: 150' in room Walk 10 feet (QC): 4 Walk 50 ft with 2 Turns(QC): 4 Walk 150 ft (QC): 4 Gait Assistive Device: FWW slightly unsteady with self correct/noted right LE lag occasionally Assessment Patient up in recliner with needs met. Note SOA with activity. Continue to increase activity as tolerated by patient. PT Emission Technician Goals Emission Technician Goals PT Group Home Goals Time Frame: Nov 27, 2021 Roll Left & Right (QC): 6 Sit to Lying (QC): 6 Lying-Sitting on Side/Bed(QC): 6 Sit to Stand (QC): 6 Chair/Sxc-gl-Xmywc Xfer(QC): 5 Toilet Transfer (QC): 4 Car Transfer (QC): 4 Does the Patient Walk: Yes Walk 10 feet (QC): 4 Walk 50ft with 2 Turns (QC): 4 PT Plan Treatment/Plan Treatment Plan: Continue Plan of Care Treatment Plan: Bed Mobility, Functional Strength, Gait, Therapeutic Exercise, Transfers Treatment Duration: Nov 27, 2021 Frequency: 6 times per week Estimated Hrs Per Day: .25 hour per day Patient and/or Family Agrees t: Yes Time/GCodes Time In: 833 Time Out: 845 Total Billed Treatment Time: 12 Total Billed Treatment 1 visit FA 12 min SABINA YU PT Nov 22, 2021 09:40
[2021-11-22 12:04] VITALS: BP 126/59
--- NOTE | 2021-11-22 13:35 | Discharge Summary ---
Discharge Summary Hospital Course Was the Problem List Reviewed?: Yes Problems/Dx: (1) Traumatic hematoma of abdominal wall Status: Acute Qualifiers: Qualified Codes: S30.1XXA - Contusion of abdominal wall, initial encounter (2) Fall from ground level Status: Acute (3) COVID-19 virus infection Status: Acute (4) Sepsis Status: Acute Hospital Course Date of Admission: Nov 19, 2021 at 21:15 Admission Diagnosis : Traumatic abdominal wall hematoma Family Physician/Provider: Da Truong MD Date of Discharge: 11/22/21 Discharge Diagnosis: Traumatic abdominal wall hematoma Hospital Course: Rad Lutz is an 81 year old male with PMH AFib on Eliquis who presented after a fall and was admitted with traumatic abdominal wall hematoma. He was given Kcentra. His Eliquis was held. Surgery was consulted, but no intervention was required. His hemoglobin trended down. He did not require any transfusions. His course was complicated by COVID but he remained asymptomatic. He required no treatment for COVID. He was debilitated. He was treated with antibiotics for possible pneumonia but those were discontinued when pneumonia was ruled out. He was transferred to [facility] bed for ongoing therapy needs. Labs and Pending Lab Test: Laboratory Tests 11/22/21 05:20: White Blood Count 7.8, Red Blood Count 2.62L, Hemoglobin 7.5L, Hematocrit 24L, Mean Corpuscular Volume 92, Mean Corpuscular Hemoglobin 29, Mean Corpuscular Hemoglobin Concent 31L, Red Cell Distribution Width 15.3H, Platelet Count 146, Mean Platelet Volume 12.3H, Immature Granulocyte % (Auto) 1, Neutrophils (%) (Auto) 76H, Lymphocytes (%) (Auto) 9L, Monocytes (%) (Auto) 10, Eosinophils (%) (Auto) 3, Basophils (%) (Auto) 1, Neutrophils # (Auto) 5.9, Lymphocytes # (Auto) 0.7L, Monocytes # (Auto) 0.8, Eosinophils # (Auto) 0.3, Basophils # (Auto) 0.1, Immature Granulocyte # (Auto) 0.1, Sodium Level 139, Potassium Level 3.6, Chloride Level 108H, Carbon Dioxide Level 21, Anion Gap 10, Blood Urea Nitrogen 11, Creatinine 0.87, Estimat Glomerular Filtration Rate 87, BUN/Creatinine Ratio 13, Glucose Level 81, Calcium Level 8.0L, Corrected Calcium 8.6, Phosphorus Level 1.6L, Magnesium Level 2.0, Total Bilirubin 0.8, Aspartate Amino Transf (AST/SGOT) 25, Alanine Aminotransferase (ALT/SGPT) 15, Alkaline Phosphatase 48, Total Protein 5.8L, Albumin 3.2 11/22/21 09:00: Iron Level [Pending], Total Iron Binding Capacity [Pending], Unsaturated Iron Binding Capacity [Pending], Transferrin % Saturation [Pending], Ferritin [Pending], Vitamin B12 Level [Pending], Folate [Pending] 11/22/21 11:18: Glucometer 90 Microbiology 11/20/21 MRSA Screen - Final, Complete MRSA not isolated 11/19/21 Blood Culture - Preliminary, Resulted No growth Home Meds Active Reported Mirtazapine 7.5 Mg Tablet 7.5 Mg PO HS Docusate Sodium 100 Mg Capsule 100 Mg PO DAILY Metamucil (Psyllium Husk) 0.4 Gram Capsule 0.4 Gm PO BID Eliquis (Apixaban) 5 Mg Tablet 5 Mg PO BID Klor-Con M20 (Potassium Chloride) 20 Meq Tab.er.prt 20 Meq PO DAILY Amiodarone HCl 200 Mg Tablet 100 Mg PO DAILY TAKES OF A 200MG TAB Bumetanide 0.5 Mg Tablet 0.5 Mg PO DAILY Hydroxychloroquine Sulfate 200 Mg Tablet 200 Mg PO DAILY Flomax (Tamsulosin HCl) 0.4 Mg Cap 0.4 Mg PO 1800 Venlafaxine HCl ER (Venlafaxine HCl) 150 Mg Cap.er.24h 150 Mg PO DAILY Assessment/Pt Instructions See instructions Discharge Planning: >30 minutes discharge planning Discharge Instructions Discharge Diet: No Restrictions Activity as Tolerated: Yes Consultations Surgery Discharge Physical Examination Vital Signs Vital Signs Date Time Temp Pulse Resp B/P (MAP) Pulse Ox O2 Delivery O2 Flow Rate FiO2 11/22/21 12:59 66 11/22/21 12:04 37.0 18 126/59 (81) 94 Room Air 11/21/21 20:00 2.00 11/20/21 00:30 28 General Appearance: No Apparent Distress, Obese HEENT: PERRL/EOMI, Pharynx Normal Respiratory: Lungs Clear, Normal Breath Sounds, No Respiratory Distress Cardiovascular: Regular Rate, Rhythm, No Edema, No Murmur Gastrointestinal: Normal Bowel Sounds, Soft, Tenderness, Other (right wall hematoma) Extremity: Normal Inspection, Non Tender, No Pedal Edema Skin: Warm/Dry, Ecchymosis Neurologic/Psychiatric: Alert, Normal Mood/Affect Allergies: Coded Allergies: No Known Drug Allergies (Unverified , 01/29/19) Copy Copies To 1: DA TRUONG MD Discharge Summary Date of Admission Nov 19, 2021 at 21:15 Date of Discharge Discharge Date: Nov 22, 2021 Discharge Time: 13:32 Admission Diagnosis Abdominal wall hematoma Consults/Procedures Consulations Surgery Discharge Diagnosis Abdominal wall hematoma Ground level fall COVID-19 (1) Traumatic hematoma of abdominal wall Status: Acute Qualifiers: Qualified Codes: S30.1XXA - Contusion of abdominal wall, initial encounter (2) Fall from ground level Status: Acute (3) COVID-19 virus infection Status: Acute (4) Sepsis Status: Acute RODO LANCASTER MD Nov 22, 2021 13:35
== END 2021-11-22 13:46 | disposition swing bed (61) | DRG 604 ==
LOC: EDUNIT# 17:28 → ER 17:30 → ICU 21:15 → 4TH 11-20 16:15
PROVIDERS: ADMIT Internal Medicine; ATTEND Internal Medicine
PROC: 8E0ZXY6 Isolation (ICD-10-PCS; principal; 2021-11-19)
DX: S30.1XXA Contusion of abdominal wall, initial encounter (principal); A41.9 Sepsis, unspecified organism; J96.01 Acute respiratory failure with hypoxia; U07.1 COVID-19; I48.20 Chronic atrial fibrillation, unspecified; D68.9 Coagulation defect, unspecified; Z79.899 Other long term (current) drug therapy; Z87.891 Personal history of nicotine dependence; I48.91 Unspecified atrial fibrillation; E78.00 Pure hypercholesterolemia, unspecified; I10 Essential (primary) hypertension; N40.0 Benign prostatic hyperplasia without lower urinary tract symptoms; K21.9 Gastro-esophageal reflux disease without esophagitis; M19.90 Unspecified osteoarthritis, unspecified site; M32.9 Systemic lupus erythematosus, unspecified; F41.9 Anxiety disorder, unspecified; F32.A Depression, unspecified; Z96.652 Presence of left artificial knee joint; I95.9 Hypotension, unspecified; R55 Syncope and collapse; T14.8XXA Other injury of unspecified body region, initial encounter; Z79.01 Long term (current) use of anticoagulants; E78.5 Hyperlipidemia, unspecified; W18.30XA Fall on same level, unspecified, initial encounter
CPT/HCPCS: 36415; 70450; 71045; 71275; 72125; 72128; 72131; 72170; 74177; 80053; 81000; 82550; 82553; 82607; 82728; 82746; 82805; 82947; 83540; 83550; 83605; 83735; 83874; 83880; 84100; 84145; 84439; 84443; 84484; 85007; 85025; 85027; 85379; 85610; 85652; 85730; 86141; 87040; 87081; 87636; 93005; 94760; 99291

== ENCOUNTER 2021-11-22 11:59 | Inpatient (IN) | payer MEDICARE, OTHER ==
[~2021-11-22] VITALS: Ht 182.9 cm; Wt 95.5 kg
[~2021-11-22 11:59] MED LIST changes: +DOCU100C37 PO; +MIRT7.5T8 PO; +PSYL0.4C2 PO
[2021-11-22] MEDS ORDERED: ONDANSETRON 4 MG/2 ML (SDV) Z0FRAN IV PRN (14:00)
[2021-11-22] MEDS ORDERED: RT-ALBUTEROL SULF 2.5 MG/3 ML PRE-MIX VIAL IH PRN (14:00)
[2021-11-22] MEDS ORDERED: ACETAMINOPHEN 500 MG TAB (TYLENOL) PO PRN (14:00)
[2021-11-22] MEDS ORDERED: fentaNYL INJ 100 MCG/2 ML AMP IV PRN (14:00)
--- NOTE | 2021-11-22 14:18 | Physical Therapy Evaluation ---
PT Evaluation-General Medical Diagnosis Admission Date November 22, 2021 Medical Diagnosis: sepsis/pneumonia Onset Date: Nov 19, 2021 Therapy Diagnosis Therapy Diagnosis: generalized weakness/debility Height/Weight Height (Inches): 0 Weight (Pounds): 230 Precautions Precautions/Isolations: Airborne Isolation, Fall Prevention, Standard Precautions Referral Physician: Eric Reason for Referral: Evaluation/Treatment Medical History Pertinent Medical History: HTN, Renal Insufficiency Additional Medical History Pertinent Medical History: HTN, Renal Insufficiency Additional Medical History left TKA; Right knee pain Current History Several days of progressive weakness; syncopal episode with fall while walking in the house Reviewed History: Yes Current History SWB status Reviewed History: Yes Social History Home: Apartment Current Living Status: Alone (with family support) Entry Into Home: Stairs With Railing PT Steps Into Home: 1 Prior Prior Level of Function SCALE: Activities may be completed with or without assistive devices. 4-Acpsdgwqlr-zhwznby completes the activity by him/herself with no assistance from a helper. 5-Set-up or Clean-up Assistance-helper sets up or cleans up; patient completes activity. [place] assists only prior to or following the activity. 4-Supervision or Touching Assistance-helper provides verbal cues and/or touching/steadying and/or contact guard assistance as patient completes activity. Assistance may be provided throughout the activity or intermittently. 3-Partial/Moderate Assistance-helper does LESS THAN HALF the effort. [place] lifts, holds or supports trunk or limbs, but provides less than half the effort. 2-Substantial/Maximal Assistance-helper does MORE THAN HALF the effort. [place] lifts or holds trunk or limbs and provides more than half the effort. 2-Xzdtitufu-llbelb does ALL the effort. Patient does none of the effort to complete the activity. Or, the assistance of 2 or more helpers is required for the patient to complete the activity. If activity was not attempted, code reason: 7-Patient Refused. 9-Not Applicable-not attempted and the patient did not perform the activity before the current illness, exacerbation or injury. 10-Not Attempted due to Environmental Limitations-(lack of equipment, weather restraints, etc.). 88-Not Attempted due to Medical Conditions or Safety Concerns. Bed Mobility: 6 Transfers (B,C,W/C): 6 Gait: 6 Indoor Mobility (Ambulation): Independent Stairs: Needed Some Help Prior Devices Use: Walker PT Evaluation-Current Subjective Patient agrees to PT Objective Patient Orientation: Person, Time, Situation ROM/Strength ROM Lower Extremities bilateral LE WFL Strength Lower Extremities right hip flexion3-/5, knee flexion/extension 3/5; DF/PF 3/5 left hip flexion3/5, knee flexion/extension 3/5; DF/PF 3/5 Integumentary/Posture Integumentary refer to nursing notes Bowel Incontinence: No Bladder Incontinence: No Posture kyphosis and scoliosis Neuromuscular (Tone, Coordination, Reflexes) diminished coordination with ambulation Sensory Vision: Functional Hearing: Impaired Transfers Roll Left & Right (QC): 4 Sit to Lying (QC): 3 Lying to Sitting/Side of Bed(Q: 3 Sit to Stand (QC): 4 Chair/Yvx-eu-Xtutq Xfer(QC): 4 Toilet Transfer (QC): 4 Car Transfer (QC): 10 Gait Does the Patient Walk?: Yes Mode of Locomotion: Walk Anticipated Mode of Locomotion: Walk Walk 10 feet (QC): 4 Walk 50 ft with 2 Turns(QC): 4 Walk 150 ft (QC): 7 Walking 10ft/uneven surface-QC: 4 Distance: 75' Gait Assistive Device: FWW Comments/Gait Description extended UE's with FWW use/ER bilateral LE with shuffle gait sequence with episodes of right LE lag Wheelchair Training Wheel 50 ft with 2 turns (QC): 9 Wheel 150 ft (QC): 9 Type of Wheelchair: N/A Stairs 1 Step (curb) (QC): 10 4 Steps (QC): 9 12 Steps (QC): 9 Balance Sitting Static: Normal Sitting Dynamic: Normal Standing Static: Fair Standing Dynamic: Fair Picking up an Object (QC): 88 Treatment PT/OT cotreat due to patient current functional endurance level. Patient required the skilled to 2 therapist with PT addressing dynamic and static standing and seated balance while OT address ADL's. Patient requires recovery periods due to fatigue. Patient ambulated 75' in room and declined to continue. Assessment/Needs Patient will benefit from skilled PT to address functional strength and mobility to improve current LOF to safely return to home of extended care facility at maximum LOF. Rehab Potential: Fair PT Back Hoe Operator Goals Back Hoe Operator Goals PT Longterm Goals Time Frame: Dec 21, 2021 Roll Left & Right (QC): 6 Sit to Lying (QC): 6 Lying-Sitting on Side/Bed(QC): 6 Sit to Stand (QC): 6 Chair/Gvc-nq-Njchd Xfer(QC): 6 Toilet Transfer (QC): 6 Car Transfer (QC): 6 Does the Patient Walk: Yes Walk 10 feet (QC): 6 Walk 50ft with 2 Turns (QC): 6 Walk 150 ft (QC): 6 Walking 10ft on Uneven Surface: 6 1 Step (curb) (QC): 4 4 Steps (QC): 9 12 Steps (QC): 9 Picking up an Object (QC): 9 Wheel 50 feet with 2 turns (QC: 9 Type: N/A Wheel 150 feet: 9 Type: N/A PT Plan Problem List Problem List: Activity Tolerance, Functional Strength, Safety, Balance, Gait, Transfer, Bed Mobility Treatment/Plan Treatment Plan: Continue Plan of Care Treatment Plan: Bed Mobility, Education, Functional Activity Sallie, Functional Strength, Gait, Safety, Therapeutic Exercise, Transfers Treatment Duration: Dec 21, 2021 Frequency: 6 times per week Estimated Hrs Per Day: .25 hour per day Patient and/or Family Agrees t: Yes Time/GCodes Time In: 1345 Time Out: 1416 Total Billed Treatment Time: 23 (cotreat with OT) Total Billed Treatment 1 visit EVModC 8 min ([id number]) PT (OT eval [id number]) FA 15 min ([id number] cotreat with OT) SABINA YU PT Nov 22, 2021 14:18
--- NOTE | 2021-11-22 14:39 | Occupational Therapy Eval ---
OT Evaluation-General/PLF Medical Diagnosis Admission Date Nov 22, 2021 at 13:57 Medical Diagnosis: sepsis/pneumonia Onset Date: Nov 19, 2021 Therapy Diagnosis Therapy Diagnosis: reduced adl status Height/Weight Height (Inches): 0 Weight (Pounds): 230 Precautions Precautions/Isolations: Airborne Isolation (COVID 19), Contact Isolation, Fall Prevention Referral Referral Reason: Evaluation/Treatment Medical History Pertinent Medical History: HTN, Renal Insufficiency Current History Pt arrived to ER after multiple falls, syncopal episode and c/o dizziness. Tested positive for COVID 19. Per patient, he lives alone in a single story home. His daughter lives in an apartment right behind his house. He reports being indep with adls and his daughter performs all IADLs. He was using a walker at baseline but only walks short distances within the home. Reviewed History: Yes Social History Home: Single Level Current Living Status: Alone Entry Into Home: Stairs With Railing Steps Into Home: 1 ADL-Prior Level of Function SCALE: Activities may be completed with or without assistive devices. 1-Ottnbkobmw-zaapzon completes the activity by him/herself with no assistance from a helper. 5-Set-up or Clean-up Assistance-helper sets up or cleans up; patient completes activity. [place] assists only prior to or following the activity. 4-Supervision or Touching Assistance-helper provides verbal cues and/or touching/steadying and/or contact guard assistance as patient completes activity. Assistance may be provided throughout the activity or intermittently. 3-Partial/Moderate Assistance-helper does LESS THAN HALF the effort. [place] lifts, holds or supports trunk or limbs, but provides less than half the effort. 2-Substantial/Maximal Assistance-helper does MORE THAN HALF the effort. [place] lifts or holds trunk or limbs and provides more than half the effort. 4-Mhuyjoxap-lacakw does ALL the effort. Patient does none of the effort to complete the activity. Or, the assistance of 2 or more helpers is required for the patient to complete the activity. If activity was not attempted, code reason: 7-Patient Refused. 9-Not Applicable-not attempted and the patient did not perform the activity before the current illness, exacerbation or injury. 10-Not Attempted due to Environmental Limitations-(lack of equipment, weather restraints, etc.). 88-Not Attempted due to Medical Conditions or Safety Concerns. Self Care: Independent Functional Cognition: Needed Some Help DME/Equipment: Bath Chair, Grab Bars, Shower OT Current Status Subjective Pt denies pain, agreeable to move to chair to eat lunch. (Currently on liquid diet for possible surgery) Co-treat with PT for part of treatment secondary to need of 2 skilled clinicians to progress indep and safety with adls and functional mobility Appearance Pt left sitting in recliner, all needs within reach at therapy departure. Mental Status/Objective Patient Orientation: Person, Place Attachments: IV, Telemetry Current Hand Dominance: Right Upper Extremity ROM Bilateral shoulder: ~160 degrees AROM Bilateral Elbow: WNL Upper Extremity Strength L shoulder: 4/5 R shoulder: 3+/5 Bilateral Elbow: WFL Bilateral laboratory mechanic helper: Fair ADL-Treatment Eating (QC): 4 (UE shakiness observed but no physical assitance required) Oral Hygiene (QC): 4 (per clinical judgment) Shower/Bathe Self (QC): 3 Upper Body Dressing (QC): 10 Lower Body Dressing (QC): 2 On/Off Footwear (QC): 2 (Pt does not wear socks at home. Still requires max a to don slip on shoes) Toileting Hygiene (QC): 7 Supine>sit: Minimal assistance to elevate torso. Sponge bath completed seated EOB. Significant effort notable when reaching to wash bilateral feet. Cues for cross over method, which patient is able to perform with LLE only (with a lot of effort). Assist needed for thoroughness. Pt able to wash upper body post cues to initiate. Max a to don brief over bilateral feet. Pt does not follow through with cues on compensatory techniques/modifications. Steadying assist required as he stood to pull brief up to waist with zero UE support. He ambulated within room with walker and min a, unsteady on feet with abnormal gait sequence. Kypotic posture with curvature of spine (scoliosis). Pt fatigues quickly and requests to sit down after limited distance. Education OT Patient Education: Correct positioning, Modified ADL techniques, Purpose of tx/functional activities, Safety issues, Transfer techniques Teaching Recipient: Patient Teaching Methods: Demonstration, Discussion Response to Teaching: Verbalize Understanding, Unable to Return Demonstration, Reinforcement Needed OT Short Term Goals Short Term Goals Time Frame: Nov 29, 2021 Eatin Oral hygiene: 5 Toileting hygiene: 3 Shower/bathe self: 3 Upper body dressin Lower body dressin Putting on/taking off footwear: 3 OT Intermediate Goals Customer Manager Goals Time Frame: Dec 11, 2021 Eating (QC): 5 Oral Hygiene (QC): 5 Toileting Hygiene (QC): 6 Shower/Bathe Self (QC): 5 Upper Body Dressing (QC): 5 Lower Body Dressing (QC): 5 On/Off Footwear (QC): 5 1=Demonstrate adherence to instructed precautions during ADL tasks. 2=Patient will verbalize/demonstrate understanding of assistive devices/modifications for ADL. 3=Patient will improve strength/tolerance for activity to enable patient to perform ADL's. OT Education/Plan Problem List/Assessment Assessment: Decreased Activ Tolerance, Decreased Safety Aware, Decreased UE Strength, Impaired Bed Mobility, Impaired Cognition, Impaired Funct Balance, Impaired Self-Care Skills, Restricted Funct UE ROM Discharge Recommendations Plan/Recommendations: Continue POC Therapy Discharge Recommendati: Post Acute OT Treatment Plan/Plan of Care Treatment,Training & Education: Yes Patient would benefit from OT for education, treatment and training to promote independence in ADL's, mobility, safety and/or upper extremity function for ADL's. Plan of Care: ADL Retraining, Caregiver Training, Cognitive Retraining, Functional Mobility, Group Exercise/Act as Ind, UE Funct Exercise/Act Treatment Duration: Dec 11, 2021 Frequency: At least 5 of 7 days/Wk (IRF) Estimated Hrs Per Day: .5 hour per day Agreement: Yes Rehab Potential: Poor Time/GCodes Start Time: 13:53 Stop Time: 14:16 Total Time Billed (hr/min): 23 Billed Treatment Time 1 visit EVM (8 min) ADL (15 min) Rose Ochoa OT Nov 22, 2021 14:39
[2021-11-22 16:26] VITALS: BP 170/71
[2021-11-22 16:53] VITALS: BP 170/71
[2021-11-22] MEDS ORDERED: lisINopril 20 MG (PRINIVIL) TABLET PO NR (17:15)
[2021-11-22] MEDS ORDERED: BUMETANIDE 1 MG (BUMEX) TAB PO NR (17:15)
[2021-11-22] MEDS: TAMSULOSIN 0.4 MG (FLOMAX) CAP PO SCH (17:45)
[2021-11-22 19:05] VITALS: BP 159/66
[2021-11-22] MEDS: MIRTAZAPINE 15 MG (REMERON) TAB PO SCH (20:46)
[2021-11-23] VITALS (7 sets, daily range): BP systolic 105–154; BP diastolic 49–71
[2021-11-23 05:51] LABS: HEMOGLOBIN 7.7 g/dL (13.3-17.7)
[2021-11-23 06:02] LABS: ALBUMIN 3.3 GM/DL (3.2-4.5)
[2021-11-23 06:03] LABS: POTASSIUM 3.5 MMOL/L (3.6-5.0)
[2021-11-23 06:04] LABS: CALCIUM 8.4 MG/DL (8.5-10.1)
[2021-11-23 06:05] LABS: TOTAL PROTEIN 6.1 GM/DL (6.4-8.2)
[2021-11-23 06:09] LABS: CREATININE SERUM 1.03 MG/DL (0.60-1.30)
[2021-11-23] MEDS: MAGNESIUM 1 GM/100 ML IVPB 100 ML IV SCH (06:34)
[2021-11-23] MEDS: KCL 20 MEQ TAB (K-DUR) PO SCH (06:34)
[2021-11-23] MEDS: POTASSIUM CL 10MEQ/50ML IVPB 50 ML IV SCH (06:34)
[2021-11-23] MEDS ORDERED: KCL 20 MEQ TAB (K-DUR) PO ONE (09:00)
[2021-11-23] MEDS: BUMETANIDE 1 MG (BUMEX) TAB PO SCH (09:31)
[2021-11-23] MEDS: HYDROXYCHLOROQUINE 200 MG (PLAQUENIL) TAB PO SCH (09:31)
[2021-11-23] MEDS: lisINopril 20 MG (PRINIVIL) TABLET PO SCH (09:31)
[2021-11-23] MEDS: AMIODARONE 200 MG (CORDARONE) TAB PO SCH (09:31)
[2021-11-23] MEDS: VENlafaxine XR 75 MG (EFFEXOR XR) CAP PO SCH (09:31)
--- NOTE | 2021-11-23 11:15 | Physical Therapy Daily Note ---
PT Daily Note-Current Subjective Pt in recliner upon arrival and agrees to PT. Says he is pretty tired and declines to walk. Mental Status Patient Orientation: Person, Place, Time Transfers SCALE: Activities may be completed with or without assistive devices. 1-Pagndtqhqg-vkggtxy completes the activity by him/herself with no assistance from a helper. 5-Set-up or Clean-up Assistance-helper sets up or cleans up; patient completes activity. [place] assists only prior to or following the activity. 4-Supervision or Touching Assistance-helper provides verbal cues and/or touching/steadying and/or contact guard assistance as patient completes activity. Assistance may be provided throughout the activity or intermittently. 3-Partial/Moderate Assistance-helper does LESS THAN HALF the effort. [place] lifts, holds or supports trunk or limbs, but provides less than half the effort. 2-Substantial/Maximal Assistance-helper does MORE THAN HALF the effort. [place] lifts or holds trunk or limbs and provides more than half the effort. 8-Gikbnrqek-vggwpf does ALL the effort. Patient does none of the effort to complete the activity. Or, the assistance of 2 or more helpers is required for the patient to complete the activity. If activity was not attempted, code reason: 7-Patient Refused. 9-Not Applicable-not attempted and the patient did not perform the activity before the current illness, exacerbation or injury. 10-Not Attempted due to Environmental Limitations-(lack of equipment, weather restraints, etc.). 88-Not Attempted due to Medical Conditions or Safety Concerns. Exercises Supine Ex: Ankle pumps, Quad Set, Glut sets, Heel Slides, Hip abd/add Supine Reps: 20 Treatments All needs met and call light nearby as PT departs. Assessment Current Status: Fair Progress Pt very lethargic and tired and requires verbal and tactile cues in order to stay on task. PT Consulting Sales Manager Goals Group Home Goals PT Consulting Sales Manager Goals Time Frame: Dec 21, 2021 Roll Left & Right (QC): 6 Sit to Lying (QC): 6 Lying-Sitting on Side/Bed(QC): 6 Sit to Stand (QC): 6 Chair/Yyz-pe-Pjxpr Xfer(QC): 6 Toilet Transfer (QC): 6 Car Transfer (QC): 6 Does the Patient Walk: Yes Walk 10 feet (QC): 6 Walk 50ft with 2 Turns (QC): 6 Walk 150 ft (QC): 6 Walking 10ft on Uneven Surface: 6 1 Step (curb) (QC): 4 4 Steps (QC): 9 12 Steps (QC): 9 Picking up an Object (QC): 9 Wheel 50 feet with 2 turns (QC: 9 Type: N/A Wheel 150 feet: 9 Type: N/A PT Plan Problem List Problem List: Activity Tolerance, Functional Strength Treatment/Plan Treatment Plan: Continue Plan of Care Treatment Plan: Bed Mobility, Education, Functional Activity Sallie, Functional Strength, Gait, Safety, Therapeutic Exercise, Transfers Treatment Duration: Dec 21, 2021 Frequency: 6 times per week Estimated Hrs Per Day: .25 hour per day Patient and/or Family Agrees t: Yes Safety Risks/Education Patient Education: Correct Positioning Teaching Recipient: Patient Teaching Methods: Discussion Response to Teaching: Return Demonstration Time/GCodes Time In: 1058 Time Out: 1108 Total Billed Treatment Time: 10 Total Billed Treatment 1, Ex ARMANDO MERINO PTA Nov 23, 2021 11:15
[2021-11-23] MEDS: TAMSULOSIN 0.4 MG (FLOMAX) CAP PO SCH (17:18)
[2021-11-23] MEDS: MIRTAZAPINE 15 MG (REMERON) TAB PO SCH (21:10)
[2021-11-24 04:00] VITALS: BP 147/67
[2021-11-24 07:51] LABS: BASOPHILS # (AUTO) 0.1 10^3/uL (0.0-0.1); BASOPHILS % (AUTO) 1 % (0-10); EOSINOPHILS # (AUTO) 0.4 10^3/uL (0.0-0.3); EOSINOPHILS % (AUTO) 5 % (0-10); HEMATOCRIT 27 % (40-54); HEMOGLOBIN 8.4 g/dL (13.3-17.7); LYMPHOCYTES # (AUTO) 0.7 10^3/uL (1.0-4.0); LYMPHOCYTES % (AUTO) 10 % (12-44); MEAN CORPUSCULAR HEMOGLOBIN 29 pg (25-34); MEAN CORPUSCULAR HGB CONC 31 g/dL (32-36); MEAN CORPUSCULAR VOLUME 93 fL (80-99); MEAN PLATELET VOLUME 13.2 fL (9.0-12.2); MONOCYTES # (AUTO) 0.7 10^3/uL (0.0-1.0); MONOCYTES % (AUTO) 10 % (0-12); NEUTROPHILS % (AUTO) 73 % (42-75); PLATELET COUNT 166 10^3/uL (130-400); WHITE BLOOD COUNT 6.8 10^3/uL (4.3-11.0)
[2021-11-24 08:00] LABS: ALBUMIN 3.5 GM/DL (3.2-4.5); POTASSIUM 3.5 MMOL/L (3.6-5.0)
[2021-11-24 08:01] LABS: CALCIUM 8.7 MG/DL (8.5-10.1)
[2021-11-24 08:02] LABS: TOTAL PROTEIN 6.7 GM/DL (6.4-8.2)
[2021-11-24 08:04] LABS: BILIRUBIN,TOTAL 1.3 MG/DL (0.1-1.0)
[2021-11-24] MEDS: POTASSIUM CL 10MEQ/50ML IVPB 50 ML IV SCH (08:05)
[2021-11-24 08:06] LABS: CREATININE SERUM 1.04 MG/DL (0.60-1.30)
[2021-11-24] MEDS: MAGNESIUM 1 GM/100 ML IVPB 100 ML IV SCH (08:06)
[2021-11-24] MEDS: KCL 20 MEQ TAB (K-DUR) PO SCH ×2 (08:06→08:17)
[2021-11-24 08:09] LABS: MAGNESIUM 2.1 MG/DL (1.6-2.4)
[2021-11-24] MEDS ORDERED: KCL 10 MEQ TAB (MICRO K) PO ONE (08:15)
[2021-11-24] MEDS: lisINopril 20 MG (PRINIVIL) TABLET PO SCH (08:17)
[2021-11-24] MEDS: VENlafaxine XR 75 MG (EFFEXOR XR) CAP PO SCH (08:17)
[2021-11-24] MEDS: BUMETANIDE 1 MG (BUMEX) TAB PO SCH (08:17)
[2021-11-24] MEDS: AMIODARONE 200 MG (CORDARONE) TAB PO SCH (08:17)
[2021-11-24] MEDS: HYDROXYCHLOROQUINE 200 MG (PLAQUENIL) TAB PO SCH (08:18)
[2021-11-24 08:54] VITALS: BP 147/73
[2021-11-24 12:32] VITALS: BP 130/78
[2021-11-24 15:54] VITALS: BP 122/58
[2021-11-24] MEDS: TAMSULOSIN 0.4 MG (FLOMAX) CAP PO SCH (17:59)
[2021-11-24 20:20] VITALS: BP 143/65
[2021-11-24] MEDS: MIRTAZAPINE 15 MG (REMERON) TAB PO SCH (20:47)
[2021-11-25] VITALS (8 sets, daily range): BP systolic 92–144; BP diastolic 44–71
[2021-11-25 08:48] LABS: BASOPHILS % (AUTO) 1 % (0-10); EOSINOPHILS # (AUTO) 0.3 10^3/uL (0.0-0.3); EOSINOPHILS % (AUTO) 6 % (0-10); HEMATOCRIT 27 % (40-54); HEMOGLOBIN 8.2 g/dL (13.3-17.7); LYMPHOCYTES # (AUTO) 0.6 10^3/uL (1.0-4.0); LYMPHOCYTES % (AUTO) 10 % (12-44); MEAN CORPUSCULAR HEMOGLOBIN 29 pg (25-34); MEAN CORPUSCULAR HGB CONC 31 g/dL (32-36); MEAN CORPUSCULAR VOLUME 93 fL (80-99); MEAN PLATELET VOLUME 12.2 fL (9.0-12.2); MONOCYTES # (AUTO) 0.6 10^3/uL (0.0-1.0); MONOCYTES % (AUTO) 10 % (0-12); NEUTROPHILS # (AUTO) 4.4 10^3/uL (1.8-7.8); NEUTROPHILS % (AUTO) 73 % (42-75); PLATELET COUNT 178 10^3/uL (130-400)
[2021-11-25] MEDS: BUMETANIDE 1 MG (BUMEX) TAB PO SCH (08:56)
[2021-11-25] MEDS: VENlafaxine XR 75 MG (EFFEXOR XR) CAP PO SCH (08:56)
[2021-11-25] MEDS: HYDROXYCHLOROQUINE 200 MG (PLAQUENIL) TAB PO SCH (08:56)
[2021-11-25] MEDS: lisINopril 20 MG (PRINIVIL) TABLET PO SCH (08:56)
[2021-11-25] MEDS: AMIODARONE 200 MG (CORDARONE) TAB PO SCH (08:56)
[2021-11-25 08:58] LABS: ALBUMIN 3.4 GM/DL (3.2-4.5); POTASSIUM 3.7 MMOL/L (3.6-5.0)
[2021-11-25 08:59] LABS: CALCIUM 8.7 MG/DL (8.5-10.1)
[2021-11-25 09:00] LABS: TOTAL PROTEIN 6.4 GM/DL (6.4-8.2)
[2021-11-25 09:02] LABS: BILIRUBIN,TOTAL 1.4 MG/DL (0.1-1.0)
[2021-11-25 09:04] LABS: CREATININE SERUM 0.98 MG/DL (0.60-1.30)
[2021-11-25] MEDS: POTASSIUM CL 10MEQ/50ML IVPB 50 ML IV SCH (09:14)
[2021-11-25] MEDS: MAGNESIUM 1 GM/100 ML IVPB 100 ML IV SCH (09:14)
--- NOTE | 2021-11-25 11:17 | Occupational Ther Daily Note ---
OT Current Status-Daily Note Subjective Pt alert, sitting in recliner. Pt agrees to therapy. Per nrsg, pt declines bathing or toileting at this time. Mental Status/Objective Patient Orientation: Person, Place, Time, Situation Attachments: IV ADL-Treatment Therapy Code Descriptions/Definitions Functional [place] Measure: 0=Not Assessed/NA 4=Minimal Assistance 1=Total Assistance 5=Supervision or Setup 2=Maximal Assistance 6=Modified [place] 3=Moderate Assistance 7=Complete IndependenceSCALE: Activities may be completed with or without assistive devices. 4-Vzdmvqcowz-khwsvge completes the activity by him/herself with no assistance from a helper. 5-Set-up or Clean-up Assistance-helper sets up or cleans up; patient completes activity. [place] assists only prior to or following the activity. 4-Supervision or Touching Assistance-helper provides verbal cues and/or touching/steadying and/or contact guard assistance as patient completes activity. Assistance may be provided throughout the activity or intermittently. 3-Partial/Moderate Assistance-helper does LESS THAN HALF the effort. [place] lifts, holds or supports trunk or limbs, but provides less than half the effort. 2-Substantial/Maximal Assistance-helper does MORE THAN HALF the effort. [place] lifts or holds trunk or limbs and provides more than half the effort. 3-Bawzovcob-bwvwmw does ALL the effort. Patient does none of the effort to complete the activity. Or, the assistance of 2 or more helpers is required for the patient to complete the activity. If activity was not attempted, code reason: 7-Patient Refused. 9-Not Applicable-not attempted and the patient did not perform the activity before the current illness, exacerbation or injury. 10-Not Attempted due to Environmental Limitations-(lack of equipment, weather restraints, etc.). 88-Not Attempted due to Medical Conditions or Safety Concerns. Other Treatment Co-treat with PT [id number], 2 clinicians required due to decreased activity tolerance and decrease fall risk. PT focusing on ambulation and increasing activity tolerance while OT focusing in B UE strengthening and increasing activity tolerance. Pt completed 3 B UE exercises against gravity. Due to decreased AROM of L shldr, AA completed for shldr flexion 15 reps. B shldr abd/add, 10 reps. B UE chest presses 10 reps with recovery break at 7th rep. See PT notes for ambulation progress. After session, pt sitting in recliner with call light/phone in reach. All needs met. OT Short Term Goals Short Term Goals Time Frame: Nov 29, 2021 Eatin Oral hygiene: 5 Toileting hygiene: 3 Shower/bathe self: 3 Upper body dressin Lower body dressin Putting on/taking off footwear: 3 OT Valet Parker Goals Valet Parker Goals Time Frame: Dec 11, 2021 Eating (QC): 5 Oral Hygiene (QC): 5 Toileting Hygiene (QC): 6 Shower/Bathe Self (QC): 5 Upper Body Dressing (QC): 5 Lower Body Dressing (QC): 5 On/Off Footwear (QC): 5 1=Demonstrate adherence to instructed precautions during ADL tasks. 2=Patient will verbalize/demonstrate understanding of assistive devices/modifications for ADL. 3=Patient will improve strength/tolerance for activity to enable patient to perform ADL's. OT Education/Plan Problem List/Assessment Assessment: Decreased Activ Tolerance, Decreased UE Strength Discharge Recommendations Plan/Recommendations: Continue POC Treatment Plan/Plan of Care Patient would benefit from OT for education, treatment and training to promote independence in ADL's, mobility, safety and/or upper extremity function for ADL's. Plan of Care: ADL Retraining, Caregiver Training, Cognitive Retraining, Functional Mobility, Group Exercise/Act as Ind, UE Funct Exercise/Act Treatment Duration: Dec 11, 2021 Frequency: At least 5 of 7 days/Wk (IRF) Estimated Hrs Per Day: .5 hour per day Agreement: Yes Rehab Potential: Poor Time/GCodes Start Time: 10:35 Stop Time: 10:56 Total Time Billed (hr/min): 21 Billed Treatment Time 1 visit-FA 1 (21 min) Co--treat with PT [id number], individual [id number] ROSARIO JOHNSON Nov 25, 2021 11:17
--- NOTE | 2021-11-25 11:22 | Physical Therapy Daily Note ---
PT Daily Note-Current Subjective Patient agrees to PT/OT cotreat. Mental Status Patient Orientation: Person, Time Transfers SCALE: Activities may be completed with or without assistive devices. 3-Lxgskvmqtr-chqggao completes the activity by him/herself with no assistance from a helper. 5-Set-up or Clean-up Assistance-helper sets up or cleans up; patient completes activity. [place] assists only prior to or following the activity. 4-Supervision or Touching Assistance-helper provides verbal cues and/or touching/steadying and/or contact guard assistance as patient completes activity. Assistance may be provided throughout the activity or intermittently. 3-Partial/Moderate Assistance-helper does LESS THAN HALF the effort. [place] lifts, holds or supports trunk or limbs, but provides less than half the effort. 2-Substantial/Maximal Assistance-helper does MORE THAN HALF the effort. [place] lifts or holds trunk or limbs and provides more than half the effort. 1-Vkmmwubwu-veosot does ALL the effort. Patient does none of the effort to c omplete the activity. Or, the assistance of 2 or more helpers is required for the patient to complete the activity. If activity was not attempted, code reason: 7-Patient Refused. 9-Not Applicable-not attempted and the patient did not perform the activity before the current illness, exacerbation or injury. 10-Not Attempted due to Environmental Limitations-(lack of equipment, weather restraints, etc.). 88-Not Attempted due to Medical Conditions or Safety Concerns. Sit to Stand (QC): 4 Gait Training Distance: 100' Walk 10 feet (QC): 3 Walk 50 ft with 2 Turns(QC): 3 Gait Assistive Device: FWW extended UE's with FWW use and shuffle/ataxic gait sequence Assessment PT/OT cotreat due to patient balance, gait and ADL's deficits. Patient is min to mod assist with gait due to extended UE's with FWW use and shuffle/ataxic gait sequence. ASsist to don shoes. PT Flight Teacher Goals Half-Way Goals PT Half-Way Goals Time Frame: Dec 21, 2021 Roll Left & Right (QC): 6 Sit to Lying (QC): 6 Lying-Sitting on Side/Bed(QC): 6 Sit to Stand (QC): 6 Chair/Xrp-mg-Ofhky Xfer(QC): 6 Toilet Transfer (QC): 6 Car Transfer (QC): 6 Does the Patient Walk: Yes Walk 10 feet (QC): 6 Walk 50ft with 2 Turns (QC): 6 Walk 150 ft (QC): 6 Walking 10ft on Uneven Surface: 6 1 Step (curb) (QC): 4 4 Steps (QC): 9 12 Steps (QC): 9 Picking up an Object (QC): 9 Wheel 50 feet with 2 turns (QC: 9 Type: N/A Wheel 150 feet: 9 Type: N/A PT Plan Treatment/Plan Treatment Plan: Continue Plan of Care Treatment Plan: Bed Mobility, Education, Functional Activity Sallie, Functional Strength, Gait, Safety, Therapeutic Exercise, Transfers Treatment Duration: Dec 21, 2021 Frequency: 6 times per week Estimated Hrs Per Day: .25 hour per day Patient and/or Family Agrees t: Yes Discharge Recommendations Therapy Discharge Recommendati: Other, See Comments (retirement facility) Time/GCodes Time In: 1041 Time Out: 1056 Total Billed Treatment Time: 15 Total Billed Treatment 1 visit GT 15 min (cotreat with OT) SABINA YU PT Nov 25, 2021 11:22
--- NOTE | 2021-11-25 16:10 | Progress Note - Hospitalist ---
Subjective HPI/CC On Admission Date Seen by Provider: Nov 25, 2021 Time Seen by Provider: 10:55 Subjective/Events-last exam He is still a bit weak. He has no other complaints or concerns. Objective Exam Vital Signs Vital Signs Date Time Temp Pulse Resp B/P (MAP) Pulse Ox O2 Delivery O2 Flow Rate FiO2 11/25/21 13:00 62 11/25/21 11:35 36.4 18 107/57 (74) 95 Room Air 11/24/21 15:54 1.50 11/22/21 16:53 28 Capillary Refill : General Appearance: No Apparent Distress, Obese Respiratory: Lungs Clear, No Respiratory Distress Cardiovascular: Regular Rate, Rhythm, No Murmur Gastrointestinal: Normal Bowel Sounds, Soft Extremity: Normal Inspection, No Pedal Edema Neurologic/Psychiatric: Alert, Normal Mood/Affect Skin: Normal Color, Warm/Dry Results/Procedures Lab Laboratory Tests 11/25/21 08:20 Patient resulted labs reviewed. 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
[2021-11-25] MEDS: TAMSULOSIN 0.4 MG (FLOMAX) CAP PO SCH (16:51)
[2021-11-25] MEDS: MIRTAZAPINE 15 MG (REMERON) TAB PO SCH (20:10)
[2021-11-26 03:51] VITALS: BP 126/69
[2021-11-26 05:52] LABS: POTASSIUM 3.6 MMOL/L (3.6-5.0)
[2021-11-26 05:53] LABS: CALCIUM 8.5 MG/DL (8.5-10.1)
[2021-11-26 05:57] LABS: CREATININE SERUM 1.1 MG/DL (0.60-1.30)
[2021-11-26] MEDS ORDERED: KCL 20 MEQ TAB (K-DUR) PO ONE (06:00)
[2021-11-26] MEDS: KCL 20 MEQ TAB (K-DUR) PO SCH (06:01)
[2021-11-26] MEDS: MAGNESIUM 1 GM/100 ML IVPB 100 ML IV SCH (06:01)
[2021-11-26] MEDS: POTASSIUM CL 10MEQ/50ML IVPB 50 ML IV SCH (06:01)
[2021-11-26 07:47] VITALS: BP 133/67
--- NOTE | 2021-11-26 09:24 | Physical Therapy Daily Note ---
PT Daily Note-Current Subjective Patient agrees to PT. Mental Status Patient Orientation: Normal For Age Transfers SCALE: Activities may be completed with or without assistive devices. 3-Pcipuugpjw-cnsbpxk completes the activity by him/herself with no assistance from a helper. 5-Set-up or Clean-up Assistance-helper sets up or cleans up; patient completes activity. [place] assists only prior to or following the activity. 4-Supervision or Touching Assistance-helper provides verbal cues and/or touching/steadying and/or contact guard assistance as patient completes activity. Assistance may be provided throughout the activity or intermittently. 3-Partial/Moderate Assistance-helper does LESS THAN HALF the effort. [place] lifts, holds or supports trunk or limbs, but provides less than half the effort. 2-Substantial/Maximal Assistance-helper does MORE THAN HALF the effort. [place] lifts or holds trunk or limbs and provides more than half the effort. 6-Hduhcsdui-irdesd does ALL the effort. Patient does none of the effort to complete the activity. Or, the assistance of 2 or more helpers is required for the patient to complete the activity. If activity was not attempted, code reason: 7-Patient Refused. 9-Not Applicable-not attempted and the patient did not perform the activity befo re the current illness, exacerbation or injury. 10-Not Attempted due to Environmental Limitations-(lack of equipment, weather re straints, etc.). 88-Not Attempted due to Medical Conditions or Safety Concerns. Roll Left & Right (QC): 3 Sit to Lying (QC): 3 Lying to Sitting/Side of Bed(Q: 3 Sit to Stand (QC): 3 Chair/Ijf-ww-Dlumh Xfer(QC): 3 Toilet Transfer (QC): 3 Car Transfer (QC): 10 Patient reports he has a lift chair and sleeps in it Gait Training Distance: 150' Walk 10 feet (QC): 4 Walk 50 ft with 2 Turns(QC): 4 Walk 150 ft (QC): 4 Walking 10ft/uneven surface-QC: 10 Gait Assistive Device: FWW extended UE's with FWW use and shuffle gait sequence with minimal foot clearance Stair Training 1 Step (curb) (QC): 7 4 Steps (QC): 9 12 Steps (QC): 9 Assessment Patient up in recliner with needs met. Patient continues to be a high fall risk and is unaware of safety concerns. From a PT standpoint and safety concern, patient would benefit from 01/12 care. PT Alf Goals Alf Goals PT Sterile Instrument Technician Goals Time Frame: Dec 21, 2021 Roll Left & Right (QC): 6 Sit to Lying (QC): 6 Lying-Sitting on Side/Bed(QC): 6 Sit to Stand (QC): 6 Chair/Rll-ku-Opfvs Xfer(QC): 6 Toilet Transfer (QC): 6 Car Transfer (QC): 6 Does the Patient Walk: Yes Walk 10 feet (QC): 6 Walk 50ft with 2 Turns (QC): 6 Walk 150 ft (QC): 6 Walking 10ft on Uneven Surface: 6 1 Step (curb) (QC): 4 4 Steps (QC): 9 12 Steps (QC): 9 Picking up an Object (QC): 9 Wheel 50 feet with 2 turns (QC: 9 Type: N/A Wheel 150 feet: 9 Type: N/A PT Plan Treatment/Plan Treatment Plan: Continue Plan of Care Treatment Plan: Bed Mobility, Education, Functional Activity Sallie, Functional Strength, Gait, Safety, Therapeutic Exercise, Transfers Treatment Duration: Dec 21, 2021 Frequency: 6 times per week Estimated Hrs Per Day: .25 hour per day Patient and/or Family Agrees t: Yes Time/GCodes Time In: 836 Time Out: 851 Total Billed Treatment Time: 15 Total Billed Treatment 1 visit FA 15 min SABINA YU PT Nov 26, 2021 09:24
[2021-11-26] MEDS: lisINopril 20 MG (PRINIVIL) TABLET PO SCH (09:37)
[2021-11-26] MEDS: HYDROXYCHLOROQUINE 200 MG (PLAQUENIL) TAB PO SCH (09:37)
[2021-11-26] MEDS: VENlafaxine XR 75 MG (EFFEXOR XR) CAP PO SCH (09:37)
[2021-11-26] MEDS: BUMETANIDE 1 MG (BUMEX) TAB PO SCH (09:37)
[2021-11-26] MEDS: AMIODARONE 200 MG (CORDARONE) TAB PO SCH (09:37)
[2021-11-26 11:16] VITALS: BP 108/65
--- NOTE | 2021-11-26 12:57 | Occupational Ther Daily Note ---
OT Current Status-Daily Note Subjective Pt alert, sitting in recliner. Pt agrees to therapy. No c/o pain Mental Status/Objective Patient Orientation: Person, Place, Time, Situation Attachments: IV ADL-Treatment Pt TLINGIT & HAIDA, difficult for communication. Pt able to set up own meal and use regular utensils to eat. COON attempted to discuss how pt gets meals or if he makes own meals. Pt answered question though talking low/mumbled, unable to decipher pt's routine. After therapy, pt sitting in recliner eating lunch. Call light/phone in reach. All needs met in room. Therapy Code Descriptions/Definitions Functional [place] Measure: 0=Not Assessed/NA 4=Minimal Assistance 1=Total Assistance 5=Supervision or Setup 2=Maximal Assistance 6=Modified [place] 3=Moderate Assistance 7=Complete IndependenceSCALE: Activities may be completed with or without assistive devices. 3-Dsamkehvsp-rukdgzu completes the activity by him/herself with no assistance from a helper. 5-Set-up or Clean-up Assistance-helper sets up or cleans up; patient completes activity. [place] assists only prior to or following the activity. 4-Supervision or Touching Assistance-helper provides verbal cues and/or touching/steadying and/or contact guard assistance as patient completes activity. Assistance may be provided throughout the activity or intermittently. 3-Partial/Moderate Assistance-helper does LESS THAN HALF the effort. [place] lifts, holds or supports trunk or limbs, but provides less than half the effort. 2-Substantial/Maximal Assistance-helper does MORE THAN HALF the effort. [place] lifts or holds trunk or limbs and provides more than half the effort. 7-Vnhcolobx-lcmwee does ALL the effort. Patient does none of the effort to complete the activity. Or, the assistance of 2 or more helpers is required for the patient to complete the activity. If activity was not attempted, code reason: 7-Patient Refused. 9-Not Applicable-not attempted and the patient did not perform the activity before the current illness, exacerbation or injury. 10-Not Attempted due to Environmental Limitations-(lack of equipment, weather restraints, etc.). 88-Not Attempted due to Medical Conditions or Safety Concerns. Eating (QC): 6 OT Short Term Goals Short Term Goals Time Frame: Nov 29, 2021 Eatin Oral hygiene: 5 Toileting hygiene: 3 Shower/bathe self: 3 Upper body dressin Lower body dressin Putting on/taking off footwear: 3 OT Custodial Goals Assembler Tubing Goals Time Frame: Dec 11, 2021 Eating (QC): 5 Oral Hygiene (QC): 5 Toileting Hygiene (QC): 6 Shower/Bathe Self (QC): 5 Upper Body Dressing (QC): 5 Lower Body Dressing (QC): 5 On/Off Footwear (QC): 5 1=Demonstrate adherence to instructed precautions during ADL tasks. 2=Patient will verbalize/demonstrate understanding of assistive devices/modifications for ADL. 3=Patient will improve strength/tolerance for activity to enable patient to perform ADL's. OT Education/Plan Problem List/Assessment Assessment: Decreased Activ Tolerance Discharge Recommendations Plan/Recommendations: Continue POC Therapy Discharge Recommendati: 24 Hour Supervision Treatment Plan/Plan of Care Patient would benefit from OT for education, treatment and training to promote independence in ADL's, mobility, safety and/or upper extremity function for ADL's. Plan of Care: ADL Retraining, Caregiver Training, Cognitive Retraining, Functional Mobility, Group Exercise/Act as Ind, UE Funct Exercise/Act Treatment Duration: Dec 11, 2021 Frequency: At least 5 of 7 days/Wk (IRF) Estimated Hrs Per Day: .5 hour per day Agreement: Yes Rehab Potential: Poor Time/GCodes Start Time: 12:50 Stop Time: 13:05 Total Time Billed (hr/min): 15 Billed Treatment Time 1 visit-ADL 1 (15 min) ROSARIO JOHNSON Nov 26, 2021 12:57
[2021-11-26 15:30] VITALS: BP 131/58
[2021-11-26] MEDS: TAMSULOSIN 0.4 MG (FLOMAX) CAP PO SCH (17:35)
[2021-11-26 19:30] VITALS: BP 131/63
[2021-11-26] MEDS: MIRTAZAPINE 15 MG (REMERON) TAB PO SCH (20:38)
[2021-11-27 00:32] VITALS: BP 126/59
[2021-11-27 04:19] VITALS: BP 124/60
[2021-11-27 07:24] LABS: POTASSIUM 3.9 MMOL/L (3.6-5.0)
[2021-11-27 07:25] LABS: CALCIUM 8.7 MG/DL (8.5-10.1)
[2021-11-27 07:29] LABS: CREATININE SERUM 1.11 MG/DL (0.60-1.30)
[2021-11-27 07:31] LABS: MAGNESIUM 1.8 MG/DL (1.6-2.4)
[2021-11-27] MEDS: KCL 20 MEQ TAB (K-DUR) PO SCH (07:41)
[2021-11-27] MEDS: POTASSIUM CL 10MEQ/50ML IVPB 50 ML IV SCH (07:41)
[2021-11-27] MEDS: MAGNESIUM 1 GM/100 ML IVPB 100 ML IV SCH (07:41)
[2021-11-27 07:48] VITALS: BP 138/63
[2021-11-27] MEDS: BUMETANIDE 1 MG (BUMEX) TAB PO SCH (09:09)
[2021-11-27] MEDS: VENlafaxine XR 75 MG (EFFEXOR XR) CAP PO SCH (09:09)
[2021-11-27] MEDS: lisINopril 20 MG (PRINIVIL) TABLET PO SCH (09:10)
[2021-11-27] MEDS: HYDROXYCHLOROQUINE 200 MG (PLAQUENIL) TAB PO SCH (09:10)
[2021-11-27] MEDS: AMIODARONE 200 MG (CORDARONE) TAB PO SCH (09:10)
--- NOTE | 2021-11-27 10:11 | Physical Therapy Daily Note ---
PT Daily Note-Current Subjective Patient sitting in chair upon PT arrival, agreeable to treatment but does not respond to questions quickly or to all questions. Seems confused about his current situation and is unable to report his current location, nurse notified. Mental Status Patient Orientation: Person Transfers SCALE: Activities may be completed with or without assistive devices. 3-Tdvhnvccfo-epbfmhx completes the activity by him/herself with no assistance from a helper. 5-Set-up or Clean-up Assistance-helper sets up or cleans up; patient completes activity. [place] assists only prior to or following the activity. 4-Supervision or Touching Assistance-helper provides verbal cues and/or touching/steadying and/or contact guard assistance as patient completes activity. Assistance may be provided throughout the activity or intermittently. 3-Partial/Moderate Assistance-helper does LESS THAN HALF the effort. [place] lifts, holds or supports trunk or limbs, but provides less than half the effort. 2-Substantial/Maximal Assistance-helper does MORE THAN HALF the effort. [place] lifts or holds trunk or limbs and provides more than half the effort. 7-Noaamxehm-qcywjz does ALL the effort. Patient does none of the effort to complete the activity. Or, the assistance of 2 or more helpers is required for the patient to complete the activity. If activity was not attempted, code reason: 7-Patient Refused. 9-Not Applicable-not attempted and the patient did not perform the activity before the current illness, exacerbation or injury. 10-Not Attempted due to Environmental Limitations-(lack of equipment, weather restraints, etc.). 88-Not Attempted due to Medical Conditions or Safety Concerns. Sit to Stand (QC): 3 Chair/Ggq-lq-Flwlx Xfer(QC): 3 Gait Training Does the Patient Walk?: Yes Distance: 40 Walk 10 feet (QC): 2 Gait Persons Needed: 1 Gait Assistive Device: FWW Assessment Current Status: Poor Progress Patient more confused at time of treatment. Nurse reports that his orientation varies throughout the day. Patient performs all observed transfer with mod A. He ambulates 20 feet to the door, then 20 feet back to the chair with FWW, with max A a times. However ~6 feet from the chair on the return trip, patient stopped. He would not move for ~1-2 minutes and would not respond to questions or commands. He did not appear to be losing consciousness, but would not respond to any stimuli. Eventually he began to move again, however he kept the FWW too far from his body and began trying to sit while he was still turning and too far from the chair. Required max A for progression and to avoid falling. Patient in chair post treatment with all needs met, nursing notified, call light in hand, chair alarm activated. Full PPE including gown, gloves, 3M NIOS[employer] mask and glasses were donned prior to entry. PT Long-Term Goals Long-Term Goals PT Cardiovascular Lab Director Goals Time Frame: Dec 21, 2021 Roll Left & Right (QC): 6 Sit to Lying (QC): 6 Lying-Sitting on Side/Bed(QC): 6 Sit to Stand (QC): 6 Chair/Hbz-hg-Hzwaq Xfer(QC): 6 Toilet Transfer (QC): 6 Car Transfer (QC): 6 Does the Patient Walk: Yes Walk 10 feet (QC): 6 Walk 50ft with 2 Turns (QC): 6 Walk 150 ft (QC): 6 Walking 10ft on Uneven Surface: 6 1 Step (curb) (QC): 4 4 Steps (QC): 9 12 Steps (QC): 9 Picking up an Object (QC): 9 Wheel 50 feet with 2 turns (QC: 9 Type: N/A Wheel 150 feet: 9 Type: N/A PT Plan Treatment/Plan Treatment Plan: Continue Plan of Care Treatment Plan: Bed Mobility, Education, Functional Activity Sallie, Functional Strength, Gait, Safety, Therapeutic Exercise, Transfers Treatment Duration: Dec 21, 2021 Frequency: 6 times per week Estimated Hrs Per Day: .25 hour per day Patient and/or Family Agrees t: Yes Safety Risks/Education Patient Education: Gait Training Teaching Recipient: Patient Teaching Methods: Demonstration, Discussion Response to Teaching: Reinforcement Needed Time/GCodes Time In: 930 Time Out: 945 Total Billed Treatment Time: 15 Total Billed Treatment Visit, ZACKERY Hope PT Nov 27, 2021 10:11
--- NOTE | 2021-11-27 10:30 | Progress Note - Hospitalist ---
Subjective HPI/CC On Admission Date Seen by Provider: Nov 27, 2021 Time Seen by Provider: 09:55 Subjective/Events-last exam He is sitting in his chair. He has no complaints. He says he would be willing to go to a nursing facility temporarily. He says his daughter, Daniela, helps with his medical decisions. Objective Exam Vital Signs Vital Signs Date Time Temp Pulse Resp B/P (MAP) Pulse Ox O2 Delivery O2 Flow Rate FiO2 11/27/21 08:48 69 92 21 11/27/21 08:22 Room Air 11/27/21 07:48 36.8 18 138/63 (88) 11/24/21 15:54 1.50 Capillary Refill : General Appearance: No Apparent Distress, Obese Respiratory: Lungs Clear, No Respiratory Distress Cardiovascular: Regular Rate, Rhythm, No Murmur Gastrointestinal: Normal Bowel Sounds, Soft Extremity: Normal Inspection, No Pedal Edema Neurologic/Psychiatric: Alert, Normal Mood/Affect Skin: Ecchymosis (right abdomen) Results/Procedures Lab Laboratory Tests 11/27/21 07:01 Patient resulted labs reviewed. 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
[2021-11-27 11:39] VITALS: BP 102/51
--- NOTE | 2021-11-27 13:32 | Occupational Ther Daily Note ---
OT Current Status-Daily Note Subjective Pt alert, sitting in recliner. Pt agrees to therapy. No c/o pain. Mental Status/Objective Patient Orientation: Person ADL-Treatment Pt requested to use toilet. Mod A for sit to stand. Verbal cues when using FWW to stay within FWW and to cook pickled meat feet when ambulating instead of shuffling gait. Pt completed these things ~ 45% of the time. Cues to hike pants down over hips then pt used grabbar to sit on toilet. Pt requested to change briefs. Attempted to hand briefs to pt to have him don, pt did not take briefs just lifted up foot to have COON place on. COON attempted to communicate that pt needed to try and do this by self since he would be doing this at home by self. Pt continued to lift foot in air and not take briefs. COON placed briefs on and hiked over hip. Pt then ambulated back to recliner using FWW. Pt required cues to safely turn until back of legs touched chair then reach back to sit. After session, pt sitting in recliner with call light/phone in reach. Safety measures in place. Nrsg in room. Therapy Code Descriptions/Definitions Functional [place] Measure: 0=Not Assessed/NA 4=Minimal Assistance 1=Total Assistance 5=Supervision or Setup 2=Maximal Assistance 6=Modified [place] 3=Moderate Assistance 7=Complete IndependenceSCALE: Activities may be completed with or without assistive devices. 9-Atwhzkegdw-klxbfiw completes the activity by him/herself with no assistance from a helper. 5-Set-up or Clean-up Assistance-helper sets up or cleans up; patient completes activity. [place] assists only prior to or following the activity. 4-Supervision or Touching Assistance-helper provides verbal cues and/or touching/steadying and/or contact guard assistance as patient completes activity. Assistance may be provided throughout the activity or intermittently. 3-Partial/Moderate Assistance-helper does LESS THAN HALF the effort. [place] lifts, holds or supports trunk or limbs, but provides less than half the effort. 2-Substantial/Maximal Assistance-helper does MORE THAN HALF the effort. [place] lifts or holds trunk or limbs and provides more than half the effort. 0-Jlztkfsjc-kjxluk does ALL the effort. Patient does none of the effort to comp lete the activity. Or, the assistance of 2 or more helpers is required for the patient to complete the activity. If activity was not attempted, code reason: 7-Patient Refused. 9-Not Applicable-not attempted and the patient did not perform the activity before the current illness, exacerbation or injury. 10-Not Attempted due to Environmental Limitations-(lack of equipment, weather restraints, etc.). 88-Not Attempted due to Medical Conditions or Safety Concerns. OT Short Term Goals Short Term Goals Time Frame: Nov 29, 2021 Eatin Oral hygiene: 5 Toileting hygiene: 3 Shower/bathe self: 3 Upper body dressin Lower body dressin Putting on/taking off footwear: 3 OT Vault Mechanic Goals Vault Mechanic Goals Time Frame: Dec 11, 2021 Eating (QC): 5 Oral Hygiene (QC): 5 Toileting Hygiene (QC): 6 Shower/Bathe Self (QC): 5 Upper Body Dressing (QC): 5 Lower Body Dressing (QC): 5 On/Off Footwear (QC): 5 1=Demonstrate adherence to instructed precautions during ADL tasks. 2=Patient will verbalize/demonstrate understanding of assistive devices/modifications for ADL. 3=Patient will improve strength/tolerance for activity to enable patient to perform ADL's. OT Education/Plan Problem List/Assessment Assessment: Decreased Activ Tolerance, Decreased Safety Aware, Impaired Self- Care Skills Discharge Recommendations Plan/Recommendations: Continue POC Treatment Plan/Plan of Care Patient would benefit from OT for education, treatment and training to promote independence in ADL's, mobility, safety and/or upper extremity function for ADL's. Plan of Care: ADL Retraining, Caregiver Training, Cognitive Retraining, Functional Mobility, Group Exercise/Act as Ind, UE Funct Exercise/Act Treatment Duration: Dec 11, 2021 Frequency: At least 5 of 7 days/Wk (IRF) Estimated Hrs Per Day: .5 hour per day Agreement: Yes Rehab Potential: Poor Time/GCodes Start Time: 11:25 Stop Time: 11:46 Total Time Billed (hr/min): 16 Billed Treatment Time 1 visit-ADL 1 (16 min) ROSAIRO JOHNSON Nov 27, 2021 13:32
[2021-11-27 16:48] VITALS: BP 115/56
[2021-11-27] MEDS: TAMSULOSIN 0.4 MG (FLOMAX) CAP PO SCH (17:03)
[2021-11-27 19:49] VITALS: BP 129/59
[2021-11-27] MEDS: MIRTAZAPINE 15 MG (REMERON) TAB PO SCH (21:51)
[2021-11-28] VITALS (8 sets, daily range): BP systolic 100–160; BP diastolic 56–88
[2021-11-28] MEDS: MAGNESIUM 1 GM/100 ML IVPB 100 ML IV SCH (06:15)
[2021-11-28] MEDS: POTASSIUM CL 10MEQ/50ML IVPB 50 ML IV SCH (06:15)
[2021-11-28] MEDS: KCL 20 MEQ TAB (K-DUR) PO SCH (06:15)
[2021-11-28 06:59] LABS: POTASSIUM 3.9 MMOL/L (3.6-5.0)
[2021-11-28 07:05] LABS: CREATININE SERUM 1.21 MG/DL (0.60-1.30)
[2021-11-28 07:07] LABS: MAGNESIUM 1.8 MG/DL (1.6-2.4)
[2021-11-28 08:09] LABS: HEMOGLOBIN 8.6 g/dL (13.3-17.7)
[2021-11-28] MEDS: BUMETANIDE 1 MG (BUMEX) TAB PO SCH (09:33)
[2021-11-28] MEDS: VENlafaxine XR 75 MG (EFFEXOR XR) CAP PO SCH (09:34)
[2021-11-28] MEDS: HYDROXYCHLOROQUINE 200 MG (PLAQUENIL) TAB PO SCH (09:34)
[2021-11-28] MEDS: AMIODARONE 200 MG (CORDARONE) TAB PO SCH (09:34)
[2021-11-28] MEDS: lisINopril 20 MG (PRINIVIL) TABLET PO SCH (09:34)
[2021-11-28] MEDS: APIXABAN 5 MG (ELIQUIS) TABLET PO SCH ×2 (09:38→20:21)
--- NOTE | 2021-11-28 10:02 | Physical Therapy Daily Note ---
PT Daily Note-Current Subjective Patient agrees to PT. Patient would no speak on this date. Transfers SCALE: Activities may be completed with or without assistive devices. 3-Yrzlrvuwbz-nrcedjz completes the activity by him/herself with no assistance from a helper. 5-Set-up or Clean-up Assistance-helper sets up or cleans up; patient completes activity. [place] assists only prior to or following the activity. 4-Supervision or Touching Assistance-helper provides verbal cues and/or touching/steadying and/or contact guard assistance as patient completes activity. Assistance may be provided throughout the activity or intermittently. 3-Partial/Moderate Assistance-helper does LESS THAN HALF the effort. [place] lifts, holds or supports trunk or limbs, but provides less than half the effort. 2-Substantial/Maximal Assistance-helper does MORE THAN HALF the effort. [place] lifts or holds trunk or limbs and provides more than half the effort. 2-Pjfmqnxqh-wnpmkl does ALL the effort. Patient does none of the effort to complete the activity. Or, the assistance of 2 or more helpers is required for the patient to complete the activity. If activity was not attempted, code reason: 7-Patient Refused. 9-Not Applicable-not attempted and the patient did not perform the activity before the current illness, exacerbation or injury. 10-Not Attempted due to Environmental Limitations-(lack of equipment, weather restraints, etc.). 88-Not Attempted due to Medical Conditions or Safety Concerns. Sit to Stand (QC): 3 Gait Training Distance: 100' Walk 10 feet (QC): 3 Walk 50 ft with 2 Turns(QC): 3 Gait Assistive Device: FWW continuous VC's for body placement in FWW and for gait sequence due to shuffle gait with minimal to no foot clearance. Noted right LE lag with gait Exercises Seated Therapy Exercises: Ankle pumps, Long arc quads Seated Reps: 15 Assessment Patient remains up in recliner with chair alarm activated. Patient continues to demonstrate shuffle gait sequence with . PT Lead Pourer Goals Lead Pourer Goals PT Lead Pourer Goals Time Frame: Dec 21, 2021 Roll Left & Right (QC): 6 Sit to Lying (QC): 6 Lying-Sitting on Side/Bed(QC): 6 Sit to Stand (QC): 6 Chair/Eew-md-Panyc Xfer(QC): 6 Toilet Transfer (QC): 6 Car Transfer (QC): 6 Does the Patient Walk: Yes Walk 10 feet (QC): 6 Walk 50ft with 2 Turns (QC): 6 Walk 150 ft (QC): 6 Walking 10ft on Uneven Surface: 6 1 Step (curb) (QC): 4 4 Steps (QC): 9 12 Steps (QC): 9 Picking up an Object (QC): 9 Wheel 50 feet with 2 turns (QC: 9 Type: N/A Wheel 150 feet: 9 Type: N/A PT Plan Treatment/Plan Treatment Plan: Continue Plan of Care Treatment Plan: Bed Mobility, Education, Functional Activity Sallie, Functional Strength, Gait, Safety, Therapeutic Exercise, Transfers Treatment Duration: Dec 21, 2021 Frequency: 6 times per week Estimated Hrs Per Day: .25 hour per day Patient and/or Family Agrees t: Yes Time/GCodes Time In: 825 Time Out: 840 Total Billed Treatment Time: 15 Total Billed Treatment 1 visit GT 15 min SABINA YU PT Nov 28, 2021 10:02
--- NOTE | 2021-11-28 13:04 | Occupational Ther Daily Note ---
OT Current Status-Daily Note Subjective Pt alert, lying in bed. Pt agrees to therapy. Pt states that he is getting a shower this afternoon. No c/o pain. Mental Status/Objective Patient Orientation: Person, Unable to Assess Attachments: IV ADL-Treatment Pt stated that he only wears slip on shoes at home, no socks. Pt dependent for donning/doffing socks. Therapy Code Descriptions/Definitions Functional [place] Measure: 0=Not Assessed/NA 4=Minimal Assistance 1=Total Assistance 5=Supervision or Setup 2=Maximal Assistance 6=Modified [place] 3=Moderate Assistance 7=Complete IndependenceSCALE: Activities may be completed with or without assistive devices. 8-Grxmlaihmw-gsncvew completes the activity by him/herself with no assistance from a helper. 5-Set-up or Clean-up Assistance-helper sets up or cleans up; patient completes activity. [place] assists only prior to or following the activity. 4-Supervision or Touching Assistance-helper provides verbal cues and/or touching/steadying and/or contact guard assistance as patient completes activity. Assistance may be provided throughout the activity or intermittently. 3-Partial/Moderate Assistance-helper does LESS THAN HALF the effort. [place] lifts, holds or supports trunk or limbs, but provides less than half the effort. 2-Substantial/Maximal Assistance-helper does MORE THAN HALF the effort. [place] lifts or holds trunk or limbs and provides more than half the effort. 4-Nyykdmoae-aotvao does ALL the effort. Patient does none of the effort to complete the activity. Or, the assistance of 2 or more helpers is required for the patient to complete the activity. If activity was not attempted, code reason: 7-Patient Refused. 9-Not Applicable-not attempted and the patient did not perform the activity before the current illness, exacerbation or injury. 10-Not Attempted due to Environmental Limitations-(lack of equipment, weather restraints, etc.). 88-Not Attempted due to Medical Conditions or Safety Concerns. Other Treatment Min A bed mobility. Mod A using FWW to ambulate around room to recliner, verbal and physical cues required to step instead of using shuffling gait and assist to manipulate FWW instead of pushing to far forwards. Pt began to sit before chair was available, physical and verbal cues needed for pt to stand upright and turn to sit safely on chair. Pt independent with eating. After session, pt sitting in recliner with call light/phone in reach. Safety measures in place. All needs met. OT Short Term Goals Short Term Goals Time Frame: Nov 29, 2021 Eatin Oral hygiene: 5 Toileting hygiene: 3 Shower/bathe self: 3 Upper body dressin Lower body dressin Putting on/taking off footwear: 3 OT Intermediate Goals Tool Coordinator Goals Time Frame: Dec 11, 2021 Eating (QC): 5 Oral Hygiene (QC): 5 Toileting Hygiene (QC): 6 Shower/Bathe Self (QC): 5 Upper Body Dressing (QC): 5 Lower Body Dressing (QC): 5 On/Off Footwear (QC): 5 1=Demonstrate adherence to instructed precautions during ADL tasks. 2=Patient will verbalize/demonstrate understanding of assistive dev ices/modifications for ADL. 3=Patient will improve strength/tolerance for activity to enable patient to perform ADL's. OT Education/Plan Problem List/Assessment Assessment: Decreased Activ Tolerance, Decreased Safety Aware, Impaired Self- Care Skills Discharge Recommendations Plan/Recommendations: Continue POC Treatment Plan/Plan of Care Patient would benefit from OT for education, treatment and training to promote independence in ADL's, mobility, safety and/or upper extremity function for ADL's. Plan of Care: ADL Retraining, Caregiver Training, Cognitive Retraining, Functional Mobility, Group Exercise/Act as Ind, UE Funct Exercise/Act Treatment Duration: Dec 11, 2021 Frequency: At least 5 of 7 days/Wk (IRF) Estimated Hrs Per Day: .5 hour per day Agreement: Yes Rehab Potential: Poor Time/GCodes Start Time: 12:40 Stop Time: 12:55 Total Time Billed (hr/min): 15 Billed Treatment Time 1 visit-FA 1 (15 min) ROSARIO JOHNSON Nov 28, 2021 13:03
[2021-11-28] MEDS: TAMSULOSIN 0.4 MG (FLOMAX) CAP PO SCH (17:22)
[2021-11-28] MEDS: MIRTAZAPINE 15 MG (REMERON) TAB PO SCH (20:22)
[2021-11-29 04:02] VITALS: BP 121/63
[2021-11-29] MEDS: POTASSIUM CL 10MEQ/50ML IVPB 50 ML IV SCH (06:54)
[2021-11-29] MEDS: KCL 20 MEQ TAB (K-DUR) PO SCH (06:55)
[2021-11-29] MEDS: MAGNESIUM 1 GM/100 ML IVPB 100 ML IV SCH (06:55)
[2021-11-29 07:34] VITALS: BP 130/60
[2021-11-29] MEDS: VENlafaxine XR 75 MG (EFFEXOR XR) CAP PO SCH (09:38)
[2021-11-29] MEDS: AMIODARONE 200 MG (CORDARONE) TAB PO SCH (09:38)
[2021-11-29] MEDS: BUMETANIDE 1 MG (BUMEX) TAB PO SCH (09:38)
[2021-11-29] MEDS: APIXABAN 5 MG (ELIQUIS) TABLET PO SCH ×2 (09:39→20:32)
[2021-11-29] MEDS: lisINopril 20 MG (PRINIVIL) TABLET PO SCH (09:39)
[2021-11-29] MEDS: HYDROXYCHLOROQUINE 200 MG (PLAQUENIL) TAB PO SCH (09:39)
--- NOTE | 2021-11-29 09:59 | Physical Therapy Daily Note ---
PT Daily Note-Current Subjective Patient agrees to PT. Incontinent urine in bed requiring assist to cleanse and change clothing. Mental Status Patient Orientation: Person Transfers SCALE: Activities may be completed with or without assistive devices. 1-Qyrmpapaiv-dzthqhb completes the activity by him/herself with no assistance from a helper. 5-Set-up or Clean-up Assistance-helper sets up or cleans up; patient completes activity. [place] assists only prior to or following the activity. 4-Supervision or Touching Assistance-helper provides verbal cues and/or touching/steadying and/or contact guard assistance as patient completes activity. Assistance may be provided throughout the activity or intermittently. 3-Partial/Moderate Assistance-helper does LESS THAN HALF the effort. [place] lifts, holds or supports trunk or limbs, but provides less than half the effort. 2-Substantial/Maximal Assistance-helper does MORE THAN HALF the effort. [place] lifts or holds trunk or limbs and provides more than half the effort. 1-Gjbljvmhh-aabhvi does ALL the effort. Patient does none of the effort to complete the activity. Or, the assistance of 2 or more helpers is required for the patient to complete the activity. If activity was not attempted, code reason: 7-Patient Refused. 9-Not Applicable-not attempted and the patient did not perform the activity before the current illness, exacerbation or injury. 10-Not Attempted due to Environmental Limitations-(lack of equipment, weather restraints, etc.). 88-Not Attempted due to Medical Conditions or Safety Concerns. Lying to Sitting/Side of Bed(Q: 2 Sit to Stand (QC): 3 Chair/Dsv-go-Iiwqy Xfer(QC): 3 Gait Training Distance: 150' Walk 10 feet (QC): 3 Walk 50 ft with 2 Turns(QC): 3 Walk 150 ft (QC): 3 Gait Assistive Device: FWW mod assist with VC's for body placement in FWW and to clear bilateral feet. Exercises Supine Ex: Ankle pumps, Quad Set, Heel Slides, Straight leg raise Supine Reps: 8 (AAROM) Seated Therapy Exercises: Long arc quads, Hip flexion Seated Reps: 15 Assessment Patient very delayed with all responses. Patient continues to require VC's and mod assist with gait due to decreased safety awareness. Continue to increase activity as tolerated by patient. PT Retirement Goals Application Support Developer Goals PT Retirement Goals Time Frame: Dec 21, 2021 Roll Left & Right (QC): 6 Sit to Lying (QC): 6 Lying-Sitting on Side/Bed(QC): 6 Sit to Stand (QC): 6 Chair/Eqz-vy-Dmeye Xfer(QC): 6 Toilet Transfer (QC): 6 Car Transfer (QC): 6 Does the Patient Walk: Yes Walk 10 feet (QC): 6 Walk 50ft with 2 Turns (QC): 6 Walk 150 ft (QC): 6 Walking 10ft on Uneven Surface: 6 1 Step (curb) (QC): 4 4 Steps (QC): 9 12 Steps (QC): 9 Picking up an Object (QC): 9 Wheel 50 feet with 2 turns (QC: 9 Type: N/A Wheel 150 feet: 9 Type: N/A PT Plan Treatment/Plan Treatment Plan: Continue Plan of Care Treatment Plan: Bed Mobility, Education, Functional Activity Sallie, Functional Strength, Gait, Safety, Therapeutic Exercise, Transfers Treatment Duration: Dec 21, 2021 Frequency: 6 times per week Estimated Hrs Per Day: .25 hour per day Patient and/or Family Agrees t: Yes Time/GCodes Time In: 735 Time Out: 758 Total Billed Treatment Time: 23 Total Billed Treatment 1 visit EX 10 min GT 13 min SABINA YU PT Nov 29, 2021 09:59
--- NOTE | 2021-11-29 10:47 | Occupational Ther Daily Note ---
OT Current Status-Daily Note Subjective Pt alert, sitting in recliner. Pt agrees to therapy. Pt answering questions quickly and understandably today. Mental Status/Objective Patient Orientation: Person, Place, Time, Situation ADL-Treatment Therapy Code Descriptions/Definitions Functional [place] Measure: 0=Not Assessed/NA 4=Minimal Assistance 1=Total Assistance 5=Supervision or Setup 2=Maximal Assistance 6=Modified [place] 3=Moderate Assistance 7=Complete IndependenceSCALE: Activities may be completed with or without assistive devices. 8-Frvvndzrql-dqvbnyv completes the activity by him/herself with no assistance from a helper. 5-Set-up or Clean-up Assistance-helper sets up or cleans up; patient completes activity. [place] assists only prior to or following the activity. 4-Supervision or Touching Assistance-helper provides verbal cues and/or touching/steadying and/or contact guard assistance as patient completes activity. Assistance may be provided throughout the activity or intermittently. 3-Partial/Moderate Assistance-helper does LESS THAN HALF the effort. [place] lifts, holds or supports trunk or limbs, but provides less than half the effort. 2-Substantial/Maximal Assistance-helper does MORE THAN HALF the effort. [place] lifts or holds trunk or limbs and provides more than half the effort. 9-Cmnhhcjox-oqcpvl does ALL the effort. Patient does none of the effort to complete the activity. Or, the assistance of 2 or more helpers is required for the patient to complete the activity. If activity was not attempted, code reason: 7-Patient Refused. 9-Not Applicable-not attempted and the patient did not perform the activity before the current illness, exacerbation or injury. 10-Not Attempted due to Environmental Limitations-(lack of equipment, weather restraints, etc.). 88-Not Attempted due to Medical Conditions or Safety Concerns. Other Treatment Pt completed 2 sets 10 reps of 4 B UE exercises against gravity to increase strength and stamina for daily functional tasks. Pt tolerated exercises though fatigued quickly. Pt required assist with L UE for shldr flexion due to decreased AROM from old shldr injury. After session, pt sitting in recliner with call light/phone in reach. All needs met in room. OT Short Term Goals Short Term Goals Time Frame: Nov 29, 2021 Eatin Oral hygiene: 5 Toileting hygiene: 3 Shower/bathe self: 3 Upper body dressin Lower body dressin Putting on/taking off footwear: 3 OT Mcfp Goals Jewish History Professor Goals Time Frame: Dec 11, 2021 Eating (QC): 5 Oral Hygiene (QC): 5 Toileting Hygiene (QC): 6 Shower/Bathe Self (QC): 5 Upper Body Dressing (QC): 5 Lower Body Dressing (QC): 5 On/Off Footwear (QC): 5 1=Demonstrate adherence to instructed precautions during ADL tasks. 2=Patient will verbalize/demonstrate understanding of assistive devices/modifications for ADL. 3=Patient will improve strength/tolerance for activity to enable patient to perform ADL's. OT Education/Plan Problem List/Assessment Assessment: Decreased Activ Tolerance, Decreased UE Strength Discharge Recommendations Plan/Recommendations: Continue POC Treatment Plan/Plan of Care Patient would benefit from OT for education, treatment and training to promote independence in ADL's, mobility, safety and/or upper extremity function for ADL's. Plan of Care: ADL Retraining, Caregiver Training, Cognitive Retraining, Functional Mobility, Group Exercise/Act as Ind, UE Funct Exercise/Act Treatment Duration: Dec 11, 2021 Frequency: At least 5 of 7 days/Wk (IRF) Estimated Hrs Per Day: .5 hour per day Agreement: Yes Rehab Potential: Poor Time/GCodes Start Time: 10:20 Stop Time: 10:35 Total Time Billed (hr/min): 15 Billed Treatment Time 1 visit-EX 1 (15 min) ROSARIO JOHNSON Nov 29, 2021 10:46
[2021-11-29 11:22] VITALS: BP 129/56
[2021-11-29 15:24] VITALS: BP 108/53
--- NOTE | 2021-11-29 15:43 | Progress Note - Hospitalist ---
Subjective HPI/CC On Admission Date Seen by Provider: Nov 29, 2021 Time Seen by Provider: 10:50 Subjective/Events-last exam He is sitting in his chair. He was napping on my arrival. He denies any complaints. He is not having any shortness of breath. Objective Exam Vital Signs Vital Signs Date Time Temp Pulse Resp B/P (MAP) Pulse Ox O2 Delivery O2 Flow Rate FiO2 11/29/21 15:24 35.8 70 20 108/53 (71) 92 Room Air 11/27/21 08:48 21 11/24/21 15:54 1.50 Capillary Refill : General Appearance: No Apparent Distress, Obese Respiratory: Lungs Clear, No Respiratory Distress Cardiovascular: Regular Rate, Rhythm, No Murmur Gastrointestinal: Normal Bowel Sounds, Soft, Other (right hematoma) Extremity: Normal Inspection, Pedal Edema Neurologic/Psychiatric: Alert, Motor Weakness Skin: Normal Color, Warm/Dry Results/Procedures Lab Patient resulted labs reviewed. 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
[2021-11-29] MEDS: TAMSULOSIN 0.4 MG (FLOMAX) CAP PO SCH (18:08)
[2021-11-29 19:35] VITALS: BP 158/67
[2021-11-29] MEDS: MIRTAZAPINE 15 MG (REMERON) TAB PO SCH (20:32)
[2021-11-29 23:37] VITALS: BP 135/60
[2021-11-30 03:36] VITALS: BP 143/69
[2021-11-30] MEDS: POTASSIUM CL 10MEQ/50ML IVPB 50 ML IV SCH (06:00)
[2021-11-30] MEDS: MAGNESIUM 1 GM/100 ML IVPB 100 ML IV SCH (06:01)
[2021-11-30] MEDS: KCL 20 MEQ TAB (K-DUR) PO SCH (06:01)
[2021-11-30 07:31] VITALS: BP 120/58
[2021-11-30 08:13] LABS: HEMOGLOBIN 9.4 g/dL (13.3-17.7)
[2021-11-30] MEDS: AMIODARONE 200 MG (CORDARONE) TAB PO SCH (08:59)
[2021-11-30] MEDS: APIXABAN 5 MG (ELIQUIS) TABLET PO SCH ×2 (09:00→19:52)
[2021-11-30] MEDS: HYDROXYCHLOROQUINE 200 MG (PLAQUENIL) TAB PO SCH (09:00)
[2021-11-30] MEDS: VENlafaxine XR 75 MG (EFFEXOR XR) CAP PO SCH (09:00)
[2021-11-30] MEDS: lisINopril 20 MG (PRINIVIL) TABLET PO SCH (09:00)
[2021-11-30] MEDS: BUMETANIDE 1 MG (BUMEX) TAB PO SCH (09:00)
--- NOTE | 2021-11-30 09:55 | Physical Therapy Daily Note ---
PT Daily Note-Current Subjective Pt sitting up in chair upon arrival to room, requesting to use the BM. Pt moved out of isolation this date. Appearance Pt seated in chair with BLE elevated, call light and phone within reach and chair alarm activated. All needs met at this time. Mental Status Patient Orientation: Person Transfers SCALE: Activities may be completed with or without assistive devices. 0-Qpgdyavoyv-yqsqcdy completes the activity by him/herself with no assistance from a helper. 5-Set-up or Clean-up Assistance-helper sets up or cleans up; patient completes activity. [place] assists only prior to or following the activity. 4-Supervision or Touching Assistance-helper provides verbal cues and/or touching/steadying and/or contact guard assistance as patient completes activity. Assistance may be provided throughout the activity or intermittently. 3-Partial/Moderate Assistance-helper does LESS THAN HALF the effort. [place] lifts, holds or supports trunk or limbs, but provides less than half the effort. 2-Substantial/Maximal Assistance-helper does MORE THAN HALF the effort. [place] lifts or holds trunk or limbs and provides more than half the effort. 4-Crfpowula-zityey does ALL the effort. Patient does none of the effort to complete the activity. Or, the assistance of 2 or more helpers is required for the patient to complete the activity. If activity was not attempted, code reason: 7-Patient Refused. 9-Not Applicable-not attempted and the patient did not perform the activity before the current illness, exacerbation or injury. 10-Not Attempted due to Environmental Limitations-(lack of equipment, weather restraints, etc.). 88-Not Attempted due to Medical Conditions or Safety Concerns. Sit to Stand (QC): 2 Toilet Transfer (QC): 3 mod-max A to achieve stance from seated position. Pt required VCS for forward weight shift. Gait Training Distance: 30' x 2 Walk 10 feet (QC): 3 Gait Assistive Device: FWW VCS neede for walker mgmt. Pt tends to take small, shuffling steps and has difficulty with turning Exercises Seated Therapy Exercises: Ankle pumps, Long arc quads, Hip flexion Seated Reps: 15 Treatments Pt transferred to stand and walked approx 30' in room prior to stating he needed to use the restroom. Pt returned to chair to find toilet raiser, then pt ambulated into RR and completed toileting. Pt then ambulated back to chair and completed seated LE exercises Assessment Current Status: Good Progress Pt continues to require frequent cueing for ambulation and walker mgmt, improved with increased repetitions. PT Bead Stringer Goals Bead Stringer Goals PT Fdc Goals Time Frame: Dec 21, 2021 Roll Left & Right (QC): 6 Sit to Lying (QC): 6 Lying-Sitting on Side/Bed(QC): 6 Sit to Stand (QC): 6 Chair/Mno-tk-Svmhi Xfer(QC): 6 Toilet Transfer (QC): 6 Car Transfer (QC): 6 Does the Patient Walk: Yes Walk 10 feet (QC): 6 Walk 50ft with 2 Turns (QC): 6 Walk 150 ft (QC): 6 Walking 10ft on Uneven Surface: 6 1 Step (curb) (QC): 4 4 Steps (QC): 9 12 Steps (QC): 9 Picking up an Object (QC): 9 Wheel 50 feet with 2 turns (QC: 9 Type: N/A Wheel 150 feet: 9 Type: N/A PT Plan Problem List Problem List: Activity Tolerance, Functional Strength, Safety, Balance, Gait, Transfer, Bed Mobility, ROM Treatment/Plan Treatment Plan: Continue Plan of Care Treatment Plan: Bed Mobility, Education, Functional Activity Sallie, Functional Strength, Gait, Safety, Therapeutic Exercise, Transfers Treatment Duration: Dec 21, 2021 Frequency: 6 times per week Estimated Hrs Per Day: .25 hour per day Patient and/or Family Agrees t: Yes Time/GCodes Time In: 936 Time Out: 1000 Total Billed Treatment Time: 24 Total Billed Treatment 1 visit FA x 2 (24') SHANNAN MOORE PT Nov 30, 2021 09:55
[2021-11-30 11:43] VITALS: BP 104/50
[2021-11-30 15:21] VITALS: BP 104/51
[2021-11-30] MEDS: TAMSULOSIN 0.4 MG (FLOMAX) CAP PO SCH (17:30)
[2021-11-30 19:46] VITALS: BP 100/53
[2021-11-30] MEDS: MIRTAZAPINE 15 MG (REMERON) TAB PO SCH (19:53)
[2021-12-01] VITALS (7 sets, daily range): BP systolic 91–142; BP diastolic 53–66
[2021-12-01 07:05] LABS: POTASSIUM 3.6 MMOL/L (3.6-5.0)
[2021-12-01 07:06] LABS: CALCIUM 8.6 MG/DL (8.5-10.1)
[2021-12-01 07:11] LABS: CREATININE SERUM 1.35 MG/DL (0.60-1.30)
[2021-12-01 07:13] LABS: MAGNESIUM 2.1 MG/DL (1.6-2.4)
[2021-12-01] MEDS: MAGNESIUM 1 GM/100 ML IVPB 100 ML IV SCH (07:18)
[2021-12-01] MEDS: POTASSIUM CL 10MEQ/50ML IVPB 50 ML IV SCH (07:19)
[2021-12-01] MEDS: KCL 20 MEQ TAB (K-DUR) PO SCH (07:21)
[2021-12-01] MEDS ORDERED: KCL 20 MEQ TAB (K-DUR) PO ONE (09:00)
[2021-12-01] MEDS: BUMETANIDE 1 MG (BUMEX) TAB PO SCH (09:17)
[2021-12-01] MEDS: HYDROXYCHLOROQUINE 200 MG (PLAQUENIL) TAB PO SCH (09:18)
[2021-12-01] MEDS: VENlafaxine XR 75 MG (EFFEXOR XR) CAP PO SCH (09:18)
[2021-12-01] MEDS: lisINopril 20 MG (PRINIVIL) TABLET PO SCH (09:19)
[2021-12-01] MEDS: APIXABAN 5 MG (ELIQUIS) TABLET PO SCH ×2 (09:19→20:29)
[2021-12-01] MEDS: AMIODARONE 200 MG (CORDARONE) TAB PO SCH (09:26)
[2021-12-01] MEDS: TAMSULOSIN 0.4 MG (FLOMAX) CAP PO SCH (17:57)
[2021-12-01] MEDS: MIRTAZAPINE 15 MG (REMERON) TAB PO SCH (20:29)
[2021-12-02 03:15] VITALS: BP 125/60
[2021-12-02 06:11] LABS: POTASSIUM 3.9 MMOL/L (3.6-5.0)
[2021-12-02 06:13] LABS: CALCIUM 8.6 MG/DL (8.5-10.1)
[2021-12-02 06:17] LABS: CREATININE SERUM 1.38 MG/DL (0.60-1.30)
[2021-12-02 06:19] LABS: MAGNESIUM 2.1 MG/DL (1.6-2.4)
[2021-12-02] MEDS: MAGNESIUM 1 GM/100 ML IVPB 100 ML IV SCH (06:22)
[2021-12-02] MEDS: KCL 20 MEQ TAB (K-DUR) PO SCH (06:22)
[2021-12-02] MEDS: POTASSIUM CL 10MEQ/50ML IVPB 50 ML IV SCH (06:22)
[2021-12-02] MEDS: HYDROXYCHLOROQUINE 200 MG (PLAQUENIL) TAB PO SCH (08:30)
[2021-12-02] MEDS: VENlafaxine XR 75 MG (EFFEXOR XR) CAP PO SCH (08:30)
[2021-12-02] MEDS: APIXABAN 5 MG (ELIQUIS) TABLET PO SCH ×2 (08:31→20:16)
[2021-12-02] MEDS: AMIODARONE 200 MG (CORDARONE) TAB PO SCH (08:31)
[2021-12-02] MEDS: lisINopril 20 MG (PRINIVIL) TABLET PO SCH (08:32)
[2021-12-02] MEDS: BUMETANIDE 1 MG (BUMEX) TAB PO SCH (08:33)
[2021-12-02 08:37] VITALS: BP 113/57
--- NOTE | 2021-12-02 09:42 | Physical Therapy Daily Note ---
PT Daily Note-Current Subjective Patient agrees to PT. Out of isolation. Mental Status Patient Orientation: Person, Time, Situation Transfers SCALE: Activities may be completed with or without assistive devices. 0-Vawgsknsll-mkoxbek completes the activity by him/herself with no assistance from a helper. 5-Set-up or Clean-up Assistance-helper sets up or cleans up; patient completes activity. [place] assists only prior to or following the activity. 4-Supervision or Touching Assistance-helper provides verbal cues and/or touching/steadying and/or contact guard assistance as patient completes activity. Assistance may be provided throughout the activity or intermittently. 3-Partial/Moderate Assistance-helper does LESS THAN HALF the effort. [place] lifts, holds or supports trunk or limbs, but provides less than half the effort. 2-Substantial/Maximal Assistance-helper does MORE THAN HALF the effort. [place] lifts or holds trunk or limbs and provides more than half the effort. 1-Nbppjlpvl-unrttm does ALL the effort. Patient does none of the effort to complete the activity. Or, the assistance of 2 or more helpers is required for the patient to complete the activity. If activity was not attempted, code reason: 7-Patient Refused. 9-Not Applicable-not attempted and the patient did not perform the activity before the current illness, exacerbation or injury. 10-Not Attempted due to Environmental Limitations-(lack of equipment, weather restraints, etc.). 88-Not Attempted due to Medical Conditions or Safety Concerns. Sit to Stand (QC): 3 (mod assist from low surface) Gait Training Distance: 150' Walk 10 feet (QC): 4 Walk 50 ft with 2 Turns(QC): 4 Walk 150 ft (QC): 4 Gait Assistive Device: FWW shuffle gait sequence with trunk flexed posture Exercises Seated Therapy Exercises: Ankle pumps, Long arc quads, Hip flexion Seated Reps: 12 Assessment Patient up in recliner with breakfast in situ. Patient progressing with treatment plan and will dismiss to [place] this week. PT Detention Goals Garage Construction Equipment Mechanic Goals PT Garage Construction Equipment Mechanic Goals Time Frame: Dec 21, 2021 Roll Left & Right (QC): 6 Sit to Lying (QC): 6 Lying-Sitting on Side/Bed(QC): 6 Sit to Stand (QC): 6 Chair/Aap-ds-Jzqsj Xfer(QC): 6 Toilet Transfer (QC): 6 Car Transfer (QC): 6 Does the Patient Walk: Yes Walk 10 feet (QC): 6 Walk 50ft with 2 Turns (QC): 6 Walk 150 ft (QC): 6 Walking 10ft on Uneven Surface: 6 1 Step (curb) (QC): 4 4 Steps (QC): 9 12 Steps (QC): 9 Picking up an Object (QC): 9 Wheel 50 feet with 2 turns (QC: 9 Type: N/A Wheel 150 feet: 9 Type: N/A PT Plan Treatment/Plan Treatment Plan: Continue Plan of Care Treatment Plan: Bed Mobility, Education, Functional Activity Sallie, Functional Strength, Gait, Safety, Therapeutic Exercise, Transfers Treatment Duration: Dec 21, 2021 Frequency: 6 times per week Estimated Hrs Per Day: .25 hour per day Patient and/or Family Agrees t: Yes Time/GCodes Time In: 835 Time Out: 850 Total Billed Treatment Time: 15 Total Billed Treatment 1 visit FA 15 min SABINA YU PT Dec 02, 2021 09:42
--- NOTE | 2021-12-02 10:06 | Progress Note - Hospitalist ---
Subjective HPI/CC On Admission Date Seen by Provider: Dec 02, 2021 Subjective/Events-last exam Pt reports feeling well just weak. No other complaints. Watching MASH. Objective Exam Vital Signs Vital Signs Date Time Temp Pulse Resp B/P (MAP) Pulse Ox O2 Delivery O2 Flow Rate FiO2 12/02/21 08:37 36.4 71 20 113/57 (75) 96 Room Air 11/27/21 08:48 21 Capillary Refill : General Appearance: No Apparent Distress, Chronically ill Respiratory: Lungs Clear, No Respiratory Distress Cardiovascular: Regular Rate, Rhythm, No Murmur Neurologic/Psychiatric: Alert, Oriented x3 Results/Procedures Lab Laboratory Tests 12/02/21 05:30 Patient resulted labs reviewed. 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
[2021-12-02 11:01] VITALS: BP 106/55
--- NOTE | 2021-12-02 13:37 | Occupational Ther Daily Note ---
OT Current Status-Daily Note Subjective Pt alert, sitting in recliner. Pt agrees to therapy. Daughter present in room. Pt answers questions with one word and does not elaborate. Pt does appear in better spirits and states that he just wants to go home, but know he needs to go to skilled care first. Mental Status/Objective Patient Orientation: Person, Place, Time, Situation ADL-Treatment Pt ambulates to bathroom using FWW. Pt pushes FWW out in front then walks up to it. Standing at sink, pt leans hands on sink would not walk up to counter to lean on it with body even with cues. Pt has tendency to melt in the knees and verbal cues to stand up. Refused to sit to complete task. After session, pt sitting in recliner with call light/phone in reach. Therapy Code Descriptions/Definitions Functional [place] Measure: 0=Not Assessed/NA 4=Minimal Assistance 1=Total Assistance 5=Supervision or Setup 2=Maximal Assistance 6=Modified [place] 3=Moderate Assistance 7=Complete IndependenceSCALE: Activities may be completed with or without assistive devices. 9-Nhfythnptp-zgwcrxu completes the activity by him/herself with no assistance from a helper. 5-Set-up or Clean-up Assistance-helper sets up or cleans up; patient completes activity. [place] assists only prior to or following the activity. 4-Supervision or Touching Assistance-helper provides verbal cues and/or touching/steadying and/or contact guard assistance as patient completes activity. Assistance may be provided throughout the activity or intermittently. 3-Partial/Moderate Assistance-helper does LESS THAN HALF the effort. [place] lifts, holds or supports trunk or limbs, but provides less than half the effort. 2-Substantial/Maximal Assistance-helper does MORE THAN HALF the effort. [place] lifts or holds trunk or limbs and provides more than half the effort. 0-Sxfgbjoht-pierrq does ALL the effort. Patient does none of the effort to complete the activity. Or, the assistance of 2 or more helpers is required for the patient to complete the activity. If activity was not attempted, code reason: 7-Patient Refused. 9-Not Applicable-not attempted and the patient did not perform the activity before the current illness, exacerbation or injury. 10-Not Attempted due to Environmental Limitations-(lack of equipment, weather restraints, etc.). 88-Not Attempted due to Medical Conditions or Safety Concerns. Oral Hygiene (QC): 4 Other Treatment Pt's daughter states that pt has grabbars throughout bathroom and does have shower chair but pt will not use it. Pt typically takes sponge bath and only takes shower when family makes him. OT Short Term Goals Short Term Goals Time Frame: Nov 29, 2021 Eatin Oral hygiene: 5 Toileting hygiene: 3 Shower/bathe self: 3 Upper body dressin Lower body dressin Putting on/taking off footwear: 3 OT Mcfp Goals Mcfp Goals Time Frame: Dec 11, 2021 Eating (QC): 5 Oral Hygiene (QC): 5 Toileting Hygiene (QC): 6 Shower/Bathe Self (QC): 5 Upper Body Dressing (QC): 5 Lower Body Dressing (QC): 5 On/Off Footwear (QC): 5 1=Demonstrate adherence to instructed precautions during ADL tasks. 2=Patient will verbalize/demonstrate understanding of assistive devices /modifications for ADL. 3=Patient will improve strength/tolerance for activity to enable patient to perform ADL's. OT Education/Plan Problem List/Assessment Assessment: Decreased Activ Tolerance, Decreased UE Strength, Impaired Funct Balance, Impaired Self-Care Skills, Restricted Funct UE ROM Discharge Recommendations Plan/Recommendations: Continue POC Treatment Plan/Plan of Care Patient would benefit from OT for education, treatment and training to promote independence in ADL's, mobility, safety and/or upper extremity function for ADL's. Plan of Care: ADL Retraining, Caregiver Training, Cognitive Retraining, Functional Mobility, Group Exercise/Act as Ind, UE Funct Exercise/Act Treatment Duration: Dec 11, 2021 Frequency: At least 5 of 7 days/Wk (IRF) Estimated Hrs Per Day: .5 hour per day Agreement: Yes Rehab Potential: Poor Time/GCodes Start Time: 13:10 Stop Time: 13:25 Total Time Billed (hr/min): 15 Billed Treatment Time 1 visit-ADL 1 (15 min) ROSARIO JOHNSON Dec 02, 2021 13:37
[2021-12-02 16:08] VITALS: BP 102/57
[2021-12-02] MEDS: TAMSULOSIN 0.4 MG (FLOMAX) CAP PO SCH (18:24)
[2021-12-02 19:45] VITALS: BP 119/67
[2021-12-02] MEDS: MIRTAZAPINE 15 MG (REMERON) TAB PO SCH (20:18)
[2021-12-03 06:19] LABS: POTASSIUM 3.9 MMOL/L (3.6-5.0)
[2021-12-03 06:26] LABS: MAGNESIUM 2.1 MG/DL (1.6-2.4)
[2021-12-03] MEDS: MAGNESIUM 1 GM/100 ML IVPB 100 ML IV SCH (06:58)
[2021-12-03] MEDS: KCL 20 MEQ TAB (K-DUR) PO SCH (06:59)
[2021-12-03] MEDS: POTASSIUM CL 10MEQ/50ML IVPB 50 ML IV SCH (06:59)
[2021-12-03 07:14] VITALS: BP 108/65
[2021-12-03] MEDS: BUMETANIDE 1 MG (BUMEX) TAB PO SCH (08:21)
[2021-12-03] MEDS: lisINopril 20 MG (PRINIVIL) TABLET PO SCH (08:21)
[2021-12-03] MEDS: VENlafaxine XR 75 MG (EFFEXOR XR) CAP PO SCH (08:21)
[2021-12-03] MEDS: HYDROXYCHLOROQUINE 200 MG (PLAQUENIL) TAB PO SCH (08:21)
[2021-12-03] MEDS: APIXABAN 5 MG (ELIQUIS) TABLET PO SCH ×2 (08:21→20:01)
[2021-12-03] MEDS: AMIODARONE 200 MG (CORDARONE) TAB PO SCH (08:21)
--- NOTE | 2021-12-03 09:39 | Discharge Inst-Skilled Nursing ---
Discharge Inst-Skilled NF Patient Instructions Patient Instructions: Please continue to take your medications as written. Please follow up with your primary care doctor to follow up this hospital stay. Consult/Follow Up/Orders Skilled NF Admit to: [facility] Certification (SNF) I certify that SNF services are required to be given on an inpatient basis because of the above named patient's need for group home care on a continuing basis for the conditions(s) for which he/she was receiving inpatient hospital services prior to his/her transfer to the SNF. Long Term Facility Order: Nursing Services, Retail Loss Prevention Specialist-Evaluate & Treat, Physical Therapy-Evaluate & Treat Oxygen Delivery Method: Room Air Discharge Diet: No Restrictions Daily Activity as Tolerated: Yes Resuscitation Status: Full Code New & Resume Previous Orders Mandi Clemons Dec 03, 2021 09:39 MANDI CLEMONS MD Dec 03, 2021 09:39
--- NOTE | 2021-12-03 10:35 | Occupational Ther Daily Note ---
OT Current Status-Daily Note Subjective Pt sleeping in chair, woke easily to name. Pt agrees to exercises. No c/o pain. Mental Status/Objective Patient Orientation: Person, Place, Time, Situation ADL-Treatment Pt declines all ADLs. Per clinical judgment: pt able to complete eating independently, Oral care CGA in standing at sink due to pt refusing to sit in chair, able to slip on shoes though not able to bend down and complete socks or tie shoes(only slip-ons at home), set up for upper body dressing, min A for lower body dressing, CGA toileting for safety. Pt fatigues easily though does not seem to be aware of this and cues to straighten B knees and to stand tall. Therapy Code Descriptions/Definitions Functional [place] Measure: 0=Not Assessed/NA 4=Minimal Assistance 1=Total Assistance 5=Supervision or Setup 2=Maximal Assistance 6=Modified [place] 3=Moderate Assistance 7=Complete IndependenceSCALE: Activities may be completed with or without assistive devices. 0-Mnkmsuxtst-kqfyrix completes the activity by him/herself with no assistance from a helper. 5-Set-up or Clean-up Assistance-helper sets up or cleans up; patient completes activity. [place] assists only prior to or following the activity. 4-Supervision or Touching Assistance-helper provides verbal cues and/or touching/steadying and/or contact guard assistance as patient completes activity. Assistance may be provided throughout the activity or intermittently. 3-Partial/Moderate Assistance-helper does LESS THAN HALF the effort. [place] lifts, holds or supports trunk or limbs, but provides less than half the effort. 2-Substantial/Maximal Assistance-helper does MORE THAN HALF the effort. [place] lifts or holds trunk or limbs and provides more than half the effort. 8-Aigffatpj-yypquo does ALL the effort. Patient does none of the effort to complete the activity. Or, the assistance of 2 or more helpers is required for the patient to complete the activity. If activity was not attempted, code reason: 7-Patient Refused. 9-Not Applicable-not attempted and the patient did not perform the activity before the current illness, exacerbation or injury. 10-Not Attempted due to Environmental Limitations-(lack of equipment, weather restraints, etc.). 88-Not Attempted due to Medical Conditions or Safety Concerns. Eating (QC): 6 Oral Hygiene (QC): 6 Upper Body Dressing (QC): 5 Lower Body Dressing (QC): 3 On/Off Footwear: 5 Toileting Hygiene (QC): 4 Toilet Transfer (QC): 3 Other Treatment Pt completed 3 B UE exercises that were modified for L UE due to decreased L shldr AROM. Skilled instruction for correct technique and modifications, 2 set 10 reps. Pt fatigued quickly and required cues for correct technique. OT Short Term Goals Short Term Goals Time Frame: Nov 29, 2021 Eatin Oral hygiene: 5 Toileting hygiene: 3 Shower/bathe self: 3 Upper body dressin Lower body dressin Putting on/taking off footwear: 3 OT Brewing Director Goals Brewing Director Goals Time Frame: Dec 11, 2021 Eating (QC): 5 Oral Hygiene (QC): 5 Toileting Hygiene (QC): 6 Shower/Bathe Self (QC): 5 Upper Body Dressing (QC): 5 Lower Body Dressing (QC): 5 On/Off Footwear (QC): 5 1=Demonstrate adherence to instructed precautions during ADL tasks. 2=Patient will verbalize/demonstrate understanding of assistive devices/modifications for ADL. 3=Patient will improve strength/tolerance for activity to enable patient to perform ADL's. OT Education/Plan Problem List/Assessment Assessment: Decreased Activ Tolerance, Decreased Safety Aware, Decreased UE Strength, Impaired Coordination, Impaired Funct Balance, Impaired Self-Care Skills, Restricted Funct UE ROM Discharge Recommendations Plan/Recommendations: Continue POC Treatment Plan/Plan of Care Patient would benefit from OT for education, treatment and training to promote independence in ADL's, mobility, safety and/or upper extremity function for ADL's. Plan of Care: ADL Retraining, Caregiver Training, Cognitive Retraining, Functional Mobility, Group Exercise/Act as Ind, UE Funct Exercise/Act Treatment Duration: Dec 11, 2021 Frequency: At least 5 of 7 days/Wk (IRF) Estimated Hrs Per Day: .5 hour per day Agreement: Yes Rehab Potential: Poor Time/GCodes Start Time: 10:18 Stop Time: 10:33 Total Time Billed (hr/min): 15 Billed Treatment Time 1 visit-EX 1 (15 min) ROSARIO JOHNSON Dec 03, 2021 10:35
--- NOTE | 2021-12-03 10:40 | Physical Therapy Daily Note ---
PT Daily Note-Current Subjective Patient agrees to PT. More alert. Mental Status Patient Orientation: Person, Time, Situation Transfers SCALE: Activities may be completed with or without assistive devices. 3-Sfkovehvmq-bsvnouv completes the activity by him/herself with no assistance from a helper. 5-Set-up or Clean-up Assistance-helper sets up or cleans up; patient completes activity. [place] assists only prior to or following the activity. 4-Supervision or Touching Assistance-helper provides verbal cues and/or touching/steadying and/or contact guard assistance as patient completes activity. Assistance may be provided throughout the activity or intermittently. 3-Partial/Moderate Assistance-helper does LESS THAN HALF the effort. [place] lifts, holds or supports trunk or limbs, but provides less than half the effort. 2-Substantial/Maximal Assistance-helper does MORE THAN HALF the effort. [place] lifts or holds trunk or limbs and provides more than half the effort. 8-Tyrvjxmmb-rdykpy does ALL the effort. Patient does none of the effort to complete the activity. Or, the assistance of 2 or more helpers is required for the patient to complete the activity. If activity was not attempted, code reason: 7-Patient Refused. 9-Not Applicable-not attempted and the patient did not perform the activity before the current illness, exacerbation or injury. 10-Not Attempted due to Environmental Limitations-(lack of equipment, weather restraints, etc.). 88-Not Attempted due to Medical Conditions or Safety Concerns. Roll Left & Right (QC): 3 Sit to Lying (QC): 3 Lying to Sitting/Side of Bed(Q: 3 Sit to Stand (QC): 3 Chair/Axv-dw-Jxdqr Xfer(QC): 3 Toilet Transfer (QC): 3 Car Transfer (QC): 88 Gait Training Distance: 150' Walk 10 feet (QC): 3 Walk 50 ft with 2 Turns(QC): 3 Walk 150 ft (QC): 3 Walking 10ft/uneven surface-QC: 3 Gait Assistive Device: FWW slow, step to gait sequence Wheelchair Training Does the Pt Use a Wheelchair?: No Wheel 50 ft with 2 turns (QC): 9 Stair Training 1 Step (curb) (QC): 88 4 Steps (QC): 88 12 Steps (QC): 9 Balance Picking up an Object (QC): 88 Assessment Patient requires time to complete all functional tasks and is up in recliner with needs met. Plan dismissal tomorrow to [place] for continued skilled therapy. PT Electrical And Radio Aircraft Mechanic Goals Electrical And Radio Aircraft Mechanic Goals PT Half-Way Goals Time Frame: Dec 21, 2021 Roll Left & Right (QC): 6 Sit to Lying (QC): 6 Lying-Sitting on Side/Bed(QC): 6 Sit to Stand (QC): 6 Chair/Vyo-ey-Amclw Xfer(QC): 6 Toilet Transfer (QC): 6 Car Transfer (QC): 6 Does the Patient Walk: Yes Walk 10 feet (QC): 6 Walk 50ft with 2 Turns (QC): 6 Walk 150 ft (QC): 6 Walking 10ft on Uneven Surface: 6 1 Step (curb) (QC): 4 4 Steps (QC): 9 12 Steps (QC): 9 Picking up an Object (QC): 9 Wheel 50 feet with 2 turns (QC: 9 Type: N/A Wheel 150 feet: 9 Type: N/A PT Plan Treatment/Plan Treatment Plan: Continue Plan of Care Treatment Plan: Bed Mobility, Education, Functional Activity Sallie, Functional Strength, Gait, Safety, Therapeutic Exercise, Transfers Treatment Duration: Dec 21, 2021 Frequency: 6 times per week Estimated Hrs Per Day: .25 hour per day Patient and/or Family Agrees t: Yes Time/GCodes Time In: 710 Time Out: 733 Total Billed Treatment Time: 23 Total Billed Treatment 1 visit FA x 2 23 min SABINA YU PT Dec 03, 2021 10:39
[2021-12-03 16:01] VITALS: BP 108/57
[2021-12-03] MEDS: TAMSULOSIN 0.4 MG (FLOMAX) CAP PO SCH (17:20)
[2021-12-03 19:13] VITALS: BP 152/69
[2021-12-03] MEDS: MIRTAZAPINE 15 MG (REMERON) TAB PO SCH (20:01)
[2021-12-03] MEDS ORDERED: polyethylene glycoL POWDER 17 GM (MIRALAX) PACK PO PRN (20:15)
[2021-12-04 06:24] LABS: MAGNESIUM 2.1 MG/DL (1.6-2.4)
[2021-12-04] MEDS: POTASSIUM CL 10MEQ/50ML IVPB 50 ML IV SCH (06:30)
[2021-12-04] MEDS: MAGNESIUM 1 GM/100 ML IVPB 100 ML IV SCH (06:30)
[2021-12-04] MEDS: KCL 20 MEQ TAB (K-DUR) PO SCH (06:30)
[2021-12-04 07:08] VITALS: BP 127/70
[2021-12-04] MEDS ORDERED: LISI20TA26 PO (07:31)
--- NOTE | 2021-12-04 08:13 | Discharge Summary ---
Diagnosis/Chief Complaint Date of Admission Nov 22, 2021 at 13:57 Date of Discharge Discharge Date: Dec 04, 2021 Primary Care Alvaro Lebron MD Discharge Diagnosis (1) COVID-19 virus infection Status: Acute (2) Traumatic hematoma of abdominal wall Status: Acute (3) Fall from ground level Status: Acute (4) Atrial fibrillation Status: Chronic Discharge Summary Discharge Physical Exam Allergies: Coded Allergies: No Known Drug Allergies (Unverified , 11/22/21) Vitals & I&Os Vital Signs Date Time Temp Pulse Resp B/P (MAP) Pulse Ox O2 Delivery O2 Flow Rate FiO2 12/04/21 07:29 Room Air 12/04/21 07:08 36.8 61 20 127/70 (89) 92 General Appearance: No Apparent Distress, WD/WN Cardiovascular: Regular Rate, Rhythm, No Murmur Neurologic/Psychiatric: Alert, Oriented x3 Hospital Course Pt was admitted to swing bed due to debility secondary to COVID 19 and abdominal wall hematoma. He was seen by physical therapy and Occupational Therapy and strength improved. His hemoglobin stabilized and he was able to resume his home anticoagulation. Due to persistent moderate debility though he elected to discharge to group home facility to continue working on strengthening prior to returning home. Able and improved condition to follow-up with Dr. Lebron to follow-up this hospital stay. Labs (last 24 hrs) Laboratory Tests 12/04/21 05:30: Potassium Level 4.0, Magnesium Level 2.1 Patient resulted labs reviewed. Pending Labs Laboratory Tests 12/04/21 05:30: Potassium Level 4.0, Magnesium Level 2.1 Discussion & Recommendations Discharge Planning: >30 minutes discharge planning Discharge Home Medications: Active Scripts Active Lisinopril 20 Mg Tablet 20 Mg PO DAILY Reported Mirtazapine 7.5 Mg Tablet 7.5 Mg PO HS Docusate Sodium 100 Mg Capsule 100 Mg PO DAILY Metamucil (Psyllium Husk) 0.4 Gram Capsule 0.4 Gm PO BID Eliquis (Apixaban) 5 Mg Tablet 5 Mg PO BID Klor-Con M20 (Potassium Chloride) 20 Meq Tab.er.prt 20 Meq PO DAILY Amiodarone HCl 200 Mg Tablet 100 Mg PO DAILY TAKES OF A 200MG TAB Bumetanide 0.5 Mg Tablet 0.5 Mg PO DAILY Hydroxychloroquine Sulfate 200 Mg Tablet 200 Mg PO DAILY Flomax (Tamsulosin HCl) 0.4 Mg Cap 0.4 Mg PO 1800 Venlafaxine HCl ER (Venlafaxine HCl) 150 Mg Cap.er.24h 150 Mg PO DAILY Instructions to patient/family Please see electronic discharge instructions given to patient. MANDI GUPTA MD Dec 04, 2021 08:12
[2021-12-04] MEDS: BUMETANIDE 1 MG (BUMEX) TAB PO SCH (09:10)
[2021-12-04] MEDS: VENlafaxine XR 75 MG (EFFEXOR XR) CAP PO SCH (09:10)
[2021-12-04] MEDS: APIXABAN 5 MG (ELIQUIS) TABLET PO SCH (09:10)
[2021-12-04] MEDS: AMIODARONE 200 MG (CORDARONE) TAB PO SCH (09:11)
[2021-12-04] MEDS: HYDROXYCHLOROQUINE 200 MG (PLAQUENIL) TAB PO SCH (09:11)
[2021-12-04] MEDS: lisINopril 20 MG (PRINIVIL) TABLET PO SCH (09:11)
--- NOTE | 2021-12-04 11:10 | Therapy Team Discharge Summary ---
Therapy Discharge Summary Discharge Recommendations Date of Discharge Physical Therapy Patient admitted to swing bed with sepsis/pneumonia. Upon evaluation patient performed rolling with SBA, supine <-> sit with min/mod assist, transfers with CGA/SBA, ambulated 75' with a rolling walker with CGA/SBA (including 50' with at least 2 turns of 90 degrees and 10' over an uneven surface). Patient has been performing bed mobility and transfer training, balance and endurance training, functional strengthening, gait training, and education. 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 Now, patient performs rolling and supine <-> sit with min/mod assist, sit <-> stand and transfers min/mod assist, ambulates at least 150' with a rolling walker with min/mod assist (including 50' with at least 2 turns of 90 degrees and 10' over an uneven surface). Patient is being discharged to a [place] today and will be discharged from PT at this time. Roll Left to Right (QC): 3 Sit to Lying (QC): 3 Lying to Sitting/Side of Bed(Q: 3 Sit to Stand (QC): 3 Chair/Tpb-cq-Gwkoq Xfer(QC): 3 Toilet Transfer (QC): 4 Car Transfer (QC): 88 Does the Patient Walk: Yes Mode of Locomotion: Walk Anticipated Mode of Locomotion: Walk Walk 10 feet (QC): 3 Walk 50 ft with 2 Turns(QC): 3 Walk 150 ft (QC): 3 Walking 10ft on uneven surface: 3 Distance: 75' Gait Assistive Device: FWW Does the Pt Use a Wheelchair: No Wheel 50 ft with 2 turns (QC): 9 Wheel 150 ft (QC): 9 Type of Wheelchair: N/A 1 Step (curb) (QC): 88 4 Steps (QC): 88 12 Steps (QC): 9 Balance Sitting Static: Normal Balance Sitting Dynamic: Normal Balance-Standing Static: Fair Picking up an Object (QC): 88 Occupational Therapy Decreased Activ Tolerance, Decreased Safety Aware, Decreased UE Strength, Impaired Coordination, Impaired Funct Balance, Impaired Self-Care Skills, Restr icted Funct UE ROM Eating (QC): 6 Oral Hygiene (QC): 6 Shower/Bathe Self (QC): 3 Upper Body Dressing (QC): 5 Lower Body Dressing (QC): 3 On/Off Footwear (QC): 5 Toileting Hygiene (QC): 4 PT Cut Out And Marking Machine Operator Goals [facility] Goals PT Cut Out And Marking Machine Operator Goals Time Frame: Dec 21, 2021 Roll Left to Right (QC): 6 Sit to Lying (QC): 6 Lying-Sitting on Side/Bed(QC): 6 Sit to Stand (QC): 6 Chair/Vgw-sx-Pmlrw Xfer(QC): 6 Car Transfer (QC): 6 Does the Patient Walk: Yes Walk 10 feet (QC): 6 Walk 10ft-Uneven Surface(QC): 6 Walk 50ft with 2 Turns (QC): 6 Walk 150 ft (QC): 6 Wheel 50 feet with 2 turns (QC: 9 1 Step (curb) (QC): 4 4 Steps (QC): 9 12 Steps (QC): 9 Picking up an Object (QC): 9 OT Cut Out And Marking Machine Operator Goals [facility] Goals Time Frame: Dec 11, 2021 Eating (QC): 5 Oral Hygiene (QC): 5 Shower/Bathe Self (QC): 5 Upper Body Dressing (QC): 5 Lower Body Dressing (QC): 5 On/Off Footwear (QC): 5 Toileting Hygiene (QC): 6 Toilet/Commode Transfer (QC): 6 1=Demonstrate adherence to instructed precautions during ADL tasks. 2=Patient will verbalize/demonstrate understanding of assistive devices/modifications for ADL. 3=Patient will improve strength/tolerance for activity to enable patient to perform ADL's. JIMENEZ HOBSON PT Dec 04, 2021 11:10
[2021-12-04 11:13] VITALS: BP 127/70
--- NOTE | 2021-12-05 10:50 | Therapy Team Discharge Summary ---
Therapy Discharge Summary Discharge Recommendations Date of Discharge Dec 04, 2021 at 11:13 Therapy D/C Recommendations: [facility] (TCU/[facility]) Physical Therapy Roll Left to Right (QC): 3 Sit to Lying (QC): 3 Lying to Sitting/Side of Bed(Q: 3 Sit to Stand (QC): 3 Chair/Doi-ot-Nacev Xfer(QC): 3 Toilet Transfer (QC): 4 Car Transfer (QC): 88 Does the Patient Walk: Yes Mode of Locomotion: Walk Anticipated Mode of Locomotion: Walk Walk 10 feet (QC): 3 Walk 50 ft with 2 Turns(QC): 3 Walk 150 ft (QC): 3 Walking 10ft on uneven surface: 3 Distance: 75' Gait Assistive Device: FWW Does the Pt Use a Wheelchair: No Wheel 50 ft with 2 turns (QC): 9 Wheel 150 ft (QC): 9 Type of Wheelchair: N/A 1 Step (curb) (QC): 88 4 Steps (QC): 88 12 Steps (QC): 9 Balance Sitting Static: Normal Balance Sitting Dynamic: Normal Balance-Standing Static: Fair Picking up an Object (QC): 88 Occupational Therapy Pt admitted to [facility] with sepsis/pneumonia. At time of evaluation, he was max a for footwear, toileting, and lower body dressing, mod a for bathing, and SBA for eating and oral care. During his stay, OT focused on balance, UE strengthening, activity tolerance, posture, and overall endurance in order to improve performance and independence in adls and functional transfers. 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 See below for current levels of assist. Pt has now discharged from this facility and will discharge from OT services at this time. Decreased Activ Tolerance, Decreased Safety Aware, Decreased UE Strength, Impaired Coordination, Impaired Funct Balance, Impaired Self-Care Skills, Restricted Funct UE ROM Eating (QC): 6 Oral Hygiene (QC): 6 Shower/Bathe Self (QC): 3 Upper Body Dressing (QC): 5 Lower Body Dressing (QC): 3 On/Off Footwear (QC): 5 Toileting Hygiene (QC): 4 PT Halfway Goals Folder Seamer Automatic Goals PT Halfway Goals Time Frame: Dec 21, 2021 Roll Left to Right (QC): 6 Sit to Lying (QC): 6 Lying-Sitting on Side/Bed(QC): 6 Sit to Stand (QC): 6 Chair/Pmp-dx-Gdjil Xfer(QC): 6 Car Transfer (QC): 6 Does the Patient Walk: Yes Walk 10 feet (QC): 6 Walk 10ft-Uneven Surface(QC): 6 Walk 50ft with 2 Turns (QC): 6 Walk 150 ft (QC): 6 Wheel 50 feet with 2 turns (QC: 9 1 Step (curb) (QC): 4 4 Steps (QC): 9 12 Steps (QC): 9 Picking up an Object (QC): 9 OT Halfway Goals Halfway Goals Time Frame: Dec 11, 2021 Eating (QC): 5 (met) Oral Hygiene (QC): 5 (met) Shower/Bathe Self (QC): 5 (not met) Upper Body Dressing (QC): 5 (met) Lower Body Dressing (QC): 5 (not met) On/Off Footwear (QC): 5 (met) Toileting Hygiene (QC): 6 (not met) Toilet/Commode Transfer (QC): 6 1=Demonstrate adherence to instructed precautions during ADL tasks. 2=Patient will verbalize/demonstrate understanding of assistive devices/modifications for ADL. 3=Patient will improve strength/tolerance for activity to enable patient to perform ADL's. Rose Ochoa OT Dec 05, 2021 10:50
== END 2021-12-04 11:13 | DRG 948 ==
LOC: 4TH 13:57
PROVIDERS: ADMIT Internal Medicine; ATTEND Internal Medicine
DX: R53.81 Other malaise (principal); I48.20 Chronic atrial fibrillation, unspecified; R53.1 Weakness; S30.1XXD Contusion of abdominal wall, subsequent encounter; N40.0 Benign prostatic hyperplasia without lower urinary tract symptoms; L93.0 Discoid lupus erythematosus; Z86.16 Personal history of COVID-19; Z87.01 Personal history of pneumonia (recurrent); Z86.2 Personal history of diseases of the blood and blood-forming organs and certain disorders involving the immune mechanism; W19.XXXD Unspecified fall, subsequent encounter
CPT/HCPCS: 36415; 80048; 80053; 82274; 83735; 84132; 85014; 85018; 85025

== ENCOUNTER 2022-02-04 14:05 | Outpatient (RCR) | payer MEDICARE, OTHER ==
[~2022-02-04 14:05] MED LIST changes: +LISI20TA26 PO
== END 2022-02-07 | disposition home or self-care (01) ==
PROVIDERS: ATTEND Internal Medicine
DX: R53.1 Weakness (principal); M25.561 Pain in right knee

== ENCOUNTER 2022-03-07 13:04 | Outpatient (RCR) | payer MEDICARE, OTHER | END 2022-03-10 | disposition home or self-care (01) | PROVIDERS: ATTEND Internal Medicine | DX: R53.1 Weakness (principal) ==

== ENCOUNTER 2022-04-08 13:45 | Outpatient (RCR) | payer MEDICARE, OTHER | END 2022-04-09 | disposition home or self-care (01) | PROVIDERS: ATTEND Internal Medicine | DX: M25.561 Pain in right knee (principal) ==

== ENCOUNTER 2022-04-18 12:49 | Outpatient (RCR) | payer MEDICARE, OTHER | END 2022-05-10 | disposition home or self-care (01) | PROVIDERS: ATTEND Internal Medicine | DX: R26.89 Other abnormalities of gait and mobility (principal); R53.81 Other malaise; Z72.3 Lack of physical exercise ==

== ENCOUNTER → 2022-09-09 | Emergency (ER) | payer MEDICARE, OTHER ==
[~2022-09-09] MED LIST changes: +NS IV 1000 ML 1,000 ML IV SCH; +ONDANSETRON 4 MG/2 ML (SDV) Z0FRAN IVP ONE; +fentaNYL INJ 100 MCG/2 ML AMP IVP ONE; +fentaNYL INJ 100 MCG/2 ML AMP ONE
--- NOTE | 2022-09-09 23:59 | ED Fall/Injury ---
General Chief Complaint: Back Problems Stated Complaint: FALL,BACK PAIN Source: patient Exam Limitations: no limitations History of Present Illness Date Seen by Provider: September 09, 2022 Time Seen by Provider: 23:58 Initial Comments Patient is an 82-year-old male who presents to the emergency department with a chief complaint of back pain and head injury. Patient states that he was in his house, lost his balance, fell backwards onto his buttocks and then onto his back hitting his head on a door frame. Patient states that he has had problems with balance and coordination for "a while". He lives in his own home on a property of one of his daughters. He is normally able to get around and function on his own. He complains of mild headache. He is not nauseous. No numbness weakness or tingling in any of his extremities. No recent fevers, chills, cough or congestion. No abdominal pain, nausea or vomiting. Daughters are not immediately available for further history. Occurred: just prior to arrival Severity: moderate Context: lost balance Loss of Consciousness: no loss of consciousness Modifying Factors: Improves With Immobilization Associated Symptoms (Fall): Headache (Mild) Allergies and Home Medications Allergies Coded Allergies: No Known Drug Allergies (Unverified , 11/22/21) Patient Home Medication List Home Medication List Reviewed: Yes Amiodarone HCl (Amiodarone HCl) 200 Mg Tablet, 100 MG PO DAILY, (Reported) Entered as Reported by: TIFFANIE ALATORRE on 11/20/21 1548 Apixaban (Eliquis) 5 Mg Tablet, 5 MG PO BID, (Reported) Entered as Reported by: TIFFANIE ALATORRE on 11/20/21 154 Bumetanide (Bumetanide) 0.5 Mg Tablet, 0.5 MG PO DAILY, (Reported) Entered as Reported by: TIFFANIE ALATORRE on 08/14/20 1514 Docusate Sodium (Docusate Sodium) 100 Mg Capsule, 100 MG PO DAILY, (Reported) Entered as Reported by: TIFFANIE ALATORRE on 11/20/21 1548 Hydroxychloroquine Sulfate (Hydroxychloroquine Sulfate) 200 Mg Tablet, 200 MG PO DAILY, (Reported) Entered as Reported by: TIFFANIE ALATORRE on 08/14/20 1514 Lisinopril (Lisinopril) 20 Mg Tablet, 20 MG PO DAILY Prescribed by: MANDI GUPTA on 12/04/21 0731 Mirtazapine (Mirtazapine) 7.5 Mg Tablet, 7.5 MG PO HS, (Reported) Entered as Reported by: TIFFANIE ALATORRE on 11/20/21 1548 Potassium Chloride (Klor-Con M20) 20 Meq Tab.er.prt, 20 MEQ PO DAILY, (Reported) Entered as Reported by: TIFFANIE ALATORRE on 11/20/21 1548 Psyllium Husk (Metamucil) 0.4 Gram Capsule, 0.4 GM PO BID, (Reported) Entered as Reported by: TIFFANIE ALATORRE on 11/20/21 1548 Tamsulosin HCl (Flomax) 0.4 Mg Cap, 0.4 MG PO 1800, (Reported) Entered as Reported by: TIFFANIE ALATORRE on 08/14/20 1514 Venlafaxine HCl (Venlafaxine HCl ER) 150 Mg Cap.er.24h, 150 MG PO DAILY, (Reported) Entered as Reported by: RAMIRO GARRISON on 01/29/19 1506 Review of Systems Review of Systems Constitutional: see HPI Eyes: No Symptoms Reported Ears, Nose, Mouth, Throat: no symptoms reported Respiratory: no symptoms reported Cardiovascular: no symptoms reported Gastrointestinal: no symptoms reported Genitourinary: no symptoms reported Musculoskeletal: no symptoms reported Skin: other (abrasions) Psychiatric/Neurological: Headache Past Ysgmlnu-Pmlbgm-Aamimf Hx Immunizations Up To Date Tetanus Booster (TDap): More than 5yrs Seasonal Allergies Seasonal Allergies: No Past Medical History Surgeries: Yes (BILAT RCR, HAND SURG, L TKR, THORACENTESIS; COLONOSCOPIES/POLYPECTOMY) Appendectomy, Gallbladder, Joint Replacement, Orthopedic Respiratory: Yes Pneumonia Cardiac: Yes Atrial Fibrillation, Chronic Edema/Swelling, High Cholesterol, Hypertension, Rheumatic Fever Neurological: No Reproductive Disorders: No Sexually Transmitted Disease: No Genitourinary: Yes ("KIDNEY PROBLEMS" ) Benign Prostatic Hyperpl, Bladder Infection, Renal Failure Gastrointestinal: Yes Gastroesophageal Reflux, Polyps Musculoskeletal: Yes (ROTATOR CUFF REPAIR, LEFT TOTAL KNEE REPLACEMENT, HAND SURGERY) Arthritis Endocrine: Yes (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) Lupus HEENT: No Cancer: No Psychosocial: Yes Anxiety, Depression Integumentary: Yes (CUTANEOUS LUPUS, 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) Blood Disorders: No Family Medical History Diabetes SOCIAL HISTORY: -ETOH--HISTORY OF USE/ABUSE -DRUGS-DENIES USE -SMOKED 1 PPD X 30 YEARS, QUIT SEVERAL YEARS AGO PAST SURGICAL HISTORY: -BILATERAL ROTATOR CUFF REPAIR -HAND SURGERY -LEFT TOTAL KNEE REPLACEMENT -LEFT THORACENTESIS 10/2012 FOR PLEURAL EFFUSION -APPENDECTOMY -CHOLECYSTECTOMY ( GANGRENOUS GALLBLADDER) -COLONOSCOPY WITH POLYPECTOMY 2013 -BILATERAL CATARACT SURGERY Physical Exam Vital Signs Vital Signs - First Documented 09/09/22 09/10/22 23:30 00:00 Temp 36.9 Pulse 65 Resp 20 B/P (MAP) 172/90 (117) Pulse Ox 99 O2 Delivery Room Air O2 Flow Rate 2.00 Capillary Refill : Height, Weight, BMI Height: '0" Weight: 230lbs. oz. 104.144111di; 28.54 BMI Method:Stated General Appearance: WD/WN, no apparent distress HEENT: PERRL/EOMI Neck: non-tender, full range of motion Cardiovascular: regular rate, rhythm Respiratory: lungs clear, normal breath sounds, no respiratory distress, no accessory muscle use Gastrointestinal: normal bowel sounds, non tender, soft Back: normal inspection Extremities: normal range of motion, normal inspection Neurologic/Psychiatric: alert, normal mood/affect, oriented x 3 Skin: normal color, warm/dry, other (abrasions to bilateral elbows) Progress/Results/Core Measures Results/Orders Lab Results Laboratory Tests Test 09/10/22 00:30 Range/Units White Blood Count 11.7 H 4.3-11.0 10^3/uL Red Blood Count 4.49 4.30-5.52 10^6/uL Hemoglobin 12.2 L 13.3-17.7 g/dL Hematocrit 39 L 40-54 % Mean Corpuscular Volume 86 80-99 fL Mean Corpuscular Hemoglobin 27 25-34 pg Mean Corpuscular Hemoglobin Concent 32 32-36 g/dL Red Cell Distribution Width 15.0 H 10.0-14.5 % Platelet Count 158 130-400 10^3/uL Mean Platelet Volume 12.8 H 9.0-12.2 fL Immature Granulocyte % (Auto) 1 % Neutrophils (%) (Auto) 81 H 42-75 % Lymphocytes (%) (Auto) 7 L 12-44 % Monocytes (%) (Auto) 8 0-12 % Eosinophils (%) (Auto) 2 0-10 % Basophils (%) (Auto) 1 0-10 % Neutrophils # (Auto) 9.4 H 1.8-7.8 10^3/uL Lymphocytes # (Auto) 0.9 L 1.0-4.0 10^3/uL Monocytes # (Auto) 0.9 0.0-1.0 10^3/uL Eosinophils # (Auto) 0.3 0.0-0.3 10^3/uL Basophils # (Auto) 0.1 0.0-0.1 10^3/uL Immature Granulocyte # (Auto) 0.1 0.0-0.1 10^3/uL Neutrophils % (Manual) 84 % Lymphocytes % (Manual) 7 % Monocytes % (Manual) 5 % Eosinophils % (Manual) 3 % Blood Morphology Comment NORMAL Sodium Level 140 135-145 MMOL/L Potassium Level 3.9 3.6-5.0 MMOL/L Chloride Level 104 98-107 MMOL/L Carbon Dioxide Level 23 21-32 MMOL/L Anion Gap 13 5-14 MMOL/L Blood Urea Nitrogen 18 7-18 MG/DL Creatinine 0.99 0.60-1.30 MG/DL Estimat Glomerular Filtration Rate 76 BUN/Creatinine Ratio 18 Glucose Level 105 70-105 MG/DL Calcium Level 8.8 8.5-10.1 MG/DL My Orders Orders - MARGARETH BURDICK MD Ed Iv/Invasive Line Start (09/10/22 00:11) Cbc With Automated Diff (09/10/22 00:11) Ct Head/Cervical Spine Wo (09/10/22 00:11) Ct Thoracic Spine Wo (09/10/22 00:11) Basic Metabolic Panel (09/10/22 00:11) Manual Differential (09/10/22 00:30) Fentanyl Inj (Sublimaze Injection) (09/10/22 01:45) Fentanyl Inj (Sublimaze Injection) (09/10/22 03:30) Ns Iv 1000 Ml (Sodium Chloride 0.9%) (09/10/22 03:30) Ondansetron Injection (Zofran Injectio (09/10/22 03:30) Fentanyl Inj (Sublimaze Injection) (09/10/22 05:45) Fentanyl Inj (Sublimaze Injection) (09/10/22 08:16) Medications Given in ED Vital Signs/I&O 09/09/22 09/10/22 09/10/22 09/10/22 23:30 00:00 01:00 02:00 Temp 36.9 Pulse 65 57 61 55 Resp 20 18 20 16 B/P (MAP) 172/90 (117) 189/91 (123) 172/87 (115) 179/99 (125) Pulse Ox 99 100 98 99 O2 Delivery Room Air Nasal Cannula Nasal Cannula Nasal Cannula O2 Flow Rate 2.00 2.00 2.00 09/10/22 09/10/22 09/10/22 09/10/22 03:00 04:00 05:00 06:00 Pulse 66 68 70 68 Resp 18 17 20 20 B/P (MAP) 174/90 (118) 170/88 (115) 169/87 (114) 164/84 (110) Pulse Ox 98 98 98 98 O2 Delivery Nasal Cannula Nasal Cannula Nasal Cannula Nasal Cannula O2 Flow Rate 2.00 2.00 2.00 2.00 09/10/22 09/10/22 07:06 09:05 Pulse 67 Resp 17 B/P (MAP) 167/78 Pulse Ox 95 98 O2 Delivery OxyMask Nasal Cannula O2 Flow Rate 4.00 2.00 Progress Progress Note #1: Time: 03:22 Progress Note Patient seen and evaluated by me, evaluation today includes physical exam, CBC, basic metabolic panel, CT head and cervical spine without contrast, CT of the thoracic spine. Pertinent physical exam findings include well-developed well- nourished elderly male in mild distress due to thoracic back pain. HEENT exam is unremarkable. Cervical spine is nontender to palpation. Chest is nontender, abdomen is nontender. Bowel sounds are present. Patient is moving all 4 extremities. No sensory loss, no motor weakness. Patient has tenderness to palpation from approximately T6/7 through T12. No abrasions, wounds to the back. He does have abrasions on both elbows. He has a large contusion/abrasion to the right temporoparietal scalp without any active bleeding. Differential diagnosis includes traumatic intracerebral hemorrhage, thoracic spine fracture. Labs reviewed by me, CBC shows a white count of 11.7, hemoglobin of 12, hematocrit of 39, platelet count of 158. Basic metabolic panel is entirely within normal limits. CT head and cervical spine without contrast are read by virtual radiologic, no acute findings. CT thoracic spine shows a distracted unstable fracture of T9 with widening of the vertebral segment. Please see the portion of this note that reflects radiology reports. Patient maintains intact neurologic function. He is requiring some IV fentanyl for pain relief. His daughters are at the bedside, I have communicated results with them. Patient is agreeable to transfer for further neurosurgical/Ortho spine evaluation. I discussed the case with Dr. Roldan Odom on for neurosurgery at [facility] who would be happy to see the patient in consultation. Also discussed the case with Dr. Branden Martinez emergency room physician as the patient is a trauma and will need to go ER to ER. Progress Note #2: Time: 04:27 Progress Note Notified by MARTY Pineda (patient's nurse) that he will be transported by [facility] later this morning at 0800 to [facility]. Diagnostic Imaging Diagonstic Imaging: CT Comments CT Head and cervical spine - per stat rad - no acute findings Diagonstic Imaging: CT Comments CT thoracic spine - per stat rad - "There is distracted, unstable fracture of T9 with widening of the vertebral segment. Fracture extends from the ossified anterior ligament throught the upper half of the vertebral body to the posterior cortex. No significant retropulsion. No evidence of fracture of the lamina or pedicle. There does not appear to be significant spinal steonsis, There is paravertebral hemorrhage Departure Impression Primary Impression: Thoracic spine fracture Qualified Codes: S22.078A - Other fracture of t9-t10 vertebra, initial encounter for closed fracture Additional Impressions: Multiple abrasions Contusion of scalp Qualified Codes: S00.03XA - Contusion of scalp, initial encounter Chronic anticoagulation Disposition: 02 XFER [facility] Condition: Stable Transfer Transfer Reason: Exceeds level of care Time Spoke to Accepting Phy: 03:05 Transfer Progress Notes DIscussed with Dr Branden Martinez, [facility] ED; discussed with Dr Roldan Odom, [facility] Neurosurg Transfer Facility: [facility] Method of Transfer: EMS Departure-Patient Inst. Referrals: DA TRUONG MD (PCP/Family) Primary Care Physician MARGARETH BURDICK MD September 09, 2022 23:59
[2022-09-10 00:48] LABS: BASOPHILS # (AUTO) 0.1 10^3/uL (0.0-0.1); BASOPHILS % (AUTO) 1 % (0-10); EOSINOPHILS # (AUTO) 0.3 10^3/uL (0.0-0.3); EOSINOPHILS % (AUTO) 2 % (0-10); HEMATOCRIT 39 % (40-54); HEMOGLOBIN 12.2 g/dL (13.3-17.7); LYMPHOCYTES # (AUTO) 0.9 10^3/uL (1.0-4.0); LYMPHOCYTES % (AUTO) 7 % (12-44); MEAN CORPUSCULAR HEMOGLOBIN 27 pg (25-34); MEAN CORPUSCULAR HGB CONC 32 g/dL (32-36); MEAN CORPUSCULAR VOLUME 86 fL (80-99); MEAN PLATELET VOLUME 12.8 fL (9.0-12.2); MONOCYTES # (AUTO) 0.9 10^3/uL (0.0-1.0); MONOCYTES % (AUTO) 8 % (0-12); NEUTROPHILS # (AUTO) 9.4 10^3/uL (1.8-7.8); NEUTROPHILS % (AUTO) 81 % (42-75); PLATELET COUNT 158 10^3/uL (130-400); WHITE BLOOD COUNT 11.7 10^3/uL (4.3-11.0)
[2022-09-10 01:00] LABS: POTASSIUM 3.9 MMOL/L (3.6-5.0)
[2022-09-10 01:01] LABS: CALCIUM 8.8 MG/DL (8.5-10.1)
[2022-09-10 01:05] LABS: CREATININE SERUM 0.99 MG/DL (0.60-1.30)
[2022-09-10 01:37] LABS: EOSINOPHILS % (MANUAL) 3 %; LYMPHOCYTES % (MANUAL) 7 %; MONOCYTES % (MANUAL) 5 %; NEUTROPHILS % (MANUAL) 84 %; RBC MORPH NORMAL
--- NOTE | 2022-09-10 06:41 | Diagnostic Imaging Report ---
PROCEDURE: CT thoracic spine without contrast. TECHNIQUE: Multiple axial computerized tomography images were obtained from the base of the thoracic spine to the vertex without intravenous contrast. Auto Exposure Controls were utilized during the CT exam to meet ALARA standards for radiation dose reduction. INDICATION: Back injury after fall COMPARISON: 11/19/2021. FINDINGS: Patient has ankylosis throughout the thoracic spine. There is associated acute chalk stick type fracture involving the superior endplate of T9 that partially involves the T8-T9 disc space. There is approximately 1 cm of fracture diastases. The fracture disrupts both the anterior and posterior caro of the vertebral body. However, there is no fracture within the posterior elements. No other acute fracture within the thoracic spine. Prevertebral augmentation of T11-T12. A small amount of edema/hemorrhage is present in the paravertebral space around the T9 fracture. Otherwise, paravertebral fat is normal in appearance. Visualized aspects of the lungs are clear. IMPRESSION: 1. Ankylosing spondylitis with associated acute 2 column chalk stick fracture of T9, which should be considered unstable. 2. Findings are in agreement with the preliminary report. Dictated by: Dictated on workstation # [id number]
--- NOTE | 2022-09-10 06:52 | Diagnostic Imaging Report ---
PROCEDURE: CT head and CT cervical spine without contrast. TECHNIQUE: Multiple contiguous axial images were obtained through the brain and cervical spine without the use of intravenous contrast. Sagittal and coronal reformations through the cervical spine were then performed. Auto Exposure Controls were utilized during the CT exam to meet ALARA standards for radiation dose reduction. INDICATION: Head and neck trauma COMPARISON: 11/19/2021 FINDINGS: Head: No hyperdense hemorrhage or space-occupying mass. No hydrocephalus or midline shift. No evidence of territorial infarct. Basilar cisterns are patent. Unchanged global atrophy with chronic microvascular ischemic change in the deep white matter. Right-sided scalp swelling with subcutaneous hematoma in the high frontal region. No skull fracture. The paranasal sinuses and mastoid air cells are clear. Cervical spine: No acute fracture or traumatic malalignment. No high-grade spinal canal narrowing. Airway is patent. No cervical lymphadenopathy. Visualized thyroid is normal. IMPRESSION: 1. No acute intracranial process or skull fracture. Right scalp swelling and hematoma. 2. No acute fracture or traumatic malalignment of the cervical spine. 3. Findings are in agreement with the preliminary report. Dictated by: Dictated on workstation # [id number]
[2022-09-10 09:05] VITALS: BP 167/78
== END ==
LOC: EDUNIT# 23:16 → ER 23:18
DX: S22.078A Other fracture of T9-T10 vertebra, initial encounter for closed fracture (principal); S00.03XA Contusion of scalp, initial encounter; S50.312A Abrasion of left elbow, initial encounter; S50.311A Abrasion of right elbow, initial encounter; Z87.891 Personal history of nicotine dependence; Z79.01 Long term (current) use of anticoagulants; Z28.310 Unvaccinated for COVID-19; W18.30XA Fall on same level, unspecified, initial encounter; W22.8XXA Striking against or struck by other objects, initial encounter; Y92.009 Unspecified place in unspecified non-institutional (private) residence as the place of occurrence of the external cause
CPT/HCPCS: 70450; 72125; 72128

== ENCOUNTER 2022-09-21 20:53 | Observation (INO) | payer MEDICARE, OTHER ==
[~2022-09-21] VITALS: Ht 183 cm; Wt 94.4 kg
[~2022-09-21 20:53] MED LIST changes: -NS IV 1000 ML 1,000 ML IV SCH; -ONDANSETRON 4 MG/2 ML (SDV) Z0FRAN IVP ONE; -fentaNYL INJ 100 MCG/2 ML AMP IVP ONE; -fentaNYL INJ 100 MCG/2 ML AMP ONE
[2022-09-21 21:50] LABS: BASOPHILS # (AUTO) 0.1 10^3/uL (0.0-0.1); BASOPHILS % (AUTO) 1 % (0-10); EOSINOPHILS # (AUTO) 0.4 10^3/uL (0.0-0.3); EOSINOPHILS % (AUTO) 4 % (0-10); HEMATOCRIT 33 % (40-54); HEMOGLOBIN 10.3 g/dL (13.3-17.7); LYMPHOCYTES # (AUTO) 0.9 10^3/uL (1.0-4.0); LYMPHOCYTES % (AUTO) 10 % (12-44); MEAN CORPUSCULAR HEMOGLOBIN 26 pg (25-34); MEAN CORPUSCULAR HGB CONC 31 g/dL (32-36); MEAN CORPUSCULAR VOLUME 84 fL (80-99); MONOCYTES # (AUTO) 0.9 10^3/uL (0.0-1.0); MONOCYTES % (AUTO) 9 % (0-12); NEUTROPHILS # (AUTO) 6.8 10^3/uL (1.8-7.8); NEUTROPHILS % (AUTO) 74 % (42-75); PLATELET COUNT 314 10^3/uL (130-400); WHITE BLOOD COUNT 9.1 10^3/uL (4.3-11.0)
[2022-09-21 21:56] LABS: INR 1.4 (0.8-1.4)
--- NOTE | 2022-09-21 21:58 | ED General ---
General Chief Complaint: Altered Mental Status Stated Complaint: AMS Source of Information: Patient Exam Limitations: No Limitations (GWENDOLYN PORRAS APRN) History of Present Illness Date Seen by Provider: September 21, 2022 Time Seen by Provider: 21:42 Initial Comments 82-year-old male presents to the ER via EMS from [facility] for concerns of altered mental status. Patient's daughters are at bedside. Patient's daughters states that patient is usually alert and oriented and can have normal conversation with them. States that starting yesterday he began to become confused. Today he no longer recognized his daughters. They report that he seems to be hallucinating, reaching for things that he is seeing. He was hospitalized at [facility] in [place] after he fell and broke his back. He had surgery, and had respiratory failure after the surgery requiring him to be on a ventilator for 2 days. He currently wears 3 L of oxygen since the respiratory failure. Nursing staff reported to this provider that patient's daughters reported that her that patient was found to have liver cirrhosis and they were concerned for cancer and patient was at [facility]. He was supposed to have a biopsy completed, but was unable to during that visit. (GWENDOLYN PORRAS APRN) Allergies and Home Medications Allergies Coded Allergies: No Known Drug Allergies (Unverified , 11/22/21) Patient Home Medication List Home Medication List Reviewed: Yes (GWENDOLYN PORRAS APRN) Apixaban (Eliquis) 5 Mg Tablet, 5 MG PO BID, (Reported) Entered as Reported by: TIFFANIE ALATORRE on 11/20/21 1548 Last Action: Reviewed Aspirin (Aspirin) 81 Mg Tab.chew, 324 MG PO DAILY, (Reported) Entered as Reported by: NAOMY MILLS on 09/22/22 1256 Last Action: Reviewed Atorvastatin Calcium (Atorvastatin Calcium) 40 Mg Tablet, 40 MG PO HS, (Reported) Entered as Reported by: NAOMY MILLS on 09/22/22 1257 Last Action: Reviewed Bisacodyl (Bisacodyl) 10 Mg Supp.rect, 10 MG RC DAILY PRN for CONSTIPATION-4TH LINE, (Reported) Entered as Reported by: NAOMY MILLS on 09/22/22 1302 Last Action: Reviewed Bisacodyl (Bisacodyl) 5 Mg Tablet.dr, 10 MG PO Q12H PRN for CONSTIPATION-4TH LINE, (Reported) Entered as Reported by: NAOMY MILLS on 09/22/22 1306 Last Action: Reviewed Docusate Sodium (Docusate Sodium) 100 Mg Capsule, 100 MG PO BID, (Reported) Entered as Reported by: TIFFANIE ALATORRE on 11/20/211547 Last Action: Reviewed Furosemide (Furosemide) 40 Mg Tablet, 40 MG PO DAILY, (Reported) Entered as Reported by: NAOMY MILLS on 09/22/22 1258 Last Action: Reviewed Guaifenesin (Mucus Relief) 600 Mg Tab.er.12h, 1,200 MG PO BID PRN for COUGH, (Reported) Entered as Reported by: NAOMY MILLS on 09/22/22 1304 Last Action: Reviewed Hydroxychloroquine Sulfate (Hydroxychloroquine Sulfate) 200 Mg Tablet, 200 MG PO DAILY, (Reported) Entered as Reported by: TIFFANIE ALATORRE on 08/14/201513 Last Action: Reviewed Ipratropium/Albuterol Sulfate (Iprat-Albut 0.5-3(2.5) mg/3 ml) 0.5 Mg-3 Mg (2.5 Mg Base)/3 Ml Ampul.neb, 3 ML IH Q4H PRN for SHORTNESS OF BREATH, (Reported) Entered as Reported by: NAOMY MILLS on 09/22/22 1302 Last Action: Reviewed Melatonin (Melatonin) 3 Mg Tablet, 9 MG PO HS, (Reported) Entered as Reported by: NAOMY MILLS on 09/22/22 1300 Last Action: Reviewed Mirtazapine (Mirtazapine) 7.5 Mg Tablet, 7.5 MG PO HS, (Reported) Entered as Reported by: TIFFANIE ALATORRE on 11/20/211547 Last Action: Reviewed Potassium Chloride (Klor-Con M20) 20 Meq Tab.er.prt, 20 MEQ PO DAILY, (Reported) Entered as Reported by: TIFFANIE ALATORRE on 11/20/211547 Last Action: Reviewed Tamsulosin HCl (Flomax) 0.4 Mg Cap, 0.4 MG PO 1800, (Reported) Entered as Reported by: TIFFANIE ALATORRE on 08/14/201513 Last Action: Reviewed Venlafaxine HCl (Venlafaxine HCl ER) 150 Mg Cap.er.24h, 150 MG PO DAILY, (Reported) Entered as Reported by: RAMIRO L MELI on 01/29/19 7561 Last Action: Reviewed Review of Systems Review of Systems Constitutional: see HPI (GWENDOLYN PORRAS APRN) Past Aiyjmap-Llasin-Refiex Hx Patient Social History Tobacco Use?: No Use of E-Cig and/or Vaping dev: No Substance use?: No Alcohol Use?: No (GWENDOLYN PORRAS APRN) Immunizations Up To Date Tetanus Booster (TDap): More than 5yrs Influenza Vaccine Up-to-Date: Yes; Up-to-Date First/Initial COVID19 Vaccinat: 06/07/20 Second COVID19 Vaccination Nestor: 07/05/20 Third COVID19 Vaccination Date: 04/10/21 COVID19 Vaccine Benefits Consulting Analyst: [employer] (GWENDOLYN PORRAS APRN) Seasonal Allergies Seasonal Allergies: No (GWENDOLYN PORRAS APRN) Past Medical History Surgeries: Yes (BILAT RCR, HAND SURG, L TKR, THORACENTESIS;COLONOSCOPIES/POLYPECTOMY) Appendectomy, Gallbladder, Joint Replacement, Orthopedic Respiratory: Yes Pneumonia Cardiac: Yes Atrial Fibrillation, Chronic Edema/Swelling, High Cholesterol, Hypertension, Rheumatic Fever Neurological: No Reproductive Disorders: No Sexually Transmitted Disease: No Genitourinary: Yes ("KIDNEY PROBLEMS" ) Benign Prostatic Hyperpl, Bladder Infection, Renal Failure Gastrointestinal: Yes Gastroesophageal Reflux, Polyps Musculoskeletal: Yes (ROTATOR CUFF REPAIR, LEFT TOTAL KNEE REPLACEMENT, HAND SURGERY) Arthritis Endocrine: Yes (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) Lupus HEENT: No Cancer: No Psychosocial: Yes Anxiety, Depression Integumentary: Yes (CUTANEOUS LUPUS, 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) Blood Disorders: No (GWENDOLYN PORRAS APRN) Family Medical History Diabetes SOCIAL HISTORY: -ETOH--HISTORY OF USE/ABUSE -DRUGS-DENIES USE -SMOKED 1 PPD X 30 YEARS, QUIT SEVERAL YEARS AGO PAST SURGICAL HISTORY: -BILATERAL ROTATOR CUFF REPAIR -HAND SURGERY -LEFT TOTAL KNEE REPLACEMENT -LEFT THORACENTESIS 10/2012 FOR PLEURAL EFFUSION -APPENDECTOMY -CHOLECYSTECTOMY ( GANGRENOUS GALLBLADDER) -COLONOSCOPY WITH POLYPECTOMY 2013 -BILATERAL CATARACT SURGERY (GWENDOLYN PORRAS APRN) Physical Exam-Suspected Sepsis Physical Exam Vital Signs Vital Signs - First Documented 09/21/22 20:53 Temp 37.0 Pulse 70 Resp 18 B/P (MAP) 102/58 (73) Pulse Ox 98 O2 Delivery Nasal Cannula O2 Flow Rate 3.00 Capillary Refill : Height, Weight, BMI Height: '0" Weight: 230lbs. oz. 104.444839at; 28.54 BMI Method:Stated General Appearance: No Apparent Distress, WD/WN Neck: Non Tender, Supple Respiratory: No Accessory Muscle Use, No Respiratory Distress, Decreased Breath Sounds Cardiovascular: Regular Rate, Rhythm Extremity: Normal Inspection Neurologic/Psychiatric: Alert, Normal Mood/Affect, Disoriented Skin: normal color, warm/dry (GWENDOLYN PORRAS APRN) Vital Signs Vital Signs - First Documented 09/22/22 04:06 FiO2 32 (YENNI FLOYD MD) Focused Exam Lactate Level 09/21/22 21:06: Lactic Acid Level 1.05 (GWENDOLYN PORRAS APRN) Lactate Level 09/21/22 21:06: Lactic Acid Level 1.05 (YENNI FLOYD MD) Lactic Acid Level Laboratory Tests Test 09/21/22 21:06 Lactic Acid Level 1.05 MMOL/L (0.50-2.00) (GWENDOLYN PORRAS APRN) Progress/Results/Core Measures Suspected Sepsis SIRS Temperature: Pulse: Respiratory Rate: Laboratory Tests 09/21/22 21:06: White Blood Count 9.1 Blood Pressure / Mean: 09/21/22 21:06: Lactic Acid Level 1.05 Laboratory Tests 09/21/22 21:06: Creatinine 1.10, INR Comment 1.4, Platelet Count 314, Total Bilirubin 0.9 (GWENDOLYN PORRAS APRN) SIRS Laboratory Tests 09/21/22 21:06: White Blood Count 9.1 09/21/22 21:06: Lactic Acid Level 1.05 Laboratory Tests 09/21/22 21:06: Creatinine 1.10, INR Comment 1.4, Platelet Count 314, Total Bilirubin 0.9 (YENNI FLOYD MD) Results/Orders Lab Results Laboratory Tests Test 09/21/22 21:06 Range/Units White Blood Count 9.1 4.3-11.0 10^3/uL Red Blood Count 3.92 L 4.30-5.52 10^6/uL Hemoglobin 10.3 L 13.3-17.7 g/dL Hematocrit 33 L 40-54 % Mean Corpuscular Volume 84 80-99 fL Mean Corpuscular Hemoglobin 26 25-34 pg Mean Corpuscular Hemoglobin Concent 31 L 32-36 g/dL Red Cell Distribution Width 15.3 H 10.0-14.5 % Platelet Count 314 130-400 10^3/uL Mean Platelet Volume 12.0 9.0-12.2 fL Immature Granulocyte % (Auto) 2 % Neutrophils (%) (Auto) 74 42-75 % Lymphocytes (%) (Auto) 10 L 12-44 % Monocytes (%) (Auto) 9 0-12 % Eosinophils (%) (Auto) 4 0-10 % Basophils (%) (Auto) 1 0-10 % Neutrophils # (Auto) 6.8 1.8-7.8 10^3/uL Lymphocytes # (Auto) 0.9 L 1.0-4.0 10^3/uL Monocytes # (Auto) 0.9 0.0-1.0 10^3/uL Eosinophils # (Auto) 0.4 H 0.0-0.3 10^3/uL Basophils # (Auto) 0.1 0.0-0.1 10^3/uL Immature Granulocyte # (Auto) 0.1 0.0-0.1 10^3/uL Prothrombin Time 17.0 H 12.2-14.7 SEC INR Comment 1.4 0.8-1.4 Activated Partial Thromboplast Time 46 H 24-35 SEC Sodium Level 135 135-145 MMOL/L Potassium Level 3.2 L 3.6-5.0 MMOL/L Chloride Level 97 L 98-107 MMOL/L Carbon Dioxide Level 28 21-32 MMOL/L Anion Gap 10 5-14 MMOL/L Blood Urea Nitrogen 21 H 7-18 MG/DL Creatinine 1.10 0.60-1.30 MG/DL Estimat Glomerular Filtration Rate 67 BUN/Creatinine Ratio 19 Glucose Level 93 70-105 MG/DL Lactic Acid Level 1.05 0.50-2.00 MMOL/L Calcium Level 8.9 8.5-10.1 MG/DL Corrected Calcium 9.3 8.5-10.1 MG/DL Total Bilirubin 0.9 0.1-1.0 MG/DL Aspartate Amino Transf (AST/SGOT) 44 H 5-34 U/L Alanine Aminotransferase (ALT/SGPT) 35 0-55 U/L Alkaline Phosphatase 99 40-136 U/L Total Protein 7.3 6.4-8.2 GM/DL Albumin 3.5 3.2-4.5 GM/DL My Orders Orders - GWENDOLYN PORRAS APRN Cbc With Automated Diff (09/21/22 21:41) Comprehensive Metabolic Panel (09/21/22 21:41) Blood Culture (09/21/22 21:41) Sputum Culture (09/21/22 21:41) Urinalysis (09/21/22 21:) Urine Culture (09/21/22 21:41) Protime With Inr (09/21/22:) Partial Thromboplastin Time (09/21/22:41) Chest 1 View, Ap/Pa Only (09/21/22 21:41) Ed Iv/Invasive Line Start (09/21/22 21:41) Vital Signs Adult Sepsis Patie Q15M (09/21/22 21:41) O2 (09/21/22 21:41) Remove Rings In Anticipation O (09/21/22 21:41) Lactic Acid Analyzer (09/21/22 21:41) Ns Iv 1000 Ml (Sodium Chloride 0.9%) (09/21/22 21:45) Ammonia (09/21/22 22:23) Ct Angio Chst/Abd/Pelv W (09/21/22 22:48) Vital Signs/I&O 09/21/22 20:53 Temp 37.0 Pulse 70 Resp 18 B/P (MAP) 102/58 (73) Pulse Ox 98 O2 Delivery Nasal Cannula O2 Flow Rate 3.00 Capillary Refill : (GWENDOLYN PORRAS APRN) Lab Results Laboratory Tests Test 09/21/22 21:06 09/21/22 23:20 09/21/22 23:23 09/22/22 01:38 Range/Units White Blood Count 9.1 4.3-11.0 10^3/uL Red Blood Count 3.92 L 4.30-5.52 10^6/uL Hemoglobin 10.3 L 13.3-17.7 g/dL Hematocrit 33 L 40-54 % Mean Corpuscular Volume 84 80-99 fL Mean Corpuscular Hemoglobin 26 25-34 pg Mean Corpuscular Hemoglobin Concent 31 L 32-36 g/dL Red Cell Distribution Width 15.3 H 10.0-14.5 % Platelet Count 314 130-400 10^3/uL Mean Platelet Volume 12.0 9.0-12.2 fL Immature Granulocyte % (Auto) 2 % Neutrophils (%) (Auto) 74 42-75 % Lymphocytes (%) (Auto) 10 L 12-44 % Monocytes (%) (Auto) 9 0-12 % Eosinophils (%) (Auto) 4 0-10 % Basophils (%) (Auto) 1 0-10 % Neutrophils # (Auto) 6.8 1.8-7.8 10^3/uL Lymphocytes # (Auto) 0.9 L 1.0-4.0 10^3/uL Monocytes # (Auto) 0.9 0.0-1.0 10^3/uL Eosinophils # (Auto) 0.4 H 0.0-0.3 10^3/uL Basophils # (Auto) 0.1 0.0-0.1 10^3/uL Immature Granulocyte # (Auto) 0.1 0.0-0.1 10^3/uL Prothrombin Time 17.0 H 12.2-14.7 SEC INR Comment 1.4 0.8-1.4 Activated Partial Thromboplast Time 46 H 24-35 SEC Sodium Level 135 135-145 MMOL/L Potassium Level 3.2 L 3.6-5.0 MMOL/L Chloride Level 97 L 98-107 MMOL/L Carbon Dioxide Level 28 21-32 MMOL/L Anion Gap 10 5-14 MMOL/L Blood Urea Nitrogen 21 H 7-18 MG/DL Creatinine 1.10 0.60-1.30 MG/DL Estimat Glomerular Filtration Rate 67 BUN/Creatinine Ratio 19 Glucose Level 93 70-105 MG/DL Lactic Acid Level 1.05 0.50-2.00 MMOL/L Calcium Level 8.9 8.5-10.1 MG/DL Corrected Calcium 9.3 8.5-10.1 MG/DL Total Bilirubin 0.9 0.1-1.0 MG/DL Aspartate Amino Transf (AST/SGOT) 44 H 5-34 U/L Alanine Aminotransferase (ALT/SGPT) 35 0-55 U/L Alkaline Phosphatase 99 40-136 U/L Total Protein 7.3 6.4-8.2 GM/DL Albumin 3.5 3.2-4.5 GM/DL Urine Color YELLOW Urine Clarity CLEAR Urine pH 7.0 5-9 Urine Specific [place] 1.010 L 1.016-1.022 Urine Protein NEGATIVE NEGATIVE Urine Glucose (UA) NEGATIVE NEGATIVE Urine Ketones NEGATIVE NEGATIVE Urine Nitrite NEGATIVE NEGATIVE Urine Bilirubin NEGATIVE NEGATIVE Urine Urobilinogen 0.2 < = 1.0 MG/DL Urine Leukocyte Esterase NEGATIVE NEGATIVE Urine RBC (Auto) NEGATIVE NEGATIVE Urine RBC NONE /HPF Urine WBC NONE /HPF Urine Crystals NONE /LPF Urine Bacteria NEGATIVE /HPF Urine Casts NONE /LPF Urine Mucus NEGATIVE /LPF Urine Culture Indicated NO Magnesium Level 1.9 1.6-2.4 MG/DL Ammonia 26 11-32 UMOL/L Influenza Type A (RT-PCR) Not Detected Not Detecte Influenza Type B (RT-PCR) Not Detected Not Detecte SARS-CoV-2 RNA (RT-PCR) Not Detected Not Detecte Test 09/22/22 02:00 Range/Units Blood Gas Puncture Site R RAD Blood Gas Patient Temperature 36.8 Arterial Blood pH 7.38 7.37-7.43 Arterial Blood Partial Pressure CO2 48 H 35-45 MMHG Arterial Blood Partial Pressure O2 78 L 79-93 MMHG Arterial Blood HCO3 28 H 23-27 MMOL/L Arterial Blood Total CO2 29.1 21.0-31.0 MMOL/L Arterial Blood Oxygen Saturation 96 94-100 % Arterial Blood Base Excess 2.9 H -2.5-2.5 MMOL/L Cristhian Test YES-POS Blood Gas Ventilator Setting NO Blood Gas Inspired Oxygen 3L My Orders Orders - YENNI FLOYD MD Covid 19 Inhouse Test (09/22/22 01:31) Influenza A And B By Pcr (09/22/22 01:31) Magnesium (09/22/22 01:34) Arterial Blood Gas (09/22/22 02:00) Vital Signs/I&O 09/21/22 09/21/22 09/22/22 09/22/22 20:53 20:53 04:00 04:06 Temp 37.0 36.1 Pulse 70 66 66 Resp 18 22 B/P (MAP) 102/58 (73) 147/63 (91) Pulse Ox 98 98 97 O2 Delivery Nasal Cannula Nasal Cannula Nasal Cannula O2 Flow Rate 3.00 3.00 3.00 FiO2 32 09/22/22 09/22/22 04:26 04:47 Pulse 70 Pulse Ox 97 O2 Delivery Nasal Cannula O2 Flow Rate 3.00 (YENNI FLOYD MD) Progress Note : Progress Note Patient seen evaluated, resting comfortably in bed, no acute distress. Based on exam and symptoms, septic work-up initiated including CBC, CMP, blood cultures x2, lactic acid, urinalysis, sputum culture, chest x-ray, coags. Fluids ordered. (GWENDOLYN PORRAS MACHINE II ENGRAVER) Progress Note : Progress Note I assumed care of this patient from Gwendolyn Porras NP at the conclusion of her shift. Some labs were pending at that time. I have reviewed and interpreted all labs. CBC was remarkable for mild anemia with hemoglobin of 10.3. ABG demonstrated slight hypercarbia and slight hypoxia with PCO2 of 48 and PO2 of 78. CMP was notable for potassium of 3.2. COVID and influenza screens were negative. Urinalysis was unremarkable. CT of the head and CT of the chest, abdomen, and pelvis were all reviewed. There were no significant acute abnormalities to account for his altered mental status. Labs also revealed no cause for his altered mental status. Patient seems to have acute delirium that has progressed since last Thursday when he was relatively normal and lucid per his daughters. Daughters have stated they will not allow him to be transferred back to [facility] in [place] as they are dissatisfied with his care. They report he spent the entire night sitting in a chair because the 2 women working were not able to get him back into bed. His back brace was also on sideways and not performing its function due to its position. Patient has not been able to sleep and they believe that is largely due to him not being placed back in bed. Ultimately, patient is being admitted for altered mental status and ability. I am replacing potassium with his IV fluids. Case was reviewed with Dr. Reyes, hospitalist, who excepted admission. Patient is a DNR as noted on his skilled nursing orders. (YENNI FLOYD MD) Diagnostic Imaging Diagonstic Imaging: CT Plain Films/CT/US/NM/MRI: head Comments [facility] report reviewed. No acute abnormalities were appreciated by the [facility] radiologist. Diagonstic Imaging: CT Plain Films/CT/US/NM/MRI: chest, abdomen, pelvis Comments CT angiogram chest with not angiogram abdomen and pelvis CT report was reviewed. [facility] radiologist interpretation indicated no evidence of pulmonary emboli. There was atelectasis versus consolidation noted with pneumonia not excluded. The displaced T9 fracture was fused with hardware. There were findings consi stent with cirrhosis and questionable cystitis. (YENNI FLOYD MD) Departure Communication (Admissions) Time/Spoke to Admitting Phy: 02:52 Dr. Reyes (YENNI FLOYD MD) Impression Primary Impression: Acute delirium Additional Impressions: Debility Hypokalemia Disposition: ADMITTED INPATIENT Condition: Stable Admissions Decision to Admit Reason: Admit from ER (General) Decision to Admit/Date: September 22, 2022 Time/Decision to Admit Time: 02:52 (YENNI FLOYD MD) Departure-Patient Inst. Referrals: DA TRUONG MD (PCP/Family) Primary Care Physician GWENDOLYN PORRAS APRN September 21, 2022 21:58 YENNI FLOYD MD September 22, 2022 02:46
[2022-09-21] MEDS: NS IV 1000 ML 1,000 ML IV SCH ×2 (22:03→23:06)
[2022-09-21 22:10] LABS: ALBUMIN 3.5 GM/DL (3.2-4.5); BILIRUBIN,TOTAL 0.9 MG/DL (0.1-1.0); CALCIUM 8.9 MG/DL (8.5-10.1); CREATININE SERUM 1.1 MG/DL (0.60-1.30); POTASSIUM 3.2 MMOL/L (3.6-5.0); TOTAL PROTEIN 7.3 GM/DL (6.4-8.2)
[2022-09-21 23:55] LABS: BILIRUBIN,URINE NEGATIVE (NEGATIVE); CLARITY,URINE CLEAR; COLOR,URINE YELLOW; GLUCOSE, URINE (UA) NEGATIVE (NEGATIVE); KETONES,URINE NEGATIVE (NEGATIVE); LEUKOCYTE ESTERASE ,URINE NEGATIVE (NEGATIVE); NITRITE,URINE NEGATIVE (NEGATIVE); PROTEIN,URINE NEGATIVE (NEGATIVE)
[2022-09-22 00:11] LABS: BACTERIA,URINE NEGATIVE /HPF
[2022-09-22 02:11] LABS: ABG BASE EXCESS 2.9 MMOL/L (-2.5-2.5); ABG OXYGEN SATURATION 96 % (94-100); ABG PCO2 48 MMHG (35-45); ABG PH 7.38 (7.37-7.43); ABG PO2 78 MMHG (79-93); ABG TCO2 29.1 MMOL/L (21.0-31.0)
[2022-09-22 02:12] LABS: ALLENS TEST YES-POS; INSPIRED O2 3L; VENTILATOR NO
[2022-09-22 02:13] LABS: PATIENT TEMP 36.8
[2022-09-22 04:00] VITALS: BP 147/63
[2022-09-22] MEDS ORDERED: ONDANSETRON 4 MG/2 ML (SDV) Z0FRAN IV PRN (04:00)
[2022-09-22] MEDS ORDERED: NS W/KCL 20 MEQ/L 1,000 ML IV ONE (04:03)
[2022-09-22] MEDS: NS W/KCL 20 MEQ/L 1,000 ML IV SCH ×3 (04:09→20:38)
[2022-09-22] MEDS ORDERED: RT-ALBUTEROL/IPRATROPIUM 3 ML (DUONEB) VIAL INH PRN (04:15)
[2022-09-22 06:07] LABS: BASOPHILS % (AUTO) 1 % (0-10); EOSINOPHILS # (AUTO) 0.3 10^3/uL (0.0-0.3); EOSINOPHILS % (AUTO) 4 % (0-10); HEMATOCRIT 28 % (40-54); HEMOGLOBIN 8.9 g/dL (13.3-17.7); LYMPHOCYTES # (AUTO) 0.7 10^3/uL (1.0-4.0); LYMPHOCYTES % (AUTO) 9 % (12-44); MEAN CORPUSCULAR HEMOGLOBIN 27 pg (25-34); MEAN CORPUSCULAR HGB CONC 32 g/dL (32-36); MEAN CORPUSCULAR VOLUME 85 fL (80-99); MEAN PLATELET VOLUME 11.6 fL (9.0-12.2); MONOCYTES # (AUTO) 0.7 10^3/uL (0.0-1.0); MONOCYTES % (AUTO) 9 % (0-12); NEUTROPHILS # (AUTO) 6.2 10^3/uL (1.8-7.8); NEUTROPHILS % (AUTO) 77 % (42-75); PLATELET COUNT 270 10^3/uL (130-400); WHITE BLOOD COUNT 8.1 10^3/uL (4.3-11.0)
--- NOTE | 2022-09-22 06:13 | Diagnostic Imaging Report ---
Indication: Shortness of breath Portable chest 10:23 PM Patient's had long segment fusion of the thoracolumbar spine. There is thoracic scoliosis convex to the right. There is cardiomegaly. There is questionable consolidation of left lung base but this appears unchanged from 11/20/2021. IMPRESSION: Questionable left basilar consolidation Dictated by: Dictated on workstation # [id number]
[2022-09-22 06:16] LABS: POTASSIUM 3.1 MMOL/L (3.6-5.0)
[2022-09-22 06:21] LABS: CREATININE SERUM 0.87 MG/DL (0.60-1.30)
--- NOTE | 2022-09-22 06:56 | Diagnostic Imaging Report ---
PROCEDURE: CT head without contrast. TECHNIQUE: Multiple contiguous axial images were obtained through the brain without the use of intravenous contrast. Auto Exposure Controls were utilized during the CT exam to meet ALARA standards for radiation dose reduction. INDICATION: Altered mental status. Comparison is made with prior examination of 09/10/2022. FINDINGS: There is prominence of the ventricles and sulci. There is no hydrocephalus or cerebral edema. There is no midline shift or mass-effect. There is no intracranial mass, hemorrhage, or extra-axial fluid collection. There is some diffuse decreased attenuation of the periventricular white matter which is nonspecific. The visualized paranasal sinuses and mastoid air cells are clear. There are no regional areas of decreased attenuation appreciated to suggest an acute CVA. IMPRESSION: 1. No acute intracranial process. 2. Age-appropriate atrophy. 3. Decreased attenuation of the periventricular white matter which is nonspecific, however, likely reflects senescent change and/or chronic small vessel ischemic disease. Dictated by: Dictated on workstation # [id number]
--- NOTE | 2022-09-22 07:34 | Diagnostic Imaging Report ---
INDICATION: SOA, AMS CTA chest, abdomen and pelvis Thin axial sections through the chest, abdomen and pelvis are obtained following intravenous contrast bolus. Multiplanar MIP images were reconstructed and reviewed. All CT scans use one or more of the following dose optimizing techniques: automated exposure control, MA and/or KvP adjustment based on patient size and exam type or iterative reconstruction. Chest pain shortness of breath. FINDINGS: There is cardiomegaly. There is some bibasal atelectasis and/or pneumonitis. There is a small right pleural effusion. There is no pneumothorax. Thoracic aorta is of normal caliber without evidence of dissection. No definitive filling defects are seen within the central or proximal pulmonary arteries. Evaluation of the more distal pulmonary arteries is limited due to artifact from spinal hardware. Visualized intra-abdominal structures are unremarkable. IMPRESSION: Suboptimal evaluation the lower lobe pulmonary artery secondary to beam hardening artifact from spinal hardware. There is however no evidence of central or proximal pulmonary embolism. Bibasal atelectasis and/or pneumonitis with a small right pleural effusion. Displaced T9 fracture with surgical fusion. Cardiomegaly Dictated by: Dictated on workstation # [id number]
[2022-09-22 07:46] VITALS: BP 82/62
[2022-09-22] MEDS: HYDROcodone/APAP 5 MG/325 MG (LORTAB) TAB PO PRN (09:21)
[2022-09-22] MEDS ORDERED: VANCOMYCIN INJECTION 0.1 MG in NS (IVPB) 250 ML IV SCH (10:30)
[2022-09-22] MEDS ORDERED: PIPERACILLIN SODIUM/TAZOBACTAM 4.5 GM in NS (IVPB) 100 ML IV ONE (11:00)
--- NOTE | 2022-09-22 11:10 | Short Stay Summary-Hospitalist ---
History of Present Illness HPI/Chief Complaint Patient is an 82-year-old male who presented to the emergency department due to altered mental status. He has had multiple medical issues over the past 2 weeks. Prior to that his daughters who are at bedside states that he was in good health and alert and oriented x4 and ambulated with a walker. On 09 September he fell and was brought to the emergency room for evaluation. He was found to acute unstable fracture of T9 and was transferred to [facility] for evaluation. On September 11 he underwent surgery and family reports he had 14 screws and 2 rods placed. He was maintained on the ventilator for 2 days postoperatively. He was extubated to BiPAP and had 1 good day on September 15. After that he is sleepy and confused and not back to his normal self. He had an EEG due to concerns for seizures on September 18 and was told this was normal. At some point he was seen by a neurologist as well. He was discharged from [facility] on September 20 to medical [facility]. Family reports that he was put in a chair and was not moved from that all night until their arrival yesterday they state he had no pain medicine or any of his medications. They decided to bring him back in for evaluation yesterday to the ER. He remained confused and at times was hallucinating. While I was at bedside he was acting as if he was eating though there is no food in his room. He was worked up for infection but was not found to have a urinary tract infection or pneumonia. He remained quite confused. He is mostly denied pain though this morning did tell the nurse that he was having some pain and did respond to the pain medicine. Of note they were told during their admission last week that he has liver disease (?cirrhosis vs cancer) but that it would need to be worked up after his back as healed. Source: patient Date Seen 09/22/22 Time Seen by a Provider: 10:00 Attending Physician Alvaro Lebron MD PCP Admitting Physician: Becca Reyes MD Attending Physician: Mandi Clemons MD Referring Physician Date of Admission September 22, 2022 at 03:33 Home Medications & Allergies Home Medications Reviewed patient Home Medication Reconciliation performed by pharmacy medication reconciliations interactive video technician and/or nursing. Patients Allergies have been reviewed. Allergies Allergies Coded Allergies No Known Drug Allergies (Unverified11/22/21) Past Ptclkwc-Joulpn-Drkoty Hx Patient Social History Marrital Status: Tobacco Use?: No Tobacco type used: Cigarettes Smoking Status: Former Smoker Use of E-Cig and/or Vaping dev: No Substance use?: No Alcohol Use?: No Pt feels they are or have been: No Immunizations Up To Date Date of Influenza Vaccine: Feb 09, 2020 First/Initial COVID19 Vaccinat: 06/07/20 Second COVID19 Vaccination Nestor: 07/05/20 Tetanus Booster (TDap): Unknown Hepatitis A: No Hepatitis B: No Date of Pneumonia Vaccine: Mar 12, 2009 Seasonal Allergies Seasonal Allergies: No Current Status Advance Directives: Unable to obtain Communicates: Verbally Primary Language: Serbian Preferred Spoken Language: Serbian Is interpretation needed?: No Implanted or Applied Medical D: Orthopedic hardware Past Medical History Surgeries: Appendectomy, Gallbladder, Joint Replacement, Orthopedic Pneumonia Atrial Fibrillation, Chronic Edema/Swelling, High Cholesterol, Hypertension, Rheumatic Fever Sexually Transmitted Disease: No Benign Prostatic Hyperpl, Bladder Infection, Renal Failure Gastroesophageal Reflux, Polyps Arthritis Lupus Anxiety, Depression Blood Disorders: No Family Medical History Reviewed Nursing Family Hx Diabetes SOCIAL HISTORY: -ETOH--HISTORY OF USE/ABUSE -DRUGS-DENIES USE -SMOKED 1 PPD X 30 YEARS, QUIT SEVERAL YEARS AGO PAST SURGICAL HISTORY: -BILATERAL ROTATOR CUFF REPAIR -HAND SURGERY -LEFT TOTAL KNEE REPLACEMENT -LEFT THORACENTESIS 10/2012 FOR PLEURAL EFFUSION -APPENDECTOMY -CHOLECYSTECTOMY ( GANGRENOUS GALLBLADDER) -COLONOSCOPY WITH POLYPECTOMY 2013 -BILATERAL CATARACT SURGERY Review of Systems Constitutional: see HPI Physical Exam Physical Exam Vital Signs Vital Signs - First Documented 09/22/22 04:06 FiO2 32 Capillary Refill : Less Than 3 Seconds Height, Weight, BMI Height: '0" Weight: 230lbs. oz. [id number]; 28.18 BMI Method:Stated General Appearance: No Apparent Distress, WD/WN HEENT: No Scleral Icterus (L), No Scleral Icterus (R) Neck: Non Tender, Supple Respiratory: No Accessory Muscle Use; No Crackles; Decreased Breath Sounds Cardiovascular: Regular Rate, Rhythm Gastrointestinal: Normal Bowel Sounds, Soft Back: Other (was unable to turn due to pain/debility to visualize ) Extremity: Normal Inspection, No Pedal Edema; No Swelling Neurologic/Psychiatric: Alert, Normal Mood/Affect, Disoriented Results Results/Procedures Labs Laboratory Tests 09/21/22 21:06 09/22/22 06:00 Patient resulted labs reviewed. Imaging: Reviewed Imaging Report Imaging [facility] [place], [place] NAME: MILLY IGNACIO [facility] REC#: [id number] PT STATUS: ADM Eulalia : 1940 PHYSICIAN: [employer] PORRAS APRN ADMIT DATE: 09/22/22 Signed Date of Exam:09/21/22 CHEST 1 VIEW, AP/PA ONLY Indication: Shortness of breath Portable chest 10:23 PM Patient's had long segment fusion of the thoracolumbar spine. There is thoracic scoliosis convex to the right. There is cardiomegaly. There is questionable consolidation of left lung base but this appears unchanged from 11/20/2021. IMPRESSION: Questionable left basilar consolidation Dictated by: Dictated on workstation # [id number] Dict: 09/22/2210 Trans: 09/22/22611 [id number] Interpreted by: MICAELA TENORIO MD Electronically signed by: MICAELA TENORIO MD 09/22/22611 [facility] [place], [place] NAME: MILLY IGNACIO [facility] REC#: [id number] PT STATUS: ADM Eulalia : 1940 PHYSICIAN: CURT PORRAS APRN ADMIT DATE: 09/22/22 Signed Date of Exam:09/21/22 CT JOAQUÍN CHEST/NOANG ABD-PELV W INDICATION: SOA, AMS CTA chest, abdomen and pelvis Thin axial sections through the chest, abdomen and pelvis are obtained following intravenous contrast bolus. Multiplanar MIP images were reconstructed and reviewed. All CT scans use one or more of the following dose optimizing techniques: automated exposure control, MA and/or KvP adjustment based on patient size and exam type or iterative reconstruction. Chest pain shortness of breath. FINDINGS: There is cardiomegaly. There is some bibasal atelectasis and/or pneumonitis. There is a small right pleural effusion. There is no pneumothorax. Thoracic aorta is of normal caliber without evidence of dissection. No definitive filling defects are seen within the central or proximal pulmonary arteries. Evaluation of the more distal pulmonary arteries is limited due to artifact from spinal hardware. Visualized intra-abdominal structures are unremarkable. IMPRESSION: Suboptimal evaluation the lower lobe pulmonary artery secondary to beam hardening artifact from spinal hardware. There is however no evidence of central or proximal pulmonary embolism. Bibasal atelectasis and/or pneumonitis with a small right pleural effusion. Displaced T9 fracture with surgical fusion. Cardiomegaly Dictated by: Dictated on workstation # [id number] Dict: 09/22/2223 Trans: 09/22/2252 [id number] Interpreted by: MARICARMEN CHACON MD Electronically signed by: MARICARMEN CHACON MD 09/22/22851 [facility], [place] NAME: MILLY IGNACIO [facility] REC#: [id number] PT STATUS: ADM Eulalia : 1940 PHYSICIAN: CURT PORRAS APRN ADMIT DATE: 09/22/22 Signed Date of Exam:09/21/22 CT HEAD WO PROCEDURE: CT head without contrast. TECHNIQUE: Multiple contiguous axial images were obtained through the brain without the use of intravenous contrast. Auto Exposure Controls were utilized during the CT exam to meet ALARA standards for radiation dose reduction. INDICATION: Altered mental status. Comparison is made with prior examination of 09/10/2022. FINDINGS: There is prominence of the ventricles and sulci. There is no hydrocephalus or cerebral edema. There is no midline shift or mass-effect. There is no intracranial mass, hemorrhage, or extra-axial fluid collection. There is some diffuse decreased attenuation of the periventricular white matter which is nonspecific. The visualized paranasal sinuses and mastoid air cells are clear. There are no regional areas of decreased attenuation appreciated to suggest an acute CVA. IMPRESSION: 1. No acute intracranial process. 2. Age-appropriate atrophy. 3. Decreased attenuation of the periventricular white matter which is nonspecific, however, likely reflects senescent change and/or chronic small vessel ischemic disease. Dictated by: Dictated on workstation # [id number] Dict: 09/22/22 [id number] Trans: 09/22/2252 [id number] Interpreted by: MARICARMEN CHACON MD Electronically signed by: MARICARMEN CHACON MD 09/22/22 0852 Short Stay Diagnosis Discharge Diagnosis-Short Stay Admission Diagnosis Encephalopathy Final Discharge Diagnosis Encephalopathy Conclusion Plan Encephalopathy Unsure of etiology Discussed with family that we have ruled out a handful of things ( no UTI, no obvious pneumonia, ammonia level normal, no acute changes on CT Head, no leukocytosis or fever, no renal failure) and that I am unsure of the etiology of his symptoms Does not seem consistent with CVA as no focal deficits Discussed with Rubia who accepted him back for further evaluation given recent hardware Will cover with Tushar to be cautious Discussed that some component of an underlying dementia may have been exacerbated by anesthesia and hospital stay but could not be sure of this at this time Updated Dr Lebron of admission Diagnosis/Problems Diagnosis/Problems (1) Encephalopathy (2) Debility Status: Acute (3) Thoracic spine fracture Status: Acute (4) Chronic anticoagulation Status: Acute MANDI CLEMONS MD September 22, 2022 11:10
[2022-09-22 11:54] VITALS: BP 100/61
[2022-09-22] MEDS: VANCOMYCIN 1,750 MG/NS 500 ML IVPB IV NR ×4 (12:39→13:01)
[2022-09-22] MEDS ORDERED: ASPI-1238 PO (12:56)
[2022-09-22] MEDS ORDERED: ASPI-999 PO (12:56)
[2022-09-22] MEDS ORDERED: ATOR40TA70 PO (12:57)
[2022-09-22] MEDS ORDERED: FURO40TA4 PO (12:58)
[2022-09-22] MEDS ORDERED: MELA3TAB39 PO (13:00)
[2022-09-22] MEDS ORDERED: IPRA3AMP31 IH (13:02)
[2022-09-22] MEDS ORDERED: BISA10SU8 RC (13:02)
[2022-09-22] MEDS ORDERED: GUAI-977 PO (13:04)
[2022-09-22] MEDS ORDERED: BISA5TAB20 PO (13:06)
[2022-09-22 16:28] VITALS: BP 154/70
[2022-09-22] MEDS: PIPERACILLIN SODIUM/TAZOBACTAM 4.5 GM in NS (IVPB) 100 ML IV SCH (17:20)
[2022-09-22 20:25] VITALS: BP 158/67
[2022-09-22] MEDS ORDERED: VANCOMYCIN 1250 MG/NS 250 ML PREMIX IV SCH (23:00)
[2022-09-22 23:17] VITALS: BP 117/70
[2022-09-23] MEDS: PIPERACILLIN SODIUM/TAZOBACTAM 4.5 GM in NS (IVPB) 100 ML IV SCH ×2 (01:30→08:13)
[2022-09-23 04:38] VITALS: BP 115/51
[2022-09-23] MEDS: NS W/KCL 20 MEQ/L 1,000 ML IV SCH (05:09)
[2022-09-23 07:29] VITALS: BP 153/70
[2022-09-23] MEDS: HYDROcodone/APAP 5 MG/325 MG (LORTAB) TAB PO PRN (08:46)
[2022-09-23 09:10] VITALS: BP 153/70
[2022-09-23] MEDS ORDERED: TROUGH ORDER-PHARMACY XX NR (22:00)
== END 2022-09-23 09:10 | disposition short-term general hospital, planned readmission (82) ==
LOC: EDUNIT# 20:53 → ER 20:54 → UNDOADMOB 09-22 03:33 → 4TH 09-22 03:33 → UNDOADMOB 09-22 06:50 → UNDODISOB 09-23 09:10
PROVIDERS: ADMIT Internal Medicine; ATTEND Family Medicine
DX: G93.40 Encephalopathy, unspecified (principal); J96.90 Respiratory failure, unspecified, unspecified whether with hypoxia or hypercapnia; R53.81 Other malaise; E87.6 Hypokalemia; R41.0 Disorientation, unspecified; Z87.891 Personal history of nicotine dependence; Z79.01 Long term (current) use of anticoagulants; Z99.81 Dependence on supplemental oxygen
CPT/HCPCS: 51702; 70450; 71045; 71275; 74177; 80048; 80053; 81000; 82140; 82805; 83605; 83735; 85025 ×2; 85610; 85730; 87040; 87088; 87636; 96366; 96375; 96376 ×2; 99285; G0378; 36415